=== PATIENT | female | born 1955 | race Caucasian/White ===

== ENCOUNTER 2022-08-28 13:36 | Outpatient (OUT) | payer MEDICARE, SELFPAY ==
[2022-08-28 15:41] LABS: Estimated Average Glucose 180 mg/dL; Glycohemoglobin A1C 7.9 % (4.5-6.2)
== END 2022-08-28 13:37 ==
LOC: LAB 13:41
PROVIDERS: PCP Nurse Practitioner; Visit Provider Nurse Practitioner
DX: E11.9 Type 2 diabetes mellitus without complications (principal)
CPT/HCPCS: 36415; 83036

== ENCOUNTER 2023-01-26 11:45 | Outpatient (OUT) | payer MEDICARE, SELFPAY ==
[2023-01-26 12:28] LABS: Basophils Percent Auto 0.6 % (0.2-2.0); Eosinophils Absolute Auto 0.1 10^3/uL (0.0-0.7); Eosinophils Percent Auto 1.5 % (0.9-7.0); Hematocrit 43.7 % (36.0-48.0); Immature Granulocytes Abs Auto 0.02 10^3/uL (0.00-0.03); Immature Granulocytes Pct Auto 0.3 % (0.0-0.5); Lymphocytes Absolute Auto 2.3 10^3/uL (1.2-3.8); Mean Corpuscular Volume 90.7 fL (81.0-99.0); Mean Platelet Volume 8.9 fL (9.5-13.5); Monocytes Absolute Auto 0.4 10^3/uL (0.3-0.8); Monocytes Percent Auto 6.5 % (1.7-12.0); Neutrophils Absolute Auto 3.9 10^3/uL (1.4-6.5); Neutrophils Percent Auto 57.1 % (43.0-75.0); Platelet Count 222 10^3/uL (150-450); Red Blood Count 4.82 10^6/uL (4.20-5.40); White Blood Count 6.7 10^3/uL (4.0-11.0)
[2023-01-26 12:32] LABS: Bilirubin Urine NEGATIVE (NEGATIVE); Blood Urine NEGATIVE (NEGATIVE); Color Urine LT. YELLOW (YELLOW); Glucose Urine UA NEGATIVE (NEGATIVE); Ketones Urine TRACE mg/dL (NEGATIVE); Leukocyte Esterase Urine SMALL (NEGATIVE); Nitrite Urine NEGATIVE (NEGATIVE); Protein Urine NEGATIVE (NEG/TRACE); Urobilinogen Urine 0.2 EU/dL (0.2-1.0); pH Urine 6.5 (5.0-9.0)
[2023-01-26 12:39] LABS: Bacteria Urine TRACE #/HPF (NONE SEEN); Cast Seen? NONE SEEN #/LPF (NONE SEEN); Clarity Urine SLIGHTLY CLOUDY (CLEAR); Crystals Seen? None Seen #/HPF (None Seen); Mucus Urine NONE SEEN (NONE SEEN); RBC Urine NONE SEEN #/HPF (0-2); Squamous Epithelial Cell Urine RARE #/LPF (NONE/RARE)
[2023-01-26 12:47] LABS: Alanine Aminotransferase 50 U/L (14-59); Albumin Globulin Ratio 0.9; Albumin Level 3.6 g/dL (3.4-5.0); Alkaline Phosphatase 150 U/L (46-116); Anion Gap 8.4; Aspartate Amino Transferase 34 U/L (15-37); BUN Creatinine Ratio 24.6; Bilirubin Total 0.3 mg/dL (0.2-1.0); Calcium 9.3 mg/dL (8.5-10.1); Carbon Dioxide 32.4 mmol/L (21.0-32.0); Chloride 98 mmol/L (98-107); Chol HDL Ratio 2.4; Cholesterol 138 mg/dL (<=200); Estimated GFR (African America >60 (>=60); Estimated GFR (Non-African Ame >60 (>=60); Glucose 158 mg/dL (74-106); HDL Cholesterol 58 mg/dL (40-60); LDL Cholesterol Calculated 51.6 mg/dL; Potassium 3.8 mmol/L (3.5-5.1); Sodium 135 mmol/L (136-145); Total Protein 7.6 g/dL (6.4-8.2); Triglycerides 142 mg/dL (<=150); VLDL CHOLESTEROL 28.4 mg/dL
[2023-01-26 12:48] LABS: Microalbumin Urine Random 2.3 mg/dL (<=30.0)
[2023-01-26 12:56] LABS: Estimated Average Glucose 197 mg/dL; Glycohemoglobin A1C 8.5 % (4.5-6.2)
== END 2023-01-26 11:46 | disposition home or self-care (01) ==
LOC: LAB 11:48
PROVIDERS: PCP Nurse Practitioner; Visit Provider Nurse Practitioner
DX: E11.9 Type 2 diabetes mellitus without complications (principal)
CPT/HCPCS: 36415; 80053; 80061; 81001; 82043; 83036; 85025

== ENCOUNTER 2023-05-08 09:27 | Outpatient (OUT) | payer MEDICARE, SELFPAY ==
--- OUTSIDE RECORDS SUMMARY | 2023-05-08 09:49 | XMS_ITS | CCD ---
Author Name Unknown Address [address] [place] [address] Organization [facility] Care Team Providers Care Obstetrics And Gynecology Professor Name Role Phone ROSSANA ALICIA Primary Care Physician Julian BONILLA Attending Unavailable NILJulian Khoury Attending Unavailable AICHHOLZ, ROSSANA J Referring Unavailable NILJulian Khoury Attending Unavailable Julian BONILLA Attending Unavailable AICHHOLZ, ROSSANA J Referring Unavailable AICHHOLZ, CULINARY MANAGER ROSSANA Admitting Unavailable AICHHOLZ, CULINARY MANAGER ROSSANA Attending Unavailable AICHHOLZ, CULINARY MANAGER ROSSANA Consulting Unavailable AICHHOLZ, CULINARY MANAGER ROSSANA Primary Care Unavailable NILL ., DR GUERRA Attending Unavailable NILL ., DR GUERRA Consulting Unavailable NILL ., DR GUERRA Admitting Unavailable AICHHOLZ, CULINARY MANAGER ROSSANA Primary Care Unavailable GURPREET II, PHILIP Consulting Unavailable CIERRA MAGANA Consulting Unavailable AICHHOLZ, CULINARY MANAGER ROSSANA Admitting Unavailable AICHHOLZ, CULINARY MANAGER ROSSANA Attending Unavailable AICHHOLZ, CULINARY MANAGER ROSSANA Consulting Unavailable AICHHOLZ, CULINARY MANAGER ROSSANA Primary Care Unavailable AICHHOLZ, CULINARY MANAGER ROSSANA Primary Care Unavailable AICHHOLZ, CULINARY MANAGER ROSSANA Admitting Unavailable AICHHOLZ, CULINARY MANAGER ROSSANA Attending Unavailable AICHHOLZ, CULINARY MANAGER ROSSANA Consulting Unavailable AICHHOLZ, CULINARY MANAGER ROSSANA Primary Care Unavailable DR RUDDY ROSALES V Consulting Unavailable AICHHOLZ, CULINARY MANAGER ROSSANA Admitting Unavailable AICHHOLZ, CULINARY MANAGER ROSSAAN Attending Unavailable AICHHOLZ, CULINARY MANAGER ROSSANA Consulting Unavailable AICHHOLZ, ROSSANA Attending Unavailable AICHHOLZ, ROSSANA Attending Unavailable CIERRA DRUMMOND Attending Unavailable Allergies Allergy Classification Reported Allergen(s) Allergy Type Date of Onset Reaction(s) Facility (3 sources) Cefaclor; Translations: [cefaclor] Drug Allergy Abnormal breathing (finding) [facility] (3 sources) Penicillin; Translations: [penicillin] Drug Allergy Weal (disorder), Abnormal breathing (finding) [facility] (3 sources) Streptococcus pneumoniae type 1 capsular polysaccharide antigen / Streptococcus pneumoniae type 10A capsular polysaccharide antigen / Streptococcus pneumoniae type 11A capsular polysaccharide antigen / Streptococcus pneumoniae type 12F capsular polysaccharide antigen / Streptococcus pneumoniae type 14 capsular polysaccharide antigen / Streptococcus pneumoniae type 15B capsular polysaccharide antigen / Streptococcus pneumoniae type 17F capsular polysaccharide antigen / Streptococcus pneumoniae type 18C capsular polysaccharide antigen / Streptococcus pneumoniae type 19A capsular polysaccharide antigen / Streptococcus pneumoniae type 19F capsular polysaccharide antigen / Streptococcus pneumoniae type 2 capsular polysaccharide antigen / Streptococcus pneumoniae type 20 capsular polysaccharide antigen / Streptococcus pneumoniae type 22F capsular polysaccharide antigen / Streptococcus pneumoniae type 23F capsular polysaccharide antigen / Streptococcus pneumoniae type 3 capsular polysaccharide antigen / Streptococcus pneumoniae type 33F capsular polysaccharide antigen / Streptococcus pneumoniae type 4 capsular polysaccharide antigen / Streptococcus pneumoniae type 5 capsular polysaccharide antigen / Streptococcus pneumoniae type 6B capsular polysaccharide antigen / Streptococcus pneumoniae type 7F capsular polysaccharide antigen / Streptococcus pneumoniae type 8 capsular polysaccharide antigen / Streptococcus pneumoniae type 9N capsular polysaccharide antigen / Streptococcus pneumoniae type 9V capsular polysaccharide antigen; Translations: [pneumococcal 23-valent vaccine] Drug Allergy Dyspnea (finding), Weal (disorder) [facility] (1 source) Cefaclor Drug Allergy 4 [facility] (1 source) Penicillins Drug allergy (disorder) 4 [facility] (1 source) Pneumovax 23 Drug allergy (disorder) 4 [facility] Medications Current Medications Medication Drug Class(es) Dates Sig (Normalized) Sig (Original) amLODIPine 2.5 mg oral tablet (2 sources) Dihydropyridine Calcium Channel Miriam Start: 03-13-20 Norvasc 2.5 mg Tab Refills(s) 0 Start Date: 03/13/19 Status: Ordered aspirin 81 mg delayed release oral tablet (2 sources) Platelet Aggregation Inhibitor, Nonsteroidal Anti-inflammatory Drug Start: 08-16-19 take 1 mg by mouth once daily aspirin 81 mg Oral EC Tab mg tab(s), Oral, Daily, Refills(s) 0 Start Date: 08/15/18 Status: Ordered atorvastatin 80 mg oral tablet (2 sources) HMG-CoA Reductase Inhibitor Start: 04-18-19 take 1 tablet by mouth once daily atorvastatin 80 mg Tab 80 mg = 1 tab(s), Oral, Daily, Refills(s) 0 Start Date: 04/18/22 Status: Ordered 0.5 ml dulaglutide 1.5 mg/ml auto-injector (2 sources) GLP-1 Receptor Agonist Start: 03-13-20 Trulicity Pen 0.75 mg/0.5 mL subcutaneous solution Refills(s) 0 Start Date: 03/13/19 Status: Ordered glucosamine hydrochloride 1500 mg oral tablet (2 sources) Start: 08-16-19 take 1500 mg by mouth once daily glucosamine 1,500 mg, Oral, Daily, Refills(s) 0 Start Date: 08/15/18 Status: Ordered hydroCHLOROthiazide 25 mg oral tablet (2 sources) Thiazide Diuretic Start: 03-13-20 hydrochlorothiazide 25 mg oral tablet Refills(s) 0 Start Date: 03/13/19 Status: Ordered metFORMIN hydrochloride 500 mg oral tablet (2 sources) Biguanide Start: 03-13-20 metformin 500 mg oral tablet Refills(s) 0 Start Date: 03/13/19 Status: Ordered metoprolol tartrate 25 mg oral tablet (2 sources) beta-Adrenergic Miriam Start: 08-16-19 take 1 tablet by mouth once daily Metoprolol tartrate 25 mg Tab 25 mg = 1 tab(s), Oral, Daily, # 30 tab(s), Refills(s) 0 Start Date: 08/15/18 Status: Ordered nystatin topical 100,000 units/g powder (2 sources) Start: 08-16-19 nystatin topical 100,000 units/g powder danny, Topical, TID, Refill(s) 0 Start Date: 08/15/18 Status: Ordered ProAir HFA 90 mcg/inh inhalation aerosol (2 sources) Start: 08-16-19 take 1 puff(s) by inhalation four times daily ProAir HFA 90 mcg/inh inhalation aerosol puff(s), Inhalation, QID, Refill(s) 0 Start Date: 08/15/18 Status: Ordered Completed/Discontinued Medications Medication Drug Class(es) Dates Sig (Normalized) Sig (Original) fluticasone / vilanterol (2 sources) Corticosteroid, beta2-Adrenergic Agonist Start: 08-15-2018 take 1 [IU] by inhalation once daily Breo Ellipta 100 mcg-25 mcg inhalation powder 1 puff(s), Inhalation, Daily, 1 unit(s), Refill(s) 2, 30 dose unit Start Date: 08/15/18 Status: Ordered Problems Active Problems Problem Classification Problem Date Documented Da te Episodic/Chronic Asthma (2 sources) Asthma 03-13-2019 Chronic Chronic obstructive pulmonary disease and bronchiectasis (4 sources) Pulmonary emphysema; Translations: [Emphysema, unspecified] Onset: 12-23-2021 03-13-2019 Chronic Diabetes mellitus with complications (1 source) Type 2 diabetes mellitus with diabetic peripheral angiopathy without gangrene; Translations: [TYPE 2 DM DIAB P ANGIOPATH NO GNGRN] Onset: 05-23-2022 Chronic Diabetes mellitus without complication (6 sources) Diabetes mellitus; Translations: [Type 2 diabetes mellitus without complications] Onset: 12-21-2021 03-13-2019 Chronic Disorders of lipid metabolism (3 sources) Hyperlipidemia; Translations: [Hyperlipidemia, unspecified] Onset: 05-23-2022 04-14-2022 Chronic Essential hypertension (3 sources) Benign essential hypertension; Translations: [Essential (primary) hypertension] Onset: 05-23-2022 08-15-2018 Chronic Other aftercare (1 source) senior care (current) use of aspirin; Translations: [PICU NURSE CURRENT USE OF ASPIRIN] Onset: 05-23-2022 Episodic Other aftercare (1 source) 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 (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) use of oral hypoglycemic drugs; Translations: [GROUP HOME USE ORAL HYPOGLYCEMIC DX] Onset: 05-23-2022 Episodic Other and unspecified benign neoplasm (2 sources) Benign neoplasm of ascending colon; Translations: [Benign neoplasm of ascending colon] Onset: 05-31-2022 Episodic Other and unspecified benign neoplasm (2 sources) Benign neoplasm of transverse colon; Translations: [Benign neoplasm of transverse colon] Onset: 05-31-2022 Episodic Other and unspecified benign neoplasm (1 source) Benign neoplasm of ascending colon; Translations: [BENIGN NEOPLASM OF ASCENDING COLON] Onset: 05-23-2022 Episodic Other and unspecified benign neoplasm (1 source) Benign neoplasm of transverse colon; Translations: [BENIGN NEOPLASM OF TRANSVERSE COLON] Onset: 05-23-2022 Episodic Other nutritional; endocrine; and metabolic disorders (2 sources) Morbid obesity 08-15-2018 Chronic Other nutritional; endocrine; and metabolic disorders (1 source) Morbid (severe) obesity due to excess calories; Translations: [MORBID SEVERE OBES D/T EXCESS HUNTER] Onset: 05-23-2022 Chronic Other nutritional; endocrine; and metabolic disorders (1 source) Body mass index (BMI) 40.0-44.9, adult; Translations: [BODY MASS INDEX BMI 40.0-44.9 ADULT] Onset: 05-23-2022 Chronic Other screening for suspected conditions (not mental disorders or infectious disease) (11 sources) Screening for malignant neoplasm of colon done; Translations: [Encounter for screening for malignant neoplasm of colon] Onset: 04-18-2022 Episodic Other upper respiratory disease (2 sources) Hoarse 04-14-2022 Episodic Peripheral and visceral atherosclerosis (2 sources) Peripheral vascular disease 04-14-2022 Chronic Residual codes; unclassified (2 sources) Sleep apnea 04-14-2022 Chronic Residual codes; unclassified (1 source) Sleep apnea, unspecified; Translations: [SLEEP APNEA UNSPECIFIED] Onset: 05-23-2022 Chronic Residual codes; unclassified (2 sources) Edema of lower extremity 04-14-2022 Episodic Residual codes; unclassified (1 source) Family history of malignant neoplasm of breast; Translations: [FAMILY HX MALIG NEOPLASM OF BREAST] Onset: 06-15-2022 Episodic Residual codes; unclassified (1 source) Family history of malignant neoplasm of bladder; Translations: [FAM HX MALIGNANT NEOPLASM BLADDER] Onset: 06-15-2022 Episodic Residual codes; unclassified (1 source) Family history of malignant neoplasm of other organs or systems; Translations: [FAM HX MALIG NEOPLASM OTH ORGN/SYS] Onset: 06-15-2022 Episodic Residual codes; unclassified (1 source) Acquired absence of other specified parts of digestive tract; Translations: [ACQ ABSENCE OTH PART DIGESTV TRACT] Onset: 05-23-2022 Episodic Retinal detachments; defects; vascular occlusion; and retinopathy (2 sources) Retinal artery occlusion 04-14-2022 Chronic Screening and history of mental health and substance abuse codes (1 source) Personal history of nicotine dependence; Translations: [PERSONAL HISTORY OF NICOTINE DEPEND] Onset: 05-23-2022 Episodic Unclassified (2 sources) Patient encounter status 04-18-2022 Unclassified (3 sources) CONTACT W/AND (SUSP) EXPOS COVID-19; Translations: [CONTACT W/AND (SUSP) EXPOS COVID-19] Onset: 09-03-2021 Past or Other Problems Problem Classification Problem Date Documented Da te Episodic/Chronic Unclassified (1 source) CONTACT W/AND (SUSP) EXPOS COVID-19; Translations: [CONTACT W/AND (SUSP) EXPOS COVID-19] Onset: 09-01-2021 Results Test Name Value Interpretation Reference Range Facility MG MAMM SCREEN 3D JOSE CADon 06-07-2022 MG MAMM SCREEN 3D JOSE CAD Patient: JAYE PIRES Exam Date: 06/07/2022 : 1955 Gender:F Ordering : RON ROSSANABernice ALICIA CULINARY MANAGER Admission #: [id number] Family : Order #: [id number] CLICK HERE TO VIEW EXAM RADIOLOGY REPORT PROCEDURE: MAMMOGRAM SCREENING 3D BILATERAL CAD COMPARISON: MG MAMM SCREEN JOSE W CAD, 10/09/2019. MG MAMM SCREEN 3D JOSE CAD, 05/31/2021. INDICATIONS: Screening mammography Calculator Name NCI Breast Cancer Risk Assessment Tool 5 Year Breast Cancer Risk 5.80% Lifetime Breast Cancer Risk 18.80% Personal Breast Cancer No Personal Ovarian Cancer No Treatments None Family Cancers Sister with breast cancer at age 65; Mother with breast cancer at age 60; Brother with bladder cancer at age 63; Brother with skin cancer at age 50; Father with skin cancer at age 60. LOCATION: [facility] BREAST COMPOSITION: Scattered areas fibroglandular density. FINDINGS: DIAGNOSTIC CATEGORY 1--NEGATIVE. NO CHANGE FROM COMPARISON ASSESSMENT. Scattered benign-appearing calcifications are present. RIGHT BREAST: No significant suspicious finding. LEFT BREAST: No significant suspicious finding. RECOMMENDATIONS: ROUTINE MAMMOGRAM AND CLINICAL EVALUATION IN 12 MONTHS. PLEASE NOTE: A NORMAL MAMMOGRAM DOES NOT EXCLUDE THE POSSIBILITY OF BREAST CANCER. A CLINICALLY SUSPICIOUS PALPABLE LUMP SHOULD BE BIOPSIED. Dictated by: Ruddy Rosales MD on 06/07/2022 at 13:31 Approved by: Ruddy Rosales MD on 06/07/2022 at 13:35 Normal [facility] Ambulatory Visit Summaryon 0 05-31-2022 Ambulatory Visit Summary JAYE PIRES :1955 Visit Date:05/31/2022 Ambulatory Visit Instructions Your Diagnosis Benign neoplasm of ascending colon Benign neoplasm of transverse colon Your Care Team Attending Physician - FRANKLIN CORTEZ, Julian Carrera Primary Care Physician - ROSSANA ALICIA CNP This Is Your Medications List Contact prescribing physician if questions or concerns albuterol (ProAir HFA 90 mcg/inh inhalation aerosol) amlodipine (Norvasc 2.5 mg Tab) aspirin (aspirin 81 mg Oral EC Tab) atorvastatin (atorvastatin 80 mg Tab) dulaglutide (Trulicity Pen 0.75 mg/0.5 mL subcutaneous solution) fluticasone-vilanterol (Breo Ellipta 100 mcg-25 mcg inhalation powder) glucosamine hydrochlorothiazide (hydrochlorothiazide 25 mg oral tablet) metformin (metformin 500 mg oral tablet) metoprolol (Metoprolol tartrate 25 mg Tab) nystatin topical (nystatin topical 100,000 units/g powder) Procedures Performed Colonoscopy (05/17/2022), EGD - Esophagogastroduodenoscopy (05/17/2022), Cholecystectomy (2013), Colonoscopy (02/22/2011), Tonsils and adenoids (1969), Dilation and curettage, EGD - Esophagogastroduodenoscopy, Excision of lipoma, Oophorectomy. Medications What How Much When Instructions Unchanged albuterol (ProAir HFA 90 mcg/ inh inhalation aerosol) Inhalation 4 times a day Contact prescribing physician if questions or concerns Unchanged amlodipine (Norvasc 2.5 mg Tab) Contact prescribing physician if questions or concerns Unchanged aspirin (aspirin 81 mg Oral EC Tab) By Mouth Every day Contact prescribing physician if questions or concerns Unchanged atorvastatin (atorvastatin 80 mg Tab) 1 Tablets By Mouth Every day Contact prescribing physician if questions or concerns Unchanged dulaglutide (Trulicity Pen 0.75 mg/ 0.5 mL subcutaneous solution) Contact prescribing physician if questions or concerns Unchanged fluticasone-vilanterol (Breo Ellipta 100 mcg-25 mcg inhalation powder) 1 Puffs Inhalation Every day 30 dose unit Contact prescribing physician if questions or concerns Unchanged glucosamine 1,500 Milligram By Mouth Every day Contact prescribing physician if questions or concerns Unchanged hydrochlorothiazide (hydrochlorothiazide 25 mg oral tablet) Contact prescribing physician if questions or concerns Unchanged metformin (metformin 500 mg oral tablet) Contact prescribing physician if questions or concerns Unchanged metoprolol (Metoprolol tartrate 25 mg Tab) 1 Tablets By Mouth Every day Contact prescribing physician if questions or concerns Unchanged nystatin topical (nystatin topical 100,000 units/ g powder) Topical 3 times a day Contact prescribing physician if questions or concerns Allergies Ceclor (Breathing abnormal) Pneumovax 23 (SOB - Shortness of breath, Hives) penicillin (Hives, Breathing abnormal) Problems Ongoing - Any problem that you are currently receiving treatment for. Abnormal liver function test Asthma Benign essential hypertension Diabetes mellitus Emphysema lung Hyperlipidemia Lower extremity edema Morbid obesity Persistent hoarseness PVD (peripheral vascular disease) Retinal artery occlusion Screening for malignant neoplasm of colon Sleep apnea Tubular adenoma of colon Tubular adenoma of colon Normal [facility] General Surgery Office/Clini c Noteon 05-31-2022 General Surgery Office/Clinic Note Chief Complaint post operative follow up HPI Staff 14 day post operative follow up post colonoscopy with ascending colon and transverse colon polypectomies. History of Present Illness s/p colonoscopy with polypectomy x2; denies abd pain or blood in stools; 2 small tubular adenomas removed from asc and transverse colon. Review of Systems ROS - Provider Constitutional: no fever, no sweats, no weight loss. Eyes: no glasses, no blurred vision, no visual loss. ENMT: no dentures, no hoarseness, no swallowing difficulties, no hearing loss, no ear infection(s), no nose bleeds. Cardiovascular: normal blood pressure, no chest pain, regular heartbeat, no heart murmur. Respiratory: no shortness of breath, no cough, no asthma, no wheezing. Gastrointestinal: no nausea, no vomiting, no diarrhea, no constipation, no blood in stool, no change in bowel habits, no abdominal pain, no hepatitis. Genitourinary: no kidney stones, no urine infection, no dysuria. Musculoskeletal: no pain, no weakness. Skin: no changing moles, no rash, no skin lumps. Neurologic: no seizures, no epilepsy, no headache. Psychiatric: no emotional or psychiatric problem. Heme/Lymph: no bleeding problems, no anemia, no blood clots, no transfusions. Allergy/Immunologic: no swollen lymph nodes/glands, no IV drug abuse. Other: Additional ROS info: Except as noted in the above Review of Systems and in the History of Present Illness, all other systems have been reviewed and are negative or noncontributory. Assessment/Plan 1. Benign neoplasm of ascending colon (D12.2: Benign neoplasm of ascending colon) plan surveillance colonoscopy in 5 years; call sooner if problems/questions. 2. Benign neoplasm of transverse colon (D12.3: Benign neoplasm of transverse colon) see # 1 Follow-up No qualifying data available Problem List/Past Medical History Ongoing Abnormal liver function test Asthma Benign essential hypertension Diabetes mellitus Emphysema lung Hyperlipidemia Lower extremity edema Morbid obesity Persistent hoarseness PVD (peripheral vascular disease) Retinal artery occlusion Screening for malignant neoplasm of colon Sleep apnea Tubular adenoma of colon Tubular adenoma of colon Historical No qualifying data Procedure/Surgical History Colonoscopy (05/17/2022), EGD - Esophagogastroduodenoscopy (05/17/2022), Cholecystectomy (2013), Colonoscopy (02/22/2011), Tonsils and adenoids (1969), Dilation and curettage, EGD - Esophagogastroduodenoscopy, Excision of lipoma, Oophorectomy. Medications aspirin 81 mg Oral EC Tab, Oral, Daily atorvastatin 80 mg Tab, 80 mg= 1 tab(s), Oral, Daily Breo Ellipta 100 mcg-25 mcg inhalation powder, 1 puff(s), Inhalation, Daily glucosamine, 1500 mg, Oral, Daily hydrochlorothiazide 25 mg oral tablet metformin 500 mg oral tablet Metoprolol tartrate 25 mg Tab, 25 mg= 1 tab(s), Oral, Daily Norvasc 2.5 mg Tab nystatin topical 100,000 units/g powder, Topical, TID ProAir HFA 90 mcg/inh inhalation aerosol, Inhalation, QID Trulicity Pen 0.75 mg/0.5 mL subcutaneous solution Allergies Ceclor (Breathing abnormal) Pneumovax 23 (SOB - Shortness of breath, Hives) penicillin (Hives, Breathing abnormal) Social History Alcohol - No Risk, 03/13/2019 1-2 times per year, 03/13/2019 Substance Abuse - Denies Substance Abuse, 03/13/2019 Tobacco - Denies Tobacco Use, 03/13/2019 Former smoker, quit more than 30 days ago Tobacco Use:. Never Smokeless Tobacco Use:. Cigarettes, 1 per day. Started age 16.0 Years. Stopped age 40 Years., 04/18/2022 Family History Diabetes mellitus type 2: Father and Brother. Hypertension: Father, Sister and Brother. Leukemia: Mother. Ovarian cancer: Sister. Primary malignant neoplasm of bladder: Father and Brother. Primary malignant neoplasm of female breast: Mother and Sister. Immunizations Vaccine Date Status Comments SARSCoV2 mRNA(acngpuiau-gzjs-ebnyaj) vac 08/18/2021 Recorded SARS-CoV-2 (COVID-19) mRNA BNT-162b2 vax 01/10/2021 Recorded influenza virus vaccine, inactivated 12/14/2020 Recorded SARS-CoV-2 (COVID-19) mRNA BNT-162b2 vax 06/18/2020 Recorded SARS-CoV-2 (COVID-19) mRNA BNT-162b2 vax 05/29/2020 Recorded 2022-04-18: TPV65 influenza virus vaccine, live, trivalent 12/30/2018 Recorded Normal [facility] Comment on above: Result Comment: Elec tronically Signed By: FRANKLIN CORTEZ, Julian Smith\Date and Time Signed: 05/31/22 14:36 EST Reminderson 05-31-2022 Reminders - From: Billie Curtis LPN To: N - Clinical; Sent: 05/31/2022 16:01:22 EST Show up: 04/16/2027 07:00:00 EST Subject: colonoscopy recall Due Date/Time: 05/17/2027 07:00:00 EST Reminder/Recall Patient is due for colonoscopy 05/17/27 due to history of colonic polyps. Normal [facility] Pathology Noteon 05-19-2022 Pathology Note [id number]#1.00CD:127 Normal [facility] Outside Colonoscopyon 2022 Outside Colonoscopy [id number]#[id number]:127 Normal [facility] POINT OF CARE GLUCOSEon 04-27 Glucose [Mass/Vol] 176 mg/dL Critically high 74-106 [facility] Comment on above: Performed By: #### P OCGLUC ####[facility] [address] [address]DrMavis Estrella Pre-Certification Formon Pre-Certification Form [id number]#[id number]:127 Normal [facility] Facesheeton 04-20-2022 Facesheet [id number]#[id number]:127 Normal [facility] Consent for Procedure/Surger yon 04-19-2022 Consent for Procedure/Surgery [id number]#[id number]:127 Normal [facility] Physician Referralon 023 Physician Referral [id number]#[id number]:127 Normal [facility] Physician Referralon 023 Physician Referral [id number]#1.00CD:127 Normal [facility] MICROALBUMIN URINEon 022 Albumin, Urine <3.0 Normal Not Estab. [facility] Comment on above: Result Comment: Ve rified by repeat analysis Performed By: #### M ALBLC #### [facility] [address] [place] [address] Dr. Aga Estrella CBC AUTO DIFFon 12-21-2021 BASO # 0.0 103/ul Normal 0.0-0.1 [facility] Comment on above: Performed By: #### C BC #### [facility] [address] [place] [address] Dr. Aga Estrella Basophils/100 WBC (Bld) 0.4 % Normal 0.2-2.0 [facility] Comment on above: Performed By: #### C BC #### [facility] [address] [place] [address] Dr. Aga Estrella EO # 0.1 103/ul Normal 0.0-0.7 [facility] Comment on above: Performed By: #### C BC #### [facility] [address] [place] [address] Dr. Aga Estrella Eosinophils/100 WBC (Bld) 1.6 % Normal 0.9-7.0 [facility] Comment on above: Performed By: #### C BC #### [facility] [address] [place] [address] Dr. Aga Estrella Erythrocyte distribution width (RBC) [Ratio] 14.2 % Normal 11.0-15.0 [facility] Comment on above: Performed By: #### C BC #### [facility] [address] [place] [address] Dr. Aga Estrella Hematocrit (Bld) [Volume fraction] 42.1 % Normal 36.0-48.0 [facility] Comment on above: Performed By: #### C BC #### [facility] [address] [place] [address] Dr. Aga Estrella Hemoglobin (Bld) [Mass/Vol] 13.1 g/dL Normal 12.0-16.0 [facility] Comment on above: Performed By: #### C BC #### [facility] [address] [place] [address] Dr. Aga Estrella IG # 0.02 10e3/ul Normal 0.00-0.03 [facility] Comment on above: Performed By: #### C BC #### [facility] [address] [place] [address] Dr. Aga Estrella IG % 0.4 % Normal 0.0-0.5 [facility] Comment on above: Performed By: #### C BC #### [facility] [address] [place] [address] Dr. Aga Estrella LYMPH # 1.7 103/ul Normal 1.2-3.8 [facility] Comment on above: Performed By: #### C BC #### [facility] [address] [place] [address] Dr. Aga Estrella Lymphocytes/100 WBC (Bld) 29.4 % Normal 20.5-60.0 [facility] Comment on above: Performed By: #### C BC #### [facility] [address] [place] [address] Dr. Aga Estrella MANUAL DIFF REQ NO Normal [facility] Comment on above: Performed By: #### C BC #### [facility] [address] [address] [address] Aag Estrella MCH (RBC) [Entitic mass] 28.8 pg Normal 26.7-34.0 [facility] Comment on above: Performed By: #### C BC #### [facility] [address] [place] [address] Dr. Aga Estrella MCHC (RBC) [Mass/Vol] 31.1 g/dL Normal 29.9-35.2 [facility] Comment on above: Performed By: #### C BC #### [facility] [address] [place] [address] Dr. Aga Estrella MCV (RBC) [Entitic vol] 92.5 fL Normal 81.0-99.0 [facility] Comment on above: Performed By: #### C BC #### [facility] [address] [place] [address] Dr. Aga Estrella MONO # 0.4 103/ul Normal 0.3-0.8 [facility] Comment on above: Performed By: #### C BC #### [facility] [address] [place] [address] Dr. Aga Estrella Monocytes/100 WBC (Bld) 6.4 % Normal 1.7-12.0 [facility] Comment on above: Performed By: #### C BC #### [facility] [address] [place] [address] Dr. Aga Estrella NEUT # 3.5 103/ul Normal 1.4-6.5 [facility] Comment on above: Performed By: #### C BC #### [facility] [address] [place] [address] Dr. Aga Estrella Neutrophils/100 WBC (Bld) 61.8 % Normal 43.0-75.0 [facility] Comment on above: Performed By: #### C BC #### [facility] [address] [place] [address] Dr. Aga Estrella Platelet mean volume (Bld) [Entitic vol] 10.2 fL Normal 9.5-13.5 [facility] Comment on above: Performed By: #### C BC #### [facility] [address] [address] [address] Aga Estrella PLT 195 103/ul Normal 150-450 [facility] Comment on above: Performed By: #### C BC #### [facility] [address] [place] [address] Dr. Aga Estrella RBC 4.55 106/ul Normal 4.20-5.40 [facility] Comment on above: Performed By: #### C BC #### [facility] [address] [place] [address] Dr. Aga Estrella WBC 5.7 103/ul Normal 4.0-11.0 [facility] Comment on above: Performed By: #### C BC #### [facility] [address] [place] [address] Dr. Aga Estrella GLYCOHEMOGLOBIN A1Con 2021 ADA RECOMMENDATION SEE BELOW Normal [facility] Comment on above: Result Comment: ADA RECOMMENDED LIMIT 4.0 - 6.0 ADA THERAPEUTIC TARGET < 7.0 ACTION SUGGESTED > 7.0 Performed By: #### A 1C #### [facility] [address] [place] [address] Dr. Aga Estrella Glucose [Mass/Vol] 192 mg/dL Normal [facility] Comment on above: Performed By: #### A 1C #### [facility] [address] [place] [address] Dr. Aga Estrella HbA1c (Bld) [Mass fraction] 8.3 % Critically high 4.5-6.2 [facility] Comment on above: Performed By: #### A 1C #### [facility] [address] [place] [address] Dr. Aga Estrella LIPID PROFILEon 12-21-2021 CHOL-HDL RATIO NORM SEE BELOW Normal [facility] Comment on above: Result Comment: 3.3 - 4.4 LOW RISK 4.4 - 7.1 AVERAGE RISK 7.1 - 11.0 MODERATE RISK >11.0 HIGH RISK Performed By: #### L IPID, CMP #### [facility] [address] [address] [address] Aga Estrella Cholesterol [Mass/Vol] 123 mg/dL Normal <=200 [facility] Comment on above: Performed By: #### L IPID, CMP #### [facility] [address] [address] [address] Aga Estrella Cholesterol in HDL [Mass/Vol] 51 mg/dL Normal 40-60 [facility] Comment on above: Performed By: #### L IPID, CMP #### [facility] [address] [address] [address] Aga Estrella Cholesterol in LDL [Mass/Vol] 45.8 mg/dL Normal [facility] Comment on above: Performed By: #### L IPID, CMP #### [facility] [address] [place] [address] Dr. Aga Estrella Cholesterol.total/ Cholesterol in HDL [Mass ratio] 2.4 {ratio} Normal [facility] Comment on above: Performed By: #### L IPID, CMP #### [facility] [address] [address] [address] Aga Estrella HDL NORMAL > or = 60 mg/dl - LO W CARDIOVASCULAR RISK <40 mg/dl - HIGH CARDIOVASCULAR RISK Normal [facility] Comment on above: Performed By: #### L IPID, CMP #### [facility] [address] [address] [address] Aga Estrella LDL CALC NORMAL SEE BELOW Normal [facility] Comment on above: Result Comment: <100 mg/dl OPTIMAL 100 - 129 mg/dl NEAR OR ABOVE OPTIMAL 130 - 159 mg/dl BORDERLINE HIGH 160 - 189 mg/dl HIGH >190 mg/dl VERY HIGH Performed By: #### L IPID, CMP #### [facility] [address] [address] [address] Aga Estrella Triglyceride [Mass/Vol] 131 mg/dL Normal <=150 [facility] Comment on above: Performed By: #### L IPID, CMP #### [facility] [address] [address] [address] Aga Estrella VLDL CALC 26.2 mg/dL Normal [facility] Comment on above: Performed By: #### L IPID, CMP #### [facility] [address] [address] [address] Aga Estrella PROF 14(COMP METB)on 022 Albumin [Mass/Vol] 3.5 g/dL Normal 3.4-5.0 [facility] Comment on above: Performed By: #### L IPID, CMP #### [facility] [address] [place] [address] Dr. Aga Estrella Albumin/Globulin [Mass ratio] 1.0 {ratio} Normal [facility] Comment on above: Performed By: #### L IPID, CMP #### [facility] [address] [place] [address] Dr. Aga Estrella ALP [Catalytic activity/Vol] 147 U/L Critically high 46-116 [facility] Comment on above: Performed By: #### L IPID, CMP #### [facility] [address] [place] [address] Dr. Aga Estrella ALT [Catalytic activity/Vol] 42 U/L Normal 14-59 [facility] Comment on above: Performed By: #### L IPID, CMP #### [facility] [address] [place] [address] Dr. Aga Estrlela Anion gap [Moles/Vol] 12.2 mmol/L Normal [facility] Comment on above: Performed By: #### L IPID, CMP #### [facility] [address] [place] [address] Dr. Aga Estrella AST [Catalytic activity/Vol] 32 U/L Normal 15-37 [facility] Comment on above: Performed By: #### L IPID, CMP #### [facility] [address] [place] [address] Dr. Aga Estrella Bilirubin [Mass/Vol] 0.3 mg/dL Normal 0.2-1.0 [facility] Comment on above: Performed By: #### L IPID, CMP #### [facility] [address] [place] [address] Dr. Aga Estrella Calcium [Mass/Vol] 9.1 mg/dL Normal 8.5-10.1 [facility] Comment on above: Performed By: #### L IPID, CMP #### [facility] [address] [place] [address] Dr. Aga Estrella Chloride [Moles/Vol] 103 mmol/L Normal 98-107 [facility] Comment on above: Performed By: #### L IPID, CMP #### [facility] [address] [place] [address] Dr. Aga Estrella CO2 [Moles/Vol] 29.9 mmol/L Normal 21.0-32.0 [facility] Comment on above: Performed By: #### L IPID, CMP #### [facility] [address] [place] [address] Dr. Aga Estrella Creatinine [Mass/Vol] 0.65 mg/dL Normal 0.55-1.02 [facility] Comment on above: Performed By: #### L IPID, CMP #### [facility] [address] [place] [address] Dr. Aga Estrella EGFR-AF SAUDI ARABIAN >60 Normal >=60 [facility] Comment on above: Performed By: #### L IPID, CMP #### [facility] [address] [place] [address] Dr. Aga Estrella EGFR-NON AF SAUDI ARABIAN >60 Normal >=60 [facility] Comment on above: Performed By: #### L IPID, CMP #### [facility] [address] [place] [address] Dr. Aga Estrella Globulin (S) [Mass/Vol] 3.6 g/dL Normal [facility] Comment on above: Performed By: #### L IPID, CMP #### [facility] [address] [place] [address] Dr. Aga Estrella Glucose [Mass/Vol] 156 mg/dL Critically high 74-106 [facility] Comment on above: Performed By: #### L IPID, CMP #### [facility] [address] [place] [address] Dr. Aga Estrella Potassium [Moles/Vol] 4.1 mmol/L Normal 3.5-5.1 [facility] Comment on above: Performed By: #### L IPID, CMP #### [facility] [address] [address] [address] Aga Estrella Protein [Mass/Vol] 7.1 g/dL Normal 6.4-8.2 [facility] Comment on above: Performed By: #### L IPID, CMP #### [facility] [address] [place] [address] Dr. Aga Estrella Sodium [Moles/Vol] 141 mmol/L Normal 136-145 [facility] Comment on above: Performed By: #### L IPID, CMP #### [facility] [address] [place] [address] Dr. Aga Estrella Urea nitrogen [Mass/Vol] 13.0 mg/dL Normal 7.0-18.0 [facility] Comment on above: Performed By: #### L IPID, CMP #### [facility] [address] [place] [address] Dr. Aga Estrella Urea nitrogen/Creatinin e [Mass ratio] 20.0 mg/mg Normal [facility] Comment on above: Performed By: #### L IPID, CMP #### [facility] [address] [place] [address] Dr. Aga Estrella UA RANDOM W/MICROSCOPICon BACTERIA NONE SEEN Normal NONE SEEN [facility] Comment on above: Performed By: #### U AMIC ####[facility] [address] [place], [place] [address]Dr. Aga Estrella Bilirubin Ql (U) Negative Normal NEGATIVE [facility] Comment on above: Performed By: #### U AMIC ####[facility] [address] [address]Dr. Aga Estrella CAST NONE SEEN Normal NONE SEEN [facility] Comment on above: Performed By: #### U AMIC ####[facility] [address] [address]Dr. Aga Estrella Clarity (U) CLEAR Normal CLEAR [facility] Comment on above: Performed By: #### U AMIC ####[facility] [address] [address]Dr. Yilan Estrella Color (U) LT. YELLOW Normal YELLOW [facility] Comment on above: Performed By: #### U AMIC ####[facility] [address] [address]Dr. Yilan Estrella Crystals LM Nom (Urine sed) NONE SEEN Normal NONE SEEN [facility] Comment on above: Performed By: #### U AMIC ####[facility] [address] [address]Dr. Yilan Estrella Epithelial cells LM Ql (Urine sed) RARE Normal NONE SEEN /RARE [facility] Comment on above: Performed By: #### U AMIC ####[facility] [address] [place], [place] [address]Dr. Yilan Estrella Glucose Ql (U) Negative Normal NEGATIVE [facility] Comment on above: Performed By: #### U AMIC ####[facility] [address] [place], [place] [address]Dr. Yilan Estrella Hemoglobin Ql (U) Negative Normal NEGATIVE [facility] Comment on above: Performed By: #### U AMIC ####[facility] [address] [place], [place] [address]Dr. Yilan Estrella Ketones Ql (U) Negative Normal NEGATIVE [facility] Comment on above: Performed By: #### U AMIC ####[facility] [address] [place], [place] [address]Dr. Yilan Estrella LEUKOCYTES Negative Normal NEGATIVE [facility] Comment on above: Performed By: #### U AMIC ####[facility] [address] [address]Dr. Yilan Estrella MUCOUS NONE SEEN Normal NONE SEEN [facility] Comment on above: Performed By: #### U AMIC ####[facility] [address] [address]Dr. Yilan Estrella Nitrite Ql (U) Negative Normal NEGATIVE [facility] Comment on above: Performed By: #### U AMIC ####[facility] [address] [address]Dr. Aga Estrella pH (U) 6.0 [pH] Normal 5-9 [facility] Comment on above: Performed By: #### U AMIC ####[facility] [address] [address]Dr. Aga Estrella RBC NONE SEEN Abnormal 0-2 [facility] Comment on above: Performed By: #### U AMIC ####[facility] [address] [address]Dr. Aga Estrella SPEC GRAVITY 1.015 Normal 1.005-<=1.02 5 [facility] Comment on above: Performed By: #### U AMIC ####[facility] [address] [place], [place] [address]Dr. Aga Estrella UA PROTEIN Negative Normal NEGATIVE/ TRACE [facility] Comment on above: Performed By: #### U AMIC ####[facility] [address] [address]Dr. Aga Estrella Urobilinogen Qn (U) 0.2 {Kiya'U}/dL Normal 0.2 - 1.0 [facility] Comment on above: Performed By: #### U AMIC ####[facility] [address] [place], [place] [address]Dr. Aga Estrella WBC 0-2 Abnormal NONE SEEN [facility] Comment on above: Performed By: #### U AMIC ####[facility] [address] [place], [place] [address]Dr. Aga Estrella Covid-19 PCR (CVDTBH)on SARS-CoV-2 (COVID-19) RNA JOSE+probe Ql (Unsp spec) Not detected Normal NOT DETECTED [facility] Comment on above: Result Comment: This test is not yet approved or cleared by the [place] FDA. When there are no FDA-approved or cleared tests available, and other criteria are met, FDA can make tests available under an emergency access mechanism called an Emergency Use Authorization (EUA). The EUA for this test is supported by the Rural Service Engineer of Health and Human Service's (HHS's) declaration that circumstances exist to justify the emergency use of in vitro diagnostics for the detection and/or diagnosis of the virus that causes COVID-19. This EUA will remain in effect (meaning this test can be used) for the duration of the COVID-19 declaration justifying emergency of IVDs, unless it is terminated or revoked by FDA (after which the test may no longer be used). When diagnostic testing is negative, the possibility of a false negative should be considered in the context of a patient's recent exposures and the presence of clinical signs and symptoms consistent with SARS-CoV-2. Performed By: #### [facility] #### [facility] [address] [place] [address] Dr. Aga Estrella GLYCOHEMOGLOBIN A1Con 2021 ADA RECOMMENDATION ADA THERAPEUTIC TARG ET 6.0 - 7.0 ACTION SUGGESTED > 7.0 Normal [facility] Comment on above: Performed By: #### A 1C #### [facility] [address] [place] [address] Dr. Aga Estrella Glucose [Mass/Vol] 183 mg/dL Normal [facility] Comment on above: Performed By: #### A 1C #### [facility] [address] [place] [address] Dr. Aga Estrella HbA1c (Bld) [Mass fraction] 8.0 % Critically high <=6.0 [facility] Comment on above: Performed By: #### A 1C #### [facility] [address] [place] [address] Dr. Aga Estrella PROF CHEM 8 (BAS METB)on Anion gap [Moles/Vol] 9.0 mmol/L Normal [facility] Comment on above: Performed By: #### B MP #### [facility] [address] [place] [address] Dr. Aga Estrella Calcium [Mass/Vol] 8.6 mg/dL Normal 8.5-10.1 [facility] Comment on above: Performed By: #### B MP #### [facility] [address] [place] [address] Dr. Aga Estrella Chloride [Moles/Vol] 102 mmol/L Normal 98-107 [facility] Comment on above: Performed By: #### B MP #### [facility] [address] [address] [address] Aga Estrella CO2 [Moles/Vol] 32.7 mmol/L Critically high 22.0-30.0 [facility] Comment on above: Performed By: #### B MP #### [facility] [address] [address] [address] Aga Estrella Creatinine [Mass/Vol] 0.61 mg/dL Normal 0.52-1.04 [facility] Comment on above: Performed By: #### B MP #### [facility] [address] [address] [address] Aga Estrella EGFR-AF SAUDI ARABIAN >60 Normal >=60 [facility] Comment on above: Performed By: #### B MP #### [facility] [address] [address] [address] Aga Estrella EGFR-NON AF SAUDI ARABIAN >60 Normal >=60 [facility] Comment on above: Performed By: #### B MP #### [facility] [address] [address] [address] Aga Estrella Glucose [Mass/Vol] 187 mg/dL Critically high 74-106 [facility] Comment on above: Performed By: #### B MP #### [facility] [address] [address] [address] Aga Estrella Potassium [Moles/Vol] 3.7 mmol/L Normal 3.4-5.0 [facility] Comment on above: Performed By: #### B MP #### [facility] [address] [address] [address] Aga Estrella Sodium [Moles/Vol] 140 mmol/L Normal 137-145 [facility] Comment on above: Performed By: #### B MP #### [facility] [address] [address] [address] Aga Estrella Urea nitrogen [Mass/Vol] 13.0 mg/dL Normal 7.0-18.0 [facility] Comment on above: Performed By: #### B MP #### [facility] [address] [address] [address] Aga Estrella Urea nitrogen/Creatinin e [Mass ratio] 21.3 mg/mg Normal [facility] Comment on above: Performed By: #### B MP #### [facility] [address] [address] [address] Aga Estrella Vital Signs Date Time Vital Sign Value Performing Clinician Faci lity 04-18-2022 14:43-0500 Blood Pressure Location Julian NILL [facility] [place] 04-18-2022 14:43-0500 Diastolic blood pressure 88 mm[Hg] Julian NILL [facility] [place] 04-18-2022 14:43-0500 Heart rate 80 /min Julian NILL [facility] [place] 04-18-2022 14:43-0500 Respiratory rate 16 /min Julian NILL [facility] [place] 04-18-2022 14:43-0500 Systolic blood pressure 130 mm[Hg] Julian NILL [facility] [place] Encounters Encounter Date Encounter Type Care Provider Facility Start: 04-10-2023 End: 04-10-2023 ambulatory ROSSANA AICHMOISEZ Not Available Start: 03-01-2023 End: 03-01-2023 ambulatory CIERRA DRUMMOND Not Available Start: 02-26-2023 End: 02-26-2023 ambulatory ROSSANA AICHHOLZ Not Available Start: 06-07-2022 End: 06-08-2022 ambulatory CULINARY MANAGER ROSSANA AICHHOLZ Facility: Start: 05-31-2022 End: 06-01-2022 ambulatory Julian BONILLA Facility:[facility] Start: 05-31-2022 End: 05-31-2022 Patient encounter procedure [facility] Start: 05-24-2022 ambulatory Julian BONILLA Facility:[facility] Start: 05-17-2022 End: 05-18-2022 ambulatory Julian GARYL Facility:CD:[id number] Start: 04-18-2022 End: 04-19-2022 ambulatory Julian R NILL Facility:[facility] Start: 04-18-2022 End: 04-18-2022 Patient encounter procedure Julian Carrera NILL [facility] [place] Start: 03-28-2022 ambulatory Julian R NILL Facility :[facility] Start: 12-21-2021 End: 12-22-2021 ambulatory RON ALICIA Facility:[facility] Start: 09-01-2021 End: 09-01-2021 ambulatory RON ALICIA Facility:[facility] Start: 07-14-2021 End: 07-15-2021 ambulatory RON ALICIA Facility:[facility] Procedures Date Procedure Procedure Detail Performing Clinician Start: 05-17-2022 Colonoscopy Julian NILL Start: 05-17-2022 Esophagogastroduodenoscopy Julian NILL Start: 03-26-2013 Cholecystectomy Julian NILL Start: 02-22-2011 Colonoscopy Julian NILL Start: 03-26-1969 Tonsil and adenoid structure (body structure) Julian NILL Dilation and curettage Mark GARYL Esophagogastroduodenoscopy M ichael NILL Excision of lipoma Julian BENSON Oophorectomy Julian NILL Immunizations Immunization Date Immunization Notes Care Provider Fa cility 08-18-2021 SARS-CoV-2 mRNA (mneegvewnxt-okbr-hmswq se) vaccine Julian NILL [facility] [place] 01-10-2021 SARS-CoV-2 (COVID-19 ) mRNA BNT-162b2 vax Julian NILL [facility] [place] 12-14-2020 influenza virus vaccine, unspecified formulation Julian BONILLA [facility] [place] 06-18-2020 SARS-CoV-2 (COVID-19 ) mRNA BNT-162b2 vax Julian BONILLA [facility] 05-29-2020 SARS-CoV-2 (COVID-19 ) mRNA BNT-162w6 vax Julian BONILLA [facility] Comment on above: Result Comment: 2022: [id number] 12-30-2018 influenza virus vaccine, live, attenuated, for intranasal use Julian BONILLA [facility] Payers Date Payer Category Payer Private Health Insurance [id number] 1955 Unknown [id number] 2.16.8 [id number] 1955 Unknown [id number] 2.16.8 [id number] 1955 Unknown [id number] 2.16.8 [id number] 1955 Unknown [id number] 2.16.8 [id number] 1955 Unknown [id number] 2.16.84 [id number] 1955 Unknown [id number] 2.16.84 [id number] 1955 Unknown [id number] 2.16.84 [id number] 1955 Unknown [id number] 2.16.84 [id number] 1955 Unknown [id number] 2.16.84 [id number] 1955 Unknown [id number] 2.16.84 [id number] 1955 Unknown [id number] 2.16.840 .[id number] 1955 Unknown [id number] Social History Date Type Detail Facility Start: 04-18-2022 Tobacco smoking status Ex-smoker (fi nding) [facility] [place] Tobacco smoking status Never [facility] [place] Sex Assigned At Female [facility] Functional Status Date Assessment Result Facility 04-18-2022 Functional Status N/A [facility] [place] Clinical Note 05-17-2022 Note Date & Type Note Facility 05-17-2022 Note OPERATIVE NOTE OPERATION DATE: 05/17/2022 PREOPERATIVE DIAGNOSIS: Colorectal screening. POSTOPERATIVE DIAGNOSIS: Small polyps in the ascending and transverse colon. PROCEDURE: Colonoscopy to cecum with cold biopsy forceps polypectomy x2 for 3 mm ascending colon polyp and 2 mm transverse colon polyp. SURGEON: Julian Bonilla M.D. ANESTHESIA: Monitored anesthesia care. ESTIMATED BLOOD LOSS: Less than 1 mL. INDICATIONS AND CONSENT: Patient is a 67-year-old female who presents for colorectal screening. Indications, risks, benefits, alternatives of proceeding with colonoscopy were explained extensively to the patient, including the risks of bleeding, colon perforation or anesthetic complications. All of her questions were answered. Informed consent was obtained. PROCEDURE: Patient brought to the operating room, placed in the left lateral decubitus position. Monitored anesthesia care was provided. Rectal exam was performed which showed no masses or blood. The scope was inserted into the anal canal. Under direct visualization was advanced. It was advanced to the cecum where cecal markings were clearly identified. There was noted to be a good prep. Upon withdrawal of the scope, mucosal surfaces were carefully examined. There were no mass lesions or inflammatory changes. Within the ascending colon, there was noted to be a 3 mm sessile polyp that was removed with cold biopsy forceps with good hemostasis. Within the transverse colon, there was noted to be a 2 mm sessile polyp that was also removed with cold biopsy forceps with good hemostasis. There was no significant diverticular disease. The scope was retroflexed in the anal canal. There was noted to be a small internal/external hemorrhoid, as well as hypertrophic anal papilla. No evidence of bleeding. Scope was then withdrawn. Patient tolerated procedure well, was sent to recovery room in good condition. CC: Rossana Alicia CNP [facility] Clinical Note 04-18-2022 Note Date & Type Note Facility 04-18-2022 Note Chief Complaint consultation for screening colonoscopy HPI Staff 66 year old female presents on consultation from Rossana Alicia for screening colonoscopy. Per PCP, last colonoscopy was completed 01/2011 with tubular adenoma. History of Present Illness 66 yo female with h/o htn, DMII, hyperlipidemia, MERRILL, PVD, emphysema, asthma, referred for colorectal screening; denies change in bms or blood in stools; no abdominal complaints; denies asa or NSAID use, no SBE prophylaxis; abdominal operations significant for LS cholecystectomy and oophorectomy; fmhx of colon cancer in her maternal Uncle dx in his 50's, no fmhx of IBD; no tobacco use. Review of Systems PHQ Score Initial Depression Screen Score: 0 ROS - Provider Constitutional: no fever, no sweats, no weight loss. Eyes: yes glasses, no blurred vision, no visual loss. ENMT: no dentures, no hoarseness, no swallowing difficulties, no hearing loss, no ear infection(s), no nose bleeds. Cardiovascular: normal blood pressure, no chest pain, regular heartbeat, no heart murmur. Respiratory: no shortness of breath, no cough, no asthma, no wheezing. Gastrointestinal: no nausea, no vomiting, no diarrhea, no constipation, no blood in stool, no change in bowel habits, no abdominal pain, no hepatitis. Genitourinary: no kidney stones, no urine infection, no dysuria. Musculoskeletal: no pain, no weakness. Skin: no changing moles, no rash, no skin lumps. Neurologic: no seizures, no epilepsy, no headache. Psychiatric: no emotional or psychiatric problem. Heme/Lymph: no bleeding problems, no anemia, no blood clots, no transfusions. Allergy/Immunologic: no swollen lymph nodes/glands, no IV drug abuse. Other: Additional ROS info: Except as noted in the above Review of Systems and in the History of Present Illness, all other systems have been reviewed and are negative or noncontributory. Physical Exam Vitals & Measurements HR: 80(Peripheral) RR: 16 BP: 130/88 HT: 60 in HT: 152.4 cm WT: 102.5 kg WT: 225.5 lb BMI: 44.13 HEENT: normal conjunctiva, sclera clear, no scleral icterus, EOM intact, PERRLA, oral mucosa moist without lesions. Neck: trachea midline, no mass, symmetric, no thyromegaly or nodules, no adenopathy Respiratory: lungs CTA, respirations non labored. Cardiovascular: regular rate and rhythm, no murmur, no pedal edema or varicosities. Gastrointestinal: obese soft, non distended, no tenderness, no masses, no palpable hernias, diastasis recti no, no hepatosplenomegaly; normal bs Lymphatic: no cervical adenopathy, no supraclavicular adenopathy Musculoskeletal: normal gait, digits and nails without infection, nodes, cyanosis, clubbing. Skin: no rashes, no lesions, no ulcers, no subcutaneous nodules, induration. Psychiatric/Neuro: oriented to time, place, person, judgement normal, affect appropriate for age, insight intact, no focal deficits. Tests: , review of old records completed, Discussed surgical options, risks, and possible complications with patient. Assessment/Plan 1. Screening for malignant neoplasm of colon (Z12.11: Encounter for screening for malignant neoplasm of colon) plan colonoscopy under anesthesia, informed consent obtained. Follow-up No qualifying data available Problem List/Past Medical History Ongoing Abnormal liver function test Asthma Benign essential hypertension Diabetes mellitus Emphysema lung Hyperlipidemia Lower extremity edema Morbid obesity Persistent hoarseness PVD (peripheral vascular disease) Retinal artery occlusion Screening for malignant neoplasm of colon Sleep apnea Historical No qualifying data Procedure/Surgical History Cholecystectomy (2013), Colonoscopy (02/22/2011), Tonsils and adenoids (1969), Dilation and curettage, EGD - Esophagogastroduodenoscopy, Excision of lipoma, Oophorectomy. Medications aspirin 81 mg Oral EC Tab, Oral, Daily atorvastatin 80 mg Tab, 80 mg= 1 tab(s), Oral, Daily Breo Ellipta 100 mcg-25 mcg inhalation powder, 1 puff(s), Inhalation, Daily glucosamine, 1500 mg, Oral, Daily hydrochlorothiazide 25 mg oral tablet metformin 500 mg oral tablet Metoprolol tartrate 25 mg Tab, 25 mg= 1 tab(s), Oral, Daily Norvasc 2.5 mg Tab nystatin topical 100,000 units/g powder, Topical, TID ProAir HFA 90 mcg/inh inhalation aerosol, Inhalation, QID Trulicity Pen 0.75 mg/0.5 mL subcutaneous solution Allergies Ceclor (Breathing abnormal) Pneumovax 23 (SOB - Shortness of breath, Hives) penicillin (Hives, Breathing abnormal) Social History Alcohol - No Risk, 03/13/2019 1-2 times per year, 03/13/2019 Substance Abuse - Denies Substance Abuse, 03/13/2019 Tobacco - Denies Tobacco Use, 03/13/2019 Former smoker, quit more than 30 days ago Tobacco Use:. Never Smokeless Tobacco Use:. Cigarettes, 1 per day. Started age 16.0 Years. Stopped age 40 Years., 04/18/2022 Family History Diabetes mellitus type 2: Father and Brother. Hypertension: Father, Sister and Brother. Leukem (more content not included)... [facility] Comment on above: Result Comment: Elec tronically Signed By: FRANKLIN CORTEZ, Julian Smith\Date and Time Signed: 04/18/22 15:13 EST Evaluation + Plan note Note Date & Type Note Facility Evaluation + Plan note No data available for this section [facility] Discharge instructions Note Date & Type Note Facility Hospital Discharge instructions No data available for this section [facility] Progress note Note Date & Type Note Facility Progress note No data available for this section [facility] Summary Purpose Family History No Family History Records FoundNo Family History Records FoundNo Family History Records Found Advance Directives No Advanced Directives Records FoundNo Advanced Directives Records FoundNo Advanced Directives Records Found Additional Source Comments Patient Care team informatio n (unrecognized section and content) Personnel Name: ROSSANA ALICIA CNP Address: Address: [address] [place], [place] [id number] Personnel Name: ROSSANA ALICIA CNP Address: Address: [address] [place] [address] INFORMATION SOURCE (unrecogn ized section and content) DATE CREATED AUTHOR 06/01/2022 Shawn Gramajo [facility] DATE CREATED AUTHOR AUTHOR'S ORGANIZ ATION 06/16/2022 [facility] DATE CREATED AUTHOR AUTHOR'S ORGANIZ ATION 04/11/2023 [facility] FOR RECORDS PERTAINING TO PATIENTS WHO ARE OR HAVE BEEN ENROLLED IN A CHEMICAL DEPENDENCY/SUBSTANCEABUSE PROGRAM, SOME INFORMATION MAY BE OMITTED. This clinical summary was aggregated from multiple sources. Caution should be exercised in using it in the provision of clinical care. This summary normalizes information from multiple sources, and as a consequence, information in this document may materially change the coding, format and clinical context of patient data. In addition, data may be omitted in some cases. CLINICAL DECISIONS SHOULD BE BASED ON THE PRIMARY CLINICAL RECORDS. [facility] [employer] provides no warranty or guarantee of the accuracy or completeness of information in this document.
[2023-05-08 10:23] LABS: Estimated Average Glucose 232 mg/dL; Glycohemoglobin A1C 9.7 % (4.5-6.2)
== END 2023-05-08 09:28 | disposition home or self-care (01) ==
LOC: LAB 09:28
PROVIDERS: PCP Nurse Practitioner; Visit Provider Nurse Practitioner
DX: E11.9 Type 2 diabetes mellitus without complications (principal)
CPT/HCPCS: 36415; 83036

== ENCOUNTER 2023-06-29 13:28 | Outpatient (OUT) | payer MEDICARE, SELFPAY ==
--- NOTE | 2023-06-29 13:30 | MM_ITS ---
Patient Name: JAYE PIRES MR#: [id number] : 1955 Exam Date: 06/29/2023 Ordering Doctor: RON Alicia CNP RADIOLOGY REPORT PROCEDURE: MM TOMOSYNTHESIS SCREENING BI COMPARISON: MG MAMM SCREEN 3D JOSE CAD, 06/07/2022. MG MAMM SCREEN 3D JOSE CAD, 05/31/2021. INDICATIONS: screening Calculator Name NCI Breast Cancer Risk Assessment Tool 5 Year Breast Cancer Risk 5.90% Lifetime Breast Cancer Risk 18.00% Personal Breast Cancer No Personal Ovarian Cancer No Treatments None Family Cancers Sister with breast cancer at age 65; Mother with breast cancer at age 60; Brother with bladder cancer at age 63; Brother with skin cancer at age ~50; Father with skin cancer at age ~60. LOCATION: [facility] BREAST COMPOSITION: Scattered areas fibroglandular density. FINDINGS: DIAGNOSTIC CATEGORY 1--NEGATIVE. RIGHT BREAST: No significant suspicious finding. No significant change has occurred. LEFT BREAST: No significant suspicious finding. No significant change has occurred. RECOMMENDATIONS: ROUTINE MAMMOGRAM AND CLINICAL EVALUATION IN 12 MONTHS. PLEASE NOTE: A NORMAL MAMMOGRAM DOES NOT EXCLUDE THE POSSIBILITY OF BREAST CANCER. A CLINICALLY SUSPICIOUS PALPABLE LUMP SHOULD BE BIOPSIED. Dictated by: Misha Nixon M.D. on 06/29/2023 at 14:29 Approved by: Misha Nixon M.D. on 06/29/2023 at 14:32
--- OUTSIDE RECORDS SUMMARY | 2023-06-29 13:52 | XMS_ITS | CCD ---
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 Name Role Phone ROSSANA ALICIA Primary Care Physician Julian BONILLA Attending Unavailable NILLJulian Attending Unavailable AICHHOLZ, ROSSANA J Referring Unavailable NILLJulian Attending Unavailable NILLJulian Attending Unavailable AICHHOLZ, ROSSANA J Referring Unavailable AICHHOLZ, IRB COMPLIANCE COORDINATOR ROSSANA Admitting Unavailable AICHHOLZ, IRB COMPLIANCE COORDINATOR ROSSANA Attending Unavailable AICHHOLZ, IRB COMPLIANCE COORDINATOR ROSSANA Consulting Unavailable AICHHOLZ, IRB COMPLIANCE COORDINATOR ROSSANA Primary Care Unavailable NILL ., DR GUERRA Attending Unavailable NILL ., DR GUERRA Consulting Unavailable NILL ., DR GUERRA Admitting Unavailable AICHHOLZ, IRB COMPLIANCE COORDINATOR ROSSANA Primary Care Unavailable GURPREET II, PHILIP Consulting Unavailable CIERRA MAGANA Consulting Unavailable AICHHOLZ, IRB COMPLIANCE COORDINATOR ROSSANA Admitting Unavailable AICHHOLZ, IRB COMPLIANCE COORDINATOR RSOSANA Attending Unavailable AICHHOLZ, IRB COMPLIANCE COORDINATOR ROSSANA Consulting Unavailable AICHHOLZ, IRB COMPLIANCE COORDINATOR ROSSANA Primary Care Unavailable AICHHOLZ, IRB COMPLIANCE COORDINATOR ROSSANA Primary Care Unavailable AICHHOLZ, IRB COMPLIANCE COORDINATOR ROSSANA Admitting Unavailable AICHHOLZ, IRB COMPLIANCE COORDINATOR ROSSANA Attending Unavailable AICHHOLZ, IRB COMPLIANCE COORDINATOR ROSSANA Consulting Unavailable AICHHOLZ, IRB COMPLIANCE COORDINATOR ROSSANA Primary Care Unavailable BOBBY, DR RUDDY Nguyen Consulting Unavailable AICHHOLZ, IRB COMPLIANCE COORDINATOR ROSSANA Admitting Unavailable AICHHOLZ, IRB COMPLIANCE COORDINATOR ROSSANA Attending Unavailable AICHHOLZ, IRB COMPLIANCE COORDINATOR ROSSANA Consulting Unavailable AICHHOLZ, ROSSANA Attending Unavailable AICHHOLZ, ROSSANA Attending Unavailable CIERRA DRUMMOND Attending Unavailable Kuldip Cisneros MD Primary Care Provider Allergies Allergy Classification Reported Allergen(s) Allergy Type Date of Onset Reaction(s) Facility (4 sources) Cefaclor; Translations: [cefaclor] Drug Allergy 9 Abnormal breathing (finding), Hives, Shortness of breath [facility] (3 sources) Penicillin; Translations: [penicillin] Drug Allergy Weal (disorder), Abnormal breathing (finding) [facility] (3 sources) Streptococcus pneumoniae type [...] vaccine] Drug Allergy Dyspnea (finding), Weal (disorder) [facility] [place] (1 source) Cefaclor Drug Allergy 4 [facility] (1 source) Penicillins Drug allergy (disorder) 4 [facility] (1 source) Pneumovax 23 Drug allergy (disorder) 4 [facility] (1 source) Penicillins Drug Allergy 3 Hives, Shortness of breath [facility] (1 source) Pneumococcal vaccine Drug Allergy 3 Hives, Shortness of breath [facility] Medications Current Medications Medication Drug Class(es) Dates Sig (Normalized) Sig (Original) [id number] 200 actuat albuterol 0.09 mg/actuat metered dose inhaler (1 source) beta2-Adrenergic Agonist Start: 03-05-2023 End: 06-03-2023 take 2 puff(s) by inhalation every six hours for wheezing albuterol HFA 90 mcg/act inhaler Indications: Moderate persistent asthma without complication (CMS/HCC) Inhale 2 puffs every 6 (six) hours if needed for wheezing 18 g 1 03/05/2023 06/03/2023 Active amLODIPine 2.5 mg oral tablet (3 sources) Dihydropyridine Calcium Channel Miriam Start: 02-26-2023 End: 05-27-2023 take 1 tablet by mouth in the morning amLODIPine (Norvasc) 2.5 MG tablet Indications: Primary hypertension (CMS/HCC) Take 1 tablet (2.5 mg) by mouth in the morning. Take by mouth Daily.. 90 tablet 1 02/26/2023 05/27/2023 Active Start: 03-13-2019 Norvasc 2.5 mg Tab Refills(s) 0 Start Date: 03/13/19 Status: Ordered aspirin 81 mg delayed release oral tablet (3 sources) Platelet Aggregation Inhibitor, Nonsteroidal Anti-inflammatory Drug Start: 02-26-2023 End: 05-27-2023 take 1 tablet by mouth in the morning aspirin 81 MG EC tablet Indications: Type 2 diabetes mellitus without complication, without long-term current use of insulin (CMS/HCC) Take 1 tablet (81 mg) by mouth in the morning. 90 tablet 1 02/26/2023 05/27/2023 Active Start: 08-15-2018 take 1 mg by mouth once daily aspirin 81 mg Oral EC Tab mg tab(s), Oral, Daily, Refills(s) 0 Start Date: 08/15/18 Status: Ordered atorvastatin 80 mg oral tablet (3 sources) HMG-CoA Reductase Inhibitor Start: 02-26-2023 End: 05-27-2023 take 1 tablet by mouth in the morning atorvastatin (Lipitor) 80 MG tablet Indications: Type 2 diabetes mellitus without complication, without long-term current use of insulin (CMS/HCC) , Mixed hyperlipidemia (CMS/HCC) Take 1 tablet (80 mg) by mouth in the morning. 90 tablet 1 02/26/2023 05/27/2023 Active Start: 04-18-2022 take 1 tablet by nancy th once daily atorvastatin 80 mg Tab 80 mg = 1 tab(s), Oral, Daily, Refills(s) 0 Start Date: 04/18/22 Status: Ordered cetirizine hydrochloride 10 mg oral tablet (1 source) Histamine-1 Receptor Antagonist Start: 02-26-2023 End: 05-27-2023 take 1 tablet by mouth in the morning cetirizine (ZyrTEC) 10 MG tablet Indications: Environmental and seasonal allergies Take 1 tablet (10 mg) by mouth in the morning. 90 tablet 1 02/26/2023 05/27/2023 Active chondroitin sulfates 400 mg / glucosamine sulfate 500 mg oral tablet (1 source) take 1 tablet by mouth in the morning, then take 1 tablet by mouth in the evening, then take 1 tablet by mouth at bedtime glucosamine-chondr oitin 500-400 MG tablet Take 1 tablet by mouth in the morning and 1 tablet in the evening and 1 tablet before bedtime. 0 Active 0.5 ml dulaglutide 1.5 mg/ml auto-injector (2 sources) GLP-1 Receptor Agonist Start: 03-13-2019 Trulicity Pen 0.75 mg/0.5 mL subcutaneous solution Refills(s) 0 Start Date: 03/13/19 Status: Ordered dulaglutide (Trulicity) 3 MG/0.5ML solution pen-injector (1 source) Start: 02-26-2023 End: 05-21-2023 inject 3 mg by subcutaneous injection every week dulaglutide (Trulicity) 3 MG/0.5ML solution pen-injector Indications: Type 2 diabetes mellitus without complication, without long-term current use of insulin (CMS/HCC) Inject 3 mg under the skin 1 (one) time per week 12 each 1 02/26/2023 05/21/2023 Active 30 actuat fluticasone furoate 0.2 mg/actuat / vilanterol 0.025 mg/actuat dry powder inhaler (3 sources) Corticosteroid, beta2-Adrenergic Agonist Start: 02-26-2023 End: 05-27-2023 take 1 puff(s) by inhalation in the morning Fluticasone Furoate-Vilanterol (Breo Ellipta) 200-25 MCG/ACT aerosol powder Indications: Moderate persistent asthma without complication (CMS/HCC) Inhale 1 puff in the morning. 90 each 1 02/26/2023 05/27/2023 Active Start: 08-15-2018 take 1 [IU] by inhal ation once daily Breo Ellipta 100 mcg-25 mcg inhalation powder 1 puff(s), Inhalation, Daily, 1 unit(s), Refill(s) 2, 30 dose unit Start Date: 08/15/18 Status: Ordered glucosamine hydrochloride 1500 mg oral tablet (2 sources) Start: 08-15-2018 take 1500 mg by mouth once daily glucosamine 1,500 mg, Oral, Daily, Refills(s) 0 Start Date: 08/15/18 Status: Ordered hydroCHLOROthiazide 25 mg oral tablet (3 sources) Thiazide Diuretic Start: 02-26-2023 End: 05-27-2023 take 1 tablet by mouth in the morning hydroCHLOROthiazide (HYDRODiuril) 25 MG tablet Indications: Primary hypertension (CMS/HCC) Take 1 tablet (25 mg) by mouth in the morning. 90 tablet 1 02/26/2023 05/27/2023 Active Start: 03-13-2019 hydrochlorothi azide 25 mg oral tablet Refills(s) 0 Start Date: 03/13/19 Status: Ordered metFORMIN hydrochloride 500 mg oral tablet (3 sources) Biguanide Start: 02-26-2023 End: 05-27-2023 take 1 tablet by mouth in the morning metFORMIN (Glucophage) 500 MG tablet Indications: Type 2 diabetes mellitus without complication, without long-term current use of insulin (CMS/HCC) Take 1 tablet (500 mg) by mouth in the morning and 1 tablet (500 mg) in the evening. Take with meals. 180 tablet 1 02/26/2023 05/27/2023 Active Start: 03-13-2019 metformin 500 mg oral tablet Refills(s) 0 Start Date: 03/13/19 Status: Ordered metoprolol tartrate 50 mg oral tablet (3 sources) beta-Adrenergic Miriam Start: 02-26-2023 End: 05-27-2023 take 1 tablet by mouth in the morning metoprolol tartrate (Lopressor) 50 MG tablet Indications: Primary hypertension (CMS/HCC) Take 1 tablet (50 mg) by mouth in the morning and 1 tablet (50 mg) before bedtime. 180 tablet 1 02/26/2023 05/27/2023 Active Start: 08-15-2018 take 1 tablet by nancy th once daily Metoprolol tartrate 25 mg Tab 25 mg = 1 tab(s), Oral, Daily, # 30 tab(s), Refills(s) 0 Start Date: 08/15/18 Status: Ordered nystatin 100 unt/mg topical powder (1 source) Polyene Antifungal Start: 12-12-2022 Nyamyc [id number] UNIT/GM powder Apply 1 application topically in the morning and 1 application before bedtime. to affected area. 0 12/12/2022 Active nystatin topical 100,000 units/g powder (2 sources) Start: 08-15-2018 nystatin topical 100,000 units/g powder danny, Topical, TID, Refill(s) 0 Start Date: 08/15/18 Status: Ordered omeprazole 20 mg delayed release oral capsule (1 source) Proton Pump Inhibitor Start: 02-26-2023 End: 05-27-2023 take 1 capsule by mouth before mealtime omeprazole (PriLOSEC) [address] capsule Indications: Gastroesophageal reflux disease, unspecified whether esophagitis present Take 1 capsule (20 mg) by mouth in the morning. Take before meals. 90 capsule 1 02/26/2023 05/27/2023 Active ProAir HFA 90 mcg/inh inhalation aerosol (2 sources) Start: 08-15-2018 take 1 puff(s) by inhalation four times daily ProAir HFA 90 mcg/inh inhalation aerosol puff(s), Inhalation, QID, Refill(s) 0 Start Date: 08/15/18 Status: Ordered sertraline 50 mg oral tablet (1 source) Serotonin Reuptake Inhibitor Start: 04-10-2023 End: 05-10-2023 sertraline (Zoloft) 50 MG tablet Indications: Current mild episode of major depressive disorder without prior episode (HCC) (CMS/HCC) Take 1 tablet (50 mg) by mouth in the morning. Start with 1/2 pill daily for 7 days, then increase to 1 pill. 30 tablet 1 04/10/2023 05/10/2023 Active Problems Active Problems Problem Classification Problem Date Documented Da te Episodic/Chronic Asthma (3 sources) Asthma; Translations: [Moderate asthma] Onset: 02-26-2023 03-13-2019 Chronic Chronic obstructive pulmonary disease and bronchiectasis (5 sources) Pulmonary emphysema; Translations: [Emphysema, unspecified] Onset: 12-23-2021 03-13-2019 Chronic Diabetes mellitus with complications (1 source) Type 2 diabetes mellitus with diabetic peripheral angiopathy without gangrene; Translations: [TYPE 2 DM DIAB P ANGIOPATH NO GNGRN] Onset: 05-23-2022 Chronic Diabetes mellitus without complication (7 sources) Diabetes mellitus; Translations: [Type 2 diabetes mellitus without complications] Onset: 12-21-2021 03-13-2019 Chronic Disorders of lipid metabolism (4 sources) Hyperlipidemia; Translations: [Hyperlipidemia, unspecified] Onset: 05-23-2022 04-14-2022 Chronic Essential hypertension (5 sources) Benign essential hypertension; Translations: [Essential (primary) hypertension] Onset: 05-23-2022 08-15-2018 Chronic Mood disorders (1 source) Mild major depression, single episode; Translations: [Major depressive disorder, single episode, mild] Onset: 04-10-2023 04-10-2023 Chronic Other aftercare (1 source) 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; Translations: [SKILLED NURSING CURRENT USE OF ASPIRIN] Onset: 05-23-2022 Episodic Other aftercare (1 source) tank terminal gauger (current) use of oral hypoglycemic drugs; Translations: [SKILLED NURSING USE ORAL HYPOGLYCEMIC DX] Onset: 05-23-2022 Episodic [...] BMI 40.0-44.9 ADULT] Onset: 05-23-2022 Chronic Other nutritional; endocrine; and metabolic disorders (1 source) Severe obesity; Translations: [Morbid (severe) obesity due to excess calories] Onset: 02-26-2023 02-26-2023 Chronic Other nutritional; endocrine; and metabolic disorders (1 source) Body mass index 40+ - severely obese; Translations: [Body mass index (BMI) 40.0-44.9, adult] Onset: 04-10-2023 04-10-2023 Chronic Other screening for suspected conditions (not mental disorders or infectious disease) (12 sources) Screening for malignant neoplasm of colon done; Translations: [Encounter for screening for malignant neoplasm of colon] Onset: 04-18-2022 Episodic Other upper respiratory disease (1 source) Allergic disposition; Translations: [Other allergic rhinitis] Onset: 02-26-2023 02-26-2023 Chronic Other upper respiratory disease (2 sources) Hoarse 04-14-2022 Episodic Peripheral and visceral atherosclerosis (2 sources) Peripheral vascular disease 04-14-2022 Chronic Residual codes; unclassified (3 sources) Sleep apnea; Translations: [Sleep apnea, unspecified] Onset: 04-10-2023 04-14-2022 Chronic Residual codes; unclassified (1 source) [...] Classification Problem Date Documented Da te Episodic/Chronic Mood disorders (1 source) Mood disorders Onset: 04-10-2023 04-10-2023 Unclassified (1 source) CONTACT W/AND (SUSP) EXPOS COVID-19; Translations: [CONTACT W/AND (SUSP) EXPOS COVID-19] Onset: 09-01-2021 Results Test Name Value Interpretation Reference Range Facility [facility] HEMOGLOBIN A1Con 024 Glucose [Mass/Vol] 232 mg/dL [facility] HbA1c (Bld) [Mass fraction] 9.7 % High 4.5 - 6.2 % [facility] Comment on above: ADA RECOMMENDED LIMI T 4.0 - 6.0 ADA THERAPEUTIC TARGET < 7.0 ACTION SUGGESTED > 7.0 Interpretation and review of laboratory results Abnormal [facility] MG MAMM SCREEN 3D JOSE CADon 06-07-2022 MG MAMM SCREEN 3D JOSE CAD Patient: JAYE BEAVERS Exam Date: 06/07/2022 : 1955 Gender:F Ordering : [facility] Admission #: [id number] Family : Order #: [id number] CLICK HERE TO VIEW EXAM RADIOLOGY REPORT [...] skin cancer at age 60. LOCATION: [facility] BREAST COMPOSITION: Scattered areas fibroglandular density. FINDINGS: [...] LUMP SHOULD BE BIOPSIED. Dictated by: Ruddy Deleon MD on 06/07/2022 at 13:31 Approved by: Ruddy Deleon MD on 06/07/2022 at 13:35 Normal [facility] Ambulatory Visit Summaryon 0 05-31-2022 Ambulatory Visit Summary JAYE BEAVERS :1955 Visit Date:05/31/2022 Ambulatory Visit Instructions Your Diagnosis Benign neoplasm of ascending colon Benign neoplasm of transverse colon Your Care Team Attending Physician - Julian BONILLA MD Primary Care Physician - ROSSANA ALICIA CNP [...] of colon Tubular adenoma of colon Normal [facility] General Surgery Office/Clini c Noteon 05-31-2022 [...] Sister. Immunizations Vaccine Date Status Comments SARSCoV2 mRNA(qfsawsxri-zint-dmuwkh) vac 08/18/2021 Recorded SARS-CoV-2 (COVID-19) mRNA BNT-162b2 vax 01/10/2021 Recorded influenza virus vaccine, inactivated 12/14/2020 Recorded SARS-CoV-2 (COVID-19) mRNA BNT-162b2 vax 06/18/2020 Recorded SARS-CoV-2 (COVID-19) mRNA BNT-162b2 vax 05/29/2020 Recorded 2022-04-18: TPV65 influenza virus vaccine, live, trivalent 12/30/[address] [facility] Comment on above: Result Comment: Elec tronically Signed By: FRANKLIN CORTEZ, Julian Smith\Date and Time Signed: 05/31/22 14:36 EST Reminderson 05-31-2022 Reminders - From: Billie Curtis LPN To: MICHAELN - Clinical; Sent: 05/31/2022 16:01:22 EST Show up: 04/16/2027 07:00:00 EST Subject: colonoscopy recall Due Date/Time: 05/17/2027 07:00:00 EST Reminder/Recall Patient is due for colonoscopy 05/17/27 due to history of colonic polyps. Normal [facility] Pathology Noteon 05-19-2022 Pathology Note [id number]#1.00CD:[address] [facility] Outside Colonoscopyon 2022 Outside Colonoscopy [id number]#1.00CD:[address] [facility] POINT OF CARE GLUCOSEon 04-27 Glucose [Mass/Vol] 176 mg/dL Critically high 74-106 [facility] Comment on above: Performed By: #### P OCGLUC ####[facility] [address] [place], [place] [address]DoDr. Aga Estrella Pre-Certification Formon Pre-Certification Form [id number]#1.00CD:[address] [facility] Facesheeton 04-20-2022 Facesheet [id number]#1.00CD:[address] [facility] Consent for Procedure/Surger yon 04-19-2022 Consent for Procedure/Surgery [id number]#1.00CD:[address] [facility] Physician Referralon 023 Physician Referral [id number]#1.00CD:[address] [facility] Physician Referralon 023 Physician Referral [id number]#1.00CD:[address] [facility] MICROALBUMIN URINEon 022 Albumin, Urine <3.0 Normal Not Estab. [facility] Comment on above: Result Comment: Ve rified by repeat analysis Performed By: #### M ALBLC #### [facility] [address] [place], [place] [address] Dr. Aga Estrella CBC AUTO DIFFon 12-21-2021 BASO # 0.0 103/ul Normal 0.0-0.1 [facility] Comment on above: Performed By: #### C BC #### [facility] Laboratory [address] [place] [address] Dr. Aga Estrella Basophils/100 WBC (Bld) 0.4 % Normal 0.2-2.0 [facility] Comment on above: Performed By: #### C BC #### [facility] Laboratory [address] [place] [address] Dr. Aga Estrella EO # 0.1 103/ul Normal 0.0-0.7 [facility] Comment on above: Performed By: #### C BC #### [facility] Laboratory [address] [place] [address] Dr. Aga Estrella Eosinophils/100 WBC (Bld) 1.6 % Normal 0.9-7.0 [facility] Comment on above: Performed By: #### C BC #### [facility] Laboratory [address] [place] [address] Dr. Aga Estrella Erythrocyte distribution width (RBC) [Ratio] 14.2 % Normal 11.0-15.0 [facility] Comment on above: Performed By: #### C BC #### [facility] Laboratory [address] [place] [address] Dr. Aga Estrella Hematocrit (Bld) [Volume fraction] 42.1 % Normal 36.0-48.0 [facility] Comment on above: Performed By: #### C BC #### [facility] Laboratory [address] [place] [address] Dr. Aga Estrella Hemoglobin (Bld) [Mass/Vol] 13.1 g/dL Normal 12.0-16.0 [facility] Comment on above: Performed By: #### C BC #### [facility] Laboratory [address] [place] [address] Dr. Aga Estrella IG # 0.02 10e3/ul Normal 0.00-0.03 [facility] Comment on above: Performed By: #### C BC #### [facility] Laboratory [address] [place] [address] Dr. Aga Estrella IG % 0.4 % Normal 0.0-0.5 [facility] Comment on above: Performed By: #### C BC #### [facility] Laboratory [address] [place] [address] Dr. Aga Estrella LYMPH # 1.7 103/ul Normal 1.2-3.8 [facility] Comment on above: Performed By: #### C BC #### [facility] Laboratory [address] [place] [address] Dr. Aga Estrella Lymphocytes/100 WBC (Bld) 29.4 % Normal 20.5-60.0 [facility] Comment on above: Performed By: #### C BC #### [facility] Laboratory [address] [place] [address] Dr. Aga Estrella MANUAL DIFF REQ NO Normal [facility] Comment on above: Performed By: #### C BC #### [facility] Laboratory [address] [place] [address] Dr. Aga Estrella MCH (RBC) [Entitic mass] 28.8 pg Normal 26.7-34.0 [facility] Comment on above: Performed By: #### C BC #### [facility] [address] [place] [address] Dr. Aga Estrella MCHC (RBC) [Mass/Vol] 31.1 g/dL Normal 29.9-35.2 [facility] Comment on above: Performed By: #### C BC #### [facility] Laboratory [address] [place] [address] Dr. Aga Estrella MCV (RBC) [Entitic vol] 92.5 fL Normal 81.0-99.0 [facility] Comment on above: Performed By: #### C BC #### [facility] Laboratory [address] [place] [address] Dr. Aga Estrella MONO # 0.4 103/ul Normal 0.3-0.8 [facility] Comment on above: Performed By: #### C BC #### [facility] Laboratory [address] [place] [address] Dr. Aga Estrella Monocytes/100 WBC (Bld) 6.4 % Normal 1.7-12.0 [facility] Comment on above: Performed By: #### C BC #### [facility] Laboratory [address] [place] [address] [address] Aga Estrella NEUT # 3.5 103/ul Normal 1.4-6.5 [facility] Comment on above: Performed By: #### C BC #### [facility] [address] [place] [address] [address] Aga Estrella Neutrophils/100 WBC (Bld) 61.8 % Normal 43.0-75.0 [facility] Comment on above: Performed By: #### C BC #### [facility] [address] [place] [address] [address] Aga Estrella Platelet mean volume (Bld) [Entitic vol] 10.2 fL Normal 9.5-13.5 [facility] Comment on above: Performed By: #### C BC #### [facility] Laboratory [address] [place] [address] Dr. Aga Estrella PLT 195 103/ul Normal 150-450 [facility] Comment on above: Performed By: #### C BC #### [facility] [address] [place] [address] Dr. Aga Estrella RBC 4.55 106/ul Normal 4.20-5.40 [facility] Comment on above: Performed By: #### C BC #### [facility] [address] [place] [address] [address] Aga Estrella WBC 5.7 103/ul Normal 4.0-11.0 [facility] Comment on above: Performed By: #### C BC #### [facility] [address] [place] [address] Dr. Aga Estrella GLYCOHEMOGLOBIN A1Con 2021 ADA RECOMMENDATION SEE BELOW Normal [facility] Comment on above: Result Comment: ADA RECOMMENDED LIMIT 4.0 - 6.0 ADA THERAPEUTIC TARGET < 7.0 ACTION SUGGESTED > 7.0 Performed By: #### A 1C #### [facility] [address] [place] [address] Dr. Aga Estrella Glucose [Mass/Vol] 192 mg/dL Normal [facility] Comment on above: Performed By: #### A 1C #### [facility] [address] [place] [address] [address] Aga Estrella HbA1c (Bld) [Mass fraction] 8.3 % Critically high 4.5-6.2 [facility] Comment on above: Performed By: #### A 1C #### [facility] Laboratory [address] [place] [address] [address] Aga Estrella LIPID PROFILEon 12-21-2021 CHOL-HDL RATIO NORM SEE BELOW Normal [facility] Comment on above: Result Comment: 3.3 - 4.4 LOW RISK 4.4 - 7.1 AVERAGE RISK 7.1 - 11.0 MODERATE RISK >11.0 HIGH RISK Performed By: #### L IPID, CMP #### [facility] Laboratory [address] [place] [address] Dr. Aga Estrella Cholesterol [Mass/Vol] 123 mg/dL Normal <=200 [facility] Comment on above: Performed By: #### L IPID, CMP #### [facility] [address] [place] [address] Dr. Aga Estrella Cholesterol in HDL [Mass/Vol] 51 mg/dL Normal 40-60 [facility] Comment on above: Performed By: #### L IPID, CMP #### [facility] [address] [place] [address] Dr. Aga Estrella Cholesterol in LDL [Mass/Vol] 45.8 mg/dL Normal The [facility] Comment on above: Performed By: #### L IPID, CMP #### [facility] Laboratory [address] [address] [address] Aga Estrella Cholesterol.total/ Cholesterol in HDL [Mass ratio] 2.4 {ratio} Normal The [facility] Comment on above: Performed By: #### L IPID, CMP #### [facility] [address] [place] [address] Dr. Aga Estrella HDL NORMAL > or = 60 mg/dl - LO W CARDIOVASCULAR RISK <40 mg/dl - HIGH CARDIOVASCULAR RISK Normal [facility] Comment on above: Performed By: #### L IPID, CMP #### [facility] [address] [place] [address] Dr. Aga Estrella LDL CALC NORMAL SEE BELOW Normal [facility] Comment on above: Result Comment: <100 mg/dl OPTIMAL 100 - 129 mg/dl NEAR OR ABOVE OPTIMAL 130 - 159 mg/dl BORDERLINE HIGH 160 - 189 mg/dl HIGH >190 mg/dl VERY HIGH Performed By: #### L IPID, CMP #### [facility] [address] [address] [address] Aga Estrella Triglyceride [Mass/Vol] 131 mg/dL Normal <=150 [facility] Comment on above: Performed By: #### L IPID, CMP #### [facility] [address] [address] [address] Aga Estrella VLDL CALC 26.2 mg/dL Normal [facility] Comment on above: Performed By: #### L IPID, CMP #### [facility] [address] [address] [address] Aga Estrella PROF 14(COMP METB)on 022 Albumin [Mass/Vol] 3.5 g/dL Normal 3.4-5.0 [facility] Comment on above: Performed By: #### L IPID, CMP #### [facility] [address] [address] [address] Aga Estrella Albumin/Globulin [Mass ratio] 1.0 {ratio} Normal [facility] Comment on above: Performed By: #### L IPID, CMP #### [facility] [address] [address] [address] Aga Estrella ALP [Catalytic activity/Vol] 147 U/L Critically high 46-116 [facility] Comment on above: Performed By: #### L IPID, CMP #### [facility] [address] [address] [address] Aga Estrella ALT [Catalytic activity/Vol] 42 U/L Normal 14-59 [facility] Comment on above: Performed By: #### L IPID, CMP #### [facility] [address] [address] [address] Aga Estrella Anion gap [Moles/Vol] 12.2 mmol/L Normal [facility] Comment on above: Performed By: #### L IPID, CMP #### [facility] [address] [address] [address] Aga Estrella AST [Catalytic activity/Vol] 32 U/L Normal 15-37 [facility] Comment on above: Performed By: #### L IPID, CMP #### [facility] [address] [address] [address] Aga Estrella Bilirubin [Mass/Vol] 0.3 mg/dL Normal 0.2-1.0 [facility] Comment on above: Performed By: #### L IPID, CMP #### [facility] [address] [address] [address] Aga Estrella Calcium [Mass/Vol] 9.1 mg/dL Normal 8.5-10.1 [facility] Comment on above: Performed By: #### L IPID, CMP #### [facility] [address] [place] [address] Dr. Aga Estrella Chloride [Moles/Vol] 103 mmol/L Normal 98-107 [facility] Comment on above: Performed By: #### L IPID, CMP #### [facility] [address] [place] [address] Dr. Aga Estrella CO2 [Moles/Vol] 29.9 mmol/L Normal 21.0-32.0 [facility] Comment on above: Performed By: #### L IPID, CMP #### [facility] [address] [place] [address] Dr. Aga Estrella Creatinine [Mass/Vol] 0.65 mg/dL Normal 0.55-1.02 [facility] Comment on above: Performed By: #### L IPID, CMP #### [facility] [address] [place] [address] Dr. Aga Estrella EGFR-AF SENEGALESE >60 Normal >=60 [facility] Comment on above: Performed By: #### L IPID, CMP #### [facility] [address] [place] [address] Dr. Aga Estrella EGFR-NON AF SENEGALESE >60 Normal >=60 [facility] Comment on above: Performed By: #### L IPID, CMP #### [facility] [address] [address] [address] Aga Estrella Globulin (S) [Mass/Vol] 3.6 g/dL Normal [facility] Comment on above: Performed By: #### L IPID, CMP #### [facility] [address] [address] [address] Aga Estrella Glucose [Mass/Vol] 156 mg/dL Critically high 74-106 [facility] Comment on above: Performed By: #### L IPID, CMP #### [facility] [address] [place] [address] Dr. Aga Estrella Potassium [Moles/Vol] 4.1 mmol/L Normal 3.5-5.1 [facility] Comment on above: Performed By: #### L IPID, CMP #### [facility] [address] [place] [address] Dr. Aga Estrella Protein [Mass/Vol] 7.1 g/dL Normal 6.4-8.2 [facility] Comment on above: Performed By: #### L IPID, CMP #### [facility] [address] [place] [address] Dr. Aga Estrella Sodium [Moles/Vol] 141 mmol/L Normal 136-145 [facility] Comment on above: Performed By: #### L IPID, CMP #### [facility] [address] [place] [address] Dr. Aga Estrella Urea nitrogen [Mass/Vol] 13.0 mg/dL Normal 7.0-18.0 [facility] Comment on above: Performed By: #### L IPID, CMP #### [facility] [address] [place] [address] Dr. Aga Estrella Urea nitrogen/Creatinin e [Mass ratio] 20.0 mg/mg Normal [facility] Comment on above: Performed By: #### L IPID, CMP #### [facility] [address] [place] [address] Dr. Aga Estrella UA RANDOM W/MICROSCOPICon BACTERIA NONE SEEN Normal NONE SEEN The [facility] Comment on above: Performed By: #### U AMIC ####[facility] [address] [address] Juhichristian Estrella Bilirubin Ql (U) Negative Normal NEGATIVE [facility] Comment on above: Performed By: #### U AMIC ####[facility] [address] [address]Dr. Aga Estrella CAST NONE SEEN Normal NONE SEEN The [facility] Comment on above: Performed By: #### U AMIC ####[facility] [address] [address]Dr. Aga Estrella Clarity (U) CLEAR Normal CLEAR The [facility] Comment on above: Performed By: #### U AMIC ####[facility] [address] [place], [place] [address]Dr. Aga Estrella Color (U) LT. YELLOW Normal YELLOW The [facility] Comment on above: Performed By: #### U AMIC ####[facility] [address] [place], [place] [address]Dr. Juhichristian Sameer Crystals LM Nom (Urine sed) NONE SEEN Normal NONE SEEN The [facility] Comment on above: Performed By: #### U AMIC ####[facility] [address] [place], [place] [address]Dr. Aga Estrella Epithelial cells LM Ql (Urine sed) RARE Normal NONE SEEN /RARE The [facility] Comment on above: Performed By: #### U AMIC ####[facility] [address] [place], [place] [address]Dr. Aga Estrella Glucose Ql (U) Negative Normal NEGATIVE [facility] Comment on above: Performed By: #### U AMIC ####[facility] [address] [place], [place] [address]Dr. Aga Estrella Hemoglobin Ql (U) Negative Normal NEGATIVE [facility] Comment on above: Performed By: #### U AMIC ####[facility] [address] [place], [place] [address]Dr. Aga Estrella Ketones Ql (U) Negative Normal NEGATIVE [facility] Comment on above: Performed By: #### U AMIC ####[facility] [address] [address]Dr. Aga Estrella LEUKOCYTES Negative Normal NEGATIVE The [facility] Comment on above: Performed By: #### U AMIC ####[facility] [address] [address]Dr. Aga Estrella MUCOUS NONE SEEN Normal NONE SEEN The [facility] Comment on above: Performed By: #### U AMIC ####[facility] [address] [place], [place] [address]Dr. Aga Estrella Nitrite Ql (U) Negative Normal NEGATIVE [facility] Comment on above: Performed By: #### U AMIC ####[facility] [address] [place], [place] [address]Dr. Aga Estrella pH (U) 6.0 [pH] Normal 5-9 [facility] Comment on above: Performed By: #### U AMIC ####[facility] [address] [place], [place] [address]Dr. Aga Sameer RBC NONE SEEN Abnormal 0-2 The [facility] Comment on above: Performed By: #### U AMIC ####[facility] [address] [place], [place] [address]Dr. Aga Sameer SPEC GRAVITY 1.015 Normal 1.005-<=1.0 25 The [facility] Comment on above: Performed By: #### U AMIC ####[facility] [address] [place], [place] [address]Dr. Aga Estrella UA PROTEIN Negative Normal NEGATIVE/ TRACE The [facility] Comment on above: Performed By: #### U AMIC ####[facility] [address] [place], [place] [address]Dr. Aga Estrella Urobilinogen Qn (U) 0.2 {Kiya'U}/dL Normal 0.2 - 1.0 The [facility] Comment on above: Performed By: #### U AMIC ####[facility] [address] [place], [place] [address]Dr. Aga Estrella WBC 0-2 Abnormal NONE SEEN The [facility] Comment on above: Performed By: #### U AMIC ####[facility] [address] [place], [place] [address]Dr. Aga Estrella Covid-19 PCR ([facility])on SARS-CoV-2 (COVID-19) RNA JOSE+probe Ql (Unsp spec) Not detected Normal NOT DETECTED The [facility] Comment on above: Result Comment: This test is not yet approved or cleared by the [place] FDA. When there are no FDA-approved or cleared tests available, and other criteria are met, FDA can make tests available under an emergency access mechanism called an Emergency Use Authorization (EUA). The EUA for this test is supported by the [employer] of Health and Human Service's (HHS's) declaration [...] consistent with SARS-CoV-2. Performed By: #### C VDTB #### [facility] Laboratory [address] [address] [address] Aga Estrella GLYCOHEMOGLOBIN A1Con 2021 ADA RECOMMENDATION ADA THERAPEUTIC TARG ET 6.0 - 7.0 ACTION SUGGESTED > 7.0 Normal [facility] Comment on above: Performed By: #### A 1C #### [facility] [address] [place], [place] [address] Dr. Aga Estrella Glucose [Mass/Vol] 183 mg/dL Normal [facility] Comment on above: Performed By: #### A 1C #### [facility] Laboratory [address] [place], [place] [address] Dr. Aga Estrella HbA1c (Bld) [Mass fraction] 8.0 % Critically high <=6.0 [facility] Comment on above: Performed By: #### A 1C #### [facility] [address] [address] [address] Aga Estrella PROF CHEM 8 (BAS METB)on Anion gap [Moles/Vol] 9.0 mmol/L Normal [facility] Comment on above: Performed By: #### B MP #### [facility] [address] [address] [address] Aga Estrella Calcium [Mass/Vol] 8.6 mg/dL Normal 8.5-10.1 [facility] Comment on above: Performed By: #### B MP #### [facility] [address] [address] [address] Aga Estrella Chloride [Moles/Vol] 102 mmol/L Normal 98-107 [facility] Comment on above: Performed By: #### B MP #### [facility] Laboratory [address] [place] [address] Dr. Aga Estrella CO2 [Moles/Vol] 32.7 mmol/L Critically high 22.0-30.0 [facility] Comment on above: Performed By: #### B MP #### [facility] Laboratory [address] [place] [address] Dr. Aga Estrella Creatinine [Mass/Vol] 0.61 mg/dL Normal 0.52-1.04 [facility] Comment on above: Performed By: #### B MP #### [facility] [address] [place] [address] Dr. Aga Estrella EGFR-AF SENEGALESE >60 Normal >=60 [facility] Comment on above: Performed By: #### B MP #### [facility] Laboratory [address] [place] [address] Dr. Aga Estrella EGFR-NON AF SENEGALESE >60 Normal >=60 [facility] Comment on above: Performed By: #### B MP #### [facility] [address] [place] [address] Dr. Aga Estrella Glucose [Mass/Vol] 187 mg/dL Critically high 74-106 [facility] Comment on above: Performed By: #### B MP #### [facility] [address] [address] [address] Aga Estrella Potassium [Moles/Vol] 3.7 mmol/L Normal 3.4-5.0 [facility] Comment on above: Performed By: #### B MP #### [facility] [address] [address] [address] Aga Estrella Sodium [Moles/Vol] 140 mmol/L Normal 137-145 [facility] Comment on above: Performed By: #### B MP #### [facility] [address] [address] [address] Aga Estrella Urea nitrogen [Mass/Vol] 13.0 mg/dL Normal 7.0-18.0 [facility] Comment on above: Performed By: #### B MP #### [facility] [address] [address] [address] gAa Estrella Urea nitrogen/Creatinin e [Mass ratio] 21.3 mg/mg Normal [facility] Comment on above: Performed By: #### B MP #### [facility] [address] [address] [address] Aga Estrella Vital Signs Date Time Vital Sign Value Performing Clinician Faci lity 04-18-2022 14:43-0500 Blood Pressure Location Julian BONILLA [facility] 04-18-2022 14:43-0500 Diastolic blood pressure 88 mm[Hg] Julian BONILLA [facility] 04-18-2022 14:43-0500 Heart rate 80 /min Julian BONILLA [facility] 04-18-2022 14:43-0500 Respiratory rate 16 /min Julian BONILLA [facility] 04-18-2022 14:43-0500 Systolic blood pressure 130 mm[Hg] Julian BONILLA [facility] Encounters Encounter Date Encounter Type Care Provider Facility Start: 05-08-2023 Clinisync Result Encounter Rossana Alicia ARCHITECTURE CONSULTANT Work Phone: [facility] External Department Unsolicited Start: 05-08-2023 Clinisync Result Encounter Rossana Alicia ARCHITECTURE CONSULTANT Work Phone: [facility] External Department Unsolicited Start: 04-10-2023 Patient encounter procedure Rossana Alicia ARCHITECTURE CONSULTANT Work Phone: [facility] Start: 04-10-2023 End: 04-10-2023 ambulatory ROSSANA ALICIA Not Available Start: 03-01-2023 End: 03-01-2023 ambulatory CIERRA Long DRUMMOND Not Available Start: 02-26-2023 End: 02-26-2023 ambulatory ROSSANA ALICIA Not Available Start: 06-07-2022 End: 06-08-2022 ambulatory IRB COMPLIANCE COORDINATOR ROSSANA ALICIA Facility:[facility] Start: 05-31-2022 End: 06-01-2022 ambulatory Julian R NILL Facility:[facility] Start: 05-31-2022 End: 05-31-2022 Patient encounter procedure Julian R NILL General Surgery Nill/Said Coden Start: 05-24-2022 ambulatory Julian NILL Facility:[facility] Start: 05-17-2022 End: 05-18-2022 ambulatory Julian R NILL Facility:CD:[id number] Start: 04-18-2022 End: 04-19-2022 ambulatory Julian R NILL Facility:[facility] Start: 04-18-2022 End: 04-18-2022 Patient encounter procedure Julian R NILL General Surgery Nill/Said Shreya Start: 03-28-2022 ambulatory Julian R NILL Facility :[facility] Start: 12-21-2021 End: 12-22-2021 ambulatory IRB COMPLIANCE COORDINATOR ROSSANA AICHHOLZ Facility:[facility] Start: 09-01-2021 End: 09-01-2021 ambulatory IRB COMPLIANCE COORDINATOR ROSSANA AICHHOLZ Facility:[facility] Start: 07-14-2021 End: 07-15-2021 ambulatory IRB COMPLIANCE COORDINATOR ROSSANA AICMatthewHOLZ Facility: Procedures Date Procedure Procedure Detail Performing Clinician Start: 05-08-2023 MLR HEMOGLOBIN A1C Rossana Alicia ARCHITECTURE CONSULTANT Work Phone: Start: 06-07-2022 Mammography Rossana Alicia ARCHITECTURE CONSULTANT Work Phone: Start: 05-17-2022 Colonoscopy Rossana Maral ARCHITECTURE CONSULTANT Work Phone: Start: 05-17-2022 Colonoscopy Julian GARYIraida Start: 05-17-2022 Esophagogastroduodenoscopy Julian NILL Start: 03-26-2013 Cholecystectomy Julian NILL Start: 02-22-2011 Colonoscopy Julian NILL Start: 03-26-1969 Tonsil and adenoid structure (body structure) Julian NILL Dilation and curettage Mark casanova NILL Esophagogastroduodenoscopy M ichael NILL Excision of lipoma Julian Joann BENSON Oophorectomy Julian NILL Plan of Treatment Date Care Activity Detail Author Start: 05-17-2027 Screening for malign ant neoplasm of colon [facility] Start: 04-10-2024 Medicare Annual Well ness (AWV) Medicare Annual Wellness (AWV) [facility] Start: 01-27-2024 Urine screening for protein Diabetes: Urine Protein Screening [facility] Start: 01-21-2024 Glaucoma screening Diabetes: R etinopathy Screening [facility] Start: 06-08-2023 Screening for malign ant neoplasm of breast Mammogram [facility] Start: 05-14-2023 End: 05-14-2023 Patient encounter procedure 05/14/2023 9:40 AM EST Office Visit [facility] [address] [place] [address] Rossana Alicia NP [address] [place] [id number] [facility] Start: 04-28-2023 Hemoglobin A1c measurement Diabetes: Hemoglobin A1C [facility] Start: 11-24-2022 Influenza vaccination Influenza Vacc ine (#1) [facility] Start: 1955 Screening for malign ant neoplasm of colon [facility] Immunizations Immunization Date Immunization Notes Care Provider Fa cili 08-18-2021 Pfizer Quinonez Cap SARS-CoV-2 Vaccination Rossana Alicia ARCHITECTURE CONSULTANT Work Phone: [facility] 08-18-2021 SARS-CoV-2 mRNA (mqsgzmgraug-xfcu-cvtwe se) vaccine Julian BONILLA [facility] 01-10-2021 SARS-CoV-2 (COVID-19 ) mRNA BNT-162b2 vax Julian BONILLA [facility] 12-14-2020 influenza virus vaccine, unspecified formulation Julian BONILLA [facility] 12-14-2020 Influenza, Seasonal, Quadrivalent, Adjuvanted Rossana Alicia ARCHITECTURE CONSULTANT Work Phone: [facility] 06-18-2020 SARS-CoV-2 (COVID-19 ) mRNA BNT-162b2 vax Julian BONILLA [facility] 05-29-2020 SARS-CoV-2 (COVID-19 ) mRNA BNT-162b2 vax Julian GARYL [facility] Comment on above: Result Comment: 2022: [id number] 12-30-2018 influenza virus vaccine, live, attenuated, for intranasal use Julian BONILLA [facility] Payers Date Payer Category Payer Medicare AETNA MEDICARE A DVANTAGE AETNA MEDICARE REPLACEMENT [id number] 2022-Present [address] [place] [address] [id number] 2021 Private Health Insurance [employer] [facility] [employer] [id number] 2021-Present [address] [address] [place] [address] [id number] 1959 Private Health Insurance [id number] 1955 Unknown [id number] [id number]. 727 1955 Unknown [id number] [id number]. 727 1955 Unknown [id number] [id number]. 727 1955 Unknown [id number] [id number]. 727 1955 Unknown [id number] 2.16.840.1.199683.3.579.2. 593 1955 Unknown [id number] 2.16.840.1.986392.3.579.2. 593 1955 Unknown [id number] 2.16.840.1.687023.3.579.2. 593 1955 Unknown [id number] 2.16.840.1.359297.3.579.2. 593 1955 Unknown [id number] 2.16.840.1.290474.3.579.2. 593 1955 Unknown [id number] 2.16.840.1.918334.3.579.2. 1259 1955 Unknown [id number] 2.16.840.1.141571.3.579.2. 1259 1955 Unknown [id number] [id number]. 1259 Social History Date Type Detail Facility Start: 04-18-2022 End: 02-22-2023 Tobacco smoking status Ex-smoker (finding) [facility] Tobacco smoking status Never [facility] Start: 04-09-2023 End: 04-10-2023 Sex Assigned At Female Shawn Dickson [facility] End: 03-26-1994 History of tobacco use Current smoker [facility] End: 03-26-1994 History of tobacco use Cigarette Smoker [facility] Start: 02-22-2023 Tobacco use and exposure Smoke less tobacco non-user [facility] Start: 04-10-2023 Alcohol intake Ex-drinker (finding) [facility] Start: 04-09-2023 End: 04-10-2023 History of Social function [facility] Within the last year , have you been afraid of your partner or ex-partner? No [facility] Do you belong to any clubs or organizations such as presybeterian groups, unions, fraternal or athletic groups, or school groups? Yes [facility] Are you now , , , , never or living with a partner? Never [facility] How often to you hav e a drink containing alcohol? Never [facility] How hard is it for y ou to pay for the very basics like food, housing, medical care, and heating Very hard [facility] Do you feel stress - tense, restless, nervous, or anxious, or unable to sleep at night because your mind is troubled all the time - these days [OSQ] To some extent [facility] (I/We) worried wheth er (my/our) food would run out before (I/we) got money to buy more. Never true [facility] Start: 1955 Sex Assigned At Not on file [facility] Functional Status Date Assessment Result Facility 04-18-2022 Functional Status N/A [facility] Clinical Note 05-17-2022 Note Date & Type [...] good condition. CC: Rossana Alicia CNP [facility] [place] Clinical Note 04-18-2022 Note Date & Type [...] and Brother. Leukem (more content not included)... [facility] Comment on above: Result Comment: Elec tronically Signed By: FRANKLIN CORTEZ, Julian Smith\Date and Time Signed: 04/18/22 15:13 EST Evaluation + Plan note Note Date & Type Note Facility Evaluation + Plan note No data available for this section [facility] Discharge instructions Note Date & Type Note Facility Hospital Discharge instructions No data available for this section General [facility] Progress note Note Date & Type Note Facility Progress note No data available for this section General [facility] Summary Purpose Family History No Family History Records FoundNo Family History Records FoundNo Family History Records Found Advance Directives No Advanced Directives Records FoundNo Advanced Directives Records FoundNo Advanced Directives Records Found Additional Source Comments Patient Care team informatio n (unrecognized section and content) 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 [facility] [employer] [facility]. provides no warranty or guarantee of the accuracy or completeness of information in this document.
== END 2023-06-29 13:29 | disposition home or self-care (01) ==
LOC: MAMMO 13:28
PROVIDERS: PCP Nurse Practitioner; Visit Provider Nurse Practitioner
DX: Z12.31 Encounter for screening mammogram for malignant neoplasm of breast (principal); Z80.3 Family history of malignant neoplasm of breast; Z80.52 Family history of malignant neoplasm of bladder; Z80.8 Family history of malignant neoplasm of other organs or systems
CPT/HCPCS: 77063; 77067

== ENCOUNTER 2023-10-02 13:17 | Outpatient (OUT) | payer MEDICARE, SELFPAY ==
--- NOTE | 2023-10-02 13:26 | CT_ITS ---
The [address] [address] Patient Name: JAYE PIRES MRN: [facility]:[id number] date: 1955 Sex: F Assigned Patient Location: CT Current Patient Location: CT Accession/Order Number: [id number] Exam Date: 10/02/2023 13:30 Report Date: 10/02/2023 16:05 At the request of: SARAH TREJO Procedure: CT sinus wo con EXAMINATION: CT sinus wo con HISTORY: Chronic Sinusitis COMPARISON: No relevant comparison available. TECHNIQUE: Axial and Coronal CT images were created without IV contrast. Dose reduction techniques were achieved by using automated exposure control and/or adjustment of mA and/or kV according to patient size and/or use of iterative reconstruction technique. FINDINGS: MAXILLARY SINUSES: 2.3 mm right and 3.5 mm left maxillary mucoperiosteal thickening in the lower portions. Some mild mucoperiosteal thickening bilateral ostiomeatal units with narrowing ETHMOID SINUSES: No significant mucosal thickening or fluid. Fovea ethmoidali and lamina papyracea are symmetric and intact. SPHENOID SINUSES: Minimal mucoperiosteal thickening measuring 2 mm inferior right sphenoid. The left sphenoid normally aerated FRONTAL SINUSES: No significant mucosal thickening or fluid. Frontal recesses are patent. NASAL FOSSA: 3 mm leftward deviation of the nasal septum. No sandhya bullosa or paradoxical turbinates are identified. OTHER: Negative. Limited views of the skull base and orbits are unremarkable. CT/CT sinus wo con IMPRESSION: Minimal bilateral maxillary and right sphenoid mucoperiosteal thickening Electronically authenticated by: RUDDY ROSALES Date: 10/02/2023 16:05
== END 2023-10-02 13:18 | disposition home or self-care (01) ==
LOC: CT 13:18
PROVIDERS: PCP Nurse Practitioner; Visit Provider Nurse Practitioner
DX: J32.0 Chronic maxillary sinusitis (principal)
CPT/HCPCS: 70486

== ENCOUNTER 2023-12-14 09:43 | Outpatient (OUT) | payer MEDICARE, SELFPAY ==
--- OUTSIDE RECORDS SUMMARY | 2023-12-14 09:57 | XMS_ITS | CCD ---
Author Organization [facility] Care Team Providers Care Brush Finisher Name Role Phone ROSSANA ALICIA Primary Care Physician Julian BONILLA Attending Unavailable Julian BONILLA Attending Unavailable ROSSANA ALICIA Referring Unavailable Julian BONILLA Attending Unavailable Julian BONILLA Attending Unavailable AICHHOLZROSSANA Referring Unavailable AICHHOLZ, ORAL AND MAXILLOFACIAL SURGERY ROSSANA Admitting Unavailable AICHHOLZ, ORAL AND MAXILLOFACIAL SURGERY ROSSANA Attending Unavailable AICHHOLZ, ORAL AND MAXILLOFACIAL SURGERY ROSSANA Consulting Unavailable AICHHOLZ, ORAL AND MAXILLOFACIAL SURGERY ROSSANA Primary Care Unavailable NILL ., DR GUERRA Attending Unavailable NILL ., DR GUERRA Consulting Unavailable NILL ., DR GUERRA Admitting Unavailable AICHHOLZ, ORAL AND MAXILLOFACIAL SURGERY ROSSANA Primary Care Unavailable GURPREET II, PHILIP Consulting Unavailable CIERRA MAGANA Consulting Unavailable AICHHOLZ, ORAL AND MAXILLOFACIAL SURGERY ROSSANA Admitting Unavailable AICHHOLZ, ORAL AND MAXILLOFACIAL SURGERY ROSSANA Attending Unavailable AICHHOLZ, ORAL AND MAXILLOFACIAL SURGERY ROSSANA Consulting Unavailable AICHHOLZ, ORAL AND MAXILLOFACIAL SURGERY ROSSANA Primary Care Unavailable AICHHOLZ, ORAL AND MAXILLOFACIAL SURGERY ROSSANA Primary Care Unavailable AICHHOLZ, ORAL AND MAXILLOFACIAL SURGERY ROSSANA Admitting Unavailable AICHHOLZ, ORAL AND MAXILLOFACIAL SURGERY ROSSANA Attending Unavailable AICHHOLZ, ORAL AND MAXILLOFACIAL SURGERY ROSSANA Consulting Unavailable AICHHOLZ, ORAL AND MAXILLOFACIAL SURGERY ROSSANA Primary Care Unavailable DR RUDDY ROSALES V Consulting Unavailable AICHHOLZ, ORAL AND MAXILLOFACIAL SURGERY ROSSANA Admitting Unavailable AICHHOLZ, ORAL AND MAXILLOFACIAL SURGERY ROSSANA Attending Unavailable AICHHOLZ, ORAL AND MAXILLOFACIAL SURGERY ROSSANA Consulting Unavailable Kuldip Cisneros MD Primary Care Provider AICHHOLZ, ROSSANA Attending Unavailable AICHHOLZ, ROSSANA Attending Unavailable AICHHOLZ, ROSSANA Attending Unavailable AICHHOLZ, ROSSANA Attending Unavailable AICHHOLZ, ROSSANA Attending Unavailable AICHHOLZ, ROSSANA Attending Unavailable AICHHOLZ, ROSSANA Attending Unavailable CIERRA DRUMMOND Attending Unavailable ROSSANA ALICIA Attending Unavailable Allergies Allergy Classification Reported Allergen(s) Allergy Type Date of Onset Reaction(s) Facility (4 sources) Cefaclor; Translations: [cefaclor] Drug Allergy 9 Abnormal breathing (finding), Hives, Shortness of breath [facility] (3 sources) Penicillin; Translations: [penicillin] Drug Allergy Weal (disorder), Abnormal breathing (finding) [facility] (3 sources) Streptococcus pneumoniae type 1 capsular [...] vaccine] Drug Allergy Dyspnea (finding), Weal (disorder) [facility] (1 source) Cefaclor Drug Allergy 4 [facility] (1 source) Penicillins Drug allergy (disorder) 4 [facility] (1 source) Pneumovax 23 Drug allergy (disorder) 4 [facility] (1 source) Penicillins Drug Allergy 3 Hives, Shortness of breath [facility] (1 source) Pneumococcal vaccine Drug Allergy 3 Hives, Shortness of breath [facility] Medications Current Medications Medication Drug Class(es) Dates Sig (Normalized) Sig (Original) [id number] 200 actuat albuterol 0.09 mg/actuat metered dose [...] Start: 04-18-2022 take 1 tablet by nancy once daily atorvastatin 80 mg Tab 80 [...] complication, without long-term current use of insulin (CMS/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 USE OF ASPIRIN] Onset: 05-23-2022 Episodic Other aftercare (1 source) alf (current) use of oral hypoglycemic drugs; Translations: [[facility] USE ORAL HYPOGLYCEMIC DX] Onset: 05-23-2022 Episodic [...] Test Name Value Interpretation Reference Range Facility [facility] HEMOGLOBIN A1Con 024 Glucose [Mass/Vol] 232 mg/dL [facility] HbA1c (Bld) [Mass fraction] 9.7 % High 4.5 - 6.2 % [facility] Comment on above: ADA RECOMMENDED LIMI T 4.0 - 6.0 ADA THERAPEUTIC TARGET < 7.0 ACTION SUGGESTED > 7.0 Interpretation and review of laboratory results Abnormal [facility] MG MAMM SCREEN 3D JOSE CADon 06-07-2022 MG MAMM SCREEN 3D JOSE CAD Patient: JAYE PIRES Exam Date: 06/07/2022 : 1955 Gender:F Ordering : RON ALICIA CNP Admission #: [id number] Family : Order #: [id number] CLICK HERE TO VIEW EXAM RADIOLOGY REPORT [...] skin cancer at age 60. LOCATION: [facility] BREAST COMPOSITION: Scattered areas fibroglandular density. [...] MD on 06/07/2022 at 13:35 Normal [facility] Ambulatory Visit Summaryon 0 05-31-2022 Ambulatory [...] of colon Tubular adenoma of colon Normal [facility] General Surgery Office/Clini c Noteon 05-31-2022 General [...] Sister. Immunizations Vaccine Date Status Comments SARSCoV2 mRNA(rdzptkvvw-cysm-ljzbah) vac 08/18/2021 Recorded SARS-CoV-2 (COVID-19) mRNA BNT-162b2 vax 01/10/2021 Recorded influenza virus vaccine, inactivated 12/14/2020 Recorded SARS-CoV-2 (COVID-19) mRNA BNT-162b2 vax 06/18/2020 Recorded SARS-CoV-2 (COVID-19) mRNA BNT-162b2 vax 05/29/2020 Recorded 2022-04-18: TPV65 influenza virus vaccine, live, trivalent 12/30/2018 Recorded Normal [facility] Comment on above: Result Comment: Elec tronically Signed By: FRANKLIN CORTEZ, Julian Smith\Date and Time Signed: 05/31/22 14:36 EST Reminderson 05-31-2022 Reminders - From: Billie Curtis LPN To: N - Clinical; Sent: 05/31/2022 16:01:22 EST Show up: 04/16/2027 07:00:00 EST Subject: colonoscopy recall Due Date/Time: 05/17/2027 07:00:00 EST Reminder/Recall Patient is due for colonoscopy 05/17/27 due to history of colonic polyps. Normal [facility] Pathology Noteon 05-19-2022 Pathology Note [id number]#1.00CD:127 Normal [facility] Outside Colonoscopyon 2022 Outside Colonoscopy [id number]#1.00CD:127 Normal [facility] POINT OF CARE GLUCOSEon 04-27 Glucose [Mass/Vol] 176 mg/dL Critically high 74-106 [facility] Comment on above: Performed By: #### P OCGLUC ####[facility] [address] [place] [address]Dr. Aga Estrella Pre-Certification Formon Pre-Certification Form [id number]#1.00CD:127 Normal [facility] Facesheeton 04-20-2022 Facesheet [id number]#1.00CD:127 [facility] Consent for Procedure/Surger yon 04-19-2022 Consent for Procedure/Surgery [id number]#1.00CD:127 Normal [facility] Physician Referralon 023 Physician Referral [id number]#1.00CD:127 Normal [facility] Physician Referralon 023 Physician Referral [id number]:127 Normal [facility] MICROALBUMIN URINEon 022 Albumin, Urine <3.0 Normal Not Estab. [facility] Comment on above: Result Comment: Ve rified by repeat analysis Performed By: #### M ALBLC #### [facility] [address] [place], [place] [address] Dr. Aga Estrella CBC AUTO DIFFon 12-21-2021 BASO # 0.0 103/ul Normal 0.0-0.1 [facility] Comment on above: Performed By: #### C BC #### [facility] [address] [place] [address] Dr. Aga Estrella Basophils/100 WBC (Bld) 0.4 % Normal 0.2-2.0 [facility] Comment on above: Performed By: #### C BC #### [facility] [address] [place] [address] Dr. Aga Estrella EO # 0.1 103/ul Normal 0.0-0.7 [facility] Comment on above: Performed By: #### C BC #### [facility] [address] [place] [address] Dr. Aga Estrella Eosinophils/100 WBC (Bld) 1.6 % Normal 0.9-7.0 [facility] Comment on above: Performed By: #### C BC #### [facility] [address] [place] [address] Dr. Aga Estrella Erythrocyte distribution width (RBC) [Ratio] 14.2 % Normal 11.0-15.0 [facility] Comment on above: Performed By: #### C BC #### [facility] [address] [place] [address] Dr. Aga Estrella Hematocrit (Bld) [Volume fraction] 42.1 % Normal 36.0-48.0 [facility] Comment on above: Performed By: #### C BC #### [facility] [address] [place] [address] Dr. Aga Estrella Hemoglobin (Bld) [Mass/Vol] 13.1 g/dL Normal 12.0-16.0 [facility] Comment on above: Performed By: #### C BC #### [facility] [address] [place] [address] Dr. Aga Estrella IG # 0.02 10e3/ul Normal 0.00-0.03 [facility] Comment on above: Performed By: #### C BC #### [facility] [address] [place] [address] Dr. Aga Estrella IG % 0.4 % Normal 0.0-0.5 [facility] Comment on above: Performed By: #### C BC #### [facility] [address] [place] [address] Dr. Aga Estrella LYMPH # 1.7 103/ul Normal 1.2-3.8 [facility] Comment on above: Performed By: #### C BC #### [facility] [address] [place] [address] Dr. Aga Estrella Lymphocytes/100 WBC (Bld) 29.4 % Normal 20.5-60.0 [facility] Comment on above: Performed By: #### C BC #### [facility] [address] [place] [address] Dr. Aga Estrella MANUAL DIFF REQ NO Normal [facility] Comment on above: Performed By: #### C BC #### [facility] [address] [place] [address] Dr. Aga Estrella MCH (RBC) [Entitic mass] 28.8 pg Normal 26.7-34.0 [facility] Comment on above: Performed By: #### C BC #### [facility] [address] [place] [address] Dr. Aga Estrella MCHC (RBC) [Mass/Vol] 31.1 g/dL Normal 29.9-35.2 [facility] Comment on above: Performed By: #### C BC #### [facility] [address] [place] [address] Dr. Aga Estrella MCV (RBC) [Entitic vol] 92.5 fL Normal 81.0-99.0 [facility] Comment on above: Performed By: #### C BC #### [facility] [address] [place] [address] Dr. Aga Estrella MONO # 0.4 103/ul Normal 0.3-0.8 [facility] Comment on above: Performed By: #### C BC #### [facility] [address] [place] [address] Dr. Aga Estrella Monocytes/100 WBC (Bld) 6.4 % Normal 1.7-12.0 [facility] Comment on above: Performed By: #### C BC #### [facility] [address] [place] [address] Dr. Aga Estrella NEUT # 3.5 103/ul Normal 1.4-6.5 [facility] Comment on above: Performed By: #### C BC #### [facility] [address] [place] [address] Dr. Aga Estrella Neutrophils/100 WBC (Bld) 61.8 % Normal 43.0-75.0 [facility] Comment on above: Performed By: #### C BC #### [facility] [address] [place] [address] Dr. Aga Estrella Platelet mean volume (Bld) [Entitic vol] 10.2 fL Normal 9.5-13.5 [facility] Comment on above: Performed By: #### C BC #### [facility] [address] [place] [address] Dr. Aga Estrella PLT 195 103/ul Normal 150-450 [facility] Comment on above: Performed By: #### C BC #### [facility] [address] [place] [address] Dr. Aga Estrella RBC 4.55 106/ul Normal 4.20-5.40 [facility] Comment on above: Performed By: #### C BC #### [facility] [address] [place] [address] Dr. Aga Estrella WBC 5.7 103/ul Normal 4.0-11.0 [facility] Comment on above: Performed By: #### C BC #### [facility] [address] [place] [address] Dr. Aga Estrella GLYCOHEMOGLOBIN A1Con 2021 ADA RECOMMENDATION SEE BELOW Normal [facility] Comment on above: Result Comment: ADA RECOMMENDED LIMIT 4.0 - 6.0 ADA THERAPEUTIC TARGET < 7.0 ACTION SUGGESTED > 7.0 Performed By: #### A 1C #### [facility] [address] [place] [address] Dr. Aga Estrella Glucose [Mass/Vol] 192 mg/dL Normal [facility] Comment on above: Performed By: #### A 1C #### [facility] [address] [place] [address] [address] Aga Estrella HbA1c (Bld) [Mass fraction] 8.3 % Critically high 4.5-6.2 [facility] Comment on above: Performed By: #### A 1C #### [facility] [address] [place] [address] [address] Aga Estrella LIPID PROFILEon 12-21-2021 CHOL-HDL RATIO NORM SEE BELOW Normal [facility] Comment on above: Result Comment: 3.3 - 4.4 LOW RISK 4.4 - 7.1 AVERAGE RISK 7.1 - 11.0 MODERATE RISK >11.0 HIGH RISK Performed By: #### L IPID, CMP #### [facility] [address] [place] [address] Dr. Aga Estrella Cholesterol [Mass/Vol] 123 mg/dL Normal <=200 [facility] Comment on above: Performed By: #### L IPID, CMP #### [facility] [address] [place] [address] [address] Aga Estrella Cholesterol in HDL [Mass/Vol] 51 mg/dL Normal 40-60 [facility] Comment on above: Performed By: #### L IPID, CMP #### [facility] [address] [place] [address] Dr. Aga Estrella Cholesterol in LDL [Mass/Vol] 45.8 mg/dL Normal [facility] Comment on above: Performed By: #### L IPID, CMP #### [facility] [address] [place] [address] [address] Aga Estrella Cholesterol.total/ Cholesterol in HDL [Mass ratio] 2.4 {ratio} Normal [facility] Comment on above: Performed By: #### L IPID, CMP #### [facility] [address] [place] [address] [address] Aga Estrella HDL NORMAL > or = 60 mg/dl - LO W CARDIOVASCULAR RISK <40 mg/dl - HIGH CARDIOVASCULAR RISK Normal [facility] Comment on above: Performed By: #### L IPID, CMP #### [facility] [address] [place] [address] [address] Aga Estrella LDL CALC NORMAL SEE BELOW Normal [facility] Comment on above: Result Comment: <100 mg/dl OPTIMAL 100 - 129 mg/dl NEAR OR ABOVE OPTIMAL 130 - 159 mg/dl BORDERLINE HIGH 160 - 189 mg/dl HIGH >190 mg/dl VERY HIGH Performed By: #### L IPID, CMP #### [facility] [address] [place] [address] [address] Aga Estrella Triglyceride [Mass/Vol] 131 mg/dL Normal <=150 [facility] Comment on above: Performed By: #### L IPID, CMP #### [facility] [address] [place] [address] [address] Aga Estrella VLDL CALC 26.2 mg/dL Normal [facility] Comment on above: Performed By: #### L IPID, CMP #### [facility] [address] [place] [address] [address] Aga Estrella PROF 14(COMP METB)on 022 Albumin [Mass/Vol] 3.5 g/dL Normal 3.4-5.0 [facility] Comment on above: Performed By: #### L IPID, CMP #### [facility] [address] [place] [address] Dr. Aga Estrella Albumin/Globulin [Mass ratio] 1.0 {ratio} Normal [facility] Comment on above: Performed By: #### L IPID, CMP #### [facility] [address] [place] [address] Dr. Aga Estrella ALP [Catalytic activity/Vol] 147 U/L Critically high 46-116 [facility] Comment on above: Performed By: #### L IPID, CMP #### [facility] [address] [place] [address] Dr. Aga Estrella ALT [Catalytic activity/Vol] 42 U/L Normal 14-59 [facility] Comment on above: Performed By: #### L IPID, CMP #### [facility] [address] [place] [address] [address] Aga Estrella Anion gap [Moles/Vol] 12.2 mmol/L Normal [facility] Comment on above: Performed By: #### L IPID, CMP #### [facility] [address] [place] [address] [address] Aga Estrella AST [Catalytic activity/Vol] 32 U/L Normal 15-37 [facility] Comment on above: Performed By: #### L IPID, CMP #### [facility] [address] [place] [address] [address] Aga Estrella Bilirubin [Mass/Vol] 0.3 mg/dL Normal 0.2-1.0 [facility] Comment on above: Performed By: #### L IPID, CMP #### [facility] [address] [place] [address] Dr. Aga Estrella Calcium [Mass/Vol] 9.1 mg/dL Normal 8.5-10.1 [facility] Comment on above: Performed By: #### L IPID, CMP #### [facility] [address] [place] [address] Dr. Aga Estrella Chloride [Moles/Vol] 103 mmol/L Normal 98-107 [facility] Comment on above: Performed By: #### L IPID, CMP #### [facility] [address] [place] [address] Dr. Aga Estrella CO2 [Moles/Vol] 29.9 mmol/L Normal 21.0-32.0 [facility] Comment on above: Performed By: #### L IPID, CMP #### [facility] [address] [place] [address] Dr. Aga Estrella Creatinine [Mass/Vol] 0.65 mg/dL Normal 0.55-1.02 [facility] Comment on above: Performed By: #### L IPID, CMP #### [facility] [address] [place] [address] Dr. Aga Estrella EGFR-AF [place]ER >60 Normal >=60 [facility] Comment on above: Performed By: #### L IPID, CMP #### [facility] [address] [place] [address] [address] Aga Estrella EGFR-NON AF [place] >60 Normal >=60 [facility] Comment on above: Performed By: #### L IPID, CMP #### [facility] [address] [place] [address] [address] Aga Estrella Globulin (S) [Mass/Vol] 3.6 g/dL Normal [facility] Comment on above: Performed By: #### L IPID, CMP #### [facility] [address] [place] [address] [address] Aga Estrella Glucose [Mass/Vol] 156 mg/dL Critically high 74-106 [facility] Comment on above: Performed By: #### L IPID, CMP #### [facility] [address] [place] [address] Dr. Aga Estrella Potassium [Moles/Vol] 4.1 mmol/L Normal 3.5-5.1 [facility] Comment on above: Performed By: #### L IPID, CMP #### [facility] [address] [place] [address] Dr. Aga Estrella Protein [Mass/Vol] 7.1 g/dL Normal 6.4-8.2 [facility] Comment on above: Performed By: #### L IPID, CMP #### [facility] [address] [place] [address] Dr. Aga Estrella Sodium [Moles/Vol] 141 mmol/L Normal 136-145 [facility] Comment on above: Performed By: #### L IPID, CMP #### [facility] [address] [place] [address] Dr. Aga Estrella Urea nitrogen [Mass/Vol] 13.0 mg/dL Normal 7.0-18.0 [facility] Comment on above: Performed By: #### L IPID, CMP #### [facility] [address] [place] [address] Dr. Aga Estrella Urea nitrogen/Creatinin e [Mass ratio] 20.0 mg/mg Normal [facility] Comment on above: Performed By: #### L IPID, CMP #### [facility] [address] [place] [address] [address] Aga Estrella UA RANDOM W/MICROSCOPICon BACTERIA NONE SEEN Normal NONE SEEN [facility] Comment on above: Performed By: #### U AMIC ####[facility] [address] [place] [address]Dr. Aga Estrella Bilirubin Ql (U) Negative Normal NEGATIVE [facility] Comment on above: Performed By: #### U AMIC ####[facility] [address] [place] [address]Dr. Aga Estrella CAST NONE SEEN Normal NONE SEEN [facility] Comment on above: Performed By: #### U AMIC ####[facility] [address] [place] [address]Dr. Aga Estrella Clarity (U) CLEAR Normal CLEAR [facility] Comment on above: Performed By: #### U AMIC ####[facility] [address] [place] [address]Dr. Aga Estrella Color (U) LT. YELLOW Normal YELLOW [facility] Comment on above: Performed By: #### U AMIC ####[facility] [address] [place] [address]Dr. Aga Estrella Crystals LM Nom (Urine sed) NONE SEEN Normal NONE SEEN [facility] Comment on above: Performed By: #### U AMIC ####[facility] [address] [place] [address]Dr. Aga Estrella Epithelial cells LM Ql (Urine sed) RARE Normal NONE SEEN /RARE [facility] Comment on above: Performed By: #### U AMIC ####[facility] [address] [place] [address]Dr. Aga Estrella Glucose Ql (U) Negative Normal NEGATIVE [facility] Comment on above: Performed By: #### U AMIC ####[facility] [address] [place] [id number]. Aga Estrella Hemoglobin Ql (U) Negative Normal NEGATIVE [facility] Comment on above: Performed By: #### U AMIC ####[facility] [address] [place] [address]Dr. Aga Estrella Ketones Ql (U) Negative Normal NEGATIVE [facility] Comment on above: Performed By: #### U AMIC ####[facility] [address] [place], [place] [address]Dr. Aga Estrella LEUKOCYTES Negative Normal NEGATIVE [facility] Comment on above: Performed By: #### U AMIC ####[facility] [address] [place], [place] [address]Dr. Aga Estrella MUCOUS NONE SEEN Normal NONE SEEN [facility] Comment on above: Performed By: #### U AMIC ####[facility] [address] [place], [place] [address]Dr. Aga Estrella Nitrite Ql (U) Negative Normal NEGATIVE [facility] Comment on above: Performed By: #### U AMIC ####[facility] [address] [place], [place] [address]Dr. Aga Estrella pH (U) 6.0 [pH] Normal 5-9 [facility] Comment on above: Performed By: #### U AMIC ####[facility] [address] [place], [place] [address]Dr. Aga Estrella RBC NONE SEEN Abnormal 0-2 [facility] Comment on above: Performed By: #### U AMIC ####[facility] [address] [place], [place] [address]Dr. Aga Estrella SPEC GRAVITY 1.015 Normal 1.005-<=1.0 25 [facility] Comment on above: Performed By: #### U AMIC ####[facility] [address] [place], [place] [address]Dr. Aga Estrella UA PROTEIN Negative Normal NEGATIVE/ TRACE [facility] Comment on above: Performed By: #### U AMIC ####[facility] [id number] [place], [place] [address]Dr. Aga Estrella Urobilinogen Qn (U) 0.2 {Kiya'U}/dL Normal 0.2 - 1.0 [facility] Comment on above: Performed By: #### U AMIC ####[facility] [address] [place], [place] [address]AxMavis Estrella WBC 0-2 Abnormal NONE SEEN [facility] Comment on above: Performed By: #### U AMIC ####[facility] [address] [place], [place] [address]Xe. Aga Estrella Covid-19 PCR ([facility])on SARS-CoV-2 (COVID-19) RNA JOSE+probe Ql (Unsp spec) Not detected Normal NOT DETECTED [facility] Comment on above: Result Comment: This test is not yet approved or cleared by the [place] FDA. When there are no FDA-approved or cleared tests available, and other criteria are met, FDA can make tests available under an emergency access mechanism called an Emergency Use Authorization (EUA). The EUA for this test is supported by the [employer] Machine Operator of Health and Human Service's (HHS's) declaration [...] consistent with SARS-CoV-2. Performed By: #### C VDTBH #### [facility] [address] [place] [address] Dr. Aga Estrella GLYCOHEMOGLOBIN A1Con 2021 ADA RECOMMENDATION ADA THERAPEUTIC TARG ET 6.0 - 7.0 ACTION SUGGESTED > 7.0 Normal [facility] Comment on above: Performed By: #### A 1C #### [facility] [address] [place] [address] Dr. Aga Estrella Glucose [Mass/Vol] 183 mg/dL Normal [facility] Comment on above: Performed By: #### A 1C #### [facility] [address] [place] [address] Dr. Aga Estrella HbA1c (Bld) [Mass fraction] 8.0 % Critically high <=6.0 [facility] Comment on above: Performed By: #### A 1C #### [facility] [address] [place] [address] Dr. Aga Estrella PROF CHEM 8 (BAS METB)on Anion gap [Moles/Vol] 9.0 mmol/L Normal [facility] Comment on above: Performed By: #### B MP #### [facility] [address] [place] [address] Dr. Aga Estrella Calcium [Mass/Vol] 8.6 mg/dL Normal 8.5-10.1 [facility] Comment on above: Performed By: #### B MP #### [facility] [address] [place] [address] Dr. Aga Estrella Chloride [Moles/Vol] 102 mmol/L Normal 98-107 [facility] Comment on above: Performed By: #### B MP #### [facility] [address] [place] [address] Dr. Aga Estrella CO2 [Moles/Vol] 32.7 mmol/L Critically high 22.0-30.0 [facility] Comment on above: Performed By: #### B MP #### [facility] [address] [place] [address] Dr. Aga Estrella Creatinine [Mass/Vol] 0.61 mg/dL Normal 0.52-1.04 [facility] Comment on above: Performed By: #### B MP #### [facility] [address] [place] [address] Dr. Aga Estrella EGFR-AF [place] >60 Normal >=60 [facility] Comment on above: Performed By: #### B MP #### [facility] [address] [place] [address] Dr. Aga Estrella EGFR-NON AF [place] >60 Normal >=60 [facility] Comment on above: Performed By: #### B MP #### [facility] [address] [place] [address] Dr. Aga Estrella Glucose [Mass/Vol] 187 mg/dL Critically high 74-106 T [facility] Comment on above: Performed By: #### B MP #### [facility] [address] [address] [address] Aga Estrella Potassium [Moles/Vol] 3.7 mmol/L Normal 3.4-5.0 [facility] Comment on above: Performed By: #### B MP #### [facility] [address] [address] [address] Aga Estrella Sodium [Moles/Vol] 140 mmol/L Normal 137-145 [facility] Comment on above: Performed By: #### B MP #### [facility] [address] [place] [address] Dr. Aga Estrella Urea nitrogen [Mass/Vol] 13.0 mg/dL Normal 7.0-18.0 [facility] Comment on above: Performed By: #### B MP #### [facility] [address] [place] [address] Dr. Aga Estrella Urea nitrogen/Creatinin e [Mass ratio] 21.3 mg/mg Normal [facility] Comment on above: Performed By: #### B MP #### [facility] [address] [place] [address] Dr. Aga Estrella Vital Signs Date Time Vital Sign Value Performing Clinician Leigh Ann laws 04-18-2022 14:43-0500 Blood Pressure Location Julian BONILLA [facility] 04-18-2022 14:43-0500 Diastolic blood pressure 88 mm[Hg] Julian BONILLA [facility] 04-18-2022 14:43-0500 Heart rate 80 /min Julian BONILLA [facility] 04-18-2022 14:43-0500 Respiratory rate 16 /min Julian BONILLA [facility] 04-18-2022 14:43-0500 Systolic blood pressure 130 mm[Hg] Julian BONILLA [facility] Encounters Encounter Date Encounter Type Care Provider Facility Start: 12-05-2023 End: 12-05-2023 ambulatory ROSSANA AICHHOLZ Not Available Start: 10-01-2023 End: 10-01-2023 ambulatory ROSSANA AICHHOLZ Not Available Start: 09-12-2023 End: 09-12-2023 ambulatory ROSSANA AICHHOLZ Not Available Start: 08-16-2023 End: 08-16-2023 ambulatory ROSSANA AICHHOLZ Not Available Start: 07-05-2023 End: 07-05-2023 ambulatory ROSSANA AICHHOLZ Not Available Start: 05-21-2023 End: 05-21-2023 ambulatory ROSSANA AICHHOLZ Not Available Start: 05-08-2023 Clinisync Result Encounter Rossana Aichholz NUTRITIONAL SERVICES DIRECTOR Work Phone: [facility] Unsolicited Start: 05-08-2023 Clinisync Result Encounter Rossana Aichholz NUTRITIONAL SERVICES DIRECTOR Work Phone: [facility] Unsolicited Start: 04-10-2023 Patient encounter procedure Rossana Aichholz NUTRITIONAL SERVICES DIRECTOR Work Phone: [facility] Start: 04-10-2023 End: 04-10-2023 ambulatory ROSSANA AICHHOLZ Not Available Start: 03-01-2023 End: 03-01-2023 ambulatory CIERRA Mercedes DRUMMOND Not Available Start: 02-26-2023 End: 02-26-2023 ambulatory ROSSANA AICHHOLZ Not Available Start: 06-07-2022 End: 06-08-2022 ambulatory ORAL AND MAXILLOFACIAL SURGERY ROSSANA AICHHOLZ Facility:[facility] Start: 05-31-2022 End: 06-01-2022 ambulatory Julian BONILLA Facility:[facility] Start: 05-31-2022 End: 05-31-2022 Patient encounter procedure Julian BONILLA General [facility] Start: 05-24-2022 ambulatory Julian BONILLA Facility:[facility] Start: 05-17-2022 End: 05-18-2022 ambulatory Julian BONILLA Facility:CD:[id number] Start: 04-18-2022 End: 04-19-2022 ambulatory Julian R NILL Facility:[facility] Start: 04-18-2022 End: 04-18-2022 Patient encounter procedure Julian Deandre COOKIEL General Surgery N[facility]/Said Shreya Start: 03-28-2022 ambulatory Julian R NILL Facility :[facility] Start: 12-21-2021 End: 12-22-2021 ambulatory RON SMITH AICMatthewHOLArchie Facility:[facility] Start: 09-01-2021 End: 09-01-2021 ambulatory ORAL AND MAXILLOFACIAL SURGERY ROSSANA AICHHOLZ Facility:[facility] Start: 07-14-2021 End: 07-15-2021 ambulatory ORAL AND MAXILLOFACIAL SURGERY ROSSANA AICHHOLZ Facility:[facility] Procedures Date Procedure Procedure Detail Performing Clinician Start: 05-08-2023 MLR HEMOGLOBIN A1C Rossana Aicvaleryz NUTRITIONAL SERVICES DIRECTOR Work Phone: Start: 06-07-2022 Mammography Rossana Aichholz NUTRITIONAL SERVICES DIRECTOR Work Phone: Start: 05-17-2022 Colonoscopy Rossana Aichholz NUTRITIONAL SERVICES DIRECTOR Work Phone: Start: 05-17-2022 Colonoscopy Julian BONILLA Start: 05-17-2022 Esophagogastroduodenoscopy Julian GARYL Start: 03-26-2013 Cholecystectomy Julian BONILLA Start: 02-22-2011 Colonoscopy Julian BONILLA Start: 03-26-1969 Tonsil and adenoid structure (body structure) Julian GARYL Dilation and curettage Mark BONILLA Esophagogastroduodenoscopy Julia GARYL Excision of lipoma Julian BENSON Oophorectomy Julian BONILLA Plan of Treatment Date Care Activity Detail Author Start: 02-22-2028 Screening for malign ant neoplasm of colon [facility] Start: 04-10-2024 Medicare Annual Well ness (AWV) Medicare Annual Wellness (AWV) [facility] Start: 01-27-2024 Urine screening for protein Diabetes: Urine Protein Screening [facility] Start: 01-21-2024 Glaucoma screening Diabetes: R etinopathy Screening [facility] Start: 06-08-2023 Screening for malign ant neoplasm of breast Mammogram [facility] Start: 05-14-2023 End: 05-14-2023 Patient encounter procedure 05/14/2023 9:40 AM EST Office Visit [facility] [address] [place] [phone] Rossana Alicia NP [address] [place] [phone] [facility] Start: 04-28-2023 Hemoglobin A1c measurement Diabetes: Hemoglobin A1C [facility] Start: 11-24-2022 Influenza vaccination Influenza Vacc ine (#1) [facility] Start: 1955 Screening for malign ant neoplasm of colon [facility] Immunizations Immunization Date Immunization Notes Care Provider Fa cility 08-18-2021 Pfizer Quinonez Cap SARS-CoV-2 Vaccination Rossana Alicia NUTRITIONAL SERVICES DIRECTOR Work Phone: [facility] 08-18-2021 SARS-CoV-2 mRNA (obawlcattgp-zoao-mscqz se) vaccine Julian BONILLA [facility] 01-10-2021 SARS-CoV-2 (COVID-19 ) mRNA BNT-162b2 vax Julian BONILLA [facility] 12-14-2020 influenza virus vaccine, unspecified formulation Julian BONILLA [facility] 12-14-2020 Influenza, Seasonal, Quadrivalent, Adjuvanted Rossana Alicia NUTRITIONAL SERVICES DIRECTOR Work Phone: [facility] 06-18-2020 SARS-CoV-2 (COVID-19 ) mRNA BNT-162g4 vax Julian NILL [facility] 05-29-2020 SARS-CoV-2 (COVID-19 ) mRNA BNT-162b2 vax Julian GARYIraida [facility] Comment on above: Result Comment: 2022: [id number] 12-30-2018 influenza virus vaccine, live, attenuated, for intranasal use Julian GARYIraida [facility] Payers Date Payer Category Payer Medicare AETNA MEDICARE A DVANTAGE AETNA MEDICARE REPLACEMENT [id number] 2022-Present [address] [place] [address] [id number] 2021 Private Health Insurance A[employer] BETTER HEALTH A[employer] BETTER HEALTH [id number] 2021-Present [address] [address] [place] [address] [id number] 1959 Private Health Insurance [id number] 1955 Unknown [id number] 2.16.840.1.916952.3.579.2. 727 1955 Unknown [id number] 2.16.840.1.353043.3.579.2. 727 1955 Unknown [id number] 2.16.840.1.240520.3.579.2. 727 1955 Unknown [id number] 2.16.840.1.007454.3.579.2. 727 1955 Unknown [id number] 2.16.840.1.432270.3.579.2. 593 1955 Unknown [id number] 2.16.840.1.610205.3.579.2. 593 1955 Unknown [id number] 2.16.840.1.627226.3.579.2. 593 1955 Unknown [id number] 2.16.840.1.439047.3.579.2. 593 1955 Unknown [id number] 2.16.840.1.187569.3.579.2. 593 1955 Unknown [id number] 2.16.840.1.182836.3.579.2. 1259 1955 Unknown [id number] 2.16.840.1.739329.3.579.2. 1259 1955 Unknown [id number] 2.16.840.1.230321.3.579.2. 1259 1955 Unknown [id number] 2.16.840.1.234287.3.579.2. 1259 1955 Unknown [id number] 2.16.840.1.310819.3.579.2. 1259 1955 Unknown [id number] 2.16.840.1.317045.3.579.2. 1259 1955 Unknown [id number] 2.16.840.1.635753.3.579.2. 1259 1955 Unknown [id number] 2.16.840.1.324766.3.579.2. 1259 1955 Unknown [id number] 2.16.840.1.954024.3.579.2. 1259 Social History Date Type Detail Facility Start: 04-18-2022 End: 02-22-2023 Tobacco smoking status Ex-smoker (finding) [facility] Tobacco smoking status Never [facility] Start: 04-09-2023 End: 04-10-2023 Sex Assigned At Female Shawn Gramajo [facility] End: 03-26-1994 History of tobacco use Current [...] to any clubs or organizations such as bahai groups, unions, fraternal or athletic groups, or [...] Sex Assigned At Not on file N [facility] Functional Status Date Assessment Result Facility 04-18-2022 Functional Status N/A [facility] Clinical Note 05-17-2022 Note Date & Type [...] good condition. CC: Rossana Alicia CNP [facility] Clinical Note 04-18-2022 Note Date & [...] and Brother. Leukem (more content not included)... [facility] Comment on above: Result Comment: Elec tronically Signed By: FRANKLIN CORTEZ, Julian Case.triston\Date and Time Signed: 04/18/22 15:13 EST Evaluation + Plan note Note Date & Type Note Facility Evaluation + Plan note No data available for this section [facility] Discharge instructions Note Date & Type Note Facility Hospital Discharge instructions No data available for this section [facility] Progress note Note Date & Type Note Facility Progress note No data available for this section [facility] Summary Purpose Family History No Family History Records FoundNo Family History Records FoundNo Family History Records Found Advance Directives No Advanced Directives Records FoundNo Advanced Directives Records FoundNo Advanced Directives Records Found Additional Source Comments Patient Care team informatio n (unrecognized section and content) 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 pital DATE CREATED AUTHOR AUTHOR'S ORGANIZ ATION 12/07/2023 [facility] dical Specialists [facility] FOR RECORDS PERTAINING TO PATIENTS WHO [...] BE BASED ON THE PRIMARY CLINICAL RECORDS. [facility] provides no warranty or guarantee of the accuracy or completeness of information in this document.
[2023-12-14 10:05] LABS: Basophils Percent Auto 0.5 % (0.2-2.0); Eosinophils Absolute Auto 0.1 10^3/uL (0.0-0.7); Eosinophils Percent Auto 1.4 % (0.9-7.0); Hematocrit 43.2 % (36.0-48.0); Hemoglobin 13.4 g/dL (12.0-16.0); Immature Granulocytes Abs Auto 0.07 10^3/uL (0.00-0.03); Immature Granulocytes Pct Auto 1.2 % (0.0-0.5); Lymphocytes Absolute Auto 1.8 10^3/uL (1.2-3.8); Lymphocytes Percent Auto 31.6 % (20.5-60.0); Mean Corpuscular Volume 90.4 fL (81.0-99.0); Mean Platelet Volume 8.5 fL (9.5-13.5); Monocytes Absolute Auto 0.3 10^3/uL (0.3-0.8); Monocytes Percent Auto 5.8 % (1.7-12.0); Neutrophils Absolute Auto 3.4 10^3/uL (1.4-6.5); Neutrophils Percent Auto 59.5 % (43.0-75.0); Platelet Count 255 10^3/uL (150-450); Red Blood Count 4.78 10^6/uL (4.20-5.40); Red Cell Distribution Width 14.4 % (11.0-15.0); White Blood Count 5.7 10^3/uL (4.0-11.0)
[2023-12-14 10:08] LABS: Bilirubin Urine NEGATIVE (NEGATIVE); Blood Urine NEGATIVE (NEGATIVE); Clarity Urine CLEAR (CLEAR); Color Urine LT. YELLOW (YELLOW); Glucose Urine UA >=1000 mg/dL (NEGATIVE); Ketones Urine NEGATIVE (NEGATIVE); Leukocyte Esterase Urine NEGATIVE (NEGATIVE); Nitrite Urine NEGATIVE (NEGATIVE); Protein Urine NEGATIVE (NEG/TRACE); Urobilinogen Urine 0.2 EU/dL (0.2-1.0)
[2023-12-14 10:13] LABS: Urine Microscopic Indicated NO
[2023-12-14 10:19] LABS: Creatinine Urine Random 43.71 mg/dL (20.00-300.00); Microalbumin Urine Random <1.3 mg/dL (<=30.0)
[2023-12-14 10:49] LABS: Estimated Average Glucose 246 mg/dL; Glycohemoglobin A1C 10.2 % (4.5-6.2)
[2023-12-14 13:32] LABS: Alanine Aminotransferase 33 U/L (14-59); Albumin Globulin Ratio 0.7; Alkaline Phosphatase 153 U/L (46-116); Anion Gap 10.1; Aspartate Amino Transferase 19 U/L (15-37); BUN Creatinine Ratio 25.4; Bilirubin Total 0.4 mg/dL (0.2-1.0); Calcium 9.5 mg/dL (8.5-10.1); Carbon Dioxide 32.6 mmol/L (21.0-32.0); Chloride 101 mmol/L (98-107); Chol HDL Ratio 3.1; Cholesterol 123 mg/dL (<=200); Estimated GFR (African America >60 (>=60); Estimated GFR (Non-African Ame >60 (>=60); Globulin 4.1 g/dL; Glucose 263 mg/dL (74-106); HDL Cholesterol 40 mg/dL (40-60); Potassium 3.7 mmol/L (3.5-5.1); Sodium 140 mmol/L (136-145); Total Protein 7.1 g/dL (6.4-8.2); Triglycerides 244 mg/dL (<=150); VLDL CHOLESTEROL 48.8 mg/dL
== END 2023-12-14 09:44 | disposition home or self-care (01) ==
LOC: LAB 09:45
PROVIDERS: PCP Nurse Practitioner; Visit Provider Nurse Practitioner
DX: E78.2 Mixed hyperlipidemia (principal); I10 Essential (primary) hypertension; E11.9 Type 2 diabetes mellitus without complications
CPT/HCPCS: 36415; 80053; 80061; 81003; 82043; 82570; 83036; 85025

== ENCOUNTER 2024-03-18 10:08 | Outpatient (OUT) | payer MEDICARE, SELFPAY ==
--- OUTSIDE RECORDS SUMMARY | 2024-03-18 10:12 | XMS_ITS | CCD ---
Author Organization [facility] Care Team Providers Care Teacher Public Health Name Role Phone ROSSANA ALICIA Primary Care Physician Julian BONILLA Attending Unavailable NILLJulian Attending Unavailable AICHALFONZO, ROSSANA Glass Referring Unavailable NILJulian Khoury Attending Unavailable NILJulian Khoury Attending Unavailable AICHHOLZ, ROSSANA J Referring Unavailable AICHHOLZ, SAP PPM CONSULTANT ROSSANA Admitting Unavailable AICHHOLZ, SAP PPM CONSULTANT ROSSANA Attending Unavailable AICHHOLZ, SAP PPM CONSULTANT ROSSANA Consulting Unavailable AICHHOLZ, SAP PPM CONSULTANT ROSSANA Primary Care Unavailable NILL ., DR GUERRA Attending Unavailable NILL ., DR GUERRA Consulting Unavailable NILL ., DR GUERRA Admitting Unavailable AICHHOLZ, SAP PPM CONSULTANT ROSSANA Primary Care Unavailable GURPREET II, PHILIP Consulting Unavailable CIERRA MAGANA Consulting Unavailable AICHHOLZ, SAP PPM CONSULTANT ROSSANA Admitting Unavailable AICHHOLZ, SAP PPM CONSULTANT ROSSANA Attending Unavailable AICHHOLZ, SAP PPM CONSULTANT ROSSANA Consulting Unavailable AICHHOLZ, SAP PPM CONSULTANT ROSSANA Primary Care Unavailable AICHHOLZ, SAP PPM CONSULTANT ROSSANA Primary Care Unavailable AICHHOLZ, SAP PPM CONSULTANT ROSSANA Admitting Unavailable AICHHOLZ, SAP PPM CONSULTANT ROSSANA Attending Unavailable AICHHOLZ, SAP PPM CONSULTANT ROSSANA Consulting Unavailable AICHHOLZ, SAP PPM CONSULTANT ROSSANA Primary Care Unavailable BOBBY, DR RUDDY Nguyen Consulting Unavailable AICHHOLZ, SAP PPM CONSULTANT ROSSANA Admitting Unavailable AICHHOLZ, SAP PPM CONSULTANT ORSSANA Attending Unavailable AICHHOLZ, SAP PPM CONSULTANT ROSSANA Consulting Unavailable Amelia CORTEZ, Kuldip Primary Care Provider Kuldip Cisneros MD Primary Care Provider [phone] Aichholz PULLMAN CAR REPAIRER, Rossana Unavailable Amelia CORTEZ, Kuldip Unavailable AICHHOLZ, ROSSANA Attending Unavailable AICHHOLZ, ROSSANA Attending Unavailable AICHMOISEZ, ROSSANA Attending Unavailable AICHHOLZ, ROSSANA Attending Unavailable AICHHOLZ, ROSSANA Attending Unavailable AICHHOLZ, ROSSANA Attending Unavailable AICHHOLZ, ROSSANA Attending Unavailable AICHHOLZ, ROSSANA Attending Unavailable Allergies Allergy Classification Reported Allergen(s) Allergy Type Date of Onset Reaction(s) Facility (15 sources) Cefaclor; Translations: [cefaclor] Drug Allergy 9 Abnormal breathing (finding), Hives, Shortness of breath [facility] (3 sources) Penicillin; Translations: [penicillin] Drug Allergy Weal (disorder), Abnormal breathing (finding) [facility] (3 sources) Streptococcus pneumoniae type 1 [...] vaccine] Drug Allergy Dyspnea (finding), Weal (disorder) [facility] [place] (1 source) Cefaclor Drug Allergy 4 [facility] (1 source) Penicillins Drug allergy (disorder) 4 [facility] (1 source) Pneumovax 23 Drug allergy (disorder) 4 [facility] (12 sources) Penicillins Drug Allergy 3 Hives, Shortness of breath [facility] (12 sources) Pneumococcal vaccine Drug Allergy 3 Hives, Shortness of breath [facility] Medications Current Medications Medication Drug Class(es) Dates Sig (Normalized) Sig (Original) [id number] 200 actuat albuterol 0.09 mg/actuat metered dose inhaler (13 sources) beta2-Adrenergic Agonist Start: 08-16-2023 End: 01-24-2024 take 2 puff(s) by inhalation every six hours for wheezing albuterol HFA 90 mcg/act inhaler Indications: Moderate persistent asthma without complication (CMS/HCC) Inhale 2 puffs every 6 (six) hours if needed for wheezing or shortness of breath 17 g 4 12/25/2023 Active Start: 03-05-2023 End: 06-03-2023 take 2 puff(s) by inhalation every six hours for wheezing albuterol HFA 90 mcg/act inhaler Indications: Moderate persistent asthma without complication (CMS/HCC) Inhale 2 puffs every 6 (six) hours if needed for wheezing 18 g 1 03/05/2023 06/03/2023 Active amLODIPine 2.5 mg oral tablet (18 sources) Dihydropyridine Calcium Channel Miriam Start: 07-05-2023 End: 06-04-2024 take 1 tablet by mouth once daily amLODIPine (Norvasc) 2.5 MG tablet Indications: Primary hypertension (CMS/HCC) Take 1 tablet (2.5 mg) by mouth Daily Take by mouth Daily. 90 tablet 1 12/05/2023 03/04/2024 Active Start: 02-26-2023 End: 05-27-2023 take 1 tablet by mouth in the morning amLODIPine (Norvasc) 2.5 MG tablet Indications: Primary hypertension (CMS/HCC) Take 1 tablet (2.5 mg) by mouth in the morning. Take by mouth Daily.. 90 tablet 1 02/26/2023 05/27/2023 Active Start: 03-13-2019 Norvasc 2.5 mg Tab Refills(s) 0 Start Date: 03/13/19 Status: Ordered aspirin 81 mg delayed release oral tablet (18 sources) Platelet Aggregation Inhibitor, Nonsteroidal Anti-inflammatory Drug Start: 11-05-2023 End: 06-04-2024 take 1 tablet by mouth once daily aspirin (Aspirin Low Dose) 81 MG EC tablet Indications: Type 2 diabetes mellitus without complication, without long-term current use of insulin (CMS/HCC) Take 1 tablet (81 mg) by mouth Daily 90 tablet 3 12/05/2023 03/04/2024 Active Start: 02-26-2023 End: 05-27-2023 take 1 tablet [...] Status: Ordered atorvastatin 80 mg oral tablet (18 sources) HMG-CoA Reductase Inhibitor Start: 07-05-2023 End: 06-04-2024 take 1 tablet by mouth in the evening atorvastatin (Lipitor) 80 MG tablet Indications: Type 2 diabetes mellitus without complication, without long-term current use of insulin (CMS/HCC) , Mixed hyperlipidemia (CMS/HCC) Take 1 tablet (80 mg) by mouth in the evening 90 tablet 1 12/05/2023 03/04/2024 Active Start: 02-26-2023 End: 05-27-2023 take 1 tablet [...] Ordered cetirizine hydrochloride 10 mg oral tablet (16 sources) Histamine-1 Receptor Antagonist Start: 07-05-2023 End: 06-04-2024 take 1 tablet by mouth once daily cetirizine (ZyrTEC) 10 MG tablet Indications: Environmental and seasonal allergies Take 1 tablet (10 mg) by mouth Daily 90 tablet 1 12/05/2023 03/04/2024 Active Start: 02-26-2023 End: 05-27-2023 take 1 tablet by mouth in the morning cetirizine (ZyrTEC) 10 MG tablet Indications: Environmental and seasonal allergies Take 1 tablet (10 mg) by mouth in the morning. 90 tablet 1 02/26/2023 05/27/2023 Active chondroitin sulfates 400 mg / glucosamine sulfate 500 mg oral tablet (11 sources) End: 03-06-2024 take 1 tablet by mouth in the morning, then take 1 tablet by mouth in the evening, then take 1 tablet by mouth at bedtime glucosamine-chondroitin 500-400 MG tablet Take 1 tablet by mouth in the morning and 1 tablet in the evening and 1 tablet before bedtime. 03/06/2024 Discontinued (Therapy completed) Continuous Glucose Building Construction Contractor (Dexcom G7 Building Construction Contractor) device (6 sources) Start: 03-06-2024 End: 03-06-2024 Continuous Glucose Building Construction Contractor (Dexcom G7 Building Construction Contractor) device Indications: Type 2 diabetes mellitus without complication, without long-term current use of insulin (CMS/HCC) , Hypoglycemia 1 each Daily 1 each 03/06/2024 03/06/2024 Discontinued (Reorder) Start: 03-06-2024 End: 03-06-2025 Continuous Glucose Building Construction Contractor (Dexcom G7 Building Construction Contractor) device Indications: Type 2 diabetes mellitus without complication, without long-term current use of insulin (CMS/HCC) , Hypoglycemia 1 each Daily 1 each 03/06/2024 03/06/2025 Active End: 03-06-2024 Continuous Glucose Building Construction Contractor (Dexcom G7 Building Construction Contractor) device 1 each Daily 03/06/2024 Discontinued (Reorder) Continuous Glucose Sensor (Dexcom G7 Sensor) misc (4 sources) Start: 03-06-2024 End: 04-05-2024 Continuous Glucose Sensor (D excom G7 Sensor) misc Indications: Type 2 diabetes mellitus without complication, without long-term current use of insulin (CMS/HCC) , Hypoglycemia 1 each Daily 3 each 11 03/06/2024 04/05/2024 Active End: 03-06-2024 Continuous Glucose Sensor (D excom G7 Sensor) misc 1 each Daily 03/06/2024 Discontinued (Reorder) dapagliflozin 10 mg oral tablet (16 sources) Sodium-Glucose Cotransporter 2 Inhibitor Start: 08-16-2023 End: 06-04-2024 take 1 tablet by mouth once daily dapagliflozin (Farxiga) 10 MG Indications: Type 2 diabetes mellitus without complication, without long-term current use of insulin ([facility]) Take 1 tablet (10 mg) by mouth Daily 90 tablet 1 12/05/2023 03/04/2024 Active 0.5 ml dulaglutide 1.5 mg/ml auto-injector [...] complication, without long-term current use of insulin ([facility]) Inject 3 mg under the skin 1 (one) time per week 12 each 1 02/26/2023 05/21/2023 Active fluticasone propionate 0.05 mg/actuat metered dose nasal spray (12 sources) Corticosteroid Start: 10-04-2023 End: 03-06-2024 take 2 spray(s) nasal route once daily fluticasone (Flonase) 50 MCG/ACT nasal spray Indications: Chronic sinusitis of both maxillary sinuses Administer 2 sprays into each nostril Daily Shake gently. Before first use, prime pump. After use, clean tip and replace cap. 48 g 1 12/05/2023 03/04/2024 Active 30 actuat fluticasone furoate 0.2 mg/actuat / vilanterol 0.025 mg/actuat dry powder inhaler (17 sources) Corticosteroid, beta2-Adrenergic Agonist Start: 07-05-2023 End: 05-26-2024 take 1 puff(s) by mouth once daily Fluticasone Furoate-Vilantero l (Breo Ellipta) 200-25 MCG/ACT aerosol powder Indications: Moderate persistent asthma without complication (CMS/[facility]) Inhale 1 puff Daily Rinse mouth after use 3 each 1 12/05/2023 03/04/2024 Active Start: 02-26-2023 End: 05-27-2023 take 1 puff(s) [...] Status: Ordered hydroCHLOROthiazide 25 mg oral tablet (13 sources) Thiazide Diuretic Start: 01-17-2024 End: 06-04-2024 take 1 tablet by mouth once daily hydroCHLOROthiazide (HYDRODiuril) 25 MG tablet Indications: Primary hypertension (CMS/HCC) Take 1 tablet (25 mg) by mouth Daily 90 tablet 1 03/06/2024 06/04/2024 Active Start: 07-05-2023 End: 12-05-2023 take 1 tablet by mouth once daily hydroCHLOROthiazide (HYDRODiuril) 25 MG tablet Indications: Primary hypertension (CMS/HCC) Take 1 tablet (25 mg) by mouth Daily 90 tablet 1 07/05/2023 12/05/2023 Discontinued Start: 02-26-2023 End: 05-27-2023 take 1 tablet by mouth in the morning hydroCHLOROthiazide (HYDRODiuril) 25 MG tablet Indications: Primary hypertension (CMS/HCC) Take 1 tablet (25 mg) by mouth in the morning. 90 tablet 1 02/26/2023 05/27/2023 Active Start: 03-13-2019 hydrochlorothi azide 25 mg oral tablet Refills(s) 0 Start Date: 03/13/19 Status: Ordered metFORMIN hydrochloride 500 mg oral tablet (18 sources) Biguanide Start: 07-05-2023 End: 06-04-2024 take 1 tablet by mouth in the morning metFORMIN (Glucophage) 500 MG tablet Indications: Type 2 diabetes mellitus without complication, without long-term current use of insulin (CMS/HCC) Take 1 tablet (500 mg) by mouth in the morning and 1 tablet (500 mg) in the evening. Take with meals. 180 tablet 1 12/05/2023 03/04/2024 Active Start: 02-26-2023 End: 05-27-2023 take 1 tablet [...] Ordered metoprolol tartrate 50 mg oral tablet (18 sources) beta-Adrenergic Miriam Start: 07-05-2023 End: 06-04-2024 take 1 tablet by mouth in the morning metoprolol tartrate (Lopressor) 50 MG tablet Indications: Primary hypertension (CMS/HCC) Take 1 tablet (50 mg) by mouth in the morning and 1 tablet (50 mg) before bedtime. 180 tablet 1 12/05/2023 03/04/2024 Active Start: 02-26-2023 End: 05-27-2023 take 1 tablet [...] (1 source) Polyene Antifungal Start: 12-12-2022 Nyamyc [id number] UNIT/GM powder Apply 1 application topically in the morning and 1 application before bedtime. to affected area. 0 12/12/2022 Active nystatin topical 100,000 units/g powder (2 sources) Start: 08-15-2018 nystatin topical 100,000 units/g powder danny, Topical, TID, Refill(s) 0 Start Date: 08/15/18 Status: Ordered omeprazole 20 mg delayed release oral capsule (16 sources) Proton Pump Inhibitor Start: 07-05-2023 End: 06-04-2024 take 1 capsule by mouth before mealtime omeprazole (PriLOSEC) [address] capsule Indications: Gastroesophageal reflux disease, unspecified whether esophagitis present Take 1 capsule (20 mg) by mouth in the morning. Take before meals. 90 capsule 1 12/05/2023 03/04/2024 Active Start: 02-26-2023 End: 05-27-2023 take 1 capsule [...] pill. 30 tablet 1 04/10/2023 05/10/2023 Active Tirzepatide (Mounjaro) 2.5 MG/0.5ML solution pen-injector (6 sources) End: 01-17-2024 Tirzepatide (Mounjaro) 2.5 MG/0.5ML solution pen-injector Indications: Type 2 Diabetes Mellitus Inject 2.5 mg under the skin every 7 (seven) days 01/17/2024 Discontinued (Therapy completed) Tirzepatide (Nancy njaro) 2.5 MG/0.5ML solution pen-injector Indications: Type 2 Diabetes Mellitus Inject 2.5 mg under the skin every 7 (seven) days Active Tirzepatide (Mounjaro) 5 MG/0.5ML solution pen-injector (7 sources) Start: 12-18-2023 End: 03-06-2024 Tirzepatide (Mounjaro) 5 MG/0.5ML solution pen-injector Indications: Type 2 diabetes mellitus without complication, without long-term current use of insulin (CMS/HCC) Inject 5 mg under the skin every 7 (seven) days 6 mL 1 12/18/2023 03/06/2024 Discontinued (Therapy completed) Start: 12-18-2023 End: 03-11-2024 Tirzepatide (Mounjaro) 5 MG/ 0.5ML solution pen-injector Indications: Type 2 diabetes mellitus without complication, without long-term current use of insulin (CMS/HCC) Inject 5 mg under the skin every 7 (seven) days 6 mL 1 12/18/2023 03/11/2024 Active Tirzepatide (Mounjaro) 7.5 MG/0.5ML solution auto-injector (2 sources) Start: 03-06-2024 End: 05-29-2024 Tirzepatide (Mounjaro) 7.5 MG/0.5ML solution auto-injector Indications: Type 2 diabetes mellitus without complication, without long-term current use of insulin (CMS/HCC) Inject 7.5 mg under the skin every 7 (seven) days 12 mL 1 03/06/2024 05/29/2024 Active Completed/Discontinued Medications Medication Drug Class(es) Dates Sig (Normalized) Sig (Original) doxycycline hyclate 100 mg oral tablet (3 sources) Tetracycline-cla ss Drug Start: 10-04-2023 End: 12-05-2023 doxycycline (Vibra-Tabs) 100 MG tablet Indications: Chronic sinusitis of both maxillary sinuses 2 pills day #1, then 1 pill daily for 20 days Take with a full glass of water and do not lie down for at least 30 minutes after. 22 tablet 10/04/2023 12/05/2023 Discontinued (Therapy completed) semaglutide 7 mg oral tablet (6 sources) Start: 09-04-2023 End: 12-05-2023 take 1 tablet by mouth before mealtime semaglutide (Rybelsus) 7 MG tablet Indications: Type 2 diabetes mellitus without complication, without long-term current use of insulin (CMS/HCC) Take 1 tablet (7 mg) by mouth in the morning. Take before meals. 90 tablet 1 09/04/2023 12/05/2023 Discontinued (Ineffective) End: 12-05-2023 take 1 tablet by mouth before mealtime semaglutide (Rybelsus) 3 MG tablet Indications: Type 2 Diabetes Mellitus Take 3 mg by mouth in the morning. Take before meals. 12/05/2023 Discontinued Problems Active Problems Problem Classification Problem Date Documented Date Episodic/Chronic Asthma (20 sources) Asthma; Translations: [Moderate asthma] Onset: 02-26-2023 03-13-2019 Chronic Chronic obstructive pulmonary disease and bronchiectasis (18 sources) Pulmonary emphysema; Translations: [Emphysema, unspecified] Onset: 12-23-2021 03-13-2019 Chronic Diabetes mellitus with complications (14 sources) Type 2 diabetes mellitus with diabetic peripheral angiopathy without gangrene; Translations: [Type 2 diabetes mellitus with peripheral angiopathy] Onset: 05-23-2022 12-05-2023 Chronic Diabetes mellitus without complication (20 sources) Diabetes mellitus; Translations: [Type 2 diabetes mellitus without complications] Onset: 12-21-2021 03-13-2019 Chronic Disorders of lipid metabolism (19 sources) Hyperlipidemia; Translations: [Hyperlipidemia, unspecified] Onset: 05-23-2022 04-14-2022 Chronic Esophageal disorders (4 sources) Gastroesophageal reflux disease; Translations: [Gastro-esophageal reflux disease without esophagitis] 03-06-2024 Chronic Essential hypertension (20 sources) Benign essential hypertension; Translations: [Essential (primary) hypertension] Onset: 05-23-2022 Resolved: 12-05-2023 08-15-2018 Chronic Immunizations and screening for infectious disease (4 sources) Needs influenza immunization; Translations: [Encounter for immunization] Onset: 03-06-2024 03-06-2024 Episodic Mood disorders (14 sources) Mild major depression, single episode; Translations: [Major depressive disorder, single episode, mild] Onset: 04-10-2023 04-10-2023 Chronic Other aftercare (1 source) halfway (current) use of aspirin; Translations: [[facility] CURRENT USE OF ASPIRIN] Onset: 05-23-2022 Episodic Other aftercare (1 source) buttermaker continuous churn (current) use of oral hypoglycemic drugs; Translations: [[facility] USE ORAL HYPOGLYCEMIC DX] Onset: 05-23-2022 Episodic [...] OF TRANSVERSE COLON] Onset: 05-23-2022 Episodic Other endocrine disorders (4 sources) Hypoglycemia; Translations: [Hypoglycemia, unspecified] Onset: 03-06-2024 03-06-2024 Chronic Other nutritional; endocrine; and metabolic disorders (2 [...] Chronic Other nutritional; endocrine; and metabolic disorders (12 sources) Body mass index 40+ - severely obese; Translations: [Body mass index (BMI) 40.0-44.9, adult] Onset: 04-10-2023 04-10-2023 Chronic Other nutritional; endocrine; and metabolic disorders (13 sources) Body mass index 30+ - obesity; Translations: [Obesity, unspecified] Onset: 08-16-2023 08-16-2023 Chronic Other upper respiratory disease (16 sources) Allergic disposition; Translations: [Other allergic rhinitis] Onset: 02-26-2023 02-26-2023 Chronic Other upper respiratory disease (2 sources) Hoarse 04-14-2022 Episodic Other upper respiratory infections (13 sources) Chronic bilateral maxillary sinusitis; Translations: [Chronic maxillary sinusitis] Onset: 10-01-2023 10-01-2023 Chronic Peripheral and visceral atherosclerosis (2 sources) Peripheral vascular disease 04-14-2022 Chronic Residual codes; unclassified (14 sources) Sleep apnea; Translations: [Sleep apnea, unspecified] Onset: 04-10-2023 04-14-2022 Chronic Residual codes; unclassified (1 source) Sleep apnea, unspecified; Translations: [SLEEP APNEA UNSPECIFIED] Onset: 05-23-2022 Chronic Residual codes; unclassified (2 sources) Obstructive sleep apnea syndrome; Translations: [Obstructive sleep apnea (adult) (pediatric)] 03-06-2024 Chronic Residual codes; unclassified (2 sources) Edema [...] Date Documented Da te Episodic/Chronic Mood disorders (12 sources) Mood disorders Onset: 04-10-2023 04-10-2023 Mycoses (11 sources) Candidiasis of skin; Translations: [Candidiasis of skin and nail] Onset: 07-03-2023 07-03-2023 Episodic Other nutritional; endocrine; and metabolic disorders (12 sources) Severe obesity; Translations: [Morbid (severe) obesity due to excess calories] Onset: 02-26-2023 Resolved: 08-16-2023 02-26-2023 Chronic Other screening for suspected conditions (not mental disorders or infectious disease) (20 sources) Screening for malignant neoplasm of colon done; Translations: [Encounter for screening for malignant neoplasm of colon] Onset: 04-18-2022 Episodic Other upper respiratory infections (11 sources) Acute frontal sinusitis; Translations: [Acute frontal sinusitis, unspecified] Onset: 09-12-2023 09-12-2023 Episodic Otitis media and related conditions (11 sources) Acute suppurative otitis media without spontaneous rupture of ear drum; Translations: [Acute suppurative otitis media without spontaneous rupture of ear drum, right ear] Onset: 09-12-2023 09-12-2023 Episodic Unclassified (1 source) CONTACT W/AND (SUSP) EXPOS COVID-19; Translations: [CONTACT W/AND (SUSP) EXPOS COVID-19] Onset: 09-01-2021 Results Test Name Value Interpretation Reference Range Facility ALL CBC WITH AUTO DIFFon BASOPHILS ABSOLUTE AUTO 0.0 [facility] Basophils/100 WBC (Bld) 0.5 % 0.2 - 2.0 % [facility] Eosinophils/100 WBC (Bld) 1.4 % 0.9 - 7.0 % [facility] Erythrocyte distribution width (RBC) [Ratio] 14.4 % 11.0 - 15.0 % [facility] Hematocrit (Bld) [Volume fraction] 43.2 % 36.0 - 48.0 % [facility] Hemoglobin (Bld) [Mass/Vol] 13.4 g/dL 12.0 - 16.0 g/dL [facility] IMMATURE GRANULOCYTES ABS AUTO 0.07 High [facility] Immature granulocytes/100 WBC (Bld) 1.2 % High 0.0 - 0.5 % [facility] Interpretation and review of laboratory results Abnormal [facility] LYMPHOCYTES ABSOLUTE AUTO 1.8 [facility] Lymphocytes/100 WBC (Bld) 31.6 % 20.5 - 60.0 % [facility] MCH (RBC) [Entitic mass] 28.0 pg 26.7 - 34.0 pg [facility] MCHC (RBC) [Mass/Vol] 31.0 g/dL 29.9 - 35.2 g/dL [facility] MCV (RBC) [Entitic vol] 90.4 fL 81.0 - 99.0 fL [facility] MONOCYTES ABSOLUTE AUTO 0.3 [facility] Monocytes/100 WBC (Bld) 5.8 % 1.7 - 12.0 % [facility] NEUTROPHILS ABSOLUTE AUTO 3.4 [facility] Neutrophils/100 WBC (Bld) 59.5 % 43.0 - 75.0 % [facility] Platelet mean volume (Bld) [Entitic vol] 8.5 fL Low 9.5 - 13.5 fL [facility] TBH EO # 0.1 [facility] 4[facility]78 [facility] WBC 5.7 [facility] MLR HEMOGLOBIN A1Con 05-08- 024 Glucose [Mass/Vol] 232 mg/dL [facility] HbA1c (Bld) [Mass fraction] 9.7 % High 4.5 - 6.2 % [facility] Comment on above: ADA RECOMMENDED LIMI T 4.0 - 6.0 ADA THERAPEUTIC TARGET < 7.0 ACTION SUGGESTED > 7.0 Interpretation and review of laboratory results Abnormal [facility] MG MAMM SCREEN 3D JOSE CADon 06-07-2022 MG MAMM SCREEN 3D JOSE CAD Patient: JAYE BEAVERS Exam Date: 06/07/2022 : 1955 Gender:F Ordering : RON ALICIA SAP PPM CONSULTANT Admission #: [id number] Family : Order #: [id number] CLICK HERE TO VIEW EXAM RADIOLOGY REPORT [...] skin cancer at age 60. LOCATION: [facility] BREAST COMPOSITION: Scattered areas fibroglandular density. FINDINGS: [...] Deleon MD on 06/07/2022 at 13:35 Normal [facility] Ambulatory Visit Summaryon 0 05-31-2022 Ambulatory Visit [...] of colon Tubular adenoma of colon Normal [facility] General Surgery Office/Clini c Noteon 05-31-2022 [...] Sister. Immunizations Vaccine Date Status Comments SARSCoV2 mRNA([id number]) vac 08/18/2021 Recorded SARS-CoV-2 (COVID-19) mRNA BNT-162b2 vax 01/10/2021 Recorded influenza virus vaccine, inactivated 12/14/2020 Recorded SARS-CoV-2 (COVID-19) mRNA BNT-162b2 vax 06/18/2020 Recorded SARS-CoV-2 (COVID-19) mRNA BNT-162b2 vax 05/29/2020 Recorded 2022-04-18: [id number] influenza virus vaccine, live, trivalent 12/30/2018 Recorded Normal [facility] Comment on above: Result Comment: Elec tronically Signed By: FRANKLIN CORTEZ, Julian Smith\Date and Time Signed: 05/31/22 14:36 EST Reminderson 05-31-2022 Reminders - From: Billie Curtis LPN To: G[facility] - Clinical; Sent: 05/31/2022 16:01:22 EST Show up: 04/16/2027 07:00:00 EST Subject: colonoscopy recall Due Date/Time: 05/17/2027 07:00:00 EST Reminder/Recall Patient is due for colonoscopy 05/17/27 due to history of colonic polyps. Normal [facility] Pathology Noteon 05-19-2022 Pathology Note [id number]:127 Normal [facility] Outside Colonoscopyon 2022 Outside Colonoscopy [id number]:127 Normal [facility] POINT OF CARE GLUCOSEon 04-27 Glucose [Mass/Vol] 176 mg/dL Critically high 74-106 [facility] Comment on above: Performed By: #### P OCGLUC ####[facility] [id number] [id number] Estrella Pre-Certification Formon Pre-Certification Form [id number]:127 Normal [facility] Facesheeton 04-20-2022 Facesheet [id number]#1.00CD:127 [facility] Consent for Procedure/Surger yon 04-19-2022 Consent for Procedure/Surgery [id number]#[id number]:127 Normal [facility] Physician Referralon 023 Physician Referral [id number]#[id number]:127 Normal [facility] Physician Referralon 023 Physician Referral [id number]#1.00CD:127 Normal [facility] MICROALBUMIN URINEon 022 Albumin, Urine <3.0 Normal Not Estab. [facility] Comment on above: Result Comment: Ve rified by repeat analysis Performed By: #### M ALBLC #### [facility] [address] [place] [address] Dr. Aga Estrella CBC AUTO DIFFon 12-21-2021 BASO # 0.0 103/ul Normal 0.0-0.1 [facility] Comment on above: Performed By: #### C BC #### [facility] [address] [place] [address] Dr. Aga Estrella Basophils/100 WBC (Bld) 0.4 % Normal 0.2-2.0 [facility] Comment on above: Performed By: #### C BC #### [facility] [address] [place] [address] Dr. Aga Estrella EO # 0.1 103/ul Normal 0.0-0.7 [facility] Comment on above: Performed By: #### C BC #### [facility] [address] [place] [address] Dr. Aga Estrella Eosinophils/100 WBC (Bld) 1.6 % Normal 0.9-7.0 [facility] Comment on above: Performed By: #### C BC #### [facility] [address] [place] [address] Dr. Aga Estrella Erythrocyte distribution width (RBC) [Ratio] 14.2 % Normal 11.0-15.0 [facility] Comment on above: Performed By: #### C BC #### [facility] [address] [place] [address] Dr. Aga Estrella Hematocrit (Bld) [Volume fraction] 42.1 % Normal 36.0-48.0 [facility] Comment on above: Performed By: #### C BC #### [facility] [address] [place] [address] Dr. Aga Estrella Hemoglobin (Bld) [Mass/Vol] 13.1 g/dL Normal 12.0-16.0 [facility] Comment on above: Performed By: #### C BC #### [facility] [address] [place] [address] Dr. Aga Estrella IG # 0.02 10e3/ul Normal 0.00-0.03 [facility] Comment on above: Performed By: #### C BC #### [facility] [address] [place] [address] Dr. Aga Estrella IG % 0.4 % Normal 0.0-0.5 [facility] Comment on above: Performed By: #### C BC #### [facility] [address] [place] [address] Dr. Aga Estrella LYMPH # 1.7 103/ul Normal 1.2-3.8 [facility] Comment on above: Performed By: #### C BC #### [facility] [address] [place] [address] Dr. Aga Estrella Lymphocytes/100 WBC (Bld) 29.4 % Normal 20.5-60.0 [facility] Comment on above: Performed By: #### C BC #### [facility] [address] [place] [address] Dr. Aga Estrella MANUAL DIFF REQ NO Normal [facility] Comment on above: Performed By: #### C BC #### [facility] [address] [place] [address] Dr. Aga Estrella MCH (RBC) [Entitic mass] 28.8 pg Normal 26.7-34.0 [facility] Comment on above: Performed By: #### C BC #### [facility] [address] [place] [address] Dr. Aga Estrella MCHC (RBC) [Mass/Vol] 31.1 g/dL Normal 29.9-35.2 [facility] Comment on above: Performed By: #### C BC #### [facility] [address] [place] [address] Dr. Aga Estrella MCV (RBC) [Entitic vol] 92.5 fL Normal 81.0-99.0 [facility] Comment on above: Performed By: #### C BC #### [facility] [address] [place] [address] Dr. Aga Estrella MONO # 0.4 103/ul Normal 0.3-0.8 [facility] Comment on above: Performed By: #### C BC #### [facility] [address] [place] [address] Dr. Aga Estrella Monocytes/100 WBC (Bld) 6.4 % Normal 1.7-12.0 [facility] Comment on above: Performed By: #### C BC #### [facility] [address] [address] [address] Aga Estrella NEUT # 3.5 103/ul Normal 1.4-6.5 [facility] Comment on above: Performed By: #### C BC #### [facility] [address] [place] [address] Dr. Aga Estrella Neutrophils/100 WBC (Bld) 61.8 % Normal 43.0-75.0 [facility] Comment on above: Performed By: #### C BC #### [facility] [address] [place] [address] Dr. Aga Estrella Platelet mean volume (Bld) [Entitic vol] 10.2 fL Normal 9.5-13.5 [facility] Comment on above: Performed By: #### C BC #### [facility] [address] [place] [address] Dr. Aga Estrella PLT 195 103/ul Normal 150-450 [facility] Comment on above: Performed By: #### C BC #### [facility] [address] [place] [address] Dr. Aga Estrella RBC 4.55 106/ul Normal 4.20-5.40 [facility] Comment on above: Performed By: #### C BC #### [facility] [address] [place] [address] Dr. Aga Estrella WBC 5.7 103/ul Normal 4.0-11.0 [facility] Comment on above: Performed By: #### C BC #### [facility] [address] [place] [address] Dr. Aga Estrella GLYCOHEMOGLOBIN A1Con 2021 ADA RECOMMENDATION SEE BELOW Normal [facility] Comment on above: Result Comment: ADA RECOMMENDED LIMIT 4.0 - 6.0 ADA THERAPEUTIC TARGET < 7.0 ACTION SUGGESTED > 7.0 Performed By: #### A 1C #### [facility] [address] [address] [address] Aga Estrella Glucose [Mass/Vol] 192 mg/dL Normal [facility] Comment on above: Performed By: #### A 1C #### [facility] [address] [address] [address] gAa Estrella HbA1c (Bld) [Mass fraction] 8.3 % Critically high 4.5-6.2 [facility] Comment on above: Performed By: #### A 1C #### [facility] [address] [place] [address] Dr. Aga Estrella LIPID PROFILEon 12-21-2021 CHOL-HDL RATIO NORM SEE BELOW Normal [facility] Comment on above: Result Comment: 3.3 - 4.4 LOW RISK 4.4 - 7.1 AVERAGE RISK 7.1 - 11.0 MODERATE RISK >11.0 HIGH RISK Performed By: #### L IPID, CMP #### [facility] [address] [place] [address] Dr. Aga Estrella Cholesterol [Mass/Vol] 123 mg/dL Normal <=200 [facility] Comment on above: Performed By: #### L IPID, CMP #### [facility] [address] [place] [address] Dr. Aga Estrella Cholesterol in HDL [Mass/Vol] 51 mg/dL Normal 40-60 [facility] Comment on above: Performed By: #### L IPID, CMP #### [facility] [address] [address] [address] Aga Estrella Cholesterol in LDL [Mass/Vol] 45.8 mg/dL Normal [facility] Comment on above: Performed By: #### L IPID, CMP #### [facility] [address] [place] [address] Dr. Aga Estrella Cholesterol.total/ Cholesterol in HDL [Mass ratio] 2.4 {ratio} Normal [facility] Comment on above: Performed By: #### L IPID, CMP #### [facility] [address] [place] [address] Dr. Aga Estrella HDL NORMAL > or = 60 mg/dl - LO W CARDIOVASCULAR RISK <40 mg/dl - HIGH CARDIOVASCULAR RISK Normal [facility] Comment on above: Performed By: #### L IPID, CMP #### [facility] [address] [address] [address] Aga Estrella LDL CALC NORMAL SEE BELOW Normal [facility] Comment on above: Result Comment: <100 mg/dl OPTIMAL 100 - 129 mg/dl NEAR OR ABOVE OPTIMAL 130 - 159 mg/dl BORDERLINE HIGH 160 - 189 mg/dl HIGH >190 mg/dl VERY HIGH Performed By: #### L IPID, CMP #### [facility] [address] [address] [address] Aga Estrella Triglyceride [Mass/Vol] 131 mg/dL Normal <=150 [facility] Comment on above: Performed By: #### L IPID, CMP #### [facility] [address] [address] [address] Aga Estrella VLDL CALC 26.2 mg/dL Normal [facility] Comment on above: Performed By: #### L IPID, CMP #### [facility] [address] [address] [address] Aga Estrella PROF 14(COMP METB)on 022 Albumin [Mass/Vol] 3.5 g/dL Normal 3.4-5.0 [facility] Comment on above: Performed By: #### L IPID, CMP #### [facility] [address] [address] [address] Aga Estrella Albumin/Globulin [Mass ratio] 1.0 {ratio} Normal [facility] Comment on above: Performed By: #### L IPID, CMP #### [facility] [address] [address] [address] Aga Estrella ALP [Catalytic activity/Vol] 147 U/L Critically high 46-116 [facility] Comment on above: Performed By: #### L IPID, CMP #### [facility] [address] [address] [address] Aga Estrella ALT [Catalytic activity/Vol] 42 U/L Normal 14-59 [facility] Comment on above: Performed By: #### L IPID, CMP #### [facility] [address] [address] [address] Aga Estrella Anion gap [Moles/Vol] 12.2 mmol/L Normal [facility] Comment on above: Performed By: #### L IPID, CMP #### [facility] [address] [address] [address] Aga Estrella AST [Catalytic activity/Vol] 32 U/L Normal 15-37 [facility] Comment on above: Performed By: #### L IPID, CMP #### [facility] [address] [address] [address] Aga Estrella Bilirubin [Mass/Vol] 0.3 mg/dL Normal 0.2-1.0 [facility] Comment on above: Performed By: #### L IPID, CMP #### [facility] [address] [address] [address] Aga Estrella Calcium [Mass/Vol] 9.1 mg/dL Normal 8.5-10.1 [facility] Comment on above: Performed By: #### L IPID, CMP #### [facility] [address] [address] [address] Aga Estrella Chloride [Moles/Vol] 103 mmol/L Normal 98-107 [facility] Comment on above: Performed By: #### L IPID, CMP #### [facility] [address] [address] [address] Aga Estrella CO2 [Moles/Vol] 29.9 mmol/L Normal 21.0-32.0 [facility] Comment on above: Performed By: #### L IPID, CMP #### [facility] [address] [address] [address] Aga Estrella Creatinine [Mass/Vol] 0.65 mg/dL Normal 0.55-1.02 [facility] Comment on above: Performed By: #### L IPID, CMP #### [facility] [address] [address] [address] Aga Estrella EGFR-AF MALAWIAN >60 Normal >=60 [facility] Comment on above: Performed By: #### L IPID, CMP #### [facility] [address] [address] [address] Aga Estrella EGFR-NON AF MALAWIAN >60 Normal >=60 [facility] Comment on above: Performed By: #### L IPID, CMP #### [facility] [address] [address] [address] Aga Estrella Globulin (S) [Mass/Vol] 3.6 g/dL Normal [facility] Comment on above: Performed By: #### L IPID, CMP #### [facility] [address] [address] [address] Aga Estrella Glucose [Mass/Vol] 156 mg/dL Critically high 74-106 [facility] Comment on above: Performed By: #### L IPID, CMP #### [facility] [address] [address] [address] Aga Estrella Potassium [Moles/Vol] 4.1 mmol/L Normal 3.5-5.1 [facility] Comment on above: Performed By: #### L IPID, CMP #### [facility] [address] [address] [address] Aga Estrella Protein [Mass/Vol] 7.1 g/dL Normal 6.4-8.2 [facility] Comment on above: Performed By: #### L IPID, CMP #### [facility] [address] [address] [address] Aga Estrella Sodium [Moles/Vol] 141 mmol/L Normal 136-145 [facility] Comment on above: Performed By: #### L IPID, CMP #### [facility] [address] [address] [address] Aga Estrella Urea nitrogen [Mass/Vol] 13.0 mg/dL Normal 7.0-18.0 [facility] Comment on above: Performed By: #### L IPID, CMP #### [facility] [address] [address] [address] Aga Estrella Urea nitrogen/Creatinin e [Mass ratio] 20.0 mg/mg Normal [facility] Comment on above: Performed By: #### L IPID, CMP #### [facility] [address] [address] [address] Aga Estrella UA RANDOM W/MICROSCOPICon BACTERIA NONE SEEN Normal NONE SEEN [facility] Comment on above: Performed By: #### U AMIC ####[facility] [address] [address]Dr. Aga Estrella Bilirubin Ql (U) Negative Normal NEGATIVE [facility] Comment on above: Performed By: #### U AMIC ####[facility] [address] [address]Dr. Aga Estrella CAST NONE SEEN Normal NONE SEEN [facility] Comment on above: Performed By: #### U AMIC ####[facility] [address] [address]Dr. Aga Estrella Clarity (U) CLEAR Normal CLEAR [facility] Comment on above: Performed By: #### U AMIC ####[facility] [address] [address]Dr. Aga Estrella Color (U) LT. YELLOW Normal YELLOW [facility] Comment on above: Performed By: #### U AMIC ####[facility] [address] [address]Dr. Aga Estrella Crystals LM Nom (Urine sed) NONE SEEN Normal NONE SEEN [facility] Comment on above: Performed By: #### U AMIC ####[facility] [address] [address]Dr. gAa Estrella Epithelial cells LM Ql (Urine sed) RARE Normal NONE SEEN /RARE [facility] Comment on above: Performed By: #### U AMIC ####[facility] [address] [place], [place] [address]Dr. Aga Estrella Glucose Ql (U) Negative Normal NEGATIVE [facility] Comment on above: Performed By: #### U AMIC ####[facility] [address] [address]Dr. Aga Estrella Hemoglobin Ql (U) Negative Normal NEGATIVE [facility] Comment on above: Performed By: #### U AMIC ####[facility] [address] [address]Dr. Aga Estrella Ketones Ql (U) Negative Normal NEGATIVE [facility] Comment on above: Performed By: #### U AMIC ####[facility] [address] [address]Dr. Aga Estrella LEUKOCYTES Negative Normal NEGATIVE [facility] Comment on above: Performed By: #### U AMIC ####[facility] [address] [address]Dr. Aga Estrella MUCOUS NONE SEEN Normal NONE SEEN [facility] Comment on above: Performed By: #### U AMIC ####[facility] [address] [place], [place] [address]Dr. Aga Estrella Nitrite Ql (U) Negative Normal NEGATIVE [facility] Comment on above: Performed By: #### U AMIC ####[facility] [address] [place], [place] [address]Dr. Aga Estrella pH (U) 6.0 [pH] Normal 5-9 [facility] Comment on above: Performed By: #### U AMIC ####[facility] [address] [place], [place] [address]Dr. Aga Estrella RBC NONE SEEN Abnormal 0-2 [facility] Comment on above: Performed By: #### U AMIC ####[facility] [address] [place], [place] [address]Dr. Aga Estrella SPEC GRAVITY 1.015 Normal 1.005-<=1.0 25 [facility] Comment on above: Performed By: #### U AMIC ####[facility] [address] [place], [place] [address]Dr. Aga Estrella UA PROTEIN Negative Normal NEGATIVE/ TRACE [facility] Comment on above: Performed By: #### U AMIC ####[facility] [address] [place], [place] [address]Dr. Aga Estrella Urobilinogen Qn (U) 0.2 {Kiya'U}/dL Normal 0.2 - 1.0 [facility] Comment on above: Performed By: #### U AMIC ####[facility] [address] [place], [place] [address]MoMavis Estrella WBC 0-2 Abnormal NONE SEEN [facility] Comment on above: Performed By: #### U AMIC ####[facility] [address] [place], [place] [address]QlMavis Estrella Covid-19 PCR ([facility])on SARS-CoV-2 (COVID-19) RNA JOSE+probe Ql (Unsp spec) Not detected Normal NOT DETECTED [facility] Comment on above: Result Comment: This test is not yet approved or cleared by the [place] FDA. When there are no FDA-approved or cleared tests available, and other criteria are met, FDA can make tests available under an emergency access mechanism called an Emergency Use Authorization (EUA). The EUA for this test is supported by the Staff Veterinarian of Health and Human Service's (HHS's) declaration [...] SARS-CoV-2. Performed By: #### C VDTBH #### [facility] [address] [address] [address] Aga Estrella GLYCOHEMOGLOBIN A1Con 2021 ADA RECOMMENDATION ADA THERAPEUTIC TARG ET 6.0 - 7.0 ACTION SUGGESTED > 7.0 Normal [facility] Comment on above: Performed By: #### A 1C #### [facility] [address] [address] [address] Aga Estrella Glucose [Mass/Vol] 183 mg/dL Normal [facility] Comment on above: Performed By: #### A 1C #### [facility] [address] [address] [address] Aga Estrella HbA1c (Bld) [Mass fraction] 8.0 % Critically high <=6.0 [facility] Comment on above: Performed By: #### A 1C #### [facility] [address] [address] [address] Aga Estrella PROF CHEM 8 (BAS METB)on Anion gap [Moles/Vol] 9.0 mmol/L Normal [facility] Comment on above: Performed By: #### B MP #### [facility] [address] [address] [address] Aga Estrella Calcium [Mass/Vol] 8.6 mg/dL Normal 8.5-10.1 [facility] Comment on above: Performed By: #### B MP #### [facility] [address] [address] [address] Aga Estrella Chloride [Moles/Vol] 102 mmol/L Normal 98-107 [facility] Comment on above: Performed By: #### B MP #### [facility] [address] [address] [address] Aga Estrella CO2 [Moles/Vol] 32.7 mmol/L Critically high 22.0-30.0 [facility] Comment on above: Performed By: #### B MP #### [facility] [address] [address] [address] Aga Estrella Creatinine [Mass/Vol] 0.61 mg/dL Normal 0.52-1.04 [facility] Comment on above: Performed By: #### B MP #### [facility] [address] [address] [address] Aga Estrella EGFR-AF MALAWIAN >60 Normal >=60 [facility] Comment on above: Performed By: #### B MP #### [facility] [address] [address] [address] Aga Estrella EGFR-NON AF MALAWIAN >60 Normal >=60 [facility] Comment on above: Performed By: #### B MP #### [facility] [address] [address] [address] Aga Estrella Glucose [Mass/Vol] 187 mg/dL Critically high 74-106 [facility] Comment on above: Performed By: #### B MP #### [facility] [address] [place], [place] [address] Dr. Aga Estrella Potassium [Moles/Vol] 3.7 mmol/L Normal 3.4-5.0 [facility] Comment on above: Performed By: #### B MP #### [facility] [address] [address] [address] Aga Estrella Sodium [Moles/Vol] 140 mmol/L Normal 137-145 [facility] Comment on above: Performed By: #### B MP #### [facility] [address] [address] [address] Aga Estrella Urea nitrogen [Mass/Vol] 13.0 mg/dL Normal 7.0-18.0 [facility] Comment on above: Performed By: #### B MP #### [facility] [address] [address] [address] Aga Estrella Urea nitrogen/Creatinin e [Mass ratio] 21.3 mg/mg Normal [facility] Comment on above: Performed By: #### B MP #### [facility] [address] [address] [address] Aga Estrella Vital Signs Date Time Vital Sign Value Performing Clinician Facility 03-06-2024 09:50-0500 Body height 157.5 cm Rossana Aliica [employer] Work Phone: [facility] 03-06-2024 09:50-0500 Body mass index (BMI) [Ratio] 38.56 kg/m2 Rossana Alicia [employer] Work Phone: [facility] 03-06-2024 09:50-0500 Body temperature 98.1 [degF] Rossana Alicia [employer] Work Phone: [facility] 03-06-2024 09:50-0500 Body weight 95.62 kg Rossana Alicia [employer] Work Phone: [facility] 03-06-2024 09:50-0500 Diastolic blood pressure 82 mm[Hg] Rossana Aichholz [employer] Work Phone: [facility] 03-06-2024 09:50-0500 Heart rate 78 /min Rossana Aichholz [employer] Work Phone: [facility] 03-06-2024 09:50-0500 Respiratory rate 18 /min Rossana Aichholz [employer] Work Phone: [facility] 03-06-2024 09:50-0500 SaO2% (BldA) [Mass fraction] 94 % Rossana Aichholz [employer] Work Phone: [facility] 03-06-2024 09:50-0500 Systolic blood pressure 122 mm[Hg] Rossana Aichholz [employer] Work Phone: [facility] 12-05-2023 14:07-0400 Body mass index (BMI) [Ratio] 38.74 kg/m2 Rossana Aichholz [employer] Work Phone: [facility] 12-05-2023 14:07-0400 Body temperature 97.5 [degF] Rossana Aichholz [employer] Work Phone: [facility] 12-05-2023 14:07-0400 Body weight 96.07 kg Rossana Aichholz [employer] Work Phone: [facility] 12-05-2023 14:07-0400 Diastolic blood pressure 86 mm[Hg] Rossana Aichholz [employer] Work Phone: [facility] 12-05-2023 14:07-0400 Heart rate 70 /min Rossana Aichholz [employer] Work Phone: [facility] 12-05-2023 14:07-0400 Respiratory rate 20 /min Rossana Aichholz [employer] Work Phone: [facility] 12-05-2023 14:07-0400 SaO2% (BldA) [Mass fraction] 94 % Rossana Aichholz [employer] Work Phone: [facility] 12-05-2023 14:07-0400 Systolic blood pressure 120 mm[Hg] Rossana Alicia [employer] Work Phone: [facility] 04-18-2022 14:43-0500 Blood Pressure Location Julian NILL [facility] 04-18-2022 14:43-0500 Diastolic blood pressure 88 mm[Hg] Julian NILL [facility] 04-18-2022 14:43-0500 Heart rate 80 /min Julian NILL [facility] 04-18-2022 14:43-0500 Respiratory rate 16 /min Julian NILL [facility] 04-18-2022 14:43-0500 Systolic blood pressure 130 mm[Hg] Julian NILL [facility] Encounters Encounter Date Encounter Type Care Provider Facility Start: 03-06-2024 End: 03-06-2024 Bamboo flowsheet Rossana Alicia [employer] Work Phone: [facility] Start: 03-06-2024 End: 03-06-2024 Bamboo flowsheet Rossana Alicia [employer] Work Phone: [facility] Start: 03-06-2024 End: 03-06-2024 Office outpatient visit 25 minutes Rossana Alicia [employer] Work Phone: [facility] Comment on above: Type 2 diabetes myke itus without complication, without long- term current use of insulin ([facility]/HCC) (Primary Dx); Obstructive sleep apnea syndrome; Pulmonary emphysema, unspecified emphysema type (CMS/HCC); Moderate persistent asthma without complication (CMS/HCC); Essential hypertension; Obesity (BMI 30-39.9); Current mild episode of major depressive disorder without prior episode (HCC) (CMS/HCC); Mixed hyperlipidemia (CMS/HCC); Primary hypertension (CMS/HCC); Environmental and seasonal allergies; Gastroesophageal reflux disease, unspecified whether esophagitis present; Hypoglycemia; Needs flu shot Start: 03-06-2024 End: 03-06-2024 ambulatory ROSSANA AICHHOLZ Not Available Start: 02-26-2024 End: 02-26-2024 Refill Rossana Aichholz [employer] Work Phone: [facility] Comment on above: Moderate persistent asthma without complication ([facility]); Type 2 diabetes mellitus without complication, without long-term current use of insulin ([facility]) Start: 01-17-2024 End: 01-17-2024 Refill Rossana Aichholz [employer] Work Phone: [facility] Comment on above: Primary hypertension ([facility]) Start: 12-25-2023 End: 12-25-2023 Refill Rossana Aichholz [employer] Work Phone: [facility] Comment on above: Moderate persistent asthma without complication ([facility]) Start: 12-18-2023 End: 12-18-2023 Refill Rossana Aichholz [employer] Work Phone: [facility] Comment on above: Type 2 diabetes myke itus without complication, without long- term current use of insulin ([facility]) (Primary Dx) Start: 12-14-2023 End: 12-14-2023 Clinisync Result Encounter Rossana Aichholz [employer] Work Phone: [facility] External Department Unsolicited Start: 12-14-2023 End: 12-14-2023 Clinisync Result Encounter Rossana Aichholz [employer] Work Phone: [facility] External Department Unsolicited Start: 12-05-2023 End: 12-05-2023 Bamboo flowsheet Rossana Aichholz [employer] Work Phone: [facility] Start: 12-05-2023 End: 12-05-2023 Bamboo flowsheet Rossana Aichholz [employer] Work Phone: [facility] Start: 12-05-2023 End: 12-05-2023 Office outpatient visit 25 minutes Rossana Aichholz [employer]PA[employer] Work Phone: [facility] Comment on above: Type 2 diabetes myke itus without complication, without long- term current use of insulin ([facility]) (Primary Dx); Type 2 diabetes mellitus with diabetic peripheral angiopathy without gangrene ([facility]); Essential hypertension; Mixed hyperlipidemia ([facility]); Primary hypertension ([facility]); Environmental and seasonal allergies; Chronic sinusitis of both maxillary sinuses; Moderate persistent asthma without complication ([facility]); Gastroesophageal reflux disease, unspecified whether esophagitis present Start: 12-05-2023 End: 12-05-2023 ambulatory ROSSANA AICHHOLZ Not Available Start: 10-01-2023 End: 10-01-2023 ambulatory ROSSANA AICHHOLZ Not Available Start: 09-12-2023 End: 09-12-2023 ambulatory ROSSANA AICHHOLZ Not Available Start: 08-16-2023 End: 08-16-2023 ambulatory ROSSANA AICHHOLZ Not Available Start: 07-05-2023 End: 07-05-2023 ambulatory ROSSANA AICHHOLZ Not Available Start: 05-21-2023 End: 05-21-2023 ambulatory ROSSANA AICHHOLZ Not Available Start: 05-08-2023 Clinisync Result Encounter Lis a Aichholz [employer]MAN [employer] Work Phone: [facility] External Department Unsolicited Start: 05-08-2023 Clinisync Result Encounter Lis a Aichholz [employer]MAN [employer]ER Work Phone: [facility] External Department Unsolicited Start: 04-10-2023 Patient encounter procedure Rossana Aichholz [employer]MAN [employer] RE[employer]ER Work Phone: [facility] Start: 04-10-2023 End: 04-10-2023 ambulatory ROSSANA AICHHOLZ Not Available Start: 06-07-2022 End: 06-08-2022 ambulatory SAP PPM CONSULTANT ROSSANA AICHHOLZ Facility: Start: 05-31-2022 End: 06-01-2022 ambulatory Julian BONILLA Facility: [facility] Start: 05-31-2022 End: 05-31-2022 Patient encounter procedure Julian BONILLA General Surgery Nill/Said [facility] Start: 05-24-2022 ambulatory Julian NILL Facility:[facility] Start: 05-17-2022 End: 05-18-2022 ambulatory Julian R NILL Facility:[id number] Start: 04-18-2022 End: 04-19-2022 ambulatory Julian R NILL Facility:[facility] Start: 04-18-2022 End: 04-18-2022 Patient encounter procedure Julian R NILL General Surgery Nill/Said [facility] Start: 03-28-2022 ambulatory Julian R NILL [facility] [place] Start: 12-21-2021 End: 12-22-2021 ambulatory SAP PPM CONSULTANT ROSSANA AICJODIZ Facility:[facility] Start: 09-01-2021 End: 09-01-2021 ambulatory SAP PPM CONSULTANT ROSSANA AICJODIZ Facility:[facility] Start: 07-14-2021 End: 07-15-2021 ambulatory SAP PPM CONSULTANT ROSSANA AICHHOLZ Facility:[facility] Procedures Date Procedure Procedure Detail Performing Clinician Start: 12-14-2023 ALL CBC WITH AUTO DIFF Rossana Aicjodiz [employer]PA[employer]ER Work Phone: Start: 06-29-2023 Mammography Rossana Aichholz [employer]MAN [employer]PA[employer]ER Work Phone: Start: 05-08-2023 MLR HEMOGLOBIN A1C Rossana Aichholz [employer]MAN [employer] REPA[employer] Work Phone: Start: 06-07-2022 Mammography Rossana Aichholz [employer]MAN [employer] REPA[employer]ER Work Phone: Start: 05-17-2022 Colonoscopy Rossana Aichholz [employer]MAN [employer] REPA[employer]ER Work Phone: Start: 05-17-2022 Colonoscopy Julian NILL Start: 05-17-2022 Esophagogastroduodenoscopy Julian NILL Start: 03-26-2013 Cholecystectomy Julian NILL Start: 02-22-2011 Colonoscopy Julian NILL Start: 03-26-1969 Tonsil and adenoid structure (body structure) Julian BONILLA Dilation and curettage Mark BONILLA Esophagogastroduodenoscopy Julia BONILLA Excision of lipoma Julian BENSON Oophorectomy Julian BONILLA Plan of Treatment Date Care Activity Detail Author Start: 05-17-2027 Screening for malign ant neoplasm of colon [facility] Start: 12-11-2025 Glaucoma screening Diabetes: R etinopathy Screening [facility] Start: 12-13-2024 Urine screening for protein Diabetes: Urine Protein Screening [facility] Start: 06-28-2024 Screening for malign ant neoplasm of breast Mammogram [facility] Start: 06-12-2024 End: 06-12-2024 Patient encounter procedure 06/12/2024 9:40 AM EDT Office Visit [facility] [address] [place] [address] Rossana Alicia NP [address] [place] [id number] [facility] Start: 04-10-2024 Medicare Annual Well ness (AWV) Medicare Annual Wellness (AWV) [facility] Start: 03-06-2024 End: 03-06-2025 Hemoglobin A1c/Hemoglobin.total in Blood Hemoglobin A1c Lab Routine Type 2 diabetes mellitus without complication, without long-term current use of insulin (CMS/HCC) Expected: 03/06/2024 (Approximate), Expires: 03/06/2025 [facility] Work Phone: Comment on above: Expected: 03/06/2024 (Approximate), Expires: 03/06/2025 Start: 03-06-2024 End: 03-06-2024 Patient encounter procedure [facility] Comment on above: Obstructive sleep ap blanquita syndrome (Primary Dx); Pulmonary emphysema, unspecified emphysema type (CMS/HCC); Moderate persistent asthma without complication ([facility]); Essential hypertension; Obesity (BMI 30-39.9); Type 2 diabetes mellitus without complication, without long-term current use of insulin ([facility]); Current mild episode of major depressive disorder without prior episode ([facility]) ([facility]); Mixed hyperlipidemia ([facility]); Primary hypertension ([facility]); Environmental and seasonal allergies; Gastroesophageal reflux disease, unspecified whether esophagitis present Start: 01-27-2024 Urine screening for protein Diabetes: Urine Protein Screening [facility] Start: 01-24-2024 Influenza vaccination Influenza Vacc ine (#1) [facility] Comment on above: Postponed from 11/24 (Patient Does Not Have Time) Start: 01-21-2024 Glaucoma screening Diabetes: R etinopathy Screening [facility] Start: 12-05-2023 End: 12-04-2024 CBC W Auto Differential panel - Blood CBC and differential Lab Routine Type 2 diabetes mellitus without complication, without long-term current use of insulin ([facility]) Expected: 12/05/2023 (Approximate), Expires: 12/04/2024 [facility] Work Phone: Comment on above: Expected: 12/05/2023 (Approximate), Expires: 12/04/2024 Start: 12-05-2023 End: 12-04-2024 Comprehensive metabolic 2000 panel - Serum or Plasma Comprehensive metabolic panel Lab Routine Essential hypertension Type 2 diabetes mellitus without complication, without long-term current use of insulin ([facility]) Mixed hyperlipidemia ([facility]) Expected: 12/05/2023 (Approximate), Expires: 12/04/2024 [facility] Comment on above: Expected: 12/05/2023 (Approximate), Expires: 12/04/2024 Start: 12-05-2023 End: 12-04-2024 Hemoglobin A1c/Hemoglobin.total in Blood Hemoglobin A1c Lab Routine Type 2 diabetes mellitus without complication, without long-term current use of insulin ([facility]) Expected: 12/05/2023 (Approximate), Expires: 12/04/2024 [facility] Comment on above: Expected: 12/05/2023 (Approximate), Expires: 12/04/2024 Start: 12-05-2023 End: 12-04-2024 Lipid 1996 panel - Serum or Plasma Lipid panel Lab Routine Type 2 diabetes mellitus without complication, without long-term current use of insulin (CMS/HCC) Mixed hyperlipidemia (CMS/HCC) Expected: 12/05/2023 (Approximate), Expires: 12/04/2024 [facility] Comment on above: Expected: 12/05/2023 (Approximate), Expires: 12/04/2024 Start: 12-05-2023 End: 12-04-2024 Microalbumin/Creatinine panel in random Urine Microalbumin / creatinine, urine ratio Lab Routine Essential hypertension Type 2 diabetes mellitus without complication, without long-term current use of insulin (CMS/HCC) Expected: 12/05/2023 (Approximate), Expires: 12/04/2024 [facility] Comment on above: Expected: 12/05/2023 (Approximate), Expires: 12/04/2024 Start: 12-05-2023 End: 12-05-2023 Patient encounter procedure 12/05/2023 2:00 PM EDT Office Visit [facility] [address] [place] [address] Rossana Alicia, AYDEE [address] [place] [address] Essential hypertension (Primary Dx); Type 2 diabetes mellitus with diabetic peripheral angiopathy without gangrene (CMS/HCC); Type 2 diabetes mellitus without complication, without long-term current use of insulin (CMS/HCC); Mixed hyperlipidemia (CMS/HCC) [facility] Comment on above: Essential hypertensi on (Primary Dx); Type 2 diabetes mellitus with diabetic peripheral angiopathy without gangrene (CMS/HCC); Type 2 diabetes mellitus without complication, without long-term current use of insulin (CMS/HCC); Mixed hyperlipidemia (CMS/HCC) Start: 12-05-2023 End: 12-04-2024 Urinalysis complete panel - Urine Urinalysis with reflex microscopic (clean catch) Lab Routine Essential hypertension Type 2 diabetes mellitus without complication, without long-term current use of insulin (CMS/HCC) Expected: 12/05/2023 (Approximate), Expires: 12/04/2024 [facility] Comment on above: Expected: 12/05/2023 (Approximate), Expires: 12/04/2024 Start: 11-25-2023 Influenza vaccination Influenza Vacc ine (#1) [facility] Start: 08-06-2023 Hemoglobin A1c measurement Diabetes: Hemoglobin A1C [facility] Start: 06-08-2023 Screening for malign ant neoplasm of breast Mammogram [facility] Start: 05-14-2023 End: 05-14-2023 Patient encounter procedure 05/14/2023 9:40 AM EST Office Visit [facility] [address] [place] [phone] Rossana Alicia NP [address] [place] [phone] [facility] Start: 04-28-2023 Hemoglobin A1c measurement Diabetes: Hemoglobin A1C [facility] Start: 11-24-2022 Influenza vaccination Influenza Vacc ine (#1) [facility] Start: 1955 Screening for malign ant neoplasm of colon [facility] Immunizations Immunization Date Immunization Notes Care Provider Fa cili 03-06-2024 Seasonal trivalent influenza vaccine, adjuvanted, preservative free Rossana Alicia [employer] REPA[employer]ER Work Phone: [facility] 08-18-2021 Pfizer Quinonez Cap SARS-CoV-2 Vaccination Rossana Alicia [employer]MAN [employer] REPAIRER Work Phone: [facility] 08-18-2021 SARS-CoV-2 mRNA (xvbtdvscyvf-evcr-vqfck se) vaccine Julian BONILLA [facility] 01-10-2021 SARS-CoV-2 (COVID-19 ) mRNA BNT-162b2 vax Julian BONILLA [facility] 12-14-2020 influenza virus vaccine, unspecified formulation Julian BONILLA [facility] 12-14-2020 Influenza, Seasonal, Quadrivalent, Adjuvanted Rossana Alicia [employer]MAN [employer] REPAIRER Work Phone: [facility] 06-18-2020 SARS-CoV-2 (COVID-19 ) mRNA BNT-162b2 vax Julian BONILLA [facility] [place] 05-29-2020 SARS-CoV-2 (COVID-19 ) mRNA BNT-162b2 vax Julian GARYL [facility] [place] Comment on above: Result Comment: 2022: [id number] 12-30-2018 influenza virus vaccine, live, attenuated, for intranasal use Julian BONILLA [facility] Payers Date Payer Category Payer Medicaid [employer] MED[employer]ARE A DVANTAGE [id number] 2021 Private Health Insurance [employer] [facility] [id number] 2021-Present [address] [address] [place] [address] [id number] 2020 Medicare [id number] 1959 Private Health Insurance [id number] 1955 Unknown [id number] [id number]. 727 1955 Unknown [id number] 2.16.840.1.188657.3.579.2. 727 1955 Unknown [id number] 2.16.840.1.649232.3.579.2. 727 1955 Unknown [id number] 2.16.840.1.834777.3.579.2. 727 1955 Unknown [id number] 2.16.840.1.149268.3.579.2. 593 1955 Unknown [id number] 2.16.840.1.988012.3.579.2. 593 1955 Unknown [id number] 2.16.840.1.487393.3.579.2. 593 1955 Unknown [id number] 2.16.840.1.689630.3.579.2. 593 1955 Unknown [id number] 2.16.840.1.458265.3.579.2. 593 1955 Unknown [id number] 2.16.840.1.287540.3.579.2. 1259 1955 Unknown [id number] 2.16.840.1.106408.3.579.2. 1259 1955 Unknown [id number] 2.16.840.1.196776.3.579.2. 1259 1955 Unknown [id number] 2.16.840.1.929204.3.579.2. 1259 1955 Unknown [id number] 2.16.840.1.869696.3.579.2. 1259 1955 Unknown [id number] 2.16.840.1.898755.3.579.2. 1259 1955 Unknown [id number] 2.16.840.1.021572.3.579.2. 1259 1955 Unknown [id number] 2.16.840.1.487890.3.579.2. 1259 Social History Date Type Detail Facility Start: 04-18-2022 End: 09-12-2023 Tobacco smoking status Ex-smoker (finding) [facility] Tobacco smoking status Never [facility] [place] Start: 04-09-2023 End: 09-12-2023 Sex Assigned At Female Shawn Dickson [facility] End: 03-26-1994 History of tobacco use Current smoker [facility] End: 03-26-1994 History of tobacco use Cigarette Smoker [facility] Start: 02-22-2023 End: 09-12-2023 Tobacco use and exposure Smokeless tobacco non-user [facility] Start: 04-10-2023 End: 12-05-2023 Alcohol intake Ex-drinker (finding) [facility] Start: 04-09-2023 End: 09-12-2023 History of Social function [facility] Within the last year , have you been afraid of your partner or ex-partner? No [facility] Do you belong to any clubs or organizations such as tenriism groups, unions, [employer] or athletic groups, or school groups? Yes [...] At Not on file [facility] History of tobacco use Passive smoker [facility] Functional Status Date Assessment Result Facility 04-18-2022 Functional Status N/A [facility] [place] Clinical Notes 04-18-2022 to 03-06-2024 Rossana Alicia NP - 03/06/2024 10:59 AM Harish Alicia NP - 03/06/2024 10:56 AM VARSHA CONNELL - 03/06/2024 9:40 AM Harish Alicia NP - 03/06/2024 9:40 AM ESTPatient Instructions Note Date & Type Note Facility 03-06-2024 History of Present illness Narrative Associated Problem(s): Environmental and seasonal allergies Takes allergy pill, does not like nasal steroids Associated Problem(s): Hypoglycemia Does have times where she is not sure what her blood sugar is doing, feels dizziness, hunger and shaky feeling Will see if insurance covers CGM Left leg pain- pt thinks it could be sciatica it has been painful for 3 weeks or more. Pt having troubles getting her test strips ordered/ refilled Lot number [id number] 50 strips each Code 16 Free style lite [place] Images from the original note were not included. Jaye Beavers is a 68 y.o. female presents with chief complaint of Diabetes HPI: MERRILL: is compliant with wearing PAP, 6-7 COPD/Asthma: is taking her inhalers, minimal cough/dyspnea/wheeze noted Diabetes She presents for her follow-up diabetic visit. She has type 2 diabetes mellitus. Her disease course has been improving. Hypoglycemia symptoms include dizziness, hunger and tremors. Pertinent negatives for hypoglycemia include no headaches, nervousness/anxiousness or seizures. Pertinent negatives for diabetes include no blurred vision, no chest pain, no foot paresthesias, no polydipsia, no polyphagia and no polyuria. There are no hypoglycemic complications. Symptoms are improving. There are no diabetic complications. Risk factors for coronary artery disease include diabetes mellitus, dyslipidemia, hypertension, obesity and sedentary lifestyle. Current diabetic treatment includes oral agent (dual therapy) (mounjaro). Her overall blood glucose range is >200 mg/dl. An SANDRO inhibitor/angiotensin II receptor miriam is not being taken. Eye exam is current. Hypertension This is a chronic problem. The current episode started more than 1 year ago. The problem is unchanged. The problem is controlled. Associated symptoms include peripheral edema (at times). Pertinent negatives include no blurred vision, chest pain, headaches, malaise/fatigue, palpitations or shortness of breath. There are no associated agents to hypertension. Risk factors for coronary artery disease include diabetes mellitus, dyslipidemia, obesity, post-menopausal state and sedentary lifestyle. Past treatments include calcium channel blockers, diuretics and beta blockers. The current treatment provides significant improvement. There are no compliance problems. There is no history of CAD/RI or heart failure. SUBJECTIVE: MEDICATIONS: Current Outpatient Medications Medication Instructions albuterol HFA 90 mcg/act inhaler 2 puffs, Inhalation, Every 6 hours PRN amLODIPine (NORVASC) 2.5 mg, Oral, Daily, Take by mouth Daily. aspirin (ASPIRIN LOW DOSE) 81 mg, Oral, Daily atorvastatin (LIPITOR) 80 mg, Oral, Every evening cetirizine (ZYRTEC) 10 mg, Oral, Daily dapagliflozin (FARXIGA) 10 mg, Oral, Daily Fluticasone Furoate-Vilanterol (Breo Ellipta) 200-25 MCG/ACT aerosol powder 1 puff, Inhalation, Daily, Rinse mouth after use hydroCHLOROthiazide (HYDRODIURIL) 25 mg, Oral, Daily metFORMIN (GLUCOPHAGE) 500 mg, Oral, 2 times daily with meals metoprolol tartrate (LOPRESSOR) 50 mg, Oral, 2 times daily Mounjaro 5 mg, Subcutaneous, Every 7 days omeprazole (PRILOSEC) 20 mg, Oral, Daily before breakfast ALLERGIES: Allergies Allergen Reactions Cefaclor Hives and Shortness of breath Penicillins Hives and Shortness of breath Pneumococcal Vaccine Hives and Shortness of breath Patient stated allergy to pneumonia vaccine Pneumovax 23 REVIEW OF SYMPTOMS: Review of Systems Constitutional: Negative for appetite change, chills, fever and malaise/fatigue. HENT: Negative for congestion, ear pain and sore throat. Eyes: Negative for blurred vision, pain, discharge, redness and visual disturbance. Respiratory: Positive for cough. Negative for shortness of breath and wheezing. Cardiovascular: Positive for leg swelling. Negative for chest pain and palpitations. Gastrointestinal: Negative for abdominal pain, blood in stool, constipation, diarrhea, nausea and vomiting. Genitourinary: Negative for difficulty urinating, dysuria and frequency. Musculoskeletal: Negative for arthralgias, back pain, joint swelling and myalgias. Skin: Negative for rash and wound. Neurological: Positive for dizziness and tremors. Negative for seizures, syncope and headaches. Psychiatric/Behavioral: Negative for behavioral problems, self-injury and suicidal ideas. The patient is not nervous/anxious. Hematological: Does not bruise/bleed easily. Endocrine: Negative for polydipsia, polyphagia and polyuria. Allergic/Immunologic: Negative for environmental allergies and food allergies. PAST MEDICAL HISTORY Past Medical History: Diagnosis Date Emphysema lung ([facility]) 04/10/2023 Moderate asthma without complication ([facility]) 02/26/2023 Primary hypertension ([facility]) 02/26/2023 Sleep apnea 04/10/2023 Type 2 diabetes mellitus without complication, without long-term current use of insulin ([facility]) 02/26/2023 Past Surgical History: Procedure Laterality Date JUDY-ARTERIAL STUDY OF LEGS Bilateral 05/26/2019 with segmental pressures : right: nomral left significant decrease in pressure between thigh and calf cuff CARDIOVASCULAR STRESS TEST 06/05/2019 lexiscan test normal is normal CHOLECYSTECTOMY 2011 COLONOSCOPY 2011 COLONOSCOPY 05/17/2022 tubular adenoma polyp x 2, next r/u in 5 years 2027 COMP PFT 01/14/2019 FVC 59%, FEV1 50%, FEV1/FVC 84% moderate obstructive pattern , air trapping, compatible with moderate emphysema CT SCAN : ABD &AMP; PELVIS WITH IV AND ORAL CONTRAST 12/19/2013 prominence of the distal esophagus, small sliding type hital hernia vs mass. ventral abdmonial wall hernia containing mesenteric fat without evidence of strangulation DILATION AND CURETTAGE OF UTERUS ECHOCARDIOGRAM 09/02/2020 EF 55-60%, mild LVH, mild elevated right sided pressures EGD 02/04/2014 pre-pyloric gastritis adn duodneitis with punctate bleeding EYE EXAM 01/20/2022 Dilated retinal eye exm, normal, no diabetic complications FOOT SURGERY multiple 1980s+1990s LAPAROTOMY OOPHERECTOMY Right 1989 LIPOMA RESECTION Right 1999 upper arm TONSILLECTOMY 1963 ULTRASOUND 03/23/2021 Liver USN: fatty liver, no masses US ARTERIAL DUPLEX LE LT 05/29/2019 mod-prosper atherosclerotic disease US CAROTID - GENERIC 09/02/2020 no significant flow stenosis family history includes Breast cancer in her mother; COPD in her father; Cancer in her mother; Diabetes in her father; Hyperlipidemia in her father; Hypertension in her father; Leukemia in her mother; Ovarian cancer in an other family member; Skin cancer in her father; bladder cancer in her father. OBJECTIVE: Visit Vitals BP 122/82 (BP Location: Left arm, Patient Position: Sitting, BP Cuff Size: Adult long) Pulse 78 Temp 98.1 F (Temporal) Resp 18 Ht 5' 2 Wt 210 lb 12.8 oz SpO2 94% BMI 38.56 kg/m Smoking Status Former BSA 2.05 m Physical Exam Vitals and nursing note reviewed. Constitutional: General: She is not in acute distress. Appearance: Normal appearance. She is obese. She is not ill-appearing. HENT: Head: Normocephalic and atraumatic. Right Ear: External ear normal. Left Ear: External ear normal. Nose: Nose normal. Mouth/Throat: Mouth: Mucous membranes are moist. Eyes: Extraocular Movements: Extraocular movements intact. Conjunctiva/sclera: Conjunctivae normal. Neck: Vascular: No carotid bruit. Cardiovascular: Rate and Rhythm: Normal rate and regular rhythm. Pulses: Normal pulses. Heart sounds: Normal heart sounds. Pulmonary: Effort: Pulmonary effort is normal. Breath sounds: Normal breath sounds. No wheezing or rales. Abdominal: General: Bowel sounds are normal. There is no distension. Palpations: Abdomen is soft. There is no mass. Tenderness: There is no abdominal tenderness. Musculoskeletal: General: Normal range of motion. Cervical back: Normal range of motion and neck supple. Right lower leg: Edema present. Left lower leg: Edema present. Comments: Trace edema, brownish venous discoloration bilat LE Lymphadenopathy: Cervical: No cervical adenopathy. Skin: General: Skin is warm and dry. Capillary Refill: Capillary refill takes 2 to 3 seconds. Findings: No rash. Neurological: General: No focal deficit present. Mental Status: She is alert and oriented to person, place, and time. Psychiatric: Mood and Affect: Mood normal. Behavior: Behavior normal. Thought Content: Thought content normal. Judgment: Judgment normal. ASSESSMENT AND PLAN: No follow-ups on file. Problem List Items Addressed This Visit Moderate asthma without complication (CMS/[facility]) Current meds: breo and albuterol Type 2 diabetes mellitus without complication, without long-term current use of insulin ([facility]) - Primary Check blood sugars daily, notify if <70 or >200. Take medications (pills or insulin) as directed. Monitor for s/s of hypoglycemia (sweaty, dizziness, nausea, vomiting, or shakiness). Watch for increase in thirst, urination, or appetite. Inspect feet frequently monitoring for open wounds , and also recommend yearly eye exam. Pt should attempt to remain as physically active as chronic conditions allow, as well as trying to follow a diet low in carbohydrates, and simple sugars. Current meds: asa, statin, farxiga, metformin, mounjaro A1c was 10.2% on 12/14/23, order given for pt to get done around 03/15/24 I am going to increase mounjaro to 7.5mg Although many of her sugars are above 200, she does feel that they are starting to have more less than 200 over the last few weeks. She does have some times where she is not sure if she is having low blood sugar-see if can get CGM She is frustrated at the fact the mounjaro has not caused more weight loss, again the goal is to control sugar, with the added value of weight loss Feels like it is harder for her to poke finger to get blood as well Hoping for CGM will send in script Relevant Medications aspirin (Aspirin Low Dose) 81 MG EC tablet atorvastatin (Lipitor) 80 MG tablet dapagliflozin (Farxiga) 10 MG metFORMIN (Glucophage) 500 MG tablet Continuous Glucose Sensor (Dexcom G7 Sensor) misc Continuous Glucose [employer] (Dexcom G7 [employer]) device Tirzepatide (Mounjaro) 7.5 MG/0.5ML solution auto-injector Other Relevant Orders Hemoglobin A1c Essential hypertension (Chronic) Please check blood pressure daily and record DASH diet Limit caffeine Take medication as directed Contact office if chest pain, pressure, dizziness, shortness of breath, swelling legs Recommend slow position changes Current meds: amlodipine, hydrochlorothiazide, metoprolol Environmental and seasonal allergies Takes allergy pill, does not like nasal steroids Relevant Medications cetirizine (ZyrTEC) 10 MG tablet Mixed hyperlipidemia ([facility]) On statin therapy Check labs yearly and prn Relevant Medications atorvastatin (Lipitor) 80 MG tablet Sleep apnea CPAP use: 6-7 hours per night Tolerates well Emphysema lung ([facility]) Current meds; albuterol prn, breo daily Current mild episode of major depressive disorder without prior episode (HCC) ([facility]) Patient has requested not to take medications during previous appointments Obesity (BMI 30-39.9) Discussed with patient their BMI (actual, verses recommended). We have also discussed lifestyle modifications: attempts to perform physical activity as chronic conditions allow, also to monitor dietary intake: increasing protein/fruits/veggies and lowering carb intake (unless contraindicated). Limit sodas, juices, and sugary drinks. Has been able to slowly bring down weight, continue with current therapies Has lost 13 pounds since 07/17 Hypoglycemia Does have times where she is not sure what her blood sugar is doing, feels dizziness, hunger and shaky feeling Will see if insurance covers CGM Relevant Medications Continuous Glucose Sensor (Dexcom G7 Sensor) misc Continuous Glucose [employer] (Dexcom G7 [employer]) device Needs flu shot Relevant Orders Flu vaccine, trivalent, adjuvanted, PF ([id number]) (Fluad trivalent single dose syringe) (Completed) Other Visit Diagnoses Primary hypertension ([facility]) Relevant Medications amLODIPine (Norvasc) 2.5 MG tablet hydroCHLOROthiazide (HYDRODiuril) 25 MG tablet metoprolol tartrate (Lopressor) 50 MG tablet Gastroesophageal reflux disease, unspecified whether esophagitis present Relevant Medications omeprazole (PriLOSEC) [address] capsule Associated Problem(s): Mixed hyperlipidemia ([facility]) On statin therapy Check labs yearly and prn Associated Problem(s): Current mild episode of major depressive disorder without prior episode (HCC) ([facility]) Patient has requested not to take medications during previous appointments Associated Problem(s): Type 2 diabetes mellitus without complication, without long-term current use of insulin ([facility]) Check blood sugars daily, notify if <70 or >200. Take medications (pills or insulin) as directed. Monitor for s/s of hypoglycemia (sweaty, dizziness, nausea, vomiting, or shakiness). Watch for increase in thirst, urination, or appetite. Inspect feet frequently monitoring for open wounds , and also recommend yearly eye exam. Pt should attempt to remain as physically active as chronic conditions allow, as well as trying to follow a diet low in carbohydrates, and simple sugars. Current meds: asa, statin, farxiga, metformin, mounjaro A1c was 10.2% on 12/14/23, order given for pt to get done around 03/15/24 I am going to increase mounjaro to 7.5mg Although many of her sugars are above 200, she does feel that they are starting to have more less than 200 over the last few weeks. She does have some times where she is not sure if she is having low blood sugar-see if can get CGM She is frustrated at the fact the mounjaro has not caused more weight loss, again the goal is to control sugar, with the added value of weight loss Feels like it is harder for her to poke finger to get blood as well Hoping for CGM will send in script Associated Problem(s): Obesity (BMI 30-39.9) Discussed with patient their BMI (actual, verses recommended). We have also discussed lifestyle modifications: attempts to perform physical activity as chronic conditions allow, also to monitor dietary intake: increasing protein/fruits/veggies and lowering carb intake (unless contraindicated). Limit sodas, juices, and sugary drinks. Has been able to slowly bring down weight, continue with current therapies Has lost 13 pounds since 07/17 Associated Problem(s): Essential hypertension Please check blood pressure daily and record DASH diet Limit caffeine Take medication as directed Contact office if chest pain, pressure, dizziness, shortness of breath, swelling legs Recommend slow position changes Current meds: amlodipine, hydrochlorothiazide, metoprolol Associated Problem(s): Moderate asthma without complication ([facility]/HCC) Current meds: breo and albuterol Associated Problem(s): Emphysema lung ([facility]/HCC) Current meds; albuterol prn, breo daily Associated Problem(s): Sleep apnea CPAP use: 6-7 hours per night Tolerates well documented in this encounter [facility] 03-06-2024 Instructions Rossana Alicia NP - 03/06/2024 9:40 AM EST See if we can get dexcom through insurance A1c due 03/14/24 documented in this encounter [facility] 12-05-2023 History of Present illness Narrative Associated Problem(s): Type 2 diabetes mellitus without complication, without long-term current use of insulin ([facility]) Is continuing to demonstrate weight loss, slow sugar response Discontinue rybelsus, will trial mounjaro at 2.5mg, #1 sample given lot [id number], exp 03/06/24 After 3 weeks will let me know if helping then will order 5mg Also needed a sample of farxiga 10mg until mail order came in, sample recorded and given Associated Problem(s): Essential hypertension At goal Associated Problem(s): Moderate asthma without complication (CMS/HCC) Stable on current meds Pt needs a refill on her farxiga and freestyle lite blood glucose strips and semaglutide Pt is not taking medication at noon she was forgetting it and then went back to taking it in the morning. Pt did bring in fasting sugars in the last month- all were above 200 Doc scanned into chart- reads the same way as meter from todays reading and back.. Images from the original note were not included. Jaye Beavers is a 68 y.o. female presents with chief complaint of No chief complaint on file. HPI: Diabetes She presents for her follow-up diabetic visit. She has type 2 diabetes mellitus. Her disease course has been fluctuating. There are no hypoglycemic associated symptoms. Pertinent negatives for hypoglycemia include no dizziness, headaches, nervousness/anxiousness, seizures or tremors. Associated symptoms include polydipsia, polyuria and weight loss. Pertinent negatives for diabetes include no blurred vision, no chest pain, no foot paresthesias and no polyphagia. There are no hypoglycemic complications. Symptoms are stable. There are no diabetic complications. Risk factors for coronary artery disease include diabetes mellitus, dyslipidemia, obesity, hypertension and sedentary lifestyle. Current diabetic treatment includes oral agent (triple therapy). She is compliant with treatment all of the time. Her overall blood glucose range is >200 mg/dl. An SANDRO inhibitor/angiotensin II receptor miriam is being taken. SUBJECTIVE: MEDICATIONS: Current Outpatient Medications Medication Instructions albuterol HFA 90 mcg/act inhaler 2 puffs, Inhalation, Every 6 hours PRN amLODIPine (NORVASC) 2.5 mg, Oral, Daily, Take by mouth Daily. Aspirin Low Dose 81 mg, Oral, Daily atorvastatin (LIPITOR) 80 mg, Oral, Every evening cetirizine (ZYRTEC) 10 mg, Oral, Daily dapagliflozin (FARXIGA) 10 mg, Oral, Daily fluticasone (Flonase) 50 MCG/ACT nasal spray 2 sprays, Each Nostril, Daily, Shake gently. Before first use, prime pump. After use, clean tip and replace cap. Fluticasone Furoate-Vilanterol (Breo Ellipta) 200-25 MCG/ACT aerosol powder 1 puff, Inhalation, Daily, Rinse mouth after use glucosamine-chondroitin 500-400 MG tablet 1 tablet, Oral, 3 times daily metFORMIN (GLUCOPHAGE) 500 mg, Oral, 2 times daily with meals metoprolol tartrate (LOPRESSOR) 50 mg, Oral, 2 times daily omeprazole (PRILOSEC) 20 mg, Oral, Daily before breakfast semaglutide (RYBELSUS) 7 mg, Oral, Daily before breakfast ALLERGIES: Allergies Allergen Reactions Cefaclor Hives and Shortness of breath Penicillins Hives and Shortness of breath Pneumococcal Vaccine Hives and Shortness of breath Patient stated allergy to pneumonia vaccine Pneumovax 23 REVIEW OF SYMPTOMS: Review of Systems Constitutional: Positive for weight loss. Negative for appetite change, chills and fever. HENT: Negative for congestion, ear pain and sore throat. Eyes: Negative for blurred vision, pain, discharge, redness and visual disturbance. Respiratory: Negative for cough, shortness of breath and wheezing. Cardiovascular: Negative for chest pain, palpitations and leg swelling. Gastrointestinal: Negative for abdominal pain, blood in stool, constipation, diarrhea, nausea and vomiting. Genitourinary: Negative for difficulty urinating, dysuria and frequency. Musculoskeletal: Negative for arthralgias, back pain, joint swelling and myalgias. Skin: Negative for rash and wound. Neurological: Negative for dizziness, tremors, seizures, syncope and headaches. Psychiatric/Behavioral: Negative for behavioral problems, self-injury and suicidal ideas. The patient is not nervous/anxious. Hematological: Does not bruise/bleed easily. Endocrine: Positive for polydipsia and polyuria. Negative for polyphagia. Allergic/Immunologic: Negative for environmental allergies and food allergies. PAST MEDICAL HISTORY Past Medical History: Diagnosis Date Emphysema lung ([facility]) 04/10/2023 Moderate asthma without complication ([facility]) 02/26/2023 Primary hypertension ([facility]) 02/26/2023 Sleep apnea 04/10/2023 Type 2 diabetes mellitus without complication, without long-term current use of insulin ([facility]) 02/26/2023 Past Surgical History: Procedure Laterality Date JUDY-ARTERIAL STUDY OF LEGS Bilateral 05/26/2019 with segmental pressures : right: nomral left significant decrease in pressure between thigh and calf cuff CARDIOVASCULAR STRESS TEST 06/05/2019 lexiscan test normal is normal CHOLECYSTECTOMY 2010 COLONOSCOPY 2010 COLONOSCOPY 05/17/2022 tubular adenoma polyp x 2, next r/u in 5 years 2027 COMP PFT 01/14/2019 FVC 59%, FEV1 50%, FEV1/FVC 84% moderate obstructive pattern , air trapping, compatible with moderate emphysema CT SCAN : ABD &AMP; PELVIS WITH IV AND ORAL CONTRAST 12/19/2013 prominence of the distal esophagus, small sliding type hital hernia vs mass. ventral abdmonial wall hernia containing mesenteric fat without evidence of strangulation DILATION AND CURETTAGE OF UTERUS ECHOCARDIOGRAM 09/02/2020 EF 55-60%, mild LVH, mild elevated right sided pressures EGD 02/04/2014 pre-pyloric gastritis adn duodneitis with punctate bleeding EYE EXAM 01/20/2022 Dilated retinal eye exm, normal, no diabetic complications FOOT SURGERY multiple 1980s+1990s LAPAROTOMY OOPHERECTOMY Right 1989 LIPOMA RESECTION Right 1999 upper arm TONSILLECTOMY 1963 ULTRASOUND 03/23/2021 Liver USN: fatty liver, no masses US ARTERIAL DUPLEX LE LT 05/29/2019 mod-prosper atherosclerotic disease US CAROTID - GENERIC 09/02/2020 no significant flow stenosis family history includes Breast cancer in her mother; COPD in her father; Cancer in her mother; Diabetes in her father; Hyperlipidemia in her father; Hypertension in her father; Leukemia in her mother; Ovarian cancer in an other family member; Skin cancer in her father; bladder cancer in her father. OBJECTIVE: Visit Vitals BP 120/86 (BP Location: Left arm, Patient Position: Sitting, BP Cuff Size: Adult long) Pulse 70 Temp 97.5 F (Temporal) Resp 20 Wt 211 lb 12.8 oz SpO2 94% BMI 38.74 kg/m Smoking Status Former BSA 2.05 m Physical Exam Vitals and nursing note reviewed. Constitutional: General: She is not in acute distress. Appearance: Normal appearance. HENT: Head: Normocephalic and atraumatic. Right Ear: External ear normal. Left Ear: External ear normal. Nose: Nose normal. Mouth/Throat: Mouth: Mucous membranes are moist. Eyes: Extraocular Movements: Extraocular movements intact. Conjunctiva/sclera: Conjunctivae normal. Cardiovascular: Rate and Rhythm: Normal rate and regular rhythm. Pulses: Normal pulses. Heart sounds: Normal heart sounds. Pulmonary: Effort: Pulmonary effort is normal. Breath sounds: Normal breath sounds. No wheezing or rhonchi. Abdominal: General: Bowel sounds are normal. There is no distension. Palpations: Abdomen is soft. There is no mass. Tenderness: There is no abdominal tenderness. Musculoskeletal: General: Normal range of motion. Cervical back: Normal range of motion and neck supple. Skin: General: Skin is warm and dry. Capillary Refill: Capillary refill takes 2 to 3 seconds. Findings: No rash. Neurological: General: No focal deficit present. Mental Status: She is alert and oriented to person, place, and time. Psychiatric: Mood and Affect: Mood normal. Behavior: Behavior normal. Thought Content: Thought content normal. Judgment: Judgment normal. ASSESSMENT AND PLAN: No follow-ups on file. Problem List Items Addressed This Visit Moderate asthma without complication (CMS/HCC) Stable on current meds Relevant Medications Fluticasone Furoate-Vilanterol (Breo Ellipta) 200-25 MCG/ACT aerosol powder Type 2 diabetes mellitus without complication, without long-term current use of insulin (CMS/HCC) Is continuing to demonstrate weight loss, slow sugar response Discontinue valerie, will trial mounjaro at 2.5mg, #1 sample given lot [id number], exp 03/06/24 After 3 weeks will let me know if helping then will order 5mg Also needed a sample of farxiga 10mg until mail order came in, sample recorded and given Relevant Medications aspirin (Aspirin Low Dose) 81 MG EC tablet atorvastatin (Lipitor) 80 MG tablet dapagliflozin (Farxiga) 10 MG metFORMIN (Glucophage) 500 MG tablet Other Relevant Orders CBC and differential Comprehensive metabolic panel Lipid panel Urinalysis with reflex microscopic (clean catch) Microalbumin / creatinine, urine ratio Hemoglobin A1c Essential hypertension - Primary (Chronic) At goal Relevant Orders Comprehensive metabolic panel Urinalysis with reflex microscopic (clean catch) Microalbumin / creatinine, urine ratio Environmental and seasonal allergies Relevant Medications cetirizine (ZyrTEC) 10 MG tablet Mixed hyperlipidemia (CMS/HCC) Relevant Medications atorvastatin (Lipitor) 80 MG tablet Other Relevant Orders Comprehensive metabolic panel Lipid panel Chronic sinusitis of both maxillary sinuses Relevant Medications fluticasone (Flonase) 50 MCG/ACT nasal spray Type 2 diabetes mellitus with diabetic peripheral angiopathy without gangrene (CMS/HCC) Cont statin, asa and risk factor modification Other Visit Diagnoses Primary hypertension (CMS/HCC) Relevant Medications amLODIPine (Norvasc) 2.5 MG tablet metoprolol tartrate (Lopressor) 50 MG tablet Gastroesophageal reflux disease, unspecified whether esophagitis present Relevant Medications omeprazole (PriLOSEC) [address] capsule Associated Problem(s): Type 2 diabetes mellitus with diabetic peripheral angiopathy without gangrene (CMS/HCC) Cont statin, asa and risk factor modification documented in this encounter [facility] 05-17-2022 Note OPERATIVE NOTE OPERATION DATE: 05/17/2022 [...] in good condition. CC: Rossana Alicia CNP [facility] 04-18-2022 Note Chief Complaint consultation for screening [...] Cholecystectomy (2013), Colonoscopy (02/22/2011), Tonsils and adenoids (1970), Dilation and curettage, EGD - Esophagogastroduodenoscopy, Excision [...] and Brother. Leukem (more content not included)... [facility] Comment on above: Result Comment: Elec tronically Signed By: FRANKLIN CORTEZ, Julian Smith\Date and Time Signed: 04/18/22 15:13 EST Evaluation + Plan note No data available for this section General Surgery [place] Evaluation note Diagnosis Moderate persistent asthma without complication (CMS/HCC) [facility] Diagnosis Type 2 diabetes mellitus without complication, without long-term current use of insulin (CMS/HCC)- Primary Primary hypertension (CMS/HCC) Unspecified essential hypertension Moderate persistent asthma without complication (CMS/HCC) Class 3 severe obesity due to excess calories with serious comorbidity in adult, unspecified BMI (CMS/HCC) Environmental and seasonal allergies Mixed hyperlipidemia (CMS/HCC) Mixed hyperlipidemia Gastroesophageal reflux disease, unspecified whether esophagitis present Encounter for screening mammogram for malignant neoplasm of breast- Primary Type 2 diabetes mellitus without complication, without long-term current use of insulin ([facility]) BMI 40.0-44.9, adult ([facility]) Moderate persistent asthma without complication (CMS/[facility]) Pulmonary emphysema, unspecified emphysema type (CMS/[facility]) Primary hypertension ([facility]) Unspecified essential hypertension Encounter for annual wellness visit (AWV) in Medicare patient Current mild episode of major depressive disorder without prior episode (HCC) ([facility]) Type 2 diabetes mellitus without complication, without long-term current use of insulin (CMS/[facility])- Primary BMI 40.0-44.9, adult ([facility]) Primary hypertension ([facility]) Unspecified essential hypertension Current mild episode of major depressive disorder without prior episode (HCC) ([facility]) Type 2 diabetes mellitus without complication, without long-term current use of insulin ([facility])- Primary Primary hypertension ([facility]) Unspecified essential hypertension Mixed hyperlipidemia ([facility]) Mixed hyperlipidemia Environmental and seasonal allergies Moderate persistent asthma without complication ([facility]/HCC) Candidiasis of skin Candidiasis of skin and nails Gastroesophageal reflux disease, unspecified whether esophagitis present Type 2 diabetes mellitus without complication, without long-term current use of insulin ([facility])- Primary Moderate persistent asthma without complication ([facility]) Obesity (BMI 30-39.9) Acute non-recurrent frontal sinusitis- Primary Environmental and seasonal allergies Non-recurrent acute suppurative otitis media of right ear without spontaneous rupture of tympanic membrane Chronic sinusitis of both maxillary sinuses- Primary Type 2 diabetes mellitus with 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, unspecified whether usp insulin use ([facility]) Peripheral vascular disease, unspecified ([facility]) Peripheral vascular disease, unspecified Type 2 diabetes mellitus without complication, without long-term current use of insulin ([facility]) Obesity (BMI 30-39.9) Type 2 diabetes mellitus without complication, without long-term current use of insulin ([facility])- Primary Type 2 diabetes mellitus with diabetic peripheral angiopathy without gangrene ([facility]) Essential hypertension Unspecified essential hypertension Mixed hyperlipidemia (CMS/HCC) Mixed hyperlipidemia Primary hypertension ([facility]) Unspecified essential hypertension Environmental and seasonal allergies Chronic sinusitis of both maxillary sinuses Moderate persistent asthma without complication ([facility]/HCC) Gastroesophageal reflux disease, unspecified whether esophagitis present Primary hypertension ([facility]) Unspecified essential hypertension documented in this encounter [facility]* Diagnosis Type 2 diabetes mellitus without complication, without long-term current use of insulin ([facility])- Primary Primary hypertension ([facility]/HCC) Unspecified essential hypertension Moderate persistent asthma without complication ([facility]) Class 3 severe obesity due to excess calories with serious comorbidity in adult, unspecified BMI ([facility]) Environmental and seasonal allergies Mixed hyperlipidemia ([facility]) Mixed hyperlipidemia Gastroesophageal reflux disease, unspecified whether esophagitis present Encounter for screening mammogram for malignant neoplasm of breast- Primary Type 2 diabetes mellitus without complication, without long-term current use of insulin ([facility]) BMI 40.0-44.9, adult ([facility]) Moderate persistent asthma without complication ([facility]) Pulmonary emphysema, unspecified emphysema type ([facility]) Primary hypertension ([facility]) Unspecified essential hypertension Encounter for annual wellness visit (AWV) in Medicare patient Current mild episode of major depressive disorder without prior episode (HCC) ([facility]) Type 2 diabetes mellitus without complication, without long-term current use of insulin ([facility])- Primary BMI 40.0-44.9, adult ([facility]) Primary hypertension ([facility]) Unspecified essential hypertension Current mild episode of major depressive disorder without prior episode (HCC) ([facility]) Type 2 diabetes mellitus without complication, without long-term current use of insulin ([facility])- Primary Primary hypertension ([facility]) Unspecified essential hypertension Mixed hyperlipidemia ([facility]) Mixed hyperlipidemia Environmental and seasonal allergies Moderate persistent asthma without complication ([facility]) Candidiasis of skin Candidiasis of skin and nails Gastroesophageal reflux disease, unspecified whether esophagitis present Type 2 diabetes mellitus without complication, without long-term current use of insulin ([facility])- Primary Moderate persistent asthma without complication ([facility]) Obesity (BMI 30-39.9) Acute non-recurrent frontal sinusitis- Primary Environmental and seasonal allergies Non-recurrent acute suppurative otitis media of right ear without spontaneous rupture of tympanic membrane Chronic sinusitis of both maxillary sinuses- Primary Type 2 diabetes mellitus with 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, 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 ([facility]) Peripheral vascular disease, unspecified ([facility]) Peripheral vascular disease, unspecified Type 2 diabetes mellitus without complication, without long-term current use of insulin (CMS/HCC) Obesity (BMI 30-39.9) Type 2 diabetes mellitus without complication, without long-term current use of insulin (CMS/HCC)- Primary Type 2 diabetes mellitus with diabetic peripheral angiopathy without gangrene (CMS/HCC) Essential hypertension Unspecified essential hypertension Mixed hyperlipidemia (CMS/HCC) Mixed hyperlipidemia Primary hypertension (CMS/HCC) Unspecified essential hypertension Environmental and seasonal allergies Chronic sinusitis of both maxillary sinuses Moderate persistent asthma without complication (CMS/HCC) Gastroesophageal reflux disease, unspecified whether esophagitis present Moderate persistent asthma without complication (CMS/HCC) Type 2 diabetes mellitus without complication, without long-term current use of insulin (CMS/HCC) documented in this encounter [facility]* Diagnosis Type 2 diabetes mellitus without complication, without long-term current use of insulin (CMS/HCC)- Primary Primary hypertension (CMS/HCC) Unspecified essential hypertension Moderate persistent asthma without complication (CMS/HCC) Class 3 severe obesity due to excess calories with serious comorbidity in adult, unspecified BMI (CMS/HCC) Environmental and seasonal allergies Mixed hyperlipidemia (CMS/HCC) Mixed hyperlipidemia Gastroesophageal reflux disease, unspecified whether esophagitis present Encounter for screening mammogram for malignant neoplasm of breast- Primary Type 2 diabetes mellitus without complication, without long-term current use of insulin (CMS/HCC) BMI 40.0-44.9, adult ([facility]) Moderate persistent asthma without complication (CMS/HCC) Pulmonary emphysema, unspecified emphysema type (CMS/HCC) Primary hypertension (CMS/HCC) Unspecified essential hypertension Encounter for annual wellness visit (AWV) in Medicare patient Current mild episode of major depressive disorder without prior episode (HCC) (CMS/HCC) Type 2 diabetes mellitus without complication, without long-term current use of insulin (CMS/HCC)- Primary BMI 40.0-44.9, adult (CMS/HCC) Primary hypertension (CMS/HCC) Unspecified essential hypertension Current mild episode of major depressive disorder without prior episode (HCC) (CMS/HCC) Type 2 diabetes mellitus without complication, without long-term current use of insulin (CMS/HCC)- Primary Primary hypertension (CMS/HCC) Unspecified essential hypertension Mixed hyperlipidemia (CMS/HCC) Mixed hyperlipidemia Environmental and seasonal allergies Moderate persistent asthma without complication (CMS/HCC) Candidiasis of skin Candidiasis of skin and nails Gastroesophageal reflux disease, unspecified whether esophagitis present Type 2 diabetes mellitus without complication, without long-term current use of insulin ([facility])- Primary Moderate persistent asthma without complication (CMS/HCC) Obesity (BMI 30-39.9) Acute non-recurrent frontal sinusitis- Primary Environmental and seasonal allergies Non-recurrent acute suppurative otitis media of right ear without spontaneous rupture of tympanic membrane Chronic sinusitis of both maxillary sinuses- Primary Type 2 diabetes mellitus with 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, unspecified whether usp insulin use ([facility]) Peripheral vascular disease, unspecified ([facility]) Peripheral vascular disease, unspecified Type 2 diabetes mellitus without complication, without long-term current use of insulin ([facility]) Obesity (BMI 30-39.9) Type 2 diabetes mellitus without complication, without long-term current use of insulin ([facility])- Primary Type 2 diabetes mellitus with diabetic peripheral angiopathy without gangrene ([facility]) Essential hypertension Unspecified essential hypertension Mixed hyperlipidemia (CMS/HCC) Mixed hyperlipidemia Primary hypertension ([facility]) Unspecified essential hypertension Environmental and seasonal allergies Chronic sinusitis of both maxillary sinuses Moderate persistent asthma without complication ([facility]) Gastroesophageal reflux disease, unspecified whether esophagitis present Type 2 diabetes mellitus without complication, without long-term current use of insulin ([facility])- Primary Obstructive sleep apnea syndrome Obstructive sleep apnea (adult) (pediatric) Pulmonary emphysema, unspecified emphysema type ([facility]) Moderate persistent asthma without complication ([facility]) Essential hypertension Unspecified essential hypertension Obesity (BMI 30-39.9) Current mild episode of major depressive disorder without prior episode (HCC) ([facility]) Mixed hyperlipidemia (CMS/HCC) Mixed hyperlipidemia Primary hypertension ([facility]) Unspecified essential hypertension Environmental and seasonal allergies Gastroesophageal reflux disease, unspecified whether esophagitis present Hypoglycemia Hypoglycemia, unspecified Needs flu shot Need for prophylactic vaccination and inoculation against influenza documented in this encounter [facility] note* Diagnosis Type 2 diabetes mellitus without complication, without long-term current use of insulin ([facility])- Primary Type 2 diabetes mellitus with diabetic peripheral angiopathy without gangrene ([facility]) Essential hypertension Unspecified essential hypertension Mixed hyperlipidemia (CMS/HCC) Mixed hyperlipidemia Primary hypertension ([facility]/HCC) Unspecified essential hypertension Environmental and seasonal allergies Chronic sinusitis of both maxillary sinuses Moderate persistent asthma without complication ([facility]) Gastroesophageal reflux disease, unspecified whether esophagitis present documented in this encounter [facility]* Diagnosis Type 2 diabetes mellitus without complication, without long-term current use of insulin ([facility])- Primary documented in this encounter [facility] Discharge instructions No data available for this section General Surgery [place] Progress note No data available for this section General Surgery [place] Summary Purpose Family History No Family History Records FoundNo Family History Records FoundNo Family History Records Found Advance Directives No Advanced Directives Records FoundNo Advanced Directives Records FoundNo Advanced Directives Records Found Additional Source Comments Patient Care team informatio n (unrecognized section and content) Teacher Public Health Relationship Specialty Start Date End Date Kuldip Cisneros MD PCP - General Family Medicine 09/15/22 Teacher Public Health Relationship Specialty Start Date End Date Kuldip Cisneros MD [address] [place] [phone] PCP - General Family Medicine 05/21/23 Kuldip Cisneros MD [address] [place] [phone] PCP - Aet 05/25/23 Rossana Alicia NP [address] [place] [phone] Nurse Practitioner Family Medicine 05/21/23 Teacher Public Health Relationship Specialty Start Date End Date Kuldip Cisneros MD [address] [place] [phone] PCP - General Family Medicine 05/21/23 Kuldip Cisneros MD [address] [place] [phone] PCP - [employer] 05/25/23 Rossana Alicia NP [address] [place] [address] Nurse Practitioner Family Medicine 05/21/23 Teacher Public Health Relationship Specialty Start Date End Date Kuldip Cisneros MD [address] [place] [address] PCP - General Family Medicine 05/21/23 Kuldip Cisneros MD [address] [place] [phone] PCP - [employer] 05/25/23 Rossana Alicia NP [address] [place] [phone] Nurse Practitioner Family Medicine 05/21/23 Teacher Public Health Relationship Specialty Start Date End Date Kuldip Cisneros MD [address] [place] [phone] PCP - General Family Medicine 05/21/23 Kuldip Cisneros MD [address] [place] [phone] PCP - [employer] 05/25/23 Rossana Alicia NP [address] [place] [phone] Nurse Practitioner Family Medicine 05/21/23 Teacher Public Health Relationship Specialty Start Date End Date Kuldip Cisneros MD [address] [place] [address] PCP - General Family Medicine 05/21/23 Kuldip Cisneros MD [address] [place] [address] PCP - [employer] 05/25/23 Rossana Alicia NP [address] [place] [address] Nurse Practitioner Family Medicine 05/21/23 Teacher Public Health Relationship Specialty Start Date End Date Kuldip Cisneros MD [address] [place] [address] PCP - General Family Medicine 05/21/23 Kuldip Cisneros MD [address] [place] [address] PCP - [employer] 05/25/23 Rossana Alicia NP [address] [place] [address] Nurse Practitioner Family Medicine 05/21/23 Teacher Public Health Relationship Specialty Start Date End Date Kuldip Cisneros MD [address] [place] [address] PCP - General Family Medicine 05/21/23 Kuldip Cisneros MD [address] [place] [address] PCP - [employer] 05/25/23 Rossana Alicia NP [address] [place] [phone] Nurse Practitioner Family Medicine 05/21/23 Teacher Public Health Relationship Specialty Start Date End Date Kuldip Cisneros MD [address] [place] [phone] PCP - General Family Medicine 05/21/23 Kuldip Cisneros MD [address] [place] [phone] PCP - [employer] 05/25/23 Rossana Alicia NP [address] [place] [phone] Nurse Practitioner Family Medicine 05/21/23 Teacher Public Health Relationship Specialty Start Date End Date Kuldip Cisneros MD [address] [place] [phone] PCP - General Family Medicine 05/21/23 Kuldip Cisneros MD [address] [place] [phone] PCP - [employer] 05/25/23 Rossana Alicia NP [address] [place] [phone] Nurse Practitioner Family Medicine 05/21/23 INFORMATION SOURCE (unrecogn ized section and content) DATE CREATED AUTHOR 06/01/2022 [facility] DATE CREATED AUTHOR AUTHOR'S ORGANIZ ATION 06/16/2022 [facility] DATE CREATED AUTHOR AUTHOR'S ORGANIZ ATION 03/09/2024 [facility] EPIC Reason for Visit (unrecogniz ed section and content) Reason Comments Med Refill Reason Comments Diabetes FOR RECORDS PERTAINING TO PATIENTS WHO ARE [...] BE BASED ON THE PRIMARY CLINICAL RECORDS. [facility]. provides no warranty or guarantee of the accuracy or completeness of information in this document.
[2024-03-18 10:47] LABS: Estimated Average Glucose 217 mg/dL; Glycohemoglobin A1C 9.2 % (4.5-6.2)
== END 2024-03-18 10:09 | disposition home or self-care (01) ==
LOC: LAB 10:09
PROVIDERS: PCP Nurse Practitioner; Visit Provider Nurse Practitioner
DX: E11.9 Type 2 diabetes mellitus without complications (principal)
CPT/HCPCS: 36415; 83036

== ENCOUNTER 2024-06-21 09:05 | Outpatient (OUT) | payer MEDICARE, SELFPAY ==
--- OUTSIDE RECORDS SUMMARY | 2024-06-21 09:09 | XMS_ITS | CCD ---
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 Role Phone ROSSANA ALICIA Primary Care Physician Julian BONILLA Attending Unavailable NILLJulian Attending Unavailable AICHALFONZO, ROSSANA Glass Referring Unavailable NILJulian Khoury Attending Unavailable NILJulian Khoury Attending Unavailable AICHHOLZ, ROSSANA J Referring Unavailable AICHHOLZ, ROOFER ASSISTANT ROSSANA Admitting Unavailable AICHHOLZ, ROOFER ASSISTANT ROSSANA Attending Unavailable AICHHOLZ, ROOFER ASSISTANT ROSSANA Consulting Unavailable AICHHOLZ, ROOFER ASSISTANT ROSSANA Primary Care Unavailable NILL ., DR GUERRA Attending Unavailable NILL ., DR GUERRA Consulting Unavailable NILL ., DR GUERRA Admitting Unavailable AICHHOLZ, ROOFER ASSISTANT ROSSANA Primary Care Unavailable GURPREET II, PHILIP Consulting Unavailable CIERRA MAGANA Consulting Unavailable AICHHOLZ, ROOFER ASSISTANT ROSSANA Admitting Unavailable AICHHOLZ, ROOFER ASSISTANT ROSSANA Attending Unavailable AICHHOLZ, ROOFER ASSISTANT ROSSANA Consulting Unavailable AICHHOLZ, ROOFER ASSISTANT ROSSANA Primary Care Unavailable AICHHOLZ, ROOFER ASSISTANT ROSSANA Primary Care Unavailable AICHHOLZ, ROOFER ASSISTANT ROSSANA Admitting Unavailable AICHHOLZ, ROOFER ASSISTANT ROSSANA Attending Unavailable AICHHOLZ, ROOFER ASSISTANT ROSSANA Consulting Unavailable AICHHOLZ, ROOFER ASSISTANT ROSSANA Primary Care Unavailable BOBBY, DR RUDDY Nguyen Consulting Unavailable AICHHOLZ, ROOFER ASSISTANT ROSSANA Admitting Unavailable AICHHOLZ, ROOFER ASSISTANT ROSSANA Attending Unavailable AICHHOLZ, ROOFER ASSISTANT ROSSANA Consulting Unavailable Amelia CORTEZ, Kuldip Primary Care Provider Kuldip Cisneros MD Primary Care Provider Aichholz SEISMIC ENGINEER, Rossana Unavailable Amelia CORTEZ, Kuldip Unavailable AICHHOLZ, ROSSANA Attending Unavailable AICHHOLZ, ROSSANA Attending Unavailable MARAL, ROSSANA Attending Unavailable MARAL, ROSSANA Attending Unavailable MARAL, ROSSANA Attending Unavailable MARAL, ROSSANA Attending Unavailable MARAL, ROSSANA Attending Unavailable CIERRA DRUMMOND Attending Unavailable CIERRA DRUMMOND Referring Unavailable Allergies Allergy Classification Reported Allergen(s) Allergy Type Date of Onset Reaction(s) Facility (20 sources) Cefaclor; Translations: [cefaclor] Drug Allergy 9 Abnormal breathing (finding), Hives, Shortness of breath [facility] (3 sources) Penicillin; Translations: [penicillin] Drug Allergy Weal (disorder), Abnormal breathing (finding) [facility] (3 sources) Streptococcus pneumoniae type 1 [...] vaccine] Drug Allergy Dyspnea (finding), Weal (disorder) [facility] [place] (1 source) Cefaclor Drug Allergy 4 [facility] (1 source) Penicillins Drug allergy (disorder) 4 [facility] (1 source) Pneumovax 23 Drug allergy (disorder) 4 [facility] (20 sources) Penicillins Drug Allergy 3 Hives, Shortness of breath [facility] (20 sources) Pneumococcal vaccine Drug Allergy 3 Hives, Shortness of breath [facility] Medications Current Medications Medication Drug Class(es) Dates Sig (Normalized) Sig (Original) [id number] 200 actuat albuterol 0.09 mg/actuat metered dose inhaler (20 sources) beta2-Adrenergic Agonist Start: 08-16-2023 End: 01-24-2024 [...] 06/03/2023 Active amLODIPine 2.5 mg oral tablet (20 sources) Dihydropyridine Calcium Channel Miriam Start: 07-05-2023 End: 09-10-2024 take 1 tablet by mouth once daily amLODIPine (Norvasc) 2.5 MG tablet Indications: Primary hypertension (CMS/HCC) Take 1 tablet (2.5 mg) by mouth Daily Take by mouth Daily. 90 tablet 1 06/12/2024 09/10/2024 Active Start: 02-26-2023 End: 05-27-2023 take 1 tablet by mouth in the morning amLODIPine (Norvasc) 2.5 MG tablet Indications: Primary hypertension (CMS/HCC) Take 1 tablet (2.5 mg) by mouth in the morning. Take by mouth Daily.. 90 tablet 1 02/26/2023 05/27/2023 Active Start: 03-13-2019 Norvasc 2.5 mg Tab Refills(s) 0 Start Date: 03/13/19 Status: Ordered aspirin 81 mg delayed release oral tablet (20 sources) Platelet Aggregation Inhibitor, Nonsteroidal Anti-inflammatory Drug Start: 11-05-2023 End: 09-10-2024 take 1 tablet by mouth once daily aspirin (Aspirin Low Dose) 81 MG EC tablet Indications: Essential (primary) hypertension (CMS/HCC) , Type 2 diabetes mellitus without complication, without long-term current use of insulin (CMS/HCC) Take 1 tablet (81 mg) by mouth Daily 90 tablet 1 06/12/2024 09/10/2024 Active Start: 02-26-2023 End: 05-27-2023 take 1 [...] Status: Ordered atorvastatin 80 mg oral tablet (20 sources) HMG-CoA Reductase Inhibitor Start: 07-05-2023 End: 09-10-2024 take 1 tablet by mouth in the evening atorvastatin (Lipitor) 80 MG tablet Indications: Type 2 diabetes mellitus without complication, without long-term current use of insulin (CMS/HCC) , Mixed hyperlipidemia (CMS/HCC) Take 1 tablet (80 mg) by mouth in the evening 90 tablet 1 06/12/2024 09/10/2024 Active Start: 02-26-2023 End: 05-27-2023 take 1 [...] Ordered cetirizine hydrochloride 10 mg oral tablet (20 sources) Histamine-1 Receptor Antagonist Start: 07-05-2023 End: 09-10-2024 take 1 tablet by mouth once daily cetirizine (ZyrTEC) 10 MG tablet Indications: Environmental and seasonal allergies Take 1 tablet (10 mg) by mouth Daily 90 tablet 1 06/12/2024 09/10/2024 Active Start: 02-26-2023 End: 05-27-2023 take 1 [...] bedtime. 03/06/2024 Discontinued (Therapy completed) Continuous Glucose Annealer (Dexcom G7 Annealer) device (13 sources) Start: 03-06-2024 End: 06-12-2024 Continuous Glucose Annealer (Dexcom G7 Annealer) device Indications: Type 2 diabetes mellitus without complication, without long-term current use of insulin (CMS/HCC) , Hypoglycemia 1 each Daily 1 each 03/06/2024 06/12/2024 Discontinued (Therapy completed) Start: 03-06-2024 End: 03-06-2024 Continuous Glucose Annealer (Dexcom G7 Annealer) device Indications: Type 2 diabetes mellitus without complication, without long-term current use of insulin (CMS/HCC) , Hypoglycemia 1 each Daily 1 each 03/06/2024 03/06/2024 Discontinued (Reorder) Start: 03-06-2024 End: 03-06-2025 Continuous Glucose Annealer (Dexcom G7 Annealer) device Indications: Type 2 diabetes mellitus without complication, without long-term current use of insulin (CMS/HCC) , Hypoglycemia 1 each Daily 1 each 03/06/2024 03/06/2025 Active End: 03-06-2024 Continuous Glucose Annealer (Dexcom G7 Annealer) device 1 each Daily 03/06/2024 Discontinued (Reorder) Continuous Glucose Sensor (Dexcom G7 Sensor) misc (8 sources) Start: 03-06-2024 End: 04-05-2024 Continuous Glucose Sensor (D excom G7 Sensor) misc Indications: Type 2 diabetes mellitus without complication, without long-term current use of insulin (CMS/HCC) , Hypoglycemia 1 each Daily 3 each 11 03/06/2024 04/05/2024 Active End: 03-06-2024 Continuous Glucose Sensor (D excom G7 Sensor) mis 1 each Daily 03/06/2024 Discontinued (Reorder) dapagliflozin 10 mg oral tablet (20 sources) Sodium-Glucose Cotransporter 2 Inhibitor Start: 08-16-2023 End: 09-10-2024 take 1 tablet by mouth once daily dapagliflozin (Farxiga) 10 MG Indications: Type 2 diabetes mellitus without complication, without long-term current use of insulin ([facility]) Take 1 tablet (10 mg) by mouth Daily 90 tablet 1 06/12/2024 09/10/2024 Active 0.5 ml dulaglutide 1.5 mg/ml auto-injector [...] complication, without long-term current use of insulin ([facility]) Inject 3 mg under the [...] / vilanterol 0.025 mg/actuat dry powder inhaler (20 sources) Corticosteroid, beta2-Adrenergic Agonist Start: 07-05-2023 End: 09-10-2024 take 1 puff(s) by mouth once daily Fluticasone Furoate-Vilantero l (Breo Ellipta) 200-25 MCG/ACT aerosol powder Indications: Moderate persistent asthma without complication (CMS/HCC) Inhale 1 puff Daily Rinse mouth after use 3 each 1 06/12/2024 09/10/2024 Active Start: 02-26-2023 End: 05-27-2023 take 1 [...] Status: Ordered hydroCHLOROthiazide 25 mg oral tablet (20 sources) Thiazide Diuretic Start: 01-17-2024 End: 09-10-2024 take 1 tablet by mouth once daily hydroCHLOROthiazide (HYDRODiuril) 25 MG tablet Indications: Primary hypertension (CMS/HCC) Take 1 tablet (25 mg) by mouth Daily 90 tablet 1 06/12/2024 09/10/2024 Active Start: 07-05-2023 End: 12-05-2023 take 1 [...] Ordered metFORMIN hydrochloride 500 mg oral tablet (20 sources) Biguanide Start: 07-05-2023 End: 09-10-2024 take 1 tablet by mouth in the morning metFORMIN (Glucophage) 500 MG tablet Indications: Type 2 diabetes mellitus without complication, without long-term current use of insulin (CMS/HCC) Take 1 tablet (500 mg) by mouth in the morning and 1 tablet (500 mg) in the evening. Take with meals. 180 tablet 1 06/12/2024 09/10/2024 Active Start: 02-26-2023 End: 05-27-2023 take 1 [...] Ordered metoprolol tartrate 50 mg oral tablet (20 sources) beta-Adrenergic Miriam Start: 07-05-2023 End: 09-10-2024 take 1 tablet by mouth in the morning metoprolol tartrate (Lopressor) 50 MG tablet Indications: Primary hypertension (CMS/HCC) Take 1 tablet (50 mg) by mouth in the morning and 1 tablet (50 mg) before bedtime. 180 tablet 1 06/12/2024 09/10/2024 Active Start: 02-26-2023 End: 05-27-2023 take 1 [...] Refills(s) 0 Start Date: 08/15/18 Status: Ordered Mounjaro 7.5 MG/0.5ML solution auto-injector (3 sources) Start: 05-26-2024 Mounjaro 7.5 M G/0.5ML solution auto-injector Inject 7.5 mg as directed every 7 (seven) days 05/26/2024 Active nystatin 100 unt/mg topical powder (5 sources) Polyene Antifungal Start: 04-01-2024 Nystop 1000 00 UNIT/GM powder APPLY TO AFFECTED AREA TWICE A DAY FOR 15 DAYS 04/01/2024 Active Start: 12-12-2022 Nyamyc [id number] UNIT/GM powder Apply 1 application topically in the morning and 1 application before bedtime. to affected area. 0 12/12/2022 Active nystatin topical 100,000 units/g powder (2 sources) Start: 08-15-2018 nystatin topical 100,000 units/g powder danny, Topical, TID, Refill(s) 0 Start Date: 08/15/18 Status: Ordered omeprazole 20 mg delayed release oral capsule (20 sources) Proton Pump Inhibitor Start: 07-05-2023 End: 09-10-2024 take 1 capsule by mouth before mealtime omeprazole (PriLOSEC) [address] capsule Indications: Gastroesophageal reflux disease, unspecified whether esophagitis present Take 1 capsule (20 mg) by mouth in the morning. Take before meals. 90 capsule 1 06/12/2024 09/10/2024 Active Start: 02-26-2023 End: 05-27-2023 take 1 [...] major depressive disorder without prior episode (HCC) (CMS/[facility]) Take 1 tablet (50 mg) by mouth [...] complication, without long-term current use of insulin (CMS/[facility]) Inject 5 mg under the skin every 7 (seven) days 6 mL 1 12/18/2023 03/06/2024 Discontinued (Therapy completed) Start: 12-18-2023 End: 03-11-2024 Tirzepatide (Mounjaro) 5 MG/ 0.5ML solution pen-injector Indications: Type 2 diabetes mellitus without complication, without long-term current use of insulin ([facility]) Inject 5 mg under the skin every 7 (seven) days 6 mL 1 12/18/2023 03/11/2024 Active Tirzepatide (Mounjaro) 7.5 MG/0.5ML solution auto-injector (7 sources) Start: 03-06-2024 End: 05-29-2024 Tirzepatide (Mounjaro) [...] 22 tablet 10/04/2023 12/05/2023 Discontinued (Therapy completed) Glucose Blood (FREESTYLE LITE TEST ) (1 source) End: 2024 Glucose Blood (FREESTYLE LITE TEST ) 1 each by In Vitro route Daily 2024 Discontinued (Reorder) semaglutide 7 mg oral tablet (6 sources) [...] Chronic Chronic obstructive pulmonary disease and bronchiectasis (20 sources) Pulmonary emphysema; Translations: [Emphysema, unspecified] Onset: 12-23-2021 Resolved: 06-12-2024 03-13-2019 Chronic Diabetes mellitus with complications (20 sources) Type 2 diabetes mellitus with diabetic peripheral angiopathy without gangrene; Translations: [Type 2 diabetes mellitus with peripheral angiopathy] Onset: 05-23-2022 12-05-2023 Chronic Diabetes mellitus without complication (20 sources) Diabetes mellitus; Translations: [Type 2 diabetes mellitus without complications] Onset: 12-21-2021 03-13-2019 Chronic Disorders of lipid metabolism (20 sources) Hyperlipidemia; Translations: [Hyperlipidemia, unspecified] Onset: 05-23-2022 04-14-2022 Chronic Esophageal disorders (6 sources) Gastroesophageal reflux disease; Translations: [Gastro-esophageal reflux disease without esophagitis] 03-06-2024 Chronic Essential hypertension (20 sources) Benign essential hypertension; Translations: [Essential (primary) hypertension] Onset: 05-23-2022 Resolved: 12-05-2023 08-15-2018 Chronic Mood disorders (20 sources) Mild major depression, single episode; Translations: [Major depressive disorder, single episode, mild] Onset: 04-10-2023 04-10-2023 Chronic Other aftercare (1 source) 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; Translations: [HALFWAY CURRENT USE OF ASPIRIN] Onset: 05-23-2022 Episodic Other aftercare (1 source) [employer] (current) use of oral hypoglycemic drugs; Translations: [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 ORAL HYPOGLYCEMIC DX] Onset: 05-23-2022 Episodic [...] OF TRANSVERSE COLON] Onset: 05-23-2022 Episodic Other connective tissue disease (2 sources) Pain of toe of left foot; Translations: [Pain in left toe(s)] 04-03-2024 Episodic Other connective tissue disease (2 sources) Capsulitis; Translations: [Other enthesopathy of left foot and ankle] 04-03-2024 Episodic Other connective tissue disease (2 sources) Swelling of toe of left foot; Translations: [Other specified soft tissue disorders] 04-03-2024 Episodic Other endocrine disorders (12 sources) Hypoglycemia; Translations: [Hypoglycemia, unspecified] Onset: 03-06-2024 [...] Chronic Other nutritional; endocrine; and metabolic disorders (20 sources) Body mass index 40+ - severely obese; Translations: [Body mass index (BMI) 40.0-44.9, adult] Onset: 04-10-2023 04-10-2023 Chronic Other nutritional; endocrine; and metabolic disorders (20 sources) Body mass index 30+ - obesity; Translations: [Obesity, unspecified] Onset: 08-16-2023 Resolved: 06-12-2024 08-16-2023 Chronic Other nutritional; endocrine; and metabolic disorders (5 sources) Obesity caused by energy imbalance; Translations: [Morbid (severe) obesity due to excess calories] Onset: 06-12-2024 06-12-2024 Chronic Other screening for suspected conditions (not mental disorders or infectious disease) (20 sources) Screening for malignant neoplasm of colon done; Translations: [Encounter for screening for malignant neoplasm of colon] Onset: 04-18-2022 Episodic Other skin disorders (2 sources) Dystrophia unguium; Translations: [Nail dystrophy] 04-03-2024 Episodic Other upper respiratory disease (20 sources) Allergic disposition; Translations: [Other allergic rhinitis] Onset: 02-26-2023 02-26-2023 Chronic Other upper respiratory disease (2 sources) Hoarse 04-14-2022 Episodic Other upper respiratory infections (20 sources) Chronic bilateral maxillary sinusitis; Translations: [Chronic maxillary sinusitis] Onset: 10-01-2023 10-01-2023 Chronic Peripheral and visceral atherosclerosis (2 sources) Peripheral vascular disease 04-14-2022 Chronic Residual codes; unclassified (20 sources) Sleep apnea; Translations: [Sleep apnea, unspecified] Onset: 04-10-2023 04-14-2022 Chronic Residual codes; unclassified (1 source) Sleep apnea, unspecified; Translations: [SLEEP APNEA UNSPECIFIED] Onset: 05-23-2022 Chronic Residual codes; unclassified (4 sources) Obstructive sleep apnea syndrome; Translations: [Obstructive [...] Classification Problem Date Documented Da te Episodic/Chronic Immunizations and screening for infectious disease (12 sources) Needs influenza immunization; Translations: [Encounter for immunization] Onset: 03-06-2024 03-06-2024 Episodic Mood disorders (20 sources) Mood disorders Onset: 04-10-2023 Resolved: 06-12-2024 04-10-2023 Mycoses (19 sources) Candidiasis of skin; Translations: [Candidiasis of skin and nail] Onset: 07-03-2023 07-03-2023 Episodic Other nutritional; endocrine; and metabolic disorders (20 sources) Severe obesity; Translations: [Morbid (severe) obesity due to excess calories] Onset: 02-26-2023 Resolved: 08-16-2023 02-26-2023 Chronic Other upper respiratory infections (19 sources) Acute frontal sinusitis; Translations: [Acute frontal sinusitis, unspecified] Onset: 09-12-2023 Resolved: 06-12-2024 09-12-2023 Episodic Otitis media and related conditions (19 sources) Acute suppurative otitis media without spontaneous rupture of ear drum; Translations: [Acute suppurative otitis media without spontaneous rupture of ear drum, right ear] Onset: 09-12-2023 Resolved: 06-12-2024 09-12-2023 Episodic Unclassified (1 source) CONTACT W/AND (SUSP) EXPOS COVID-19; Translations: [CONTACT W/AND (SUSP) EXPOS COVID-19] Onset: 09-01-2021 Results Test Name Value Interpretation Reference Range Facility XR Foot - left 3 [facility] Result: 3 views foot: AP, MO, and LO of the left foot were taken and show no acute fractures or osseous abnormalities, specifically of L 5th digit. The lesser digits are contracted. Incidental finding of accessory ossicle medial to the navicular tuberosity. AP view shows splaying of 3rd and 4th digits and evidence of old, healed 3rd metatarsal distal shaft fracture. [facility] Radiology Study observation (narrative) [facility] MLR HEMOGLOBIN A1Con 024 Glucose [Mass/Vol] 217 mg/dL [facility] HbA1c (Bld) [Mass fraction] 9.2 % High 4.5 - 6.2 % [facility] Comment on above: ADA RECOMMENDED LIMI T 4.0 - 6.0 ADA THERAPEUTIC TARGET < 7.0 ACTION SUGGESTED > 7.0 Interpretation and review of laboratory results Abnormal [facility] ALL CBC WITH AUTO DIFFon BASOPHILS ABSOLUTE AUTO 0.0 [facility] Basophils/100 WBC (Bld) 0.5 % 0.2 - 2.0 % [facility] Eosinophils/100 WBC (Bld) 1.4 % 0.9 - 7.0 % [facility] Erythrocyte distribution width (RBC) [Ratio] 14.4 % 11.0 - 15.0 % [facility] Hematocrit (Bld) [Volume fraction] 43.2 % 36.0 - 48.0 % [facility] Hemoglobin (Bld) [Mass/Vol] 13.4 g/dL 12.0 - 16.0 g/dL [facility] IMMATURE GRANULOCYTES ABS AUTO 0.07 High [facility] Immature granulocytes/100 WBC (Bld) 1.2 % High 0.0 - 0.5 % [facility] Interpretation and review of laboratory results Abnormal [facility] LYMPHOCYTES ABSOLUTE AUTO 1.8 [facility] Lymphocytes/100 WBC (Bld) 31.6 % 20.5 - 60.0 % [facility] MCH (RBC) [Entitic mass] 28.0 pg 26.7 - 34.0 pg [facility] MCHC (RBC) [Mass/Vol] 31.0 g/dL 29.9 - 35.2 g/dL [facility] MCV (RBC) [Entitic vol] 90.4 fL 81.0 - 99.0 fL [facility] MONOCYTES ABSOLUTE AUTO 0.3 [facility] Monocytes/100 WBC (Bld) 5.8 % 1.7 - 12.0 % [facility] NEUTROPHILS ABSOLUTE AUTO 3.4 [facility] Neutrophils/100 WBC (Bld) 59.5 % 43.0 - 75.0 % [facility] Platelet mean volume (Bld) [Entitic vol] 8.5 fL Low 9.5 - 13.5 fL [facility] EO # 0.1 [facility] PLT 255 [facility] RBC 4.78 [facility] WBC 5.7 [facility] MLR HEMOGLOBIN A1Con 024 Glucose [Mass/Vol] 232 mg/dL [facility] HbA1c (Bld) [Mass fraction] 9.7 % High 4.5 - 6.2 % [facility] Comment on above: ADA RECOMMENDED LIMI T 4.0 - 6.0 ADA THERAPEUTIC TARGET < 7.0 ACTION SUGGESTED > 7.0 Interpretation and review of laboratory results Abnormal [facility] MG MAMM SCREEN 3D JOSE CADon 06-07-2022 MG MAMM SCREEN 3D JOSE CAD Patient: JAYE BEAVERS Exam Date: 06/07/2022 : 1955 Gender:F Ordering : RNO ALICIA CNP Admission #: [id number] Family : Order #: [id number] CLICK HERE TO VIEW EXAM RADIOLOGY REPORT [...] skin cancer at age 60. LOCATION: [facility] BREAST COMPOSITION: Scattered areas fibroglandular density. [...] MD on 06/07/2022 at 13:35 Normal [facility] Ambulatory Visit Summaryon 0 05-31-2022 Ambulatory [...] adenoma of colon Tubular adenoma of colon Minerva Escobar [facility] General Surgery Office/Clini c Noteon 05-31-2022 [...] Sister. Immunizations Vaccine Date Status Comments SARSCoV2 mRNA(gvojxaugl-ieid-brercy) vac 08/18/2021 Recorded SARS-CoV-2 (COVID-19) mRNA BNT-162b2 vax 01/10/2021 Recorded influenza virus vaccine, inactivated 12/14/2020 Recorded SARS-CoV-2 (COVID-19) mRNA BNT-162b2 vax 06/18/2020 Recorded SARS-CoV-2 (COVID-19) mRNA BNT-162b2 vax 05/29/2020 Recorded 2022-04-18: TPV65 influenza virus vaccine, live, trivalent 12/30/2018 Recorded Normal [facility] Comment on above: Result Comment: Elec tronically Signed By: FRNAKLIN CORTEZ, Julian Smith\Date and Time Signed: 05/31/22 14:36 EST Reminderson 05-31-2022 Reminders - From: Billie Curtis LPN To: N - Clinical; Sent: 05/31/2022 16:01:22 EST Show up: 04/16/2027 07:00:00 EST Subject: colonoscopy recall Due Date/Time: 05/17/2027 07:00:00 EST Reminder/Recall Patient is due for colonoscopy 05/17/27 due to history of colonic polyps. Normal [facility] Pathology Noteon 05-19-2022 Pathology Note [id number]#[id number]:127 Normal [facility] Outside Colonoscopyon 2022 Outside Colonoscopy [id number]#1.00CD:127 [facility] POINT OF CARE GLUCOSEon 04-27 Glucose [Mass/Vol] 176 mg/dL Critically high 74-106 [facility] Comment on above: Performed By: #### P OCGLUC ####[facility] [address] [place], [place] [address]HyMavis Estrella Pre-Certification Formon Pre-Certification Form [id number]#[id number]:127 Normal [facility] Facesheeton 04-20-2022 Facesheet [id number]#1.00CD:127 [facility] Consent for Procedure/Surger yon 04-19-2022 Consent for Procedure/Surgery [id number]#1.00CD:127 Normal [facility] Physician Referralon 023 Physician Referral [id number]#1.00CD:127 Normal [facility] Physician Referralon 023 Physician Referral [id number]#1.00CD:127 Normal [facility] MICROALBUMIN URINEon 022 Albumin, Urine <3.0 Normal Not Estab. [facility] Comment on above: Result Comment: Ve rified by repeat analysis Performed By: #### M ALBLC #### [facility] [address] [place] [address] Dr. Aga Estrella CBC AUTO DIFFon 12-21-2021 BASO # 0.0 103/ul Normal 0.0-0.1 [facility] Comment on above: Performed By: #### C BC #### [facility] [address] [place] [address] Dr. Aga Estrella Basophils/100 WBC (Bld) 0.4 % Normal 0.2-2.0 [facility] Comment on above: Performed By: #### C BC #### [facility] [address] [place] [address] Dr. Aga Estrella EO # 0.1 103/ul Normal 0.0-0.7 [facility] Comment on above: Performed By: #### C BC #### [facility] [address] [place] [address] Dr. Aga Estrella Eosinophils/100 WBC (Bld) 1.6 % Normal 0.9-7.0 [facility] Comment on above: Performed By: #### C BC #### [facility] [address] [place] [address] Dr. Aga Estrella Erythrocyte distribution width (RBC) [Ratio] 14.2 % Normal 11.0-15.0 [facility] Comment on above: Performed By: #### C BC #### [facility] [address] [place] [address] Dr. Aga Estrella Hematocrit (Bld) [Volume fraction] 42.1 % Normal 36.0-48.0 [facility] Comment on above: Performed By: #### C BC #### [facility] [address] [place] [address] Dr. Aga Estrella Hemoglobin (Bld) [Mass/Vol] 13.1 g/dL Normal 12.0-16.0 [facility] Comment on above: Performed By: #### C BC #### [facility] [address] [place] [address] Dr. Aga Estrella IG # 0.02 10e3/ul Normal 0.00-0.03 [facility] Comment on above: Performed By: #### C BC #### [facility] [address] [place] [address] Dr. Aga Estrella IG % 0.4 % Normal 0.0-0.5 [facility] Comment on above: Performed By: #### C BC #### [facility] [address] [place] [address] Dr. Aga Estrella LYMPH # 1.7 103/ul Normal 1.2-3.8 [facility] Comment on above: Performed By: #### C BC #### [facility] [address] [place] [address] Dr. Aga Estrella Lymphocytes/100 WBC (Bld) 29.4 % Normal 20.5-60.0 [facility] Comment on above: Performed By: #### C BC #### [facility] [address] [place] [address] Dr. Aga Estrella MANUAL DIFF REQ NO Normal [facility] Comment on above: Performed By: #### C BC #### [facility] [address] [place] [address] Dr. Aga Estrella MCH (RBC) [Entitic mass] 28.8 pg Normal 26.7-34.0 [facility] Comment on above: Performed By: #### C BC #### [facility] [address] [place] [address] Dr. Aga Estrella MCHC (RBC) [Mass/Vol] 31.1 g/dL Normal 29.9-35.2 [facility] Comment on above: Performed By: #### C BC #### [facility] [address] [place] [address] Dr. Aga Estrella MCV (RBC) [Entitic vol] 92.5 fL Normal 81.0-99.0 [facility] Comment on above: Performed By: #### C BC #### [facility] [address] [place] [address] Dr. Aga Estrella MONO # 0.4 103/ul Normal 0.3-0.8 [facility] Comment on above: Performed By: #### C BC #### [facility] [address] [place] [address] Dr. Aga Estrella Monocytes/100 WBC (Bld) 6.4 % Normal 1.7-12.0 [facility] Comment on above: Performed By: #### C BC #### [facility] [address] [place] [address] Dr. Aga Estrella NEUT # 3.5 103/ul Normal 1.4-6.5 [facility] Comment on above: Performed By: #### C BC #### [facility] [address] [place] [address] Dr. Aga Estrella Neutrophils/100 WBC (Bld) 61.8 % Normal 43.0-75.0 [facility] Comment on above: Performed By: #### C BC #### [facility] [address] [place] [address] Dr. Aga Estrella Platelet mean volume (Bld) [Entitic vol] 10.2 fL Normal 9.5-13.5 [facility] Comment on above: Performed By: #### C BC #### [facility] [address] [place] [address] Dr. Aga Estrella PLT 195 103/ul Normal 150-450 [facility] Comment on above: Performed By: #### C BC #### [facility] [address] [place] [address] Dr. Aga Estrella RBC 4.55 106/ul Normal 4.20-5.40 [facility] Comment on above: Performed By: #### C BC #### [facility] [address] [address] [address] Aga Estrella WBC 5.7 103/ul Normal 4.0-11.0 [facility] Comment on above: Performed By: #### C BC #### [facility] [address] [place] [address] Dr. Aga Estrella GLYCOHEMOGLOBIN A1Con 2021 ADA RECOMMENDATION SEE BELOW Normal [facility] Comment on above: Result Comment: ADA RECOMMENDED LIMIT 4.0 - 6.0 ADA THERAPEUTIC TARGET < 7.0 ACTION SUGGESTED > 7.0 Performed By: #### A 1C #### [facility] [address] [place] [address] Dr. Aga Estrella Glucose [Mass/Vol] 192 mg/dL Normal [facility] Comment on above: Performed By: #### A 1C #### [facility] [address] [place] [address] Dr. Aga Estrella HbA1c (Bld) [Mass fraction] 8.3 % Critically high 4.5-6.2 [facility] Comment on above: Performed By: #### A 1C #### [facility] [address] [place] [address] Dr. Aga Estrella LIPID PROFILEon 12-21-2021 CHOL-HDL RATIO NORM SEE BELOW Normal [facility] Comment on above: Result Comment: 3.3 - 4.4 LOW RISK 4.4 - 7.1 AVERAGE RISK 7.1 - 11.0 MODERATE RISK >11.0 HIGH RISK Performed By: #### L IPID, CMP #### [facility] [address] [place] [address] Dr. Aga Estrella Cholesterol [Mass/Vol] 123 mg/dL Normal <=200 [facility] Comment on above: Performed By: #### L IPID, CMP #### [facility] [address] [place] [address] Dr. Aga Estrella Cholesterol in HDL [Mass/Vol] 51 mg/dL Normal 40-60 [facility] Comment on above: Performed By: #### L IPID, CMP #### [facility] [address] [address] [address] Aga Estrella Cholesterol in LDL [Mass/Vol] 45.8 mg/dL Normal [facility] Comment on above: Performed By: #### L IPID, CMP #### [facility] [address] [address] [address] Aga Estrella Cholesterol.total/ Cholesterol in HDL [Mass ratio] 2.4 {ratio} Normal [facility] Comment on above: Performed By: #### L IPID, CMP #### [facility] [address] [address] [address] Aga Estrella HDL NORMAL > or = 60 mg/dl - LO W CARDIOVASCULAR RISK <40 mg/dl - HIGH CARDIOVASCULAR RISK Normal [facility] Comment on above: Performed By: #### L IPID, CMP #### [facility] [address] [place] [address] Dr. Aga Estrella LDL CALC NORMAL SEE BELOW Normal [facility] Comment on above: Result Comment: <100 mg/dl OPTIMAL 100 - 129 mg/dl NEAR OR ABOVE OPTIMAL 130 - 159 mg/dl BORDERLINE HIGH 160 - 189 mg/dl HIGH >190 mg/dl VERY HIGH Performed By: #### L IPID, CMP #### [facility] [address] [place] [address] Dr. Aga Estrella Triglyceride [Mass/Vol] 131 mg/dL Normal <=150 [facility] Comment on above: Performed By: #### L IPID, CMP #### [facility] [address] [address] [address] Aga Estrella VLDL CALC 26.2 mg/dL Normal [facility] Comment on above: Performed By: #### L IPID, CMP #### [facility] [address] [place] [address] Dr. Aga Estrella PROF 14(COMP METB)on 022 Albumin [Mass/Vol] 3.5 g/dL Normal 3.4-5.0 [facility] Comment on above: Performed By: #### L IPID, CMP #### [facility] [address] [address] [address] Aga Estrella Albumin/Globulin [Mass ratio] 1.0 {ratio} Normal [facility] Comment on above: Performed By: #### L IPID, CMP #### [facility] [address] [address] [address] Aga Estrella ALP [Catalytic activity/Vol] 147 U/L Critically high 46-116 [facility] Comment on above: Performed By: #### L IPID, CMP #### [facility] [address] [address] [address] Aga Estrella ALT [Catalytic activity/Vol] 42 U/L Normal 14-59 [facility] Comment on above: Performed By: #### L IPID, CMP #### [facility] [address] [place] [address] Dr. Aga Estrella Anion gap [Moles/Vol] 12.2 mmol/L Normal [facility] Comment on above: Performed By: #### L IPID, CMP #### [facility] [address] [place] [address] Dr. Aga Estrella AST [Catalytic activity/Vol] 32 U/L Normal 15-37 [facility] Comment on above: Performed By: #### L IPID, CMP #### [facility] [address] [place] [address] Dr. Aga Estrella Bilirubin [Mass/Vol] 0.3 mg/dL Normal 0.2-1.0 [facility] Comment on above: Performed By: #### L IPID, CMP #### [facility] [address] [place] [address] Dr. Aga Estrella Calcium [Mass/Vol] 9.1 mg/dL Normal 8.5-10.1 [facility] Comment on above: Performed By: #### L IPID, CMP #### [facility] [address] [place] [address] Dr. Aga Estrella Chloride [Moles/Vol] 103 mmol/L Normal 98-107 [facility] Comment on above: Performed By: #### L IPID, CMP #### [facility] [address] [address] [address] Aga Estrella CO2 [Moles/Vol] 29.9 mmol/L Normal 21.0-32.0 [facility] Comment on above: Performed By: #### L IPID, CMP #### [facility] [address] [address] [address] Aga Estrella Creatinine [Mass/Vol] 0.65 mg/dL Normal 0.55-1.02 [facility] Comment on above: Performed By: #### L IPID, CMP #### [facility] [address] [address] [address] Aga Estrella EGFR-AF ETHIOPIAN >60 Normal >=60 [facility] Comment on above: Performed By: #### L IPID, CMP #### [facility] [address] [address] [address] Aga Estrella EGFR-NON AF ETHIOPIAN >60 Normal >=60 [facility] Comment on above: Performed By: #### L IPID, CMP #### [facility] [address] [address] [address] Aga Etsrella Globulin (S) [Mass/Vol] 3.6 g/dL Normal [facility] Comment on above: Performed By: #### L IPID, CMP #### [facility] [address] [address] [address] Aga Estrella Glucose [Mass/Vol] 156 mg/dL Critically high 74-106 [facility] Comment on above: Performed By: #### L IPID, CMP #### [facility] [address] [address] [address] Aga Estrella Potassium [Moles/Vol] 4.1 mmol/L Normal 3.5-5.1 [facility] Comment on above: Performed By: #### L IPID, CMP #### [facility] [address] [address] [address] Aga Estrella Protein [Mass/Vol] 7.1 g/dL Normal 6.4-8.2 [facility] Comment on above: Performed By: #### L IPID, CMP #### [facility] [address] [address] [address] Aga Estrella Sodium [Moles/Vol] 141 mmol/L Normal 136-145 [facility] Comment on above: Performed By: #### L IPID, CMP #### [facility] [address] [address] [address] Aga Estrella Urea nitrogen [Mass/Vol] 13.0 mg/dL Normal 7.0-18.0 [facility] Comment on above: Performed By: #### L IPID, CMP #### [facility] [address] [address] [address] Aga Estrella Urea nitrogen/Creatinin e [Mass ratio] 20.0 mg/mg Normal [facility] Comment on above: Performed By: #### L IPID, CMP #### [facility] [address] [address] [address] Aga Estrella UA RANDOM W/MICROSCOPICon BACTERIA NONE SEEN Normal NONE SEEN [facility] Comment on above: Performed By: #### U AMIC ####[facility] [address] [address]DrMavis Estrella Bilirubin Ql (U) Negative Normal NEGATIVE [facility] Comment on above: Performed By: #### U AMIC ####[facility] [address] [address]DrMavis Estrella CAST NONE SEEN Normal NONE SEEN [facility] Comment on above: Performed By: #### U AMIC ####[facility] [address] [address]DrMavis Estrella Clarity (U) CLEAR Normal CLEAR [facility] Comment on above: Performed By: #### U AMIC ####[facility] [address] [address]DrMavis Estrella Color (U) LT. YELLOW Normal YELLOW [facility] Comment on above: Performed By: #### U AMIC ####[facility] [address] [address]DrMavis Estrella Crystals LM Nom (Urine sed) NONE SEEN Normal NONE SEEN [facility] Comment on above: Performed By: #### U AMIC ####[facility] [address] [address]Dr. Aga Estrella Epithelial cells LM Ql (Urine sed) RARE Normal NONE SEEN /RARE [facility] Comment on above: Performed By: #### U AMIC ####[facility] [address] [address]Dr. Aga Estrella Glucose Ql (U) Negative Normal NEGATIVE [facility] Comment on above: Performed By: #### U AMIC ####[facility] [address] [address]Dr. Aga Estrella Hemoglobin Ql (U) Negative Normal NEGATIVE [facility] Comment on above: Performed By: #### U AMIC ####[facility] [address] [place], [place] [address]Dr. Aga Estrella Ketones Ql (U) Negative Normal NEGATIVE [facility] Comment on above: Performed By: #### U AMIC ####[facility] [address] [place], [place] [address]Dr. Yilan Estrella LEUKOCYTES Negative Normal NEGATIVE [facility] Comment on above: Performed By: #### U AMIC ####[facility] [address] [place], [place] [address]Dr. Yilan Estrella MUCOUS NONE SEEN Normal NONE SEEN [facility] Comment on above: Performed By: #### U AMIC ####[facility] [address] [place], [place] [address]Dr. Juhilan Estrella Nitrite Ql (U) Negative Normal NEGATIVE [facility] Comment on above: Performed By: #### U AMIC ####[facility] [address] [place], [place] [address]Dr. Aga Estrella pH (U) 6.0 [pH] Normal 5-9 [facility] Comment on above: Performed By: #### U AMIC ####[facility] [address] [place], [place] [address]Dr. Juhilan Estrella RBC NONE SEEN Abnormal 0-2 [facility] Comment on above: Performed By: #### U AMIC ####[facility] [address] [place], [place] [address]Of. Aga Estrella SPEC GRAVITY 1.015 Normal 1.005-<=1.0 25 [facility] Comment on above: Performed By: #### U AMIC ####[facility] [address] [place], [place] [address]Jv. Aga Estrella UA PROTEIN Negative Normal NEGATIVE/ TRACE [facility] Comment on above: Performed By: #### U AMIC ####[facility] [address] [place], [place] [address]Ds. Aga Estrella Urobilinogen Qn (U) 0.2 {Kiya'U}/dL Normal 0.2 - 1.0 [facility] Comment on above: Performed By: #### U AMIC ####[facility] [address] [place], [place] [address]Pd. Aga Estrella WBC 0-2 Abnormal NONE SEEN [facility] Comment on above: Performed By: #### U AMIC ####[facility] [address] [place], [place] [address]Sx. Aga Estrella Covid-19 PCR ([facility]on SARS-CoV-2 (COVID-19) RNA JOSE+probe Ql (Unsp spec) Not detected Normal NOT DETECTED [facility] Comment on above: Result Comment: This test is not yet approved or cleared by the [place] FDA. When there are no FDA-approved or cleared tests available, and other criteria are met, FDA can make tests available under an emergency access mechanism called an Emergency Use Authorization (EUA). The EUA for this test is supported by the [place] [employer] of Health and Human Service's (HHS's) declaration [...] SARS-CoV-2. Performed By: #### C VDTB #### [facility] [address] [place] [address] Dr. Aga Estrella GLYCOHEMOGLOBIN A1Con 2021 ADA RECOMMENDATION ADA THERAPEUTIC TARG ET 6.0 - 7.0 ACTION SUGGESTED > 7.0 Normal [facility] Comment on above: Performed By: #### A 1C #### [facility] [address] [place] [address] Dr. Aga Estrella Glucose [Mass/Vol] 183 mg/dL Normal [facility] Comment on above: Performed By: #### A 1C #### [facility] [address] [place] [address] Dr. Aga Estrella HbA1c (Bld) [Mass fraction] 8.0 % Critically high <=6.0 [facility] Comment on above: Performed By: #### A 1C #### [facility] [address] [place] [address] Dr. Aga Estrella PROF CHEM 8 (BAS METB)on Anion gap [Moles/Vol] 9.0 mmol/L Normal [facility] Comment on above: Performed By: #### B MP #### [facility] [address] [place] [address] Dr. Aga Estrella Calcium [Mass/Vol] 8.6 mg/dL Normal 8.5-10.1 [facility] Comment on above: Performed By: #### B MP #### [facility] [address] [place] [address] Dr. Aga Estrella Chloride [Moles/Vol] 102 mmol/L Normal 98-107 [facility] Comment on above: Performed By: #### B MP #### [facility] [address] [place] [address] Dr. Aga Estrella CO2 [Moles/Vol] 32.7 mmol/L Critically high 22.0-30.0 [facility] Comment on above: Performed By: #### B MP #### [facility] [address] [place], [place] [id number] Dr. Aga Estrella Creatinine [Mass/Vol] 0.61 mg/dL Normal 0.52-1.04 [facility] Comment on above: Performed By: #### B MP #### [facility] [address] [place] [address] Dr. Aga Estrella EGFR-AF ETHIOPIAN >60 Normal >=60 [facility] Comment on above: Performed By: #### B MP #### [facility] [address] [address] [address] Aga Estrella EGFR-NON AF ETHIOPIAN >60 Normal >=60 [facility] Comment on above: Performed By: #### B MP #### [facility] [address] [place] [address] Dr. Aga Estrella Glucose [Mass/Vol] 187 mg/dL Critically high 74-106 [facility] Comment on above: Performed By: #### B MP #### [facility] [address] [place] [address] Dr. Aga Estrella Potassium [Moles/Vol] 3.7 mmol/L Normal 3.4-5.0 [facility] Comment on above: Performed By: #### B MP #### [facility] [address] [place] [address] Dr. Aga Estrella Sodium [Moles/Vol] 140 mmol/L Normal 137-145 [facility] Comment on above: Performed By: #### B MP #### [facility] [address] [place] [address] Dr. Aga Estrella Urea nitrogen [Mass/Vol] 13.0 mg/dL Normal 7.0-18.0 [facility] Comment on above: Performed By: #### B MP #### [facility] [address] [place] [address] Dr. Aga Estrella Urea nitrogen/Creatinin e [Mass ratio] 21.3 mg/mg Normal [facility] Comment on above: Performed By: #### B MP #### [facility] [address] [place], [place] [id number] Dr. Aga Estrella Vital Signs Date Time Vital Sign Value Performing Clinician Facility 06-12-2024 09:47-0400 Body height 157.5 cm Rossana Alicia SEISMIC ENGINEER Work Phone: [facility] 06-12-2024 09:47-0400 Body mass index (BMI) [Ratio] 37.2 kg/m2 Rossana Taylorz SEISMIC ENGINEER Work Phone: [facility] 06-12-2024 09:47-0400 Body temperature 98.4 [degF] Rossana Alicia SEISMIC ENGINEER Work Phone: [facility] 06-12-2024 09:47-0400 Body weight 92.26 kg Rossana Taylorz SEISMIC ENGINEER Work Phone: [facility] 06-12-2024 09:47-0400 Diastolic blood pressure 82 mm[Hg] Rossana Taylorz SEISMIC ENGINEER Work Phone: [facility] 06-12-2024 09:47-0400 Heart rate 74 /min Rossana Taylorz SEISMIC ENGINEER Work Phone: [facility] 06-12-2024 09:47-0400 Respiratory rate 18 /min Rossanatal Macarioholz SEISMIC ENGINEER Work Phone: [facility] 06-12-2024 09:47-0400 SaO2% (BldA) [Mass fraction] 95 % Rossana Taylorz SEISMIC ENGINEER Work Phone: [facility] 06-12-2024 09:47-0400 Systolic blood pressure 122 mm[Hg] Rossana Macariorodgerleonides SEISMIC ENGINEER Work Phone: [facility] 04-03-2024 14:56-0500 Body height 157.5 cm Cierra Drummond DPM Work Phone: [facility] 04-03-2024 14:56-0500 Body mass index (BMI) [Ratio] 36.4 kg/m2 Cierra Drummond DPM Work Phone: [facility] 04-03-2024 14:56-0500 Body weight 90.27 kg Cierra Drummond DPM Work Phone: [facility] 03-06-2024 09:50-0500 Body height 157.5 cm Rossana Aichholz SEISMIC ENGINEER Work Phone: [facility] 03-06-2024 09:50-0500 Body mass index (BMI) [Ratio] 38.56 kg/m2 Rossana Aichholz SEISMIC ENGINEER Work Phone: [facility] 03-06-2024 09:50-0500 Body temperature 98.1 [degF] Rossana Aichholz SEISMIC ENGINEER Work Phone: [facility] 03-06-2024 09:50-0500 Body weight 95.62 kg Rossana Aichholz SEISMIC ENGINEER Work Phone: [facility] 03-06-2024 09:50-0500 Diastolic blood pressure 82 mm[Hg] Rossana Aichholz SEISMIC ENGINEER Work Phone: [facility] 03-06-2024 09:50-0500 Heart rate 78 /min Rossana Aichholz SEISMIC ENGINEER Work Phone: [facility] 03-06-2024 09:50-0500 Respiratory rate 18 /min Rossana Aichholz SEISMIC ENGINEER Work Phone: [facility] 03-06-2024 09:50-0500 SaO2% (BldA) [Mass fraction] 94 % Rossana Aichholz SEISMIC ENGINEER Work Phone: [facility] 03-06-2024 09:50-0500 Systolic blood pressure 122 mm[Hg] Rossana Aichholz SEISMIC ENGINEER Work Phone: [facility] 12-05-2023 14:07-0400 Body mass index (BMI) [Ratio] 38.74 kg/m2 Rossana Aichholz SEISMIC ENGINEER Work Phone: [facility] 12-05-2023 14:07-0400 Body temperature 97.5 [degF] Rossana Aichholz SEISMIC ENGINEER Work Phone: [facility] 12-05-2023 14:07-0400 Body weight 96.07 kg Rossana Aichholz SEISMIC ENGINEER Work Phone: [facility] 12-05-2023 14:07-0400 Diastolic blood pressure 86 mm[Hg] Rossana Maral SEISMIC ENGINEER Work Phone: [facility] 12-05-2023 14:07-0400 Heart rate 70 /min Rossana Maral SEISMIC ENGINEER Work Phone: [facility] 12-05-2023 14:07-0400 Respiratory rate 20 /min Rossana Maral SEISMIC ENGINEER Work Phone: [facility] 12-05-2023 14:07-0400 SaO2% (BldA) [Mass fraction] 94 % Rossana Maral SEISMIC ENGINEER Work Phone: [facility] 12-05-2023 14:07-0400 Systolic blood pressure 120 mm[Hg] Rossana Maral SEISMIC ENGINEER Work Phone: [facility] 04-18-2022 14:43-0500 Blood Pressure Location [facility] 04-18-2022 14:43-0500 Diastolic blood pressure 88 mm[Hg] [facility] 04-18-2022 14:43-0500 Heart rate 80 /min [facility] [place] 04-18-2022 14:43-0500 Respiratory rate 16 /min [facility] [place] 04-18-2022 14:43-0500 Systolic blood pressure 130 mm[Hg] [facility] [place] Encounters Encounter Date Encounter Type Care Provider Facility Start: 06-12-2024 End: 06-12-2024 Bamboo flowsheet Rossana Alicia SEISMIC ENGINEER Work Phone: [facility] Start: 06-12-2024 End: 06-12-2024 Bamboo flowsheet Rossana Alicia SEISMIC ENGINEER Work Phone: [facility] Start: 06-12-2024 End: 06-12-2024 Patient encounter procedure Rossana Alicia NP Work Phone: [facility] Comment on above: Encounter for annual wellness visit (AWV) in Medicare patient (Primary Dx); Type 2 diabetes mellitus with diabetic peripheral angiopathy without gangrene ([facility]/HCC); Morbid (severe) obesity due to excess calories ([facility]/HCC); Essential (primary) hypertension ([facility]); Body mass index (BMI) 36.0-36.9, adult; Obstructive sleep apnea syndrome; Pulmonary emphysema, unspecified emphysema type ([facility]/HCC); Other emphysema ([facility]); Type 2 diabetes mellitus without complication, without long-term current use of insulin ([facility]); Current mild episode of major depressive disorder without prior episode ([facility]) ([facility]); Encounter for screening mammogram for malignant neoplasm of breast; Primary hypertension ([facility]); Mixed hyperlipidemia ([facility]); Environmental and seasonal allergies; Moderate persistent asthma without complication ([facility]); Gastroesophageal reflux disease, unspecified whether esophagitis present Start: 06-12-2024 End: 06-12-2024 ambulatory ROSSANA MARAL Not Available Start: 2024 End: 2024 Refill Rossana Alicia SEISMIC ENGINEER Work Phone: [facility] Comment on above: Type 2 diabetes myke itus without complication, without long- term current use of insulin ([facility]) (Primary Dx) Start: 04-03-2024 End: 04-03-2024 ambulatory CIERRA DRUMMOND Not Available Start: 04-03-2024 End: 04-03-2024 Office outpatient visit 25 minutes Cierra Drummond DPM Work Phone: [facility] Comment on above: Pain of toe of left foot (Primary Dx); Nail dystrophy; Capsulitis of toe, left; Swelling of toe of left foot Start: 04-03-2024 End: 04-03-2024 ambulatory CIERRA DRUMMOND Not Available Start: 04-03-2024 End: 04-03-2024 Bamboo flowsheet Cierra FARIAM Work Phone: [facility] Start: 04-03-2024 End: 04-03-2024 Bamboo flowsheet Cierra Drummond DPM Work Phone: [facility] Start: 03-18-2024 End: 03-18-2024 Clinisync Result Encounter Rossana Aichholz SEISMIC ENGINEER Work Phone: [facility] External Department Unsolicited Start: 03-18-2024 End: 03-18-2024 Clinisync Result Encounter Rossana Aichholz SEISMIC ENGINEER Work Phone: [facility] External Department Unsolicited Start: 03-06-2024 End: 03-06-2024 Bamboo flowsheet Rossana Aichholz SEISMIC ENGINEER Work Phone: [facility] Start: 03-06-2024 End: 03-06-2024 Bamboo flowsheet Rossana Aichholz SEISMIC ENGINEER Work Phone: [facility] Start: 03-06-2024 End: 03-06-2024 Office outpatient visit 25 minutes Rossana Aichholz SEISMIC ENGINEER Work Phone: [facility] Comment on above: Type 2 diabetes myke itus without complication, without long- term current use of insulin ([facility]) (Primary Dx); Obstructive sleep apnea syndrome; Pulmonary emphysema, unspecified emphysema type ([facility]); Moderate persistent asthma without complication ([facility]); Essential hypertension; Obesity (BMI 30-39.9); Current mild episode of major depressive disorder without prior episode (HCC) (CMS/[facility]); Mixed hyperlipidemia (CMS/[facility]); Primary hypertension ([facility]); Environmental and seasonal allergies; Gastroesophageal reflux disease, unspecified whether esophagitis present; Hypoglycemia; Needs flu shot Start: 03-06-2024 End: 03-06-2024 ambulatory ROSSANA AICHHOLZ Not Available Start: 02-26-2024 End: 02-26-2024 Refill Rossana Aichholz SEISMIC ENGINEER Work Phone: [facility] Comment on above: Moderate persistent asthma without complication (CMS/[facility]); Type 2 diabetes mellitus without complication, without long-term current use of insulin ([facility]) Start: 01-17-2024 End: 01-17-2024 Refill Rossana Aichholz SEISMIC ENGINEER Work Phone: [facility] Comment on above: Primary hypertension ([facility]) Start: 12-25-2023 End: 12-25-2023 Refill Rossana Aichholz SEISMIC ENGINEER Work Phone: [facility] Comment on above: Moderate persistent asthma without complication ([facility]) Start: 12-18-2023 End: 12-18-2023 Refill Rossana Aichholz SEISMIC ENGINEER Work Phone: [facility] Comment on above: Type 2 diabetes myke itus without complication, without long- term current use of insulin ([facility]) (Primary Dx) Start: 12-14-2023 End: 12-14-2023 Clinisync Result Encounter Rossana Aichholz SEISMIC ENGINEER Work Phone: [facility] External Department Unsolicited Start: 12-14-2023 End: 12-14-2023 Clinisync Result Encounter Rossana Aichholz SEISMIC ENGINEER Work Phone: [facility] External Department Unsolicited Start: 12-05-2023 End: 12-05-2023 Bamboo flowsheet Rossana Aichholz SEISMIC ENGINEER Work Phone: [facility] Start: 12-05-2023 End: 12-05-2023 Bamboo flowsheet Rossana Aichholz SEISMIC ENGINEER Work Phone: [facility] Start: 12-05-2023 End: 12-05-2023 Office outpatient visit 25 minutes Rossana Aichholz SEISMIC ENGINEER Work Phone: [facility] Comment on above: Type 2 diabetes myke itus without complication, without long- term current use of insulin ([facility]) (Primary Dx); Type 2 diabetes mellitus with diabetic peripheral angiopathy without gangrene ([facility]); Essential hypertension; Mixed hyperlipidemia ([facility]); Primary hypertension ([facility]); Environmental and seasonal allergies; Chronic sinusitis of both maxillary sinuses; Moderate persistent asthma without complication ([facility]); Gastroesophageal reflux disease, unspecified whether esophagitis present Start: 12-05-2023 End: 12-05-2023 ambulatory ROSSANA AICHHOLZ Not Available Start: 10-01-2023 End: 10-01-2023 ambulatory ROSSANA AICHHOLZ Not Available Start: 09-12-2023 End: 09-12-2023 ambulatory ROSSANA AICHHOLZ Not Available Start: 08-16-2023 End: 08-16-2023 ambulatory ROSSANA AICHHOLZ Not Available Start: 07-05-2023 End: 07-05-2023 ambulatory ROSSANA AICHHOLZ Not Available Start: 05-08-2023 Clinisync Result Encounter Lis a Renaldoholz SEISMIC ENGINEER Work Phone: [facility] External Department Unsolicited Start: 05-08-2023 Clinisync Result Encounter Lis a Renaldoholz SEISMIC ENGINEER Work Phone: [facility] External Department Unsolicited Start: 04-10-2023 Patient encounter procedure Rossana Aichholz SEISMIC ENGINEER Work Phone: [facility] Start: 06-07-2022 End: 06-08-2022 ambulatory ROOFER ASSISTANT ROSSANA AICHHOLZ Facility:[facility] Start: 05-31-2022 End: 06-01-2022 ambulatory Julian R NILL Facility:[facility] Start: 05-31-2022 End: 05-31-2022 Patient encounter procedure Julian R NILL General Surgery [facility] Start: 05-24-2022 ambulatory Julian NILL Facility:[facility] Start: 05-17-2022 End: 05-18-2022 ambulatory Julian R NILL Facility:[id number] Start: 04-18-2022 End: 04-19-2022 ambulatory Julian R NILL Facility:[facility] Start: 04-18-2022 End: 04-18-2022 Patient encounter procedure Julian R NILL General Surgery [facility] [place] Start: 03-28-2022 ambulatory Julian Carrera NILL Facility : [facility] Start: 12-21-2021 End: 12-22-2021 ambulatory RON ALICIA Facility: Start: 09-01-2021 End: 09-01-2021 ambulatory ROOFER ASSISTANT ROSSANA ALICIA Facility:[facility] Start: 07-14-2021 End: 07-15-2021 ambulatory ROOFER ASSISTANT ROSSANA ALICIA Facility: Procedures Date Procedure Procedure Detail Performing Clinician Start: 04-03-2024 Radex foot complete minimum 3 views Caridad Drummond DPM Work Phone: Start: 03-18-2024 MLR HEMOGLOBIN A1C Rossana Aichholz SEISMIC ENGINEER Work Phone: Start: 12-14-2023 ALL CBC WITH AUTO DIFF Rossana Aichholz SEISMIC ENGINEER Work Phone: Start: 06-29-2023 Mammography Rossana Aichholz SEISMIC ENGINEER Work Phone: Start: 05-08-2023 MLR HEMOGLOBIN A1C Rossana Aichholz SEISMIC ENGINEER Work Phone: Start: 06-07-2022 Mammography Rossana Aichholz SEISMIC ENGINEER Work Phone: Start: 05-17-2022 Colonoscopy Rossana Aichholz SEISMIC ENGINEER Work Phone: Start: 05-17-2022 Colonoscopy Julian NILL Start: 05-17-2022 Esophagogastroduodenoscopy Julian NILL Start: 03-26-2013 Cholecystectomy Julian NILL Start: 02-22-2011 Colonoscopy Julian NILL Start: 03-26-1969 Tonsil and adenoid structure (body structure) Julian NILL Dilation and curettage Mark GARYL Esophagogastroduodenoscopy Julia GARYL Excision of lipoma Julian BENSON Oophorectomy Julian GARYL Plan of Treatment Date Care Activity Detail Author Start: 05-17-2027 Screening for malign ant neoplasm of colon [facility] Start: 03-06-2026 Glaucoma screening Diabetes: R etinopathy Screening [facility] Start: 12-11-2025 Glaucoma screening Diabetes: R etinopathy Screening [facility] Start: 06-12-2025 Medicare Annual Well ness (AWV) Medicare Annual Wellness (AWV) [facility] Start: 12-13-2024 Urine screening for protein Diabetes: Urine Protein Screening [facility] Start: 06-28-2024 Screening for malign ant neoplasm of breast Mammogram [facility] Start: 06-16-2024 Hemoglobin A1c measurement Diabetes: Hemoglobin A1C [facility] Start: 06-12-2024 End: 06-12-2025 Hemoglobin A1c/Hemoglobin.total in Blood Hemoglobin A1c Lab Routine Type 2 diabetes mellitus without complication, without long-term current use of insulin (CMS/HCC) Expected: 06/12/2024 (Approximate), Expires: 06/12/2025 [facility] Comment on above: Expected: 06/12/2024 (Approximate), Expires: 06/12/2025 Start: 06-12-2024 End: 08-12-2025 MG Breast - bilateral Screening Bilateral screening mammogram Imaging Routine Encounter for screening mammogram for malignant neoplasm of breast Expected: 06/12/2024 (Approximate), Expires: 08/12/2025 [facility] Work Phone: Comment on above: Expected: 06/12/2024 (Approximate), Expires: 08/12/2025 Start: 06-12-2024 End: 06-12-2024 Patient encounter procedure [facility] Comment on above: Obstructive sleep ap blanquita syndrome (Primary Dx); Type 2 diabetes mellitus with diabetic peripheral angiopathy without gangrene (CMS/HCC); Morbid (severe) obesity due to excess calories (CMS/HCC); Essential (primary) hypertension (CMS/HCC); Body mass index (BMI) 36.0-36.9, adult; Pulmonary emphysema, unspecified emphysema type (CMS/HCC); Other emphysema ([facility]CC); Type 2 diabetes mellitus without complication, without long-term current use of insulin ([facility]/HCC); Current mild episode of major depressive disorder without prior episode (HCC) ([facility]); Encounter for annual wellness visit (AWV) in Medicare patient; Encounter for screening mammogram for malignant neoplasm of breast Start: 04-29-2024 End: 04-29-2024 Patient encounter procedure 04/29/2024 2:15 PM EST Office Visit [facility] [address] [place] [address] Cierra Drummond, WINTER [address] [facility] [place] [address] [facility] Start: 04-10-2024 Medicare Annual Well ness (AWV) Medicare Annual Wellness (AWV) [facility] Start: 04-03-2024 End: 04-03-2024 Patient encounter procedure 04/03/2024 3:00 PM EST Office Visit [facility] [address] [place] [phone] Cierra Drummond, [place] [address] [facility] [place] [address] Arrived [facility] Comment on above: Arrived Start: 03-06-2024 End: 03-06-2025 Hemoglobin A1c/Hemoglobin.total in Blood Hemoglobin A1c Lab Routine Type 2 diabetes mellitus without complication, without long-term current use of insulin ([facility]) Expected: 03/06/2024 (Approximate), Expires: 03/06/2025 [facility] Work Phone: Comment on above: Expected: 03/06/2024 (Approximate), Expires: 03/06/2025 Start: 03-06-2024 End: 03-06-2024 Patient encounter procedure [facility] Comment on above: Obstructive sleep ap blanquita syndrome (Primary Dx); Pulmonary emphysema, unspecified emphysema type ([facility]/HCC); Moderate persistent asthma without complication ([facility]); Essential hypertension; Obesity (BMI 30-39.9); Type 2 diabetes mellitus without complication, without long-term current use of insulin ([facility]); Current mild episode of major depressive disorder without prior episode (HCC) ([facility]); Mixed hyperlipidemia ([facility]/HCC); Primary hypertension ([facility]/HCC); Environmental and seasonal allergies; Gastroesophageal reflux disease, unspecified whether esophagitis present Start: 01-27-2024 Urine screening for protein Diabetes: Urine Protein Screening [facility] Start: 01-24-2024 Influenza vaccination Influenza Vacc ine (#1) [facility] Comment on above: Postponed from 11/24 (Patient Does Not Have Time) Start: 01-21-2024 Glaucoma screening Diabetes: R etinopathy Screening [facility] Start: 12-05-2023 End: 12-04-2024 CBC W Auto Differential panel - Blood CBC and differential Lab Routine Type 2 diabetes mellitus without complication, without long-term current use of insulin ([facility]) Expected: 12/05/2023 (Approximate), Expires: 12/04/2024 [facility] Work Phone: Comment on above: Expected: 12/05/2023 (Approximate), Expires: 12/04/2024 Start: 12-05-2023 End: 12-04-2024 Comprehensive metabolic 2000 panel - Serum or Plasma Comprehensive metabolic panel Lab Routine Essential hypertension Type 2 diabetes mellitus without complication, without long-term current use of insulin ([facility]) Mixed hyperlipidemia ([facility]) Expected: 12/05/2023 (Approximate), Expires: 12/04/2024 [facility] Comment on above: Expected: 12/05/2023 (Approximate), Expires: 12/04/2024 Start: 12-05-2023 End: 12-04-2024 Hemoglobin A1c/Hemoglobin.total in Blood Hemoglobin A1c Lab Routine Type 2 diabetes mellitus without complication, without long-term current use of insulin ([facility]) Expected: 12/05/2023 (Approximate), Expires: 12/04/2024 [facility] Comment on above: Expected: 12/05/2023 (Approximate), Expires: 12/04/2024 Start: 12-05-2023 End: 12-04-2024 Lipid 1996 panel - Serum or Plasma Lipid panel Lab Routine Type 2 diabetes mellitus without complication, without long-term current use of insulin (CMS/HCC) Mixed hyperlipidemia (CMS/HCC) Expected: 12/05/2023 (Approximate), Expires: 12/04/2024 [facility] Comment on above: Expected: 12/05/2023 (Approximate), Expires: 12/04/2024 Start: 12-05-2023 End: 12-04-2024 Microalbumin/Creatinine panel in random Urine Microalbumin / creatinine, urine ratio Lab Routine Essential hypertension Type 2 diabetes mellitus without complication, without long-term current use of insulin (CMS/HCC) Expected: 12/05/2023 (Approximate), Expires: 12/04/2024 [facility] Comment on above: Expected: 12/05/2023 (Approximate), Expires: 12/04/2024 Start: 12-05-2023 End: 12-05-2023 Patient encounter procedure 12/05/2023 2:00 PM EDT Office Visit [facility] [address] [place] [phone] Rossana Alicia, AYDEE [address] [place] [address] Essential hypertension (Primary Dx); Type 2 diabetes mellitus with diabetic peripheral angiopathy without gangrene (CMS/HCC); Type 2 diabetes mellitus without complication, without long-term current use of insulin (CMS/HCC); Mixed hyperlipidemia (CMS/HCC) [facility] Comment on above: Essential hypertensi on [...] insulin (CMS/HCC) Expected: 12/05/2023 (Approximate), Expires: 12/04/2024 [facility] Comment on above: Expected: 12/05/2023 (Approximate), Expires: 12/04/2024 Start: 11-25-2023 Influenza vaccination Influenza Vacc ine (#1) [facility] Start: 08-06-2023 Hemoglobin A1c measurement Diabetes: Hemoglobin A1C [facility] Start: 06-08-2023 Screening for malign ant neoplasm of breast Mammogram [facility] Start: 05-14-2023 End: 05-14-2023 Patient encounter procedure 05/14/2023 9:40 AM EST Office Visit [facility] [address] [place] [phone] Rossana Alicia, SEISMIC ENGINEER [address] [place] [phone] [facility] Start: 04-28-2023 Hemoglobin A1c measurement Diabetes: Hemoglobin A1C [facility] Start: 11-24-2022 Influenza vaccination Influenza Vacc ine (#1) [facility] Start: 1955 Screening for malign ant neoplasm of colon [facility] Immunizations Immunization Date Immunization Notes Care Provider Fa cili 03-06-2024 Seasonal trivalent influenza vaccine, adjuvanted, preservative free Rossana Alicia SEISMIC ENGINEER Work Phone: [facility] 08-18-2021 Pfizer Quinonez Cap SARS-CoV-2 Vaccination Rossana Alicia SEISMIC ENGINEER Work Phone: [facility] 08-18-2021 SARS-CoV-2 mRNA (ktsllekmcvg-yjkx-hvwze se) vaccine Julian BONILLA [facility] 01-10-2021 SARS-CoV-2 (COVID-19 ) mRNA BNT-162b2 vax Julian BONILLA [facility] 12-14-2020 influenza virus vaccine, unspecified formulation Julian BONILLA [facility] 12-14-2020 Influenza, Seasonal, Quadrivalent, Adjuvanted Rossana Alicia SEISMIC ENGINEER Work Phone: [facility] 03-26-2021 SARS-CoV-2 (COVID-19 ) mRNA BNT-162b2 vax Julian GARYL [facility] 05-29-2020 SARS-CoV-2 (COVID-19 ) mRNA BNT-162b2 vax Julian GARYL [facility] Comment on above: Result Comment: 2022: [id number] 12-30-2018 influenza virus vaccine, live, attenuated, for intranasal use Julian BONILLA [facility] Payers Date Payer Category Payer Medicaid [employer] A [employer] [id number] 2021 Private Health Insurance [employer] [facility] [id number] 2021-Present [address] [address] [place] [address] [id number] 2020 Medicare [id number] 1959 Private Health Insurance [id number] 1955 Unknown [id number] [id number]. 727 1955 Unknown [id number] 2.16.840.1.933515.3.579.2. 727 1955 Unknown [id number] 2.16.840.1.401548.3.579.2. 727 1955 Unknown [id number] 2.16.840.1.548146.3.579.2. 727 1955 Unknown [id number] 2.16.840.1.225567.3.579.2. 593 1955 Unknown [id number] 2.16.840.1.152995.3.579.2. 593 1955 Unknown [id number] 2.16.840.1.352524.3.579.2. 593 1955 Unknown [id number] 2.16.840.1.229000.3.579.2. 593 1955 Unknown [id number] 2.16.840.1.858604.3.579.2. 593 1955 Unknown [id number] 2.16840.1.337817.3.579.2. 1259 1955 Unknown [id number] 2.16.840.1.970077.3.579.2. 1259 1955 Unknown [id number] 2.16.840.1.749653.3.579.2. 1259 1955 Unknown [id number] 2.16.840.1.635544.3.579.2. 1259 1955 Unknown [id number] 2.16840.1.029042.3.579.2. 1259 1955 Unknown [id number] 2.16.840.1.250890.3.579.2. 1259 1955 Unknown [id number] 2.16.840.1.707074.3.579.2. 1259 1955 Unknown [id number] 2.16.840.1.646825.3.579.2. 1259 1955 Unknown [id number] 2.16.840.1.781011.3.579.2. 1259 Social History Date Type Detail Facility Start: 04-18-2022 End: 09-12-2023 Tobacco smoking status Ex-smoker (finding) [facility] Tobacco smoking status Never [facility] Start: 04-09-2023 End: 06-12-2024 Sex Assigned At [facility] End: 03-26-1994 History of tobacco use Current smoker [facility] End: 03-26-1994 History of tobacco use Cigarette Smoker [facility] Start: 02-22-2023 End: 09-12-2023 Tobacco use and exposure Smokeless tobacco non-user [facility] Start: 04-10-2023 End: 06-12-2024 Alcohol intake Ex-drinker (finding) [facility] Start: 04-09-2023 End: 06-12-2024 History of Social function [facility] Within the last year , have you been afraid of your partner or ex-partner? No [facility] Do you belong to any clubs or organizations such as adventism groups, [employer], Multiply or athletic groups, or school groups? Yes [...] To some extent [facility] (I/We) worried [place] (my/our) food would run out before (I/we) got money to buy more. Never true [facility] Start: 1955 Sex Assigned At Not on file [facility] History of tobacco use Passive smoker [facility] Medical Equipment Procedure Code Equipment Code Equipment Origin al Text Equipment Identifier Dates Daily 1 each by In Vitro route Daily [id number] Start: 2024 Functional Status Date Assessment Result Facility 04-18-2022 Functional Status N/A [facility] [place] Clinical Notes 04-18-2022 to 06-12-2024 VARSHA GALLEGO - 06/12/2024 9:40 AM Mathew Alicia, AYDEE - 06/12/2024 9:40 AM Mathew Alicia, AYDEE - 06/12/2024 6:25 AM Mathew Alicia, AYDEE - 06/12/2024 6:25 AM EDTPatient Instructions Note Date & Type Note Facility 06-12-2024 History of Present illness Narrative Left leg sciatica- pt did go to chiropractor on Sunday does feel better Eye appt on Sunday (martín) Images from the original note were not included. Jaye Beavers is a 69 y.o. female presents with chief complaint of Medicare Annual Wellness Visit Initial HPI: Diet:variety Activity:none Mental Health Concerns: none Falls in the last year: none Still driving: yes Do you pay your bills: yes Any hearing problems:left ear decreased hearing, uses hearing aid Any Vision problems: glasses, has eye appt 06/16/24 Any Hospitalizations in the last year:none Specialist: eye doctor HCPOA/Living Will: yes, her HCPOA is Concerns: none Hypertension This is a chronic problem. The current episode started more than 1 year ago. The problem is unchanged. The problem is controlled. Associated symptoms include peripheral edema and shortness of breath. Pertinent negatives include no chest pain, headaches, malaise/fatigue or palpitations. There are no associated agents to hypertension. Risk factors for coronary artery disease include diabetes mellitus, dyslipidemia, obesity and sedentary lifestyle. Past treatments include beta blockers, calcium channel blockers and diuretics. The current treatment provides significant improvement. There are no compliance problems. There is no history of CAD/[place] or heart failure. Diabetes She presents for her follow-up diabetic visit. She has type 2 diabetes mellitus. Her disease course has been improving. There are no hypoglycemic associated symptoms. Pertinent negatives for hypoglycemia include no dizziness, headaches, nervousness/anxiousness, seizures or tremors. Associated symptoms include weight loss. Pertinent negatives for diabetes include no chest pain, no foot paresthesias, no polydipsia, no polyphagia, no polyuria (secondary to water pill) and no visual change. There are no hypoglycemic complications. Symptoms are improving. Risk factors for coronary artery disease include diabetes mellitus, dyslipidemia, hypertension, obesity and sedentary lifestyle. Current diabetic treatment includes oral agent (dual therapy). She is compliant with treatment all of the time. Her overall blood glucose range is 140-180 mg/dl. An SANDRO inhibitor/angiotensin II receptor miriam is not being taken. Eye exam is current. Asthma She complains of frequent throat clearing and shortness of breath. There is no cough, difficulty breathing or wheezing. This is a chronic problem. The current episode started more than 1 year ago. The problem has been unchanged. Associated symptoms include weight loss. Pertinent negatives include no appetite change, chest pain, ear pain, fever, headaches, malaise/fatigue, myalgias, rhinorrhea, sneezing or sore throat. Her symptoms are aggravated by change in weather, strenuous activity and exposure to fumes. Her symptoms are alleviated by steroid inhaler and beta-agonist. She reports significant improvement on treatment. There are no known risk factors for lung disease. Her past medical history is significant for asthma and COPD. SUBJECTIVE: MEDICATIONS: Current Outpatient Medications Medication Instructions [...] puff, Inhalation, Daily, Rinse mouth after use glucose blood (FREESTYLE LITE) test strip Daily, 1 each by In Vitro route Daily hydroCHLOROthiazide (HYDRODIURIL) 25 mg, Oral, Daily metFORMIN (GLUCOPHAGE) 500 mg, Oral, 2 times daily with meals metoprolol tartrate (LOPRESSOR) 50 mg, Oral, 2 times daily Mounjaro 7.5 mg, Every 7 days Nystop [id number] UNIT/GM powder APPLY TO AFFECTED AREA TWICE A DAY FOR 15 DAYS omeprazole (PRILOSEC) 20 mg, Oral, Daily before breakfast ALLERGIES: Allergies Allergen Reactions Cefaclor Hives and Shortness of breath Penicillins Hives and Shortness of breath Pneumococcal Vaccine Hives and Shortness of breath Patient stated allergy to pneumonia vaccine Pneumovax 23 REVIEW OF SYMPTOMS: Review of Systems Constitutional: Positive for weight loss. Negative for appetite change, chills, fever and malaise/fatigue. HENT: Negative for congestion, ear pain, rhinorrhea, sneezing and sore throat. Eyes: Negative for pain, discharge, redness and visual disturbance. Respiratory: Positive for shortness of breath. Negative for cough and wheezing. Cardiovascular: Positive for leg swelling. Negative for chest pain and palpitations. Gastrointestinal: Negative for abdominal pain, blood in stool, constipation, diarrhea, nausea and vomiting. Genitourinary: Negative for difficulty urinating, dysuria and frequency. Musculoskeletal: Positive for back pain. Negative for arthralgias, joint swelling and myalgias. Skin: Negative for rash and wound. Neurological: Negative for dizziness, tremors, seizures, syncope and headaches. Psychiatric/Behavioral: Negative for behavioral problems, self-injury and suicidal ideas. The patient is not nervous/anxious. Hematological: Does not bruise/bleed easily. Endocrine: Negative for polydipsia, polyphagia and polyuria (secondary to water pill). Allergic/Immunologic: Negative for environmental allergies and food allergies. PAST MEDICAL HISTORY Past Medical History: Diagnosis Date Emphysema lung ([facility]) 04/10/2023 Moderate asthma without complication ([facility]) 02/26/2023 Primary hypertension ([facility]) 02/26/2023 Sleep apnea 04/10/2023 Type 2 diabetes mellitus without complication, without long-term current use of insulin ([facility]) 02/26/2023 Past Surgical History: Procedure Laterality Date [...] FOOT SURGERY multiple 1980s+1990s LAPAROTOMY OOPHERECTOMY Right 1990 LIPOMA RESECTION Right 2000 upper arm TONSILLECTOMY 1963 ULTRASOUND 03/23/2021 Liver [...] Sitting, BP Cuff Size: Adult long) Pulse 74 Temp 98.4 F (Temporal) Resp 18 Ht 5' 2 Wt 203 lb 6.4 oz SpO2 95% BMI 37.20 kg/m Smoking Status Former BSA 2.01 m Physical Exam Vitals and nursing note reviewed. Constitutional: General: She is not in acute distress. Appearance: Normal appearance. She is obese. She is not ill-appearing or diaphoretic. HENT: Head: Normocephalic and atraumatic. Right Ear: Tympanic membrane, ear canal and external ear normal. Left Ear: Tympanic membrane, ear canal and external ear normal. Nose: Nose normal. No congestion or rhinorrhea. Mouth/Throat: Mouth: Mucous membranes are moist. Pharynx: No oropharyngeal exudate or posterior oropharyngeal erythema. Eyes: Extraocular Movements: Extraocular movements intact. Conjunctiva/sclera: [...] motion and neck supple. Right lower leg: No edema. Left lower leg: No edema. Comments: Brownish venous insuffiencency no ulcerations Lymphadenopathy: Cervical: No cervical adenopathy. Skin: General: Skin is warm and dry. Capillary Refill: Capillary refill takes 2 to 3 seconds. Findings: No rash. Neurological: General: No focal deficit present. Mental Status: She is alert and oriented to person, place, and time. Comments: Diabetic foot exam: +sensation intact, and vibratory sense Hammer toe right 2nd toe, callous on ball of right foot Psychiatric: Mood and Affect: Mood normal. Behavior: Behavior normal. Thought Content: Thought content normal. Judgment: Judgment normal. ASSESSMENT AND PLAN: Follow up in about 16 weeks (around 10/02/2024) for Recheck. Problem List Items Addressed This Visit Moderate asthma without complication ([facility]) Current meds: breo and albuterol Use of rescue inhaler: Relevant Medications Fluticasone Furoate-Vilanterol (Breo Ellipta) 200-25 MCG/ACT aerosol powder Type 2 diabetes mellitus without complication, without long-term current use of insulin ([facility]) Check blood sugars daily, notify if <70 [...] Current meds: asa, statin, farxiga, metformin, mounjaro A1c: 9.2% on 03/18/24 Relevant Medications aspirin (Aspirin Low Dose) 81 MG EC tablet atorvastatin (Lipitor) 80 MG tablet dapagliflozin (Farxiga) 10 MG metFORMIN (Glucophage) 500 MG tablet Other Relevant Orders Hemoglobin A1c Essential (primary) hypertension ([facility]) Please check blood pressure daily and record DASH diet Limit caffeine Take medication as directed Contact office if chest pain, pressure, dizziness, shortness of breath, swelling legs Recommend slow position changes Current meds: amlodipine, hydrochlorothiazide, metoprolol Relevant Medications aspirin (Aspirin Low Dose) 81 MG EC tablet Environmental and seasonal allergies Relevant Medications cetirizine (ZyrTEC) 10 MG tablet Mixed hyperlipidemia (CMS/HCC) Relevant Medications atorvastatin (Lipitor) 80 MG tablet Sleep apnea You have a diagnosis of obstructive sleep apnea. It is recommended that you wear your PAP device any time while in bed sleeping. Not using the PAP device can increase your risk of elevated/uncontrolled high blood pressure, atrial fibrillation, heart attack, stroke, or sudden . Compliance with PAP: yes How many hours of use per night: 7 Do you feel more refreshed in the morning: not always Company that supplies your machine and tubing/filters etc: [employer] Doctor that manages your MERRILL: no body RESOLVED: Emphysema lung (CMS/HCC) Encounter for screening mammogram for malignant neoplasm of breast Relevant Orders Bilateral screening mammogram Encounter for annual wellness visit (AWV) in Medicare patient - Primary Reviewed Ht/Wt/BMI Recommend eye exam yearly Recommend dental exams twice a year Balance work/leisure activities Exercises is recommended most days of the week (appropriate as chronic conditions allow) Follow up yearly and prn Current mild episode of major depressive disorder without prior episode (HCC) (CMS/HCC) Not currently prescribed any medications, per pt's wishes RAMY 7=0 PHQ 9=2 RESOLVED: Body mass index (BMI) 36.0-36.9, adult Type 2 diabetes mellitus with diabetic peripheral angiopathy without gangrene (CMS/HCC) Cont statin, asa and risk factor modification Morbid (severe) obesity due to excess calories (CMS/HCC) Discussed with patient their BMI (actual, verses recommended). We have also discussed lifestyle modifications: attempts to perform physical activity as chronic conditions allow, also to monitor dietary intake: increasing protein/fruits/veggies and lowering carb intake (unless contraindicated). Limit sodas, juices, and sugary drinks. Is taking mounjaro 20 pounds loss over last 12 months Other emphysema (CMS/HCC) Current meds: breo inhaler and albuterol Other Visit Diagnoses Primary hypertension (CMS/HCC) Relevant Medications amLODIPine (Norvasc) 2.5 MG tablet hydroCHLOROthiazide (HYDRODiuril) 25 MG tablet metoprolol tartrate (Lopressor) 50 MG tablet Gastroesophageal reflux disease, unspecified whether esophagitis present Relevant Medications omeprazole (PriLOSEC) [address] capsule Associated Problem(s): Encounter for annual wellness visit (AWV) in Medicare patient Reviewed Ht/Wt/BMI Recommend eye exam yearly Recommend dental exams twice a year Balance work/leisure activities Exercises is recommended most days of the week (appropriate as chronic conditions allow) Follow up yearly and prn Associated Problem(s): Current mild episode of major depressive disorder without prior episode ([facility]) ([facility]) Not currently prescribed any medications, per pt's wishes RAMY 7=0 PHQ 9=2 Associated Problem(s): Type 2 diabetes mellitus without complication, without long-term current use of insulin ([facility]) Check blood sugars daily, notify if <70 [...] Current meds: asa, statin, farxiga, metformin, mounjaro A1c: 9.2% on 03/18/24 Associated Problem(s): Morbid (severe) obesity due to excess calories ([facility]) Discussed with patient their BMI (actual, verses recommended). We have also discussed lifestyle modifications: attempts to perform physical activity as chronic conditions allow, also to monitor dietary intake: increasing protein/fruits/veggies and lowering carb intake (unless contraindicated). Limit sodas, juices, and sugary drinks. Is taking mounjaro 20 pounds loss over last 12 months Associated Problem(s): Type 2 diabetes mellitus with diabetic peripheral angiopathy without gangrene (CMS/HCC) Cont statin, asa and risk factor modification Associated Problem(s): Essential (primary) hypertension ([facility]) Please check blood pressure daily and record DASH diet Limit caffeine Take medication as directed Contact office if chest pain, pressure, dizziness, shortness of breath, swelling legs Recommend slow position changes Current meds: amlodipine, hydrochlorothiazide, metoprolol Associated Problem(s): Other emphysema (CMS/HCC) Current meds: breo inhaler and albuterol Associated Problem(s): Moderate asthma without complication (CMS/HCC) Current meds: breo and albuterol Use of rescue inhaler: Associated Problem(s): Sleep apnea You have a diagnosis of obstructive sleep apnea. It is recommended that you wear your PAP device any time while in bed sleeping. Not using the PAP device can increase your risk of elevated/uncontrolled high blood pressure, atrial fibrillation, heart attack, stroke, or sudden . Compliance with PAP: yes How many hours of use per night: 7 Do you feel more refreshed in the morning: not always Company that supplies your machine and tubing/filters etc: [employer] Doctor that manages your MERRILL: no body documented in this encounter [facility] 06-12-2024 Instructions Rossana Alicia NP - 06/12/2024 9:40 AM EDT A1c, get done by June 23, documented in this encounter [facility] 04-03-2024 History of Present illness Narrative Images from the original note were not included. Subjective Patient ID: Jaye Beavers is a 68 y.o. female who presents for Foot Problem (Jaye Beavers is a 68 y.o. female. Patient relates Left 5th toenail is sore and discolored. NKI, Patient noticed about 2 weeks ago. Difficult to trim. PCP: Rossana Matamoros 03/06/24, A1C: 9.1 BS: 143). HPI Patient presents complaining of left 5th toe that has been painful for about 2 weeks. She states toe has been slightly red and swollen, she mowed notices it more at the end of the night. She is tried leonel splinting the toe which helps. She denies injury. She states she has been wearing a regular tennis shoes or slippers inside the home. Review of Systems Medications Current Outpatient Medications: albuterol HFA 90 mcg/act inhaler, Inhale 2 puffs every 6 (six) hours if needed for wheezing or shortness of breath, Disp: 17 g, Rfl: 4 amLODIPine (Norvasc) 2.5 MG tablet, Take 1 tablet (2.5 mg) by mouth Daily Take by mouth Daily., Disp: 90 tablet, Rfl: 1 aspirin (Aspirin Low Dose) 81 MG EC tablet, Take 1 tablet (81 mg) by mouth Daily, Disp: 90 tablet, Rfl: 3 atorvastatin (Lipitor) 80 MG tablet, Take 1 tablet (80 mg) by mouth in the evening, Disp: 90 tablet, Rfl: 1 cetirizine (ZyrTEC) 10 MG tablet, Take 1 tablet (10 mg) by mouth Daily, Disp: 90 tablet, Rfl: 1 Continuous Glucose Annealer (Dexcom G7 Annealer) device, 1 each Daily, Disp: 1 each, Rfl: 0 Continuous Glucose Sensor (Dexcom G7 Sensor) misc, 1 each Daily, Disp: 3 each, Rfl: 11 dapagliflozin (Farxiga) 10 MG, Take 1 tablet (10 mg) by mouth Daily, Disp: 90 tablet, Rfl: 1 Fluticasone Furoate-Vilanterol (Breo Ellipta) 200-25 MCG/ACT aerosol powder , Inhale 1 puff Daily Rinse mouth after use, Disp: 3 each, Rfl: 1 hydroCHLOROthiazide (HYDRODiuril) 25 MG tablet, Take 1 tablet (25 mg) by mouth Daily, Disp: 90 tablet, Rfl: 1 metFORMIN (Glucophage) 500 MG tablet, Take 1 tablet (500 mg) by mouth in the morning and 1 tablet (500 mg) in the evening. Take with meals., Disp: 180 tablet, Rfl: 1 metoprolol tartrate (Lopressor) 50 MG tablet, Take 1 tablet (50 mg) by mouth in the morning and 1 tablet (50 mg) before bedtime., Disp: 180 tablet, Rfl: 1 omeprazole (PriLOSEC) [address] capsule, Take 1 capsule (20 mg) by mouth in the morning. Take before meals., Disp: 90 capsule, Rfl: 1 Tirzepatide (Mounjaro) 7.5 MG/0.5ML solution auto-injector, Inject 7.5 mg under the skin every 7 (seven) days, Disp: 12 mL, Rfl: 1 Allergies Cefaclor, Penicillins, and Pneumococcal vaccine Past Surgical History Past Surgical History: Procedure Laterality Date JUDY-ARTERIAL [...] normal, no diabetic complications FOOT SURGERY multiple + LAPAROTOMY OOPHERECTOMY Right 1989 LIPOMA RESECTION Right 1999 upper arm TONSILLECTOMY 1963 ULTRASOUND 03/23/2021 Liver USN: fatty liver, no masses US ARTERIAL DUPLEX LE LT 05/29/2019 mod-prosper atherosclerotic disease US CAROTID - GENERIC 09/02/2020 no significant flow stenosis Family History Family History Problem Relation Name Age of Onset Cancer Mother Leukemia Mother Breast cancer Mother Hyperlipidemia Father Diabetes Father Hypertension Father COPD Father Skin cancer Father Other (bladder cancer) Father Ovarian cancer Other Family history Objective Physical Exam Constitutional: General: She is not in acute distress. HENT: Head: Atraumatic. Cardiovascular: Comments: Pedal pulses: DP pulses are 1/4, PT pulses are 2/4 Skin temp is warm to warm. Varicosities: none Hair growth: present Pulmonary: Breath sounds: Wheezing present. Musculoskeletal: Comments: ROM: AJ dorsiflexion is limited with knee extended and with knee flexed. STJ ROM WNL. MUSCLE STRENGTH: 5/5 for all quadrants without tenderness. PAIN: There is pain with palpation to the distal phalanx of the left 5th digit distally and laterally. There is pain at the DIPJ. There is mild discomfort with palpation to the left 5th nail. There is no pain with palpation to the middle or proximal phalanx. No pain with range motion of PIPJ, some pain with DIPJ ROM at the left 5th digit. DEFORMITIES: lesser digits are contracted b/l. 2nd R contracted digit is semi rigid and painful at PIPJ. Skin: General: Skin is warm. Capillary Refill: Capillary refill takes less than 2 seconds. Findings: No bruising or erythema. Comments: SKIN FINDINGS: There is mild inflammation and erythema noted at the distal aspect left 5th toe. Webspaces are clean and dry. NAIL PATHOLOGY: The left 4th and 5th nails are thick and dystrophic. The left 5th nail is 6-7 mm thick, discolored, raised. It is well attached to the nailbed. HYPERKERATOSIS: none Skin turgor and texture: normal Neurological: Mental Status: She is alert. Comments: No loss of protective sensation, gross sensation intact. Psychiatric: Mood and Affect: Mood normal. Behavior: Behavior normal. XR foot 3+ views left Imaging Result: 3 views foot: AP, MO, and LO of the left foot were taken and show no acute fractures or osseous abnormalities, specifically of L 5th digit. The lesser digits are contracted. Incidental finding of accessory ossicle medial to the navicular tuberosity. AP view shows splaying of 3rd and 4th digits and evidence of old, healed 3rd metatarsal distal shaft fracture. Assessment/Plan ICD-10-CM 1. Pain of toe of left foot M79.675 XR foot 3+ views left 2. Nail dystrophy L60.3 3. Capsulitis of toe, left M77.52 4. Swelling of toe of left foot M79.89 XR foot 3+ views left Patient was examined and evaluated. Discussed clinical and radiographic findings with her. Explained possible causes of her discomfort include the thickened dystrophic nail rubbing in shoe gear causing irritation versus the contracted digit rubbing against her shoe gear, or an injury to the distal digit/joint. The left 5th nail was debrided with small nail nippers and the electronic bur to see if this improved her symptoms. I also recommended leonel splinting the toes and a period of immobilization in surgical shoe to reduce motion and pressure on the toe. Patient declines stating she does not want a surgical shoe with the snow and she has helping a friend currently so she will have to be on her feet more than usual and she does not want to flare her Achilles tendonitis. Therefore, she will try to wear shoe gear that does not rub on the toe. She will see if debridement of the nail improves her symptoms at all. I recommended she continue leonel splinting the toes for a week to see if this improves it. I also dispensed a Silipos pad for her to try on the lateral aspect of the 5th digit after the leonel splinting if she has not improved. RTO 3-4 weeks to check progress. May consider immobilization at that time if pain has persisted. She also requested a 2nd pair of power steps, these were dispensed to her today. This note was created with the assistance of a speech recognition program. While intending to generate a timely document that accurately reflects the content of the visit, no guarantee can be provided that every grammatical or spelling mistake has been or will be identified or corrected. Thank you for your understanding. Cierra Drummond DPM documented in this encounter [facility] 03-06-2024 History of Present illness Narrative Associated [...] her test strips ordered/ refilled Lot number [id number] 50 strips each Code 16 Free style [...] compliance problems. There is no history of CAD/[place] or heart failure. SUBJECTIVE: MEDICATIONS: Current Outpatient [...] Past Medical History: Diagnosis Date Emphysema lung ([facility]) 04/10/2023 Moderate asthma without complication ([facility]) 02/26/2023 Primary hypertension ([facility]) 02/26/2023 Sleep apnea 04/10/2023 Type 2 diabetes mellitus without complication, without long-term current use of insulin ([facility]) 02/26/2023 Past Surgical History: Procedure Laterality Date [...] normal, no diabetic complications FOOT SURGERY multiple 1980s+ LAPAROTOMY OOPHERECTOMY Right 1990 LIPOMA RESECTION Right 2000 upper arm TONSILLECTOMY 1963 ULTRASOUND 03/23/2021 Liver [...] Addressed This Visit Moderate asthma without complication ([facility]) Current meds: breo and albuterol Type 2 diabetes mellitus without complication, without long-term current use of insulin ([facility]) - Primary Check blood sugars daily, notify [...] Sensor (Dexcom G7 Sensor) misc Continuous Glucose Annealer (Dexcom G7 Annealer) device Tirzepatide (Mounjaro) 7.5 MG/0.5ML solution auto-injector [...] (ZyrTEC) 10 MG tablet Mixed hyperlipidemia (CMS/HCC) On statin therapy Check labs yearly and prn Relevant Medications atorvastatin (Lipitor) 80 MG tablet Sleep apnea CPAP use: 6-7 hours per night Tolerates well Emphysema lung (CMS/HCC) Current meds; albuterol prn, breo daily Current mild episode of major depressive disorder without prior episode (HCC) (CMS/HCC) Patient has requested not to take medications [...] Sensor (Dexcom G7 Sensor) misc Continuous Glucose Annealer (Dexcom G7 Annealer) device Needs flu shot Relevant Orders Flu vaccine, trivalent, adjuvanted, PF ([id number]) (Fluad trivalent single dose syringe) (Completed) Other Visit Diagnoses Primary hypertension (CMS/HCC) Relevant Medications amLODIPine (Norvasc) 2.5 MG tablet hydroCHLOROthiazide (HYDRODiuril) 25 MG tablet metoprolol tartrate (Lopressor) 50 MG tablet Gastroesophageal reflux disease, unspecified whether esophagitis present Relevant Medications omeprazole (PriLOSEC) [address] capsule Associated Problem(s): Mixed hyperlipidemia (CMS/HCC) On statin therapy Check labs yearly and prn Associated Problem(s): Current mild episode of major depressive disorder without prior episode (HCC) ([facility]) Patient has requested not to take medications during previous appointments Associated Problem(s): Type 2 diabetes mellitus without complication, without long-term current use of insulin ([facility]) Check blood sugars daily, notify if <70 [...] metoprolol Associated Problem(s): Moderate asthma without complication (CMS/HCC) Current meds: breo and albuterol Associated Problem(s): Emphysema lung (CMS/HCC) Current meds; albuterol prn, breo daily Associated Problem(s): Sleep apnea CPAP use: 6-7 hours per night Tolerates well documented in this encounter [facility] 03-06-2024 Instructions Rossana Alicia NP - 03/06/2024 9:40 AM EST See if we can get dexcom through insurance A1c due 03/14/24 documented in this encounter [facility] 12-05-2023 History of Present illness Narrative Associated Problem(s): Type 2 diabetes mellitus without complication, without long-term current use of insulin (CMS/HCC) Is continuing to demonstrate weight loss, slow sugar response Discontinue rybelsus, will trial mounjaro at 2.5mg, #1 sample given lot [id number], exp 03/06/24 After 3 weeks will let [...] Past Medical History: Diagnosis Date Emphysema lung ([facility]) 04/10/2023 Moderate asthma without complication ([facility]) 02/26/2023 Primary hypertension ([facility]) 02/26/2023 Sleep apnea 04/10/2023 Type 2 diabetes mellitus without complication, without long-term current use of insulin ([facility]) 02/26/2023 Past Surgical History: Procedure Laterality Date [...] FOOT SURGERY multiple 1980s+1990s LAPAROTOMY OOPHERECTOMY Right 1990 LIPOMA RESECTION Right 2000 upper arm TONSILLECTOMY 1963 ULTRASOUND 03/23/2021 Liver [...] mounjaro at 2.5mg, #1 sample given lot [id number], exp 03/06/24 After 3 weeks will let [...] risk factor modification documented in this encounter [facility] 05-17-2022 Note OPERATIVE NOTE OPERATION DATE: 05/17/2022 [...] good condition. CC: Rossana Alicia CNP [facility] 04-18-2022 Note Chief Complaint consultation for screening [...] and Brother. Leukem (more content not included)... [facility] Comment on above: Result Comment: Elec tronically Signed By: FRANKLIN CORTEZ, Julian Smith\Date and Time Signed: 04/18/22 15:13 EST Evaluation + Plan note No data available for this section General Surgery [place] Evaluation note Diagnosis Moderate persistent asthma without complication (CMS/HCC) documented in this encounter [facility] HealthcareEvaluation note* Diagnosis Type 2 diabetes [...] use of insulin (CMS/HCC) BMI 40.0-44.9, adult (CMS/HCC) Moderate persistent asthma without complication (CMS/HCC) Pulmonary [...] long-term current use of insulin (CMS/HCC)- Primary Moderate persistent asthma without complication (CMS/HCC) Obesity (BMI 30-39.9) Acute non-recurrent frontal sinusitis- Primary Environmental and seasonal allergies Non-recurrent acute suppurative otitis media of right ear without spontaneous rupture of tympanic membrane Chronic sinusitis of both maxillary sinuses- Primary Type 2 diabetes mellitus with 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, unspecified whether senior care insulin use (CMS/HCC) Peripheral vascular disease, unspecified (CMS/HCC) Peripheral vascular disease, unspecified Type 2 diabetes [...] disease, unspecified whether esophagitis present Primary hypertension (CMS/HCC) Unspecified essential hypertension documented in this encounter [facility] HealthcareEvaluation note* Diagnosis Type 2 diabetes mellitus [...] use of insulin (CMS/HCC) BMI 40.0-44.9, adult (CMS/[facility]) Moderate persistent asthma without complication (CMS/HCC) Pulmonary [...] long-term current use of insulin (CMS/HCC)- Primary Moderate persistent asthma without complication (CMS/HCC) Obesity (BMI 30-39.9) Acute non-recurrent frontal sinusitis- Primary Environmental and seasonal allergies Non-recurrent acute suppurative otitis media of right ear without spontaneous rupture of tympanic membrane Chronic sinusitis of both maxillary sinuses- Primary Type 2 diabetes mellitus with 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, unspecified whether senior care insulin use (CMS/HCC) Peripheral vascular disease, unspecified (CMS/HCC) Peripheral vascular disease, unspecified Type 2 diabetes [...] of insulin (CMS/HCC) documented in this encounter [facility] HealthcareEvaluation note* Diagnosis Type 2 diabetes mellitus [...] use of insulin (CMS/HCC) BMI 40.0-44.9, adult (CMS/HCC) Moderate persistent asthma without complication (CMS/HCC) Pulmonary emphysema, unspecified emphysema type (CMS/HCC) Primary hypertension (CMS/HCC) Unspecified essential hypertension Encounter for annual wellness visit (AWV) in Medicare patient Current mild episode of major depressive disorder without prior episode (HCC) (CMS/[facility]) Type 2 diabetes mellitus without complication, without long-term current use of insulin (CMS/HCC)- Primary BMI 40.0-44.9, adult ([facility]) Primary hypertension ([facility]) Unspecified essential hypertension Current mild episode of major depressive disorder without prior episode (HCC) ([facility]) Type 2 diabetes mellitus without complication, without long-term current use of insulin ([facility])- Primary Primary hypertension ([facility]) Unspecified essential hypertension Mixed hyperlipidemia ([facility]) Mixed hyperlipidemia Environmental and seasonal allergies Moderate persistent asthma without complication ([facility]) Candidiasis of skin Candidiasis of skin and nails Gastroesophageal reflux disease, unspecified whether esophagitis present Type 2 diabetes mellitus without complication, without long-term current use of insulin ([facility])- Primary Moderate persistent asthma without complication ([facility]) Obesity (BMI 30-39.9) Acute non-recurrent frontal sinusitis- Primary Environmental and seasonal allergies Non-recurrent acute suppurative otitis media of right ear without spontaneous rupture of tympanic membrane Chronic sinusitis of both maxillary sinuses- Primary Type 2 diabetes mellitus with 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, unspecified whether buttermaker continuous churn insulin use ([facility]) Peripheral vascular disease, unspecified ([facility]) Peripheral vascular disease, unspecified Type 2 diabetes mellitus without complication, without long-term current use of insulin ([facility]) Obesity (BMI 30-39.9) Type 2 diabetes mellitus without complication, without long-term current use of insulin ([facility])- Primary Type 2 diabetes mellitus with diabetic peripheral angiopathy without gangrene ([facility]) Essential hypertension Unspecified essential hypertension Mixed hyperlipidemia ([facility]) Mixed hyperlipidemia Primary hypertension ([facility]) Unspecified essential hypertension Environmental and seasonal allergies Chronic sinusitis of both maxillary sinuses Moderate persistent asthma without complication ([facility]) Gastroesophageal reflux disease, unspecified whether esophagitis present Type 2 diabetes mellitus without complication, without long-term current use of insulin ([facility])- Primary Obstructive sleep apnea syndrome Obstructive sleep apnea (adult) (pediatric) Pulmonary emphysema, unspecified emphysema type ([facility]) Moderate persistent asthma without complication ([facility]) Essential hypertension Unspecified essential hypertension Obesity (BMI 30-39.9) Current mild episode of major depressive disorder without prior episode ([facility]) ([facility]) Mixed hyperlipidemia ([facility]) Mixed hyperlipidemia Primary hypertension ([facility]) Unspecified essential hypertension Environmental and seasonal allergies Gastroesophageal reflux disease, unspecified whether esophagitis present Hypoglycemia Hypoglycemia, unspecified Needs flu shot Need for prophylactic vaccination and inoculation against influenza documented in this encounter [facility] HealthcareEvaluation note* Diagnosis Type 2 diabetes mellitus without complication, without long-term current use of insulin ([facility])- Primary Type 2 diabetes mellitus with diabetic peripheral angiopathy without gangrene ([facility]) Essential hypertension Unspecified essential hypertension Mixed hyperlipidemia (CMS/HCC) Mixed hyperlipidemia Primary hypertension ([facility]/HCC) Unspecified essential hypertension Environmental and seasonal allergies Chronic sinusitis of both maxillary sinuses Moderate persistent asthma without complication ([facility]) Gastroesophageal reflux disease, unspecified whether esophagitis present documented in this encounter [facility] HealthcareEvaluation note* Diagnosis Type 2 diabetes mellitus without complication, without long-term current use of insulin ([facility])- Primary documented in this encounter [facility] HealthcareEvaluation note* Diagnosis Type 2 diabetes mellitus without complication, without long-term current use of insulin ([facility])- Primary Primary hypertension ([facility]) Unspecified essential hypertension Moderate persistent asthma without complication ([facility]) Class 3 severe obesity due to excess calories with serious comorbidity in adult, unspecified BMI ([facility]) Environmental and seasonal allergies Mixed hyperlipidemia ([facility]) Mixed hyperlipidemia Gastroesophageal reflux disease, unspecified whether esophagitis present Encounter for screening mammogram for malignant neoplasm of breast- Primary Type 2 diabetes mellitus without complication, without long-term current use of insulin ([facility]) BMI 40.0-44.9, adult ([facility]) Moderate persistent asthma without complication ([facility]) Pulmonary emphysema, unspecified emphysema type ([facility]) Primary hypertension ([facility]/HCC) Unspecified essential hypertension Encounter for annual wellness visit (AWV) in Medicare patient Current mild episode of major depressive disorder without prior episode (HCC) ([facility]) Type 2 diabetes mellitus without complication, without long-term current use of insulin ([facility])- Primary BMI 40.0-44.9, adult ([facility]) Primary hypertension ([facility]/HCC) Unspecified essential hypertension Current mild episode of major depressive disorder without prior episode (HCC) ([facility]/HCC) Type 2 diabetes mellitus without complication, without long-term current use of insulin ([facility]/HCC)- Primary Primary hypertension (CMS/HCC) Unspecified essential hypertension Mixed hyperlipidemia (CMS/HCC) Mixed hyperlipidemia Environmental and seasonal allergies Moderate persistent asthma without complication (CMS/HCC) Candidiasis of skin Candidiasis of skin and nails Gastroesophageal reflux disease, unspecified whether esophagitis present Type 2 diabetes mellitus without complication, without long-term current use of insulin (CMS/[facility])- Primary Moderate persistent asthma without complication (CMS/[facility]) Obesity (BMI 30-39.9) Acute non-recurrent frontal sinusitis- Primary Environmental and seasonal allergies Non-recurrent acute suppurative otitis media of right ear without spontaneous rupture of tympanic membrane Chronic sinusitis of both maxillary sinuses- Primary Type 2 diabetes mellitus with 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, unspecified whether buttermaker continuous churn insulin use (CMS/[facility]) Peripheral vascular disease, unspecified (CMS/[facility]) Peripheral vascular disease, unspecified Type 2 diabetes mellitus without complication, without long-term current use of insulin (CMS/[facility]) Obesity (BMI 30-39.9) Type 2 diabetes mellitus without complication, without long-term current use of insulin ([facility])- Primary Type 2 diabetes mellitus with diabetic peripheral angiopathy without gangrene (CMS/[facility]) Essential hypertension Unspecified essential hypertension Mixed hyperlipidemia (CMS/[facility]) Mixed hyperlipidemia Primary hypertension ([facility]) Unspecified essential hypertension Environmental and seasonal allergies Chronic sinusitis of both maxillary sinuses Moderate persistent asthma without complication (CMS/[facility]) Gastroesophageal reflux disease, unspecified whether esophagitis present Type 2 diabetes mellitus without complication, without long-term current use of insulin ([facility])- Primary Obstructive sleep apnea syndrome Obstructive sleep apnea (adult) (pediatric) Pulmonary emphysema, unspecified emphysema type (CMS/[facility]) Moderate persistent asthma without complication ([facility]) Essential hypertension Unspecified essential hypertension Obesity (BMI 30-39.9) Current mild episode of major depressive disorder without prior episode (HCC) ([facility]) Mixed hyperlipidemia ([facility]/HCC) Mixed hyperlipidemia Primary hypertension ([facility]) Unspecified essential hypertension Environmental and seasonal allergies Gastroesophageal reflux disease, unspecified whether esophagitis present Hypoglycemia Hypoglycemia, unspecified Needs flu shot Need for prophylactic vaccination and inoculation against influenza Pain of toe of left foot- Primary Nail dystrophy Other specified disease of nail Capsulitis of toe, left Swelling of toe of left foot documented in this encounter [facility] HealthcareEvaluation note* Diagnosis Type 2 diabetes mellitus without complication, without long-term current use of insulin ([facility])- Primary Primary hypertension (CMS/[facility]) Unspecified essential hypertension Moderate persistent asthma without complication (CMS/[facility]) Class 3 severe obesity due to excess calories with serious comorbidity in adult, unspecified BMI (CMS/HCC) Environmental and seasonal allergies Mixed hyperlipidemia (CMS/HCC) Mixed hyperlipidemia Gastroesophageal reflux disease, unspecified whether esophagitis present Encounter for screening mammogram for malignant neoplasm of breast- Primary Type 2 diabetes mellitus without complication, without long-term current use of insulin ([facility]) BMI 40.0-44.9, adult ([facility]) Moderate persistent asthma without complication (CMS/[facility]) Pulmonary emphysema, unspecified emphysema type (CMS/[facility]) Primary hypertension ([facility]) Unspecified essential hypertension Encounter for annual wellness visit (AWV) in Medicare patient Current mild episode of major depressive disorder without prior episode (HCC) ([facility]) Type 2 diabetes mellitus without complication, without long-term current use of insulin (CMS/[facility])- Primary BMI 40.0-44.9, adult ([facility]) Primary hypertension ([facility]) Unspecified essential hypertension Current mild episode of major depressive disorder without prior episode (HCC) ([facility]) Type 2 diabetes mellitus without complication, without long-term current use of insulin ([facility])- Primary Primary hypertension ([facility]) Unspecified essential hypertension Mixed hyperlipidemia ([facility]) Mixed hyperlipidemia Environmental and seasonal allergies Moderate persistent asthma without complication ([facility]/HCC) Candidiasis of skin Candidiasis of skin and nails Gastroesophageal reflux disease, unspecified whether esophagitis present Type 2 diabetes mellitus without complication, without long-term current use of insulin ([facility])- Primary Moderate persistent asthma without complication ([facility]) Obesity (BMI 30-39.9) Acute non-recurrent frontal sinusitis- Primary Environmental and seasonal allergies Non-recurrent acute suppurative otitis media of right ear without spontaneous rupture of tympanic membrane Chronic sinusitis of both maxillary sinuses- Primary Type 2 diabetes mellitus with 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, unspecified whether buttermaker continuous churn insulin use ([facility]) Peripheral vascular disease, unspecified ([facility]) Peripheral vascular disease, unspecified Type 2 diabetes mellitus without complication, without long-term current use of insulin ([facility]) Obesity (BMI 30-39.9) Type 2 diabetes mellitus without complication, without long-term current use of insulin ([facility])- Primary Type 2 diabetes mellitus with diabetic peripheral angiopathy without gangrene ([facility]) Essential hypertension Unspecified essential hypertension Mixed hyperlipidemia (CMS/HCC) Mixed hyperlipidemia Primary hypertension ([facility]) Unspecified essential hypertension Environmental and seasonal allergies Chronic sinusitis of both maxillary sinuses Moderate persistent asthma without complication (CMS/HCC) Gastroesophageal reflux disease, unspecified whether esophagitis present Type 2 diabetes mellitus without complication, without long-term current use of insulin (CMS/HCC)- Primary Obstructive sleep apnea syndrome Obstructive sleep apnea (adult) (pediatric) Pulmonary emphysema, unspecified emphysema type (CMS/HCC) Moderate persistent asthma without complication (CMS/HCC) Essential hypertension Unspecified essential hypertension Obesity (BMI 30-39.9) Current mild episode of major depressive disorder without prior episode (HCC) (CMS/HCC) Mixed hyperlipidemia (CMS/HCC) Mixed hyperlipidemia Primary hypertension (CMS/HCC) Unspecified essential hypertension Environmental and seasonal allergies Gastroesophageal reflux disease, unspecified whether esophagitis present Hypoglycemia Hypoglycemia, unspecified Needs flu shot Need for prophylactic vaccination and inoculation against influenza Type 2 diabetes mellitus without complication, without long-term current use of insulin (CMS/HCC)- Primary documented in this encounter [facility] HealthcareEvaluation note* Diagnosis Type 2 diabetes mellitus [...] use of insulin (CMS/HCC) BMI 40.0-44.9, adult (CMS/HCC) Moderate persistent asthma without complication (CMS/HCC) Pulmonary [...] complication, without long-term current use of insulin ([facility])- Primary Moderate persistent asthma without complication (CMS/[facility]) Obesity (BMI 30-39.9) Acute non-recurrent frontal sinusitis- Primary Environmental and seasonal allergies Non-recurrent acute suppurative otitis media of right ear without spontaneous rupture of tympanic membrane Chronic sinusitis of both maxillary sinuses- Primary Type 2 diabetes mellitus with 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, unspecified whether senior care insulin use ([facility]) Peripheral vascular disease, unspecified ([facility]) Peripheral vascular disease, unspecified Type 2 diabetes mellitus without complication, without long-term current use of insulin ([facility]) Obesity (BMI 30-39.9) Type 2 diabetes mellitus without complication, without long-term current use of insulin ([facility])- Primary Type 2 diabetes mellitus with diabetic peripheral angiopathy without gangrene ([facility]) Essential hypertension Unspecified essential hypertension Mixed hyperlipidemia ([facility]) Mixed hyperlipidemia Primary hypertension ([facility]) Unspecified essential hypertension Environmental and seasonal allergies Chronic sinusitis of both maxillary sinuses Moderate persistent asthma without complication ([facility]) Gastroesophageal reflux disease, unspecified whether esophagitis present Type 2 diabetes mellitus without complication, without long-term current use of insulin ([facility])- Primary Obstructive sleep apnea syndrome Obstructive sleep apnea (adult) (pediatric) Pulmonary emphysema, unspecified emphysema type (CMS/HCC) Moderate persistent asthma without complication ([facility]) Essential hypertension Unspecified essential hypertension Obesity (BMI 30-39.9) Current mild episode of major depressive disorder without prior episode (HCC) ([facility]) Mixed hyperlipidemia ([facility]) Mixed hyperlipidemia Primary hypertension ([facility]) Unspecified essential hypertension Environmental and seasonal allergies Gastroesophageal reflux disease, unspecified whether esophagitis present Hypoglycemia Hypoglycemia, unspecified Needs flu shot Need for prophylactic vaccination and inoculation against influenza Encounter for annual wellness visit (AWV) in Medicare patient- Primary Type 2 diabetes mellitus with diabetic peripheral angiopathy without gangrene ([facility]) Morbid (severe) obesity due to excess calories ([facility]) Essential (primary) hypertension ([facility]) Unspecified essential hypertension Body mass index (BMI) 36.0-36.9, adult Obstructive sleep apnea syndrome Obstructive sleep apnea (adult) (pediatric) Pulmonary emphysema, unspecified emphysema type (CMS/HCC) Type 2 diabetes mellitus without complication, without long-term current use of insulin (CMS/HCC) Current mild episode of major depressive disorder without prior episode (HCC) (CMS/HCC) Encounter for screening mammogram for malignant neoplasm of breast Primary hypertension (CMS/HCC) Unspecified essential hypertension Mixed hyperlipidemia (CMS/HCC) Mixed hyperlipidemia Environmental and seasonal allergies Moderate persistent asthma without complication (CMS/HCC) Gastroesophageal reflux disease, unspecified whether esophagitis present [facility] No data available for this section General Surgery [place] Progress note No data available for this section General [facility] [place] Summary Purpose Family History No Family History Records FoundNo Family History Records FoundNo Family History Records Found Advance Directives No Advanced Directives Records FoundNo Advanced Directives Records FoundNo Advanced Directives Records Found Additional Source Comments Patient Care team informatio n (unrecognized section and content) 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 Relationship Specialty Start Date End Date Kuldip Cisneros MD PCP - General Family Medicine 09/15/22 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 Relationship Specialty Start Date End Date Kuldip Cisneros MD [address] [place] [phone] PCP - General Family Medicine 05/21/23 Kuldip Cisneros MD [address] [place] [phone] PCP - [employer] 05/25/23 Rossana lAicia NP [address] [place] [phone] Nurse Practitioner Family Medicine 05/21/23 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 Relationship Specialty Start Date End Date Kuldip Cisneros MD [address] [place] [address] PCP - General Family Medicine 05/21/23 Kuldip Cisneros MD [address] [place] [address] PCP - [employer] 05/25/23 Rossana Alicia NP [address] [place] [address] Nurse Practitioner Family Medicine 05/21/23 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 Relationship Specialty Start Date End Date Kuldip Cisneros MD [address] [place] [phone] PCP - General Family Medicine 05/21/23 Kuldip Cisneros MD [address] [place] [phone] PCP - [employer] 05/25/23 Rossana Alicia NP [address] [place] [address] Nurse Practitioner Family Medicine 05/21/23 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 Relationship Specialty Start Date End Date Kuldip Cisneros MD [address] [place] [address] PCP - General Family Medicine 05/21/23 Kuldip Cisneros MD [address] [place] [address] PCP - [employer] 05/25/23 Rossana Alicia NP [address] [place] [address] Nurse Practitioner Family Medicine 05/21/23 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 Relationship Specialty Start Date End Date Kuldip Cisneros MD [address] [place] [address] PCP - General Family Medicine 05/21/23 Kuldip Cisneros MD [address] [place] [address] PCP - [employer] 05/25/23 Rossana Alicia NP [address] [place] [address] Nurse Practitioner Family Medicine 05/21/23 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 Relationship Specialty Start Date End Date Kuldip Cisneros MD [address] [place] [address] PCP - General Family Medicine 05/21/23 Kuldip Cisneros MD [address] [place] [address] PCP - [employer] 05/25/23 Rossana Alicia NP [address] [place] [address] Nurse Practitioner Family Medicine 05/21/23 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 Relationship Specialty Start Date End Date Kuldip Cisnerso MD [address] [place] [address] PCP - General Family Medicine 05/21/23 Kuldip Cisneros MD [address] [place] [phone] PCP - [employer] 05/25/23 Rossana Alicia NP [address] [place] [phone] Nurse Practitioner Family Medicine 05/21/23 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 Relationship Specialty Start Date End Date Kuldip Cisneros MD [address] [place] [phone] PCP - General Family Medicine 05/21/23 Kuldip Cisneros MD [address] [place] [phone] PCP - [employer] 05/25/23 Rossana Alicia NP [address] [place] [phone] Nurse Practitioner Family Medicine 05/21/23 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 Relationship Specialty Start Date End Date Kuldip Cisneros MD [address] [place] [phone] PCP - General Family Medicine 05/21/23 Kuldip Cisneros MD [address] [place] [phone] PCP - [employer] 05/25/23 Rossana Alicia NP [address] [place] [phone] Nurse Practitioner Family Medicine 05/21/23 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 Relationship Specialty Start Date End Date Kuldip Cisneros MD [address] [place] [phone] PCP - General Family Medicine 05/21/23 Kuldip Cisneros MD [address] [place] [phone] PCP - [employer] 05/25/23 Rossana Alicia NP [address] [place] [phone] Nurse Practitioner Family Medicine 05/21/23 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 Relationship Specialty Start Date End Date Kuldip Cisneros MD [address] [place] [phone] PCP - General Family Medicine 05/21/23 Kuldip Cisneros MD [address] [place] [phone] PCP - [employer] 05/25/23 Rossana Alicia NP [address] [place] [phone] Nurse Practitioner Family Medicine 05/21/23 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 Relationship Specialty Start Date End Date Kuldip Cisneros MD [address] [place] [phone] PCP - General Family Medicine 05/21/23 Kuldip Cisneros MD [address] [place] [phone] PCP - [employer] 05/25/23 Rossana Alicia NP [address] [place] [phone] Nurse Practitioner Family Medicine 05/21/23 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 Relationship Specialty Start Date End Date Kuldip Cisneros MD [address] [place] [phone] PCP - General Family Medicine 05/21/23 Kuldip Cisneors MD [address] [place] [phone] PCP - [employer] 05/25/23 Rossana Alicia NP [address] [place] [phone] Nurse Practitioner Family Medicine 05/21/23 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 Relationship Specialty Start Date End Date Kuldip Cisneros MD [address] [place] [phone] PCP - General Family Medicine 05/21/23 Kuldip Cisneros MD [address] [place] [phone] PCP - [employer] 05/25/23 Rossana Alicia NP [address] [place] [phone] Nurse Practitioner Family Medicine 05/21/23 INFORMATION SOURCE (unrecogn ized section and content) DATE CREATED AUTHOR 06/01/2022 [facility] DATE CREATED AUTHOR AUTHOR'S ORGANIZ ATION 06/16/2022 [facility] DATE CREATED AUTHOR AUTHOR'S ORGANIZ ATION 06/14/2024 [facility] EPIC Reason for Visit (unrecogniz ed section and content) Reason Comments Med Refill Reason Comments Diabetes Reason Comments Foot Problem Jaye Beavers is a 68 y.o. female. Patient relates Left 5th toenail is sore and discolored. NKI, Patient noticed about 2 weeks ago. Difficult to trim. PCP: Rossana Matamoros LV 03/06/24, A1C: 9.1 BS: 143 Reason Comments Medicare Annual Wellness Visit Initial FOR RECORDS PERTAINING TO PATIENTS WHO ARE [...] BE BASED ON THE PRIMARY CLINICAL RECORDS. [employer] [facility]. provides no warranty or guarantee of the accuracy or completeness of information in this document.
[2024-06-21 10:00] LABS: Estimated Average Glucose 171 mg/dL; Glycohemoglobin A1C 7.6 % (4.5-6.2)
== END 2024-06-21 09:06 | disposition home or self-care (01) ==
LOC: LAB 09:06
PROVIDERS: PCP Nurse Practitioner; Visit Provider Nurse Practitioner
DX: E11.9 Type 2 diabetes mellitus without complications (principal)
CPT/HCPCS: 36415; 83036

== ENCOUNTER 2024-07-17 11:21 | Outpatient (OUT) | payer MEDICARE, SELFPAY ==
--- NOTE | 2024-07-17 11:24 | MM_ITS ---
Patient Name: JAYE PIRES MR#: [id number] : 1955 Exam Date: 07/17/2024 Ordering Doctor: RON Alicia CNP RADIOLOGY REPORT PROCEDURE: MM TOMOSYNTHESIS SCREENING BI COMPARISON: MM TOMOSYNTHESIS SCREENING BI, 06/29/2023. MG MAMM SCREEN 3D JOSE CAD, 06/07/2022. MG MAMM SCREEN 3D JOSE CAD, 05/31/2021. MG MAMM SCREEN JOSE W CAD, 12/07/2015. INDICATIONS: Screening Calculator Name NCI Breast Cancer Risk Assessment Tool 5 Year Breast Cancer Risk 5.90% Lifetime Breast Cancer Risk 17.30% Personal Breast Cancer No Personal Ovarian Cancer No Treatments None Family Cancers Sister with breast cancer at age 65; Mother with breast cancer at age 60; Brother with bladder cancer at age 63; Brother with skin cancer at age ~50; Father with skin cancer at age ~60. LOCATION: [facility] BREAST COMPOSITION: The breasts are almost entirely fatty. FINDINGS: DIAGNOSTIC CATEGORY 1--NEGATIVE. RIGHT BREAST: No significant suspicious finding. LEFT BREAST: No significant suspicious finding. RECOMMENDATIONS: ROUTINE MAMMOGRAM AND CLINICAL EVALUATION IN 12 MONTHS. PLEASE NOTE: A NORMAL MAMMOGRAM DOES NOT EXCLUDE THE POSSIBILITY OF BREAST CANCER. A CLINICALLY SUSPICIOUS PALPABLE LUMP SHOULD BE BIOPSIED. Dictated by: Milton Tabor DO on 07/17/2024 at 16:28 Approved by: Milton Tabor DO on 07/17/2024 at 16:29
== END 2024-07-17 11:22 | disposition home or self-care (01) ==
LOC: MAMMO 11:21
PROVIDERS: PCP Nurse Practitioner; Visit Provider Nurse Practitioner
DX: Z12.31 Encounter for screening mammogram for malignant neoplasm of breast (principal); Z80.3 Family history of malignant neoplasm of breast; Z80.8 Family history of malignant neoplasm of other organs or systems; Z80.52 Family history of malignant neoplasm of bladder
CPT/HCPCS: 77063; 77067

== ENCOUNTER 2024-09-11 21:00 | Emergency (ER) | payer MEDICARE, SELFPAY ==
--- OUTSIDE RECORDS SUMMARY | 2024-09-11 21:05 | XMS_ITS | CCD ---
Author Organization [facility] Care Team Providers Care Database Programmer Name Role Phone ROSSANA ALICIA Primary Care Physician Julian BONILLA Attending Unavailable NILLJulian Attending Unavailable AICHMORGAN, ROSSANA Glass Referring Unavailable NILJulian Khoury Attending Unavailable NILJulian Khoury Attending Unavailable AICHHOLZ, ROSSAAN J Referring Unavailable AICHHOLZ, FINAL CIGAR AND BOX EXAMINER ROSSANA Admitting Unavailable AICHHOLZ, FINAL CIGAR AND BOX EXAMINER ROSSANA Attending Unavailable AICHHOLZ, FINAL CIGAR AND BOX EXAMINER ROSSANA Consulting Unavailable AICHHOLZ, FINAL CIGAR AND BOX EXAMINER ROSSANA Primary Care Unavailable NILL ., DR GUERRA Attending Unavailable NILL ., DR GUERRA Consulting Unavailable NILL ., DR GUERRA Admitting Unavailable AICHHOLZ, FINAL CIGAR AND BOX EXAMINER ROSSANA Primary Care Unavailable GURPREET II, PHILIP Consulting Unavailable CIERRA MAGANA Consulting Unavailable AICHHOLZ, FINAL CIGAR AND BOX EXAMINER ROSSANA Admitting Unavailable AICHHOLZ, FINAL CIGAR AND BOX EXAMINER ROSSANA Attending Unavailable AICHHOLZ, FINAL CIGAR AND BOX EXAMINER ROSSANA Consulting Unavailable AICHHOLZ, FINAL CIGAR AND BOX EXAMINER ROSSANA Primary Care Unavailable AICHHOLZ, FINAL CIGAR AND BOX EXAMINER ROSSANA Primary Care Unavailable AICHHOLZ, FINAL CIGAR AND BOX EXAMINER ROSSANA Admitting Unavailable AICHHOLZ, FINAL CIGAR AND BOX EXAMINER ROSSANA Attending Unavailable AICHHOLZ, FINAL CIGAR AND BOX EXAMINER ROSSANA Consulting Unavailable AICHHOLZ, FINAL CIGAR AND BOX EXAMINER ROSSANA Primary Care Unavailable BOBBY, DR RUDDY Nguyen Consulting Unavailable AICHHOLZ, FINAL CIGAR AND BOX EXAMINER ROSSANA Admitting Unavailable AICHHOLZ, FINAL CIGAR AND BOX EXAMINER ROSSANA Attending Unavailable AICHHOLZ, FINAL CIGAR AND BOX EXAMINER ROSSANA Consulting Unavailable Amelia CORTEZ, Kuldip Primary Care Provider Kuldip Cisneros MD Primary Care Provider Aichholz APPLIANCE REPAIRER, Rossana Unavailable Amelia CORTEZ, Kuldip Unavailable AICHHOLZ, ROSSANA Attending Unavailable AICHHOLZ, ROSSANA Attending Unavailable ROSSANA ALICIA Attending Unavailable ROSSANA ALICIA Attending Unavailable ROSSANA ALICIA Attending Unavailable ROSSANA ALICIA Attending Unavailable CIERRA DRUMMOND Attending Unavailable CIERRA DRUMMOND Referring Unavailable Allergies Allergy Classification Reported Allergen(s) Allergy Type Date of Onset Reaction(s) Facility (20 sources) Cefaclor; Translations: [cefaclor] Drug Allergy 9 Abnormal breathing (finding), Hives, Shortness of breath [facility] (3 sources) Penicillin; Translations: [penicillin] Drug Allergy Weal (disorder), Abnormal breathing (finding) [facility] (3 sources) Streptococcus pneumoniae type [...] vaccine] Drug Allergy Dyspnea (finding), Weal (disorder) [facility] (1 source) Cefaclor Drug Allergy 4 [facility] (1 source) Penicillins Drug allergy (disorder) 4 [facility] (1 source) Pneumovax 23 Drug allergy (disorder) 4 [facility] (20 sources) Penicillins Drug Allergy 3 Hives, Shortness of breath [facility] (20 sources) Pneumococcal vaccine Drug Allergy 3 Hives, Shortness of breath [facility] Medications Current Medications Medication Drug Class(es) Dates Sig (Normalized) Sig (Original) [id number] actuat albuterol 0.09 mg/actuat metered dose [...] complication, without long-term current use of insulin Take 1 tablet (81 mg) by mouth [...] complication, without long-term current use of insulin , Mixed hyperlipidemia (CMS/HCC) Take 1 tablet [...] Refills(s) 0 Start Date: 04/18/22 Status: Ordered azelastine hydrochloride 0.5 mg/ml ophthalmic solution (2 sources) Histamine-1 Receptor Antagonist Start: 09-01-2024 End: 09-11-2024 take 1 drop(s) into the eye(s) in the morning azelastine (Optivar) 0.05 % ophthalmic solution Indications: Environmental and seasonal allergies Administer 1 drop into both eyes in the morning and 1 drop in the evening. Do all this for 10 days. 6 mL 09/01/2024 09/11/2024 Active cetirizine hydrochloride 10 mg oral tablet (20 [...] bedtime. 03/06/2024 Discontinued (Therapy completed) Continuous Glucose Cvor Nurse (Dexcom G7 Cvor Nurse) device (13 sources) Start: 03-06-2024 End: 06-12-2024 Continuous Glucose Cvor Nurse (Dexcom G7 Cvor Nurse) device Indications: Type 2 diabetes mellitus without complication, without long-term current use of insulin (CMS/HCC) , Hypoglycemia 1 each Daily 1 each 03/06/2024 06/12/2024 Discontinued (Therapy completed) Start: 03-06-2024 End: 03-06-2024 Continuous Glucose Cvor Nurse (Dexcom G7 Cvor Nurse) device Indications: Type 2 diabetes mellitus without complication, without long-term current use of insulin (CMS/HCC) , Hypoglycemia 1 each Daily 1 each 03/06/2024 03/06/2024 Discontinued (Reorder) Start: 03-06-2024 End: 03-06-2025 Continuous Glucose Cvor Nurse (Dexcom G7 Cvor Nurse) device Indications: Type 2 diabetes mellitus without complication, without long-term current use of insulin (CMS/HCC) , Hypoglycemia 1 each Daily 1 each 03/06/2024 03/06/2025 Active End: 03-06-2024 Continuous Glucose Cvor Nurse (Dexcom G7 Cvor Nurse) device 1 each Daily 03/06/2024 Discontinued (Reorder) Continuous Glucose Sensor (Dexcom G7 Sensor) misc (8 sources) Start: 03-06-2024 End: 04-05-2024 Continuous Glucose Sensor (D excom G7 Sensor) misc Indications: Type 2 diabetes mellitus without complication, without long-term current use of insulin (CMS/HCC) , Hypoglycemia 1 each Daily 3 each 03/06/2024 04/05/2024 Active End: 03-06-2024 Continuous Glucose Sensor (D excom G7 Sensor) misc 1 each Daily 03/06/2024 Discontinued (Reorder) dapagliflozin 10 mg oral tablet (20 sources) Sodium-Glucose Cotransporter 2 Inhibitor Start: 08-16-2023 End: 09-10-2024 take 1 tablet by mouth once daily dapagliflozin (Farxiga) 10 MG Indications: Type 2 diabetes mellitus without complication, without long-term current use of insulin Take 1 tablet (10 mg) by mouth Daily 90 tablet 1 06/12/2024 09/10/2024 Active dexamethasone 1 mg/ml / neomycin 3.5 mg/ml / polymyxin b [id number] unt/ml ophthalmic suspension (2 sources) Aminoglycoside Antibacterial, Polymyxin-class Antibacterial, Corticosteroid Start: 08-27-2024 take 1 drop(s) into the eye(s) four times daily neomycin-polymyxi n-dexAMETHasone (Maxitrol) 0.1 % ophthalmic suspension INSTILL 1 DROP INTO BOTH EYES FOUR TIMES DAILY FOR 5 DAYS 08/27/2024 Active 0.5 ml dulaglutide 1.5 mg/ml auto-injector [...] complication, without long-term current use of insulin Take 1 tablet (500 mg) by mouth [...] Refills(s) 0 Start Date: 03/13/19 Status: Ordered methylPREDNISolone (2 sources) Corticosteroid Start: 09-01-2024 End: 09-08-2024 methylPREDNISolone (Medrol Dospak) 4 MG tablets Indications: Environmental and seasonal allergies Take with food Follow schedule on package instructions 21 tablet 09/01/2024 09/08/2024 Active metoprolol tartrate 50 mg oral tablet (20 [...] Status: Ordered nystatin 100 unt/mg topical powder (11 sources) Polyene Antifungal Start: 04-01-2024 Nystop 1000 00 UNIT/GM powder APPLY TO AFFECTED AREA TWICE A DAY FOR 15 DAYS 04/01/2024 Active Start: 12-12-2022 Nyamyc [id number] UNIT/GM powder Apply 1 application topically in [...] tablet 1 04/10/2023 05/10/2023 Active Tirzepatide (Mounjaro) 10 MG/0.5ML solution auto-injector (4 sources) Start: 08-04-2024 End: 10-27-2024 Tirzepatide (Mounjaro) 10 MG/0.5ML solution auto-injector Indications: Type 2 diabetes mellitus without complication, without long-term current use of insulin Inject 10 mg under the skin every 7 (seven) days 6 mL 1 08/04/2024 10/27/2024 Active Tirzepatide (Mounjaro) 2.5 MG/0.5ML solution pen-injector [...] hyclate 100 mg oral tablet (3 sources) Tetracycline-clas s Drug Start: 10-04-2023 End: 12-05-2023 doxycycline (Vibra-Tabs) [...] In Vitro route Daily 2024 Discontinued (Reorder) Mounjaro 7.5 MG/0.5ML solution auto-injector (6 sources) Start: 05-26-2024 End: 08-04-2024 Mounjaro 7.5 MG/0.5ML solution auto-injector Inject 7.5 mg as directed every 7 (seven) days 05/26/2024 08/04/2024 Discontinued (Ineffective) Start: 05-26-2024 Mounjaro 7.5 M G/0.5ML solution auto-injector Inject 7.5 mg as directed every 7 (seven) days 05/26/2024 Active semaglutide 7 mg oral tablet (6 sources) Start: 09-04-2023 End: 12-05-2023 take 1 tablet by mouth before mealtime semaglutide (Rybelsus) 7 MG tablet Indications: Type 2 diabetes mellitus without complication, without long-term current use of insulin (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; Translations: [SNF USE ORAL HYPOGLYCEMIC DX] Onset: 05-23-2022 Episodic [...] tissue disorders] 04-03-2024 Episodic Other endocrine disorders (18 sources) Hypoglycemia; Translations: [Hypoglycemia, unspecified] Onset: 03-06-2024 [...] nutritional; endocrine; and metabolic disorders (13 sources) Obesity caused by energy imbalance; Translations: [Morbid (severe) obesity due to excess calories] Onset: 06-12-2024 06-12-2024 Chronic Other skin disorders (2 sources) Dystrophia unguium; [...] Episodic/Chronic Immunizations and screening for infectious disease (18 sources) Needs influenza immunization; Translations: [Encounter for immunization] Onset: 03-06-2024 03-06-2024 Episodic Mood disorders (20 sources) Mood disorders Onset: 04-10-2023 Resolved: 06-12-2024 04-10-2023 Mycoses (20 sources) Candidiasis of skin; Translations: [Candidiasis of skin and nail] Onset: 07-03-2023 07-03-2023 Episodic Other nutritional; endocrine; and metabolic disorders (20 sources) Severe obesity; Translations: [Morbid (severe) obesity due to excess calories] Onset: 02-26-2023 Resolved: 08-16-2023 02-26-2023 Chronic Other nutritional; endocrine; and metabolic disorders (20 sources) Body mass index 30+ - obesity; Translations: [Obesity, unspecified] Onset: 08-16-2023 Resolved: 06-12-2024 08-16-2023 Chronic Other screening for suspected conditions (not mental disorders or infectious disease) (20 sources) Screening for malignant neoplasm of colon done; Translations: [Encounter for screening for malignant neoplasm of colon] Onset: 04-18-2022 Episodic Other upper respiratory infections (20 sources) Acute frontal sinusitis; Translations: [Acute frontal sinusitis, unspecified] Onset: 09-12-2023 Resolved: 06-12-2024 09-12-2023 Episodic Otitis media and related conditions (20 sources) Acute suppurative otitis media without spontaneous rupture of ear drum; Translations: [Acute suppurative otitis media without spontaneous rupture of ear drum, right ear] Onset: 09-12-2023 Resolved: 06-12-2024 09-12-2023 Episodic Unclassified (1 source) CONTACT W/AND (SUSP) EXPOS COVID-19; Translations: [CONTACT W/AND (SUSP) EXPOS COVID-19] Onset: 09-01-2021 Results Test Name Value Interpretation Reference Range Facility MM TOMOSYNTHESIS SCREENING B Ion 07-17-2024 [place] [address] Mammography Report Signed Patient: JAYE BEAVERS MR#: [id number] : 1955 Acct:[id number] Age/Sex: 69 / F ADM Date: 07/17/24 Loc: MAMMO Attending Dr: Rossana Alicia NP Ordering Physician: Rossana Alicia NP Results: Date of Service: 07/17/24 Follow Up: Procedure(s): MM tomosynthesis screening BI Accession Number(s): [id number] cc: Rossana Alicia NP Patient Name: JAYE BEAVERS MR#: [id number] : 1955 Exam Date: 07/17/2024 Ordering Doctor: RON Alicia CNP RADIOLOGY REPORT PROCEDURE: MM TOMOSYNTHESIS SCREENING BI COMPARISON: MM TOMOSYNTHESIS SCREENING BI, 06/29/2023. MG MAMM SCREEN 3D JOSE CAD, 06/07/2022. MG MAMM SCREEN 3D JOSE CAD, 05/31/2021. MG MAMM SCREEN JOSE W CAD, 12/07/2015. INDICATIONS: Screening Calculator Name NCI Breast Cancer Risk Assessment Tool 5 Year Breast Cancer Risk 5.90% Lifetime Breast Cancer Risk 17.30% Personal Breast Cancer No Personal Ovarian Cancer No Treatments None Family Cancers Sister with breast cancer at age 65; Mother with breast cancer at age 60; Brother with bladder cancer at age 63; Brother with skin cancer at age 50; Father with skin cancer at age 60. LOCATION: [facility] BREAST COMPOSITION: The breasts are almost entirely fatty. FINDINGS: DIAGNOSTIC CATEGORY 1--NEGATIVE. RIGHT BREAST: No significant suspicious finding. LEFT BREAST: No significant suspicious finding. RECOMMENDATIONS: ROUTINE MAMMOGRAM AND CLINICAL EVALUATION IN 12 MONTHS. PLEASE NOTE: A NORMAL MAMMOGRAM DOES NOT EXCLUDE THE POSSIBILITY OF BREAST CANCER. A CLINICALLY SUSPICIOUS PALPABLE LUMP SHOULD BE BIOPSIED. Dictated by: Milton Tabor DO on 07/17/2024 at 16:28 Approved by: Milton Tabor DO on 07/17/2024 at 16:29 Dictated By: Milton Tabor M.D. Signed By: 07/17/24 1631 DD/ 1629 TD/TT: Adjuster And Inspector: [facility] Radiology, Radiologi MD garrett - 07/17/2024 [place] [address] Mammography Report Signed Patient: JAYE BEAVERS MR#: [id number] : 1955 Acct:[id number] Age/Sex: 69 / F ADM Date: 07/17/24 Loc: MAMMO Attending Dr: Rossana Alicia NP Ordering Physician: Rossana Alicia NP Results: Date of Service: 07/17/24 Follow Up: Procedure(s): MM tomosynthesis screening BI Accession Number(s): [id number] cc: Rossana Alicia NP Patient Name: JAYE BEAVERS MR#: [id number] : 1955 Exam Date: 07/17/2024 Ordering Doctor: RON Alicia CNP RADIOLOGY REPORT PROCEDURE: MM TOMOSYNTHESIS SCREENING BI COMPARISON: MM TOMOSYNTHESIS SCREENING BI, 06/29/2023. MG MAMM SCREEN 3D JOSE CAD, 06/07/2022. MG MAMM SCREEN 3D JOSE CAD, 05/31/2021. MG MAMM SCREEN JOSE W CAD, 12/07/2015. INDICATIONS: Screening Calculator Name NCI Breast Cancer Risk Assessment Tool 5 Year Breast Cancer Risk 5.90% Lifetime Breast Cancer Risk 17.30% Personal Breast Cancer No Personal Ovarian Cancer No Treatments None Family Cancers Sister with breast cancer at age 65; Mother with breast cancer at age 60; Brother with bladder cancer at age 63; Brother with skin cancer at age 50; Father with skin cancer at age 60. LOCATION: [facility] BREAST COMPOSITION: The breasts are almost entirely fatty. FINDINGS: DIAGNOSTIC CATEGORY 1--NEGATIVE. RIGHT BREAST: No significant suspicious finding. LEFT BREAST: No significant suspicious finding. RECOMMENDATIONS: ROUTINE MAMMOGRAM AND CLINICAL EVALUATION IN 12 MONTHS. PLEASE NOTE: A NORMAL MAMMOGRAM DOES NOT EXCLUDE THE POSSIBILITY OF BREAST CANCER. A CLINICALLY SUSPICIOUS PALPABLE LUMP SHOULD BE BIOPSIED. Dictated by: Milton Tabor DO on 07/17/2024 at 16:28 Approved by: Milton Tabor DO on 07/17/2024 at 16:29 Dictated By: iMlton Tabor M.D. Signed By: 07/17/24 1631 DD/ 1629 TD/TT: Adjuster And Inspector: [facility] Radiology Study observation (narrative) [facility] MM TOMOSYNTHESIS SCREENING B IOrdered By: Radiologist Radiology on 07-17-2024 [facility] Work Phone: MLR HEMOGLOBIN A1Con 025 Glucose [Mass/Vol] 171 mg/dL [facility] HbA1c (Bld) [Mass fraction] 7.6 % High 4.5 - 6.2 % [facility] Comment on above: ADA RECOMMENDED LIMI T 4.0 - 6.0 ADA THERAPEUTIC TARGET < 7.0 ACTION SUGGESTED > 7.0 Interpretation and review of laboratory results Abnormal [facility] XR Foot - left 3 [facility] [...] old, healed 3rd metatarsal distal shaft fracture. [facility] Radiology Study observation (narrative) [facility] MLR HEMOGLOBIN A1Con 12-24-2 024 Glucose [Mass/Vol] 217 mg/dL [facility] HbA1c (Bld) [Mass fraction] 9.2 % High 4.5 - 6.2 % [facility] Comment on above: ADA RECOMMENDED LIMI T 4.0 - 6.0 ADA THERAPEUTIC TARGET < 7.0 ACTION SUGGESTED > 7.0 Interpretation and review of laboratory results Abnormal [facility] ALL CBC WITH AUTO DIFFon BASOPHILS ABSOLUTE AUTO 0.0 [facility] Basophils/100 WBC (Bld) 0.5 % 0.2 - 2.0 % [facility] Eosinophils/100 WBC (Bld) 1.4 % 0.9 - 7.0 % [facility] Erythrocyte distribution width (RBC) [Ratio] 14.4 % 11.0 - 15.0 % [facility] Hematocrit (Bld) [Volume fraction] 43.2 % 36.0 - 48.0 % [facility] Hemoglobin (Bld) [Mass/Vol] 13.4 g/dL 12.0 - 16.0 g/dL [facility] IMMATURE GRANULOCYTES ABS AUTO 0.07 High [facility] Immature granulocytes/100 WBC (Bld) 1.2 % High 0.0 - 0.5 % [facility] Interpretation and review of laboratory results Abnormal [facility] LYMPHOCYTES ABSOLUTE AUTO 1.8 [facility] Lymphocytes/100 WBC (Bld) 31.6 % 20.5 - 60.0 % [facility] MCH (RBC) [Entitic mass] 28.0 pg 26.7 - 34.0 pg [facility] MCHC (RBC) [Mass/Vol] 31.0 g/dL 29.9 - 35.2 g/dL [facility] MCV (RBC) [Entitic vol] 90.4 fL 81.0 - 99.0 fL [facility] MONOCYTES ABSOLUTE AUTO 0.3 [facility] Monocytes/100 WBC (Bld) 5.8 % 1.7 - 12.0 % [facility] NEUTROPHILS ABSOLUTE AUTO 3.4 [facility] Neutrophils/100 WBC (Bld) 59.5 % 43.0 - 75.0 % [facility] Platelet mean volume (Bld) [Entitic vol] 8.5 fL Low 9.5 - 13.5 fL [facility] TBH EO # 0.1 [facility] TB PLT 255 [facility] RBC 4.78 [facility] WBC 5.7 Pending sale to [facility] MLR HEMOGLOBIN A1Con 024 Glucose [Mass/Vol] 232 mg/dL [facility] HbA1c (Bld) [Mass fraction] 9.7 % High 4.5 - 6.2 % [facility] Comment on above: ADA RECOMMENDED LIMI T 4.0 - 6.0 ADA THERAPEUTIC TARGET < 7.0 ACTION SUGGESTED > 7.0 Interpretation and review of laboratory results Abnormal Pending sale to [facility] MG MAMM SCREEN 3D JOSE CADon 06-07-2022 MG MAMM SCREEN 3D JOSE CAD Patient: JAYE BEAVERS. Exam Date: 06/07/2022 : 1955 Gender:F Ordering : RON ALICIA [facility] Admission #: [id number] Family : Order #: [id number] CLICK HERE TO VIEW EXAM RADIOLOGY REPORT [...] skin cancer at age 60. LOCATION: [facility] BREAST COMPOSITION: Scattered areas fibroglandular density. [...] MD on 06/07/2022 at 13:35 Normal [facility] Ambulatory Visit Summaryon 0 05-31-2022 Ambulatory [...] Tubular adenoma of colon Normal [facility] General Surgery Office/Clini c Noteon 05-31-2022 [...] Sister. Immunizations Vaccine Date Status Comments SARSCoV2 mRNA(usciaphlx-damu-qkluly) vac 08/18/2021 Recorded SARS-CoV-2 (COVID-19) mRNA BNT-162b2 vax 01/10/2021 Recorded influenza virus vaccine, inactivated 12/14/2020 Recorded SARS-CoV-2 (COVID-19) mRNA BNT-162b2 vax 06/18/2020 Recorded SARS-CoV-2 (COVID-19) mRNA BNT-162b2 vax 05/29/2020 Recorded 2022-04-18: TPV65 influenza virus vaccine, live, trivalent 12/30/2018 Recorded Normal [facility] Comment on above: Result Comment: Elec [...] history of colonic polyps. Normal [facility] Pathology Noteon 05-19-2022 Pathology Note [id number]#1.00CD:127 Normal [facility] Outside Colonoscopyon 2022 Outside Colonoscopy [id number]#1.00CD:127 Normal [facility] POINT OF CARE GLUCOSEon 04-27 Glucose [Mass/Vol] 176 mg/dL Critically high 74-106 [facility] Comment on above: Performed By: #### P OCGLUC ####[facility] [address] [address]Dr. Yilan Estrella Pre-Certification Formon Pre-Certification Form [id number]#1.00CD:127 Normal [facility] Facesheeton 04-20-2022 Facesheet [id number]#1.00CD:127 Normal [facility] Consent for Procedure/Surger yon 04-19-2022 Consent for Procedure/Surgery [id number]#1.00CD:127 Normal [facility] Physician Referralon 023 Physician Referral [id number]#1.00CD:127 Normal [facility] Physician Referralon 023 Physician Referral [id number]:127 Normal [facility] MICROALBUMIN URINEon 022 Albumin, Urine <3.0 Normal Not Estab. [facility] Comment on above: Result Comment: Ve rified by repeat analysis Performed By: #### M ALBLC #### [facility] [address] [place] [address] Dr. Aga Estrella CBC AUTO DIFFon 12-21-2021 BASO # 0.0 103/ul Normal 0.0-0.1 [facility] Comment on above: Performed By: #### C BC #### [facility] [address] [place] [address] Dr. Aga Estrella Basophils/100 WBC (Bld) 0.4 % Normal 0.2-2.0 [facility] Comment on above: Performed By: #### C BC #### [facility] [address] [place] [address] Dr. Aga Estrella EO # 0.1 103/ul Normal 0.0-0.7 [facility] Comment on above: Performed By: #### C BC #### [facility] [address] [place] [address] Dr. Aga Estrella Eosinophils/100 WBC (Bld) 1.6 % Normal 0.9-7.0 [facility] Comment on above: Performed By: #### C BC #### [facility] [address] [place] [address] Dr. Aga Estrella Erythrocyte distribution width (RBC) [Ratio] 14.2 % Normal 11.0-15.0 [facility] Comment on above: Performed By: #### C BC #### [facility] [address] [place] [address] Dr. Aga Estrella Hematocrit (Bld) [Volume fraction] 42.1 % Normal 36.0-48.0 [facility] Comment on above: Performed By: #### C BC #### [facility] [address] [place] [address] Dr. Aga Estrella Hemoglobin (Bld) [Mass/Vol] 13.1 g/dL Normal 12.0-16.0 [facility] Comment on above: Performed By: #### C BC #### [facility] [address] [place] [address] Dr. Aga Estrella IG # 0.02 10e3/ul Normal 0.00-0.03 [facility] Comment on above: Performed By: #### C BC #### [facility] [address] [place] [address] Dr. Aga Estrella IG % 0.4 % Normal 0.0-0.5 [facility] Comment on above: Performed By: #### C BC #### [facility] [address] [place] [address] Dr. Aga Estrella LYMPH # 1.7 103/ul Normal 1.2-3.8 [facility] Comment on above: Performed By: #### C BC #### [facility] [address] [place] [address] Dr. Aga Estrella Lymphocytes/100 WBC (Bld) 29.4 % Normal 20.5-60.0 [facility] Comment on above: Performed By: #### C BC #### [facility] [address] [place] [address] Dr. Aga Estrella MANUAL DIFF REQ NO Normal [facility] Comment on above: Performed By: #### C BC #### [facility] [address] [place] [address] Dr. Aga Estrella MCH (RBC) [Entitic mass] 28.8 pg Normal 26.7-34.0 [facility] Comment on above: Performed By: #### C BC #### [facility] [address] [place] [address] Dr. Aga Estrella MCHC (RBC) [Mass/Vol] 31.1 g/dL Normal 29.9-35.2 [facility] Comment on above: Performed By: #### C BC #### [facility] [address] [place] [address] Dr. Aga Estrella MCV (RBC) [Entitic vol] 92.5 fL Normal 81.0-99.0 [facility] Comment on above: Performed By: #### C BC #### [facility] [address] [place] [address] Dr. Aga Estrella MONO # 0.4 103/ul Normal 0.3-0.8 [facility] Comment on above: Performed By: #### C BC #### [facility] [address] [place] [address] Dr. Aga Estrella Monocytes/100 WBC (Bld) 6.4 % Normal 1.7-12.0 [facility] Comment on above: Performed By: #### C BC #### [facility] [address] [place] [address] Dr. Aga Estrella NEUT # 3.5 103/ul Normal 1.4-6.5 [facility] Comment on above: Performed By: #### C BC #### [facility] [address] [place] [address] Dr. Aga Estrella Neutrophils/100 WBC (Bld) 61.8 % Normal 43.0-75.0 [facility] Comment on above: Performed By: #### C BC #### [facility] [address] [place] [address] Dr. Aga Estrella Platelet mean volume (Bld) [Entitic vol] 10.2 fL Normal 9.5-13.5 [facility] Comment on above: Performed By: #### C BC #### [facility] [address] [place] [address] Dr. Aga Estrella PLT 195 103/ul Normal 150-450 [facility] Comment on above: Performed By: #### C BC #### [facility] [address] [place] [address] Dr. Aga Estrella RBC 4.55 106/ul Normal 4.20-5.40 [facility] Comment on above: Performed By: #### C BC #### [facility] [address] [place] [address] Dr. Aga Estrella WBC 5.7 103/ul Normal 4.0-11.0 [facility] Comment on above: Performed By: #### C BC #### [facility] [address] [place] [address] Dr. Aga Estrella GLYCOHEMOGLOBIN A1Con 2021 ADA RECOMMENDATION SEE BELOW Normal [facility] Comment on above: Result Comment: ADA RECOMMENDED LIMIT 4.0 - 6.0 ADA THERAPEUTIC TARGET < 7.0 ACTION SUGGESTED > 7.0 Performed By: #### A 1C #### [facility] [address] [place] [address] Dr. Aga Estrella Glucose [Mass/Vol] 192 mg/dL Normal [facility] Comment on above: Performed By: #### A 1C #### [facility] [address] [place] [address] Dr. Aga Estrella HbA1c (Bld) [Mass fraction] 8.3 % Critically high 4.5-6.2 [facility] Comment on above: Performed By: #### A 1C #### [facility] [address] [place] [address] Dr. Aga Estrella LIPID PROFILEon 12-21-2021 CHOL-HDL RATIO NORM SEE BELOW Normal [facility] Comment on above: Result Comment: 3.3 - 4.4 LOW RISK 4.4 - 7.1 AVERAGE RISK 7.1 - 11.0 MODERATE RISK >11.0 HIGH RISK Performed By: #### L IPID, CMP #### [facility] [address] [address] [address] Aga Estrella Cholesterol [Mass/Vol] 123 mg/dL Normal <=200 [facility] Comment on above: Performed By: #### L IPID, CMP #### [facility] [address] [address] [address] Aga Estrella Cholesterol in HDL [Mass/Vol] 51 mg/dL Normal 40-60 [facility] Comment on above: Performed By: #### L IPID, CMP #### [facility] [address] [address] [address] Aag Estrella Cholesterol in LDL [Mass/Vol] 45.8 mg/dL Normal [facility] Comment on above: Performed By: #### L IPID, CMP #### [facility] [address] [address] [address] Aga Estrella Cholesterol.total/ Cholesterol in HDL [Mass ratio] 2.4 {ratio} Normal [facility] Comment on above: Performed By: #### L IPID, CMP #### [facility] [address] [address] [address] Aga Estrella HDL NORMAL > or = 60 mg/dl - LO W CARDIOVASCULAR RISK <40 mg/dl - HIGH CARDIOVASCULAR RISK Normal [facility] Comment on above: Performed By: #### L IPID, CMP #### [facility] [address] [address] [address] Aga Estrella LDL CALC NORMAL SEE BELOW Normal [facility] Comment on above: Result Comment: <100 mg/dl OPTIMAL 100 - 129 mg/dl NEAR OR ABOVE OPTIMAL 130 - 159 mg/dl BORDERLINE HIGH 160 - 189 mg/dl HIGH >190 mg/dl VERY HIGH Performed By: #### L IPID, CMP #### [facility] [address] [address] [address] Aga Estrella Triglyceride [Mass/Vol] 131 mg/dL Normal <=150 [facility] Comment on above: Performed By: #### L IPID, CMP #### [facility] [address] [address] [address] Aga Estrella VLDL CALC 26.2 mg/dL Normal [facility] Comment on above: Performed By: #### L IPID, CMP #### [facility] [address] [place] [address] Dr. Aga Estrella PROF 14(COMP METB)on 022 Albumin [Mass/Vol] 3.5 g/dL Normal 3.4-5.0 [facility] Comment on above: Performed By: #### L IPID, CMP #### [facility] [address] [place] [address] Dr. Aga Estrella Albumin/Globulin [Mass ratio] 1.0 {ratio} Normal [facility] Comment on above: Performed By: #### L IPID, CMP #### [facility] [address] [place] [address] Dr. Aga Estrella ALP [Catalytic activity/Vol] 147 U/L Critically high 46-116 [facility] Comment on above: Performed By: #### L IPID, CMP #### [facility] [address] [place] [address] Dr. Aga Estrella ALT [Catalytic activity/Vol] 42 U/L Normal 14-59 [facility] Comment on above: Performed By: #### L IPID, CMP #### [facility] [address] [place] [address] Dr. Aga Estrella Anion gap [Moles/Vol] 12.2 mmol/L Normal [facility] Comment on above: Performed By: #### L IPID, CMP #### [facility] [address] [place] [address] Dr. Aga Estrella AST [Catalytic activity/Vol] 32 U/L Normal 15-37 [facility] Comment on above: Performed By: #### L IPID, CMP #### [facility] [address] [place] [address] Dr. Aga Estrella Bilirubin [Mass/Vol] 0.3 mg/dL Normal 0.2-1.0 [facility] Comment on above: Performed By: #### L IPID, CMP #### [facility] [address] [place] [address] Dr. Aga Estrella Calcium [Mass/Vol] 9.1 mg/dL Normal 8.5-10.1 [facility] Comment on above: Performed By: #### L IPID, CMP #### [facility] [address] [place] [address] Dr. Aga Estrella Chloride [Moles/Vol] 103 mmol/L Normal 98-107 [facility] Comment on above: Performed By: #### L IPID, CMP #### [facility] [address] [address] [address] Aga Estrella CO2 [Moles/Vol] 29.9 mmol/L Normal 21.0-32.0 [facility] Comment on above: Performed By: #### L IPID, CMP #### [facility] [address] [place] [address] Dr. Aga Estrella Creatinine [Mass/Vol] 0.65 mg/dL Normal 0.55-1.02 [facility] Comment on above: Performed By: #### L IPID, CMP #### [facility] [address] [place] [address] Dr. Aga Estrella EGFR-AF NAMIBIAN >60 Normal >=60 [facility] Comment on above: Performed By: #### L IPID, CMP #### [facility] [address] [place] [address] Dr. Aga Estrella EGFR-NON AF NAMIBIAN >60 Normal >=60 [facility] Comment on above: Performed By: #### L IPID, CMP #### [facility] [address] [place] [address] Dr. Aga Estrella Globulin (S) [Mass/Vol] 3.6 g/dL Normal [facility] Comment on above: Performed By: #### L IPID, CMP #### [facility] [address] [address] [address] Aga Estrella Glucose [Mass/Vol] 156 mg/dL Critically high 74-106 [facility] Comment on above: Performed By: #### L IPID, CMP #### [facility] [address] [place] [address] Dr. Aga Estrella Potassium [Moles/Vol] 4.1 mmol/L Normal 3.5-5.1 [facility] Comment on above: Performed By: #### L IPID, CMP #### [facility] [address] [address] [address] Aga Estrella Protein [Mass/Vol] 7.1 g/dL Normal 6.4-8.2 [facility] Comment on above: Performed By: #### L IPID, CMP #### [facility] [address] [address] [address] Aga Estrella Sodium [Moles/Vol] 141 mmol/L Normal 136-145 [facility] Comment on above: Performed By: #### L IPID, CMP #### [facility] [address] [place] [address] Dr. Aga Estrella Urea nitrogen [Mass/Vol] 13.0 mg/dL Normal 7.0-18.0 [facility] Comment on above: Performed By: #### L IPID, CMP #### [facility] [address] [address] [address] Aga Estrella Urea nitrogen/Creatinin e [Mass ratio] 20.0 mg/mg Normal [facility] Comment on above: Performed By: #### L IPID, CMP #### [facility] [address] [address] [address] Aga Estrella UA RANDOM W/MICROSCOPICon BACTERIA NONE SEEN Normal NONE SEEN [facility] Comment on above: Performed By: #### U AMIC ####[facility] [address] [address]DrMavis Estrella Bilirubin Ql (U) Negative Normal NEGATIVE [facility] Comment on above: Performed By: #### U AMIC ####[facility] [address] [address]DrMavis Estrella CAST NONE SEEN Normal NONE SEEN [facility] Comment on above: Performed By: #### U AMIC ####[facility] [address] [address]DrMavis Estrella Clarity (U) CLEAR Normal CLEAR [facility] Comment on above: Performed By: #### U AMIC ####[facility] [address] [id number]. Aga Estrella Color (U) LT. YELLOW Normal YELLOW [facility] Comment on above: Performed By: #### U AMIC ####[facility] [address] [id number]. Aga Estrella Crystals LM Nom (Urine sed) NONE SEEN Normal NONE SEEN [facility] Comment on above: Performed By: #### U AMIC ####[facility] [address] [id number]. Aga Estrella Epithelial cells LM Ql (Urine sed) RARE Normal NONE SEEN /RARE [facility] Comment on above: Performed By: #### U AMIC ####[facility] [address] [address]Dr. Aga Estrella Glucose Ql (U) Negative Normal NEGATIVE [facility] Comment on above: Performed By: #### U AMIC ####[facility] [address] [address]Dr. Aga Estrella Hemoglobin Ql (U) Negative Normal NEGATIVE [facility] Comment on above: Performed By: #### U AMIC ####[facility] [address] [id number]. Aga Estrella Ketones Ql (U) Negative Normal NEGATIVE [facility] Comment on above: Performed By: #### U AMIC ####[facility] [address] [address]Dr. Aga Estrella LEUKOCYTES Negative Normal NEGATIVE [facility] Comment on above: Performed By: #### U AMIC ####[facility] [address] [id number]. Aga Estrella MUCOUS NONE SEEN Normal NONE SEEN [facility] Comment on above: Performed By: #### U AMIC ####[facility] [address] [address]Dr. Aga Estrella Nitrite Ql (U) Negative Normal NEGATIVE [facility] Comment on above: Performed By: #### U AMIC ####[facility] [address] [id number]. Aga Estrella pH (U) 6.0 [pH] Normal 5-9 [facility] Comment on above: Performed By: #### U AMIC ####[facility] [address] [id number]. Aga Estrella RBC NONE SEEN Abnormal 0-2 [facility] Comment on above: Performed By: #### U AMIC ####[facility] [address] [id number]. Aga Estrella SPEC GRAVITY 1.015 Normal 1.005-<=1.0 25 [facility] Comment on above: Performed By: #### U AMIC ####[facility] [address] [address]Dr. Aga Estrella UA PROTEIN Negative Normal NEGATIVE/ TRACE [facility] Comment on above: Performed By: #### U AMIC ####[facility] [address] [address]Dr. Aga Estrella Urobilinogen Qn (U) 0.2 {Kiya'U}/dL Normal 0.2 - 1.0 [facility] Comment on above: Performed By: #### U AMIC ####[facility] [address] [id number]. Aga Estrella WBC 0-2 Abnormal NONE SEEN [facility] Comment on above: Performed By: #### U AMIC ####[facility] [address] [place], [place] [address]Dr. Aga Estrella Covid-19 PCR (CVDTBH)on SARS-CoV-2 (COVID-19) RNA JOSE+probe Ql (Unsp spec) Not detected Normal NOT DETECTED [facility] Comment on above: Result Comment: This test is not yet approved or cleared by the [place] FDA. When there are no FDA-approved or cleared tests available, and other criteria are met, FDA can make tests available under an emergency access mechanism called an Emergency Use Authorization (EUA). The EUA for this test is supported by the [employer] of Health and Human Service's (HHS's) declaration [...] consistent with SARS-CoV-2. Performed By: #### C [facility] #### [facility] [address] [place] [address] Dr. Aga Estrella GLYCOHEMOGLOBIN A1Con 2021 ADA RECOMMENDATION ADA THERAPEUTIC TARG ET 6.0 - 7.0 ACTION SUGGESTED > 7.0 Normal [facility] Comment on above: Performed By: #### A 1C #### [facility] [address] [place] [address] Dr. Aga Estrella Glucose [Mass/Vol] 183 mg/dL Normal [facility] Comment on above: Performed By: #### A 1C #### [facility] [address] [place] [address] Dr. Aga Estrella HbA1c (Bld) [Mass fraction] 8.0 % Critically high <=6.0 [facility] Comment on above: Performed By: #### A 1C #### [facility] [address] [place] [address] Dr. Aga Estrella PROF CHEM 8 (BAS METB)on Anion gap [Moles/Vol] 9.0 mmol/L Normal [facility] Comment on above: Performed By: #### B MP #### [facility] [address] [place] [address] Dr. Aga Estrella Calcium [Mass/Vol] 8.6 mg/dL Normal 8.5-10.1 [facility] Comment on above: Performed By: #### B MP #### [facility] [address] [address] [address] Aga Estrella Chloride [Moles/Vol] 102 mmol/L Normal 98-107 [facility] Comment on above: Performed By: #### B MP #### [facility] [address] [address] [address] Aga Estrella CO2 [Moles/Vol] 32.7 mmol/L Critically high 22.0-30.0 [facility] Comment on above: Performed By: #### B MP #### [facility] [address] [place] [address] Dr. Aga Estrella Creatinine [Mass/Vol] 0.61 mg/dL Normal 0.52-1.04 [facility] Comment on above: Performed By: #### B MP #### [facility] [address] [place] [address] Dr. Aga Estrella EGFR-AF NAMIBIAN >60 Normal >=60 [facility] Comment on above: Performed By: #### B MP #### [facility] [address] [place] [address] Dr. Aga Estrella EGFR-NON AF NAMIBIAN >60 Normal >=60 [facility] Comment on above: Performed By: #### B MP #### [facility] [address] [place] [address] Dr. Aga Estrella Glucose [Mass/Vol] 187 mg/dL Critically high 74-106 [facility] Comment on above: Performed By: #### B MP #### [facility] [address] [place] [address] Dr. Aga Estrella Potassium [Moles/Vol] 3.7 mmol/L Normal 3.4-5.0 [facility] Comment on above: Performed By: #### B MP #### [facility] [address] [address] [address] Aga Estrella Sodium [Moles/Vol] 140 mmol/L Normal 137-145 [facility] Comment on above: Performed By: #### B MP #### [facility] [address] [address] [address] Aga Estrella Urea nitrogen [Mass/Vol] 13.0 mg/dL Normal 7.0-18.0 [facility] Comment on above: Performed By: #### B MP #### [facility] [address] [address] [address] Aga Estrella Urea nitrogen/Creatinin e [Mass ratio] 21.3 mg/mg Normal [facility] Comment on above: Performed By: #### B MP #### [facility] [address] [address] [address] Aga Estrella Vital Signs Date Time Vital Sign Value Performing Clinician Facility 09-01-2024 13:05-0400 Body mass index (BMI) [Ratio] 37.28 kg/m2 Rossanatal Alicia APPLIANCE REPAIRER Work Phone: [facility] 09-01-2024 13:05-0400 Body temperature 98.29 [degF] Rossana Maral APPLIANCE REPAIRER Work Phone: [facility] 09-01-2024 13:05-0400 Body weight 92.44 kg Rossana Aichmorgan APPLIANCE REPAIRER Work Phone: [facility] 09-01-2024 13:05-0400 Diastolic blood pressure 80 mm[Hg] Rossana Aichrodgerz APPLIANCE REPAIRER Work Phone: [facility] 09-01-2024 13:05-0400 Heart rate 75 /min Rossana Aichrodgerz APPLIANCE REPAIRER Work Phone: [facility] 09-01-2024 13:05-0400 Respiratory rate 18 /min Rossana Aichrodgerz APPLIANCE REPAIRER Work Phone: [facility] 09-01-2024 13:05-0400 SaO2% (BldA) [Mass fraction] 93 % Rossana Aichrodgerz APPLIANCE REPAIRER Work Phone: [facility] 09-01-2024 13:05-0400 Systolic blood pressure 118 mm[Hg] Rossana Aichholz APPLIANCE REPAIRER Work Phone: [facility] 06-12-2024 09:47-0400 Body height 157.5 cm Rossana Donovanhrodgerz APPLIANCE REPAIRER Work Phone: [facility] 06-12-2024 09:47-0400 Body mass index (BMI) [Ratio] 37.2 kg/m2 Rossana Alicia APPLIANCE REPAIRER Work Phone: [facility] 06-12-2024 09:47-0400 Body temperature 98.4 [degF] Rossana Macariorodgerz APPLIANCE REPAIRER Work Phone: [facility] 06-12-2024 09:47-0400 Body weight 92.26 kg Rossana Taylorz APPLIANCE REPAIRER Work Phone: [facility] 06-12-2024 09:47-0400 Diastolic blood pressure 82 mm[Hg] Rossana Renaldorodgerz APPLIANCE REPAIRER Work Phone: [facility] 06-12-2024 09:47-0400 Heart rate 74 /min Rossana Macariorodgerz APPLIANCE REPAIRER Work Phone: [facility] 06-12-2024 09:47-0400 Respiratory rate 18 /min Rossana Taylorz APPLIANCE REPAIRER Work Phone: [facility] 06-12-2024 09:47-0400 SaO2% (BldA) [Mass fraction] 95 % Rossana Taylorz APPLIANCE REPAIRER Work Phone: [facility] 06-12-2024 09:47-0400 Systolic blood pressure 122 mm[Hg] Rossana Macariorodgerz APPLIANCE REPAIRER Work Phone: [facility] 04-03-2024 14:56-0500 Body height 157.5 cm Cierra Drummond DPM Work Phone: [facility] 04-03-2024 14:56-0500 Body mass index (BMI) [Ratio] 36.4 kg/m2 Cierra Drummond DPM Work Phone: [facility] 04-03-2024 14:56-0500 Body weight 90.27 kg Cierra Drummond DPM Work Phone: [facility] 03-06-2024 09:50-0500 Body height 157.5 cm Rossana Manquinn APPLIANCE REPAIRER Work Phone: [facility] 03-06-2024 09:50-0500 Body mass index (BMI) [Ratio] 38.56 kg/m2 Rossana Donovanvaleryz APPLIANCE REPAIRER Work Phone: [facility] 03-06-2024 09:50-0500 Body temperature 98.1 [degF] Rossana Aichholz APPLIANCE REPAIRER Work Phone: [facility] 03-06-2024 09:50-0500 Body weight 95.62 kg Rossana Aichholz APPLIANCE REPAIRER Work Phone: [facility] 03-06-2024 09:50-0500 Diastolic blood pressure 82 mm[Hg] Rossana Aichholz APPLIANCE REPAIRER Work Phone: [facility] 03-06-2024 09:50-0500 Heart rate 78 /min Rossana Donovanhholz APPLIANCE REPAIRER Work Phone: [facility] 03-06-2024 09:50-0500 Respiratory rate 18 /min Rossana Donovanhholz APPLIANCE REPAIRER Work Phone: [facility] 03-06-2024 09:50-0500 SaO2% (BldA) [Mass fraction] 94 % Rossana Donovanhholz APPLIANCE REPAIRER Work Phone: [facility] 03-06-2024 09:50-0500 Systolic blood pressure 122 mm[Hg] Rossana Donovanhholz APPLIANCE REPAIRER Work Phone: [facility] 12-05-2023 14:07-0400 Body mass index (BMI) [Ratio] 38.74 kg/m2 Rossana Aichholz APPLIANCE REPAIRER Work Phone: [facility] 12-05-2023 14:07-0400 Body temperature 97.5 [degF] Rossana Aichholz APPLIANCE REPAIRER Work Phone: [facility] 12-05-2023 14:07-0400 Body weight 96.07 kg Rossana Aichholz APPLIANCE REPAIRER Work Phone: [facility] 12-05-2023 14:07-0400 Diastolic blood pressure 86 mm[Hg] Rossana Maral APPLIANCE REPAIRER Work Phone: [facility] 12-05-2023 14:07-0400 Heart rate 70 /min Rossana Maral APPLIANCE REPAIRER Work Phone: [facility] 12-05-2023 14:07-0400 Respiratory rate 20 /min Rossana Maral APPLIANCE REPAIRER Work Phone: [facility] 12-05-2023 14:07-0400 SaO2% (BldA) [Mass fraction] 94 % Rossana Maral APPLIANCE REPAIRER Work Phone: [facility] 12-05-2023 14:07-0400 Systolic blood pressure 120 mm[Hg] Rossana Maral APPLIANCE REPAIRER Work Phone: [facility] 04-18-2022 14:43-0500 Blood Pressure Location Julian GARYL [facility] [place] 04-18-2022 14:43-0500 Diastolic blood pressure 88 mm[Hg] Julian GARYL [facility] [place] 04-18-2022 14:43-0500 Heart rate 80 /min Julian NILL [facility] [place] 04-18-2022 14:43-0500 Respiratory rate 16 /min Julian NILL [facility] [place] 04-18-2022 14:43-0500 Systolic blood pressure 130 mm[Hg] Julian NILL [facility] [place] Encounters Encounter Date Encounter Type Care Provider Facility Start: 09-01-2024 End: 09-01-2024 Bamboo flowsheet Rossana Alicia APPLIANCE REPAIRER Work Phone: [facility] Start: 09-01-2024 End: 09-01-2024 Bamboo flowsheet Rossana Maral APPLIANCE REPAIRER Work Phone: [facility] Start: 09-01-2024 End: 09-01-2024 ambulatory ROSSANA AICHHOLZ Not Available Start: 09-01-2024 End: 09-01-2024 Office outpatient visit 15 minutes Rossana Alicia APPLIANCE REPAIRER Work Phone: [facility] Comment on above: Environmental and se asonal allergies (Primary Dx); Morbid (severe) obesity due to excess calories (CMS/HCC) Start: 08-04-2024 End: 08-04-2024 Refill Rossana Maral APPLIANCE REPAIRER Work Phone: [facility] Comment on above: Type 2 diabetes myke itus without complication, without long- term current use of insulin (Primary Dx) Start: 07-17-2024 End: 07-17-2024 Clinisync Result Encounter Rossana Maral APPLIANCE REPAIRER Work Phone: [facility] External Department Unsolicited Start: 07-17-2024 End: 07-17-2024 Clinisync Result Encounter Rossana Jazz APPLIANCE REPAIRER Work Phone: [facility] External Department Unsolicited Start: 06-21-2024 End: 06-21-2024 Clinisync Result Encounter Rossana Renaldoholz APPLIANCE REPAIRER Work Phone: [facility] External Department Unsolicited Start: 06-21-2024 End: 06-21-2024 Clinisync Result Encounter Rossana Renaldoholz APPLIANCE REPAIRER Work Phone: [facility] External Department Unsolicited Start: 06-12-2024 End: 06-12-2024 Bamboo flowsheet Rossana Maral APPLIANCE REPAIRER Work Phone: [facility] Start: 06-12-2024 End: 06-12-2024 Bamboo flowsheet Rossana Jazz APPLIANCE REPAIRER Work Phone: [facility] Start: 06-12-2024 End: 06-12-2024 Patient encounter procedure Rossana Jazz APPLIANCE REPAIRER Work Phone: [facility] Comment on above: Encounter for annual wellness visit (AWV) in Medicare patient (Primary Dx); Type 2 diabetes mellitus with diabetic peripheral angiopathy without gangrene ([facility]); Morbid (severe) obesity due to excess calories ([facility]); Essential (primary) hypertension ([facility]); Body mass index (BMI) 36.0-36.9, adult; Obstructive sleep apnea syndrome; Pulmonary emphysema, unspecified emphysema type ([facility]); Other emphysema ([facility]); Type 2 diabetes mellitus without complication, without long-term current use of insulin ([facility]); Current mild episode of major depressive disorder without prior episode ([facility]) ([facility] [facility]); Encounter for screening mammogram for malignant neoplasm of breast; Primary hypertension ([facility]); Mixed hyperlipidemia ([facility]); Environmental and seasonal allergies; Moderate persistent asthma without complication ([facility]); Gastroesophageal reflux disease, unspecified whether esophagitis present Start: 06-12-2024 End: 06-12-2024 ambulatory ROSSANA JAZZ Not Available Start: 2024 End: 2024 Refill Rossana Maral APPLIANCE REPAIRER Work Phone: [facility] Comment on above: Type 2 diabetes myek itus without complication, without long- term current use of insulin ([facility]) (Primary Dx) Start: 04-03-2024 End: 04-03-2024 ambulatory CIERRA DRUMMOND Not Available Start: 04-03-2024 End: 04-03-2024 Office outpatient visit 25 minutes Cierra Drummond DPM Work Phone: [facility] Comment on above: Pain of toe of left foot (Primary Dx); Nail dystrophy; Capsulitis of toe, left; Swelling of toe of left foot Start: 04-03-2024 End: 04-03-2024 ambulatory CIERRA DRUMMOND Not Available Start: 04-03-2024 End: 04-03-2024 Bamboo flowsheet Cierra Drummond DPM Work Phone: [facility] Start: 04-03-2024 End: 04-03-2024 Bamboo flowsheet Cierra Drummond DPM Work Phone: [facility] Start: 03-18-2024 End: 03-18-2024 Clinisync Result Encounter Rossana Jazz APPLIANCE REPAIRER Work Phone: [facility] External Department Unsolicited Start: 03-18-2024 End: 03-18-2024 Clinisync Result Encounter Rossanatal Macarioholz APPLIANCE REPAIRER Work Phone: [facility] External Department Unsolicited Start: 03-06-2024 End: 03-06-2024 Bamboo flowsheet Rossana Renaldoholz APPLIANCE REPAIRER Work Phone: [facility] Start: 03-06-2024 End: 03-06-2024 Bamboo flowsheet Rossana Renaldoholz APPLIANCE REPAIRER Work Phone: [facility] Start: 03-06-2024 End: 03-06-2024 Office outpatient visit 25 minutes Rossanatal Macarioholz APPLIANCE REPAIRER Work Phone: [facility] Comment on above: Type 2 diabetes myke itus without complication, without long- term current use of insulin (CMS/[facility]) (Primary Dx); Obstructive sleep apnea syndrome; Pulmonary [...] Start: 02-26-2024 End: 02-26-2024 Refill Rossana Aichholz APPLIANCE REPAIRER Work Phone: [facility] Comment on above: Moderate persistent asthma without complication (CMS/HCC); Type 2 diabetes mellitus without complication, without long-term current use of insulin (CMS/HCC) Start: 01-17-2024 End: 01-17-2024 Refill Rossana Aichholz APPLIANCE REPAIRER Work Phone: [facility] Comment on above: Primary hypertension (CMS/HCC) Start: 12-25-2023 End: 12-25-2023 Refill Rossana Aichholz APPLIANCE REPAIRER Work Phone: [facility] Comment on above: Moderate persistent asthma without complication (CMS/HCC) Start: 12-18-2023 End: 12-18-2023 Refill Rossana Aichholz APPLIANCE REPAIRER Work Phone: [facility] Comment on above: Type 2 diabetes myke itus without complication, without long- term current use of insulin ([facility]) (Primary Dx) Start: 12-14-2023 End: 12-14-2023 Clinisync Result Encounter Rossana Aichholz APPLIANCE REPAIRER Work Phone: [facility] External Department Unsolicited Start: 12-14-2023 End: 12-14-2023 Clinisync Result Encounter Rossana Aichholz APPLIANCE REPAIRER Work Phone: [facility] External Department Unsolicited Start: 12-05-2023 End: 12-05-2023 Bamboo flowsheet Rossana Aichholz APPLIANCE REPAIRER Work Phone: [facility] Start: 12-05-2023 End: 12-05-2023 Bamboo flowsheet Rossana Aichholz APPLIANCE REPAIRER Work Phone: [facility] Start: 12-05-2023 End: 12-05-2023 Office outpatient visit 25 minutes Rossana Aichholz APPLIANCE REPAIRER Work Phone: [facility] Comment on above: Type 2 diabetes myke itus without complication, without long- term current use of insulin ([facility]) (Primary Dx); Type 2 diabetes mellitus with diabetic peripheral angiopathy without gangrene ([facility]); Essential hypertension; Mixed hyperlipidemia ([facility]); Primary hypertension ([facility]); Environmental and seasonal allergies; Chronic sinusitis of both maxillary sinuses; Moderate persistent asthma without complication ([facility]); Gastroesophageal reflux disease, unspecified whether esophagitis present Start: 12-05-2023 End: 12-05-2023 ambulatory ROSSANA AICHHOLZ Not Available Start: 10-01-2023 End: 10-01-2023 ambulatory ROSSANA AICHHOLZ Not Available Start: 09-12-2023 End: 09-12-2023 ambulatory ROSSANA MACARIORODGERArchie Not Available Start: 05-08-2023 Clinisync Result Encounter Heidi Alicia APPLIANCE REPAIRER Work Phone: [facility] External Department Unsolicited Start: 05-08-2023 Clinisync Result Encounter Heidi Alicia APPLIANCE REPAIRER Work Phone: [facility] Department Unsolicited Start: 04-10-2023 Patient encounter procedure Rossana Alicia APPLIANCE REPAIRER Work Phone: [facility] Start: 06-07-2022 End: 06-08-2022 ambulatory [employer] EXAMINER ROSSANA MARAL Facility:[facility] Start: 05-31-2022 End: 06-01-2022 ambulatory Julian R NILL Facility:[facility] Start: 05-31-2022 End: 05-31-2022 Patient encounter procedure Julian R NILL General [facility] Start: 05-24-2022 ambulatory Julian NILL Facility:[facility] Start: 05-17-2022 End: 05-18-2022 ambulatory Julian R NILL Facility:CD:[id number] Start: 04-18-2022 End: 04-19-2022 ambulatory Julian R NILL Facility:[facility] Start: 04-18-2022 End: 04-18-2022 Patient encounter procedure Julian R NILL General Surgery [facility] [place] Start: 03-28-2022 ambulatory Julian R NILL Facility :[facility] Start: 12-21-2021 End: 12-22-2021 ambulatory FINAL [employer] EXAMINER ROSSANA MARAL Facility:[facility] Start: 09-01-2021 End: 09-01-2021 ambulatory FINAL [employer] EXAMINER ROSSANA MARAL Facility:[facility] Start: 07-14-2021 End: 07-15-2021 ambulatory FIN[employer] EXAMINER ROSSANA MARAL Facility:[facility] Procedures Date Procedure Procedure Detail Performing Clinician Start: 07-17-2024 MM TOMOSYNTHESIS SCREENING BI Rossana villarealz APPLIANCE REPAIRER Work Phone: Start: 07-17-2024 Mammography Rossana Jazz APPLIANCE REPAIRER Work Phone: Start: 06-21-2024 MLR HEMOGLOBIN A1C Rossana Taylorz APPLIANCE REPAIRER Work Phone: Start: 04-03-2024 Radex foot complete minimum 3 views Caridad Drummond DPM Work Phone: Start: 03-18-2024 MLR HEMOGLOBIN A1C Rossana Alicia APPLIANCE REPAIRER Work Phone: Start: 12-14-2023 ALL CBC WITH AUTO DIFF Rossanatal Taylorz APPLIANCE REPAIRER Work Phone: Start: 06-29-2023 Mammography Rossana Jazz APPLIANCE REPAIRER Work Phone: Start: 05-08-2023 MLR HEMOGLOBIN A1C Rossana Taylorz APPLIANCE REPAIRER Work Phone: Start: 06-07-2022 Mammography Rossanatal Alicia APPLIANCE REPAIRER Work Phone: Start: 05-17-2022 Colonoscopy Rossana Renaldoholz APPLIANCE REPAIRER Work Phone: Start: 05-17-2022 Colonoscopy Julian GARYL Start: 05-17-2022 Esophagogastroduodenoscopy Julian GARYL Start: 03-26-2013 Cholecystectomy Julian GARYL Start: 02-22-2011 Colonoscopy Julian NILL Start: 03-26-1969 Tonsil and adenoid structure (body structure) Julian GARYL Dilation and curettage Mark BONILLA Esophagogastroduodenoscopy Julia BONILLA Excision of lipoma Julian BENSON Oophorectomy Julian BONILLA Plan of Treatment Date Care Activity Detail Author Start: 05-17-2027 Screening for malign ant neoplasm of colon [facility] Start: 06-16-2026 Glaucoma screening Diabetes: R etinopathy Screening [facility] Start: 03-06-2026 Glaucoma screening Diabetes: R etinopathy Screening [facility] Start: 12-11-2025 Glaucoma screening Diabetes: R etinopathy Screening [facility] Start: 07-17-2025 Screening for malign ant neoplasm of breast Mammogram [facility] Start: 06-16-2025 End: 06-16-2025 Patient encounter procedure 06/16/2025 10:00 AM EDT Office Visit [facility] [address] [place] [address] Rossana Alicia NP [address] [place] [phone] [facility] Start: 06-12-2025 Medicare Annual Well ness (AWV) Medicare Annual Wellness (AWV) [facility] Start: 12-13-2024 Urine screening for protein Diabetes: Urine Protein Screening [facility] Start: 10-06-2024 End: 10-06-2024 Patient encounter procedure 10/06/2024 9:40 AM EDT Office Visit [facility] [address] [place] [address] Rossana Alicia NP [address] [place] [phone] [facility] Start: 09-21-2024 Hemoglobin A1c measurement Diabetes: Hemoglobin A1C [facility] Start: 06-28-2024 Screening for malign ant neoplasm of breast Mammogram [facility] Start: 06-16-2024 Hemoglobin A1c measurement Diabetes: Hemoglobin A1C [facility] Start: 06-12-2024 End: 06-12-2025 Hemoglobin A1c/Hemoglobin.total in Blood Hemoglobin A1c Lab Routine Type 2 diabetes mellitus without complication, without long-term current use of insulin ([facility]) Expected: 06/12/2024 (Approximate), Expires: 06/12/2025 [facility] Comment on above: Expected: 06/12/2024 (Approximate), Expires: 06/12/2025 Start: 06-12-2024 End: 08-12-2025 MG Breast - bilateral Screening Bilateral screening mammogram Imaging Routine Encounter for screening mammogram for malignant neoplasm of breast Expected: 06/12/2024 (Approximate), Expires: 08/12/2025 [facility] Work Phone: Comment on above: Expected: 06/12/2024 (Approximate), Expires: 08/12/2025 Start: 06-12-2024 End: 06-12-2024 Patient encounter procedure [facility] Comment on above: Obstructive sleep ap blanquita syndrome (Primary Dx); Type 2 diabetes mellitus with diabetic peripheral angiopathy without gangrene ([facility]/HCC); Morbid (severe) obesity due to excess calories (CMS/HCC); Essential (primary) hypertension ([facility]/HCC); Body mass index (BMI) 36.0-36.9, adult; Pulmonary emphysema, unspecified emphysema type (CMS/HCC); Other emphysema (CMS/HCC); Type 2 diabetes mellitus without complication, without long-term current use of insulin (CMS/HCC); Current mild episode of major depressive disorder without prior episode (HCC) ([facility]/HCC); Encounter for annual wellness visit (AWV) in Medicare patient; Encounter for screening mammogram for malignant neoplasm of breast Start: 04-29-2024 End: 04-29-2024 Patient encounter procedure 04/29/2024 2:15 PM EST Office Visit [facility] [address] [place] [address] Cierra Drummond DPM [address] [place], [place] [phone] [facility] Start: 04-10-2024 Medicare Annual Well ness (AWV) Medicare Annual Wellness (AWV) [facility] Start: 04-03-2024 End: 04-03-2024 Patient encounter procedure 04/03/2024 3:00 PM EST Office Visit [facility] [address] [place] [address] Cierra Drummond, DPM [address] [place], [place] [id number] Arrived [facility] Comment on above: Arrived Start: 03-06-2024 End: 03-06-2025 Hemoglobin A1c/Hemoglobin.total in Blood Hemoglobin A1c Lab Routine Type 2 diabetes mellitus without complication, without long-term current use of insulin ([facility]/HCC) Expected: 03/06/2024 (Approximate), Expires: 03/06/2025 [facility] Work Phone: Comment on above: Expected: 03/06/2024 (Approximate), Expires: 03/06/2025 Start: 03-06-2024 End: 03-06-2024 Patient encounter procedure [facility] Comment on above: Obstructive sleep ap blanquita syndrome (Primary Dx); Pulmonary emphysema, unspecified emphysema type ([facility]/HCC); Moderate persistent asthma without complication ([facility]); Essential hypertension; Obesity (BMI 30-39.9); Type 2 diabetes mellitus without complication, without long-term current use of insulin ([facility]/HCC); Current mild episode of major depressive disorder without prior episode (HCC) ([facility]); Mixed hyperlipidemia ([facility]); Primary hypertension ([facility]/HCC); Environmental and seasonal allergies; Gastroesophageal reflux disease, unspecified whether esophagitis present Start: 01-27-2024 Urine screening for protein Diabetes: Urine Protein Screening [facility] Start: 01-24-2024 Influenza vaccination Influenza Vacc ine (#1) [facility] Comment on above: Postponed from 11/24 (Patient Does Not Have Time) Start: 01-21-2024 Glaucoma screening Diabetes: R etinopathy Screening [facility] Start: 12-05-2023 End: 12-04-2024 CBC W Auto Differential panel - Blood CBC and differential Lab Routine Type 2 diabetes mellitus without complication, without long-term current use of insulin ([facility]/HCC) Expected: 12/05/2023 (Approximate), Expires: 12/04/2024 [facility] Work Phone: Comment on above: Expected: 12/05/2023 (Approximate), Expires: 12/04/2024 Start: 12-05-2023 End: 12-04-2024 Comprehensive metabolic 2000 panel - Serum or Plasma Comprehensive metabolic panel Lab Routine Essential hypertension Type 2 diabetes mellitus without complication, without long-term current use of insulin (CMS/HCC) Mixed hyperlipidemia (CMS/HCC) Expected: 12/05/2023 (Approximate), Expires: 12/04/2024 [facility] Comment on above: Expected: 12/05/2023 (Approximate), Expires: 12/04/2024 Start: 12-05-2023 End: 12-04-2024 Hemoglobin A1c/Hemoglobin.total in Blood Hemoglobin A1c Lab Routine Type 2 diabetes mellitus without complication, without long-term current use of insulin (CMS/HCC) Expected: 12/05/2023 (Approximate), Expires: 12/04/2024 [facility] Comment on above: Expected: 12/05/2023 (Approximate), Expires: 12/04/2024 Start: 12-05-2023 End: 12-04-2024 Lipid 1996 panel - Serum or Plasma Lipid panel Lab Routine Type 2 diabetes mellitus without complication, without long-term current use of insulin (CMS/HCC) Mixed hyperlipidemia (CMS/HCC) Expected: 12/05/2023 (Approximate), Expires: 12/04/2024 [facility] Comment on above: Expected: 12/05/2023 (Approximate), Expires: 12/04/2024 Start: 12-05-2023 End: 12-04-2024 Microalbumin/Creatinine panel in random Urine Microalbumin / creatinine, urine ratio Lab Routine Essential hypertension Type 2 diabetes mellitus without complication, without long-term current use of insulin (CMS/HCC) Expected: 12/05/2023 (Approximate), Expires: 12/04/2024 [facility] Comment on above: Expected: 12/05/2023 (Approximate), Expires: 12/04/2024 Start: 12-05-2023 End: 12-05-2023 Patient encounter procedure 12/05/2023 2:00 PM EDT Office Visit [facility] [address] [place] [address] Rossana Alicia NP [address] [place] [address] Essential hypertension (Primary Dx); Type 2 diabetes mellitus with diabetic peripheral angiopathy without gangrene (CMS/HCC); Type 2 diabetes mellitus without complication, without long-term current use of insulin (CMS/HCC); Mixed hyperlipidemia (CMS/HCC) [facility] Comment on above: Essential hypertensi on [...] insulin (CMS/HCC) Expected: 12/05/2023 (Approximate), Expires: 12/04/2024 [facility] Comment on above: Expected: 12/05/2023 (Approximate), Expires: 12/04/2024 Start: 11-25-2023 Influenza vaccination Influenza Vacc ine (#1) [facility] Start: 08-06-2023 Hemoglobin A1c measurement Diabetes: Hemoglobin A1C [facility] Start: 06-08-2023 Screening for malign ant neoplasm of breast Mammogram [facility] Start: 05-14-2023 End: 05-14-2023 Patient encounter procedure 05/14/2023 9:40 AM EST Office Visit [facility] [address] [place] [address] Rossana Alicia NP [address] [place] [address] [facility] Start: 04-28-2023 Hemoglobin A1c measurement Diabetes: Hemoglobin A1C [facility] Start: 11-24-2022 Influenza vaccination Influenza Vacc ine (#1) [facility] Start: 1955 Screening for malign ant neoplasm of colon [facility] Immunizations Immunization Date Immunization Notes Care Provider Fa cility 12-12-2024 Seasonal trivalent influenza vaccine, adjuvanted, preservative free Rossana Maral APPLIANCE REPAIRER Work Phone: [facility] 08-18-2021 Pfizer Quinonez Cap SARS-CoV-2 Vaccination Rossana Jazz APPLIANCE REPAIRER Work Phone: [facility] 08-18-2021 SARS-CoV-2 mRNA (ygfzuoeypft-ypne-oijdf se) vaccine Julian NILL [facility] 01-10-2021 SARS-CoV-2 (COVID-19 ) mRNA BNT-162b2 vax Julian NILL [facility] 12-14-2020 influenza virus vaccine, unspecified formulation Julian NILL [facility] 12-14-2020 Influenza, Seasonal, Quadrivalent, Adjuvanted Rossana Donovankingamorgan APPLIANCE REPAIRER Work Phone: [facility] 06-18-2020 SARS-CoV-2 (COVID-19 ) mRNA BNT-162b2 vax Julian NILL [facility] 05-29-2020 SARS-CoV-2 (COVID-19 ) mRNA BNT-162b2 vax Julian NILL [facility] Comment on above: Result Comment: 2022: [id number] 12-30-2018 influenza virus vaccine, live, attenuated, for intranasal use Julian GARYL [facility] Payers Date Payer Category Payer Medicaid [employer] A DVANTAGE [id number] 2021 Private Health Insurance [facility] SUNITA Glisten [facility] [id number] 2021-Present [address] [address] [place] [address] [id number] 2020 Medicare [id number] 1959 Private Health Insurance [id number] 1955 Unknown [id number] [id number]. 727 1955 Unknown [id number] 2.16.840.1.306058.3.579.2. 727 1955 Unknown [id number] 2.16.840.1.041709.3.579.2. 727 1955 Unknown [id number] 2.16.840.1.620492.3.579.2. 727 1955 Unknown [id number] 2.16.840.1.179434.3.579.2. 593 1955 Unknown [id number] 2.16.840.1.914487.3.579.2. 593 1955 Unknown [id number] 2.16.840.1.505768.3.579.2. 593 1955 Unknown [id number] 2.16.840.1.782968.3.579.2. 593 1955 Unknown [id number] 2.16.840.1.938547.3.579.2. 593 1955 Unknown [id number] 2.16.840.1.513098.3.579.2. 1259 1955 Unknown [id number] 2.16.840.1.982679.3.579.2. 1259 1955 Unknown [id number] 2.16.840.1.769590.3.579.2. 1259 1955 Unknown [id number] 2.16.840.1.254003.3.579.2. 9 1955 Unknown [id number] 2.16.840.1.151193.3.579.2. 1258 1955 Unknown [id number] 2.16.840.1.838577.3.579.2. 1258 1955 Unknown [id number] 2.16840.1.645812.3.579.2. 9 1955 Unknown [id number] [id number]. 125 Social History Date Type Detail Facility Start: 04-18-2022 End: 09-12-2023 Tobacco smoking status Ex-smoker (finding) [facility] [place] Tobacco smoking status Never [facility] [place] Start: 04-09-2023 End: 06-12-2024 Sex Assigned At Female [facility] End: 03-26-1994 History of tobacco use Current smoker [facility] End: 03-26-1994 History of tobacco use Cigarette Smoker [facility] Start: 02-22-2023 End: 09-12-2023 Tobacco use and exposure Smokeless tobacco non-user [facility] Start: 04-10-2023 End: 09-01-2024 Alcohol intake Ex-drinker (finding) [facility] Start: 04-09-2023 End: 06-12-2024 History of Social function [facility] Within the last year , have you been afraid of your partner or ex-partner? No [facility] Do you belong to any clubs or organizations such as islam groups, unions, fraternal or athletic groups, or [...] 1 each by In Vitro route Daily [id number] Start: 2024 Functional Status Date Assessment Result Facility 04-18-2022 Functional Status N/A [facility] Clinical Notes 04-18-2022 to 09-01-2024 Rossana Alicia NP - 09/01/2024 1:31 PM Mathew Alicia NP - 09/01/2024 1:29 PM EDVARSHA CASTELLANO - 09/01/2024 1:00 PM Mathew Alicia NP - 09/01/2024 1:00 PM EDTPatient Instructions Note Date & Type Note Facility 09-01-2024 History of Present illness Narrative Associated Problem(s): Morbid (severe) obesity due to excess calories (CMS/[facility]) Discussed with patient their BMI (actual, verses recommended). We have also discussed lifestyle modifications: attempts to perform physical activity as chronic conditions allow, also to monitor dietary intake: increasing protein/fruits/veggies and lowering carb intake (unless contraindicated). Limit sodas, juices, and sugary drinks. Is taking mounjaro Associated Problem(s): Environmental and seasonal allergies Add allergy nasal steroid, as well as allergy eye drops Medrol dose pack, sugars have been less than 180 Fu if not better, quit her polym. B eye drops Pt started having symptoms on Sunday. Pt states her eyes were swollen shut and watery, redness no itchiness. Sore throat started just a couple days ago last night pt had troubles swallowing. Pt states her ears are bothering some, no runny nose, no stuffy nose, pt does have a lot of drainage, no coughing. Blurry vision from watery eyes Pt has been taking her allergy medication daily, not her nasal spray. Pt was given eye drops on Sunday from eye dr but does not seem to be helping. Pt was out Sunday cutting bushes and mowing. States there was a lot of pollen blowing. Images from the original note were not included. Jaye Beavers is a 69 y.o. female presents with chief complaint of Sore Throat HPI: Pt started having symptoms on Sunday. Pt states her eyes were swollen shut and watery, redness no itchiness. Sore throat started just a couple days ago last night pt had troubles swallowing. Pt states her ears are bothering some, no runny nose, no stuffy nose, pt does have a lot of drainage, no coughing. Blurry vision from watery eyes Pt has been taking her allergy medication daily, not her nasal spray. Pt was given eye drops on Sunday from eye dr but does not seem to be helping. Pt was out Sunday cutting bushes and mowing. States there was a lot of pollen blowing. SUBJECTIVE: MEDICATIONS: Current Outpatient Medications Medication Instructions albuterol HFA 90 mcg/act inhaler 2 puffs, Inhalation, Every 6 hours PRN amLODIPine (NORVASC) 2.5 mg, Oral, Daily, Take by mouth Daily. aspirin (ASPIRIN LOW DOSE) 81 mg, Oral, Daily atorvastatin (LIPITOR) 80 mg, Oral, Every evening azelastine (Optivar) 0.05 % ophthalmic solution 1 drop, Both Eyes, 2 times daily cetirizine (ZYRTEC) 10 mg, Oral, Daily dapagliflozin (FARXIGA) 10 mg, Oral, Daily Fluticasone Furoate-Vilanterol (Breo Ellipta) 200-25 MCG/ACT aerosol powder 1 puff, Inhalation, Daily, Rinse mouth after use glucose blood (FREESTYLE LITE) test strip Daily, 1 each by In Vitro route Daily hydroCHLOROthiazide (HYDRODIURIL) 25 mg, Oral, Daily metFORMIN (GLUCOPHAGE) 500 mg, Oral, 2 times daily with meals methylPREDNISolone (Medrol Dospak) 4 MG tablets Take with food Follow schedule on package instructions metoprolol tartrate (LOPRESSOR) 50 mg, Oral, 2 times daily Mounjaro 10 mg, Subcutaneous, Every 7 days [id number] (Maxitrol) 0.1 % ophthalmic suspension INSTILL 1 DROP INTO BOTH EYES FOUR TIMES DAILY FOR 5 DAYS Nystop [id number] UNIT/GM powder APPLY TO AFFECTED AREA TWICE A DAY FOR 15 DAYS omeprazole (PRILOSEC) 20 mg, Oral, Daily before breakfast ALLERGIES: Allergies Allergen Reactions Cefaclor Hives and Shortness of breath Penicillins Hives and Shortness of breath Pneumococcal Vaccine Hives and Shortness of breath Patient stated allergy to pneumonia vaccine Pneumovax 23 REVIEW OF SYMPTOMS: Review of Systems Constitutional: Negative for appetite change, chills and fever. HENT: Positive for rhinorrhea and sore throat. Negative for congestion and ear pain. Eyes: Positive for discharge. Negative for pain, redness and visual disturbance. Respiratory: Negative for [...] Past Medical History: Diagnosis Date Emphysema lung ([facility]) 04/10/2023 Moderate asthma without complication ([facility]) 02/26/2023 Primary hypertension (CMS/HCC) 02/26/2023 Sleep apnea 04/10/2023 Type 2 diabetes mellitus without complication, without long-term current use of insulin 02/26/2023 Past Surgical History: Procedure Laterality Date [...] in her father. OBJECTIVE: Visit Vitals BP 118/80 (BP Location: Left arm, Patient Position: Sitting, BP Cuff Size: Large adult) Pulse 75 Temp 98.3 F (Temporal) Resp 18 Wt 203 lb 12.8 oz SpO2 93% BMI 37.28 kg/m Smoking Status Former BSA 2.01 m Physical Exam Vitals and nursing note reviewed. Constitutional: General: She is not in acute distress. Appearance: Normal appearance. She is obese. She is not ill-appearing. HENT: Head: Normocephalic and atraumatic. Right Ear: Tympanic membrane, ear canal and external ear normal. Left Ear: Ear canal and external ear normal. Ears: Comments: Sm effusion, clear Nose: Rhinorrhea present. Mouth/Throat: Mouth: Mucous membranes are moist. Pharynx: Posterior oropharyngeal erythema (mild, no exudate) present. No oropharyngeal exudate. Eyes: General: No scleral icterus. Extraocular Movements: Extraocular movements intact. Conjunctiva/sclera: Conjunctivae normal. Comments: Conjunctiva injected, no colored drainage Cardiovascular: Rate and Rhythm: Normal rate and [...] Normal range of motion and neck supple. Lymphadenopathy: Cervical: No cervical adenopathy. Skin: General: [...] Judgment normal. ASSESSMENT AND PLAN: Follow up for Next scheduled follow-up. Problem List Items Addressed This Visit Environmental and seasonal allergies - Primary Add allergy nasal steroid, as well as allergy eye drops Medrol dose pack, sugars have been less than 180 Fu if not better, quit her polym. B eye drops Relevant Medications methylPREDNISolone (Medrol Dospak) 4 MG tablets azelastine (Optivar) 0.05 % ophthalmic solution Morbid (severe) obesity due to excess calories (CMS/HCC) Discussed with patient their BMI (actual, verses recommended). We have also discussed lifestyle modifications: attempts to perform physical activity as chronic conditions allow, also to monitor dietary intake: increasing protein/fruits/veggies and lowering carb intake (unless contraindicated). Limit sodas, juices, and sugary drinks. Is taking meena documented in this encounter [facility] 09-01-2024 Instructions Rossana Alicia NP - 09/01/2024 1:00 PM EDT Compress to eyes Allergy meds, add nasal spray and medrol dose back Stop atb eye drop Fu if not better documented in this encounter [facility] 06-12-2024 History of Present illness Narrative Left [...] compliance problems. There is no history of CAD/NC or heart failure. Diabetes She presents for [...] Mounjaro 7.5 mg, Every 7 days Nystop [id number] UNIT/GM powder APPLY TO AFFECTED AREA TWICE [...] Past Medical History: Diagnosis Date Emphysema lung ([facility]) 04/10/2023 Moderate asthma without complication ([facility]) 02/26/2023 Primary hypertension ([facility]) 02/26/2023 Sleep apnea 04/10/2023 Type 2 diabetes mellitus without complication, without long-term current use of insulin ([facility]) 02/26/2023 Past Surgical History: Procedure Laterality Date [...] LAPAROTOMY OOPHERECTOMY Right 1989 LIPOMA RESECTION Right 2000 upper arm TONSILLECTOMY [...] Addressed This Visit Moderate asthma without complication ([facility]) Current meds: breo and albuterol Use of rescue inhaler: Relevant Medications Fluticasone Furoate-Vilanterol (Breo Ellipta) 200-25 MCG/ACT aerosol powder Type 2 diabetes mellitus without complication, without long-term current use of insulin ([facility]) Check blood sugars daily, notify if <70 [...] Relevant Orders Hemoglobin A1c Essential (primary) hypertension (CMS/HCC) Please check blood pressure daily and record [...] that supplies your machine and tubing/filters etc: [employer] Doctor that manages your MERRILL: no body RESOLVED: Emphysema lung ([facility]) Encounter for screening mammogram for malignant neoplasm [...] major depressive disorder without prior episode (HCC) ([facility]) Not currently prescribed any medications, per pt's wishes RAMY 7=0 PHQ 9=2 RESOLVED: Body mass index (BMI) 36.0-36.9, adult Type 2 diabetes mellitus with diabetic peripheral angiopathy without gangrene ([facility]) Cont statin, asa and risk factor modification Morbid (severe) obesity due to excess calories ([facility]) Discussed with patient their BMI (actual, verses [...] and albuterol Other Visit Diagnoses Primary hypertension ([facility]/HCC) Relevant Medications amLODIPine (Norvasc) 2.5 MG tablet [...] of major depressive disorder without prior episode ([facility]) ([facility]) Not currently prescribed any medications, per pt's wishes RAMY 7=0 PHQ 9=2 Associated Problem(s): Type 2 diabetes mellitus without complication, without long-term current use of insulin ([facility]) Check blood sugars daily, notify if <70 [...] factor modification Associated Problem(s): Essential (primary) hypertension (CMS/HCC) Please check blood pressure daily and record [...] MERRILL: no body documented in this encounter [facility] 06-12-2024 Instructions Rossana Alicia NP - 06/12/2024 9:40 AM EDT A1c, get done by June 23, documented in this encounter [facility] 04-03-2024 History of Present illness Narrative [...] Disp: 90 tablet, Rfl: 1 Continuous Glucose Cvor Nurse (Dexcom G7 Cvor Nurse) device, 1 each Daily, Disp: 1 each, [...] Cierra Drummond DPM documented in this encounter [facility] 03-06-2024 History of Present illness Narrative [...] her test strips ordered/ refilled Lot number [id number] 50 strips each Code 16 Free style [...] compliance problems. There is no history of CAD/NC or heart failure. SUBJECTIVE: MEDICATIONS: Current Outpatient [...] Past Medical History: Diagnosis Date Emphysema lung ([facility]) 04/10/2023 Moderate asthma without complication ([facility]) 02/26/2023 Primary hypertension ([facility]) 02/26/2023 Sleep apnea 04/10/2023 Type 2 diabetes mellitus without complication, without long-term current use of insulin ([facility]) 02/26/2023 Past Surgical History: Procedure Laterality Date [...] This Visit Moderate asthma without complication (CMS/HCC) Current meds: breo and albuterol Type 2 diabetes mellitus without complication, without long-term current use of insulin ([facility]) - Primary Check blood sugars daily, notify [...] Sensor (Dexcom G7 Sensor) misc Continuous Glucose Cvor Nurse (Dexcom G7 Cvor Nurse) device Tirzepatide (Mounjaro) 7.5 MG/0.5ML solution auto-injector [...] Sensor (Dexcom G7 Sensor) misc Continuous Glucose Cvor Nurse (Dexcom G7 Cvor Nurse) device Needs flu shot Relevant Orders Flu vaccine, trivalent, adjuvanted, PF ([id number]) (Fluad trivalent single dose syringe) (Completed) Other [...] major depressive disorder without prior episode (HCC) ([facility]) Patient has requested not to take medications during previous appointments Associated Problem(s): Type 2 diabetes mellitus without complication, without long-term current use of insulin ([facility]) Check blood sugars daily, notify if <70 [...] night Tolerates well documented in this encounter [facility] 03-06-2024 Instructions Rossana Alicia NP - 03/06/2024 9:40 AM EST See if we can get dexcom through insurance A1c due 03/14/24 documented in this encounter [facility] 12-05-2023 History of Present illness Narrative Associated Problem(s): Type 2 diabetes mellitus without complication, without long-term current use of insulin (CMS/HCC) Is continuing to demonstrate weight loss, slow sugar response Discontinue rybelsus, will trial mounjaro at 2.5mg, #1 sample given lot [id number], exp 03/06/24 After 3 weeks will let [...] Past Medical History: Diagnosis Date Emphysema lung ([facility]) 04/10/2023 Moderate asthma without complication ([facility]) 02/26/2023 Primary hypertension ([facility]) 02/26/2023 Sleep apnea 04/10/2023 Type 2 diabetes mellitus without complication, without long-term current use of insulin ([facility]) 02/26/2023 Past Surgical History: Procedure Laterality Date [...] FOOT SURGERY multiple 1980s+ LAPAROTOMY OOPHERECTOMY Right 1989 LIPOMA RESECTION Right 2000 upper arm TONSILLECTOMY [...] mounjaro at 2.5mg, #1 sample given lot [id number], exp 03/06/24 After 3 weeks will let [...] risk factor modification documented in this encounter [facility] 05-17-2022 Note OPERATIVE NOTE OPERATION DATE: [...] good condition. CC: Rossana Alicia CNP [facility] 04-18-2022 Note Chief Complaint consultation for [...] Leukem (more content not included)... [facility] Comment on above: Result Comment: Elec tronically Signed By: Julian BONILLA MD\Date and Time Signed: 04/18/22 15:13 EST Evaluation + Plan note No data available for this section General Surgery Shreya Evaluation note Diagnosis Moderate persistent asthma without complication (CMS/HCC) documented in this encounter [facility] HealthcareEvaluation note* Diagnosis Type 2 diabetes [...] 2 diabetes mellitus with 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, unspecified whether care home insulin use (CMS/HCC) Peripheral vascular disease, unspecified [...] Unspecified essential hypertension documented in this encounter [facility] HealthcareEvaluation note* Diagnosis Type 2 diabetes [...] use of insulin (CMS/HCC) BMI 40.0-44.9, adult (CMS/[facility]) Moderate persistent asthma without complication (CMS/HCC) Pulmonary emphysema, unspecified emphysema type (CMS/HCC) Primary hypertension (CMS/HCC) Unspecified essential hypertension Encounter for annual wellness visit (AWV) in Medicare patient Current mild episode of major depressive disorder without prior episode (HCC) (CMS/HCC) Type 2 diabetes mellitus without complication, without long-term current use of insulin (CMS/HCC)- Primary BMI 40.0-44.9, adult ([facility]) Primary hypertension (CMS/HCC) Unspecified essential hypertension Current [...] 2 diabetes mellitus with 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, unspecified whether care home insulin use (CMS/HCC) Peripheral vascular disease, unspecified [...] of insulin (CMS/HCC) documented in this encounter [facility] HealthcareEvaluation note* Diagnosis Type 2 diabetes [...] major depressive disorder without prior episode (HCC) (CMS/[facility]) Type 2 diabetes mellitus without complication, without long-term current use of insulin ([facility])- Primary BMI 40.0-44.9, adult ([facility]) Primary hypertension ([facility]) Unspecified essential hypertension Current mild episode of major depressive disorder without prior episode (HCC) ([facility]) Type 2 diabetes mellitus without complication, without long-term current use of insulin ([facility])- Primary Primary hypertension (CMS/HCC) Unspecified essential hypertension Mixed hyperlipidemia ([facility]) Mixed hyperlipidemia Environmental and seasonal allergies Moderate persistent asthma without complication (CMS/[facility]) Candidiasis of skin Candidiasis of skin and nails Gastroesophageal reflux disease, unspecified whether esophagitis present Type 2 diabetes mellitus without complication, without long-term current use of insulin ([facility])- Primary Moderate persistent asthma without complication ([facility]) Obesity (BMI 30-39.9) Acute non-recurrent frontal sinusitis- Primary Environmental and seasonal allergies Non-recurrent acute suppurative otitis media of right ear without spontaneous rupture of tympanic membrane Chronic sinusitis of both maxillary sinuses- Primary Type 2 diabetes mellitus with 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, unspecified whether care home insulin use ([facility]) Peripheral vascular disease, unspecified ([facility]) Peripheral vascular disease, unspecified Type 2 diabetes mellitus without complication, without long-term current use of insulin ([facility]) Obesity (BMI 30-39.9) Type 2 diabetes mellitus without complication, without long-term current use of insulin ([facility])- Primary Type 2 diabetes mellitus with diabetic peripheral angiopathy without gangrene ([facility] Essential hypertension Unspecified essential hypertension Mixed hyperlipidemia ([facility]) Mixed hyperlipidemia Primary hypertension ([facility]) Unspecified essential hypertension Environmental and seasonal allergies Chronic sinusitis of both maxillary sinuses Moderate persistent asthma without complication ([facility]) Gastroesophageal reflux disease, unspecified whether esophagitis present Type 2 diabetes mellitus without complication, without long-term current use of insulin ([facility])- Primary Obstructive sleep apnea syndrome Obstructive sleep apnea (adult) (pediatric) Pulmonary emphysema, unspecified emphysema type ([facility]) Moderate persistent asthma without complication ([facility]) Essential hypertension Unspecified essential hypertension Obesity (BMI 30-39.9) Current mild episode of major depressive disorder without prior episode (HCC) ([facility]) Mixed hyperlipidemia ([facility]) Mixed hyperlipidemia Primary hypertension (CMS/HCC) Unspecified essential hypertension Environmental and seasonal allergies Gastroesophageal reflux disease, unspecified whether esophagitis present Hypoglycemia Hypoglycemia, unspecified Needs flu shot Need for prophylactic vaccination and inoculation against influenza documented in this encounter [facility] HealthcareEvaluation note* Diagnosis Type 2 diabetes mellitus without complication, without long-term current use of insulin (CMS/HCC)- Primary Type 2 diabetes mellitus with diabetic peripheral angiopathy without gangrene (CMS/HCC) Essential hypertension Unspecified essential hypertension Mixed hyperlipidemia (CMS/HCC) Mixed hyperlipidemia Primary hypertension ([facility]/HCC) Unspecified essential hypertension Environmental and seasonal allergies Chronic sinusitis of both maxillary sinuses Moderate persistent asthma without complication (CMS/HCC) Gastroesophageal reflux disease, unspecified whether esophagitis present documented in this encounter [facility] HealthcareEvaluation note* Diagnosis Type 2 diabetes mellitus without complication, without long-term current use of insulin ([facility])- Primary documented in this encounter [facility] HealthcareEvaluation note* Diagnosis Type 2 diabetes mellitus without complication, without long-term current use of insulin ([facility]/HCC)- Primary Primary hypertension (CMS/HCC) Unspecified essential hypertension Moderate persistent asthma without complication ([facility]) Class 3 severe obesity due to excess calories with serious comorbidity in adult, unspecified BMI (CMS/HCC) Environmental and seasonal allergies Mixed hyperlipidemia ([facility]/HCC) Mixed hyperlipidemia Gastroesophageal reflux disease, unspecified whether esophagitis present Encounter for screening mammogram for malignant neoplasm of breast- Primary Type 2 diabetes mellitus without complication, without long-term current use of insulin (CMS/HCC) BMI 40.0-44.9, adult ([facility]) Moderate persistent asthma without complication (CMS/HCC) Pulmonary emphysema, unspecified emphysema type ([facility]/HCC) Primary hypertension ([facility]/HCC) Unspecified essential hypertension Encounter for annual wellness visit (AWV) in Medicare patient Current mild episode of major depressive disorder without prior episode (HCC) ([facility]) Type 2 diabetes mellitus without complication, without long-term current use of insulin (CMS/HCC)- Primary BMI 40.0-44.9, adult ([facility]) Primary hypertension (CMS/HCC) Unspecified essential hypertension Current mild episode of major depressive disorder without prior episode (HCC) ([facility]/HCC) Type 2 diabetes mellitus without complication, without long-term current use of insulin (CMS/HCC)- Primary Primary hypertension (CMS/HCC) Unspecified essential hypertension Mixed hyperlipidemia ([facility]/HCC) Mixed hyperlipidemia Environmental and seasonal allergies Moderate [...] 2 diabetes mellitus with 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, unspecified whether care home insulin use (CMS/HCC) Peripheral vascular disease, unspecified (CMS/[facility]) Peripheral vascular disease, unspecified Type 2 diabetes mellitus without complication, without long-term current use of insulin (CMS/[facility]) Obesity (BMI 30-39.9) Type 2 diabetes mellitus without complication, without long-term current use of insulin (CMS/[facility])- Primary Type 2 diabetes mellitus with diabetic peripheral angiopathy without gangrene (CMS/[facility]) Essential hypertension Unspecified essential hypertension Mixed hyperlipidemia (CMS/HCC) Mixed hyperlipidemia Primary hypertension (CMS/HCC) Unspecified essential hypertension Environmental and seasonal allergies Chronic sinusitis of both maxillary sinuses Moderate persistent asthma without complication (CMS/HCC) Gastroesophageal reflux disease, unspecified whether esophagitis present Type 2 diabetes mellitus without complication, without long-term current use of insulin (CMS/[facility])- Primary Obstructive sleep apnea syndrome Obstructive sleep apnea (adult) (pediatric) Pulmonary emphysema, unspecified emphysema type (CMS/[facility]) Moderate persistent asthma without complication (CMS/HCC) Essential hypertension Unspecified essential hypertension Obesity (BMI 30-39.9) Current mild episode of major depressive disorder without prior episode (HCC) (CMS/[facility]) Mixed hyperlipidemia (CMS/HCC) Mixed hyperlipidemia Primary hypertension [...] of left foot documented in this encounter [facility] HealthcareEvaluation note* Diagnosis Type 2 diabetes mellitus without complication, without long-term current use of insulin (CMS/[facility])- Primary Primary hypertension (CMS/HCC) Unspecified essential hypertension [...] use of insulin (CMS/HCC) BMI 40.0-44.9, adult ([facility]) Moderate persistent asthma without complication (CMS/HCC) Pulmonary emphysema, unspecified emphysema type (CMS/HCC) Primary hypertension (CMS/HCC) Unspecified essential hypertension Encounter for annual wellness visit (AWV) in Medicare patient Current mild episode of major depressive disorder without prior episode (HCC) (CMS/[facility]) Type 2 diabetes mellitus without complication, without long-term current use of insulin (CMS/HCC)- Primary BMI 40.0-44.9, adult (CMS/[facility]) Primary hypertension (CMS/HCC) Unspecified essential hypertension Current mild episode of major depressive disorder without prior episode (HCC) (CMS/[facility]) Type 2 diabetes mellitus without complication, without [...] 2 diabetes mellitus with 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, unspecified whether care home insulin use (CMS/[facility]) Peripheral vascular disease, unspecified (CMS/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) Peripheral vascular disease, unspecified (CMS/[facility]) Peripheral vascular disease, unspecified Type 2 diabetes mellitus without complication, without long-term current use of insulin (CMS/[facility]) Obesity (BMI 30-39.9) Type 2 diabetes mellitus without complication, without long-term current use of insulin (CMS/[facility])- Primary Type 2 diabetes mellitus with diabetic peripheral angiopathy without gangrene (CMS/[facility]) Essential hypertension Unspecified essential hypertension Mixed hyperlipidemia (CMS/HCC) Mixed hyperlipidemia Primary hypertension (CMS/HCC) Unspecified essential hypertension Environmental and seasonal allergies Chronic sinusitis of both maxillary sinuses Moderate persistent asthma without complication (CMS/HCC) Gastroesophageal reflux disease, unspecified whether esophagitis present Type 2 diabetes mellitus without complication, without long-term current use of insulin (CMS/[facility])- Primary Obstructive sleep apnea syndrome Obstructive sleep [...] with diabetic peripheral angiopathy without gangrene (CMS/HCC) Morbid (severe) obesity due to excess calories (CMS/HCC) Essential (primary) hypertension (CMS/HCC) Unspecified essential hypertension Body mass index (BMI) [...] whether esophagitis present documented in this encounter [facility] HealthcareEvaluation note* Diagnosis Type 2 diabetes mellitus without complication, without long-term current use of insulin- Primary Primary hypertension (CMS/HCC) Unspecified essential hypertension Moderate persistent asthma without complication (CMS/HCC) Class 3 severe obesity due to excess calories with serious comorbidity in adult, unspecified BMI Environmental and seasonal allergies Mixed hyperlipidemia (CMS/HCC) Mixed hyperlipidemia Gastroesophageal reflux disease, unspecified whether esophagitis present Encounter for screening mammogram for malignant neoplasm of breast- Primary Type 2 diabetes mellitus without complication, without long-term current use of insulin BMI 40.0-44.9, adult (CMS/HCC) Moderate persistent asthma without complication (CMS/HCC) Pulmonary emphysema, unspecified emphysema type (CMS/HCC) Primary hypertension ([facility]/HCC) Unspecified essential hypertension Encounter for annual wellness visit (AWV) in Medicare patient Current mild episode of major depressive disorder without prior episode (HCC) (CMS/HCC) Type 2 diabetes mellitus without complication, without long-term current use of insulin- Primary BMI 40.0-44.9, adult (CMS/HCC) Primary hypertension (CMS/HCC) Unspecified essential hypertension Current mild episode of major depressive disorder without prior episode (HCC) (CMS/HCC) Type 2 diabetes mellitus without complication, without long-term current use of insulin- Primary Primary hypertension (CMS/HCC) Unspecified essential hypertension Mixed hyperlipidemia (CMS/HCC) Mixed hyperlipidemia Environmental and seasonal allergies Moderate persistent asthma without complication (CMS/HCC) Candidiasis of skin Candidiasis of skin and nails Gastroesophageal reflux disease, unspecified whether esophagitis present Type 2 diabetes mellitus without complication, without long-term current use of insulin- Primary Moderate persistent asthma without complication (CMS/HCC) Obesity (BMI 30-39.9) Acute non-recurrent frontal sinusitis- Primary Environmental and seasonal allergies Non-recurrent acute suppurative otitis media of right ear without spontaneous rupture of tympanic membrane Chronic sinusitis of both maxillary sinuses- Primary Type 2 diabetes mellitus with 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, unspecified whether care home insulin use (CMS/HCC) Peripheral vascular disease, unspecified (CMS/HCC) Peripheral vascular disease, unspecified Type 2 diabetes mellitus without complication, without long-term current use of insulin Obesity (BMI 30-39.9) Type 2 diabetes mellitus without complication, without long-term current use of insulin- Primary Type 2 diabetes mellitus with diabetic peripheral angiopathy without gangrene (CMS/HCC) Essential hypertension Unspecified essential hypertension Mixed hyperlipidemia (CMS/HCC) Mixed hyperlipidemia Primary hypertension (CMS/HCC) Unspecified essential hypertension Environmental and seasonal allergies Chronic sinusitis of both maxillary sinuses Moderate persistent asthma without complication (CMS/HCC) Gastroesophageal reflux disease, unspecified whether esophagitis present Type 2 diabetes mellitus without complication, without long-term current use of insulin- Primary Obstructive sleep apnea syndrome Obstructive sleep [...] with diabetic peripheral angiopathy without gangrene (CMS/HCC) Morbid (severe) obesity due to excess calories (CMS/HCC) Essential (primary) hypertension (CMS/HCC) Unspecified essential hypertension Body mass index (BMI) 36.0-36.9, adult Obstructive sleep apnea syndrome Obstructive sleep apnea (adult) (pediatric) Pulmonary emphysema, unspecified emphysema type (CMS/HCC) Type 2 diabetes mellitus without complication, without long-term current use of insulin Current mild episode of major depressive disorder without prior episode (HCC) ([facility]) Encounter for screening mammogram for malignant neoplasm of breast Primary hypertension (CMS/HCC) Unspecified essential hypertension Mixed hyperlipidemia (CMS/HCC) Mixed hyperlipidemia Environmental and seasonal allergies Moderate persistent asthma without complication (CMS/HCC) Gastroesophageal reflux disease, unspecified whether esophagitis present Type 2 diabetes mellitus without complication, without long-term current use of insulin- Primary documented in this encounter [facility] HealthcareEvaluation note* Diagnosis Type 2 diabetes mellitus without complication, without long-term current use of insulin- Primary Primary hypertension ([facility]/HCC) Unspecified essential hypertension Moderate persistent asthma without complication ([facility]) Class 3 severe obesity due to excess calories with serious comorbidity in adult, unspecified BMI Environmental and seasonal allergies Mixed hyperlipidemia (CMS/HCC) Mixed hyperlipidemia Gastroesophageal reflux disease, unspecified whether esophagitis present Encounter for screening mammogram for malignant neoplasm of breast- Primary Type 2 diabetes mellitus without complication, without long-term current use of insulin BMI 40.0-44.9, adult ([facility]) Moderate persistent asthma without complication ([facility]) Pulmonary emphysema, unspecified emphysema type ([facility]) Primary hypertension ([facility]) Unspecified essential hypertension Encounter for annual wellness visit (AWV) in Medicare patient Current mild episode of major depressive disorder without prior episode (HCC) ([facility]) Type 2 diabetes mellitus without complication, without long-term current use of insulin- Primary BMI 40.0-44.9, adult ([facility]) Primary hypertension ([facility]) Unspecified essential hypertension Current mild episode of major depressive disorder without prior episode (HCC) ([facility]) Type 2 diabetes mellitus without complication, without long-term current use of insulin- Primary Primary hypertension ([facility]) Unspecified essential hypertension Mixed hyperlipidemia (CMS/[facility]) Mixed hyperlipidemia Environmental and seasonal allergies Moderate persistent asthma without complication ([facility]) Candidiasis of skin Candidiasis of skin and nails Gastroesophageal reflux disease, unspecified whether esophagitis present Type 2 diabetes mellitus without complication, without long-term current use of insulin- Primary Moderate persistent asthma without complication (CMS/HCC) Obesity (BMI 30-39.9) Acute non-recurrent frontal sinusitis- Primary Environmental and seasonal allergies Non-recurrent acute suppurative otitis media of right ear without spontaneous rupture of tympanic membrane Chronic sinusitis of both maxillary sinuses- Primary Type 2 diabetes mellitus with 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, unspecified whether care home insulin use (CMS/HCC) Peripheral vascular disease, unspecified ([facility]) Peripheral vascular disease, unspecified Type 2 diabetes mellitus without complication, without long-term current use of insulin Obesity (BMI 30-39.9) Type 2 diabetes mellitus without complication, without long-term current use of insulin- Primary Type 2 diabetes mellitus with diabetic peripheral angiopathy without gangrene (CMS/HCC) Essential hypertension Unspecified essential hypertension Mixed hyperlipidemia (CMS/HCC) Mixed hyperlipidemia Primary hypertension (CMS/HCC) Unspecified essential hypertension Environmental and seasonal allergies Chronic sinusitis of both maxillary sinuses Moderate persistent asthma without complication (CMS/HCC) Gastroesophageal reflux disease, unspecified whether esophagitis present Type 2 diabetes mellitus without complication, without long-term current use of insulin- Primary Obstructive sleep apnea syndrome Obstructive sleep [...] with diabetic peripheral angiopathy without gangrene (CMS/HCC) Morbid (severe) obesity due to excess calories (CMS/HCC) Essential (primary) hypertension (CMS/HCC) Unspecified essential hypertension Body mass index (BMI) 36.0-36.9, adult Obstructive sleep apnea syndrome Obstructive sleep apnea (adult) (pediatric) Pulmonary emphysema, unspecified emphysema type (CMS/HCC) Type 2 diabetes mellitus without complication, without long-term current use of insulin Current mild episode of major depressive disorder without prior episode (HCC) ([facility]/HCC) Encounter for screening mammogram for malignant neoplasm of breast Primary hypertension (CMS/HCC) Unspecified essential hypertension Mixed hyperlipidemia (CMS/HCC) Mixed hyperlipidemia Environmental and seasonal allergies Moderate persistent asthma without complication (CMS/HCC) Gastroesophageal reflux disease, unspecified whether esophagitis present Environmental and seasonal allergies- Primary Morbid (severe) obesity due to excess calories (CMS/HCC) documented in this encounter [facility] HealthcareHospital Discharge instructions No data available for this section General Surgery [place] note No data available for this section General Surgery Shreya Summary Purpose Family History No Family History Records FoundNo Family History Records FoundNo Family History Records Found Advance Directives No Advanced Directives Records FoundNo Advanced Directives Records FoundNo Advanced Directives Records Found Additional Source Comments Patient Care team informatio n (unrecognized section and content) Database Programmer Relationship Specialty Start Date End Date Kuldip Cisneros MD PCP - General Family Medicine 09/15/22 Database Programmer Relationship Specialty Start Date End Date Kuldip Cisneros MD [address] [place] [address] PCP - General Family Medicine 05/21/23 Kuldip Cisneros MD [address] [place] [address] PCP - [employer] 05/25/23 Rossana Alicia NP [address] [place] [address] Nurse Practitioner Family Medicine 05/21/23 Database Programmer Relationship Specialty Start Date End Date Kuldip Cisneros MD [address] [place] [address] PCP - General Family Medicine 05/21/23 Kuldip Cisneros MD [address] [place] [address] PCP - [employer] 05/25/23 Rossana Alicia NP [address] [place] [address] Nurse Practitioner Family Medicine 05/21/23 Database Programmer Relationship Specialty Start Date End Date Kuldip Cisneros MD [address] [place] [address] PCP - General Family Medicine 05/21/23 Kuldip Cisneros MD [address] [place] [address] PCP - [employer] 05/25/23 Rossana Alicia NP [address] [place] [address] Nurse Practitioner Family Medicine 05/21/23 Database Programmer Relationship Specialty Start Date End Date Kuldip Cisneros MD [address] [place] [address] PCP - General Family Medicine 05/21/23 Kuldip Cisneros MD [address] [place] [address] PCP - [employer] 05/25/23 Rossana Alicia, AYDEE [address] [place] [address] Nurse Practitioner Family Medicine 05/21/23 Database Programmer Relationship Specialty Start Date End Date Kuldip Cisneros MD [address] [place] [address] PCP - General Family Medicine 05/21/23 Kuldip Cisneros MD [address] [place] [address] PCP - [employer] 05/25/23 Rossana Alicia NP [address] [place] [address] Nurse Practitioner Family Medicine 05/21/23 Database Programmer Relationship Specialty Start Date End Date Kuldip Cisneros MD [address] [place] [address] PCP - General Family Medicine 05/21/23 Kuldip Cisneros MD [address] [place] [address] PCP - [employer] 05/25/23 Rossana Alicia NP [address] [place] [address] Nurse Practitioner Family Medicine 05/21/23 Database Programmer Relationship Specialty Start Date End Date Kuldip Cisneros MD [address] [place] [address] PCP - General Family Medicine 05/21/23 Kuldip Cisneros MD [address] [place] [address] PCP - [employer] 05/25/23 Rossana Alicia NP [address] [place] [address] Nurse Practitioner Family Medicine 05/21/23 Database Programmer Relationship Specialty Start Date End Date Kuldip Cisneros MD [address] [place] [address] PCP - General Family Medicine 05/21/23 Kuldip Cisneros MD [address] [place] [address] PCP - [employer] 05/25/23 Rossana Alicia NP [address] [place] [address] Nurse Practitioner Family Medicine 05/21/23 Database Programmer Relationship Specialty Start Date End Date Kuldip Cisneros MD [address] [place] [address] PCP - General Family Medicine 05/21/23 Kuldip Cisneros MD [address] [place] [address] PCP - [employer] 05/25/23 Rossana Alicia NP [address] [place] [address] Nurse Practitioner Family Medicine 05/21/23 Database Programmer Relationship Specialty Start Date End Date Kuldip Cisneros MD [address] [place] [address] PCP - General Family Medicine 05/21/23 Kuldip Cisneros MD [address] [place] [address] PCP - [employer] 05/25/23 Rossana Alicia NP [address] [place] [address] Nurse Practitioner Family Medicine 05/21/23 Database Programmer Relationship Specialty Start Date End Date Kuldip Cisneros MD [address] [place] [address] PCP - General Family Medicine 05/21/23 Kuldip Cisneros MD [address] [place] [address] PCP - [employer] 05/25/23 Rossana Alicia NP [address] [place] [address] Nurse Practitioner Family Medicine 05/21/23 Database Programmer Relationship Specialty Start Date End Date Kuldip Cisneros MD [address] [place] [address] PCP - General Family Medicine 05/21/23 Kuldip Cisneros MD [address] [place] [address] PCP - [employer] 05/25/23 Rossana Alicia NP [address] [place] [address] Nurse Practitioner Family Medicine 05/21/23 Database Programmer Relationship Specialty Start Date End Date Kuldip Cisneros MD [address] [place] [address] PCP - General Family Medicine 05/21/23 Kuldip Cisneros MD [address] [place] [address] PCP - [employer] 05/25/23 Rossana Alicia NP [address] [place] [address] Nurse Practitioner Family Medicine 05/21/23 Database Programmer Relationship Specialty Start Date End Date Kuldip Cisneros MD [address] [place] [address] PCP - General Family Medicine 05/21/23 Kuldip Cisneros MD [address] [place] [address] PCP - [employer] 05/25/23 Rossana Alicia NP [address] [place] [address] Nurse Practitioner Family Medicine 05/21/23 Database Programmer Relationship Specialty Start Date End Date Kuldip Cisneros MD [address] [place] [address] PCP - General Family Medicine 05/21/23 Kuldip Cisneros MD [address] [place] [address] PCP - [employer] 05/25/23 Rossana Alicia NP [address] [place] [address] Nurse Practitioner Family Medicine 05/21/23 Database Programmer Relationship Specialty Start Date End Date Kuldip Cisneros MD [address] [place] [address] PCP - General Family Medicine 05/21/23 Kuldip Cisneros MD [address] [place] [address] PCP - [employer] 05/25/23 Rossana Alicia NP [address] [place] [address] Nurse Practitioner Family Medicine 05/21/23 Database Programmer Relationship Specialty Start Date End Date Kuldip Cisneros MD [address] [place] [address] PCP - General Family Medicine 05/21/23 Kuldip Cisneros MD [address] [place] [address] PCP - [employer] 05/25/23 Rossana Alicia, AYDEE [address] [place] [address] Nurse Practitioner Family Medicine 05/21/23 Database Programmer Relationship Specialty Start Date End Date Kuldip Cisneros MD [address] [place] [address] PCP - General Family Medicine 05/21/23 Kuldip Cisneros MD [address] [place] [address] PCP - [employer] 05/25/23 Rossana Alicia NP [address] [place] [address] Nurse Practitioner Family Medicine 05/21/23 INFORMATION SOURCE (unrecogn ized section and content) DATE CREATED AUTHOR 06/01/2022 [facility] DATE CREATED AUTHOR AUTHOR'S ORGANIZ ATION 06/16/2022 [facility] DATE CREATED AUTHOR AUTHOR'S ORGANIZ ATION 09/02/2024 [facility] EPIC Reason for Visit (unrecogniz ed section and content) Reason Comments Med Refill Reason Comments Diabetes Reason Comments Foot Problem Jaye Beavers is a 68 y.o. female. Patient relates Left 5th toenail is sore and discolored. NKI, Patient noticed about 2 weeks ago. Difficult to trim. PCP: Rossana Matamoros 03/06/24, A1C: 9.1 BS: 143 Reason Comments Medicare Annual Wellness Visit Initial Reason Comments Sore Throat FOR RECORDS PERTAINING TO PATIENTS WHO ARE [...] BE BASED ON THE PRIMARY CLINICAL RECORDS. [employer] provides no warranty or guarantee of the accuracy or completeness of information in this document.
[2024-09-11 21:21] VITALS: BP 161/78; PULSE 85; TEMP 36.9; O2SAT 97; BMI 35.8
--- NOTE | 2024-09-11 21:36 | ED.GENADUL1 ---
HPI HPI - General Adult General Chief complaint: Skin/Abscess/Foreign Body Stated complaint: FEELS LIKE SOMETHING IS STUCK IN THROAT Time Seen by Provider: 09/11/24 21:36 Source: patient Mode of arrival: walk-in Limitations: no limitations History of Present Illness HPI narrative: The patient is a 69-year-old female with a history of asthma, hypertension and diabetes who presents to the emergency department for pain in her neck. She states that she feels like something stuck in her throat. She does not necessarily hurt to swallow but she feels discomfort as she is swallowing. She states is on her right side only. She does not recall anything getting stuck in her throat. She has not had anything with the bones in it or pills that may have gotten stuck in her throat. So she denies any pain. She has been able to eat and drink all day today without any difficulty. She states that she feels like she has doctrine her head to the right to swallow because she states it helps increase the pressure. She indicated that she had thyroid issues in the 1980s and since then has been on medication. She states other than that her allergies have been the only thing bothering her. 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 The symptoms today just started several hours ago. Related Data Home Medications ?Medication ?Instructions ?Recorded ?Confirmed albuterol sulfate 90 mcg/actuation 2 puff inhalation PRN sob 09/11/24 aerosol inhaler aspirin 81 mg tablet,delayed 81 mg PO DAILY 09/11/24 09/11/24 release dapagliflozin propanediol 10 mg 10 mg PO DAILY 09/11/24 09/11/24 tablet (Farxiga) fluticasone furoate 200 1 inh inhalation Q24H 09/11/24 09/11/24 mcg-vilanterol 25 mcg/dose inhalation powder (Breo Ellipta) hydrochlorothiazide 25 mg tablet 25 mg PO DAILY 09/11/24 09/11/24 metformin 500 mg tablet 500 mg PO BID 09/11/24 09/11/24 metoprolol tartrate 50 mg tablet 50 mg PO Q12H 09/11/24 09/11/24 omeprazole 20 mg capsule,delayed 20 mg PO DAILY 09/11/24 09/11/24 release tirzepatide 10 mg/0.5 mL mg subcut 09/11/24 subcutaneous pen injector (Wicho) Previous Rx's ?Medication ?Instructions ?Recorded levofloxacin 500 mg tablet 500 mg PO DAILY 21 days #21 tabs 09/12/24 Allergies Allergy/AdvReac Type Severity Reaction Status Date / Time cefaclor (From [facility]) Allergy Mild Hives Verified 09/11/24 21:26 Penicillins Allergy Mild Hives Verified 09/11/24 21:26 PNEUMONIA VACCINE Allergy Intermediate HIVES Uncoded 09/11/24 21:26 Review of Systems ROS Narrative 10 Systems were reviewed, and unless noted in the HPI, all other systems are reviewed, unremarkable, or noncontributory. [facility] Social History Little interest or pleasure in doing things: not at all Feeling down, depressed, or hopeless: not at all Exam Narrative Exam Narrative: Prior to examining the patient, I have washed with hospital approved and provided Antiseptic Hand [employer] Programs Director and have also applied gloves.? Prior to touching the patient, I asked for consent to examine the patient.? General: Alert and oriented, well nourished, mild distress. Eye: PERRL, EOMI, normal conjunctiva. HENT: Normocephalic, normal hearing, moist oral mucosa, no scleral icterus, no sinus tenderness. Neck: Supple, non-tender, no carotid bruits, no JVD, no lymphadenopathy. No palpable mass, no stridor. Lungs: Clear to auscultation and percussion, non-labored respiration. Heart: Normal rate, regular rhythm, no murmur, gallop or edema. Abdomen: Soft, non-tender, non-distended, normal bowel sounds, no masses. Musculoskeletal: Normal range of motion and strength, no tenderness or swelling. Skin: Skin is warm, dry and pink, no rashes or lesions. Neurologic: Awake, alert, and oriented X3, CN II-XII intact. Psychiatric: Cooperative, appropriate mood and affect.? Following the conclusion of the examination, I have washed my hands thoroughly after removing examination gloves. Constitutional Vital Signs, click to edit/add: Last Vital Signs Temp 98.4 F 09/11/24 21:21 Pulse 74 09/12/24 00:41 Resp 16 09/12/24 00:41 BP 148/82 H 09/12/24 00:41 Pulse Ox 97 09/12/24 00:41 O2 Del Method Room Air 09/12/24 00:41 Course Course Hospital Course: Patient was evaluated. Patient is going to have some blood work and have imaging of her neck to make sure that there is nothing obstructive in her throat or esophagus. She has never had a problem with swallowing in the past. No history of Schatzki's ring for her or her family. Vital Signs Vital signs: Vital Signs Temperature 98.4 F 09/11/24 21:21 Pulse Rate 85 09/11/24 21:21 Respiratory Rate 16 09/11/24 21:21 Blood Pressure 161/78 H 09/11/24 21:21 Pulse Oximetry 97 09/11/24 21:21 Oxygen Delivery Method Room Air 09/11/24 21:21 Temperature 98.4 F 09/11/24 21:21 Pulse Rate 74 09/12/24 00:41 Respiratory Rate 16 09/12/24 00:41 Blood Pressure 148/82 H 09/12/24 00:41 Pulse Oximetry 97 09/12/24 00:41 Oxygen Delivery Method Room Air 09/12/24 00:41 Medical Decision Making MDM Narrative Medical decision making narrative: Patient has foreign body sensation in her right neck. CT scan was performed. Lip blood work was performed. CBC revealed no evidence of anemia or leukocytosis. Basic metabolic panel was unremarkable for any electrolyte or kidney dysfunction. Patient did have CT scan of the soft tissue of neck with contrast and reveals that patient has a necrotizing lymph node. The patient states that she was sick with allergy type symptoms a couple weeks ago. However, I cannot say that this is not something more serious like HPV etc. so the patient needs to follow-up with her physician and perhaps get an ENT referral. In the interim were to start the patient on antibiotic therapy so at least an infectious etiology is ruled out before she sees her primary care physician or ENT. Differential Diagnosis Differential Diagnosis: Esophageal body, thyroid mass, lymphedema Medical Records Medical records reviewed: Yes I reviewed the patient's medical records Lab Data Lab results reviewed: Yes I reviewed the patient's lab results Labs: Lab Results 09/11/24 Range/Units 22:10 WBC 7.6 (4.0-11.0) 10^3/uL RBC 5.06 (4.20-5.40) 10^6/uL Hgb 14.5 (12.0-16.0) g/dL Hct 44.7 (36.0-48.0) % MCV 88.3 (81.0-99.0) fL MCH 28.7 (26.7-34.0) pg MCHC 32.4 (29.9-35.2) g/dL RDW 14.5 (11.0-15.0) % Plt Count 196 (150-450) 10^3/uL MPV 8.8 L (9.5-13.5) fL Neut % (Auto) 66.1 (43.0-75.0) % Lymph % (Auto) 25.2 (20.5-60.0) % Forest % (Auto) 6.8 (1.7-12.0) % Eos % (Auto) 1.1 (0.9-7.0) % Baso % (Auto) 0.5 (0.2-2.0) % Neut # (Auto) 5.0 (1.4-6.5) 10^3/uL Lymph # (Auto) 1.9 (1.2-3.8) 10^3/uL Forest # (Auto) 0.5 (0.3-0.8) 10^3/uL Eos # (Auto) 0.1 (0.0-0.7) 10^3/uL Baso # (Auto) 0.0 (0.0-0.1) 10^3/uL Abs Immat Gran (auto) 0.02 (0.00-0.03) 10^3/uL Imm/Tot Granulo (auto) 0.3 (0.0-0.5) % Sodium 141 (136-145) mmol/L Potassium 3.2 L (3.5-5.1) mmol/L Chloride 103 (98-107) mmol/L Carbon Dioxide 29.5 (21.0-32.0) mmol/L Anion Gap 11.7 BUN 16.0 (7.0-18.0) mg/dL Creatinine 0.79 (0.55-1.02) mg/dL Est GFR ( Amer) >60 (>=60 mL/min/1.73m^2) Est GFR (Non-Af Amer) >60 (>=60 mL/min/1.73m^2) BUN/Creatinine Ratio 20.3 Glucose 193 H (74-106) mg/dL Calcium 9.0 (8.5-10.1) mg/dL Imaging Data CT neck: Radiologist's impression: ITS Impressions Soft Tissue Neck CT 09/11/24 21:45 IMPRESSION: There is a hypoattenuating structure with average Hounsfield units of 13 in the right level 2B measuring 1.2 x 2.4 x 1.1 cm in greatest dimension. This is of uncertain etiology. A necrotic lymph node should be considered. Additional mildly prominent cervical lymph nodes are present which are not pathologically enlarged. Calcifications are noted in the right thyroid lobe. No abnormal radiopaque foreign body. Impression dictated by: Adan Lieberman M.D. 09/11/2024 11:28 PM Dictation Location: [place] [address] Electronically authenticated by: [id number] Y Date: 09/11/2024 23:28 Discharge Plan Discharge Chief Complaint: Skin/Abscess/Foreign Body Clinical Impression: Necrotizing inflammation of lymph node Patient Disposition: Home, Self-Care Time of Disposition Decision: 00:15 Condition: Good Mode of Transportation: Private Vehicle Prescriptions / Home Meds: New levofloxacin 500 mg tablet 500 mg PO DAILY 21 Days Qty: 21 0RF No Action albuterol sulfate 90 mcg/actuation HFA aerosol inhaler 2 puff INHALATION PRN (Reason: sob) aspirin 81 mg tablet,delayed release (DR/EC) 81 mg PO DAILY dapagliflozin propanediol [Farxiga] 10 mg tablet 10 mg PO DAILY fluticasone furoate-vilanterol [Breo Ellipta] 200-25 mcg/dose blister with device 1 inh INHALATION Q24H hydrochlorothiazide 25 mg tablet 25 mg PO DAILY metformin 500 mg tablet 500 mg PO BID metoprolol tartrate 50 mg tablet 50 mg PO Q12H omeprazole 20 mg capsule,delayed release(DR/EC) 20 mg PO DAILY Mounjaro 10 mg/0.5 mL pen injector SUBCUT Print Language: Hebrew Instructions: Lymphadenopathy (ED) Additional Instructions: Please make certain they follow-up with your doctor and ENT. This just needs to be very closely monitored. Referrals: Rossana Alicia NP [Primary Care Provider, [facility]] - 1 week Discharge Date/Time: 09/12/24 00:43
--- NOTE | 2024-09-11 21:45 | CT_ITS ---
[address] [address] Patient Name: JAYE PIRES MRN: [id number] date: 1955 Sex: F Assigned Patient Location: ED.MAIN Current Patient Location: ED.MAIN Accession/Order Number: [id number] Exam Date: 09/11/2024 23:19 Report Date: 09/11/2024 23:28 At the request of: TERESA BATISTA DO Procedure: CT soft tissue neck w con CT soft tissue neck w con 09/11/2024 11:06 PM SIGNS AND SYMPTOMS: right sided neck discomfort, painful to swallow CONTRAST: 100 mL of intravenous Omnipaque 300 TECHNIQUE: Multidetector CT axial slices of the soft tissues of the neck were obtained with IV contrast. Sagittal and coronal reformats were reconstructed. CT was performed with one or more of the following dose reduction techniques: Automated exposure control, adjustment of the mA and/or kV according to patient size, or use of iterative reconstruction technique. COMPARISON: None FINDINGS: Soft tissues of the orbits are within normal limits. The soft tissues of the infratemporal fossa fossa structures show no acute abnormality. Mucosal surfaces of the nasopharynx, oropharynx, hypopharynx, glottic, and subglottic airways are grossly unremarkable. There is a hypoattenuating structure with average Hounsfield units of 13 in the right level 2B measuring 1.2 x 2.4 x 1.1 cm in greatest dimension. This is of uncertain etiology. A necrotic lymph node should be considered. Additional mildly prominent cervical lymph nodes are present which are not pathologically enlarged. The parotid glands and submandibular glands are within normal limits. Calcifications are noted in the right thyroid lobe. The carotid and jugular circulations are within normal limits. The visualized lung parenchyma shows no acute pathology. No acute bony abnormalities are appreciated. Degenerative changes are noted in the cervical spine. The skull base, craniocervical junction, atlantoaxial joints are within normal limits. The paranasal sinuses are within normal limits. CT/CT soft tissue neck w con IMPRESSION: There is a hypoattenuating structure with average Hounsfield units of 13 in the right level 2B measuring 1.2 x 2.4 x 1.1 cm in greatest dimension. This is of uncertain etiology. A necrotic lymph node should be considered. Additional mildly prominent cervical lymph nodes are present which are not pathologically enlarged. Calcifications are noted in the right thyroid lobe. No abnormal radiopaque foreign body. Impression dictated by: Adan Lieberman M.D. 09/11/2024 11:28 PM Dictation Location: [place] [address] Electronically authenticated by: [id number] Y Date: 09/11/2024 23:28
[2024-09-11 22:18] LABS: Basophils Percent Auto 0.5 % (0.2-2.0); Eosinophils Absolute Auto 0.1 10^3/uL (0.0-0.7); Eosinophils Percent Auto 1.1 % (0.9-7.0); Hematocrit 44.7 % (36.0-48.0); Hemoglobin 14.5 g/dL (12.0-16.0); Immature Granulocytes Abs Auto 0.02 10^3/uL (0.00-0.03); Immature Granulocytes Pct Auto 0.3 % (0.0-0.5); Lymphocytes Absolute Auto 1.9 10^3/uL (1.2-3.8); Lymphocytes Percent Auto 25.2 % (20.5-60.0); Mean Corpuscular HGB Conc 32.4 g/dL (29.9-35.2); Mean Corpuscular Hemoglobin 28.7 pg (26.7-34.0); Mean Corpuscular Volume 88.3 fL (81.0-99.0); Mean Platelet Volume 8.8 fL (9.5-13.5); Monocytes Absolute Auto 0.5 10^3/uL (0.3-0.8); Monocytes Percent Auto 6.8 % (1.7-12.0); Neutrophils Percent Auto 66.1 % (43.0-75.0); Platelet Count 196 10^3/uL (150-450); Red Blood Count 5.06 10^6/uL (4.20-5.40); Red Cell Distribution Width 14.5 % (11.0-15.0); White Blood Count 7.6 10^3/uL (4.0-11.0)
[2024-09-11 22:27] LABS: Anion Gap 11.7; BUN Creatinine Ratio 20.3; Carbon Dioxide 29.5 mmol/L (21.0-32.0); Chloride 103 mmol/L (98-107); Estimated GFR (African America >60 (>=60 mL/min/1.73m^2); Estimated GFR (Non-African Ame >60 (>=60 mL/min/1.73m^2); Glucose 193 mg/dL (74-106); Potassium 3.2 mmol/L (3.5-5.1); Sodium 141 mmol/L (136-145)
[2024-09-12 00:41] VITALS: BP 148/82; PULSE 74; O2SAT 97
== END 2024-09-12 00:43 | disposition home or self-care (01) ==
PROVIDERS: Emergency Provider Emergency Medicine; PCP Nurse Practitioner
DX: I88.8 Other nonspecific lymphadenitis (principal)
CPT/HCPCS: 36415; 70491; 80048; 85025; 99285; Q9967

== ENCOUNTER 2024-10-01 10:55 | Outpatient (OUT) | payer MEDICARE, SELFPAY ==
--- NOTE | 2024-10-01 10:57 | US_ITS ---
The [address] [address] Patient Name: JAYE PIRES MRN: [id number] date: 1955 Sex: F Assigned Patient Location: US Current Patient Location: US Accession/Order Number: [id number] Exam Date: 10/01/2024 15:01 Report Date: 10/01/2024 15:06 At the request of: BEVERLEY SIEGEL MD Procedure: US soft tissue head and neck Ultrasound of neck mass Neck mass. Right posterior neck region was scanned. FINDINGS: Anechoic tubular structure identified in region of palpable concern. No color flow identified within this area. At the end of the tubular structure there is a lymph node identified. Normal size and morphology and vascularity. The lymph node measures 9 x 9 x 9 mm. US/US soft tissue head and neck IMPRESSION: Anechoic tubular structure of uncertain significance. There is represent benign finding. Nonenlarged abnormal morphology associated lymph node. May represent reactive node. Likely represents an overall benign finding. May consider further assessment with CT of the neck. Alternatively follow-up imaging in 3-6 months may be obtained. Impression dictated by: Ceasar Luis M.D. 10/01/2024 3:06 PM Dictation Location: [place] [address] Electronically authenticated by: [id number] Y Date: 10/01/2024 15:06
== END 2024-10-01 10:56 | disposition home or self-care (01) ==
LOC: US 10:55
PROVIDERS: PCP Nurse Practitioner; Visit Provider Otolaryngology
DX: R22.1 Localized swelling, mass and lump, neck (principal)
CPT/HCPCS: 76536

== ENCOUNTER 2025-01-30 12:05 | Outpatient (OUT) | payer MEDICARE, SELFPAY ==
--- OUTSIDE RECORDS SUMMARY | 2025-01-30 12:09 | XMS_ITS | Encounter Summary ---
Author Organization [facility] Address [address] [place] [address] Care Team Providers Care Agronomy Professor Name Role Phone Kuldip Cisneros MD Primary Care Provider [phone] Rossana Alicia NP Unavailable [phone] Kuldip Cisneros MD Unavailable Encounter Details DateTypeDepartmentCare Team (Latest Contact Info)Grmarcoswjv26/05/2024Clinisync Result Encounter [facility] Unsolicited Rossana Alicia, AYDEE [address] [facility] [place] [id number] Social History Tobacco UseTypesPacks/DayYears UsedDateSmoking Tobacco: FormerCigarettesQuit: 1994Smokeless Tobacco: NeverAlcohol UseStandard Drinks/WeekCommentsNot Currently 0 (1 standard drink = 0.6 oz pure alcohol)Humiliation, Afraid, Rape, and Kick questionnaireAnswerDate RecordedWithin the last year, have you been afraid of your partner or ex-partner?No04/09/2023Within the last year, have you been humiliated or emotionally abused in other ways by your partner or ex-partner?No 04/09/2023Within the last year, have you been kicked, hit, slapped, or otherwise physically hurt by your partner or ex-partner?No04/09/2023Within the last year, have you been raped or forced to have any kind of sexual activity by your part ner or ex-partner?No04/09/2023Social Connection and Isolation PanelAnswerDate RecordedIn a typical week, how many times do you talk on the phone with family, friends, or neighbors?More than three times a week04/09/2023How often do you get together with friends or relatives?Once a week04/09/2023How often do you attend jain or synagogue services?More than 4 times per year04/09/2023o you belong to any clubs or organizations such as jain groups, unions, fraternal or athletic groups, or school groups?Yes04/09/2023How often do you attend meetings of the clubs or organizations you belong to?More than 4 times per year04/09/2023 Are you , , , , never , or living with a partner?Never hxfdbkm0704/09/2023UDIT-CAnswerDate RecordedQ1: How often do you have a drink containing alcohol?Never04/09/2023Q2: How many drinks containing alcohol do you have on a typical day when you are drinking?Patient does not drink04/09/2023Q3: How often do you have six or more drinks on one occasion? Never04/09/2023Overall Financial Resource Strain (CARDIA)AnswerDate RecordedHow hard is it for you to pay for the very basics like food, housing, medical care, and heating?Very hard04/10/2023HQ-2AnswerDate RecordedPatient Health Questionnaire-2 [id number] [place] [facility] Occup[facility] - Occupational Stress QuestionnaireAnswerDate RecordedDo you feel stress - tense, restless, nervous, or anxious, or unable to sleep at night because yourmind is troubled all the time - these days?To some vddrqc2804/09/2023Exercise Vital Sign AnswerDate RecordedOn average, how many days per week do you engage in moderate to strenuous exercise (like a brisk walk)?0 days04/09/2023On average, how many minutes do you engage in exercise at this level?0 min04/09/2023Hunger Vital Sign AnswerDate RecordedWithin the past 12 months, you worried that your food would run out before you got the money to buymore.Never true04/09/2023Within the past 12 months, the food you bought just didn't last and you didn't have money to get more.Never true04/09/2023RAPARE - TransportationAnswerDate RecordedIn the past 12 months, has lack of transportation kept you from medical appointments or from getting medications?No04/09/2023In the past 12 months, has lack of transportation kept you from meetings, work, or from getting things needed for daily living?No04/09/2023Housing Stability Vital SignAnswerDate RecordedIn the last 12 months, was there a time when you were not able to pay the mortgage or rent on time?No04/09/2023In the last 12 months, how many places have you lived?1 04/09/2023In the last 12 months, was there a time when you did not have a steady place to sleep or slept in ashelter (including now)?No04/09/2023Comments UnknownSex and Gender InformationValueDate RecordedSex Assigned at BirthNot on fileLegal CpwRexopz98/15/2023 7:00 PM EDTGender IdentityNot on fileSexual OrientationNot on filedocumented as of this encounter Functional Status * Over the past 2 weeks, how often have you been bothered by any of the following problems?QuestionAnswerDate of AssessmentAuthorLittle interest or pleasure in doing thingsNot at all06/12/2024 9:52 AM Irene Betts MA Feeling down, depressed, or hopelessNot at all06/12/2024 9:52 AM Irene Betts MAPatient Health Questionnaire-2 [id number] 9:52 AM EDT Irene Kitchen MA * QuestionAnswerDate of AssessmentAuthorTrouble falling or staying asleep, or sleeping too muchSeveral days06/12/2024 9:52 AM Irene Betts MA Feeling tired or having little energySeveral days06/12/2024 9:52 AM Irene Melgar MAPoor appetite or overeatingNot at all06/12/2024 9:52 AM Irene Betts MAFeeling bad about yourself - or that you are a failure or have let yourself or your family downNot at all06/12/2024 9:52 AM Irene Betts MATrouble concentrating on things, such as reading the newspaper or watching televisionNot at all06/12/2024 9:52 AM Irene Betts, MAMoving or speaking so slowly that other people could have noticed? Or the opposite - being so fidgety or restless that you have been moving around a lot more than usual.Not at all06/12/2024 9:52 AM Irene Betts MAThoughts that you would be better off or hurting yourself in some wayNot at all06/12/2024 9:52 AM Irene Betts MAPatient Health Questionnaire-9 [id number] 9:52 AM Irene Betts MA * How difficult have these problems made it for you to do your work, take care of things at home, or get along with other people?AnswerDate of Assessment AuthorNot difficult at 06/12/2024 9:52 AM Irene Betts MA documented as of this encounter Plan of Treatment DateTypeDepartmentCare Team (Latest Contact Info)Ucdzfvyrjbr24/19/2025 11:10 AM ESTOffice Visit [facility] [address] [facility] [address] [place] [address] Birgit Singleton MD [address] [facility] [address] [place] [address] documented as of this encounter Procedures Procedure NamePriorityDate/TimeAssociated DiagnosisCommentsMM TOMOSYNTHESIS SCREENING BI06/29/2023 2:32 PM EDT documented in this encounter Results * MM TOMOSYNTHESIS SCREENING BI (06/29/2023 2:32 PM EDT)Anatomical Region LateralityModalityOtherSpecimen (Source)Anatomical Location / Laterality Collection Method / VolumeCollection TimeReceived Time04/07/2023 2:32 PM EDT Narrative 06/29/2023 2:33 PM EDT [facility] ?[address] ? [place] [address] ? Mammography Report ? Signed ? Patient: HACKENBURG,JAYE A ?MR#: [id number] ?? : 1955 ?Acct:[id number] ?? Age/Sex: 68 / F ?ADM Date: 06/29/23 ?? Loc: MAMMO ? Attending Dr: Rossana Alicia TRACK SUPERVISOR ? Ordering Physician: Rossana Alicia NP ?Results: ? Date of Service: 06/29/23 ?Follow Up: ? Procedure(s): MM tomosynthesis screening BI ?? Accession Number(s): [id number] ? cc: Rossana Alicia NP ? Patient Name: ? [facility] ? MR#: [id number] ? : 1955 ? Exam Date: 06/29/2023 ?? Ordering Doctor: RON Alicia CNP ? RADIOLOGY REPORT ? PROCEDURE: ? MM TOMOSYNTHESIS SCREENING BI ? COMPARISON: ? MG MAMM SCREEN 3D JOSE CAD, 06/07/2022. ??MG MAMM SCREEN 3D JOSE ?? CAD, 05/31/2021. ? INDICATIONS: ? screening ? Calculator Name ? NCI Breast Cancer Risk Assessment Tool ?? 5 Year Breast Cancer Risk ? 5.90% ?? Lifetime Breast Cancer Risk ? 18.00% ?? Personal Breast Cancer ?No ?? Personal Ovarian Cancer ? No ?? Treatments ? None ?? Family Cancers ? Sister with breast cancer at age 65; Mother with breast ?? cancer at age 60; Brother with bladder cancer at age 63; Brother with skin ?? cancer at age ??50; Father with skin cancer at age ??60. ? LOCATION: ? [facility] ? BREAST COMPOSITION: ? Scattered areas fibroglandular density. ? FINDINGS: ? DIAGNOSTIC CATEGORY 1--NEGATIVE. ? RIGHT BREAST: ??No significant suspicious finding. ??No significant change has ?? occurred. ? LEFT BREAST: ??No significant suspicious finding. ??No significant change has ?? occurred. ? RECOMMENDATIONS: ? ROUTINE MAMMOGRAM AND CLINICAL EVALUATION IN 12 MONTHS. ? PLEASE NOTE: ??A NORMAL MAMMOGRAM DOES NOT EXCLUDE THE POSSIBILITY OF BREAST ?? CANCER. ??A CLINICALLY SUSPICIOUS PALPABLE LUMP SHOULD BE BIOPSIED. ? Dictated by: Misha Nixon M.D. on 06/29/2023 at 14:29 ? Approved by: Misha Nixon M.D. on 06/29/2023 at 14:32 ? Dictated By: ?Misha Nixon M.D. ? Signed By: ?06/29/23 1433 ? DD/ 1432 ? TD/TT: ? [employer] [place] Observer: Procedure Note Radiology, Radiologist, MD - 06/29/2023 [place] [address] Mammography Report Signed Patient: JAYE BEAVERS AMR#: [id number] : 6Acct:[id number] Age/Sex: 68 / FADM Date: 06/29/23 Loc: MAMMO Attending Dr: Rossana Alicia NP Ordering Physician: Rossana Aliciaesults: Date of Service: 06/29/23Follow Up: Procedure(s): MM tomosynthesis screening BI Accession Number(s): [id number] cc: Rossana Alicia NP Patient Name: JAYE BEAVERS MR#: [id number] : 1955 Exam Date: 06/29/2023 Ordering Doctor: RON Alicia CNP RADIOLOGY REPORT PROCEDURE: MM TOMOSYNTHESIS SCREENING BI COMPARISON: MG MAMM SCREEN 3D JOSE CAD, 06/07/2022. MG MAMM SCREEN 3DBIL CAD, 05/31/2021. INDICATIONS: screening Calculator Name NCI Breast Cancer Risk Assessment Tool 5 Year Breast Cancer Risk 5.90% Lifetime Breast Cancer Risk 18.00% Personal Breast Cancer No Personal Ovarian Cancer No Treatments None Family Cancers Sister with breast cancer at age 65; Mother with breast cancer at age 60; Brother with bladder cancer at age 63; Brother with skin cancer at age 50; Father with skin cancer at age 60. LOCATION: [facility] BREAST COMPOSITION: Scattered areas fibroglandular density. FINDINGS: DIAGNOSTIC CATEGORY 1--NEGATIVE. RIGHT BREAST: No significant suspicious finding. No significant changehas occurred. LEFT BREAST: No significant suspicious finding. No significant changehas occurred. RECOMMENDATIONS: ROUTINE MAMMOGRAM AND CLINICAL EVALUATION IN 12 MONTHS. PLEASE NOTE: A NORMAL MAMMOGRAM DOES NOT EXCLUDE THE POSSIBILITY OFBREAST CANCER. A CLINICALLY SUSPICIOUS PALPABLE LUMP SHOULD BE BIOPSIED. Dictated by: Misha Nixon M.D. on 06/29/2023 at 14:29 Approved by: Misha Nixon M.D. on 06/29/2023 at 14:32 Dictated By: Misha Nixon M.D. Signed By:06/29/23 1433 DD/ 31 TD/TT: [employer] [place] Observer: Authorizing ProviderResult TypeResult StatusLisa Alicia NPCLINISYNC IMAGING Final Result documented in this encounter Visit Diagnoses Not on filedocumented in this encounter Additional Health Concerns AssessmentNoted TimePHQ-9 Depression Total Score: 11:04 AM EST documented as of this encounter Care Teams Team MemberRelationshipSpecialtyStart DateEnd Date Kuldip Cisneros MD PCP - GeneralFamily Medicine05/21/23 Kuldip Cisneros MD [address] [place] [address] PCP - [employer]05/25/23 Rossana Alicia NP Nurse PractitionerFamily Medicine05/21/23documented as of this encounter
--- OUTSIDE RECORDS SUMMARY | 2025-01-30 12:09 | XMS_ITS | Clinical Summary ---
Author Organization [facility] Address [address] [place] [address] Care Team Providers Care [employer] Salesperson Name Role Phone Kuldip Cisneros MD Primary Care Provider [phone] Rossana Alicia NP Unavailable [phone] Kuldip Cisneros MD Unavailable Allergies Active AllergyReactionsCriticalityNoted DateCommentsCefaclorHives,Shortness of uvmrdhJbed69/09/2019PenicillinsHives,Shortness of aclipuBiwb39/09/2023 Pneumococcal Poly Diphth Conj Vac 13-ValHives,Shortness of qvjzsyYixx87/06/2025 Pneumococcal VaccineHives,Shortness of dxrnisHlrl48/09/2023 Patient stated allergy to pneumonia vaccine Pneumovax 23 Medications MedicationSigDispense QuantityRefillsLast FilledStart DateEnd DateStatus albuterol HFA 90 mcg/act inhaler Indications:Moderate persistent asthma without complication (HCC)Inhale 2 puffs every 6 (six) hours if needed for wheezing or shortness of breath 17 g 410/4Active Nystop 539606 UNIT/GM powder 5Active glucose blood (FREESTYLE LITE) test strip Indications:Type 2 diabetes mellitus without complication, without long-term current use of insulin (HCC)Daily 1 each by In Vitro route Daily 50 each 1105Active amLODIPine (Norvasc) 2.5 MG tablet Indications:Primary hypertensionTake 1 tablet (2.5 mg) by mouth Daily Take by mouth Daily. 90 tablet 5Active tnkcdmgj-ylmnivplu-tyzASYYFgdnpl (Maxitrol) 0.1 % ophthalmic suspension INSTILL 1 DROP INTO BOTH EYES FOUR TIMES DAILY FOR 5 DAYS5Active Aspirin Low Dose 81 MG EC tablet 09/11/2024tive atorvastatin (Lipitor) 80 MG tablet Indications:Type 2 diabetes mellitus without complication, without long-term current use of insulin ([facility]),Mixed hyperlipidemiaTake 1 tablet (80 mg) by mouth in the evening 90 tablet tive cetirizine (ZyrTEC) 10 MG tablet Indications:Environmental and seasonal allergiesTake 1 tablet (10 mg) by mouth Daily 90 tablet 5Active dapagliflozin (Farxiga) 10 MG Indications:Type 2 diabetes mellitus without complication, without long-term current use of insulin ([facility])Take 1 tablet (10 mg) by mouth Daily 90 tablet tive Fluticasone Furoate-Vilanterol (Breo Ellipta) 200-25 MCG/ACT aerosol powder Indications:Moderate persistent asthma without complication ([facility])Inhale 1 puff Daily Rinse mouth after use 3 each tive hydroCHLOROthiazide (HYDRODiuril) 25 MG tablet Indications:Primary hypertensionTake 1 tablet (25 mg) by mouth Daily 90 tablet tive metFORMIN (Glucophage) 500 MG tablet Indications:Type 2 diabetes mellitus without complication, without long-term current use of insulin ([facility])Take 1 tablet (500 mg) by mouth in the morning and 1 tablet (500 mg) in the evening. Take with meals. 180 tablet 5Active metoprolol tartrate (Lopressor) 50 MG tablet Indications:Primary hypertensionTake 1 tablet (50 mg) by mouth in the morning and 1 tablet (50 mg) before bedtime. 180 tablet 5Active omeprazole (PriLOSEC) [address] capsule Indications:Gastroesophageal reflux disease, unspecified whether esophagitis presentTake 1 capsule (20 mg) by mouth in the morning. Take before meals. 90 capsule 5Active Active Problems ProblemNoted DateDiagnosed DateEnlarged lymph node in neck09/18/2024 Assessment & Plan (10/06/2024 10:40 AM EDT): Continue with ENT Morbid (severe) obesity due to excess ocucdrdl28/20/2025 Assessment & Plan (10/06/2024 6:33 AM EDT): Discussed with patient their BMI (actual, verses recommended). We have also discussed lifestyle modifications: attempts to perform physical activity as chronic conditions allow, also to monitor dietary intake: increasing protein/fruits/veggies and lowering carb intake (unless contraindicated). Limit sodas, juices, and sugary drinks. Is taking mounjaro Assessment & Plan (09/01/2024 1:31 PM EDT): Discussed with patient their BMI (actual, verses recommended). We have also discussed lifestyle modifications: attempts to perform physical activity as chronic conditions allow, also to monitor dietary intake: increasing protein/fruits/veggies and lowering carb intake (unless contraindicated). Limit sodas, juices, and sugary drinks. Is taking mounjaro Assessment & Plan (06/12/2024 10:11 AM EDT): Discussed with patient their BMI (actual, verses recommended). We have also discussed lifestyle modifications: attempts to perform physical activity as chronic conditions allow, also to monitor dietary intake: increasing protein/fruits/veggies and lowering carb intake (unless contraindicated). Limit sodas, juices, and sugary drinks. Is taking mounjaro 20 pounds loss over last 12 months Other vhhahmfjf21/20/2025 Assessment & Plan (06/12/2024 6:23 AM EDT): Current meds: breo inhaler and albuterol Xlpqgkeaoqpi35/12/2024 Assessment & Plan (03/06/2024 10:56 AM EST): Does have times where she is not sure what her blood sugar is doing, feels dizziness, hunger and shaky feeling Will see if insurance covers CGM Needs flu shot03/06/2024Type 2 diabetes mellitus with diabetic peripheral angiopathy without wpyhfqfm51/08/2024 Assessment & Plan (06/12/2024 6:23 AM EDT): Cont statin, asa and risk factor modification Assessment & Plan (12/05/2023 7:27 AM EDT): >>ASSESSMENT AND PLAN FOR PERIPHERAL VASCULAR DISEASE, UNSPECIFIED (CMS/HCC) WRITTEN ON 10/01/2023 1:45 PM BY ROSSANA ALICIA NP Stable at this time Assessment & Plan (12/05/2023 7:26 AM EDT): Cont statin, asa and risk factor modification Candidiasis of skin07/03/2023Sleep apnea04/10/2023 Assessment & Plan (10/06/2024 6:32 AM EDT): You have a diagnosis of obstructive sleep [...] Doctor that manages your MERRILL: no body Assessment & Plan (06/12/2024 10:37 AM EDT): You have a diagnosis of obstructive sleep [...] Doctor that manages your MERRILL: no body Assessment & Plan (03/06/2024 10:54 AM EST): CPAP use: 6-7 hours per night Tolerates well Assessment & Plan (04/10/2023 12:00 PM EST): stable Encounter for screening mammogram for malignant neoplasm of hdioxa2504/10/2023MI 40.0-44.9, adult04/10/2023Encounter for annual wellness visit (AWV) in Medicare ypedofm1404/10/2023 Assessment & Plan (06/12/2024 6:25 AM EDT): Reviewed Ht/Wt/BMI Recommend eye exam yearly Recommend dental exams twice a year Balance work/leisure activities Exercises is recommended most days of the week (appropriate as chronic conditions allow) Follow up yearly and prn Assessment & Plan (04/10/2023 12:04 PM EST): Reviewed Ht/Wt/BMI Recommend eye exam yearly Recommend dental exams twice a year Balance work/leisure activities Exercises is recommended most days of the week (appropriate as chronic conditions allow) Follow up yearly and prn Current mild episode of major depressive disorder without prior episode 04/10/2023 Assessment & Plan (06/12/2024 10:15 AM EDT): Not currently prescribed any medications, per pt's wishes RAMY 7=0 PHQ 9=2 Assessment & Plan (03/06/2024 6:57 AM EST): Patient has requested not to take medications during previous appointments Assessment & Plan (05/21/2023 2:12 PM EST): Did not start taking sertraline, d/t side effects did not feel comfortable trying Encourage pt to do deep breathing, meditation, pray to see if help At this point no meds per pt request Assessment & Plan (04/10/2023 12:02 PM EST): Start sertraline at 50mg Take medication only as directed. This medication will take approximately 4-6 weeks to become effective. If any suicidal thoughts, thoughts of hurting others, or hallucinations contact the office or proceed to the Emergency Room for mental health evaluation. Medication may cause dry mouth, dizziness, and in some cases worsening in depression symptoms. Please contact the office if these occur. Moderate asthma without ngvbwiztvivh38/04/2023 Assessment & Plan (06/12/2024 6:23 AM EDT): Current meds: breo and albuterol Use of rescue inhaler: Assessment & Plan (03/06/2024 6:53 AM EST): Current meds: breo and albuterol Assessment & Plan (12/05/2023 4:13 PM EDT): Stable on current meds Assessment & Plan (07/05/2023 11:52 AM EDT): No changes Assessment & Plan (04/10/2023 12:01 PM EST): stable Assessment & Plan (02/26/2023 10:27 AM EST): Stable continue current meds No changes Type 2 diabetes mellitus without complication, without long-term current use of oqsohnx6702/26/2023 Assessment & Plan (10/06/2024 10:07 AM EDT): Check blood sugars daily, notify if <70 or >200. Take medications (pills or insulin) as directed. Monitor for s/s of hypoglycemia (sweaty, dizziness, nausea, vomiting, or shakiness). Watch for increase in thirst, urination, or appetite. Inspect feet frequently monitoring for open wounds , andalso recommend yearly eye exam. Pt should attempt to remain as physically active as chronic conditions allow, as well as trying to follow a diet low in carbohydrates, and simple sugars. Current meds: asa, statin, farxiga, metformin, mounjaro A1c: 7.4% 10/06/24, 7.6% on 06/21/24, 9.2% on 03/18/24 Assessment & Plan (06/12/2024 6:27 AM EDT): Check blood sugars daily, notify if <70 or >200. Take medications (pills or insulin) as directed. Monitor for s/s of hypoglycemia (sweaty, dizziness, nausea, vomiting, or shakiness). Watch for increase in thirst, urination, or appetite. Inspect feet frequently monitoring for open wounds , andalso recommend yearly eye exam. Pt should attempt to remain as physically active as chronic conditions allow, as well as trying to follow a diet low in carbohydrates, and simple sugars. Current meds: asa, statin, farxiga, metformin, mounjaro A1c: 9.2% on 03/18/24 Assessment & Plan (03/06/2024 11:22 AM EST): Check blood sugars daily, notify if <70 or >200. Take medications (pills or insulin) as directed. Monitor for s/s of hypoglycemia (sweaty, dizziness, nausea, vomiting, or shakiness). Watch for increase in thirst, urination, or appetite. Inspect feet frequently monitoring for open wounds , andalso recommend yearly eye exam. Pt should attempt [...] than 200 over the last few weeks. I have reviewed her results that are scanned into chart. She does have some times where she [...] Hoping for CGM will send in script Assessment & Plan (12/05/2023 4:14 PM EDT): Is continuing to demonstrate weight loss, slow sugar response Discontinue valerie, will trial mounjaro at 2.5mg, #1 sample given lot [id number], exp 03/06/24 After 3 weeks will let me know if helping then will order 5mg Also needed a sample of farxiga 10mg until mail order came in, sample recorded and given Assessment & Plan (10/01/2023 1:42 PM EDT): Is continuing to demonstrate weight loss, slow sugar response Will try to change dose to noon time Fu in 3 months Assessment & Plan (08/16/2023 10:40 AM EDT): She is trying to cut back carbs, make better food choices, no evening snacks, increase activity, has lost 5 pounds since last visit Continue to take blood sugars daily and record Will continue farxiga at 10mg Samples of 5mg given to take 2 daily Lot: [id number] exp 07/23/25 #2 samples, [id number] epx 07/23/25 #1 sample, and [id number], exp 07/23/25 #3 samples Rybelsus 3mg [id number] exp 05/2024 1 pill daily. Stop trulicity script Assessment & Plan (07/05/2023 11:54 AM EDT): She is trying to cut back carbs, make better food choices, no evening snacks, increase activity Continue to take blood sugars daily and record Will trial of farxiga 5mg, samples X3 given [id number], exp 07/23/25 Fu in 6 weeks Assessment & Plan (05/21/2023 2:09 PM EST): Is reluctant to start a new medication if she doesn't have too We reviewed her A1c She is trying to cut back carbs, make better food choices, no evening snacks, increase activity She is encouraged to take blood sugars daily and record Fu in 6 weeks , if not a lot of improvement at that time consider trial of farxiga Assessment & Plan (04/10/2023 12:02 PM EST): Check A1c, go back to checking daily and recording and bring to office Will increase metfromin to 500 am and 1000mg pm Check blood sugars daily, notify if <70 or >200. Take medications (pills or insulin) as directed. Monitor for s/s of hypoglycemia (sweaty, dizziness, nausea, vomiting, or shakiness). Watch for increase in thirst, urination, or appetite. Inspect feet frequently monitoring for open wounds , andalso recommend yearly eye exam. Pt should attempt to remain as physically active as chronic conditions allow, as well as trying to follow a diet low in carbohydrates, and simple sugars. Assessment & Plan (02/26/2023 10:42 AM EST): Recommend weight loss, check sugars daily, limit carbs Yearly eye exams and freq foot checks A1c is 8.5% Essential (primary) fdxkyxumaxbj05/04/2023 Assessment & Plan (10/06/2024 6:32 AM EDT): Please check blood pressure daily and record DASH diet Limit caffeine Take medication as directed Contact office if chest pain, pressure, dizziness, shortness of breath, swelling legs Recommend slow position changes Current meds: amlodipine, hydrochlorothiazide, metoprolol Assessment & Plan (06/12/2024 6:23 AM EDT): Please check blood pressure daily and record DASH diet Limit caffeine Take medication as directed Contact office if chest pain, pressure, dizziness, shortness of breath, swelling legs Recommend slow position changes Current meds: amlodipine, hydrochlorothiazide, metoprolol Assessment & Plan (03/06/2024 6:54 AM EST): Please check blood pressure daily and record DASH diet Limit caffeine Take medication as directed Contact office if chest pain, pressure, dizziness, shortness of breath, swelling legs Recommend slow position changes Current meds: amlodipine, hydrochlorothiazide, metoprolol Assessment & Plan (12/05/2023 4:13 PM EDT): At goal Environmental and seasonal idtenknbd25/04/2023 Assessment & Plan (09/01/2024 1:29 PM EDT): Add allergy nasal steroid, as well as allergy eye drops Medrol dose pack, sugars have been less than 180 Fu if not better, quit her polym. B eye drops Assessment & Plan (03/06/2024 10:59 AM EST): Takes allergy pill, does not like nasal steroids Assessment & Plan (09/12/2023 12:46 PM EDT): Cont allergy meds Mixed lhfmzscztmcxra18/04/2023 Assessment & Plan (03/06/2024 6:57 AM EST): On statin therapy Check labs yearly and prn Resolved Problems ProblemNoted DateDiagnosed DateResolved DateChronic sinusitis of both maxillary ytjvpuh70/ Assessment & Plan (10/01/2023 1:44 PM EDT): Recommend CT , failed atbs, prednisone, and nasal steroid Acute non-recurrent frontal fwaxbbdke10 Assessment & Plan (09/12/2023 12:46 PM EDT): Likely secondary to allergies, and right OM related to the sinus -blowing green nasal out of right nostril only, multiple atb allergies, zithromax often times requires second dosing Will treat sinus infection w doxy bid for 10 days Fu if not better Non-recurrent acute suppurative otitis media of right ear without spontaneous rupture of tympanic lylwlydf36 Assessment & Plan (09/12/2023 12:47 PM EDT): Atb, cont allergy meds as well Fu if not better Body mass index (BMI) 36.0-36.9, adult Assessment & Plan (03/06/2024 10:56 AM EST): Discussed with patient their BMI (actual, verses recommended). We have also discussed lifestyle modifications: attempts to perform physical activity as chronic conditions allow, also to monitor dietary intake: increasing protein/fruits/veggies and lowering carb intake (unless contraindicated). Limit sodas, juices, and sugary drinks. Has been able to slowly bring down weight, continue with currenttherapies Has lost 13 pounds since 07/17 Emphysema lung Assessment & Plan (03/06/2024 6:52 AM EST): Current meds; albuterol prn, breo daily Assessment & Plan (04/10/2023 12:00 PM EST): Stable no med changes Primary bflkcslfuctg94/04/202309/01/2024 Assessment & Plan (07/05/2023 11:53 AM EDT): Not at goal, but am adding farxiga will see if this helps Assessment & Plan (05/21/2023 2:10 PM EST): Stressors likely affecting her blood pressure Will re assess at fu appt Assessment & Plan (04/10/2023 12:01 PM EST): No med dose changes Assessment & Plan (02/26/2023 10:30 AM EST): Continue current meds Fu in 3 months Class 3 severe obesity due to excess calories with serious comorbidity in adult / Assessment & Plan (02/26/2023 10:31 AM EST): Recommend weight loss and activity as chronic conditions allow Immunizations ImmunizationAdministration DatesNext DueInfluenza, Seasonal, Quadrivalent, Kptxzdjyou73/21/2021Influenza, trivalent, lsqwigszik49/12/2024Pfizer Quinonez Cap SARS-CoV-2 Zwhdllrpfny47/26/2022Pfizer Purple Cap SARS-CoV-2 Vaccination 01/10/2021,06/18/2020,05/29/2020 Family History Medical HistoryRelationNameCommentsCOPDBrotherRichardDiabetesBrotherRichardCOPD FatherDonaldDiabetesFatherDonaldHyperlipidemiaFatherDonaldHypertensionFather DonaldSkin cancerFatherDonaldbladder cancerFatherDonaldBreast cancerMotherBarb CancerMotherBarbHearing lossMotherBarbLeukemiaMotherBarbOvarian cancerOther Family historyCancerSisterSusanRelationNameStatusCommentsBrotherRichardAlive FatherDonaldDeceasedMotherBarbAliveOtherFamily historySisterSusanAlive Social History Tobacco UseTypesPacks/DayYears UsedDateSmoking Tobacco: FormerCigarettesQuit: 1994Passive Smoke Exposure: PastSmokeless Tobacco: Never Tobacco Cessation:Counseling Given: Not Answered Alcohol UseStandard Drinks/WeekCommentsNot Currently0 (1 standard drink = 0.6 oz pure alcohol)Humiliation, Afraid, Rape, and Kick questionnaireAnswerDate RecordedWithin the last year, have you been afraid of your partner or ex-partner?No04/09/2023Within the last year, have you been humiliated or emotionally abused in other ways by your partner or ex-partner?No04/09/2023 Within the last year, have you been kicked, [...] relatives?Once a week04/09/2023How often do you attend zoroastrian or baptist services?More than 4 times per year4Do you belong to any clubs or organizations such as zoroastrian groups, unions, fraternal or athletic groups, or school groups?Yes04/09/2023How often do you attend meetings of the clubs or organizations you belong to?More than 4 times per year04/09/2023 Are you , , , , never , or living with a partner?Never jfzdsbi3704/09/2023UDIT-CAnswerDate RecordedQ1: How often do you have a [...] care, and heating?Very hard04/10/2023HQ-2AnswerDate RecordedPatient Health Questionnaire-2 Rtqgg845[facility] [place] [facility] - Occupational Stress QuestionnaireAnswerDate RecordedDo you feel stress - tense, restless, nervous, or anxious, or unable to sleep at night because yourmind is troubled all the time - these days?To some odvuvi3904/09/2023Exercise Vital Sign AnswerDate RecordedOn average, how many [...] steady place to sleep or slept in [place] (including now)?No04/09/2023Comments UnknownSex and Gender InformationValueDate RecordedSex Assigned at BirthNot on fileLegal RjaQhcayv43/15/2023 7:00 PM EDTGender IdentityNot on fileSexual OrientationNot on file Last Filed Vital Signs Vital SignReadingTime TakenCommentsBlood Ndccnimq560/7608 11:06 AM EDT Fzjpi5152 11:06 AM AHFHsjssmsbiti70.2 ??C (97.1 ??F)10/06/2024 9:45 AM EDTRespiratory Wmfa630510/06/2024 9:45 AM EDTOxygen Dquxsurosc70%10/06/2024 9:45 AM EDTInhaled Oxygen Concentration--Xcpmnc47.3 kg (199 lb)10/29/2024 11:06 AM LVTQmhuip137.5 cm (5' 2 )10/29/2024 11:06 AM EDTBody Mass Index36.408 11:06 AM EDT Plan of Treatment DateTypeDepartmentCare Team (Latest Contact Info)Eofbdgfpldv23/19/2025 11:10 AM ESTOffice Visit [facility] [address] [facility] [address] [place] [id number] Birgit Singleton MD [address] [facility] [address] [place] [address] Health MaintenanceDue DateLast DoneCommentsCT Vowrebzexynu33/05/1956FIT-DNA 1955FIT1955FOBT1955 6282Eyeidatdlweiw31/05/1956OVID-19 Vaccine ( season)/, 01/10/2021, 06/18/2020, Additional history existsInfluenza Vaccine (#1)/02/2024, 1Diabetes: Urine Protein Ulcahfmqu62/, 3Diabetes: Hemoglobin A1C /, 06/21/2024, 03/18/2024, Additional history existsMedicare Annual Wellness (AWV)/, 04/10/2023, 04/10/2023Mammogram , 06/29/2023, 06/29/2023, Additional history existsDiabetes: Retinopathy Luumuqftn18, 03/06/2024, 12/18/2023, Additional history zywezdItqmyfuvwyf88olorectal Cancer Screening 05/17/2027Pneumococcal Vaccine: 65+ CzmtdUfnwndcex76/20/2018 Procedures Procedure NamePriorityDate/TimeAssociated DiagnosisCommentsPOCT GLYCOSYLATED HEMOGLOBIN (HGB A1C)Plxsaid9210/06/2024 10:07 AM EDT Type 2 diabetes mellitus without complication, without long-term current use of insulin (HCC) MM TOMOSYNTHESIS SCREENING BI07/17/2024 4:29 PM EDT DIABETIC RETINOPATHY SCREENING - OU - BOTH JFFTSshqngi88/24/2025 2:00 PM EDTfrom Last 3 Months or Most Recently Relevant to Health Maintenance Results * (ABNORMAL) POCT glycosylated hemoglobin (Hb A1C) docked device (10/06/2024 10:07 AM EDT)ComponentValueRef RangeTest MethodAnalysis TimePerformed At Pathologist SignatureHemoglobin A1C7.4Specimen (Source)Anatomical Location / LateralityCollection Method / VolumeCollection TimeReceived TimeBloodVenous blood specimen / Dajlnzo4610/06/2024 10:07 AM EDT Narrative Authorizing ProviderResult TypeResult StatusLisa Alicia NPPOINT OF CARE TEST ENTER/EDIT ORDERABLESFinal Result * MM TOMOSYNTHESIS SCREENING BI (07/17/2024 4:29 PM EDT)Anatomical Region LateralityModalityOtherSpecimen (Source)Anatomical Location / Laterality Collection Method / VolumeCollection TimeReceived Time07/17/2024 4:29 PM EDT Narrative 07/17/2024 4:31 PM EDT [facility] ?[address] ? [place] [address] ? Mammography Report ? Signed ? Patient: JAYE BEAVERS ?MR#: [id number] ?? : 1955 ?Acct:[id number] ?? Age/Sex: 69 / F ?ADM Date: 04/24/25 ?? Loc: MAMMO ? Attending Dr: Rossana Alicia FACILITATOR ? Ordering Physician: Rossana Alicia FACILITATOR ?Results: ? Date of Service: 07/17/24 ?Follow Up: ? Procedure(s): MM tomosynthesis screening BI ?? Accession Number(s): [id number] ? cc: Rossana Alicia FACILITATOR ? Patient Name: ? [facility] ? MR#: [id number] ? : 1955 ? Exam Date: 07/17/2024 ?? Ordering Doctor: RON Alicia CNP ? RADIOLOGY REPORT ? PROCEDURE: ? MM TOMOSYNTHESIS SCREENING BI ? COMPARISON: ? MM TOMOSYNTHESIS SCREENING BI, 06/29/2023. ??MG MAMM SCREEN 3D ?? JOSE CAD, 06/07/2022. ??MG MAMM SCREEN 3D JOSE CAD, 05/31/2021. ??MG MAMM SCREEN JOSE ?? W CAD, 12/07/2015. ? INDICATIONS: ? Screening ? Calculator Name ? NCI Breast Cancer Risk Assessment Tool ?? 5 Year Breast Cancer Risk ? 5.90% ?? Lifetime Breast Cancer Risk ? 17.30% ?? Personal Breast Cancer ?No ?? Personal Ovarian Cancer ? No ?? Treatments ? None ?? Family Cancers ? Sister with breast cancer at age 65; Mother with breast ?? cancer at age 60; Brother with bladder cancer at age 63; Brother with skin ?? cancer at age ??50; Father with skin cancer at age ??60. ? LOCATION: ? [facility] ? BREAST COMPOSITION: ? The breasts are almost entirely fatty. ? FINDINGS: ? DIAGNOSTIC CATEGORY 1--NEGATIVE. ? RIGHT BREAST: ??No significant suspicious finding. ? LEFT BREAST: ??No significant suspicious finding. ? RECOMMENDATIONS: ? ROUTINE MAMMOGRAM AND CLINICAL EVALUATION IN 12 MONTHS. ? PLEASE NOTE: ??A NORMAL MAMMOGRAM DOES NOT EXCLUDE THE POSSIBILITY OF BREAST ?? CANCER. ??A CLINICALLY SUSPICIOUS PALPABLE LUMP SHOULD BE BIOPSIED. ? Dictated by: Milton Tabor DO on 07/17/2024 at 16:28 ? Approved by: Milton Tabor DO on 07/17/2024 at 16:29 ? Dictated By: ?Milton Tabor M.D. ? Signed By: ?07/17/24 1631 ? DD/ 1629 ? TD/TT: ? Stationary Engineer Apprentice: Procedure Note Radiology, Radiologist, MD - 07/17/2024 [place] [address] Mammography Report Signed Patient: JAYE BEAVERS AMR#: [id number] : 1955cct:[id number] Age/Sex: 69 / FADM Date: 07/17/24 Loc: MAMMO Attending Dr: Rossana Alicia FACILITATOR Ordering Physician: Rossana Alicia NPResults: Date of Service: 07/17/24Follow Up: Procedure(s): MM tomosynthesis screening BI Accession Number(s): [id number] cc: Rossana Alicia NP Patient Name: JAYE BEAVERS MR#: [id number] : 1955 Exam Date: 07/17/2024 Ordering Doctor: RON Alicia CNP RADIOLOGY REPORT PROCEDURE: MM TOMOSYNTHESIS SCREENING BI COMPARISON: MM TOMOSYNTHESIS SCREENING BI, 06/29/2023. MG MAMM ZEFKKV0G JOES CAD, 06/07/2022. MG MAMM SCREEN 3D JOSE CAD, 05/31/2021. MG MAMM SCREENBIL W CAD, 12/07/2015. INDICATIONS: Screening Calculator Name [...] skin cancer at age 60. LOCATION: [facility] BREAST COMPOSITION: The breasts are almost [...] 16:29 Dictated By: Milton Tabor M.D. Signed By:07/17/24 1631 DD/ 1629 TD/TT: Stationary Engineer Apprentice: Authorizing ProviderResult TypeResult StatusRossana Alicia NPCLINISYNC IMAGING Final Result * Diabetic Retinopathy Screening - OU - Both Eyes (06/16/2024 2:00 PM EDT) Anatomical RegionLateralityModalityHeadOther Narrative Authorizing ProviderResult TypeResult StatusRossana Alicia NPOPHTH PHOTOGRAPHY Final Result from Last 3 Months or Most Recently Relevant to Health Maintenance Insurance * Guarantor: Jaye Beavers AAccount TypeRelation to PatientDate of BirthPhone Billing AddressPersonal/WizaelSuzy33/05/1956 [facility] [address] [place] [phone] Care Teams Team MemberRelationshipSpecialtyStart DateEnd Date Kuldip Cisneros MD [facility] - [facility]05/21/23 Kuldip Cisnerso MD [address] [place] [address] PCP - Aet05/25/23 Rossana Alicia NP Nurse Pract[facility]erE[facility]05/21/23
--- OUTSIDE RECORDS SUMMARY | 2025-01-30 12:09 | XMS_ITS | Clinical Summary ---
Author Organization [employer] [facility] Address [id number] [address] [place] [address] Care Team Providers Care Quarter Lining Smoother Name Role Phone DonovankingaRossana mora APRN-ACADEMIC AFFAIRS VICE PRESIDENT Primary Care Provider Allergies Active AllergyReactionsCriticalityNoted GyfiSdryjdbyKqheadqbccv43/09/2023 Pneumococcal 7-Leticia Conj Vacc04/03/2022 Patient stated allergy to pneumonia vaccine Medications MedicationSigDispense QuantityRefillsLast FilledStart DateEnd DateStatus hydroCHLOROthiazide (HYDRODIURIL) 25 mg tablet 02/22/2022ctive amLODIPine (NORVASC) 2.5 mg tablet 03/09/2022ctive metoprolol tartrate (LOPRESSOR) 50 mg tablet 02/22/2022ctive atorvastatin (LIPITOR) 80 mg tablet 01/26/2022ctive metFORMIN (GLUCOPHAGE) 500 mg tablet 03/27/2022ctive BREO ELLIPTA 200-25 mcg/dose blister with device 02/22/2022ctive albuterol (PROVENTIL HFA;VENTOLIN HFA) 90 mcg/actuation inhaler 02/20/2022ctive TRULICITY 3 mg/0.5 mL pen injector 03/09/2022ctive aspirin 81 mg Take 1 tablet (81 mg total) by mouth in the morning.Active glucosamine sulfate (GLUCOSAMINE ORAL) Take 1,000 mg by mouth in the evening.Active cetirizine (ZyrTEC) 10 mg tablet Take 1 tablet (10 mg total) by mouth in the morning.Active fluticasone propionate (FLONASE) 50 mcg/actuation nasal spray Indications:RhinosinusitisAdminister 1 spray into each nostril in the morning and at bedtime. 15.8 mL [address]004/03/2022ctive sod zovuh-ytmzrd-icowxd bottle (NEILMED SINUS RINSE COMPLETE) packet with rinse device nasal solution Indications:RhinosinusitisAdminister 1 packet into each nostril in the morning and 1 packet before bedtime. 60 packet 04/03/2022ctive omeprazole (PriLOSEC) 20 mg capsule Indications:Laryngopharyngeal reflux (LPR)Take 1 capsule (20 mg total) by mouth every morning before breakfast. 30 capsule ctive Active Problems ProblemNoted DateDiagnosed DateTinnitus of both ears04/03/2022Rhinosinusitis 04/03/2022Laryngopharyngeal reflux (LPR)04/03/2022 Family History Medical HistoryRelationNameCommentsBreast cancerMotherRelationNameStatusComments Mother Social History Tobacco UseTypesPacks/DayYears UsedDateSmoking Tobacco: FormerCigarettes Smokeless Tobacco: Never Tobacco Cessation:Counseling Given: Not Answered Alcohol UseStandard Drinks/WeekCommentsNot Currently0 (1 standard drink = 0.6 oz pure alcohol)ChildcareAnswerDate NrowunqbDkfrqsafpIflazuu64/12/2019Employment AnswerDate XebkkngiLpxzrbfyryOguqxxo15/12/2019Hunger ScreeningAnswerDate RecordedWithin the past 12 months we worried whether our food would run out before we got money to buy more.Never True04/03/2022Within the past 12 months the food we bought just didn't last and we didn't have money to get more.Never True3Purpose - LifeAnswerDate RecordedPurpose and direction in life Szwutsq00/11/2021CommentsNoSex and Gender InformationValueDate Recorded Sex Assigned at BirthNot on fileLegal JsjYfwofe46/06/2015 11:38 AM EDTGender IdentityNot on fileSexual OrientationNot on file Last Filed Vital Signs Vital SignReadingTime TakenCommentsBlood Pressure--Pulse--Temperature-- Respiratory Rate--Oxygen Saturation--Inhaled Oxygen Concentration--Ilbyvb607.1 kg (225 lb)04/03/2022 2:40 PM MSAYdtyij530.9 cm (5' 1 )04/03/2022 2:40 PM EST Body Mass Index42.51004/03/2022 2:40 PM EST Plan of Treatment Health MaintenanceDue DateLast DoneCommentsDepression Kohmgqvlj44/05/1968Tobacco Ybylwlluk38/05/1968DTaP,Tdap and Td Vaccines (1 - Tdap)1974Zoster (Shingles) Vaccine (1 of 2)2005RSV ( or age 60+ yrs) (1 - Risk 60- 74 years 1-dose series)2015Fall Risk Wrbxhldyx77/05/2021dult BMI Nwvmmwxgf97OVID-19 Vaccine ( - 2024- season)2024 08/18/2021, 01/10/2021, 06/18/2020, Additional history existsInfluenza Vaccine Medical Devices Not on file Insurance Care Teams Team MemberRelationshipSpecialtyStart DateEnd Date Rossana Alicia, [employer]-ACADEMIC AFFAIRS VICE PRESIDENT PCP - GeneralNurse Umguqvjgjesr44/7/18
--- OUTSIDE RECORDS SUMMARY | 2025-01-30 12:09 | XMS_ITS | Clinical Summary ---
Author Organization [facility] Address [address] [address] Care Team Providers Care Manager Business Development Hospice Name Role Phone Unavailable Primary Care Provider Unavailabl e Social History Tobacco UseTypesPacks/DayYears UsedDateSmoking Tobacco: Never AssessedUT Safety & EnvironmentAnswerDate RecordedFear of Current or Ex-PartnerNot on file 05/17/2023Emotionally AbusedNot on file05/17/2023hysically AbusedNot on file 05/17/2023Sexually AbusedNot on file05/17/2023hysically or Sexually AbusedNot on file05/17/2023CommentsUnknownSex and Gender InformationValueDate RecordedSex Assigned at BirthNot on fileLegal NzqWjhkfm82/29/2022 11:00 PM EDT Gender IdentityNot on fileSexual OrientationNot on file Plan of Treatment Not on file
--- OUTSIDE RECORDS SUMMARY | 2025-01-30 12:09 | XMS_ITS | Encounter Summary ---
Author Organization [facility] Address [address] [place] [address] Care Team Providers Care Pbx Inspector Name Role Phone Kuldip Cisneros MD Primary Care Provider [phone] Rossana Alicia NP Unavailable [phone] Kuldip Cisneros MD Unavailable Encounter Details DateTypeDepartmentCare Team (Latest Contact Info)Vysopbewclf25/09/2024Clinisync Result Encounter [facility] Department Unsolicited Rossana Alicia, AYDEE [address] [facility] [place] [id number] Social History Tobacco UseTypesPacks/DayYears UsedDateSmoking Tobacco: FormerCigarettesQuit: 1994Passive Smoke Exposure: PastSmokeless Tobacco: NeverAlcohol UseStandard Drinks/WeekCommentsNot Currently0 (1 standard drink = 0.6 oz pure alcohol) Humiliation, Afraid, Rape, and Kick questionnaireAnswerDate RecordedWithin the last year, have you been afraid of your partner or ex-partner?No04/09/2023Within the last year, have you been humiliated or emotionally abused in other ways by your partner or ex-partner?No04/09/2023Within the last year, have you been kicked, hit, slapped, or otherwise physically hurt by your partner or ex-partner?No04/09/2023Within the last year, have you been raped or forced to have any kind of sexual activity by your partner or ex-partner?No04/09/2023 Social Connection and Isolation PanelAnswerDate RecordedIn a typical week, how many times do you talk on the phone with family, friends, or neighbors?More than three times a week04/09/2023How often do you get together with friends or relatives?Once a week04/09/2023How often do you attend gnosticist or islam services?More than 4 times per year4Do you belong to any clubs or organizations such as gnosticist groups, unions, fraLifestreams or athletic groups, or school groups?Yes04/09/2023How often do you attend meetings of the clubs or organizations you belong to?More than 4 times per year04/09/2023re you , , , , never , or living with a partner?Never zntfhcy0304/09/2023UDIT-CAnswerDate RecordedQ1: How often do you have a drink containing alcohol?Never04/09/2023Q2: How many drinks containing alcohol do you have on a typical day when you are drinking?Patient does not drink04/09/2023Q3: How often do you have six or more drinks on one occasion?Never04/09/2023Overall Financial Resource Strain (CARDIA)AnswerDate RecordedHow hard is it for you to pay for the very basics like food, housing, medical care, and heating?Very hard 04/10/2023HQ-2AnswerDate RecordedPatient Health Questionnaire-2 Score0 06/12/2024[facility] [place] [facility] Occup[facility] Health - Occupational Stress QuestionnaireAnswerDate RecordedDo you feel stress - tense, restless, nervous, or anxious, or unable to sleep at night because yourmind is troubled all the time - these days?To some sabgqw8004/09/2023Exercise Vital SignAnswerDate Recorded On average, how many days per week do you engage in moderate to strenuous exercise (like a brisk walk)?0 days04/09/2023On average, how many minutes do you engage in exercise at this level?0 min04/09/2023Hunger Vital SignAnswerDate RecordedWithin the past 12 months, you worried [...] InformationValueDate RecordedSex Assigned at BirthNot on fileLegal QvcUisfoj95/15/2023 7:00 PM EDTGender IdentityNot on fileSexual OrientationNot on filedocumented as of this encounter Functional Status * Over the past 2 weeks, how often have you been bothered by any of the following problems?QuestionAnswerDate of AssessmentAuthorLittle interest or pleasure in doing thingsNot at all06/12/2024 9:52 AM Irene Betts MA Feeling down, depressed, or hopelessNot at all06/12/2024 9:52 AM Irene Betts MAPatient Health Questionnaire-2 Kmanp524 9:52 AM EDT Irene Kitchen MA * [...] 9:52 AM Irene Betts MAPatient Health Questionnaire-9 Pljht385 9:52 AM Irene Betts MA * How difficult have these problems made it for you to do your work, take care of things at home, or get along with other people?AnswerDate of Assessment AuthorNot difficult at 06/12/2024 9:52 AM Irene Betts MA documented as of this encounter Plan of Treatment DateTypeDepartmentCare Team (Latest Contact Info)Nzcqmpxsiup57/19/2025 11:10 AM ESTOffice Visit [facility] [address] [facility] [address] [place] [address] Birgit Singleton MD [address] [facility] [address] [place] [address] documented as of this encounter Procedures Procedure NamePriorityDate/TimeAssociated DiagnosisCommentsCT SINUS WO CON 10/02/2023 4:05 PM EDT documented in this encounter Results * CT SINUS WO CON (10/02/2023 4:05 PM EDT)Anatomical RegionLateralityModality OtherSpecimen (Source)Anatomical Location / LateralityCollection Method / VolumeCollection TimeReceived Time10/02/2023 4:05 PM EDT Narrative 10/02/2023 4:08 PM EDT [facility] ?[address] ? [place] [address] ? CT Scan Report ? Signed ? Patient: JAYE BEAVERS A ?MR#: [id number] ?? : 1955 ?Acct:[id number] ?? Age/Sex: 68 / F ?ADM Date: 10/02/23 ?? Loc: CT ? Attending Dr: Rossana Alicia [employer] FOOD PRODUCTS SUPERVISOR ? Ordering Physician: Rossana Alicia NP ?? Date of Service: 10/02/23 ?? Procedure(s): CT sinus wo con ?? Accession Number(s): [id number] ? cc: Rossana Alicia NP ? [facility] ? [address] ? [place] [address] ? Patient Name: ?? JAYE Bernice [facility] ? MRN: [facility]:[id number] ? date: 1955 ?Sex: F ?? Assigned Patient Location: CT ?? Current Patient Location: CT ?? Accession/Order Number: [id number] ?? Exam Date: 10/02/2023 ??13:30 ?Report Date: 10/02/2023 ??16:05 ? At the request of: ?? ROSSANA ALICIA ? Procedure: ??CT sinus wo con ? EXAMINATION: CT sinus wo con ? HISTORY: Chronic Sinusitis ? COMPARISON: No relevant comparison available. ? TECHNIQUE: Axial and Coronal CT images were created without IV contrast. Dose ?? reduction techniques were achieved by using automated exposure control and/or ?? adjustment of mA and/or kV according to patient size and/or use of iterative ?? reconstruction technique. ? FINDINGS: ?? MAXILLARY SINUSES: 2.3 mm right and 3.5 mm left maxillary mucoperiosteal ?? thickening in the lower portions. Some mild mucoperiosteal thickening ?? bilateral ?? ostiomeatal units with narrowing ?? ETHMOID SINUSES: No significant mucosal thickening or fluid. Fovea ethmoidali ?? and lamina papyracea are symmetric and intact. ?? SPHENOID SINUSES: Minimal mucoperiosteal thickening measuring 2 mm inferior ?? right sphenoid. The left sphenoid normally aerated ?? FRONTAL SINUSES: No significant mucosal thickening or fluid. Frontal recesses ?? are patent. ?? NASAL FOSSA: 3 mm leftward deviation of the nasal septum. No sandhya bullosa or ? paradoxical turbinates are identified. ?? OTHER: Negative. Limited views of the skull base and orbits are unremarkable. ? CT/CT sinus wo con ?? IMPRESSION: ? Minimal bilateral maxillary and right sphenoid mucoperiosteal thickening ? Electronically authenticated by: RUDDY ??BOBBY ?? Date: 10/02/2023 ??16:05 ? Dictated By: ?Ruddy Rosales M.D. ? Signed By: ?10/02/23 1608 ? DD/ 1605 ? TD/TT: ? Women'S Activities Adviser: Procedure Note Radiology, Radiologist, MD - 10/02/2023 [place] [address] CT Scan Report Signed Patient: JAYE BEAVERS AMR#: [id number] : 1955cct:[id number] Age/Sex: 68 / FADM Date: 10/02/23 Loc: CT Attending Dr: Rossana Alicia NP Ordering Physician: Rossana Alicia NP Date of Service: 10/02/23 Procedure(s): CT sinus wo con Accession Number(s): [id number] cc: Rossana Alicia NP The [address] [address] Patient Name: JAYE BEAVERS MRN: [id number] date: 1955 Sex: F Assigned Patient Location: CT Current Patient Location: CT Accession/Order Number: [id number] Exam Date: 10/02/2023 13:30 Report Date: 10/02/2023 16:05 At the request of: ROSSANA ALICIA Procedure: CT sinus wo con EXAMINATION: CT sinus wo con HISTORY: Chronic Sinusitis COMPARISON: No relevant comparison available. TECHNIQUE: Axial and Coronal CT images were created without IV contrast.Dose reduction techniques were achieved by using automated exposure controland/or adjustment of mA and/or kV according to patient size and/or use ofiterative reconstruction technique. FINDINGS: MAXILLARY SINUSES: 2.3 mm right and 3.5 mm left maxillary mucoperiosteal thickening in the lower portions. Some mild mucoperiosteal thickening bilateral ostiomeatal units with narrowing ETHMOID SINUSES: No significant mucosal thickening or fluid. Foveaethmoidali and lamina papyracea are symmetric and intact. SPHENOID SINUSES: Minimal mucoperiosteal thickening measuring 2 mminferior right sphenoid. The left sphenoid normally aerated FRONTAL SINUSES: No significant mucosal thickening or fluid. Frontalrecesses are patent. NASAL FOSSA: 3 mm leftward deviation of the nasal septum. No conchabullosa or paradoxical turbinates are identified. OTHER: Negative. Limited views of the skull base and orbits areunremarkable. CT/CT sinus wo con IMPRESSION: Minimal bilateral maxillary and right sphenoid mucoperiosteal thickening Electronically authenticated by: RUDDY ROSALES Date: 10/02/2023 16:05 Dictated By: Ruddy Rosales M.D. Signed By:10/02/23 1608 DD/ 1605 TD/TT: Women'S Activities Adviser: Authorizing ProviderResult TypeResult StatusLisa Maral NPCLINISYNC IMAGING Final Result documented in this encounter Visit Diagnoses Not on filedocumented in this encounter Additional Health Concerns AssessmentNoted TimePHQ-9 Depression Total Score: 301 11:04 AM EST documented as of this encounter Care Teams Team MemberRelationshipSpecialtyStart DateEnd Date Kuldip Cisneros MD PCP - GeneralFacaly Medicine05/21/23 Kuldip Cisneros MD [address] [place] [address] PCP - [employer]05/25/23 Rossana Alicia NP Nurse PractitionerFamily Medicine05/21/23documented as of this encounter
--- OUTSIDE RECORDS SUMMARY | 2025-01-30 12:11 | XMS_ITS | CCD ---
Author Organization [facility] Care Team Providers Care Tmd Teacher Assistant Name Role Phone ROSSANA ALICIA Primary Care Physician [phone] Julian BONILLA Attending Unavailable NILLJulian Attending Unavailable AICHALFONZO, ROSSANA Glass Referring Unavailable NILLJulian Attending Unavailable NILJulian Khoury Attending Unavailable AICHHOLZ, ROSSANA Glass Referring Unavailable AICHHOLZ, CHILDHOOD DEVELOPMENT TEACHER ROSSANA Admitting Unavailable AICHHOLZ, CHILDHOOD DEVELOPMENT TEACHER ROSSANA Attending Unavailable AICHHOLZ, CHILDHOOD DEVELOPMENT TEACHER ROSSANA Consulting Unavailable AICHHOLZ, CHILDHOOD DEVELOPMENT TEACHER ROSSANA Primary Care Unavailable NILL ., DR GUERRA Attending Unavailable NILL ., DR GUERRA Consulting Unavailable NILL ., DR GUERRA Admitting Unavailable AICHHOLZ, CHILDHOOD DEVELOPMENT TEACHER ROSSANA Primary Care Unavailable GURPREET II, PHILIP Consulting Unavailable NABILA MAGANA Consulting Unavailable AICHHOLZ, CHILDHOOD DEVELOPMENT TEACHER ROSSANA Admitting Unavailable AICHHOLZ, CHILDHOOD DEVELOPMENT TEACHER ROSSANA Attending Unavailable AICHHOLZ, CHILDHOOD DEVELOPMENT TEACHER ROSSANA Consulting Unavailable AICHHOLZ, CHILDHOOD DEVELOPMENT TEACHER ROSSANA Primary Care Unavailable AICHHOLZ, CHILDHOOD DEVELOPMENT TEACHER ROSSANA Primary Care Unavailable AICHHOLZ, CHILDHOOD DEVELOPMENT TEACHER ROSSANA Admitting Unavailable AICHHOLZ, CHILDHOOD DEVELOPMENT TEACHER ROSSANA Attending Unavailable AICHHOLZ, CHILDHOOD DEVELOPMENT TEACHER ROSSANA Consulting Unavailable AICHHOLZ, CHILDHOOD DEVELOPMENT TEACHER ROSSANA Primary Care Unavailable BOBBY, DR RUDDY Nguyen Consulting Unavailable AICHHOLZ, CHILDHOOD DEVELOPMENT TEACHER ROSSANA Admitting Unavailable AICHHOLZ, CHILDHOOD DEVELOPMENT TEACHER ROSSANA Attending Unavailable AICHHOLZ, CHILDHOOD DEVELOPMENT TEACHER ROSSANA Consulting Unavailable Amelia CORTEZ, Kuldip Primary Care Provider Kuldip Cisneros MD Primary Care Provider Aichholz REGIONAL CLINICAL DIRECTOR, Rossana Unavailable Kuldip Cisneros MD Unavailable Timmis MD, Beverley H Attending Provider Unavailab le Timmis JrBeverley H Attending Unavailable Timmis Jr, Beverley H Admitting Unavailable MIKEMISBEVERLEY H Referring Unavailable IONSBEVERLEY H Consulting Unavailable Rossana Alicia Primary Care Unavailable Ruddy Rosales V. Attending Unavailable Ruddy Rosales V. Admitting Unavailable ROSSANA ALICIA Attending Unavailable ROSSANA ALICIA Attending Unavailable IONSBEVERLEY H Attending Unavailable KACIE ALICIAA Referring Unavailable MARAL, ROSSANA Attending Unavailable IONSBEVERLEY H Attending Unavailable MARAL, ROSSANA Attending Unavailable MARAL, ROSSANA Attending Unavailable NABILA DRUMMOND Attending Unavailable NABILA DRUMMOND Referring Unavailable Rossana Greene Primary Care Provider Rossana Greene Attending Provider Kuldip Cisneros MD Primary Care Provider Rossana Alicia NP Unavailable Kuldip Cisneros MD Unavailable Allergies Allergy ClassificationReported Allergen(s)Allergy TypeDate of OnsetReaction(s) Facility (20 sources)Cefaclor; Translations: [cefaclor]Drug Agqcafh42-60-2319Oagyxtzq breathing (finding), [facility], [facility]Penicillin; Translations: [penicillin]Drug AllergyWeal (disorder), Abnormal breathing (finding)[facility] (3 sources)Streptococcus pneumoniae type 1 capsular polysaccharide antigen / Streptococcus pneumoniae type 10Acapsular polysaccharide antigen / Streptococcus pneumoniae type 11A capsular polysaccharide antigen/ Streptococcus pneumoniae type 12F capsular polysaccharide antigen / Streptococcus pneumoniae type14 capsular polysaccharide antigen / Streptococcus pneumoniae type 15B capsular polysaccharide antigen / Streptococcus pneumoniae type 17F capsular polysaccharide antigen / Streptococcus pneumoniae type 18C capsular polysaccharide antigen / Streptococcus pneumoniae type 19A capsular polysaccharide antigen / Streptococcus pneumoniae type 19F capsular polysaccharide antigen / Streptococcus pneumoniae type 2 capsular polysaccharide antigen / Streptococcus pneumoniae type 20 capsular polysaccharideantigen / Streptococcus pneumoniae type 22F capsular polysaccharide [...] 9V capsular polysaccharide antigen; Translations: [pneumococcal 23-valent vaccine]Drug AllergyDyspnea (finding), Weal (disorder) [facility] [place] (1 source)CefaclorDrug Otrturo97-30-1136Eis [facility] (3 sources)PenicillinsDrug allergy (disorder)36-32-4803jid and [facility] (1 source)Pneumovax 23Drug allergy (disorder)35-01-5777[facility] (20 sources)PenicillinsDrug Tqbkxbv04-93-6146Kbrnb, [facility] ([facility] sources)Pneumococcal vaccineDrug Xosjpjn71-92-1790Lffeu, Shortness of breath [facility] (3 sources)Influenza Virus Vaccines; Translations: [Influenza Virus Vaccines] Allergy to uexcbzxfx49-66-4795gko and [facility] (1 source)PenicillinsDrug allergy (disorder)74-52-6512[facility] (1 source)pneumococcal 13-valent conjugate vaccine; Translations: [pneumococcal 13-valent conjugate vaccine]Propensity to adverse reactions to drug (disorder) [facility] (4 sources)Streptococcus pneumoniae serotype 14 capsular antigen diphtheria HYC257 protein conjugate vaccineDrug Xnotdna86-46-0924Plwqn, Shortness of breath [facility] Medications Current Medications MedicationDrug Class(es)DatesSig (Normalized)Sig (Original)[id number] 200 actuat albuterol 0.09 mg/actuat metered dose inhaler (20 sources)beta2-Adrenergic AgonistStart: 13-79-6948yiex 1 puff(s) by inhalation four times daily as needed for wheezingAlbuterol Sulfate 90 mcg/actuation HFA aerosol inhaler Active 2 PUFF INHALATION Four times daily as needed for shortness of breath or wheezing 25.5 November 28, 2024 12:00am Complies with drug therapyStart: 08-16-2023 End: 97-89-8781qged 2 puff(s) by inhalation every six hours for wheezing albuterol HFA 90 mcg/act inhaler Indications: Moderate persistent asthma without complication (HCC)Inhale 2 puffs every 6 (six) hours if needed for wheezing or shortness of breath 17 g 4 12/25/2023 ActiveStart: 03-05-2023 End: 14-17-0309dxum 2 puff(s) by inhalation every six hours for wheezing albuterol HFA 90 mcg/act inhaler Indications: Moderate persistent asthma without complication (CMS/HCC) Inhale 2 puffs every 6 (six) hours if needed for wheezing 18 g 1 03/05/2023 06/03/2023 ActiveamLODIPine 2.5 mg oral tablet (20 sources)Dihydropyridine Calcium Channel BlockerStart: 17-01-4532druk 1 tablet by mouth once dailyAmlodipine 2.5 mg tablet Active 2.5 MG PO Daily December 18, 2024 12:00am Complies with drug therapyStart: 07-05-2023 End: 93-19-1046mzts 1 tablet by mouth once dailyamLODIPine (Norvasc) 2.5 MG tablet Indications: Primary hypertension Take 1 tablet (2.5 mg) by mouth Daily Take by mouth Daily. 90 tablet 1 06/12/2024 ActiveStart: 02-26-2023 End: 32-11-1040vlyj 1 tablet by mouth in the morningamLODIPine (Norvasc) 2.5 MG tablet Indications: Primary hypertension (CMS/HCC) Take 1 tablet (2.5 mg) by mouth in the morning. Take by mouth Daily.. 90 tablet 1 02/26/2023 05/27/2023 ActiveStart: 49-31-1796Hkawbjh 2.5 mg Tab Refills(s) 0 Start Date: 03/13/19 Status: Orderedaspirin 81 mg oral tablet (20 sources)Platelet Aggregation Inhibitor, Nonsteroidal Anti-inflammatory Drug Start: 50-50-7775gbcr 1 tablet by mouth once dailyAspirin 81 mg tablet Active 81 MG PO Daily December 18, 2024 12:00am Complies with drug therapyStart: 11-05-2023 End: 58-45-6327Ryxqapk Low Dose 81 MG EC tablet 09/11/2024 ActiveStart: 02-26-2023 End: 00-41-4096nmpn 1 tablet by mouth in the morningaspirin 81 MG EC tablet Indications: Type 2 diabetes mellitus without complication, without long-term current use of insulin (CMS/HCC) Take 1 tablet (81 mg) by mouth in the morning. 90 tablet 1 02/26/2023 05/27/2023 ActiveStart: 63-58-8605uwtr 1 mg by mouth once dailyaspirin 81 mg Oral EC Tab mg tab(s), Oral, Daily, Refills(s) 0 Start Date: 08/15/18 Status: Orderedatorvastatin 80 mg oral tablet (20 sources)HMG-CoA Reductase InhibitorStart: 07-05-2023 End: 70-94-4810ajpj 1 tablet by mouth once daily at bedtimeAtorvastatin 80 mg tablet Active 80 MG PO Daily at bedtime January 02, 2025 12:00am Complies with drug therapyStart: 02-26-2023 End: 67-92-0928tivs 1 tablet by mouth in the morningatorvastatin (Lipitor) 80 MG tablet Indications: Type 2 diabetes mellitus without complication, without long- term current use of insulin (CMS/HCC) , Mixed hyperlipidemia (CMS/HCC) Take 1 tablet (80 mg) by mouth in the morning. 90 tablet 1 02/26/2023 05/27/2023 Active Start: 82-23-6511rhce 1 tablet by mouth once dailyatorvastatin 80 mg Tab 80 mg = 1 tab(s), Oral, Daily, Refills(s) 0 Start Date: 04/18/22 Status: Ordered azelastine hydrochloride 0.5 mg/ml ophthalmic solution (2 sources)Histamine-1 Receptor AntagonistStart: 09-01-2024 End: 26-94-2597pfst 1 drop(s) into the eye(s) in the morningazelastine (Optivar) 0.05 % ophthalmic solution Indications: Environmental and seasonal allergies Ad employee relations assistant 1 drop into both eyes in the morning and 1 drop in the evening. Do all this for 10 days. 6mL 09/01/2024 09/11/2024 Activecetirizine hydrochloride 10 mg oral tablet (20 sources)Histamine-1 Receptor AntagonistStart: 07-05-2023 End: 38-44-6916mjet 1 tablet by mouth once daily as neededCetirizine 10 mg tablet Active 10 MG PO Daily as needed January 02, 2025 12:00am Complies with drug therapyStart: 02-26-2023 End: 36-75-5630mkay 1 tablet by mouth in the morningcetirizine (ZyrTEC) 10 MG tablet Indications: Environmental and seasonal allergies Take 1 tablet (10 mg) by mouth in the morning. 90 tablet 1 02/26/2023 05/27/2023 Activechondroitin sulfates 400 mg / glucosamine sulfate 500 mg oral tablet (11 sources) End: 56-41-7118ucrc 1 tablet by mouth in the morning, then take 1 tablet by mouth in the evening, then take 1 tablet by mouth at bedtimeglucosamine- chondroitin 500-400 MG tablet Take 1 tablet by mouth in the morning and 1 tablet in theevening and 1 tablet before bedtime. 03/06/2024 Discontinued (Therapy completed)Continuous Glucose Chief Lock Operator (Dexcom G7 Chief Lock Operator) device (13 sources)Start: 03-06-2024 End: 69-02-3893Teotvxnhfy Glucose Chief Lock Operator (Dexcom G7 Chief Lock Operator) device Indications: Type 2 diabetes mellitus without complication, without long-term current use of insulin (CMS/HCC) , Hypoglycemia 1 each Daily 1 each 03/06/2024 06/12/2024 Discontinued (Therapy completed)Start: 03-06-2024 End: 20-71-4959Lqryjlthbo Glucose Chief Lock Operator (Dexcom G7 Chief Lock Operator) device Indications: Type 2 diabetes mellitus without complication, without long-term current use of insulin (CMS/HCC) , Hypoglycemia 1 each Daily 1 each 03/06/2024 03/06/2024 Discontinued (Reorder)Start: 03-06-2024 End: 79-99-9506Oucjzfblvo Glucose Chief Lock Operator (Dexcom G7 Chief Lock Operator) device Indications: Type 2 diabetes mellitus without complication, without long-term current use of insulin (CMS/HCC) , Hypoglycemia 1 each Daily 1 each 03/06/2024 03/06/2025 Active End: 12-42-5037Luyxtjofyt Glucose Chief Lock Operator (Dexcom G7 Chief Lock Operator) device 1 each Daily 03/06/2024 Discontinued (Reorder)Continuous Glucose Sensor (Dexcom G7 Sensor) misc (8 sources)Start: 03-06-2024 End: 88-89-8845Eucccedicl Glucose Sensor (Dexcom G7 Sensor) misc Indications: Type 2 diabetes mellitus without complication, without long-term current use of insulin (CMS/[facility]) , Hypoglycemia 1 each Daily 3 each 11 03/06/2024 04/05/2024 Active End: 34-26-0539Cdxhafufih Glucose Sensor (Dexcom G7 Sensor) misc 1 each Daily 03/06/2024 Discontinued (Reorder)dapagliflozin 10 mg oral tablet (20 sources)Sodium-Glucose Cotransporter 2 InhibitorStart: 08-16-2023 End: 43-14-4325ivce 1 tablet by mouth once dailyDapagliflozin Propanediol 10 mg tablet Active 10 MG PO Daily January 02, 2025 12:00am Complies with drug therapydexamethasone 1 mg/ml / neomycin 3.5 mg/ml / polymyxin b 07263 unt/ml ophthalmic suspension (13 sources)Aminoglycoside Antibacterial, Polymyxin-class Antibacterial, CorticosteroidStart: 82-74-3970plkr 1 drop(s) into the eye(s) four times daily ndpnddse-kotouflle-rsgACRAOaoxlz (Maxitrol) 0.1 % ophthalmic suspension INSTILL 1 DROP INTO BOTH EYES FOUR TIMES DAILY FOR 5 DAYS 08/27/2024 Active0.5 ml dulaglutide 1.5 mg/ml auto-injector (2 sources)GLP-1 Receptor AgonistStart: 98-29-0063Eieoyaicp Pen 0.75 mg/0.5 mL subcutaneous solution Refills(s) 0 Start Date: 03/13/19 Status: Ordered dulaglutide (Trulicity) 3 MG/0.5ML solution pen-injector (1 source)Start: 02-26-2023 End: 20-22-7918hgnuyh 3 mg by subcutaneous injection every weekdulaglutide (Trulicity) 3 MG/0.5ML solution pen-injector Indications: Type 2 diabetes mellitus without complication, without long-term current use of insulin ([facility]) Inject 3 mg under the skin 1 (one) time per week 12 each 1 02/26/2023 05/21/2023 Activefluticasone propionate 0.05 mg/actuat metered dose nasal spray (12 sources)CorticosteroidStart: 10-04-2023 End: 77-57-3209lxgy 2 spray(s) nasal route once dailyfluticasone (Flonase) 50 MCG/ACT nasal spray Indications: Chronic sinusitis of both maxillary sinuses Administer 2 sprays into each nostril Daily Shake gently. Before first use, prime pump. After use, clean tip and replace cap. 48 g 1 12/05/2023 03/04/2024 ActiveFluticasone Furoate-Vilanterol (20 sources)Corticosteroid, beta2-Adrenergic AgonistStart: 42-26-3855Xxqpoctlwey Furoate-Vilanterol (Breo Ellipta) 200-25 mcg/dose blister with device Active 1 INH INHALATION Daily January 02, 2025 12:00am Complies with drug therapyStart: 07-05-2023 End: 85-15-2474wmpm 1 puff(s) by mouth once dailyFluticasone Furoate-Vilanterol (Breo Ellipta) 200-25 MCG/ACT aerosol powder Indications: Moderate persistent asthma without complication (HCC) Inhale 1 puff Daily Rinse mouth after use 3 each 1 10/06/2024 01/04/2025 ActiveStart: 02-26-2023 End: 16-07-6154jxek 1 puff(s) by inhalation in the morningFluticasone Furoate- Vilanterol (Breo Ellipta) 200-25 MCG/ACT aerosol powder Indications: Moderate pe rsistent asthma without complication (CMS/HCC) Inhale 1 puff in the morning. 90 each 1 02/26/2023 05/27/2023 ActiveStart: 29-84-3827sshh 1 [IU] by inhalation once dailyBreo Ellipta 100 mcg-25 mcg inhalation powder 1 puff(s), Inhalation, Daily, 1 unit(s), Refill(s) 2,30 dose unit Start Date: 08/15/18 Status: Ordered glucosamine hydrochloride 1500 mg oral tablet (2 sources)Start: 05-07-5505sglh 1500 mg by mouth once dailyglucosamine 1,500 mg, Oral, Daily, Refills(s) 0 Start Date: 08/15/18 Status: Ordered hydroCHLOROthiazide 25 mg oral tablet (20 sources)Thiazide DiureticStart: 01-17-2024 End: 44-55-2429hvpc 1 tablet by mouth once dailyHydrochlorothiazide 25 mg tablet Active 25 MG PO Daily January 02, 2025 12:00am Complies with drug therapy Start: 07-05-2023 End: 19-88-1072odkr 1 tablet by mouth once dailyhydroCHLOROthiazide (HYDRODiuril) 25 MG tablet Indications: Primary hypertension (CMS/HCC) Take 1 ta blet (25 mg) by mouth Daily 90 tablet 1 07/05/2023 12/05/2023 DiscontinuedStart: 02-26-2023 End: 45-41-9551kgkr 1 tablet by mouth in the morninghydroCHLOROthiazide (HYDRODiuril) 25 MG tablet Indications: Primary hypertension (CMS/HCC) Take 1 ta blet (25 mg) by mouth in the morning. 90 tablet 1 02/26/2023 05/27/2023 Active Start: 18-71-9504ucxujsaltvpdtigsinh 25 mg oral tablet Refills(s) 0 Start Date: 03/13/19 Status: OrderedmetFORMIN hydrochloride 500 mg oral tablet (20 sources)BiguanideStart: 07-05-2023 End: 43-10-7127miby 1 tablet by mouth twice daily at mealtimeMetformin 500 mg tablet Active 500 MG PO Twice daily with meals January 02, 2025 12:00am Complieswith drug therapyStart: 02-26-2023 End: 70-13-3760vhpn 1 tablet by mouth in the morningmetFORMIN (Glucophage) 500 MG tablet Indications: Type 2 diabetes mellitus without complication, without long-term current use of insulin (CMS/HCC) Take 1 tablet (500 mg) by mouth in the morning and 1 tablet (500 mg) in the evening. Take with meals. 180 tablet 1 02/26/2023 05/27/2023 ActiveStart: 16-33-1146eucadmezj 500 mg oral tablet Refills(s) 0 Start Date: 03/13/19 Status: OrderedmethylPREDNISolone (2 sources)CorticosteroidStart: 09-01-2024 End: 43-46-1603nopxzvGJWVRNQqtynr (Medrol Dospak) 4 MG tablets Indications: Environmental and seasonal allergies Take with food Follow schedule on package instructions 21 tablet 09/01/2024 09/08/2024 Activemetoprolol tartrate 25 mg oral tablet (20 sources)beta-Adrenergic BlockerStart: 15-13-2976wurj 1 tablet by mouth twice dailyMetoprolol Tartrate 25 mg tablet Active 25 MG PO Twice daily January 02, 2025 12:00am Complies with drug therapyStart: 07-05-2023 End: 62-59-8679zisb 1 tablet by mouth in the morningmetoprolol tartrate (Lopressor) 50 MG tablet Indications: Primary hypertension Take 1 tablet (50 mg) by mouth in the morning and 1 tablet (50 mg) before bedtime. 180 tablet 1 10/06/2024 01/04/2025 ActiveStart: 02-26-2023 End: 68-98-9239evev 1 tablet by mouth in the morningmetoprolol tartrate (Lopressor) 50 MG tablet Indications: Primary hypertension (CMS/HCC) Take 1 tabl et (50 mg) by mouth in the morning and 1 tablet (50 mg) before bedtime. 180 tablet 1 02/26/2023 05/27/2023 ActiveStart: 23-51-1615pptx 1 tablet by mouth once dailyMetoprolol tartrate 25 mg Tab 25 mg = 1 tab(s), Oral, Daily, # 30 tab(s), Refills(s) 0 Start Date: 08/15/18 Status: Orderednystatin 100 unt/mg topical powder (20 sources)Polyene AntifungalStart: 72-21-7194Jsrhun 634281 UNIT/GM powder 04/01/2024 ActiveStart: 23-49-8910Llpvtb 245945 UNIT/GM powder APPLY TO AFFECTED AREA TWICE A DAY FOR 15 DAYS 04/01/2024 ActiveStart: 43-32-3632Xohavh 577889 UNIT/GM powder Apply 1 application topically in the morning and 1 application before bedtime. to affected area. 0 12/12/2022 Activenystatin topical 100,000 units/g powder (2 sources)Start: 46-33-8672mhmfnqci topical 100,000 units/g powder danny, Topical, TID, Refill(s) 0 Start Date: 08/15/18 Status: Orderedomeprazole 20 mg delayed release oral capsule (20 sources)Proton Pump InhibitorStart: 07-05-2023 End: 01-25-1778aslq 1 capsule by mouth once dailyOmeprazole 20 mg capsule,delayed release(DR/EC) Active 20 MG PO Daily January 02, 2025 12:00am Complies with drug therapyStart: 02-26-2023 End: 99-77-8079sbbv 1 capsule by mouth before mealtimeomeprazole (PriLOSEC) [address] capsule Indications: Gastroesophageal reflux disease, unspecified whether esophagitis present Take 1 capsule (20 mg) by mouth in the morning. Take before meals. 90 capsule 1 02/26/2023 05/27/2023 ActiveProAir HFA 90 mcg/inh inhalation aerosol (2 sources)Start: 38-01-2561neba 1 puff(s) by inhalation four times dailyProAir HFA 90 mcg/inh inhalation aerosol puff(s), Inhalation, QID, Refill(s) 0 Start Date: 08/15/18 Status: Orderedsertraline 50 mg oral tablet (1 source)Serotonin Reuptake InhibitorStart: 04-10-2023 End: 73-42-7964odzafcfxfy (Zoloft) 50 MG tablet Indications: Current mild episode of major depressive disorder without prior episode (HCC) (CMS/HCC) Take 1 tablet (50 mg) by mouth in the morning. Start with 1/2 pill daily for 7 days, then increase to 1 pill. 30 tablet 1 04/10/2023 05/10/2023 ActiveTirzepatide (1 source)Start: 58-27-6718Wqswcihgzpo (Mounjaro) 12.5 mg/0.5 mL pen injector Active 12.5 MG SUBCUT every week December 12:00am Complies with drug therapyTirzepatide (Mounjaro) 10 MG/0.5ML solution auto-injector (17 sources)Start: 10-06-2024 End: 03-54-3710Eifyvzmbvwk (Mounjaro) 10 MG/0.5ML solution auto-injector Indications: Type 2 diabetes mellitus without complication, without long-term current use of insulin (HCC) Inject 10 mg under the skin every 7 (seven) days 6 mL 1 10/06/2024 12/29/2024 ActiveStart: 08-04-2024 End: 85-35-3531Iqleofftinq (Mounjaro) 10 MG/0.5ML solution auto-injector Indications: Type 2 diabetes mellitus without complication, without long-term current use of insulin (HCC) Inject 10 mg under the skin every 7 (seven) days 6 mL 1 08/04/2024 10/06/2024 Discontinued (Reorder)Start: 08-04-2024 End: 78-79-1338Exovzygaqro (Mounjaro) 10 MG/0.5ML solution auto-injector Indications: Type 2 diabetes mellitus without complication, without long-term current use of insulin (HCC) Inject 10 mg under the skin every 7 (seven) days 6 mL 1 08/04/2024 10/27/2024 ActiveStart: 08-04-2024 End: 98-97-5062Fxjoqcxqdda (Mounjaro) 10 MG/0.5ML solution auto-injector Indications: Type 2 diabetes mellitus without complication, without long-term current use of insulin Inject 10 mg under the skin every 7 (seven) days 6 mL 1 08/04/2024 10/27/2024 ActiveTirzepatide (Mounjaro) 2.5 MG/0.5ML solution pen-injector (6 sources) End: 84-11-7804Flmbkfulodg (Mounjaro) 2.5 MG/0.5ML solution pen-injector Indications: Type 2 Diabetes Mellitus Inject 2.5 mg under the skin every 7 (seven) days 01/17/2024 Discontinued (Therapy completed)Tirzepatide (Mounjaro) 2.5 MG/0.5ML solution pen-injector Indications: Type 2 Diabetes Mellitus Inject 2.5 mg under the skin every 7 (seven) days ActiveTirzepatide (Mounjaro) 5 MG/0.5ML solution pen-injector (7 sources)Start: 12-18-2023 End: 18-54-2192Daomgwqladl (Mounjaro) 5 MG/0.5ML solution pen-injector Indications: Type 2 diabetes mellitus without complication, without long-term current use of insulin (CMS/HCC) Inject 5 mg under the skin every7 (seven) days 6 mL 1 12/18/2023 03/06/2024 Discontinued (Therapy completed)Start: 12-18-2023 End: 52-12-5654Dfdthlinqgl (Mounjaro) 5 MG/0.5ML solution pen-injector Indications: Type 2 diabetes mellitus without complication, without long-term current use of insulin (CMS/HCC) Inject 5 mg under the skin every7 (seven) days 6 mL 1 12/18/2023 03/11/2024 ActiveTirzepatide (Mounjaro) 7.5 MG/0.5ML solution auto-injector (7 sources)Start: 03-06-2024 End: 62-46-8339Bjnbatqqjxn (Mounjaro) 7.5 MG/0.5ML solution auto-injector Indications: Type 2 diabetes mellitus without complication, without long-term current use of insulin (CMS/HCC) Inject 7.5 mg under the skin every 7 (seven) days 12 mL 1 03/06/2024 05/29/2024 Active Completed/Discontinued Medications MedicationDrug Class(es)DatesSig (Normalized)Sig (Original)doxycycline hyclate 100 mg oral tablet (3 sources)Tetracycline-class DrugStart: 10-04-2023 End: 56-23-8488txcoocxvste (Vibra-Tabs) 100 MG tablet Indications: Chronic sinusitis of both maxillary sinuses 2 pills day #1, then 1 pill daily for 20 days Take with a full glass of water and do not lie down for at least 30 minutes after. 22 tablet 10/04/2023 12/05/2023 Discontinued (Therapy completed)Glucose Blood (FREESTYLE LITE TEST ) (1 source) End: 62-74-6087Uyyowjl Blood (FREESTYLE LITE TEST ) 1 each by In Vitro route Daily 2024 Discontinued (Reorder)Mounjaro 7.5 MG/0.5ML solution auto-injector (6 sources)Start: 05-26-2024 End: 08-04-9113Liylvblk 7.5 MG/0.5ML solution auto-injector Inject 7.5 mg as directed every 7 (seven) days 05/26/2024 08/04/2024 Discontinued (Ineffective) Start: 00-91-2385Yauhlili 7.5 MG/0.5ML solution auto-injector Inject 7.5 mg as directed every 7 (seven) days 05/26/2024 Activesemaglutide 7 mg oral tablet (6 sources)Start: 09-04-2023 End: 84-91-2022rase 1 tablet by mouth before mealtimesemaglutide (Rybelsus) 7 MG tablet Indications: Type 2 diabetes mellitus without complication, without long-term current use of insulin (CMS/HCC) Take 1 tablet (7 mg) by mouth in the morning. Take before meals. 90 tablet 1 09/04/2023 12/05/2023 Discontinued (Ineffective) End: 23-65-8123uxcl 1 tablet by mouth before mealtimesemaglutide (Rybelsus) 3 MG tablet Indications: Type 2 Diabetes Mellitus Take 3 mg by mouth in the morning. Take before meals. 12/05/2023 DiscontinuedTirzepatide (1 source)Start: 01-02-2025 End: 99-42-4348Mlwkkqkaogu (Mounjaro) 10 mg/0.5 mL pen injector Discontinued 10 MG SUBCUT every week December 12:00am January 06, 2025 10:15am Problems Active Problems Problem ClassificationProblemDateDocumented DateEpisodic/ChronicAsthma (20 sources)Asthma; Translations: [Moderate asthma]Onset: ChronicChronic obstructive pulmonary disease and bronchiectasis (20 sources)Pulmonary emphysema; Translations: [Emphysema, unspecified]Onset: 12-23-2021 Resolved: 908889-86-5443PthllooIczgqrhv mellitus with complications (20 sources)Type 2 diabetes mellitus with diabetic peripheral angiopathy without gangrene; Translations: [Type 2 diabetes mellitus with peripheral angiopathy] Onset: 937803-20-3706LfzhrwyCdvuulja mellitus without complication (20 sources)Diabetes mellitus; Translations: [Type 2 diabetes mellitus without complications]Onset: 992520-09-6409AqdrfddNktlnjidd of lipid metabolism (20 sources)Hyperlipidemia; Translations: [Hyperlipidemia, unspecified]Onset: 576415-65-8137TrryunhJpzeptuvcd disorders (8 sources)Gastroesophageal reflux disease; Translations: [Gastro-esophageal reflux disease without esophagitis]92-68-7957HcznwgyUxtibndoo hypertension (20 sources)Benign essential hypertension; Translations: [Essential (primary) hypertension]Onset: 05-23-2022 Resolved: 591049-39-5712QswdfkkMaox disorders (20 sources)Mild major depression, single episode; Translations: [Major depressive disorder, single episode, mild]Onset: 938343-70-9542Slatygn Other aftercare (1 source)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; Translations: [FDC CURRENT USE OF ASPIRIN]Onset: 54-20-6481MokdojstZndhq aftercare (1 source)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 and 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 (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) use of oral hypoglycemic drugs; Translations: [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 HYPOGLYCEMIC DX]Onset: 64-92-5324PyufmalvKnyne and unspecified benign neoplasm (2 sources)Benign neoplasm of ascending colon; Translations: [Benign neoplasm of ascending colon]Onset: 68-59-2075XcnwllctXdaoy and unspecified benign neoplasm (2 sources)Benign neoplasm of transverse colon; Translations: [Benign neoplasm of transverse colon]Onset: 79-12-8608PydzqevoUhwmh and unspecified benign neoplasm (1 source)Benign neoplasm of ascending colon; Translations: [BENIGN NEOPLASM OF ASCENDING COLON]Onset: 40-54-6952SnykprqgZonsz and unspecified benign neoplasm (1 source)Benign neoplasm of transverse colon; Translations: [BENIGN NEOPLASM OF TRANSVERSE COLON]Onset: 62-24-9439SixaeawwUpsul circulatory disease (1 source)Other specified symptoms and signs involving the circulatory and respiratory systems; Translations:[Other specified symptoms and signs involving the circulatory and respiratory systems]Onset: 50-13-2333LcdljoxbRpluf connective tissue disease (2 sources)Pain of toe of left foot; Translations: [Pain in left toe(s)] 75-20-0745BjbryzytCvppq connective tissue disease (2 sources)Capsulitis; Translations: [Other enthesopathy of left foot and ankle] 46-37-1495KqevzosbAijwd connective tissue disease (2 sources)Swelling of toe of left foot; Translations: [Other specified soft tissue disorders]20-33-0534BvqujgzfEdubs endocrine disorders (20 sources)Hypoglycemia; Translations: [Hypoglycemia, unspecified]Onset: 980366-12-5526XnjpeouVrnjj non-traumatic joint disorders (2 sources)Hip pain; Translations: [Pain in left hip]37-84-9907FqqgddnqWjfcl nutritional; endocrine; and metabolic disorders (2 sources)Morbid jbcfeiz24-23-0433JmukkfwEpgog nutritional; endocrine; and metabolic disorders (1 source)Morbid (severe) obesity due to excess calories; Translations: [MORBID SEVERE OBES D/T EXCESS HUNTER]Onset: 16-91-4169BxpxtvqExfyf nutritional; endocrine; and metabolic disorders (1 source)Body mass index (BMI) 40.0-44.9, adult; Translations: [BODY MASS INDEX BMI 40.0-44.9 ADULT]Onset: 28-92-7869UrgbmvvDllcg nutritional; endocrine; and metabolic disorders (20 sources)Body mass index 40+ - severely obese; Translations: [Body mass index (BMI) 40.0-44.9, adult]Onset: 573711-51-5454VlnspcsDmrsc nutritional; endocrine; and metabolic disorders (20 sources)Obesity caused by energy imbalance; Translations: [Morbid (severe) obesity due to excess calories]Onset: 329409-12-5307ObppfdkFdcqq skin disorders (2 sources)Dystrophia unguium; Translations: [Nail dystrophy]39-96-6146Dzraejmk Other skin disorders (4 sources)Mass of neck; Translations: [Localized swelling, mass and lump, neck] 57-69-3168TgfzygkoStdyn upper respiratory disease (20 sources)Allergic disposition; Translations: [Other allergic rhinitis]Onset: 168216-32-7421TxphztfMgywx upper respiratory disease (2 sources)Ulhtot84-34-3672CyyjcpobIipgb upper respiratory infections (20 sources)Chronic bilateral maxillary sinusitis; Translations: [Chronic maxillary sinusitis]Onset: 10-01-2023 Resolved: 538632-28-1072FdbtvnoRyrhmzuzhb and visceral atherosclerosis (2 sources)Peripheral vascular oqeinrc20-88-3793FqtierdEjwahqmq codes; unclassified (20 sources)Sleep apnea; Translations: [Sleep apnea, unspecified]Onset: 091016-87-0314WsleclbMhtffhbo codes; unclassified (1 source)Sleep apnea, unspecified; Translations: [SLEEP APNEA UNSPECIFIED] Onset: 37-94-9162MuegywuRlxqjqpd codes; unclassified (6 sources)Obstructive sleep apnea syndrome; Translations: [Obstructive sleep apnea (adult) (pediatric)]51-21-3844RdqheowApnpmlhf codes; unclassified (2 sources)Edema of lower xovuwjfnt41-97-6727ZrrtnznwAybtqxcz codes; unclassified (1 source)Family history of malignant neoplasm of breast; Translations: [FAMILY HX MALIG NEOPLASM OF BREAST]Onset: 77-41-0067JruoftheScjkyhrj codes; unclassified (1 source)Family history of malignant neoplasm of bladder; Translations: [FAM HX MALIGNANT NEOPLASM BLADDER]Onset: 82-97-7032XitqpedrKvhhcgly codes; unclassified (1 source)Family history of malignant neoplasm of other organs or systems; Translations: [FAM HX MALIG NEOPLASM OTH ORGN/SYS]Onset: 62-75-2977Wdhxeibx Residual codes; unclassified (1 source)Acquired absence of other specified parts of digestive tract; Translations: [ACQ ABSENCE OTH PART DIGESTV TRACT]Onset: 50-64-9000Pfwxxmzw Retinal detachments; defects; vascular occlusion; and retinopathy (2 sources)Retinal artery tfhlihltm44-48-3976NbdhhjpBbttreezx and history of mental health and substance abuse codes (1 source)Personal history of nicotine dependence; Translations: [PERSONAL HISTORY OF NICOTINE DEPEND]Onset: 83-29-3426VyutklvvSwipkxdzokak (2 sources)Patient encounter fpnydh02-47-4132Mmllosrrknna (3 sources)CONTACT W/AND (SUSP) EXPOS COVID-19; Translations: [CONTACT W/AND (SUSP) EXPOS COVID-19]Onset: 09-03-2021 Past or Other Problems Problem ClassificationProblemDateDocumented DateEpisodic/ChronicImmunizations and screening for infectious disease (20 sources)Needs influenza immunization; Translations: [Encounter for immunization]Onset: 757713-57-4074KcsogninPrztbgwcfcvmg (18 sources)Lymphadenopathy of head AND/OR neck; Translations: [Localized enlarged lymph nodes]Onset: 667817-56-5453RgcgkirkSbco disorders (20 sources)Mood disordersOnset: 04-10-2023 Resolved: 640216-10-0218Nzkazus (20 sources)Candidiasis of skin; Translations: [Candidiasis of skin and nail] Onset: 983810-31-4030QgyavrzvTxlue nutritional; endocrine; and metabolic disorders (20 sources)Severe obesity; Translations: [Morbid (severe) obesity due to excess calories]Onset: 02-26-2023 Resolved: 349112-62-5541IsxvcpzRdpcq nutritional; endocrine; and metabolic disorders (20 sources)Body mass index 30+ - obesity; Translations: [Obesity, unspecified] Onset: 08-16-2023 Resolved: 557734-96-9407TtrmokaIhddg screening for suspected conditions (not mental disorders or infectious disease) (20 sources)Screening for malignant neoplasm of colon done; Translations: [Encounter for screening for malignant neoplasm of colon]Onset: 04-18-2022 EpisodicOther upper respiratory infections (20 sources)Acute frontal sinusitis; Translations: [Acute frontal sinusitis, unspecified]Onset: 09-12-2023 Resolved: 841126-64-3380CrrkavbgGrpbia media and related conditions (20 sources)Acute suppurative otitis media without spontaneous rupture of ear drum; Translations: [Acute suppurative otitis media without spontaneous rupture of ear drum, right ear]Onset: 09-12-2023 Resolved: 808816-78-8673WgaxvgnhKukjutkkrcfw (1 source)CONTACT W/AND (SUSP) EXPOS COVID-19; Translations: [CONTACT W/AND (SUSP) EXPOS COVID-19]Onset: 09-01-2021 Results Test NameValueInterpretationReference RangeFacilityCoding Summaryon 10-17-2024 Coding SummaryHTMLBase 64 IubpolcaAQd6zWr+PGhlYWQ+LG5VUHIlK28mxQUlfH0pB6SCUKjTQjwyFGBNWNuPYbHbbvRgDQ1oeDZc ZXJu [file] c2U (more content not included)...[facility] - AP Resultson 66-12-5908Msw - AP [id number]#1.00OTGTIFF [facility] HospitalPathology Sendout Teston 80-09-4074Ifwaxcnko Send Out.See ReportNormalMagruder HospitalComment on above:Order Comment: 10/09/2024@1328 FNA right neck mass 8 slides obtained and 1 cytolyte obtainedPerformed By: #### [id number] #### [facility] (DEFAULT) [address] [place] [id number] 10-09-2024L Specimen: [id number] Received: 10/13/24 Status: JESENIA Lucio Num: [id number] Spec Type: Cytology Subm Dr: BEVERLEY SIEGEL MD Tissues: A FNA SLIDES NOPATH (FNA RT NECK MASS) Procedures: HE/2, Cyto Int and Re, PAPSTN/9, CBLADRIANA Age/ Patient Sex Location Account Attending Physician Bhavana Beavers 69/F RUI [id number] BEVERLEY SIEGEL MD SPEC NUM: [id number] RECD: 10/13/24 STATUS: JESENIA LUCIO NUM: [id number] SWATI: 10/09/24-[address] [facility] [address]: BEVERLEY SIEGEL MD ENTERED: 10/13/[address] [facility] [address]: Simon Colmean SPEC TYPE: Cytology DEPT: [facility] ENTERED BY: [id number] RECV BY: [id number] ORDERED: HE/2, Cyto Int and Re, PAPSTN/9, CBLOCK ORDERED: HE/2, Cyto Int and Re, PAPSTN/9, CBLOCK Pathological Diagnosis Right neck mass (specimen site not specified), fine-needle aspiration (ThinPrep, cell block and smears slides): - Suboptimal for evaluation due to scant cellularity. - Lymphocytes in a background of watery colloid-like material. - See Comment. Comment: The differential diagnosis includes a lymph node with lymphoid proliferation versus lymphocytic thyroiditis. Correlation with clinical date including thyroid antibody serology and radiologic image is required, and flow cytometry study if clinically indicated. Clinical Information Right neck mass. Gross Description Received is 33 ml colorless opaque fixed fluid for cytology said to have been obtained as Right Neck Mass. ThinPrep and cell block preparations are prepared for microscopic examination. Also received are 8 smeared slides for pap for microscopic examination. (/la) Specimen: [id number] Received: 10/13/24 Status: JESENIA Lucio Num: [id number] Spec Type: Cytology Subm Dr: BEVERLEY SIEGEL MD Tissues: A FNA SLIDES NOPATH (FNA RT NECK MASS) Procedures: HE/2, Cyto Int and Re, PAPSTN/9, CBLOCK Patient: Bhavana Beavers [id number] (Continued) Specimen: [id number] Received: 10/13/24 (Continued) Signed (signature on file) Greg Magana MD 10/15/24 0953 Specimen: [id number] Received: 10/13/24 Status: JESENIA Lucio Num: [id number] Spec Type: Cytology Subm Dr: BEVERLEY SIEGEL MD Tissues: A FNA SLIDES NOPATH (FNA RT NECK MASS) Procedures: HE/2, Cyto Int and Re, PAPSTN/9, CBLOCK Patient: Bhavana Beavers [id number] (Continued) Specimen: [id number] Received: 10/13/24 (Continued) Microscopic Description Microscopic examination is performed. CPT Codes 89412, 71622, 81720 Specimen: [id number] Received: 10/13/24 Status: JESENIA Lucio Num: [id number] Spec Type: Cytology Subm Dr: BEVERLEY SIEGEL MD Tissues: A FNA SLIDES NOPATH (FNA RT NECK MASS) Procedures: HE/2, Cyto Int and Re, PAPSTN/9, CBLOCK Patient: Bhavana Beavers [id number] (Continued) Signed (signature on file) Greg Magana MD 10/15/24 0953Normal [facility] HospitalUS Fine Needle Asp/Biopsy, First Lesionon 11-79-9725LC Fine Needle Asp/Biopsy, First Lesion Begin Addendum #1 Pathological Diagnosis: Right neck mass [specimen site not specified], fine needle aspiration [ThinPrep, cell block and smears slides]: - Suboptimal for evaluation due to scant cellularity. - Lymphocytes in a background of watery colloid-like material. - See comment Comment The differential diagnosis includes a lymph node with lymphoid proliferation versus lymphocytic thyroiditis. Correlation with clinical data including thyroid antibody serology and radiologic image is required, and flow cytometry study if clinically indicated. Final Dictated by: Ruddy Rosales MD Dictated DT/TM: 10/22/24 4:14 Signed (Electronic Signature): Ruddy Rosales MD 10/22/24 4:14 pm Technologist: PM EXAMINATION: US Fine Needle Asp/Biopsy, First Lesion HISTORY: Localized swelling, mass and lump, neck COMPARISON: No relevant comparison available. TECHNIQUE: After obtaining informed consent, ultrasound-guided fine needle aspiration was performed in the usual sterile manner. FINDINGS: IMAGING: Ultrasound. BIOPSY NEEDLE: 25-gauge, 2 inch LOCATION: Right posterior neck mass SPECIMEN TYPE: 4 fine-needle aspirates LOCAL ANESTHETIC: 2 cc 1% buffered lidocaine COMPLICATIONS: None. LABORATORY: Prepared slide smears and washings for cell block evaluation. OTHER: 2 cc of medium yellow clear fluid was aspirated PATHOLOGY: Pending. An addendum will be added when results are available. IMPRESSION: 1. Uneventful ultrasound guided fine needle aspiration (FNA) right posterior neck mass. 2. Pathology results are pending. Final Dictated by: Ruddy Rosales MD Dictated DT/TM: 10/09/24 2:53 Signed (Electronic Signature): Ruddy Rosales MD 10/09/24 2:54 pm Technologist: [facility] CenterHbA1c (Bld) [Mass fraction]on 10-06-2024 Interpretation and review of laboratory resultsAbnoAbbeville Area Medical Center HealthcareLaboratory - Hematology and Cell countson 58-00-4026MuF9u (Bld) [Mass fraction]7.4 %NOMS HealthcareUS SOFT TISSUE HEAD AND NECKon 87-65-9990[place], [place] [address] Ultrasound Report Signed Patient: BHAVANA BEAVERS MR#: [id number] : 1955 Acct:[id number] Age/Sex: 69 / F ADM Date: 10/01/24 Loc: US Attending Dr: Beverley Siegel M.D. Ordering Physician: Beverley Siegel M.D. Date of Service: 10/01/24 Procedure(s): US soft tissue head and neck Accession Number(s): [id number] cc: Rossana Alicia REGIONAL CLINICAL DIRECTOR; Beverley Siegel M.D. [address] [address] Patient Name: BHAVANA BEAVERS MRN: [id number] date: 1955 Sex: F Assigned Patient Location: US Current Patient Location: US Accession/Order Number: [id number] Exam Date: 10/01/2024 15:01 Report Date: 10/01/2024 15:06 At the request of: BEVERLEY SIEGEL MD Procedure: US soft tissue head and neck Ultrasound of neck mass Neck mass. Right posterior neck region was scanned. FINDINGS: Anechoic tubular structure identified in region of palpable concern. No color flow identified within this area. At the end of the tubular structure there is a lymph node identified. Normal size and morphology and vascularity. The lymph node measures 9 x 9 x 9 mm. US/US soft tissue head and neck IMPRESSION: Anechoic tubular structure of uncertain significance. There is represent benign finding. Nonenlarged abnormal morphology associated lymph node. May represent reactive node. Likely represents an overall benign finding. May consider further assessment with CT of the neck. Alternatively follow-up imaging in 3-6 months may be obtained. Impression dictated by: Ceasar Luis M.D. 10/01/2024 3:06 PM Dictation Location: [place] [address] Electronically authenticated by: [id number] Y Date: 10/01/2024 15:06 Dictated By: Ceasar Luis D.O. Signed By: 10/01/24 1509 DD/ 1506 TD/TT: Field Case Manager:TBHRadiology, Radiologist, - 10/01/2024 [place] [address] Ultrasound Report Signed Patient: BHAVANA BEAVERS MR#: [id number] : 1955 Acct:[id number] Age/Sex: 69 / F ADM Date: 10/01/24 Loc: US Attending Dr: Beverley Siegel M.D. Ordering Physician: Beverley Siegel M.D. Date of Service: 10/01/24 Procedure(s): US soft tissue head and neck Accession Number(s): [id number] cc: Rossana Alicia REGIONAL CLINICAL DIRECTOR; Beverley Siegel M.D. The [place] [id number] Patient Name: BHAVANA BEAVERS MRN: [id number] date: 1955 Sex: F Assigned Patient Location: US Current Patient Location: US Accession/Order Number: [id number] Exam Date: 10/01/2024 15:01 Report Date: 10/01/2024 15:06 At the request of: BEVERLEY SIEGEL MD Procedure: US soft tissue head and neck Ultrasound of neck mass Neck mass. Right posterior neck region was scanned. FINDINGS: Anechoic tubular structure identified in region of palpable concern. No color flow identified within this area. At the end of the tubular structure there is a lymph node identified. Normal size and morphology and vascularity. The lymph node measures 9 x 9 x 9 mm. US/US soft tissue head and neck IMPRESSION: Anechoic tubular structure of uncertain significance. There is represent benign finding. Nonenlarged abnormal morphology associated lymph node. May represent reactive node. Likely represents an overall benign finding. May consider further assessment with CT of the neck. Alternatively follow-up imaging in 3-6 months may be obtained. Impression dictated by: Ceasar Luis M.D. 10/01/2024 3:06 PM Dictation Location: [place] [address] Electronically authenticated by: [id number] Y Date: 10/01/2024 15:06 Dictated By: Ceasar Luis D.O. Signed By: 10/01/24 1509 DD/ 1506 TD/TT: Field Case Manager: FREDDY HealthcareRadiology Study observation (narrative)[facility] HealthcareUS SOFT TISSUE HEAD AND NECKOrdered By: Radiologist Radiology on 93-56-7811YLRC [employer] Work Phone: Provider Orderson [phone] Orders [id number]#1.00[facility] TOMOSYNTHESIS SCREENING BIon 51-08-8054[place]ma[place], [place] [address] Mammography Report Signed Patient: BHAVANA BEAVERS MR#: [id number] : 1955 Acct:[id number] Age/Sex: 69 / F ADM Date: 07/17/24 Loc: MAMMO Attending Dr: Rossana Alicia NP Ordering Physician: Rossana Alicia NP Results: Date of Service: 07/17/24 Follow Up: Procedure(s): MM tomosynthesis screening BI Accession Number(s): [id number] cc: Rossana Alicia NP Patient Name: BHAVANA BEAVERS MR#: [id number] : 1955 Exam Date: 07/17/2024 Ordering Doctor: RON Alicia CHILDHOOD DEVELOPMENT TEACHER RADIOLOGY REPORT PROCEDURE: MM TOMOSYNTHESIS SCREENING BI COMPARISON: MM TOMOSYNTHESIS SCREENING BI, 06/29/2023. MG MAMM SCREEN 3D JOSE CAD, 06/07/2022. MG MAMM SCREEN 3D JSOE CAD, 05/31/2021. MG MAMM SCREEN JOSE W [...] skin cancer at age 60. LOCATION: [facility] BREAST COMPOSITION: The breasts are almost [...] Signed By: 07/17/24 1631 DD/ 1629 TD/TT: Field Case Manager:TBHRadiology, Radiologist, - 07/17/2024 [place] [address] Mammography Report Signed Patient: BHAVANA BEAVERS MR#: [id number] : 1955 Acct:[id number] Age/Sex: 69 / F ADM Date: 07/17/24 Loc: MAMMO Attending Dr: Rossana Alicia NP Ordering Physician: Rossana Aliica NP Results: Date of Service: 07/17/24 Follow Up: Procedure(s): MM tomosynthesis screening BI Accession Number(s): [id number] cc: Rossana Alicia NP Patient Name: BHAVANA BEAVERS MR#: [id number] : 1955 Exam Date: 07/17/2024 Ordering Doctor: [...] skin cancer at age 60. LOCATION: [facility] BREAST COMPOSITION: The breasts are almost [...] Signed By: 07/17/24 1631 DD/ 1629 TD/TT: Field Case Manager: [facility] HealthcareRadiology Study observation (narrative)[facility] TOMOSYNTHESIS SCREENING BIOrdered By: Radiologist Radiology on 58-70-3131U[facility] Healthcare Work Phone: MLR HEMOGLOBIN A1Con 41-12-7994Sixdxhr [Mass/Vol]171 mg/dLSt. Joseph Medical CenterHbA1c (Bld) [Mass fraction]7.6 %High4.5 - 6.2 %[facility] HealthcareComment on above:ADA RECOMMENDED LIMIT 4.0 - 6.0 ADA THERAPEUTIC TARGET < 7.0 ACTION SUGGESTED > 7.0 Interpretation and review of laboratory resultsAbnormalNOKS HealthcareCLINISYNC St. Joseph Medical CenterXR Foot - left 3 Viewson 96-37-5232Ncfafdy Result: 3 views foot: AP, MO, and LO of the left foot were taken and show no acute fractures or osseous abnormalities, specifically of L 5th digit. The lesser digits are contracted. Incidental finding of accessory ossicle medial to the navicular tuberosity. AP view shows splaying of 3rd and 4th digits and evidence of old, healed 3rd metatarsal distal shaft fracture.[facility] ValdeseRadiology Study observation (narrative)[facility] MLR HEMOGLOBIN A1Con 92-45-6657Uapcaxi [Mass/Vol]217 mg/dLSt. Joseph Medical CenterHbA1c (Bld) [Mass fraction]9.2 %High4.5 - 6.2 %[facility]. [facility] Medical CenterComment on above:ADA RECOMMENDED LIMIT 4.0 - 6.0 ADA THERAPEUTIC TARGET < 7.0 ACTION SUGGESTED > 7.0 Interpretation and review of laboratory resultsAbECU Health Chowan HospitalALL CBC WITH AUTO DIFFon 81-70-3979NQCRNQOUK ABSOLUTE AUTO0.0St. [facility] Medical CenterBasophils/100 WBC (Bld)0.5 %0.2 - 2.0 %[facility] CenterEosinophils/100 WBC (Bld)1.4 %0.9 - 7.0 %[facility]. [facility] Medical CenterErythrocyte distribution width (RBC) [Ratio]14.4 %11.0 - 15.0 %[facility] Medical CenterHematocrit (Bld) [Volume fraction]43.2 %36.0 - 48.0 %[facility] Medical CenterHemoglobin (Bld) [Mass/Vol]13.4 g/dL12.0 - 16.0 g/dLSt. Louis VA Medical CenterMATURE GRANULOCYTES ABS AUTO0.07HighSt. Joseph Medical CenterImmature granulocytes/100 WBC (Bld)1.2 %High0.0 - 0.5 %[facility] CenterInterpretation and review of laboratory resultsAbDetroit Receiving HospitalLYMPHOCYTES ABSOLUTE AUTO1.8 [facility] Medical CenterLymphocytes/100 WBC (Bld)31.6 %20.5 - 60.0 %[facility] HealthcareH (RBC) [Entitic mass]28.0 pg26.7 - 34.0 pgNOTexas County Memorial HospitalHC (RBC) [Mass/Vol] 31.0 g/dL29.9 - 35.2 g/dLNOMS HealthcareMCV (RBC) [Entitic vol]90.4 fL81.0 - 99.0 fLNOMS HealthcareMONOCYTES ABSOLUTE AUTO0.3NOMS HealthcareMonocytes/100 WBC (Bld)5.8 %1.7 - 12.0 %[facility] HealthcareNEUTROPHILS ABSOLUTE AUTO3.4[facility] Healthcare Neutrophils/100 WBC (Bld)59.5 %43.0 - 75.0 %[facility] HealthcarePlatelet mean volume (Bld) [Entitic vol]8.5 fLLow9.5 - 13.5 fLNOMS HealthcareTBH EO #0.1NOMS HealthcareTBH XBV452TTRA HealthcareTBH RBC4.78NOMS HealthcareTBH WBC5.7NOMS HealthcareCLINISYNCNOMS HealthcareCT SINUS WO CONon 91-93-0454Tpo[place], [place] [address] CT Scan Report Signed Patient: BHAVANA BEAVERS MR#: [id number] : 1955 Acct:[id number] Age/Sex: 68 / F ADM Date: 10/02/23 Loc: CT Attending Dr: Rossana Alicia REGIONAL CLINICAL DIRECTOR Ordering Physician: Rossana Alicia NP Date of Service: 10/02/23 Procedure(s): CT sinus wo con Accession Number(s): [id number] cc: Rossana Alicia NP [place] [address] Patient Name: BHAVANA BEAVERS MRN: [id number] date: 1955 Sex: F Assigned Patient Location: CT Current Patient Location: CT Accession/Order Number: [id number] Exam Date: 10/02/2023 13:30 Report Date: 10/02/2023 16:05 At the request of: ROSSANA ALICIA Procedure: CT sinus wo con EXAMINATION: CT sinus wo con HISTORY: Chronic Sinusitis COMPARISON: No relevant comparison available. TECHNIQUE: Axial and Coronal CT images were created without IV contrast. Dose reduction techniques were achieved by using automated exposure control and/or adjustment of mA and/or kV according to patient size and/or use of iterative reconstruction technique. FINDINGS: MAXILLARY SINUSES: 2.3 mm right and 3.5 mm left maxillary mucoperiosteal thickening in the lower portions. Some mild mucoperiosteal thickening bilateral ostiomeatal units with narrowing ETHMOID SINUSES: No significant mucosal thickening or fluid. Fovea ethmoidali and lamina papyracea are symmetric and intact. SPHENOID SINUSES: Minimal mucoperiosteal thickening measuring 2 mm inferior right sphenoid. The left sphenoid normally aerated FRONTAL SINUSES: No significant mucosal thickening or fluid. Frontal recesses are patent. NASAL FOSSA: 3 mm leftward deviation of the nasal septum. No sandhya bullosa or paradoxical turbinates are identified. OTHER: Negative. Limited views of the skull base and orbits are unremarkable. CT/CT sinus wo con IMPRESSION: Minimal bilateral maxillary and right sphenoid mucoperiosteal thickening Electronically authenticated by: RUDDY ROSALES Date: 10/02/2023 16:05 Dictated By: Ruddy Rosales M.D. Signed By: 10/02/23 1608 DD/ 1605 TD/TT: Field Case Manager:TBHRadiology, Radiologist, MD - 10/02/[address] [place] [id number] CT Scan Report Signed Patient: BHAVANA BEAVERS MR#: [id number] : 1955 Acct:[id number] Age/Sex: 68 / F ADM Date: 10/02/23 Loc: CT Attending Dr: Rossana Alicia REGIONAL CLINICAL DIRECTOR Ordering Physician: Rossana Alicia NP Date of Service: 10/02/23 Procedure(s): CT sinus wo con Accession Number(s): [id number] cc: Rossana Alicia NP The [address] [address] Patient Name: BHAVANA BEAVERS MRN: [id number] date: 1955 Sex: F Assigned Patient Location: CT Current Patient Location: CT Accession/Order Number: [id number] Exam Date: 10/02/2023 13:30 Report Date: 10/02/2023 16:05 At the request of: ROSSANA LAICIA Procedure: CT sinus wo con EXAMINATION: CT sinus wo con HISTORY: Chronic Sinusitis COMPARISON: No relevant comparison available. TECHNIQUE: Axial and Coronal CT images were created without IV contrast. Dose reduction techniques were achieved by using automated exposure control and/or adjustment of mA and/or kV according to patient size and/or use of iterative reconstruction technique. FINDINGS: MAXILLARY SINUSES: 2.3 mm right and 3.5 mm left maxillary mucoperiosteal thickening in the lower portions. Some mild mucoperiosteal thickening bilateral ostiomeatal units with narrowing ETHMOID SINUSES: No significant mucosal thickening or fluid. Fovea ethmoidali and lamina papyracea are symmetric and intact. SPHENOID SINUSES: Minimal mucoperiosteal thickening measuring 2 mm inferior right sphenoid. The left sphenoid normally aerated FRONTAL SINUSES: No significant mucosal thickening or fluid. Frontal recesses are patent. NASAL FOSSA: 3 mm leftward deviation of the nasal septum. No sandhya bullosa or paradoxical turbinates are identified. OTHER: Negative. Limited views of the skull base and orbits are unremarkable. CT/CT sinus wo con IMPRESSION: Minimal bilateral maxillary and right sphenoid mucoperiosteal thickening Electronically authenticated by: RUDDY ROSALES Date: 10/02/2023 16:05 Dictated By: Ruddy Rosales M.D. Signed By: 10/02/23 1608 DD/ 1605 TD/TT: Field Case Manager: [facility] CENTERAra HealthcareRadiology Study observation (narrative)[facility] HealthcareCT SINUS WO CONOrdered By: Radiologist Radiology on [id number] Work Phone: mm TOMOSYNTHESIS SCREENING BIon [id number], [place] [address] Mammography Report Signed Patient: BHAVANA BEAVERS MR#: [id number] : 1955 Acct:[id number] Age/Sex: 68 / F ADM Date: 06/29/23 Loc: MAMMO Attending Dr: Rossana Alicia REGIONAL CLINICAL DIRECTOR Ordering Physician: Rossana Alicia NP Results: Date of Service: 06/29/23 Follow Up: Procedure(s): MM tomosynthesis screening BI Accession Number(s): [id number] cc: Rossana Alicia NP Patient Name: BHAVANA BEAVERS MR#: [id number] : 1955 Exam Date: 06/29/2023 Ordering Doctor: RON Alicia CNP RADIOLOGY REPORT PROCEDURE: MM TOMOSYNTHESIS SCREENING BI COMPARISON: MG MAMM SCREEN 3D JOSE CAD, 06/07/2022. MG MAMM SCREEN 3D JOSE CAD, 05/31/2021. INDICATIONS: screening Calculator Name NCI [...] skin cancer at age 60. LOCATION: [facility] BREAST COMPOSITION: Scattered areas fibroglandular density. FINDINGS: DIAGNOSTIC CATEGORY 1--NEGATIVE. RIGHT BREAST: No significant suspicious finding. No significant change has occurred. LEFT BREAST: No significant suspicious finding. No significant change has occurred. RECOMMENDATIONS: ROUTINE MAMMOGRAM AND CLINICAL EVALUATION IN 12 MONTHS. PLEASE NOTE: A NORMAL MAMMOGRAM DOES NOT EXCLUDE THE POSSIBILITY OF BREAST CANCER. A CLINICALLY SUSPICIOUS PALPABLE LUMP SHOULD BE BIOPSIED. Dictated by: Misha Nixon M.D. on 06/29/2023 at 14:29 Approved by: Misha Nixon M.D. on 06/29/2023 at 14:32 Dictated By: Misha Nixon M.D. 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 MG MAMM SCREEN 3D JOSE CAD, 05/31/2021. INDICATIONS: screening Calculator Name NCI [...] skin cancer at age 60. LOCATION: [facility] BREAST COMPOSITION: Scattered areas fibroglandular density. FINDINGS: DIAGNOSTIC CATEGORY 1--NEGATIVE. RIGHT BREAST: No significant suspicious finding. No significant change has occurred. LEFT BREAST: No significant suspicious finding. No significant change has occurred. RECOMMENDATIONS: ROUTINE MAMMOGRAM AND CLINICAL EVALUATION IN 12 MONTHS. PLEASE NOTE: A NORMAL MAMMOGRAM DOES NOT EXCLUDE THE POSSIBILITY OF BREAST CANCER. A CLINICALLY SUSPICIOUS PALPABLE LUMP SHOULD BE BIOPSIED. Dictated by: Misha Nixon M.D. on 06/29/2023 at 14:29 Approved by: Misha Nixon M.D. on 06/29/2023 at 14:32 Dictated By: Misha Nixon M.D. Signed By: 06/29/23 1433 DD/ 31 TD/TT: Field Case Manager: FREDDY [facility]'S HospitalRadiology Study observation (narrative)[facility] TOMOSYNTHESIS SCREENING BIOrdered By: Radiologist Radiology on 30-87-2153JVTMSt. Joseph Medical Center Work Phone: MLR HEMOGLOBIN A1Con 82-83-0957Zpjbqkd [Mass/Vol]232 mg/dLSt. Joseph Medical CenterHbA1c (Bld) [Mass fraction]9.7 %High4.5 - 6.2 %NOMS HealthcareComment on above:ADA RECOMMENDED LIMIT 4.0 - 6.0 ADA THERAPEUTIC TARGET < 7.0 ACTION SUGGESTED > 7.0 Interpretation and review of laboratory resultsAbnormalNOMS HealthcareCLINISYNC NOMS HealthcareMG MAMM SCREEN 3D JOSE CADon 01-40-1559CX MAMM SCREEN 3D JOSE CAD Patient: BHAVANA BEAVERS Exam Date: 06/07/2022 : 1955 Gender:F Ordering : RON ALICIA CNP Admission #: [id number] Family : Order #: [id number] CLICK HERE TO VIEW EXAM RADIOLOGY REPORT [...] skin cancer at age 60. LOCATION: [facility] BREAST COMPOSITION: Scattered areas fibroglandular density. [...] by: Ruddy Rosales MD on 06/07/2022 at 13:35[facility] Ambulatory Visit Summaryon 24-39-6552Vpxpxlxtqx Visit Summary BHAVANA BEAVERS :1955 Visit Date:05/31/2022 Ambulatory Visit Instructions [...] 100 mcg-25 mcg inhalation powder) 1 Puffs InhalationEvery day 30 dose unit Contact prescribing physician if questions or concerns Unchanged glucosamine 1,500 Milligram By Mouth Every day Contact prescribing physician if questionsor concerns Unchanged hydrochlorothiazide (hydrochlorothiazide 25 mg oral tablet) Contact prescribing physicianif questions or concerns Unchanged metformin (metformin 500 mg oral tablet) Contact prescribing physician if questions or concerns Unchanged metoprolol (Metoprolol tartrate 25 mg Tab) 1 Tablets By Mouth Every day Contact prescribing physician if questions or concerns Unchanged nystatin topical (nystatin topical 100,000 units/ g powder) Topical 3 times a day Contactprescribing physician if questions or concerns Allergies Ceclor [...] adenoma of colon Tubular adenoma of colon [facility] Surgery Office/Clinic Noteon 36-05-0948Wbjrbmm Surgery Office/Clinic NoteChief Complaint post operative follow up HPI Staff [...] swallowing difficulties, no hearing loss, no ear infection(s),no nose bleeds. Cardiovascular: normal blood pressure, no [...] Tobacco Use:. Never Smokeless Tobacco Use:. Cigarettes, 1per day. Started age 16.0 Years. Stopped age 40 Years., 04/18/2022 Family History Diabetes mellitus type 2: Father and Brother. Hypertension: Father, Sister and Brother. Leukemia: Mother. Ovarian cancer: Sister. Primary malignant neoplasm of bladder: Father and Brother. Primary malignant neoplasm of female breast: Mother and Sister. Immunizations Vaccine Date Status Comments SARSCoV2 mRNA(exnysrgcq-yhgk-qvqcau) vac 08/18/2021 Recorded SARS-CoV-2 (COVID-19) mRNA BNT-162b2 vax 01/10/2021 Recorded influenza virus vaccine, inactivated 12/14/2020 Recorded SARS-CoV-2 (COVID-19) mRNA BNT-162b2 vax 06/18/2020 Recorded SARS-CoV-2 (COVID-19) mRNA BNT-162b2 vax 05/29/2020 Recorded 2022-04-18: TPV65 influenza virus vaccine, live, trivalent 12/30/2018 RecordedKettering Health MiamisburgComment on above:Result Comment: Electronically Signed By: FRANKLIN CORTEZ, Julian Smith\Date and Time Signed: 05/31/22 14:36 ESTRemtejasson 05-31-2022 Reminders From: Billie Curtis LPN To: N - Clinical; Sent: 05/31/2022 16:01:22 EST Show up: 04/16/2027 07:00:00 EST Subject: colonoscopy recall Due Date/Time: 05/17/2027 07:00:00 EST Reminder/Recall Patient is due for colonoscopy 05/17/27 due to history of colonic polyps.Normal [facility] BaltimorePathology Noteon 27-15-6464Dtudpruhd Note [id number]#1.00CD:127NoFirelands Regional Medical CenterOutside Colonoscopyon 20-81-7452Vmrdpnu Colonoscopy [id number]#1.00CD:127K[facility] Health MiamisburgPOINT OF CARE GLUCOSEon 48-24-1073Hgyfdbx [Mass/Vol]176 mg/dLCritically eqtv93-097AwtCorey HospitalComment on above:Performed By: #### POCGLUC ####[facility] [address] [place], [place] [address]WuMavis EstrellaPre-Certification Formon 13-44-4790Qkj-Certification Form [id number]#1.00CD:[address] [place], [place] [address]Facesheeton 29-42-7491Xpikiihzk [id number]#1.00CD:[address] [place], [place] [address]Consent for Procedure/Surgeryon 36-72-0043Fvguvps for Procedure/Surgery [id number]#1.00CD:[address] [place], [place] [address]Physician Referralon 21-24-0439Vxjhyxjgt Referral [id number]#1.00CD:[address] [place], [place] [address]Physician Referralon 15-83-0008Xshidtvzp Referral [id number]#1.00CD:[address] [place], [place] [address]MICROALBUMIN URINEon 22-38-1825Mdknzeb, Urine<3.0NormalNot Estab.The [facility] HospitalComment on above:Result Comment: Verified by repeat analysisPerformed By: #### MALBLC #### [facility] [address] [place] [address] Dr. Aga Bowser AUTO DIFFon 47-83-5472DJHU #0.0 103/ulNormal0.0-0.1The [facility] HospitalComment on above:Performed By: #### CBC #### [facility] [address] [place] [address] Dr. Aga Torresphils/100 WBC (Bld)0.4 %Normal0.2-2.0The [facility] Comment on above:Performed By: #### CBC #### [facility] [address] [place] [address] Dr. Aga Granados #0.1 103/ulNormal0.0-0.7The [facility] HospitalComment on above: Performed By: #### CBC #### [facility] [address] [address] [address] Aga Boyceosinophils/100 WBC (Bld)1.6 %Normal0.9-7.0The [facility] Comment on above:Performed By: #### CBC #### [facility] [address] [place] [address] Dr. Aga Boycerythrocyte distribution width (RBC) [Ratio]14.2 %Mrluwo07.0-15.0 The [facility] HospitalComment on above:Performed By: #### CBC #### [facility] [address] [place] [address] Dr. Aga EstrellaHematocrit (Bld) [Volume fraction]42.1 %Onnyrb19.0-48.0The [facility] HospitalComment on above:Performed By: #### CBC #### [facility] [address] [place] [address] Dr. Aga EstrellaHemoglobin (Bld) [Mass/Vol]13.1 g/tXHozqvw09.0-16.0The [facility] HospitalComment on above:Performed By: #### CBC #### [facility] [address] [place] [address] Dr. Aga Alva #0.02 10e3/ulNormal0.00-0.03The [facility] HospitalComment on above:Performed By: #### CBC #### [facility] [address] [place] [address] Dr. Aga EstrellaIG %0.4 %Normal0.0-0.5The [facility] HospitalComment on above: Performed By: #### CBC #### [facility] [address] [place] [address] Dr. Aga De Los SantosMPH #1.7 103/ulNormal1.2-3.8The [facility] HospitalComment on above:Performed By: #### CBC #### [facility] [address] [place] [address] Dr. Aga De Los Santosmphocytes/100 WBC (Bld)29.4 %Wbbghh57.5-60.0The [facility] HospitalComment on above:Performed By: #### CBC #### [facility] [address] [place] [address] Dr. Aga Murray DIFF REQNONormalThe [facility] HospitalComment on above: Performed By: #### CBC #### [facility] [address] [place] [address] Dr. Aga Hager (RBC) [Entitic mass]28.8 mnFkfjif32.7-34.0The [facility] HospitalComment on above:Performed By: #### CBC #### [facility] [address] [place] [address] Dr. Aga Hager (RBC) [Mass/Vol]31.1 g/lEDulsgf25.9-35.2The [facility] HospitalComment on above:Performed By: #### CBC #### [facility] [address] [place] [address] Dr. Aga Hager (RBC) [Entitic vol]92.5 cADqhtwz62.0-99.0The [facility] HospitalComment on above:Performed By: #### CBC #### [facility] [address] [place] [address] Dr. Aga Sandoval #0.4 103/ulNormal0.3-0.8The [facility] HospitalComment on above:Performed By: #### CBC #### [facility] [address] [place] [address] Dr. Aga Ogdenocytes/100 WBC (Bld)6.4 %Normal1.7-12.0The [facility] Comment on above:Performed By: #### CBC #### [facility] [address] [place] [address] Dr. Aga August #3.5 103/ulNormal1.4-6.5The [facility] HospitalComment on above:Performed By: #### CBC #### [facility] [address] [place] [address] Dr. Aga Chavirautrophils/100 WBC (Bld)61.8 %Sfimam04.0-75.0The [facility] HospitalComment on above:Performed By: #### CBC #### [facility] [address] [address] [address] Aga EstrellaPlatelet mean volume (Bld) [Entitic vol]10.2 fLNormal9.5-13.5The [facility] HospitalComment on above:Performed By: #### CBC #### [facility] [address] [place] [address] Dr. Aga EstrellaPLT195 103/hsZdmefa090-740Nmg [facility] HospitalComment on above: Performed By: #### CBC #### [facility] [address] [place] [address] Dr. Aga EstrellaRBC4.55 106/ulNormal4.20-5.40The [facility] HospitalComment on above:Performed By: #### CBC #### [facility] [address] [place] [address] Dr. Aga EstrellaWBC5.7 103/ulNormal4.0-11.0The [facility] HospitalComment on above: Performed By: #### CBC #### [facility] [address] [place] [address] Dr. Aga EstrellaGLYCOHEMOGLOBIN A1Con 85-76-9239UHV RECOMMENDATIONSEE BELOWNormal The [facility] HospitalComva medical center on above:Result Comment: ADA RECOMMENDED LIMIT 4.0 - 6.0 ADA THERAPEUTIC TARGET < 7.0 ACTION SUGGESTED > 7.0Performed By: #### A1C #### [facility] [address] [place] [address] Dr. Aga EstrellaGlucose [Mass/Vol]192 mg/dLNormalThe [facility] HospitalComva medical center on above:Performed By: #### A1C #### [facility] [address] [place] [address] Dr. Aga EstrellaHbA1c (Bld) [Mass fraction]8.3 %Critically high4.5-6.2The [facility] on above:Performed By: #### A1C #### [facility] [address] [place] [address] Dr. Aga EstrellaLIPID PROFILEon 61-31-2497IHUW-HDL RATIO NORMSBluffton HospitalComment on above:Result Comment: 3.3 - 4.4 LOW RISK 4.4 - 7.1 AVERAGE RISK 7.1 - 11.0 MODERATE RISK >11.0 HIGH RISKPerformed By: #### LIPID, CMP #### [facility] [address] [address] [address] Aga EstrellaCholesterol [Mass/Vol]123 mg/dLNormal<=200[facility] Comment on above:Performed By: #### LIPID, CMP #### [facility] [address] [address] [address] Aga EstrellaCholesterol in HDL [Mass/Vol]51 mg/jMXcfzrw59-57LajCorey HospitalComment on above:Performed By: #### LIPID, CMP #### [facility] [address] [place] [address] Dr. Aga EstrellaCholesterol in LDL [Mass/Vol]45.8 mg/dLMercy Health Anderson HospitalComment on above:Performed By: #### LIPID, CMP #### [facility] [address] [place] [address] Dr. Aga Reavesestermono.total/Cholesterol in HDL [Mass ratio]2.4 {ratio} NormalCorey HospitalComment on above:Performed By: #### LIPID, CMP #### [facility] [address] [place] [address] Dr. Aga Bellamy NORMAL> or = 60 mg/dl - LOW CARDIOVASCULAR RISK <40 mg/dl - HIGH CARDIOVASCULAR RISKMercy Health Anderson HospitalComment on above:Performed By: #### LIPID, CMP #### [facility] [address] [place] [address] Dr. Aga EstrellaLDL CALC NORMALSEE St. Charles HospitalComment on above:Result Comment: <100 mg/dl OPTIMAL 100 - 129 mg/dl NEAR OR ABOVE OPTIMAL 130 - 159 mg/dl BORDERLINE HIGH 160 - 189 mg/dl HIGH >190 mg/dl VERY HIGH Performed By: #### LIPID, CMP #### [facility] [address] [address] [address] Aga EstrellaTriglyceride [Mass/Vol]131 mg/dLNormal<=150The [facility] Comment on above:Performed By: #### LIPID, CMP #### [facility] [address] [address] [address] Aga EstrellaVLDL CALC26.2 mg/dLNormalThe [facility] HospitalComment on above: Performed By: #### LIPID, CMP #### [facility] [address] [address] [address] Aga EstrellaPROF 14(COMP METB)on 74-12-0959Ekdugmq [Mass/Vol]3.5 g/dLNormal 3.4-5.0The [facility] HospitalComment on above:Performed By: #### LIPID, CMP #### [facility] [address] [place] [address] Dr. Aga EstrellaAlbumin/Globulin [Mass ratio]1.0 {ratio}NormalThe [facility] HospitalComment on above:Performed By: #### LIPID, CMP #### [facility] [address] [address] [address] Aga Blake [Catalytic activity/Vol]147 U/LCritically vxnz54-145Shq [facility] HospitalComment on above:Performed By: #### LIPID, CMP #### [facility] [address] [place] [address] Dr. Aga Molina [Catalytic activity/Vol]42 U/CUscdtn36-91Ief [facility] HospitalComment on above:Performed By: #### LIPID, CMP #### [facility] [address] [address] [address] Aga Garza gap [Moles/Vol]12.2 mmol/LNormalThe [facility] Comment on above:Performed By: #### LIPID, CMP #### [facility] [address] [place] [address] Dr. Aga Liao [Catalytic activity/Vol]32 U/JUczboq34-35Icf [facility] HospitalComment on above:Performed By: #### LIPID, CMP #### [facility] [address] [address] [address] Aga EstrellaBilirubin [Mass/Vol]0.3 mg/dLNormal0.2-1.0The [facility] Comment on above:Performed By: #### LIPID, CMP #### [facility] [address] [address] [address] Aga EstrellaCalcium [Mass/Vol]9.1 mg/dLNormal8.5-10.1The [facility] Comment on above:Performed By: #### LIPID, CMP #### [facility] [address] [address] [address] Aga EstrellaChloride [Moles/Vol]103 mmol/TNbziyx47-931Acn [facility] Comment on above:Performed By: #### LIPID, CMP #### [facility] [address] [place] [address] Dr. Aga EstrellaCO2 [Moles/Vol]29.9 mmol/KSjbjgd92.0-32.0The [facility] Comment on above:Performed By: #### LIPID, CMP #### [facility] [address] [address] [address] Aga EstrellaCreatinine [Mass/Vol]0.65 mg/dLNormal0.55-1.02The [facility] HospitalComment on above:Performed By: #### LIPID, CMP #### [facility] [address] [address] [address] Aga BoyceGFR-AF MOZAMBICAN>60Normal>=60The [facility] HospitalComment on above:Performed By: #### LIPID, CMP #### [facility] [address] [address] [address] Aga BoyceGFR-NON AF MOZAMBICAN>60Normal>=60The [facility] HospitalComment on above:Performed By: #### LIPID, CMP #### [facility] [address] [address] [address] Aga EstrellaGlobulin (S) [Mass/Vol]3.6 g/dLNormalThe [facility] HospitalComment on above:Performed By: #### LIPID, CMP #### [facility] [address] [address] [address] Aga EstrellaGlucose [Mass/Vol]156 mg/dLCritically kacn70-420Vxx [facility] HospitalComment on above:Performed By: #### LIPID, CMP #### [facility] [address] [address] [address] gAa EstrellaPotassium [Moles/Vol]4.1 mmol/LNormal3.5-5.1The [facility] Comment on above:Performed By: #### LIPID, CMP #### [facility] [address] [address] [address] Aga EstrellaProtein [Mass/Vol]7.1 g/dLNormal6.4-8.2The [facility] Comment on above:Performed By: #### LIPID, CMP #### [facility] [address] [address] [address] Aga EstrellaSodium [Moles/Vol]141 mmol/JRubtrd556-937Quh [facility] Comment on above:Performed By: #### LIPID, CMP #### [facility] [address] [address] [address] Aga EstrellaUrea nitrogen [Mass/Vol]13.0 mg/dLNormal7.0-18.0The [facility] HospitalComment on above:Performed By: #### LIPID, CMP #### [facility] [address] [address] [address] Aga Melendrez nitrogen/Creatinine [Mass ratio]20.0 mg/mgNormalThe [facility] HospitalComment on above:Performed By: #### LIPID, CMP #### [facility] [address] [address] [address] Aga Flores RANDOM W/MICROSCOPICon 77-28-3478MNUFULHLBQUH SEENNormalNONE SEENCorey HospitalComment on above:Performed By: #### UAMIC ####[facility] [address] [address]Dr. Aga Estrella Bilirubin Ql (U)NegativeNormalNEGATIVEThe [facility] HospitalComment on above: Performed By: #### UAMIC ####[facility] [address] [place], [place] [address]Dr. Yilan ChangCASTNONE SEENNormalNONE SEENCorey HospitalComment on above:Performed By: #### UAMIC ####[facility] [address] [place], [place] [address]Dr. Yilan ChangClarity (U) CLEARNormalCLEARCorey HospitalComment on above:Performed By: #### UAMIC ####[facility] [address] [place], [place] [address]Dr. Yilan ChangColor (U)LT. YELLOWNormalYELLOWCorey HospitalComment on above: Performed By: #### UAMIC ####[facility] [address] [place], [place] [address]Dr. Yilan ChangCrystals LM Nom (Urine sed)NONE SEEN NormalNONE SEENCorey HospitalComment on above:Performed By: #### UAMIC ####[facility] [address] [place], [place] [address]Dr. Yilan ChangEpithelial cells LM Ql (Urine sed)RARENormalNONE SEEN /RAREThe [facility] HospitalComment on above:Performed By: #### UAMIC ####[facility] Zsjcgvtctb[address] [place], [place] [address]Dr. Yilan ChangGlucose Ql (U) NegativeNormalNEGATIVECorey HospitalComment on above:Performed By: #### UAMIC ####[facility] Alcrzlzrhc[address] [place], [place] [address]Dr. Yilan ChangHemoglobin Ql (U)NegativeNormalNEGATIVECorey Hospital Comment on above:Performed By: #### UAMIC ####[facility] Xlzzzoggsj[address] [place], [place] [address]Dr. Yilan ChangKetones Ql (U)NegativeNormal NEGATIVECorey HospitalComment on above:Performed By: #### UAMIC ####[facility] Gepkemdldy[address] [place], [place] [address]Dr. Yilan ChangLEUKOCYTESNegativeNormalNEGATIVEThe Gerlaw HospitalComment on above:Performed By: #### UAMIC ####[facility] Avkyarlyfv[address] [place], [place] [address]Dr. Yilan ChangMUCOUSNONE SEENNormalNONE SEENCorey HospitalComment on above:Performed By: #### UAMIC ####[facility] Eyomsypjiu[address] [place], [place] [address]Dr. Juhilan ChangNitrite Ql (U) NegativeNormalNEGATIVEThe Gerlaw HospitalComment on above:Performed By: #### UAMIC ####[facility] Slbhbpmiti[address] [place], [place] [address]Dr. Aga ChangpH (U)6.0 [pH]Normal5-9The [facility] HospitalComment on above:Performed By: #### UAMIC ####[facility] Rihvhxniey[address] [place], [place] [address]Dr. Aga ChangRBCNONE SEENAbnormal0-2The [facility] HospitalComment on above:Performed By: #### UAMIC ####[facility] Tjhtzircyj[address] [place], [place] [address]Dr. Yilan ChangSPEC GRAVITY 1.410Taepki5.005-<=1.025The [facility] HospitalComment on above:Performed By: #### UAMIC ####[facility] Grmyotzwmt[address] [place], [place] [address]Dr. Yichristian ChangUA PROTEINNegativeNormalNEGATIVE/ TRACEThe [facility] Hospital Comment on above:Performed By: #### UAMIC ####[facility] Gcjzlbnqsr[address] [place], [place] [address]Dr. Yilan ChangUrobilinogen Qn (U)0.2 {Kiya'U}/dLNormal0.2 - 1.0The [facility] HospitalComment on above:Performed By: #### UAMIC ####[facility] Khnkujtuti[address] [place], [place] [address]Dr. Yilan ChangWBC0-2AbnormalNONE SEENThe [facility] HospitalComment on above:Performed By: #### UAMIC ####[facility] [address] [address]Dr. Aga EstrellaCovid-19 PCR (CVDTBH)on 09-01-2021 SARS-CoV-2 (COVID-19) RNA JOSE+probe Ql (Unsp spec)Not detectedNormalNOT DETECTED The [facility] HospitalComva [facility] center on above:Result Comment: This test is not yet approved or cleared by the [place] FDA. When there are no FDA-approved or cleared tests available, and other criteria are met, FDA can make tests available under an emergency access mechanism called an Emergency Use Authorization (EUA). The EUA for this test is supported by the [place] of Health and Human Service's (HHS's) declaration [...] of clinical signs and symptoms consistent with SARS-CoV-2.Performed By: #### CVDTBH #### [facility] [address] [address] [address] Aga EstrellaGLYCOHEMOGLOBIN A1Con [id number] RECOMMENDATIONADA THERAPEUTIC TARGET 6.0 - 7.0 ACTION SUGGESTED > 7.0NoAultman Orrville HospitalComment on above:Performed By: #### A1C #### [facility] [address] [address] [address] Aga EstrellaGlucose [Mass/Vol]183 mg/dLNoAultman Orrville HospitalComva medical center on above:Performed By: #### A1C #### [facility] [address] [address] [address] Aga EstrellaHbA1c (Bld) [Mass fraction]8.0 %Critically high<=6.0[facility] on above:Performed By: #### A1C #### [facility] [address] [address] [address] Aga EstrellaPROF CHEM 8 (BAS METB)on 60-48-0575Mikoj gap [Moles/Vol]9.0 mmol/LNormalThe [facility] HospitalComment on above:Performed By: #### BMP #### [facility] [address] [address] [address] Aga EstrellaCalcium [Mass/Vol]8.6 mg/dLNormal8.5-10.1The [facility] Comment on above:Performed By: #### BMP #### [facility] [address] [address] [address] Aga EstrellaChloride [Moles/Vol]102 mmol/OSinjjs80-532Lbd [facility] Comment on above:Performed By: #### BMP #### [facility] [address] [place] [address] Dr. Aga EstrellaCO2 [Moles/Vol]32.7 mmol/LCritically high22.0-30.0The [facility] HospitalComment on above:Performed By: #### BMP #### [facility] [address] [address] [address] Aga EstrellaCreatinine [Mass/Vol]0.61 mg/dLNormal0.52-1.04The [facility] HospitalComment on above:Performed By: #### BMP #### [facility] [address] [address] [address] Aga BoyceGFR-AF MOZAMBICAN>60Normal>=60The [facility] HospitalComment on above:Performed By: #### BMP #### [facility] [address] [address] [address] Aga BoyceGFR-NON AF MOZAMBICAN>60Normal>=60The [facility] HospitalComment on above:Performed By: #### BMP #### [facility] [address] [address] [address] Aga EstrellaGlucose [Mass/Vol]187 mg/dLCritically zffa47-211Lso [facility] HospitalComment on above:Performed By: #### BMP #### [facility] [address] [address] [address] Aga EstrellaPotassium [Moles/Vol]3.7 mmol/LNormal3.4-5.0The [facility] Comment on above:Performed By: #### BMP #### [facility] [address] [address] [address] Aga EstrellaSodium [Moles/Vol]140 mmol/KXjpchh973-281Kjc [facility] Comment on above:Performed By: #### BMP #### [facility] [address] [address] [address] Aga EstrellaUrea nitrogen [Mass/Vol]13.0 mg/dLNormal7.0-18.0The [facility] HospitalComment on above:Performed By: #### BMP #### [facility] [address] [address] [address] Aga Melendrez nitrogen/Creatinine [Mass ratio]21.3 mg/mgNormalThe [facility] HospitalComment on above:Performed By: #### BMP #### [facility] [address] [address] [address] Aga Estrella Vital Signs Date TimeVital SignValuePerforming RakogrylwQmnywkyh82-87-8722 09:53-0400Body ohpyye009.4 Janiaisa Aichholz REGIONAL CLINICAL DIRECTOR-C Work Phone: [phone]10-14-2025 09:53-0400 Body mass index (BMI) [Ratio]38.3 kg/m2Lisa Aichholz REGIONAL CLINICAL DIRECTOR-C Work Phone: [phone]10-14-2025 09:53-0400 Body kqqebwkvgfq45.3 [degF]Rossana Aichholz REGIONAL CLINICAL DIRECTOR-C Work Phone: [phone]10-14-2025 09:53-0400 Body .13 kgLisa Aichholz REGIONAL CLINICAL DIRECTOR-C Work Phone: [phone]10-14-2025 09:53-0400 Diastolic blood coccqxfu08 mm[Hg]Rossana Aichholz REGIONAL CLINICAL DIRECTOR-C Work Phone: [facility]10-14-2025 09:53-0400 Heart rate72 /minRossana Macarioholz REGIONAL CLINICAL DIRECTOR-C Work Phone: [facility]10-14-2025 09:53-0400 Respiratory rate18 /minRossana Macarioholz REGIONAL CLINICAL DIRECTOR-C Work Phone: [facility]10-14-2025 09:53-0400 SaO2% (BldA) [Mass fraction]92 %Rossana Taylorz REGIONAL CLINICAL DIRECTOR-C Work Phone: [facility]10-14-2025 09:53-0400 Systolic blood qgqmudgj313 mm[Hg]Rossana Taylorleonides REGIONAL CLINICAL DIRECTOR-C Work Phone: [facility]08-06-2025 11:06-0400 Body eepbmb938.5 cmBeverley Siegel MD Work Phone: [facility] CenterIdvlaltfwq01-00-0000 11:06-0400Body mass index (BMI) [Ratio]36.4 kg/z7UvtbbmBeverley Siegel MD Work Phone: [facility] CenterKxybqflfqf53-95-2422 11:06-0400Body ekizkb30.27 kgBeverley Siegel MD Work Phone: [facility] CenterYuhdndpgdx64-99-7062 11:06-0400Diastolic blood yblmymop39 mm[Hg]Beverley Siegel MD Work Phone: [facility] CenterWvlvknkhwf48-76-6837 11:06-0400Heart rate75 /min Beverley Siegel MD Work Phone: [facility] CenterJnagprbado92-16-6727 11:06-0400Systolic blood qgzegphz822 mm[Hg]Beverley Siegel MD Work Phone: [facility] CenterHaplazjgcd43-59-3115 09:45-0400Body mass index (BMI) [Ratio]36.54 kg/m2Rossana Alicia REGIONAL CLINICAL DIRECTOR Work Phone: [facility] CenterDkjmiksoia81-44-3543 09:45-0400Body temperature 97.11 [degF]Rossana Macarioalfonzo REGIONAL CLINICAL DIRECTOR Work Phone: [facility] CenterQfnfakrlhl44-60-6587 09:45-0400Body zqeqho68.63 kgRossana Alicia REGIONAL CLINICAL DIRECTOR Work Phone: [facility] CenterEtlvtrrbcs10-05-3220 09:45-0400Diastolic blood hdvleotd59 mm[Hg]Rossana Macarioalfonzo REGIONAL CLINICAL DIRECTOR Work Phone: [facility] CenterQcqxhjxwpz50-77-6482 09:45-0400Heart rate75 /min Rossana Macarioalfonzo REGIONAL CLINICAL DIRECTOR Work Phone: [facility] CenterEljsaenswn20-84-8545 09:45-0400Respiratory rate18 /minRossana Taylorleonides REGIONAL CLINICAL DIRECTOR Work Phone: [facility] CenterSlsaaawois21-84-7028 09:45-8263VqR9% (BldA) [Mass fraction]95 %Rossana Macarioalfonzo REGIONAL CLINICAL DIRECTOR Work Phone: [facility] CenterFfgdlwwrco60-19-3600 09:45-0400Systolic blood bvlqwxxo755 mm[Hg]Rossnaa Macarioalfonzo REGIONAL CLINICAL DIRECTOR Work Phone: [facility] CenterTnsfexpcpu50-31-5347 14:36-0400Body dpdulr428.5 cmBeverley Siegel MD Work Phone: [facility] CenterMzefrvbsfk81-07-4518 14:36-0400Body mass index (BMI) [Ratio]37.13 kg/p0EvrpuaBeverley Siegel MD Work Phone: [facility] CenterEqznoyajtj59-29-4408 14:36-0400Body .08 kgBeverley Siegel MD Work Phone: [facility] CenterSdwogledny11-72-6439 14:36-0400Diastolic blood vazloygq87 mm[Hg]Beverley Siegel MD Work Phone: [facility] CenterXnkdxghcmw00-97-1693 14:36-0400Heart rate76 /min Beverley Siegel MD Work Phone: [facility] CenterGehhjyzmlm49-44-5010 14:36-0400Systolic blood ampeflrc037 mm[Hg]Beverley Siegel MD Work Phone: [facility] CenterTensvcfmjt62-20-7960 13:05-0400Body mass index (BMI) [Ratio]37.28 kg/m2Lisa Donovanhholz REGIONAL CLINICAL DIRECTOR Work Phone: [facility] CenterOhuydwernj38-74-8283 13:05-0400Body temperature 98.29 [degF]Rossana Maral REGIONAL CLINICAL DIRECTOR Work Phone: [facility] CenterDxwoxbghad67-01-2776 13:05-0400Body .44 kgLisa Donovanhholz REGIONAL CLINICAL DIRECTOR Work Phone: [facility] CenterHsnncnacjm81-82-0998 13:05-0400Diastolic blood ictdxvxs83 mm[Hg]Rossana Donovanhholz REGIONAL CLINICAL DIRECTOR Work Phone: [facility] CenterMoaxzcfqrg74-62-8474 13:05-0400Heart rate75 /min Rossana Renaldoholz REGIONAL CLINICAL DIRECTOR Work Phone: [facility] CenterIbdzkxttjg77-78-0788 13:05-0400Respiratory rate18 /minLisa Donovanhholz REGIONAL CLINICAL DIRECTOR Work Phone: [facility] CenterIvqxsirdth83-07-2240 13:05-9153BbY8% (BldA) [Mass fraction]93 %Rossana Brandonz REGIONAL CLINICAL DIRECTOR Work Phone: [facility] CenterXrtgzcolck78-65-2383 13:05-0400Systolic blood ohpogwwh911 mm[Hg]Rossana Donovanhholz REGIONAL CLINICAL DIRECTOR Work Phone: [facility] CenterKjxqbdhcnr15-34-8278 09:47-0400Body eikdsj641.5 Janiaisa Brandonz REGIONAL CLINICAL DIRECTOR Work Phone: [facility] CenterTxmfisppxu29-07-2699 09:47-0400Body mass index (BMI) [Ratio]37.2 kg/m2Lisa Donovanhholz REGIONAL CLINICAL DIRECTOR Work Phone: [facility] CenterHqzydeooll25-79-3120 09:47-0400Body temperature 98.4 [degF]Rossana Alicia REGIONAL CLINICAL DIRECTOR Work Phone: [facility] CenterFcplofohhx56-37-1108 09:47-0400Body .26 kgRossana Alicia REGIONAL CLINICAL DIRECTOR Work Phone: [facility] CenterMgobjdycyw26-77-3305 09:47-0400Diastolic blood crmbdadc12 mm[Hg]Rossana Alicia REGIONAL CLINICAL DIRECTOR Work Phone: [facility] CenterBdeelibcam33-55-5623 09:47-0400Heart rate74 /min Rossana Brandonz REGIONAL CLINICAL DIRECTOR Work Phone: [facility] CenterKqwduskmcd55-93-7919 09:47-0400Respiratory rate18 /minLisa Alicia REGIONAL CLINICAL DIRECTOR Work Phone: [facility] CenterGujivnmgvh08-15-1429 09:47-6224OvK5% (BldA) [Mass fraction]95 %Rossana Alicia REGIONAL CLINICAL DIRECTOR Work Phone: [facility] CenterQttqgjcvfs42-71-0955 09:47-0400Systolic blood xdbthizq876 mm[Hg]Rossana Alicia REGIONAL CLINICAL DIRECTOR Work Phone: [facility] CenterEcsopatvjo50-69-2322 14:56-0500Body nbtuek751.5 cmNabila Walkere DPM Work Phone: [facility] CenterQnlxgvohcl24-67-7281 14:56-0500Body mass index (BMI) [Ratio]36.4 kg/c6GnacuijNabila Walkere DPM Work Phone: [phone] CenterNzcuexyxxs98-05-2856 14:56-0500Body debjyz28.27 kgNabila Walkere DPM Work Phone: [facility] CenterNabpvfikub57-62-9564 09:50-0500Body luzirn498.5 Janiasameera Macarioalfonzo REGIONAL CLINICAL DIRECTOR Work Phone: [facility] CenterSclpvjappk85-33-2380 09:50-0500Body mass index (BMI) [Ratio]38.56 kg/m2Annsa Renaldorodgerz REGIONAL CLINICAL DIRECTOR Work Phone: [phone] [place], [place] [address]Yvqadplnmq45-32-8933 09:50-0500Body temperature 98.1 [degF]Rossana Renaldoholz REGIONAL CLINICAL DIRECTOR Work Phone: [facility] CenterBpqiknzind85-65-0198 09:50-0500Body icenmb18.62 kgLisa Donovanhholz REGIONAL CLINICAL DIRECTOR Work Phone: [facility] CenterEqjaavumpd40-61-3219 09:50-0500Diastolic blood okcxydpk35 mm[Hg]Rossana Renaldoholz REGIONAL CLINICAL DIRECTOR Work Phone: [phone] [place], [place] [address]Awyiyvwdai92-37-1545 09:50-0500Heart rate78 /min Rossana Donovanhholz REGIONAL CLINICAL DIRECTOR Work Phone: [phone] [place] [address]-12-2024 09:50-0500Respiratory rate18 /minLisa Renaldoholz REGIONAL CLINICAL DIRECTOR Work Phone: [phone] [place], [place] [address]Unbdqpamrq12-83-8949 09:50-8682RdY9% (BldA) [Mass fraction]94 %Rossana Renaldoholz REGIONAL CLINICAL DIRECTOR Work Phone: [phone] [place] [address]-12-2024 09:50-0500Systolic blood cymkdyvr671 mm[Hg]Rossana Renaldoholz REGIONAL CLINICAL DIRECTOR Work Phone: [phone] [place] [address]-11-2024 14:07-0400Body mass index (BMI) [Ratio]38.74 kg/m2Lisa Renaldoholz REGIONAL CLINICAL DIRECTOR Work Phone: [facility] CenterVtagmtyreg38-35-5002 14:07-0400Body temperature 97.5 [degF]Rossana Renaldoholz REGIONAL CLINICAL DIRECTOR Work Phone: [phone] [place], [place] [address]Gsdksoioeu94-09-1341 14:07-0400Body mentkl54.07 kgLisa Donovanhholz REGIONAL CLINICAL DIRECTOR Work Phone: [phone] [place] [address]-11-2024 14:07-0400Diastolic blood qkokrhgp22 mm[Hg]Rossana Donovanhholz REGIONAL CLINICAL DIRECTOR Work Phone: [phone]-[facility] HospitalN[facility] [address]Vwbdjqpcef84-24-6358 14:07-0400Heart rate70 /min Rossana Donovanhholz REGIONAL CLINICAL DIRECTOR Work Phone: [facility] CenterXhbzvfnsew06-74-2650 14:07-0400Respiratory rate20 /minRossana Maral REGIONAL CLINICAL DIRECTOR Work Phone: [facility] CenterPnzhzotwwl71-53-2294 14:07-6637PeX8% (BldA) [Mass fraction]94 %Rossana Maral REGIONAL CLINICAL DIRECTOR Work Phone: [facility]OC[facility] CenterBfvjbaywpe24-37-9907 14:07-0400Systolic blood vfbnrajo790 mm[Hg]Rossana Maral REGIONAL CLINICAL DIRECTOR Work Phone: [facility] CenterNooxivmulo23-19-4008 14:43-0500Blood Pressure LocationMichael NILL General Surgery Cjbqtzzk41-55-9643 14:43-0500Diastolic blood bkxpkudh91 mm[Hg]Julian NILL General Surgery Zzayteww63-43-0416 14:43-0500Heart rate 80 /minMichael NILL [facility] Bpjgpivw57-10-1145 14:43-0500 Respiratory rate16 /minMichael NILL General Surgery Xnwuplxt38-42-5495 14:43-0500Systolic blood cjwuwbup266 mm[Hg]Julian NILL General Surgery [facility] Encounters Encounter DateEncounter TypeCare ProviderFacilityStart: 01-06-2025 End: 29-56-9210xhgjpetsduIkqh J Aichholz REGIONAL CLINICAL DIRECTOR-C Work Phone: [facility] Work Phone: Start: 01-06-2025 End: 68-22-8387Aisyvcd encounter procedureRossana Alicia REGIONAL CLINICAL DIRECTOR-C-[facility] Work Phone: Start: 13-29-5824Xlascyg encounter procedureRossana Alicia REGIONAL CLINICAL DIRECTOR-C Work Phone: [phone] [address]tart: 10-29-2024 End: 33-24-3802Tzikasjordana Siegel MD Work Phone: noms Tobi OtolaryngologyStart: 10-29-2024 End: 01-95-5749Fgacqs Ayala Siegel MD Work Phone: n[facility] Tobi OtolaryngologyStart: 10-29-2024 End: 68-60-8101Ynsfgc outpatient visit 15 minutesBeverley Siegel MD Work Phone: noms Tobi OtolaryngologyComment on above:Neck mass (Primary Dx)Start: 10-29-2024 End: 78-87-8853gvukvpmmmnHPYMRE H TIMMISNot AvailableStart: 10-09-2024 End: 04-38-0357Mibvvzov ReferredBEVERLEY SIEGEL MD-LAB [facility] Start: 10-09-2024 End: 28-15-7747urbimtcyudSbpvck H Timmis [facility] Work Phone: Start: 10-06-2024 End: 83-98-8813Ppfofk flowsheetRossana Alicia REGIONAL CLINICAL DIRECTOR Work Phone: noms CW FMStart: 10-06-2024 End: 66-12-6186Bvrylp flowsheetLisa Manhholz REGIONAL CLINICAL DIRECTOR Work Phone: noms CWM FMStart: 10-06-2024 End: 53-69-4207Pkjboc outpatient visit 25 minutesLisa Donovanhholz REGIONAL CLINICAL DIRECTOR Work Phone: noms CW FMComment on above:Type 2 diabetes mellitus without complication, without long-term current use of insulin (HCC) (Primary Dx); Obstructive sleep apnea syndrome; Essential (primary) hypertension ; Morbid (severe) obesity due to excess calories ([facility]-HCC); Mixed hyperlipidemia ; Environmental and seasonal allergies; Moderate persistent asthma without complication ([facility]); Primary hypertension ; Gastroesophageal reflux disease, unspecified whether esophagitis present; Enlarged lymph node in neckStart: 10-06-2024 End: 67-62-1665fgqalbywkoZTDZ AICHHOLZNot AvailableStart: 10-01-2024 End: 89-30-3007Otxtthvbn Result EncounterGeneric External Data ProviderNOMS External Department UnsolicitedStart: 10-01-2024 End: 72-31-8706Iieyzayfn Result EncounterGeneric External Data ProviderNOMS External Department UnsolicitedStart: 09-23-2024 End: 38-20-3216Ktkhst outpatient new 45 minutesBeverley Siegel MD Work Phone: NOM[facility] CI ENTComment on above:Neck massStart: 09-23-2024 End: 80-55-7884dlujmhccosTARCIGSerenity Artis AvailableStart: 09-23-2024 End: 00-77-8014Fpcdyp Ayala Siegel MD Work Phone: NO[facility] CI ENTStart: 09-23-2024 End: 97-43-7934Kjtevv Ayala Siegel MD Work Phone: noms CI ENTStart: 09-18-2024 End: 46-09-0607Dvrtiv OnlyRossana Alicia REGIONAL CLINICAL DIRECTOR Work Phone: [facility] CWM FMComment on above:Enlarged lymph node in neck (Primary Dx)Start: 09-01-2024 End: 88-32-3239Xcuedl flowsheetRossana Alicia REGIONAL CLINICAL DIRECTOR Work Phone: N[facility] CWM FMStart: 09-01-2024 End: 75-56-8774Bwmbwc flowsheetLisa Taylorz REGIONAL CLINICAL DIRECTOR Work Phone: N[facility] CWM FMStart: 09-01-2024 End: 93-64-5701frbencobueBKPN AICHHOLZNot AvailableStart: 09-01-2024 End: 79-12-8475Undjyj outpatient visit 15 minutesLisa Alicia REGIONAL CLINICAL DIRECTOR Work Phone: [facility] CWM FMComment on above:Environmental and seasonal allergies (Primary Dx); Morbid (severe) obesity due to excess calories (CMS/HCC)Start: 08-04-2024 End: 11-68-5023VbbugqBzuu Aichholz REGIONAL CLINICAL DIRECTOR Work Phone: noms CWM FMComment on above:Type 2 diabetes mellitus without complication, without long-term current use of insulin (Primary Dx) Start: 07-17-2024 End: 87-57-3708Lhkbzrkyr Result EncounterLisa Renaldoholz REGIONAL CLINICAL DIRECTOR Work Phone: noms External Department UnsolicitedStart: 07-17-2024 End: 47-11-2110Orwrujekh Result EncounterLisa Aichholz REGIONAL CLINICAL DIRECTOR Work Phone: noms External Department UnsolicitedStart: 06-21-2024 End: 20-60-7642Mkspopcok Result EncounterLisa Donovanhholz REGIONAL CLINICAL DIRECTOR Work Phone: noms External Department UnsolicitedStart: 06-21-2024 End: 59-19-0565Wvgzkqxiq Result EncounterLisa Aichholz REGIONAL CLINICAL DIRECTOR Work Phone: noms External Department UnsolicitedStart: 06-12-2024 End: 20-49-4548Rsjtjl flowsheetLisa Aichholz REGIONAL CLINICAL DIRECTOR Work Phone: noms CWM FMStart: 06-12-2024 End: 58-86-7128Ahpcgp flowsheetLisa Aichholz REGIONAL CLINICAL DIRECTOR Work Phone: noms CWM FMStart: 06-12-2024 End: 79-75-5931Gbvaxgx encounter procedureLisa Donovanhholz REGIONAL CLINICAL DIRECTOR Work Phone: noms CWM FMComment on above:Encounter for annual wellness visit (AWV) in Medicare patient (Primary Dx); Type 2 diabetes mellitus with diabetic peripheral angiopathy without gangrene (CMS/HCC); Morbid (severe) obesity due to excess calories (CMS/HCC); Essential (primary) hypertension (CMS/HCC); Body mass index (BMI) 36.0-36.9, adult; Obstructive sleep apnea syndrome; Pulmonary emphysema, unspecified emphysema type (CMS/[facility]); Other emphysema ([facility]); Type 2 diabetes mellitus without complication, without long-term current use of insulin ([facility]); Current mild episode of major depressive disorder without prior episode ([facility]) ([facility]); Encounter for screening mammogram for malignant neoplasm of breast; Primary hypertension ([facility]); Mixed hyperlipidemia ([facility]); Environmental and seasonal allergies; Moderate persistent asthma without complication ([facility]); Gastroesophageal reflux disease, unspecified whether esophagitis presentStart: 06-12-2024 End: 83-61-4013rpudfxmovrRFUX BRANDONZNot AvailableStart: 2024 End: 09-62-7964BbqtlhGjhx Aichholz REGIONAL CLINICAL DIRECTOR Work Phone: [facility] FMComment on above:Type 2 diabetes mellitus without complication, without long-term current use of insulin ([facility]) (P rimary Dx)Start: 04-03-2024 End: 52-39-0194qxxyfoumyxGEBDEFF W CLARKENot AvailableStart: 04-03-2024 End: 81-04-7427Uikatq outpatient visit 25 minutesNabila Drummond DPM Work Phone: noms PODIATRYComment on above:Pain of toe of left foot (Primary Dx); Nail dystrophy; Capsulitis of toe, left; Swelling of toe of left footStart: 04-03-2024 End: 85-98-9698jlkqzkfkdmPXFSAPXLenora Ross AvailableStart: 04-03-2024 End: 03-15-4436Zpjypzjordana Drummond DPM Work Phone: noms PODIATRYStart: 04-03-2024 End: 18-89-7909Abpbdyjordana Drummond DPM Work Phone: noms PODIATRYStart: 03-18-2024 End: 91-46-6658Zaiukhpmz Result EncounterLisa Maral REGIONAL CLINICAL DIRECTOR Work Phone: noms External Department UnsolicitedStart: 03-18-2024 End: 17-95-1592Vwhibuidq Result EncounterLisa Aichholz REGIONAL CLINICAL DIRECTOR Work Phone: noms External Department UnsolicitedStart: 03-06-2024 End: 55-86-7049Cvypvb flowsShirley Macarioholz REGIONAL CLINICAL DIRECTOR Work Phone: noms CWM FMStart: 03-06-2024 End: 04-59-7603Lgxycd flowsShirley Macarioholz REGIONAL CLINICAL DIRECTOR Work Phone: noms CWM FMStart: 03-06-2024 End: 91-75-7071Myzxsi outpatient visit 25 minutesLisa Taylorz REGIONAL CLINICAL DIRECTOR Work Phone: noms CWM FMComment on above:Type 2 diabetes mellitus without complication, without long-term current use of insulin (CMS/HCC) (P rimary Dx); Obstructive sleep apnea syndrome; Pulmonary emphysema, unspecified emphysema type (CMS/HCC); Moderate persistent asthma without complication (CMS/HCC); Essential hypertension; Obesity (BMI 30-39.9); Current mild episode of major depressive disorder without prior episode (HCC) (CMS/HCC); Mixed hyperlipidemia (CMS/HCC); Primary hypertension (CMS/HCC); Environmental and seasonal allergies; Gastroesophageal reflux disease, unspecified whether esophagitis present; Hypoglycemia; Needs flu shotStart: 03-06-2024 End: 45-35-1571xbgqgqwfqsMWWE RENALDOHOLCHANDANot AvailableStart: 02-26-2024 End: 76-17-5832WbjjwhXyzy Aichholz REGIONAL CLINICAL DIRECTOR Work Phone: noms CWM FMComment on above:Moderate persistent asthma without complication (CMS/HCC); Type 2 diabetes mellitus without complication, without long-term current use of insulin (CMS/HCC)Start: 01-17-2024 End: 83-08-0609TyrskxEckd Aichholz REGIONAL CLINICAL DIRECTOR Work Phone: NOMS CWM FMComment on above:Primary hypertension (CMS/HCC)Start: 12-25-2023 End: 89-28-6297ByerbfXlvq Aichholz REGIONAL CLINICAL DIRECTOR Work Phone: NOLP CWM FMComment on above:Moderate persistent asthma without complication (CMS/HCC)Start: 12-18-2023 End: 37-75-1449EwrmmaZhml Aichholleonides REGIONAL CLINICAL DIRECTOR Work Phone: noms CWM FMComment on above:Type 2 diabetes mellitus without complication, without long-term current use of insulin (CMS/HCC) (P rimary Dx)Start: 12-14-2023 End: 39-37-9868Cksmgcoye Result EncounterLisa Renaldoholz REGIONAL CLINICAL DIRECTOR Work Phone: noms External Department UnsolicitedStart: 12-14-2023 End: 87-75-9371Rqzqiqbkz Result EncounterLisa Renaldoholz REGIONAL CLINICAL DIRECTOR Work Phone: noms External Department UnsolicitedStart: 12-05-2023 End: 44-94-4402Vqjisp flowsShirley Macarioholz REGIONAL CLINICAL DIRECTOR Work Phone: noms CWM FMStart: 12-05-2023 End: 17-50-2549Hmoizd flowsheetRossana Macarioholz REGIONAL CLINICAL DIRECTOR Work Phone: noms CWM FMStart: 12-05-2023 End: 43-07-8594Kizhvo outpatient visit 25 minutesRossana Macariorodgerleonides REGIONAL CLINICAL DIRECTOR Work Phone: noms CWM FMComment on above:Type 2 diabetes mellitus without complication, without long-term current use of insulin (CMS/HCC) (P rimary Dx); Type 2 diabetes mellitus with diabetic peripheral angiopathy without gangrene (CMS/HCC); Essential hypertension; Mixed hyperlipidemia (CMS/HCC); Primary hypertension (CMS/HCC); Environmental and seasonal allergies; Chronic sinusitis of both maxillary sinuses; Moderate persistent asthma without complication (CMS/HCC); Gastroesophageal reflux disease, unspecified whether esophagitis presentStart: 12-05-2023 End: 08-26-8189gmkzogremoDGQR DONOVANHHOLZNot AvailableStart: 10-02-2023 End: 68-37-9487Ylyncznjg Result EncounterLisa Renaldoholz REGIONAL CLINICAL DIRECTOR Work Phone: noms External Department UnsolicitedStart: 10-02-2023 End: 99-79-6070Gbxdgqlgs Result EncounterLisa Brandonz REGIONAL CLINICAL DIRECTOR Work Phone: noms External Department UnsolicitedStart: 06-29-2023 End: 11-45-3781Mitcdqqac Result EncounterLisa Renaldoholz REGIONAL CLINICAL DIRECTOR Work Phone: noms External Department UnsolicitedStart: 06-29-2023 End: 86-11-8883Zdgilcajz Result EncounterLisa Renaldoholz REGIONAL CLINICAL DIRECTOR Work Phone: noms External Department UnsolicitedStart: 05-08-2023 Clinisync Result EncounterLisa Renaldoholz REGIONAL CLINICAL DIRECTOR Work Phone: noms External Department UnsolicitedStart: 05-08-2023 Clinisync Result EncounterLisa Brandonz REGIONAL CLINICAL DIRECTOR Work Phone: noms External Department UnsolicitedStart: 04-10-2023 Patient encounter procedureLisa Renaldoholz REGIONAL CLINICAL DIRECTOR Work Phone: noms HealthcareStart: 06-07-2022 End: 79-79-2483fzthatmkwoONN ROSSANA DONOVANMatthewALFONZOFacility:W4Xuiqk: 05-31-2022 End: 98-15-9841ubnbkfxwmtRagsdpt R NILLFacility: [place]vueStart: 05-31-2022 End: 95-14-2412Mgdnrmn encounter procedureMichael R NILL General Surgery Nill/Said Shreya Start: 51-54-1608cgluacyqrdUruvrbr NILLFacility: [place]vueStart: 05-17-2022 End: 67-97-3935ladnvblzcxAtrkwft R NILLFacility::[id number]: 04-18-2022 End: 63-33-6332pptanoaapuHigbmly R NILLFacility: [place]vueStart: 04-18-2022 End: 22-43-7555Lkrxrok encounter procedureMichael R NILL General Surgery Nill/Said Shreya Start: 24-90-4758sprlqqolokVqcakkx R NILLFacility:GS [place]walkStart: 12-21-2021 End: 29-55-1947vtpuatolsrBWR ROSSANA AICHHOLZFacility:D2Onqgg: 09-01-2021 End: 10-69-0147kgrcikxhbrRGB ROSSANA AICHHOLZFacility:W6Oayqj: 07-14-2021 End: 82-51-7372vtyuxymonpLEZ ROSSANA AICHHOLZFacility:H1 Procedures DateProcedureProcedure DetailPerforming ClinicianStart: 00-78-4776Sbwanukfuw glycosylated o4cUxtv Aichholz REGIONAL CLINICAL DIRECTOR Work Phone: Start: 71-28-2698UX SOFT TISSUE HEAD AND NECKGeneric External Data ProviderStart: 68-95-2146ZZ TOMOSYNTHESIS SCREENING BILisa Aichholz REGIONAL CLINICAL DIRECTOR Work Phone: Start: 36-61-8150OgxfgovytidPkzh Aichholz REGIONAL CLINICAL DIRECTOR Work Phone: Start: 51-50-1002VKD HEMOGLOBIN D8ZBvpm Aichholz REGIONAL CLINICAL DIRECTOR Work Phone: Start: 93-89-1953Niiht foot complete minimum 3 views Nabila Drummond DPM Work Phone: Start: 05-42-5512GJJ HEMOGLOBIN K7UCwnq Aichholz REGIONAL CLINICAL DIRECTOR Work Phone: Start: 30-79-0811RBC CBC WITH AUTO DIFFLisa Aichholz REGIONAL CLINICAL DIRECTOR Work Phone: Start: 63-82-9238AK SINUS WO CONLisa Aichholz REGIONAL CLINICAL DIRECTOR Work Phone: Start: 71-22-6041BN TOMOSYNTHESIS SCREENING BILisa Aichholz REGIONAL CLINICAL DIRECTOR Work Phone: Start: 76-24-0677BbpwrggsjciSpjf Aichholz REGIONAL CLINICAL DIRECTOR Work Phone: Start: 85-80-4047BNS HEMOGLOBIN N7UAini Maral REGIONAL CLINICAL DIRECTOR Work Phone: Start: 72-28-1422HwhuohvapkkFdnr Maral REGIONAL CLINICAL DIRECTOR Work Phone: Start: 82-07-3275MofvmdwhcbiCygk Maral REGIONAL CLINICAL DIRECTOR Work Phone: Start: 10-92-2190NenibptvvftUmtztrb NILL Start: 25-91-5513ImgwlvfdswfnkxfnlnkarbazdgZouazzr NILL Start: 72-74-7409OubhbmvodcmthmqJzudhug NILL Start: 51-19-5570EfkzashfxshFhagbag NILL Start: 60-19-0345Zcibwn and adenoid structure (body structure)Julian NILL Dilation and curettageMichael NILL EsophagogastroduodenoscopyMichael NILL Excision of lipomaMichael NILL OophorectomyMichael NILL Plan of Treatment DateCare ActivityDetailAuthorStart: 19-71-0868Ybxlshshl for malignant neoplasm of colonNOMS HealthcareStart: 87-19-3225Bxefbyrp screeningDiabetes: Retinopathy ScreeningNOMS HealthcareStart: 71-02-8822Cnwgfqpd screeningDiabetes: Retinopathy ScreeningNOMS HealthcareStart: 90-85-0942Ibwddkup screeningDiabetes: Retinopathy ScreeningNOMS HealthcareStart: 55-80-9096Kneedyqcb for malignant neoplasm of breastMammogramNOMS HealthcareStart: 06-16-2025 End: 76-08-3928Uieitxw encounter udzfcmmlz39/24/2026 10:00 AM EDT Office Visit [facility] [address] [place] [address] Rossana Alicia, AYDEE [address] [place] [address] [facility] FMStart: 03-20-2026Medicare Annual Wellness (AWV) Medicare Annual Wellness (AWV)NOM HealthcareStart: 02-11-2025 End: 30-34-1060Bfojoes encounter /19/2025 11:10 AM EST Office Visit [facility] [place] [facility] [address] [facility] [address] [place] [address] Beverley Siegel MD [address] [facility] [address] [place] [address] NOM [place] OtolaryngologyStart: 01-06-2025 Hemoglobin A1c measurementDiabetes: Hemoglobin N6BATRQ HealthcareStart: 01-06-2025 End: 23-92-8932Maxadnf encounter axhufvfim36/14/2025 9:40 AM EDT Office Visit [facility] FM [address] [place] [address] Rossana Alicia, AYDEE [address] [place] [address] [facility] FMStart: 07-49-6821Uaskq screening for protein Diabetes: Urine Protein ScreeningNOKS HealthcareStart: 29-18-3711Vdewllnqs vaccinationInfluenza Vaccine (#1)NOM HealthcareStart: 10-29-2024 End: 22-24-0645Eolbsua encounter procedureNOMS CI ENTComment on above:Arrived Start: 10-06-2024 End: 40-89-6896Pugykkn encounter procedureNOMS CWM FMComment on above: Obstructive sleep apnea syndrome (Primary Dx); Essential (primary) hypertension ; Type 2 diabetes mellitus without complication, without long-term current use of insulin (HCC); Morbid (severe) obesity due to excess calories (CMS-HCC)Start: 09-23-2024 End: 46-73-9532Csoodfh encounter cpijjeqra12/01/2025 2:40 PM EDT Office Visit [facility] [address] [facility] [address] [place] [address] Beverley Siegel MD [address] [facility] [address] [place] [address] Enlarged lymph node in neckNOMS CI ENTComment on above:Enlarged lymph node in neckStart: 44-04-9335Tiuzcuqzwo A1c measurement Diabetes: Hemoglobin B9KUPCCSt. Joseph Medical CenterStart: 35-98-9587Smneujaig for malignant neoplasm of breastMammogramDAVIS [facility] HealthcareStart: 43-26-9975Unlzbhunvy A1c measurementDiabetes: Hemoglobin Z8RNZLMSt. Joseph Medical CenterStart: 06-12-2024 End: 47-45-0528Nunuzvtdqd A1c/Hemoglobin.total in BloodHemoglobin A1c Lab Routine Type 2 diabetes mellitus without complication, without long-term current use of insulin (CMS/HCC) Expected: 06/12/2024 (Approximate), Expires: 06/12/2025 NOMS HealthcareComment on above:Expected: 06/12/2024 (Approximate), Expires: 06/12/2025Start: 06-12-2024 End: 65-24-9004HS Breast - bilateral ScreeningBilateral screening mammogram Imaging Routine Encounter for screening mammogram for malignant neoplasm of breast Expected: 06/12/2024 (Approximate), Expires: 08/12/2025[facility] Work Phone: Comment on above:Expected: 06/12/2024 (Approximate), Expires: 08/12/2025Start: 06-12-2024 End: 37-81-0839Csovdfe encounter procedureNOOKEENE [facility] FMComment on above: Obstructive sleep apnea syndrome (Primary Dx); Type 2 diabetes mellitus with diabetic peripheral angiopathy without gangrene (CMS/HCC); Morbid (severe) obesity due to excess calories (CMS/HCC); Essential (primary) hypertension (CMS/HCC); Body mass index (BMI) 36.0-36.9, adult; Pulmonary emphysema, unspecified emphysema type (CMS/HCC); Other emphysema ([facility]); Type 2 diabetes mellitus without complication, without long-term current use of insulin ([facility]/HCC); Current mild episode of major depressive disorder without prior episode (HCC) ([facility]); Encounter for annual wellness visit (AWV) in Medicare patient; Encounter for screening mammogram for malignant neoplasm of breastStart: 04-29-2024 End: 94-81-8529Ypyyxpg encounter eqfexwskf36/04/2025 2:15 PM EST Office Visit [facility] [address] [place] [address] Nabila Drummond, WINTER [address] [place] [address] [facility] PODIATRYStart: 01-16-2025Medicare Annual Wellness (AWV)Medicare Annual Wellness (AWV)[facility] HealthcareStart: 04-03-2024 End: 93-72-7658Pcgqque encounter fqidmpwhe56/09/2025 3:00 PM EST Office Visit [facility] [address] [place] [address] Nabila Drummond, DPJulia [address] [place] [address] ArrivedNOMS PODIATRYComment on above:ArrivedStart: 03-06-2024 End: 73-68-1327Cscabbhlyy A1c/Hemoglobin.total in BloodHemoglobin A1c Lab Routine Type 2 diabetes mellitus without complication, without long-term current use of insulin ([facility]) Expected: 03/06/2024 (Approximate), Expires: 03/06/2025 [facility] Work Phone: Comment on above:Expected: 03/06/2024 (Approximate), Expires: 03/06/2025Start: 03-06-2024 End: 28-46-8223Gxvcrau encounter procedureNOMS [facility] FMComment on above: Obstructive sleep apnea syndrome (Primary Dx); Pulmonary emphysema, unspecified emphysema type ([facility]/HCC); Moderate persistent asthma without complication ([facility]); Essential hypertension; Obesity (BMI 30-39.9); Type 2 diabetes mellitus without complication, without long-term current use of insulin ([facility]); Current mild episode of major depressive disorder without prior episode ([facility]) ([facility]); Mixed hyperlipidemia ([facility]/HCC); Primary hypertension ([facility]); Environmental and seasonal allergies; Gastroesophageal reflux disease, unspecified whether esophagitis presentStart: 35-37-2212Rqacg screening for proteinDiabetes: Urine Protein ScreeningDAVIS HOS[facility] AND [facility] HealthcareStart: 16-55-1889Iajoktcvf vaccinationInfluenza Vaccine (#1)[facility] HealthcareComment on above:Postponed from 11/25/2023 (Patient Does Not Have Time)Start: 47-38-7216Ungbqlhh screeningDiabetes: Retinopathy ScreeningDAVIS HOSPITAL AND [facility]ICAL [facility] HealthcareStart: 12-05-2023 End: 61-32-0012HJX W Auto Differential panel - BloodCBC and differential Lab Routine Type 2 diabetes mellitus without complication, without long-term current use of insulin ([facility]) Expected: 12/05/2023 (Approximate), Expires: 12/04/2024[facility] Work Phone: Comment on above:Expected: 12/05/2023 (Approximate), Expires: 12/04/2024Start: 12-05-2023 End: 43-17-6454Cbwjybqtsdlyo metabolic 2000 panel - Serum or PlasmaComprehensive metabolic panel Lab Routine Essential hypertension Type 2 diabetes mellitus without complication, without long-term current use of insulin ([facility]) Mixed hyperlipidemia ([facility]) Expected: 12/05/2023 (Approximate), Expires: 12/04/2024 NOMS HealthcareComment on above:Expected: 12/05/2023 (Approximate), Expires: 12/04/2024Start: 12-05-2023 End: 81-19-9167Ipkruedqhd A1c/Hemoglobin.total in BloodHemoglobin A1c Lab Routine Type 2 diabetes mellitus without complication, without long-term current use of insulin ([facility]) Expected: 12/05/2023 (Approximate), Expires: 12/04/2024 NOMS HealthcareComment on above:Expected: 12/05/2023 (Approximate), Expires: 12/04/2024Start: 12-05-2023 End: 24-19-2985Ixymf 1996 panel - Serum or PlasmaLipid panel Lab Routine Type 2 diabetes mellitus without complication, without long-term current use of insulin (CMS/HCC) Mixed hyperlipidemia (CMS/HCC) Expected: 12/05/2023 (Approximate), Expires: 12/04/2024NOKS HealthcareComment on above:Expected: 12/05/2023 (Approximate), Expires: 12/04/2024Start: 12-05-2023 End: 52-72-4931Roqabbzwpnxq/Creatinine panel in random UrineMicroalbumin / creatinine, urine ratio Lab Routine Essential hypertension Type 2 diabetes mellitus without complication, without long-term current use of insulin (CMS/HCC) Expected: 12/05/2023 (Approximate), Expires: 12/04/2024[facility] Healthcare Comment on above:Expected: 12/05/2023 (Approximate), Expires: 12/04/2024Start: 12-05-2023 End: 01-65-3556Pqykoue encounter boukmuolc09/11/2024 2:00 PM EDT Office Visit [facility] [address] [place] [address] Rossana Alicia NP [address] [place] [address] Essential hypertension (Primary Dx); Type 2 diabetes mellitus with diabetic peripheral angiopathy without gangrene (CMS/HCC); Type 2 diabetes mellitus without complication, without long-term currentuse of insulin (CMS/HCC); Mixed hyperlipidemia (CMS/HCC)[facility] FMComment on above:Essential hypertension (Primary Dx); Type 2 diabetes mellitus with diabetic peripheral angiopathy without gangrene (CMS/HCC); Type 2 diabetes mellitus without complication, without long-term current use of insulin (CMS/HCC); Mixed hyperlipidemia (CMS/HCC)Start: 12-05-2023 End: 55-64-7375Egvdjajved complete panel - UrineUrinalysis with reflex microscopic (clean catch) Lab Routine Essential hypertension Type 2 diabetes mellitus without complication, without long-term current use of insulin ([facility]) Expected: 12/05/2023 (Approximate), Expires: 12/04/2024[facility] Comment on above:Expected: 12/05/2023 (Approximate), Expires: 12/04/2024Start: 28-22-5046Jpjgfifsj vaccinationInfluenza Vaccine (#1)[facility] HealthcareStart: 24-42-2828Sydmuqcvxh A1c measurementDiabetes: Hemoglobin H5QEUSP Healthcare Start: 12-35-0321Vytagxgnf for malignant neoplasm of breastMammogramNOKS HealthcareStart: 05-14-2023 End: 09-39-1068Opiwhdh encounter dnszytxbs11/19/2024 9:40 AM EST Office Visit [facility] [address] [place] [address] Rossana Alicia NP [address] [place] [address] [facility] FMStart: 91-54-4889Xhuhwxakpf A1c measurement Diabetes: Hemoglobin O2DZFNF HealthcareStart: 60-17-7484Dfegriynu vaccination Influenza Vaccine (#1)[facility] HealthcareStart: 89-66-0391Ilufknbcg for malignant neoplasm of colonNOKS HealthcareComprehensive metabolic 2000 panel - Serum or PlasmaUniversity Hospitals Beachwood Medical CenterXR Hip - left 2 ViewsHCA [facility] Immunizations Immunization DateImmunizationNotesCare IeuwqwwcKayqglgi83-91-7290Epklbmvo trivalent influenza vaccine, adjuvanted, preservative freeRossana Alicia REGIONAL CLINICAL DIRECTOR Work Phone: [facility] CenterHtkljdyuar50-58-6081nqjalblgi virus vaccine, unspecified formulationBeverley Siegel MD Work Phone: NOCameron Regional Medical CenterVtbxqctxxm13-26-8545Efmkub Quinonez Cap SARS-CoV-2 VaccinationLisa Maral REGIONAL CLINICAL DIRECTOR Work Phone: [facility] CenterKulgwfapfr87-12-9078FMMX-HiB-3 mRNA (gsxukfkeafo-amra-gkxcepi) vaccineMichael NILL General Surgery Hwiowlbo11-10-0171MWBU-AwW-8 (COVID-19) mRNA BNT-162b2 vaxMichael NILL General Surgery Aqsjoceb95-02-1566hsmwilmel virus vaccine, unspecified formulationMichael NILL General Surgery Zctpzowa84-86-0610Rxihbizbz, Seasonal, Quadrivalent, AdjuvantedLisa Aichholz REGIONAL CLINICAL DIRECTOR Work Phone: [facility] CenterFuqjsfurzh00-08-4066WFLB-XtT-9 (COVID-19) mRNA BNT-162b2 vaxMichael NILL General Surgery Pskpllqe33-62-8697QXOD-UzB-9 (COVID-19) mRNA BNT-162b2 vaxMichael NILL General Surgery BellevueComment on above:Result Comment: 2022-04-18: CTI9190-36-2428evdjwpavj virus vaccine, live, attenuated, for intranasal useMichael NILL [facility] Payers DatePayer CategoryPayerPolicy [id number]-pay2023MedicaidAETNA MEDICARE ADVANTAGE [id number] Health InsuranceAETNA BETTER HEALTH [employer]ALTH [id number] 2021-Present [address] [address] [place], [place] [id number] [id number] [id number] 2.16.840.1.202283.3.579.2.727 [id number] 2.16.840.1.024480.3.57[id number] 2.840.1.510799.3.57[id number] 2.840.1.083055.3.57[id number] 2.16.840.1.152386.3.57[id number] 2..840.1.730817.3.57[id number] 2.840.1.552276.3.57[id number] 2.16840.1.264718.3.57[id number] 2.16840.1.933861.3.57[id number] 2.16.840.1.945128.3.57[id number] 2.16840.1.421634.3.57[id number] 2.16.840.1.138880.3.57[id number] 2.16.840.1.341714.3.57[id number] 2.16.840.1.791557.3.57[id number] 2.16.840.1.753377.3.57[id number] 2.16.840.1.072612.3.57[id number] 2.16.840.1.919728.3.579.2.475295-58-1750Gckmttv1005406 2..840.1.844573.3.57[id number] 2.16.840.1.499751.3.57[id number] Social History DateTypeDetailFacilityStart: 04-18-2022 End: 31-32-0411Zharckq smoking statusEx-smoker (finding)General Surgery [facility] Start: 93-62-3242Hjykphc smoking statusNeverGeneral Surgery BellevueStart: 04-09-2023 End: 23-41-3665Muc [facility] End: 99-34-6771Fzhhhft of tobacco useCurrent smokerNOMS Healthcare End: 26-99-1575Mgshfod of tobacco useCigarette SmokerNOMS HealthcareStart: 02-22-2023 End: 41-06-2968Bwvcsis use and exposureSmokeless tobacco non-userNOMS Healthcare Start: 04-10-2023 End: 46-30-7329Ziefdti intakeEx-drinker (finding)NOMS HealthcareStart: 04-09-2023 End: 93-36-3866Dviaxkz of Social functionNOMS HealthcareWithin the last year, have you been afraid of your partner or ex-partner?NoNOMS HealthcareDo you belong to any clubs or organizations such as temple groups, unions, fraternal or athletic groups, or school groups?YesNOMS HealthcareAre you now , , , , never or living with a partner?Never marriedNOMS HealthcareHow often to you have a drink containing alcohol?NeverNOMS HealthcareHow hard is it for you to pay for the very basics like food, housing, medical care, and heatingVery hardNOMS HealthcareDo you feel stress - tense, restless, nervous, or anxious, or unable to sleep at night because yourmind is troubled all the time - these days [OSQ]To some extentNOMS Healthcare(I/We) worried whether (my/our) food would run out before (I/we) got money to buy more. Never trueNOKS HealthcareStart: 70-85-8594Iut Assigned At BirthNot on fileDAVIS HOSPITAL AND MEDICAL CENTER HealthcareHistory of tobacco usePassive smokerNOKS HealthcareTobacco smoking status NHISUnknown if ever smokedAcmc Healthcare System Work Phone: SexFemale (finding)[facility] Start: 39-57-3180Lfg Assigned At [facility] Medical Equipment Procedure CodeEquipment CodeEquipment Original TextEquipment IdentifierDates Daily 1 each by In Vitro route [id number]: 2024 Functional Status UedzSriiejdttbYlpggzEongfbad95-58-2692Knnbuon Health Questionnaire 2 item (PHQ- 2) [Reported][facility] CenterYytgnsrmcw07-24-9404Vhw difficult have these problems made it for you to do your work, take care of things at home, or get along with other people?Not difficult at all 06/12/2024 9:52 AM Irene Melgar MA Not difficult at allSt. Joseph Medical CenterUuafvslwsj98-89-5387Duxmixb Health Questionnaire 2 item (PHQ-2) [Reported][facility] CenterRalifaqygh19-01-5532Ftmgqhijcy StatusN/AGeneral Surgery BellevueNOMS Healthcare Clinical Notes 04-18-2022 to 10-29-2024 Note Date & PpxxZquyNyuqxpgs88-86-1578 History of Present illness Narrative* Beverley Siegel MD - 10/29/2024 11:10 AM EDT Subjective Patient ID: Bhavana Beavers is a 69 y.o. female who presents for Neck Mass (Follow up [facility] 10/01/24 FNA/[facility] Mag 10/09/24) FNA nondiagnostic (C/W lipoma) Family History Problem Relation Name Age of Onset Cancer Mother Mishel Leukemia Mother Mishel Breast cancer Mother Mishel Hearing loss Mother Mishel Hyperlipidemia Father Jeancarlos Diabetes Father Jeancarlos Hypertension Father Jeancalros COPD Father Jeancarlos Skin cancer Father Jeancarlos Other (bladder cancer) Father Jeancarlos Ovarian cancer Other Family history Cancer Sister Jasmyne COPD Brother Casey Diabetes Brother Casey Active Ambulatory Problems Diagnosis Date Noted Moderate asthma without complication ([facility]) 02/26/2023 Type 2 diabetes mellitus without complication, without long-term current use of insulin ([facility]) 02/26/2023 Essential (primary) hypertension 02/26/2023 Environmental and seasonal allergies 02/26/2023 Mixed hyperlipidemia 02/26/2023 Sleep apnea 04/10/2023 Encounter for screening mammogram for malignant neoplasm of breast 04/10/2023 BMI 40.0-44.9, adult ([facility]) 04/10/2023 Encounter for annual wellness visit (AWV) in Medicare patient 04/10/2023 Current mild episode of major depressive disorder without prior episode 04/10/2023 Candidiasis of skin 07/03/2023 Type 2 diabetes mellitus with diabetic peripheral angiopathy without gangrene ([facility]) 10/01/2023 Hypoglycemia 03/06/2024 Needs flu shot 03/06/2024 Morbid (severe) obesity due to excess calories ([facility]) 06/12/2024 Other emphysema ([facility]) 06/12/2024 Enlarged lymph node in neck 09/18/2024 Resolved Ambulatory Problems Diagnosis Date Noted Primary hypertension 02/26/2023 Class 3 severe obesity due to excess calories with serious comorbidity in adult 02/26/2023 Emphysema lung (HCC) 04/10/2023 Body mass index (BMI) 36.0-36.9, adult 08/16/2023 Acute non-recurrent frontal sinusitis 09/12/2023 Non-recurrent acute suppurative otitis media of right ear without spontaneous rupture of tympanic membrane 09/12/2023 Chronic sinusitis of both maxillary sinuses 10/01/2023 Past Medical History: Diagnosis Date Allergic Unknown Arthritis 1979 s Emphysema of lung (HCC) 2021 GERD (gastroesophageal reflux disease) 2021 HL (hearing loss) 1989 s Past Surgical History: Procedure Laterality Date JUDY-ARTERIAL [...] type hital hernia vs mass. ventral abdmonial wallhernia containing mesenteric fat without evidence of strangulation [...] - GENERIC 09/02/2020 no significant flow stenosis Allergies Allergen Reactions Cefaclor Hives and Shortness of breath Penicillins Hives and Shortness of breath Pneumococcal Poly Diphth Conj Vac 13-Leticia Hives and Shortness of breath Pneumococcal Vaccine Hives and Shortness of breath Patient stated allergy to pneumonia vaccine Pneumovax 23 Current Outpatient Medications on File Prior to Visit Medication Sig Dispense Refill Aspirin Low Dose 81 MG EC tablet atorvastatin (Lipitor) 80 MG tablet Take 1 tablet (80 mg) by mouth in the evening 90 tablet 1 cetirizine (ZyrTEC) 10 MG tablet Take 1 tablet (10 mg) by mouth Daily 90 tablet 1 dapagliflozin (Farxiga) 10 MG Take 1 tablet (10 mg) by mouth Daily 90 tablet 1 Fluticasone Furoate-Vilanterol (Breo Ellipta) 200-25 MCG/ACT aerosol powder Inhale 1 puff Daily Rinse mouth after use 3 each 1 glucose blood (FREESTYLE LITE) test strip Daily 1 each by In Vitro route Daily 50 each 11 hydroCHLOROthiazide (HYDRODiuril) 25 MG tablet Take 1 tablet (25 mg) by mouth Daily 90 tablet 1 metFORMIN (Glucophage) 500 MG tablet Take 1 tablet (500 mg) by mouth in the morning and 1 tablet (500 mg) in the evening. Take with meals. 180 tablet 1 metoprolol tartrate (Lopressor) 50 MG tablet Take 1 tablet (50 mg) by mouth in the morning and 1 tablet (50 mg) before bedtime. 180 tablet 1 gtrvbjbg-knbnamujy-tlbWEKENfdicq (Maxitrol) 0.1 % ophthalmic suspension INSTILL 1 DROP INTO BOTH EYES FOUR TIMES DAILY FOR 5 DAYS Nystop 425561 UNIT/GM powder omeprazole (PriLOSEC) [address] capsule Take 1 capsule (20 mg) by mouth in the morning. Take before meals. 90 capsule 1 Tirzepatide (Mounjaro) 10 MG/0.5ML solution auto-injector Inject 10 mg under the skin every 7 (seven) days 6 mL 1 albuterol HFA 90 mcg/act inhaler Inhale 2 puffs every 6 (six) hours if needed for wheezing or shortness of breath 17 g 4 amLODIPine (Norvasc) 2.5 MG tablet Take 1 tablet (2.5 mg) by mouth Daily Take by mouth Daily. 90 tablet 1 No current facility-administered medications on file prior to visit. Objective Last Recorded Vitals Vitals: 10/29/24 1106 BP: 112/76 Pulse: 75 ENT Physical Exam Constitutional Appearance: patient appears well-developed, well-nourished and well-groomed, Communication/Voice: communication appropriate for developmental age; vocal quality normal; Assessment/Plan Diagnoses and all orders for this visit: Neck mass FNA and exam c/w a lipoma. I will repeat the US in 3 mo. documented in this encounterSt. Joseph Medical [id number] NoteEducation Materials Surgery to Biopsy a Lymph Node: What to Know After After surgery to biopsy a lymph node, it's common to have soreness, mild swelling, and bruising. Follow these instructions at home: Medicines ? Take your medicines only as told. ? Take your antibiotics as told. Do not stop taking them even if you start to feel better. ? You may need to take steps to help treat or prevent trouble pooping (constipation), such as: ? Taking medicines to help you poop. ? Eating foods high in fiber, like beans, whole grains, and fresh fruits and vegetables. ? Drinking more fluids as told. ? Ask your health care provider if it's safe to drive or use machines while taking your medicine. Incision care ? Take care of your cut as told. Make sure you: ? Wash your hands with soap and water for at least 20 seconds before and after you change your bandage. If you can't use soap and water, use hand technical administrative assistant. ? Change your bandage. ? Leave stitches or skin glue alone. ? Leave tape strips alone unless you're told to take them off. You may trim the edges of the tape strips if they curl up. ? Check the area around your cut every day for signs of infection. Check for: ? More redness, swelling, or pain. ? Fluid or blood. ? Warmth. ? Pus or a bad smell. Bathing ? If your provider says you can take baths or showers, cover the bandage with a watertight coveringto protect it from water. Do not let the bandage get wet. ? Keep the bandage dry until your provider says it can be taken off. Activity ? Ask if it's OK for you to lift. ? Ask what things are safe for you to do at home. Ask when you can go back to work or school. General instructions ? Do not smoke, vape, or use nicotine or tobacco. ? If the procedure was done under your arm, don't have blood pressure measurements or blood draws from that arm until your provider says it's OK. ? Get screened for extra fluid around your lymph nodes (lymphedema) as often as told. ? Keep all follow-up visits. Your provider will check for changes or problems that could affect healing. Your provider may give you more instructions. Make sure you know what you can and can't do. Contact a health care provider if: ? You have any signs of infection around your biopsy site. ? You have new bruising. ? You have pain or numbness that gets worse or lasts longer than a few days. Get help right away if: ? You have fever or chills. ? You have very bad pain that doesn't get better with medicine. This information is not intended to replace advice given to you by your health care provider. Make sure you discuss any questions you have with your health care provider. Document Revised: 09/03/2023 Document Reviewed: 09/03/2023 [employer] Patient Education ? 2024 [employer]. Surgery to Biopsy a Lymph Node: What to Expect A lymph node biopsy is a procedure to remove a small piece of tissue from your lymph node. Lymph nodes are clumps of tissue that help your body fight infections and get rid of harmful germs. They're part of your body's defense system, or immune system. A lymph node biopsy may be done to: ? Look for infections or cancer cells in a lymph node. ? Find out why a lymph node is swollen. ? Find out more about a condition you have. Tell a health care provider about: ? Any allergies you have. ? All medicines you take. These include vitamins, herbs, eye drops, and creams. ? Any problems you or family members have had with anesthesia. ? Any bleeding problems you have. ? Any surgeries you have had. ? Any medical conditions you have. ? Whether you're or may be . What are the risks? Your health care provider will talk with you about risks. These may include: ? Infection. ? Bleeding. ? Allergic reactions to medicines. ? Damage to nearby structures or organs, such as a nerve. ? Damage to lymph vessels, causing a buildup of fluid (lymphedema). What happens before the procedure? When to stop eating and drinking Eat and drink only as you've been told. You may be told this: ? 8 hours before your procedure ? Stop eating most foods. Do not eat meat, fried foods, or fatty foods. ? Eat only light foods, such as toast or crackers. ? All liquids are OK except energy drinks and alcohol. ? 6 hours before your procedure ? Stop eating. ? Drink only clear liquids, such as water, clear fruit juice, black coffee, plain tea, and sports drinks. ? Do not drink energy drinks or alcohol. ? 2 hours before your procedure ? Stop drinking all liquids. ? You may be allowed to take medicines with small sips of water. If you don't eat and drink as told, your procedure may be delayed or canceled. Medicines ? Ask about changing or stopping: ? Any medicines you take. ? Any vitamins, herbs, or supplements you take. ? Do not take aspirin or ibuprofen unless you're told to. Surgery safety (more content not included)...[facility] [id number] History of Present illness Narrative* Rossana Alicia NP - 10/06/2024 10:40 AM EDT Associated Problem(s): Enlarged lymph node in neck Continue with ENT * IRENE GALLEGO - 10/06/2024 9:40 AM EDT 10/01- had US of neck and now having biopsy on 10/[address] siegel 10/29 @ 11am * Rossana Alicia NP - 10/06/2024 9:40 AM EDT Images from the original note were not included. Bhavana Beavers is a 69 y.o. female presents with chief complaint of Diabetes HPI: Is seeing dr siegel and a biopsy is scheduled for lymph node Diabetes She presents for her follow-up diabetic visit. She has type 2 diabetes mellitus. Her disease coursehas been stable. There are no hypoglycemic associated symptoms. Pertinent negatives for hypoglycemia include no dizziness, headaches, nervousness/anxiousness, seizures or tremors. There are no diabetic associated symptoms. Pertinent negatives for diabetes include no chest pain, no polydipsia, no polyphagia and no polyuria. There are no hypoglycemic complications. Symptoms are stable. Pertinent negatives for diabetic complications include no nephropathy or peripheral neuropathy. Risk factors forcoronary artery disease include diabetes mellitus, dyslipidemia, hypertension, obesity and sedentary lifestyle. Her overall blood glucose range is 140-180 mg/dl. An SANDRO inhibitor/angiotensin II receptor efrain is being taken. 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 SUBJECTIVE: MEDICATIONS: Current Outpatient Medications Medication Instructions albuterol HFA 90 mcg/act inhaler 2 puffs, Inhalation, Every 6 hours PRN amLODIPine (NORVASC) 2.5 mg, Oral, Daily, Take by mouth Daily. Aspirin Low Dose 81 MG EC tablet atorvastatin (LIPITOR) 80 mg, Oral, Every evening [...] Mounjaro 10 mg, Subcutaneous, Every 7 days oxfgdmlu-rnqbgvric-nydJYGPEegzmi (Maxitrol) 0.1 % ophthalmic suspension INSTILL 1 DROP INTO BOTH EYES FOUR TIMES DAILY FOR 5 DAYS Nystop 141328 UNIT/GM powder omeprazole (PRILOSEC) 20 mg, Oral, Daily before [...] pain and sore throat. Eyes: Negative for pain, [...] MEDICAL HISTORY Past Medical History: Diagnosis Date Allergic Unknown Arthritis 1979 s Chronic sinusitis of both maxillary sinuses 10/01/2023 Emphysema lung ([facility]) 04/10/2023 Emphysema of lung ([facility]) 2021 GERD (gastroesophageal reflux disease) 2021 HL (hearing loss) 1989 Moderate asthma without complication ([facility]) 02/26/2023 Primary hypertension 02/26/2023 Sleep apnea 04/10/2023 Type 2 diabetes mellitus without complication, without long-term current use of insulin ([facility]) 02/26/2023 Past Surgical History: Procedure Laterality Date [...] type hital hernia vs mass. ventral abdmonial wallhernia containing mesenteric fat without evidence of strangulation [...] cancer in her mother; COPD in her brother and father; Cancer in her mother and sister; Diabetes in her brother and father; Hearing loss in her mother; Hyperlipidemia inher father; Hypertension in her father; Leukemia in her mother; Ovarian cancer in an other family member; Skin cancer in her father; bladder cancer in her father. OBJECTIVE: Visit Vitals BP 120/80 (BP Location: Left arm, Patient Position: Sitting, BP Cuff Size: Adult long) Pulse 75 Temp 97.1 F (Temporal) Resp 18 Wt 199 lb 12.8 oz SpO2 95% BMI 36.54 kg/m Smoking Status Former BSA 1.99 m Physical Exam Vitals and nursing note reviewed. Constitutional: General: She is not in acute distress. Appearance: Normal appearance. HENT: Head: Normocephalic and atraumatic. Right Ear: Tympanic membrane, ear canal and external ear normal. Left Ear: External ear normal. Ears: Comments: Questionable FB in left canal: bug vs cerumen, irrigated, sm black ??bug or not, not alive Nose: Nose normal. Mouth/Throat: Mouth: Mucous membranes are moist. Eyes: Extraocular Movements: Extraocular movements intact. Conjunctiva/sclera: Conjunctivae normal. Cardiovascular: Rate and Rhythm: Normal rate and regular rhythm. Pulses: Normal pulses. Heart sounds: Normal heart sounds. Pulmonary: Effort: Pulmonary effort is normal. Breath sounds: Normal breath sounds. Musculoskeletal: General: Normal range of motion. Cervical back: Normal range of motion and neck supple. Right lower leg: No edema. Left lower leg: No edema. Lymphadenopathy: Cervical: Cervical adenopathy: palpable lump to right paracervical region. Skin: General: Skin is warm and dry. Capillary Refill: Capillary refill takes 2 to 3 seconds. Findings: No rash. Neurological: General: No focal deficit present. Mental Status: She is alert and oriented to person, place, and time. Psychiatric: Mood and Affect: Mood normal. Behavior: Behavior normal. Thought Content: Thought content normal. Judgment: Judgment normal. ASSESSMENT AND PLAN: Follow up in about 3 months (around 01/06/2025) for Recheck. Problem List Items Addressed This Visit Moderate asthma without complication (HCC) Relevant Medications Fluticasone Furoate-Vilanterol (Breo Ellipta) 200-25 MCG/ACT aerosol powder Type 2 diabetes mellitus without complication, without long-term current use of insulin (HCC) - Primary Check blood sugars daily, notify [...] 10/06/24, 7.6% on 06/21/24, 9.2% on 03/18/24 Relevant Medications atorvastatin (Lipitor) 80 MG tablet dapagliflozin (Farxiga) 10 MG metFORMIN (Glucophage) 500 MG tablet Tirzepatide (Mounjaro) 10 MG/0.5ML solution auto-injector Other Relevant Orders POCT glycosylated hemoglobin (Hb A1C) docked device (Completed) Essential (primary) hypertension Please check blood pressure daily and record DASH diet Limit caffeine Take medication as directed Contact office if chest pain, pressure, dizziness, shortness of breath, swelling legs Recommend slow position changes Current meds: amlodipine, hydrochlorothiazide, metoprolol Environmental and seasonal allergies Relevant Medications cetirizine (ZyrTEC) 10 MG tablet Mixed hyperlipidemia Relevant Medications atorvastatin (Lipitor) 80 MG tablet [...] that supplies your machine and tubing/filters etc: [employer] Doctor that manages your MERRILL: no body Morbid (severe) obesity due to excess calories ([facility]) Discussed with patient their BMI (actual, verses recommended). We have also discussed lifestyle modifications: attempts to perform physical activity as chronic conditions allow, also to monitor dietary intake: increasing protein/fruits/veggies and lowering carb intake (unless contraindicated). Limit sodas, juices, and sugary drinks. Is taking mounjaro Enlarged lymph node in neck Continue with ENT Other Visit Diagnoses Primary hypertension Relevant Medications hydroCHLOROthiazide (HYDRODiuril) 25 MG tablet metoprolol tartrate (Lopressor) 50 MG tablet Gastroesophageal reflux disease, unspecified whether esophagitis present Relevant Medications omeprazole (PriLOSEC) [address] capsule * Rossana Alciia NP - 10/06/2024 6:33 AM EDTAssociated Problem(s): Morbid (severe) obesity due to excess calories ([facility]) Discussed with patient their BMI (actual, verses recommended). We have also discussed lifestyle modifications: attempts to perform physical activity as chronic conditions allow, also to monitor dietary intake: increasing protein/fruits/veggies and lowering carb intake (unless contraindicated). Limit sodas, juices, and sugary drinks. Is taking mounjaro * Rossana Alicia NP - 10/06/2024 6:32 AM EDTAssociated Problem(s): Type 2 diabetes mellitus without complication, without long-term current useof insulin ([facility]) Check blood sugars daily, notify if <70 [...] 10/06/24, 7.6% on 06/21/24, 9.2% on 03/18/24 * Rossana Alicia NP - 10/06/2024 6:32 AM EDTAssociated Problem(s): Essential (primary) hypertension Please check blood pressure daily and record DASH diet Limit caffeine Take medication as directed Contact office if chest pain, pressure, dizziness, shortness of breath, swelling legs Recommend slow position changes Current meds: amlodipine, hydrochlorothiazide, metoprolol * Rossana Alicia NP - 10/06/2024 6:32 AM EDTAssociated Problem(s): Sleep apnea You have a diagnosis [...] that supplies your machine and tubing/filters etc: [employer] Doctor that manages your MERRILL: no body documented in this [facility]07-14-2025 Instructions* Patient Instructions* Rossana Alicia NP - 10/06/2024 9:40 AM EDT No med changes Keep up the good work documented in this [facility]07-01-2025 History of Present illness Narrative* Beverley Siegel MD - 09/23/2024 2:40 PM EDT Subjective Patient ID: Bhavana Beavers is a 69 y.o. female who presents for enlarged lymp node (CT [facility] 09/12/24) Pt reports she was seen in the [facility] ED 09/11 with a FB sensation in her RT throat. CT obtained that incidentally shows a [id number] structure in the RT post triangle c/w a possible necrotic LN. Pt has had no pain or discomfort in her neck and no reasons to suspect there was an abnormality. ED tx withlevaquin 500mg for 7 days. Throat sx resolved after 4-5 days. Review of Systems All other systems reviewed and are negative. Family History Problem Relation Name Age of Onset Cancer Mother Mishel Leukemia Mother Mishel Breast cancer Mother Mishel Hearing loss Mother Mishel Hyperlipidemia Father Jeancarlos Diabetes Father Jeancarlos Hypertension Father Jeancarlos COPD Father Jeancarlos Skin cancer Father Jeancarlos Other (bladder cancer) Father Jeancarlos Ovarian cancer Other Family history Cancer Sister Jasmyne COPD Brother Casey Diabetes Brother Casey Active Ambulatory Problems Diagnosis Date Noted Moderate asthma without complication ([facility]) 02/26/2023 Type 2 diabetes mellitus without complication, without long-term current use of insulin ([facility]) 02/26/2023 Essential (primary) hypertension 02/26/2023 Environmental and seasonal allergies 02/26/2023 Mixed hyperlipidemia 02/26/2023 Sleep apnea 04/10/2023 Encounter for screening mammogram for malignant neoplasm of breast 04/10/2023 BMI 40.0-44.9, adult ([facility] [place]) 04/10/2023 Encounter for annual wellness visit (AWV) in Medicare patient 04/10/2023 Current mild episode of major depressive disorder without prior episode 04/10/2023 Candidiasis of skin 07/03/2023 Chronic sinusitis of both maxillary sinuses 10/01/2023 Type 2 diabetes mellitus with diabetic peripheral angiopathy without gangrene ([facility]) 10/01/2023 Hypoglycemia 03/06/2024 Needs flu shot 03/06/2024 Morbid (severe) obesity due to excess calories ([facility]) 06/12/2024 Other emphysema ([facility]) 06/12/2024 Enlarged lymph node in neck 09/18/2024 Resolved Ambulatory Problems Diagnosis Date Noted Primary hypertension 02/26/2023 Class 3 severe obesity due to excess calories with serious comorbidity in adult 02/26/2023 Emphysema lung ([facility]) 04/10/2023 Body mass index (BMI) 36.0-36.9, adult 08/16/2023 Acute non-recurrent frontal sinusitis 09/12/2023 Non-recurrent acute suppurative otitis media of right ear without spontaneous rupture of tympanic membrane 09/12/2023 Past Medical History: Diagnosis Date Allergic Unknown Arthritis 1979 s Emphysema of lung (HCC) 2021 GERD (gastroesophageal reflux disease) 2021 HL (hearing loss) 1989 Past Surgical History: Procedure Laterality Date JUDY-ARTERIAL [...] type hital hernia vs mass. ventral abdmonial wallhernia containing mesenteric fat without evidence of strangulation DILATION AND CURETTAGE OF UTERUS ECHOCARDIOGRAM 09/02/2020 EF 55-60%, mild LVH, mild elevated right sided pressures EGD 02/04/2014 pre-pyloric gastritis adn duodneitis with punctate bleeding EYE EXAM 01/20/2022 Dilated retinal eye exm, normal, no diabetic complications FOOT SURGERY multiple 1980s+1990s LAPAROTOMY OOPHERECTOMY Right 1990 LIPOMA RESECTION Right 1999 upper arm TONSILLECTOMY 1963 ULTRASOUND 03/23/2021 Liver USN: fatty liver, no masses US ARTERIAL DUPLEX LE LT 05/29/2019 mod-prosper atherosclerotic disease US CAROTID - GENERIC 09/02/2020 no significant flow stenosis Allergies Allergen Reactions Cefaclor Hives and Shortness of breath Penicillins Hives and Shortness of breath Pneumococcal Vaccine Hives and Shortness of breath Patient stated allergy to pneumonia vaccine Pneumovax 23 Current Outpatient Medications on File Prior to Visit Medication Sig Dispense Refill albuterol HFA 90 mcg/act inhaler Inhale 2 puffs every 6 (six) hours if needed for wheezing or shortness of breath 17 g 4 amLODIPine (Norvasc) 2.5 MG tablet Take 1 tablet (2.5 mg) by mouth Daily Take by mouth Daily. 90 tablet 1 Aspirin Low Dose 81 MG EC tablet atorvastatin (Lipitor) 80 MG tablet Take 1 tablet (80 mg) by mouth in the evening 90 tablet 1 cetirizine (ZyrTEC) 10 MG tablet Take 1 tablet (10 mg) by mouth Daily 90 tablet 1 dapagliflozin (Farxiga) 10 MG Take 1 tablet (10 mg) by mouth Daily 90 tablet 1 Fluticasone Furoate-Vilanterol (Breo Ellipta) 200-25 MCG/ACT aerosol powder Inhale 1 puff Daily Rinse mouth after use 3 each 1 glucose blood (FREESTYLE LITE) test strip Daily 1 each by In Vitro route Daily 50 each 11 hydroCHLOROthiazide (HYDRODiuril) 25 MG tablet Take 1 tablet (25 mg) by mouth Daily 90 tablet 1 metFORMIN (Glucophage) 500 MG tablet Take 1 tablet (500 mg) by mouth in the morning and 1 tablet (500 mg) in the evening. Take with meals. 180 tablet 1 metoprolol tartrate (Lopressor) 50 MG tablet Take 1 tablet (50 mg) by mouth in the morning and 1 tablet (50 mg) before bedtime. 180 tablet 1 tycmvylu-divaymaqd-kirXELEIujids (Maxitrol) 0.1 % ophthalmic suspension INSTILL 1 DROP INTO BOTH EYES FOUR TIMES DAILY FOR 5 DAYS Nystop [id number] UNIT/GM powder omeprazole (PriLOSEC) [address] capsule Take 1 capsule (20 mg) by mouth in the morning. Take before meals. 90 capsule 1 Tirzepatide (Mounjaro) 10 MG/0.5ML solution auto-injector Inject 10 mg under the skin every 7 (seven) days 6 mL 1 No current facility-administered medications on file prior to visit. Objective Last Recorded Vitals Vitals: 09/23/24 1436 BP: 139/75 Pulse: 76 ENT Physical Exam Constitutional Appearance: patient appears well-developed, well-nourished and well-groomed, Head and Face Appearance: head appears normal and face appears atraumatic; Ear Ear Canals: right ear canal normal; left ear canal normal; Tympanic Membranes: right tympanic membrane normal; left tympanic membrane normal; Nose External Nose: nares patent bilaterally; external nose normal; Internal Nose: septum normal; Oral Cavity/Oropharynx Tongue: normal; Oral mucosa: normal; Hard palate: normal; Soft palate: normal; Tonsils: normal; Neck Neck: neck normal; neck mass present; Thyroid: thyroid normal; Neck comments: Soft mobile right posterior triangle mass c/w CT Respiratory Inspection: breathing unlabored; normal breathing rate; Auscultation: breath sounds are clear; Cardiovascular Inspection: extremities are warm and well perfused; no peripheral edema present; Auscultation: regular rate and rhythm; Assessment/Plan Diagnoses and all orders for this visit: Neck mass - Ambulatory referral to ENT 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 I will check an US-guided FNA as well as a baseline diagnostic US to us for future comparisons. documented in this encounterSt. [facility] Medical [id number] History of Present illness Narrative* Rossana Alicia NP - 09/01/2024 1:31 PM EDTAssociated Problem(s): Morbid (severe) obesity due to excess calories (CMS/HCC) Discussed with patient their BMI (actual, verses recommended). We have also discussed lifestyle modifications: attempts to perform physical activity as chronic conditions allow, also to monitor dietary intake: increasing protein/fruits/veggies and lowering carb intake (unless contraindicated). Limit sodas, juices, and sugary drinks. Is taking mounjaro * Rossana Alicia NP - 09/01/2024 1:29 PM EDTAssociated Problem(s): Environmental and seasonal allergies Add allergy nasal steroid, as well as allergy eye drops Medrol dose pack, sugars have been less than 180 Fu if not better, quit her polym. B eye drops * IRENE GALLEGO - 09/01/2024 1:00 PM EDT Pt started having symptoms on Sunday. Pt [...] there was a lot of pollen blowing. * Rossana Alicia, REGIONAL CLINICAL DIRECTOR - 09/01/2024 1:00 PM EDT Images from the original note were not included. Bhaavna Beavers is a 69 y.o. female presents [...] Mounjaro 10 mg, Subcutaneous, Every 7 days dkwobgxg-oliccnlur-yaxZRWFLtlrco (Maxitrol) 0.1 % ophthalmic suspension INSTILL 1 DROP INTO BOTH EYES FOUR TIMES DAILY FOR 5 DAYS Nystop [id number] UNIT/GM powder APPLY TO AFFECTED AREA TWICE [...] Past Medical History: Diagnosis Date Emphysema lung ([facility]) 04/10/2023 Moderate asthma without complication ([facility]) 02/26/2023 Primary hypertension ([facility]) 02/26/2023 Sleep apnea 04/10/2023 Type 2 diabetes [...] type hital hernia vs mass. ventral abdmonial wallhernia containing mesenteric fat without evidence of strangulation [...] juices, and sugary drinks. Is taking mounjaro documented in this encounterSt. Joseph Medical [id number] Instructions* Patient Instructions* Rossana Alicia NP - 09/01/2024 1:00 PM EDT Compress to eyes Allergy meds, add nasal spray and medrol dose back Stop atb eye drop Fu if not better documented in this encounterSt. Joseph Medical [id number] History of Present illness Narrative* IRENE GALLEGO - 06/12/2024 9:40 AM EDT Left leg sciatica- pt did go to chiropractor on Sunday does feel better Eye appt on Sunday (martín) * Rossana Alicia NP - 06/12/2024 9:40 AM EDT Images from the original note were not included. Bhavana Beavers is a 69 y.o. female presents [...] symptoms include peripheral edema and shortness of breath.Pertinent negatives include no chest pain, headaches, malaise/fatigue or palpitations. There are noassociated agents to hypertension. Risk factors for coronary artery disease include diabetes mellitus, dyslipidemia, obesity and sedentary lifestyle. Past treatments include beta blockers, calcium channel blockers and diuretics. The current treatment provides significant improvement. There are no compliance problems. There is no history of CAD/PA or heart failure. Diabetes She presents for her follow-up diabetic visit. She has type 2 diabetes mellitus. Her disease coursehas been improving. There are no hypoglycemic associated [...] 140-180 mg/dl. An SANDRO inhibitor/angiotensin II receptor efrain isnot being taken. Eye exam is current. Asthma [...] Mounjaro 7.5 mg, Every 7 days Nystop [id number] UNIT/GM powder APPLY TO AFFECTED AREA TWICE [...] Past Medical History: Diagnosis Date Emphysema lung ([facility]) 04/10/2023 Moderate asthma without complication ([facility]) 02/26/2023 Primary hypertension ([facility]) 02/26/2023 Sleep apnea 04/10/2023 Type 2 diabetes mellitus without complication, without long-term current use of insulin ([facility]) 02/26/2023 Past Surgical History: Procedure Laterality Date [...] type hital hernia vs mass. ventral abdmonial wallhernia containing mesenteric fat without evidence of strangulation DILATION AND CURETTAGE OF UTERUS ECHOCARDIOGRAM 09/02/2020 EF 55-60%, mild LVH, mild elevated right sided pressures EGD 02/04/2014 pre-pyloric gastritis adn duodneitis with punctate bleeding EYE EXAM 01/20/2022 Dilated retinal eye exm, normal, no diabetic complications FOOT SURGERY multiple 1980s+ LAPAROTOMY OOPHERECTOMY Right 1990 LIPOMA RESECTION Right 1999 upper arm TONSILLECTOMY [...] Addressed This Visit Moderate asthma without complication ([facility]) Current meds: breo and albuterol Use of rescue inhaler: Relevant Medications Fluticasone Furoate-Vilanterol (Breo Ellipta) 200-25 MCG/ACT aerosol powder Type 2 diabetes mellitus without complication, without long-term current use of insulin ([facility]) Check blood sugars daily, notify if <70 [...] that supplies your machine and tubing/filters etc: [employer] that manages your MERRILL: no body [...] and albuterol Other Visit Diagnoses Primary hypertension ([facility]) Relevant Medications amLODIPine (Norvasc) 2.5 MG tablet hydroCHLOROthiazide (HYDRODiuril) 25 MG tablet metoprolol tartrate (Lopressor) 50 MG tablet Gastroesophageal reflux disease, unspecified whether esophagitis present Relevant Medications omeprazole (PriLOSEC) [address] capsule * Rossana Alicia NP - 06/12/2024 6:25 AM EDTAssociated Problem(s): Encounter for annual wellness visit (AWV) in Medicare patient Reviewed Ht/Wt/BMI Recommend eye exam yearly Recommend dental exams twice a year Balance work/leisure activities Exercises is recommended most days of the week (appropriate as chronic conditions allow) Follow up yearly and prn * Rossana Alicia NP - 06/12/2024 6:25 AM EDTAssociated Problem(s): Current mild episode of major depressive disorder without prior episode ([facility]) ([facility]) Not currently prescribed any medications, per pt's wishes RAMY 7=0 PHQ 9=2 * Rossana Alicia NP - 06/12/2024 6:24 AM EDTAssociated Problem(s): Type 2 diabetes mellitus without complication, without long-term current useof insulin ([facility]) Check blood sugars daily, notify if <70 [...] farxiga, metformin, mounjaro A1c: 9.2% on 03/18/24 * Rossana Alicia NP - 06/12/2024 6:24 AM EDTAssociated Problem(s): Morbid (severe) obesity due to excess calories (CMS/HCC) Discussed with patient their BMI (actual, verses recommended). We have also discussed lifestyle modifications: attempts to perform physical activity as chronic conditions allow, also to monitor dietary intake: increasing protein/fruits/veggies and lowering carb intake (unless contraindicated). Limit sodas, juices, and sugary drinks. Is taking mounjaro 20 pounds loss over last 12 months * Rossana Alicia NP - 06/12/2024 6:23 AM EDTAssociated Problem(s): Type 2 diabetes mellitus with diabetic peripheral angiopathy without gangrene (CMS/HCC) Cont statin, asa and risk factor modification * Rossana Alicia NP - 06/12/2024 6:23 AM EDTAssociated Problem(s): Essential (primary) hypertension (CMS/HCC) Please check blood pressure daily and record DASH diet Limit caffeine Take medication as directed Contact office if chest pain, pressure, dizziness, shortness of breath, swelling legs Recommend slow position changes Current meds: amlodipine, hydrochlorothiazide, metoprolol * Rossana Alicia NP - 06/12/2024 6:23 AM EDTAssociated Problem(s): Other emphysema ([facility]) Current meds: breo inhaler and albuterol * Rossana Alicia NP - 06/12/2024 6:23 AM EDTAssociated Problem(s): Moderate asthma without complication ([facility]) Current meds: breo and albuterol Use of rescue inhaler: * Rossana Alicia NP - 06/12/2024 6:21 AM EDTAssociated Problem(s): Sleep apnea You have a diagnosis [...] your MERRILL: no body documented in this encounterSt. Joseph Medical [id number] Instructions* Patient Instructions* Rossana Alicia NP - 06/12/2024 9:40 AM EDT A1c, get done by June 23, documented in this [facility]01-09-2025 History of Present illness Narrative* Nabila Drummond DPM - 04/03/2024 3:00 PM EST Images from the original note were not included. Subjective Patient ID: Bhavana Beavers is a 68 y.o. female who presents for Foot Problem (Bhavana Beavers is a 68 y.o. female. Patient relates Left 5th toenail is sore and discolored. NKI, Patient noticed about 2 weeks ago. Difficult to trim. PCP: Rossana Matamoros LV 03/06/24, A1C: 9.1 BS: 143). HPI Patient presents complaining of left 5th toe that has been painful for about 2 weeks. She states toe has been slightly red and swollen, she mowed notices it more at the end of the night. She is triedbuddy splinting the toe which helps. She denies [...] Disp: 90 tablet, Rfl: 1 Continuous Glucose Chief Lock Operator (Dexcom G7 Chief Lock Operator) device, 1 each Daily, Disp: 1 each, [...] mg) by mouth in the morning. Take beforemeals., Disp: 90 capsule, Rfl: 1 Tirzepatide (Mounjaro) [...] type hital hernia vs mass. ventral abdmonial wallhernia containing mesenteric fat without evidence of strangulation [...] nippers and the electronic bur to see ifthis improved her symptoms. I also recommended leonel splinting the toes and a period of immobilization in surgical shoe to reduce motion and pressure on the toe. Patient declines stating she does notwant a surgical shoe with the snow and she has helping a friend currently so she will have to be onher feet more than usual and she does not want to flare her Achilles tendonitis. Therefore, she will try to wear shoe gear that does not rub on the toe. She will see if debridementof the nail improves her symptoms at all. I recommended she continue leonel splinting the toes for aweek to see if this improves it. I [...] or corrected. Thank you for your understanding. Nabila Drummond DPM documented in this encounterSt. Joseph Medical [id number] History of Present illness Narrative* Rossana Alicia, REGIONAL CLINICAL DIRECTOR - 03/06/2024 10:59 AM ESTAssociated Problem(s): Environmental and seasonal allergies Takes allergy pill, does not like nasal steroids * Rossana Alicia NP - 03/06/2024 10:56 AM ESTAssociated Problem(s): Hypoglycemia Does have times where she is not sure what her blood sugar is doing, feels dizziness, hunger and shaky feeling Will see if insurance covers CGM * IRENE GALLEGO - 03/06/2024 9:40 AM EST Left leg pain- pt thinks it could be sciatica it has been painful for 3 weeks or more. Pt having troubles getting her test strips ordered/ refilled Lot number [id number] 50 strips each Code 16 Free style lite [place] * Rossana Alicia NP - 03/06/2024 9:40 AM EST Images from the original note were not included. Bhavana Beavers is a 68 y.o. female presents with chief complaint of Diabetes HPI: MERRILL: is compliant with wearing PAP, 6-7 COPD/Asthma: is taking her inhalers, minimal cough/dyspnea/wheeze noted Diabetes She presents for her follow-up diabetic visit. She has type 2 diabetes mellitus. Her disease coursehas been improving. Hypoglycemia symptoms include dizziness, hunger and tremors. Pertinent negatives for hypoglycemia include no headaches, nervousness/anxiousness or seizures. Pertinent negatives for diabetes include no blurred vision, no chest pain, no foot paresthesias, no polydipsia, no polyphag ia and no polyuria. There are no hypoglycemic complications. Symptoms are improving. There are no diabetic complications. Risk factors for coronary artery disease include diabetes mellitus, dyslipidemia, hypertension, obesity and sedentary lifestyle. Current diabetic treatment includes oral agent (dual therapy) (sheelaundoris). Her overall blood glucose range is >200 mg/dl. An SANDRO inhibitor/angiotensin II receptor efrain is not being taken. Eye exam is current. Hypertension This is a chronic problem. The current episode started more than 1 year ago. The problem is unchanged. The problem is controlled. Associated symptoms include peripheral edema (at times). Pertinent negatives include no blurred vision, chest pain, headaches, malaise/fatigue, palpitations or shortnessof breath. There are no associated agents to hypertension. Risk factors for coronary artery diseaseinclude diabetes mellitus, dyslipidemia, obesity, post-menopausal state and sedentary lifestyle. Past treatments include calcium channel blockers, diuretics and beta blockers. The current treatment provides significant improvement. There are no compliance problems. There is no history of CAD/PA or heart failure. SUBJECTIVE: MEDICATIONS: Current Outpatient [...] Past Medical History: Diagnosis Date Emphysema lung ([facility]) 04/10/2023 Moderate asthma without complication ([facility]) 02/26/2023 Primary hypertension ([facility]) 02/26/2023 Sleep apnea 04/10/2023 Type 2 diabetes mellitus without complication, without long-term current use of insulin ([facility]) 02/26/2023 Past Surgical History: Procedure Laterality Date [...] type hital hernia vs mass. ventral abdmonial wallhernia containing mesenteric fat without evidence of strangulation [...] complication, without long-term current use of insulin ([facility]) -Primary Check blood sugars daily, notify if <70 [...] is not sure if she is having lowblood sugar-see if can get CGM She is [...] Sensor (Dexcom G7 Sensor) misc Continuous Glucose Chief Lock Operator (Dexcom G7 Chief Lock Operator) device Tirzepatide (Mounjaro) 7.5 MG/0.5ML solution auto-injector [...] cetirizine (ZyrTEC) 10 MG tablet Mixed hyperlipidemia ([facility]) On statin therapy Check labs yearly and [...] currenttherapies Has lost 13 pounds since 07/17 Hypoglycemia Does have times where she is not sure what her blood sugar is doing, feels dizziness, hunger and shaky feeling Will see if insurance covers CGM Relevant Medications Continuous Glucose Sensor (Dexcom G7 Sensor) misc Continuous Glucose Chief Lock Operator (Dexcom G7 Chief Lock Operator) device Needs flu shot Relevant Orders Flu vaccine, trivalent, adjuvanted, PF ([id number]) (Fluad trivalent single dose syringe) (Completed) Other Visit Diagnoses Primary hypertension (CMS/HCC) Relevant Medications amLODIPine (Norvasc) 2.5 MG tablet hydroCHLOROthiazide (HYDRODiuril) 25 MG tablet metoprolol tartrate (Lopressor) 50 MG tablet Gastroesophageal reflux disease, unspecified whether esophagitis present Relevant Medications omeprazole (PriLOSEC) [address] capsule * Rossana Alicia NP - 03/06/2024 6:57 AM ESTAssociated Problem(s): Mixed hyperlipidemia (CMS/HCC) On statin therapy Check labs yearly and prn * Rossana Alicia NP - 03/06/2024 6:57 AM ESTAssociated Problem(s): Current mild episode of major depressive disorder without prior episode (HCC) (CMS/HCC) Patient has requested not to take medications during previous appointments * Rossana Alicia NP - 03/06/2024 6:56 AM ESTAssociated Problem(s): Type 2 diabetes mellitus without complication, without long-term current useof insulin ([facility]) Check blood sugars daily, notify if <70 [...] is not sure if she is having lowblood sugar-see if can get CGM She is frustrated at the fact the mounjaro has not caused more weight loss, again the goal is to control sugar, with the added value of weight loss Feels like it is harder for her to poke finger to get blood as well Hoping for CGM will send in script * Rossana Alicia NP - 03/06/2024 6:54 AM ESTAssociated Problem(s): Obesity (BMI 30-39.9) Discussed with patient their BMI (actual, verses recommended). We have also discussed lifestyle modifications: attempts to perform physical activity as chronic conditions allow, also to monitor dietary intake: increasing protein/fruits/veggies and lowering carb intake (unless contraindicated). Limit sodas, juices, and sugary drinks. Has been able to slowly bring down weight, continue with currenttherapies Has lost 13 pounds since 07/17 * Rossana Alicia NP - 03/06/2024 6:53 AM ESTAssociated Problem(s): Essential hypertension Please check blood pressure daily and record DASH diet Limit caffeine Take medication as directed Contact office if chest pain, pressure, dizziness, shortness of breath, swelling legs Recommend slow position changes Current meds: amlodipine, hydrochlorothiazide, metoprolol * Rossana Alicia NP - 03/06/2024 6:53 AM ESTAssociated Problem(s): Moderate asthma without complication (CMS/HCC) Current meds: breo and albuterol * Rossana Alicia NP - 03/06/2024 6:52 AM ESTAssociated Problem(s): Emphysema lung (CMS/HCC) Current meds; albuterol prn, breo daily * Rossana Alicia NP - 03/06/2024 6:52 AM ESTAssociated Problem(s): Sleep apnea CPAP use: 6-7 hours per night Tolerates well documented in this encounterSt. Joseph Medical [id number] Instructions* Patient Instructions* Rossana Alicia NP - 03/06/2024 9:40 AM EST See if we can get dexcom through insurance A1c due 03/14/24 documented in this [facility]09-11-2024 History of Present illness Narrative* Rossana Alicia NP - 12/05/2023 4:14 PM EDTAssociated Problem(s): Type 2 diabetes mellitus without complication, without long-term current useof insulin (CMS/HCC) Is continuing to demonstrate weight loss, slow sugar response Discontinue rybelsus, will trial mounjaro at 2.5mg, #1 sample given lot [id number], exp 03/06/24 After 3 weeks will let me know if helping then will order 5mg Also needed a sample of farxiga 10mg until mail order came in, sample recorded and given * Rossana Alicia NP - 12/05/2023 4:13 PM EDTAssociated Problem(s): Essential hypertension At goal * Rossana Alicia NP - 12/05/2023 4:13 PM EDTAssociated Problem(s): Moderate asthma without complication (CMS/HCC) Stable on current meds * IRENE GALLEGO - 12/05/2023 2:00 PM EDT Pt needs a refill on her farxiga [...] as meter from todays reading and back.. * Rossana Macariorodgerleonides, REGIONAL CLINICAL DIRECTOR - 12/05/2023 2:00 PM EDT Images from the original note were not included. Bhavana Beavers is a 68 y.o. female presents with chief complaint of No chief complaint on file. HPI: Diabetes She presents for her follow-up diabetic visit. She has type 2 diabetes mellitus. Her disease coursehas been fluctuating. There are no hypoglycemic associated [...] >200 mg/dl. An SANDRO inhibitor/angiotensin II receptor efrain is being taken. SUBJECTIVE: MEDICATIONS: Current Outpatient [...] Past Medical History: Diagnosis Date Emphysema lung ([facility]) 04/10/2023 Moderate asthma without complication ([facility]) 02/26/2023 Primary hypertension ([facility]) 02/26/2023 Sleep apnea 04/10/2023 Type 2 diabetes mellitus without complication, without long-term current use of insulin ([facility]) 02/26/2023 Past Surgical History: Procedure Laterality Date [...] type hital hernia vs mass. ventral abdmonial wallhernia containing mesenteric fat without evidence of strangulation [...] mounjaro at 2.5mg, #1 sample given lot [id number], exp 03/06/24 After 3 weeks will let [...] Medications omeprazole (PriLOSEC) [address] capsule * Rossana Alicia NP - 12/05/2023 7:26 AM EDTAssociated Problem(s): Type 2 diabetes mellitus with diabetic peripheral angiopathy without gangrene (CMS/HCC) Cont statin, asa and risk factor modification documented in this encounterSt. Joseph Medical [id number] NoteOPERATIVE NOTE OPERATION DATE: 05/17/2022 PREOPERATIVE DIAGNOSIS: Colorectal [...] recovery room in good condition. CC: Rossana Alicia, [facility]01-24-2023 NoteChief Complaint consultation for screening colonoscopy HPI Staff [...] swallowing difficulties, no hearing loss, no ear infection(s),no nose bleeds. Cardiovascular: normal blood pressure, no [...] Tobacco Use:. Never Smokeless Tobacco Use:. Cigarettes, 1per day. Started age 16.0 Years. Stopped age 40 Years., 04/18/2022 Family History Diabetes mellitus type 2: Father and Brother. Hypertension: Father, Sister and Brother. Leukem (more content not included)...[facility] HospitalComment on above:Result Comment: Electronically Signed By: FRANKLIN CORTEZ, Julian Case.triston\Date and Time Signed: 04/18/22 15:13 ESTEvaluation + Plan note No data available for this section General Surgery [facility] Evaluation note* Diagnosis Moderate persistent asthma without complication (CMS/HCC) [...] of insulin (CMS/HCC)- Primary BMI 40.0-44.9, adult ([facility]) Primary hypertension (CMS/HCC) Unspecified essential hypertension Current mild episode of major depressive disorder without prior episode (HCC) ([facility]) Type 2 diabetes mellitus without complication, without long-term current use of insulin ([facility])- Primary Primary hypertension (CMS/HCC) Unspecified essential hypertension Mixed hyperlipidemia (CMS/HCC) Mixed hyperlipidemia Environmental and seasonal allergies Moderate persistent asthma without complication ([facility]) Candidiasis of skin Candidiasis of skin and nails Gastroesophageal reflux disease, unspecified whether esophagitis present Type 2 diabetes mellitus without complication, without long-term current use of insulin (CMS/HCC)- Primary Moderate persistent asthma without complication ([facility]) Obesity (BMI 30-39.9) Acute non-recurrent frontal sinusitis- Primary Environmental and seasonal allergies Non-recurrent acute suppurative otitis media of right ear without spontaneous rupture of tympanic membrane Chronic sinusitis of both maxillary sinuses- Primary Type 2 diabetes mellitus with 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, unspecified whether dogger insulin use ([facility]) Peripheral vascular disease, unspecified ([facility]) Peripheral vascular disease, unspecified Type 2 diabetes mellitus without complication, without long-term current use of insulin ([facility]) Obesity (BMI 30-39.9) Type 2 diabetes mellitus without complication, without long-term current use of insulin ([facility])- Primary Type 2 diabetes mellitus with diabetic peripheral angiopathy without gangrene ([facility]) Essential hypertension Unspecified essential hypertension Mixed hyperlipidemia (CMS/HCC) Mixed hyperlipidemia Primary hypertension ([facility]) Unspecified essential hypertension Environmental and seasonal allergies Chronic sinusitis of both maxillary sinuses Moderate persistent asthma without complication ([facility]) Gastroesophageal reflux disease, unspecified whether esophagitis present Primary hypertension ([facility]) Unspecified essential hypertension documented in this encounter [facility] HealthcareEvaluation note* Diagnosis Type 2 diabetes mellitus without complication, without long-term current use of insulin ([facility])- Primary Primary hypertension ([facility]/HCC) Unspecified essential hypertension Moderate persistent asthma without complication ([facility]) Class 3 severe obesity due to excess calories with serious comorbidity in adult, unspecified BMI ([facility]/HCC) Environmental and seasonal allergies Mixed hyperlipidemia (CMS/HCC) [...] 2 diabetes mellitus with 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, unspecified whether fdc insulin use (CMS/HCC) Peripheral vascular disease, unspecified [...] of insulin (CMS/HCC) documented in this encounter [facility] HealthcareEvaluation note* Diagnosis Type 2 diabetes mellitus without complication, without long-term current use of insulin ([facility])- Primary Primary hypertension ([facility]) Unspecified essential hypertension Moderate persistent asthma without complication ([facility]) Class 3 severe obesity due to excess calories with serious comorbidity in adult, unspecified BMI ([facility]) Environmental and seasonal allergies Mixed hyperlipidemia ([facility]/HCC) Mixed hyperlipidemia Gastroesophageal reflux disease, unspecified whether esophagitis present Encounter for screening mammogram for malignant neoplasm of breast- Primary Type 2 diabetes mellitus without complication, without long-term current use of insulin ([facility]) BMI 40.0-44.9, adult ([facility]) Moderate persistent asthma without complication ([facility]) Pulmonary emphysema, unspecified emphysema type ([facility]) Primary hypertension ([facility]) Unspecified essential hypertension Encounter for annual wellness visit (AWV) in Medicare patient Current mild episode of major depressive disorder without prior episode (HCC) ([facility]) Type 2 diabetes mellitus without complication, without long-term current use of insulin ([facility])- Primary BMI 40.0-44.9, adult ([facility]) Primary hypertension ([facility]) Unspecified essential hypertension Current mild episode of major depressive disorder without prior episode (HCC) ([facility]) Type 2 diabetes mellitus without complication, without long-term current use of insulin ([facility])- Primary Primary hypertension ([facility]) Unspecified essential hypertension Mixed hyperlipidemia ([facility]) Mixed hyperlipidemia Environmental and seasonal allergies Moderate persistent asthma without complication ([facility]) Candidiasis of skin Candidiasis of skin and nails Gastroesophageal reflux disease, unspecified whether esophagitis present Type 2 diabetes mellitus without complication, without long-term current use of insulin ([facility])- Primary Moderate persistent asthma without complication ([facility]) Obesity (BMI 30-39.9) Acute non-recurrent frontal sinusitis- Primary Environmental and seasonal allergies Non-recurrent acute suppurative otitis media of right ear without spontaneous rupture of tympanic membrane Chronic sinusitis of both maxillary sinuses- Primary Type 2 diabetes mellitus with 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, unspecified whether fdc insulin use ([facility]) Peripheral vascular disease, unspecified ([facility]) Peripheral vascular disease, unspecified Type 2 diabetes mellitus without complication, without long-term current use of insulin ([facility]) Obesity (BMI 30-39.9) Type 2 diabetes mellitus without complication, without long-term current use of insulin ([facility])- Primary Type 2 diabetes mellitus with diabetic peripheral angiopathy without gangrene (CMS/HCC) Essential hypertension Unspecified essential hypertension Mixed hyperlipidemia (CMS/HCC) Mixed hyperlipidemia Primary hypertension (CMS/HCC) Unspecified essential hypertension Environmental and seasonal allergies Chronic sinusitis of both maxillary sinuses Moderate persistent asthma without complication (CMS/HCC) Gastroesophageal reflux disease, unspecified whether esophagitis present Type 2 diabetes mellitus without complication, without long-term current use of insulin ([facility])- Primary Obstructive sleep apnea syndrome Obstructive sleep apnea (adult) (pediatric) Pulmonary emphysema, unspecified emphysema type ([facility]) Moderate persistent asthma without complication ([facility]) Essential hypertension Unspecified essential hypertension Obesity (BMI 30-39.9) Current mild episode of major depressive disorder without prior episode (HCC) ([facility]) Mixed hyperlipidemia (CMS/HCC) Mixed hyperlipidemia Primary hypertension ([facility]) Unspecified essential hypertension Environmental and seasonal allergies Gastroesophageal reflux disease, unspecified whether esophagitis present Hypoglycemia Hypoglycemia, unspecified Needs flu shot Need for prophylactic vaccination and inoculation against influenza documented in this encounter [facility] HealthcareEvaluation note* Diagnosis Type 2 diabetes mellitus without complication, without long-term current use of insulin ([facility])- Primary Type 2 diabetes mellitus with diabetic peripheral angiopathy without gangrene ([facility]) Essential hypertension Unspecified essential hypertension Mixed hyperlipidemia ([facility]/HCC) Mixed hyperlipidemia Primary hypertension ([facility]) Unspecified essential hypertension Environmental and seasonal allergies Chronic sinusitis of both maxillary sinuses Moderate persistent asthma without complication ([facility]) Gastroesophageal reflux disease, unspecified whether esophagitis present documented in this encounter [facility] HealthcareEvaluation note* Diagnosis Type 2 diabetes mellitus without complication, without long-term current use of insulin ([facility])- Primary documented in this encounter [facility] HealthcareEvaluation note* Diagnosis Type 2 diabetes mellitus without complication, without long-term current use of insulin ([facility])- Primary Primary hypertension ([facility]) Unspecified essential hypertension Moderate persistent asthma without complication ([facility]) Class 3 severe obesity due to excess calories with serious comorbidity in adult, unspecified BMI ([facility]) Environmental and seasonal allergies Mixed hyperlipidemia ([facility]/HCC) Mixed hyperlipidemia Gastroesophageal reflux disease, unspecified whether esophagitis present Encounter for screening mammogram for malignant neoplasm of breast- Primary Type 2 diabetes mellitus without complication, without long-term current use of insulin ([facility]) BMI 40.0-44.9, adult ([facility]) Moderate persistent asthma without complication ([facility]) Pulmonary emphysema, unspecified emphysema type ([facility]) Primary hypertension ([facility]) Unspecified essential hypertension Encounter for annual wellness visit (AWV) in Medicare patient Current mild episode of major depressive disorder without prior episode (HCC) ([facility]) Type 2 diabetes mellitus without complication, without long-term current use of insulin ([facility])- Primary BMI 40.0-44.9, adult ([facility]) Primary hypertension ([facility]) Unspecified essential hypertension Current mild episode of major depressive disorder without prior episode (HCC) ([facility]) Type 2 diabetes mellitus without complication, without long-term current use of insulin ([facility])- Primary Primary hypertension ([facility]) Unspecified essential hypertension Mixed hyperlipidemia (/[facility]) Mixed hyperlipidemia Environmental and seasonal allergies Moderate persistent asthma without complication ([facility]) Candidiasis of skin Candidiasis of skin and nails Gastroesophageal reflux disease, unspecified whether esophagitis present Type 2 diabetes mellitus without complication, without long-term current use of insulin ([facility])- Primary Moderate persistent asthma without complication ([facility]) Obesity (BMI 30-39.9) Acute non-recurrent frontal sinusitis- Primary Environmental and seasonal allergies Non-recurrent acute suppurative otitis media of right ear without spontaneous rupture of tympanic membrane Chronic sinusitis of both maxillary sinuses- Primary Type 2 diabetes mellitus with 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, unspecified whether fdc insulin use ([facility]) Peripheral vascular disease, unspecified ([facility]) Peripheral vascular disease, unspecified Type 2 diabetes mellitus without complication, without long-term current use of insulin ([facility]) Obesity (BMI 30-39.9) Type 2 diabetes mellitus without complication, without long-term current use of insulin ([facility])- Primary Type 2 diabetes mellitus with diabetic peripheral angiopathy without gangrene ([facility]) Essential hypertension Unspecified essential hypertension Mixed hyperlipidemia (CMS/HCC) Mixed hyperlipidemia Primary hypertension ([facility]) Unspecified essential hypertension Environmental and seasonal allergies Chronic sinusitis of both maxillary sinuses Moderate persistent asthma without complication ([facility]) Gastroesophageal reflux disease, unspecified whether esophagitis present Type 2 diabetes mellitus without complication, without long-term current use of insulin ([facility]/HCC)- Primary Obstructive sleep apnea syndrome Obstructive sleep [...] of left foot documented in this encounter [facility] HealthcareEvaluation note* Diagnosis Type 2 diabetes mellitus [...] use of insulin (CMS/HCC) BMI 40.0-44.9, adult ([facility]) Moderate persistent asthma without complication (CMS/HCC) Pulmonary [...] 2 diabetes mellitus with 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, unspecified whether dogger insulin use (CMS/HCC) Peripheral vascular disease, unspecified (CMS/HCC) Peripheral vascular disease, unspecified Type 2 diabetes mellitus without complication, without long-term current use of insulin (CMS/HCC) Obesity (BMI 30-39.9) Type 2 diabetes mellitus without complication, without long-term current use of insulin (CMS/HCC)- Primary Type 2 diabetes mellitus with diabetic peripheral angiopathy without gangrene (CMS/[facility]) Essential hypertension Unspecified essential hypertension Mixed hyperlipidemia (CMS/HCC) Mixed hyperlipidemia Primary hypertension (CMS/[facility]) Unspecified essential hypertension Environmental and seasonal allergies Chronic sinusitis of both maxillary sinuses Moderate persistent asthma without complication (CMS/HCC) Gastroesophageal reflux disease, unspecified whether esophagitis present Type 2 diabetes mellitus without complication, without long-term current use of insulin (CMS/HCC)- Primary Obstructive sleep apnea syndrome Obstructive sleep apnea (adult) (pediatric) Pulmonary emphysema, unspecified emphysema type (CMS/[facility]) Moderate persistent asthma without complication (CMS/HCC) Essential hypertension Unspecified essential hypertension Obesity (BMI 30-39.9) Current mild episode of major depressive disorder without prior episode (HCC) ([facility]) Mixed hyperlipidemia (CMS/HCC) Mixed hyperlipidemia Primary hypertension (CMS/HCC) Unspecified essential hypertension Environmental and seasonal allergies Gastroesophageal reflux disease, unspecified whether esophagitis present Hypoglycemia Hypoglycemia, unspecified Needs flu shot Need for prophylactic vaccination and inoculation against influenza Type 2 diabetes mellitus without complication, without long-term current use of insulin (CMS/HCC)- Primary documented in this encounter [facility] HealthcareEvaluation note* [...] complication, without long-term current use of insulin ([facility]) BMI 40.0-44.9, adult ([facility]) Moderate persistent asthma without complication (CMS/[facility]) Pulmonary emphysema, unspecified emphysema type (CMS/HCC) Primary hypertension (CMS/[facility]) Unspecified essential hypertension Encounter for annual wellness visit (AWV) in Medicare patient Current mild episode of major depressive disorder without prior episode (HCC) ([facility]) Type 2 diabetes mellitus without complication, without long-term current use of insulin (CMS/HCC)- Primary BMI 40.0-44.9, adult ([facility]) Primary hypertension (CMS/[facility]) Unspecified essential hypertension Current mild episode of major depressive disorder without prior episode (HCC) ([facility]) Type 2 diabetes mellitus without complication, without long-term current use of insulin (/[facility])- Primary Primary hypertension (/[facility]) Unspecified essential hypertension Mixed hyperlipidemia (/[facility]) Mixed hyperlipidemia Environmental and seasonal allergies Moderate persistent asthma without complication (CMS/[facility]) Candidiasis of skin Candidiasis of skin and nails Gastroesophageal reflux disease, unspecified whether esophagitis present Type 2 diabetes mellitus without complication, without long-term current use of insulin ([facility]/HCC)- Primary Moderate persistent asthma without complication ([facility]) Obesity (BMI 30-39.9) Acute non-recurrent frontal sinusitis- Primary Environmental and seasonal allergies Non-recurrent acute suppurative otitis media of right ear without spontaneous rupture of tympanic membrane Chronic sinusitis of both maxillary sinuses- Primary Type 2 diabetes mellitus with 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, unspecified whether fdc insulin use (/[facility]) Peripheral vascular disease, unspecified (/[facility]) Peripheral vascular disease, unspecified Type 2 diabetes mellitus without complication, without long-term current use of insulin ([facility]) Obesity (BMI 30-39.9) Type 2 diabetes mellitus without complication, without long-term current use of insulin ([facility]/HCC)- Primary Type 2 diabetes mellitus with diabetic peripheral angiopathy without gangrene ([facility]) Essential hypertension Unspecified essential hypertension Mixed hyperlipidemia (CMS/HCC) Mixed hyperlipidemia Primary hypertension (CMS/HCC) Unspecified essential hypertension Environmental and seasonal allergies Chronic sinusitis of both maxillary sinuses Moderate persistent asthma without complication ([facility]/HCC) Gastroesophageal reflux disease, unspecified whether esophagitis present [...] mellitus with diabetic peripheral angiopathy without gangrene ([facility]) Morbid (severe) obesity due to excess calories (CMS/HCC) Essential (primary) hypertension (CMS/HCC) Unspecified essential hypertension Body mass index (BMI) 36.0-36.9, adult Obstructive sleep apnea syndrome Obstructive sleep apnea (adult) (pediatric) Pulmonary emphysema, unspecified emphysema type (CMS/HCC) Type 2 diabetes mellitus without complication, without long-term current use of insulin ([facility]) Current mild episode of major depressive disorder without prior episode (HCC) ([facility]) Encounter for screening mammogram for malignant neoplasm of breast Primary hypertension (CMS/[facility]) Unspecified essential hypertension Mixed hyperlipidemia (CMS/HCC) Mixed [...] major depressive disorder without prior episode (HCC) ([facility]) Type 2 diabetes mellitus without complication, without long-term current use of insulin- Primary BMI 40.0-44.9, adult ([facility]/HCC) Primary hypertension ([facility]) Unspecified essential hypertension Current mild episode of major depressive disorder without prior episode (HCC) ([facility]) Type 2 diabetes mellitus without complication, without long-term current use of insulin- Primary Primary hypertension ([facility]) Unspecified essential hypertension Mixed hyperlipidemia ([facility]/HCC) Mixed hyperlipidemia Environmental and seasonal allergies Moderate persistent asthma without complication ([facility]) Candidiasis of skin Candidiasis of skin and nails Gastroesophageal reflux disease, unspecified whether esophagitis present Type 2 diabetes mellitus without complication, without long-term current use of insulin- Primary Moderate persistent asthma without complication ([facility]) Obesity (BMI 30-39.9) Acute non-recurrent frontal sinusitis- Primary Environmental and seasonal allergies Non-recurrent acute suppurative otitis media of right ear without spontaneous rupture of tympanic membrane Chronic sinusitis of both maxillary sinuses- Primary Type 2 diabetes mellitus with 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, unspecified whether dogger insulin use ([facility]) Peripheral vascular disease, unspecified ([facility]) Peripheral vascular disease, unspecified Type 2 diabetes mellitus without complication, without long-term current use of insulin Obesity (BMI 30-39.9) Type 2 diabetes mellitus without complication, without long-term current use of insulin- Primary Type 2 diabetes mellitus with diabetic peripheral angiopathy without gangrene ([facility]) Essential hypertension Unspecified essential hypertension Mixed hyperlipidemia ([facility]/HCC) Mixed hyperlipidemia Primary hypertension ([facility]) Unspecified essential hypertension Environmental and seasonal allergies Chronic sinusitis of both maxillary sinuses Moderate persistent asthma without complication ([facility]) Gastroesophageal reflux disease, unspecified whether esophagitis present Type 2 diabetes mellitus without complication, without long-term current use of insulin- Primary Obstructive sleep apnea syndrome Obstructive sleep apnea (adult) (pediatric) Pulmonary emphysema, unspecified emphysema type ([facility]) Moderate persistent asthma without complication ([facility]) Essential hypertension Unspecified essential hypertension Obesity (BMI 30-39.9) Current mild episode of major depressive disorder without prior episode (HCC) ([facility]) Mixed hyperlipidemia ([facility]) Mixed hyperlipidemia Primary hypertension ([facility]) Unspecified essential hypertension Environmental and seasonal allergies Gastroesophageal reflux disease, unspecified whether esophagitis present Hypoglycemia Hypoglycemia, unspecified Needs flu shot Need for prophylactic vaccination and inoculation against influenza Encounter for annual wellness visit (AWV) in Medicare patient- Primary Type 2 diabetes mellitus with diabetic peripheral angiopathy without gangrene ([facility]) Morbid (severe) obesity due to excess calories (CMS/HCC) Essential (primary) hypertension (CMS/HCC) Unspecified essential hypertension Body mass index (BMI) 36.0-36.9, adult Obstructive sleep apnea syndrome Obstructive sleep apnea (adult) (pediatric) Pulmonary emphysema, unspecified emphysema type (CMS/HCC) Type 2 diabetes mellitus without complication, without long-term current use of insulin Current mild episode of major depressive disorder without prior episode (HCC) ([facility]) Encounter for screening mammogram for malignant neoplasm of breast Primary hypertension ([facility]) Unspecified essential hypertension Mixed hyperlipidemia (CMS/HCC) Mixed hyperlipidemia Environmental and seasonal allergies Moderate persistent asthma without complication (CMS/HCC) Gastroesophageal reflux disease, unspecified whether esophagitis present Type 2 diabetes mellitus without complication, without long-term current use of insulin- Primary documented in this encounter [facility] HealthcareEvaluation note* Diagnosis Type 2 diabetes mellitus without complication, without long-term current use of insulin- Primary Primary hypertension (CMS/HCC) Unspecified essential hypertension Moderate persistent asthma without complication ([facility]/HCC) Class 3 severe obesity due to excess [...] major depressive disorder without prior episode (HCC) ([facility]) Type 2 diabetes mellitus without complication, without long-term current use of insulin- Primary BMI 40.0-44.9, adult ([facility]) Primary hypertension (CMS/HCC) Unspecified essential hypertension Current mild episode of major depressive disorder without prior episode (HCC) ([facility]) Type 2 diabetes mellitus without complication, without [...] 2 diabetes mellitus with 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, unspecified whether fdc insulin use ([facility]) Peripheral vascular disease, unspecified ([facility]) Peripheral vascular disease, unspecified Type 2 diabetes mellitus without complication, without long-term current use of insulin Obesity (BMI 30-39.9) Type 2 diabetes mellitus without complication, without long-term current use of insulin- Primary Type 2 diabetes mellitus with diabetic peripheral angiopathy without gangrene ([facility]) Essential hypertension Unspecified essential hypertension Mixed hyperlipidemia (CMS/HCC) Mixed hyperlipidemia Primary hypertension (CMS/HCC) Unspecified essential hypertension Environmental and seasonal allergies Chronic sinusitis of both maxillary sinuses Moderate persistent asthma without complication ([facility]) Gastroesophageal reflux disease, unspecified whether esophagitis present Type 2 diabetes mellitus without complication, without long-term current use of insulin- Primary Obstructive sleep apnea syndrome Obstructive sleep apnea (adult) (pediatric) Pulmonary emphysema, unspecified emphysema type (CMS/[facility]) Moderate persistent asthma without complication ([facility]) Essential hypertension Unspecified essential hypertension Obesity (BMI 30-39.9) Current mild episode of major depressive disorder without prior episode (HCC) ([facility]) Mixed hyperlipidemia (CMS/HCC) Mixed hyperlipidemia Primary hypertension ([facility]/HCC) Unspecified essential hypertension Environmental and seasonal allergies Gastroesophageal reflux disease, unspecified whether esophagitis present Hypoglycemia Hypoglycemia, unspecified Needs flu shot Need for prophylactic vaccination and inoculation against influenza Encounter for annual wellness visit (AWV) in Medicare patient- Primary Type 2 diabetes mellitus with diabetic peripheral angiopathy without gangrene ([facility]) Morbid (severe) obesity due to excess calories (CMS/HCC) Essential (primary) hypertension ([facility]/HCC) Unspecified essential hypertension Body mass index (BMI) 36.0-36.9, adult Obstructive sleep apnea syndrome Obstructive sleep apnea (adult) (pediatric) Pulmonary emphysema, unspecified emphysema type ([facility]) Type 2 diabetes mellitus without complication, without long-term current use of insulin Current mild episode of major depressive disorder without prior episode (HCC) ([facility]) Encounter for screening mammogram for malignant neoplasm of breast Primary hypertension (CMS/HCC) Unspecified essential hypertension Mixed hyperlipidemia (CMS/HCC) Mixed hyperlipidemia Environmental and seasonal allergies Moderate persistent asthma without complication (CMS/[facility]) Gastroesophageal reflux disease, unspecified whether esophagitis present Environmental and seasonal allergies- Primary Morbid (severe) obesity due to excess calories ([facility]) documented in this encounter [facility] HealthcareEvaluation note* Diagnosis Type 2 diabetes mellitus without complication, without long-term current use of insulin (HCC)- Primary Primary hypertension Unspecified essential hypertension Moderate persistent asthma without complication (HCC) Class 3 severe obesity due to excess calories with serious comorbidity in adult, unspecified BMI Environmental and seasonal allergies Mixed hyperlipidemia Mixed hyperlipidemia Gastroesophageal reflux disease, unspecified whether esophagitis present Encounter for screening mammogram for malignant neoplasm of breast- Primary Type 2 diabetes mellitus without complication, without long-term current use of insulin (HCC) BMI 40.0-44.9, adult ([facility]) Moderate persistent asthma without complication (HCC) Pulmonary emphysema, unspecified emphysema type (HCC) Primary hypertension Unspecified essential hypertension Encounter for annual wellness visit (AWV) in Medicare patient Current mild episode of major depressive disorder without prior episode Type 2 diabetes mellitus without complication, without long-term current use of insulin (HCC)- Primary BMI 40.0-44.9, adult ([facility]) Primary hypertension Unspecified essential hypertension Current mild episode of major depressive disorder without prior episode Type 2 diabetes mellitus without complication, without long-term current use of insulin (HCC)- Primary Primary hypertension Unspecified essential hypertension Mixed hyperlipidemia Mixed hyperlipidemia Environmental and seasonal allergies Moderate persistent asthma without complication (HCC) Candidiasis of skin Candidiasis of skin and nails Gastroesophageal reflux disease, unspecified whether esophagitis present Type 2 diabetes mellitus without complication, without long-term current use of insulin (HCC)- Primary Moderate persistent asthma without complication (HCC) Obesity (BMI 30-39.9) Acute non-recurrent frontal sinusitis- Primary Environmental and seasonal allergies Non-recurrent acute suppurative otitis media of right ear without spontaneous rupture of tympanic membrane Chronic sinusitis of both maxillary sinuses- Primary Type 2 diabetes mellitus with 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, unspecified whether dogger insulin use (HCC) Peripheral vascular disease, unspecified Type 2 diabetes mellitus without complication, without long-term current use of insulin (HCC) Obesity (BMI 30-39.9) Type 2 diabetes mellitus without complication, without long-term current use of insulin (HCC)- Primary Type 2 diabetes mellitus with diabetic peripheral angiopathy without gangrene (HCC) Essential hypertension Unspecified essential hypertension Mixed hyperlipidemia Mixed hyperlipidemia Primary hypertension Unspecified essential hypertension Environmental and seasonal allergies Chronic sinusitis of both maxillary sinuses Moderate persistent asthma without complication (HCC) Gastroesophageal reflux disease, unspecified whether esophagitis present Type 2 diabetes mellitus without complication, without long-term current use of insulin (HCC)- Primary Obstructive sleep apnea syndrome Obstructive sleep apnea (adult) (pediatric) Pulmonary emphysema, unspecified emphysema type (HCC) Moderate persistent asthma without complication (HCC) Essential hypertension Unspecified essential hypertension Obesity (BMI 30-39.9) Current mild episode of major depressive disorder without prior episode Mixed hyperlipidemia Mixed hyperlipidemia Primary hypertension Unspecified essential hypertension Environmental and seasonal allergies Gastroesophageal reflux disease, unspecified whether esophagitis present Hypoglycemia Hypoglycemia, unspecified Needs flu shot Need for prophylactic vaccination and inoculation against influenza Encounter for annual wellness visit (AWV) in Medicare patient- Primary Type 2 diabetes mellitus with diabetic peripheral angiopathy without gangrene (HCC) Morbid (severe) obesity due to excess calories ([facility]) Essential (primary) hypertension Unspecified essential hypertension Body mass index (BMI) 36.0-36.9, adult Obstructive sleep apnea syndrome Obstructive sleep apnea (adult) (pediatric) Pulmonary emphysema, unspecified emphysema type (HCC) Type 2 diabetes mellitus without complication, without long-term current use of insulin (HCC) Current mild episode of major depressive disorder without prior episode Encounter for screening mammogram for malignant neoplasm of breast Primary hypertension Unspecified essential hypertension Mixed hyperlipidemia Mixed hyperlipidemia Environmental and seasonal allergies Moderate persistent asthma without complication (HCC) Gastroesophageal reflux disease, unspecified whether esophagitis present Environmental and seasonal allergies- Primary Morbid (severe) obesity due to excess calories ([facility]) Enlarged lymph node in neck- Primary documented in this encounter [facility] HealthcareEvaluation note* Diagnosis Type 2 diabetes mellitus without complication, without long-term current use of insulin (HCC)- Primary Primary hypertension Unspecified essential hypertension Moderate persistent asthma without complication (HCC) Class 3 severe obesity due to excess calories with serious comorbidity in adult, unspecified BMI Environmental and seasonal allergies Mixed hyperlipidemia Mixed hyperlipidemia Gastroesophageal reflux disease, unspecified whether esophagitis present Encounter for screening mammogram for malignant neoplasm of breast- Primary Type 2 diabetes mellitus without complication, without long-term current use of insulin (HCC) BMI 40.0-44.9, adult ([facility]) Moderate persistent asthma without complication (HCC) Pulmonary emphysema, unspecified emphysema type (HCC) Primary hypertension Unspecified essential hypertension Encounter for annual wellness visit (AWV) in Medicare patient Current mild episode of major depressive disorder without prior episode Type 2 diabetes mellitus without complication, without long-term current use of insulin (HCC)- Primary BMI 40.0-44.9, adult ([facility]) Primary hypertension Unspecified essential hypertension Current mild episode of major depressive disorder without prior episode Type 2 diabetes mellitus without complication, without long-term current use of insulin (HCC)- Primary Primary hypertension Unspecified essential hypertension Mixed hyperlipidemia Mixed hyperlipidemia Environmental and seasonal allergies Moderate persistent asthma without complication (HCC) Candidiasis of skin Candidiasis of skin and nails Gastroesophageal reflux disease, unspecified whether esophagitis present Type 2 diabetes mellitus without complication, without long-term current use of insulin (HCC)- Primary Moderate persistent asthma without complication (HCC) Obesity (BMI 30-39.9) Acute non-recurrent frontal sinusitis- Primary Environmental and seasonal allergies Non-recurrent acute suppurative otitis media of right ear without spontaneous rupture of tympanic membrane Chronic sinusitis of both maxillary sinuses- Primary Type 2 diabetes mellitus with 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, unspecified whether dogger insulin use (HCC) Peripheral vascular disease, unspecified Type 2 diabetes mellitus without complication, without long-term current use of insulin (HCC) Obesity (BMI 30-39.9) Type 2 diabetes mellitus without complication, without long-term current use of insulin (HCC)- Primary Type 2 diabetes mellitus with diabetic peripheral angiopathy without gangrene (HCC) Essential hypertension Unspecified essential hypertension Mixed hyperlipidemia Mixed hyperlipidemia Primary hypertension Unspecified essential hypertension Environmental and seasonal allergies Chronic sinusitis of both maxillary sinuses Moderate persistent asthma without complication (HCC) Gastroesophageal reflux disease, unspecified whether esophagitis present Type 2 diabetes mellitus without complication, without long-term current use of insulin (HCC)- Primary Obstructive sleep apnea syndrome Obstructive sleep apnea (adult) (pediatric) Pulmonary emphysema, unspecified emphysema type (HCC) Moderate persistent asthma without complication (HCC) Essential hypertension Unspecified essential hypertension Obesity (BMI 30-39.9) Current mild episode of major depressive disorder without prior episode Mixed hyperlipidemia Mixed hyperlipidemia Primary hypertension Unspecified essential hypertension Environmental and seasonal allergies Gastroesophageal reflux disease, unspecified whether esophagitis present Hypoglycemia Hypoglycemia, unspecified Needs flu shot Need for prophylactic vaccination and inoculation against influenza Encounter for annual wellness visit (AWV) in Medicare patient- Primary Type 2 diabetes mellitus with diabetic peripheral angiopathy without gangrene (HCC) Morbid (severe) obesity due to excess calories ([facility]) Essential (primary) hypertension Unspecified essential hypertension Body mass index (BMI) 36.0-36.9, adult Obstructive sleep apnea syndrome Obstructive sleep apnea (adult) (pediatric) Pulmonary emphysema, unspecified emphysema type (HCC) Type 2 diabetes mellitus without complication, without long-term current use of insulin (HCC) Current mild episode of major depressive disorder without prior episode Encounter for screening mammogram for malignant neoplasm of breast Primary hypertension Unspecified essential hypertension Mixed hyperlipidemia Mixed hyperlipidemia Environmental and seasonal allergies Moderate persistent asthma without complication (HCC) Gastroesophageal reflux disease, unspecified whether esophagitis present Environmental and seasonal allergies- Primary Morbid (severe) obesity due to excess calories ([facility]) Neck mass Swelling, mass, or lump in head and neck documented in this encounter [facility] HealthcareEvaluation note* Diagnosis Type 2 diabetes mellitus without complication, without long-term current use of insulin (HCC)- Primary Primary hypertension Unspecified essential hypertension Moderate persistent asthma without complication (HCC) Class 3 severe obesity due to excess calories with serious comorbidity in adult, unspecified BMI Environmental and seasonal allergies Mixed hyperlipidemia Mixed hyperlipidemia Gastroesophageal reflux disease, unspecified whether esophagitis present Encounter for screening mammogram for malignant neoplasm of breast- Primary Type 2 diabetes mellitus without complication, without long-term current use of insulin (HCC) BMI 40.0-44.9, adult ([facility]) Moderate persistent asthma without complication (HCC) Pulmonary emphysema, unspecified emphysema type (HCC) Primary hypertension Unspecified essential hypertension Encounter for annual wellness visit (AWV) in Medicare patient Current mild episode of major depressive disorder without prior episode Type 2 diabetes mellitus without complication, without long-term current use of insulin (HCC)- Primary BMI 40.0-44.9, adult ([facility]) Primary hypertension Unspecified essential hypertension Current mild episode of major depressive disorder without prior episode Type 2 diabetes mellitus without complication, without long-term current use of insulin (HCC)- Primary Primary hypertension Unspecified essential hypertension Mixed hyperlipidemia Mixed hyperlipidemia Environmental and seasonal allergies Moderate persistent asthma without complication (HCC) Candidiasis of skin Candidiasis of skin and nails Gastroesophageal reflux disease, unspecified whether esophagitis present Type 2 diabetes mellitus without complication, without long-term current use of insulin (HCC)- Primary Moderate persistent asthma without complication (HCC) Obesity (BMI 30-39.9) Acute non-recurrent frontal sinusitis- Primary Environmental and seasonal allergies Non-recurrent acute suppurative otitis media of right ear without spontaneous rupture of tympanic membrane Chronic sinusitis of both maxillary sinuses- Primary Type 2 diabetes mellitus with 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, unspecified whether dogger insulin use (HCC) Peripheral vascular disease, unspecified Type 2 diabetes mellitus without complication, without long-term current use of insulin (HCC) Obesity (BMI 30-39.9) Type 2 diabetes mellitus without complication, without long-term current use of insulin (HCC)- Primary Type 2 diabetes mellitus with diabetic peripheral angiopathy without gangrene (HCC) Essential hypertension Unspecified essential hypertension Mixed hyperlipidemia Mixed hyperlipidemia Primary hypertension Unspecified essential hypertension Environmental and seasonal allergies Chronic sinusitis of both maxillary sinuses Moderate persistent asthma without complication (HCC) Gastroesophageal reflux disease, unspecified whether esophagitis present Type 2 diabetes mellitus without complication, without long-term current use of insulin (HCC)- Primary Obstructive sleep apnea syndrome Obstructive sleep apnea (adult) (pediatric) Pulmonary emphysema, unspecified emphysema type (HCC) Moderate persistent asthma without complication (HCC) Essential hypertension Unspecified essential hypertension Obesity (BMI 30-39.9) Current mild episode of major depressive disorder without prior episode Mixed hyperlipidemia Mixed hyperlipidemia Primary hypertension Unspecified essential hypertension Environmental and seasonal allergies Gastroesophageal reflux disease, unspecified whether esophagitis present Hypoglycemia Hypoglycemia, unspecified Needs flu shot Need for prophylactic vaccination and inoculation against influenza Encounter for annual wellness visit (AWV) in Medicare patient- Primary Type 2 diabetes mellitus with diabetic peripheral angiopathy without gangrene (HCC) Morbid (severe) obesity due to excess calories ([facility]) Essential (primary) hypertension Unspecified essential hypertension Body mass index (BMI) 36.0-36.9, adult Obstructive sleep apnea syndrome Obstructive sleep apnea (adult) (pediatric) Pulmonary emphysema, unspecified emphysema type (HCC) Type 2 diabetes mellitus without complication, without long-term current use of insulin (HCC) Current mild episode of major depressive disorder without prior episode Encounter for screening mammogram for malignant neoplasm of breast Primary hypertension Unspecified essential hypertension Mixed hyperlipidemia Mixed hyperlipidemia Environmental and seasonal allergies Moderate persistent asthma without complication (HCC) Gastroesophageal reflux disease, unspecified whether esophagitis present Environmental and seasonal allergies- Primary Morbid (severe) obesity due to excess calories (CMS-HCC) Type 2 diabetes mellitus without complication, without long-term current use of insulin (HCC)- Primary Obstructive sleep apnea syndrome Obstructive sleep apnea (adult) (pediatric) Essential (primary) hypertension Unspecified essential hypertension Morbid (severe) obesity due to excess calories (CMS-HCC) Mixed hyperlipidemia Mixed hyperlipidemia Environmental and seasonal allergies Moderate persistent asthma without complication (HCC) Primary hypertension Unspecified essential hypertension Gastroesophageal reflux disease, unspecified whether esophagitis present Enlarged lymph node in neck documented in this encounter [facility] HealthcareEvaluation noteNo assessment information availableAcmc Healthcare System Work Phone: Evaluation note* Diagnosis Type 2 diabetes mellitus without complication, without long-term current use of insulin (HCC)- Primary Primary hypertension Unspecified essential hypertension Moderate persistent asthma without complication (HCC) Class 3 severe obesity due to excess calories with serious comorbidity in adult, unspecified BMI Environmental and seasonal allergies Mixed hyperlipidemia Mixed hyperlipidemia Gastroesophageal reflux disease, unspecified whether esophagitis present Encounter for screening mammogram for malignant neoplasm of breast- Primary Type 2 diabetes mellitus without complication, without long-term current use of insulin (HCC) BMI 40.0-44.9, adult (CMS-HCC) Moderate persistent asthma without complication (HCC) Pulmonary emphysema, unspecified emphysema type (HCC) Primary hypertension Unspecified essential hypertension Encounter for annual wellness visit (AWV) in Medicare patient Current mild episode of major depressive disorder without prior episode Type 2 diabetes mellitus without complication, without long-term current use of insulin (HCC)- Primary BMI 40.0-44.9, adult ([facility]) Primary hypertension Unspecified essential hypertension Current mild episode of major depressive disorder without prior episode Type 2 diabetes mellitus without complication, without long-term current use of insulin (HCC)- Primary Primary hypertension Unspecified essential hypertension Mixed hyperlipidemia Mixed hyperlipidemia Environmental and seasonal allergies Moderate persistent asthma without complication (HCC) Candidiasis of skin Candidiasis of skin and nails Gastroesophageal reflux disease, unspecified whether esophagitis present Type 2 diabetes mellitus without complication, without long-term current use of insulin (HCC)- Primary Moderate persistent asthma without complication (HCC) Obesity (BMI 30-39.9) Acute non-recurrent frontal sinusitis- Primary Environmental and seasonal allergies Non-recurrent acute suppurative otitis media of right ear without spontaneous rupture of tympanic membrane Chronic sinusitis of both maxillary sinuses- Primary Type 2 diabetes mellitus with 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, unspecified whether dogger insulin use (HCC) Peripheral vascular disease, unspecified Type 2 diabetes mellitus without complication, without long-term current use of insulin (HCC) Obesity (BMI 30-39.9) Type 2 diabetes mellitus without complication, without long-term current use of insulin (HCC)- Primary Type 2 diabetes mellitus with diabetic peripheral angiopathy without gangrene (HCC) Essential hypertension Unspecified essential hypertension Mixed hyperlipidemia Mixed hyperlipidemia Primary hypertension Unspecified essential hypertension Environmental and seasonal allergies Chronic sinusitis of both maxillary sinuses Moderate persistent asthma without complication (HCC) Gastroesophageal reflux disease, unspecified whether esophagitis present Type 2 diabetes mellitus without complication, without long-term current use of insulin (HCC)- Primary Obstructive sleep apnea syndrome Obstructive sleep apnea (adult) (pediatric) Pulmonary emphysema, unspecified emphysema type (HCC) Moderate persistent asthma without complication (HCC) Essential hypertension Unspecified essential hypertension Obesity (BMI 30-39.9) Current mild episode of major depressive disorder without prior episode Mixed hyperlipidemia Mixed hyperlipidemia Primary hypertension Unspecified essential hypertension Environmental and seasonal allergies Gastroesophageal reflux disease, unspecified whether esophagitis present Hypoglycemia Hypoglycemia, unspecified Needs flu shot Need for prophylactic vaccination and inoculation against influenza Encounter for annual wellness visit (AWV) in Medicare patient- Primary Type 2 diabetes mellitus with diabetic peripheral angiopathy without gangrene (HCC) Morbid (severe) obesity due to excess calories ([facility]) Essential (primary) hypertension Unspecified essential hypertension Body mass index (BMI) 36.0-36.9, adult Obstructive sleep apnea syndrome Obstructive sleep apnea (adult) (pediatric) Pulmonary emphysema, unspecified emphysema type (HCC) Type 2 diabetes mellitus without complication, without long-term current use of insulin (HCC) Current mild episode of major depressive disorder without prior episode Encounter for screening mammogram for malignant neoplasm of breast Primary hypertension Unspecified essential hypertension Mixed hyperlipidemia Mixed hyperlipidemia Environmental and seasonal allergies Moderate persistent asthma without complication (HCC) Gastroesophageal reflux disease, unspecified whether esophagitis present Environmental and seasonal allergies- Primary Morbid (severe) obesity due to excess calories ([facility]) Type 2 diabetes mellitus without complication, without long-term current use of insulin (HCC)- Primary Obstructive sleep apnea syndrome Obstructive sleep apnea (adult) (pediatric) Essential (primary) hypertension Unspecified essential hypertension Morbid (severe) obesity due to excess calories ([facility]) Mixed hyperlipidemia Mixed hyperlipidemia Environmental and seasonal allergies Moderate persistent asthma without complication (HCC) Primary hypertension Unspecified essential hypertension Gastroesophageal reflux disease, unspecified whether esophagitis present Enlarged lymph node in neck Neck mass- Primary Swelling, mass, or lump in head and neck documented in this encounter [facility]Evaluation note* Diagnosis Onset Date Resolution Status Admit Date Asthma-COPD overlap syndrome acuteOctober 2024 9:28amHTN (hypertension)acuteOctober 2024 9:28am Left hip painacuteOctober 2024 9:28amMixed hyperlipidemiaacuteOctober 2024 9:28amMorbid (severe) obesity due to excess caloriesacuteOctober 2024 9:28amSleep apneaacuteOctober 2024 9:28amType 2 diabetes mellitus with diabetic neuropathy, without long-term currenacuteOctober 2024 9:28am [facility] Work Phone: Hospital Discharge instructions No data available for this section [facility] [place] [facility] Discharge instructionsAmbulatory Orders* AMB POC Hgb A1C Time Frame: 01/06/25, Location: Determined By Patient [facility] Work Phone: Progress note No data available for this section [facility] [place] Reason for referral (narrative)No reason for referral information availableAcmc Healthcare System Work Phone: Summary Purpose Family History No Family History Records FoundNo Family History Records FoundNo Family History Records FoundNo Family History Records FoundNo Family History Records Found Advance Directives Advance Directive Response Recorded Date/ Time Advance Directives No November 2:07pm Chief Complaint and Reason for Visit Chief Complaint Admit Date Unknown October 09, 2024 1:39 pm 3M January 06, 2025 9 :28am Reason for Visit Admit Date Asthma-COPD overlap syndrome December 9:28am HTN (hypertension) January 06, 2025 9 :28am Left hip pain January 06, 2025 9 :28am Mixed hyperlipidemia January 06, 2025 9:28am Morbid (severe) obesity due to excess ca lories January 06, 2025 9:28am Sleep apnea January 06, 2025 9 :28am Type 2 diabetes mellitus wit h diabetic neuropathy, without long-term curren January 06, 2025 9:28am Additional Source Comments Patient Care team informatio n (unrecognized section and content) Team MemberRelationshipSpecialtyStart DateEnd Date Kuldip Cisneros MD [facility] - [facility]22Team MemberRelationshipSpecialtyStart DateEnd Date Kuldip Cisneros MD [address] [place] [phone] PCP - [facility]05/21/23 Kuldip Cisneros MD [address] [place] [phone] PCP - [facility]05/25/23 Rossana Alicia, REGIONAL CLINICAL DIRECTOR [address] [place] [phone] [facility]/23Team MemberRelationshipSpecialtyStart DateEnd Date Kuldip Cisneros MD [address] [place] [phone] [facility] - [facility] Kuldip Cisneros MD [address] [place] [phone] PCP - [employer]05/25/23 Rossana Alicia, AYDEE [address] [place] [phone] Nurse Practitionermily [facility]05/21/23Team MemberRelationshipSpecialtyStart DateEnd Date Kuldip Cisneros MD [address] [place] [address] PCP - GeneralFamily Medicine05/21/23 Kuldip Cisneros MD [address] [place] [address] PCP - [employer]05/25/23 Rossana Alicia NP [address] [place] [address] [facility]05/21/23Team MemberRelationshipSpecialtyStart DateEnd Date Kuldip Cisneros MD [address] [place] [address] PCP - [facility]05/21/23 Kuldip Cisneros MD [address] [place] [address] PCP - [employer]05/25/23 Rossana Alicia NP [address] [place] [address] [facility]05/21/23Team MemberRelationshipSpecialtyStart DateEnd Date Kuldip Cisneros MD [address] [place] [address] [facility] [facility]05/21/23 Kuldip Cisneros MD [address] [place] [address] [facility] - [facility]05/25/23 Rossana Alicia, AYDEE [address] [place] [address] [facility]05/21/23Team MemberRelationshipSpecialtyStart DateEnd Date Kuldip Cisneros MD [address] [place] [address] [facility] - [facility]05/21/23 Kuldip Cisneros MD [address] [place] [address] [facility] - [facility]05/25/23 Rossana Alicia NP [address] [place] [address] [facility]05/21/23Team MemberRelationshipSpecialtyStart DateEnd Date Kuldip Cisneros MD [address] [place] [address] PCP - [facility]05/21/23 Kuldip Cisneros MD [address] [place] [address] PCP - [facility]05/25/23 Rossana Alicia NP [address] [place] [address] [facility]05/21/23Team MemberRelationshipSpecialtyStart DateEnd Date Kuldip Cisneros MD [address] [place] [address] PCP - [facility]05/21/23 Kuldip Cisneros MD [address] [place] [address] [facility]05/[facility] Rossana Alicia NP [address] [place] [address] [facility]05/21/23Team MemberRelationshipSpecialtyStart DateEnd Date Kuldip Cisneros MD [address] [place] [address] PCP - [facility]05/21/23 Kuldip Cisneros MD [address] [place] [address] PCP - [facility]05/25/23 Rossana Alicia NP [address] [place] [address] [facility]05/21/23Team MemberRelationshipSpecialtyStart DateEnd Date Kuldip Cisneros MD [address] [place] [address] PCP - GeneralFamily Medicine05/21/23 Kuldip Cisneros MD [address] [place] [address] PCP - [employer]05/25/23 Rossana Alicia NP [address] [place] [address] [facility]05/21/23Team MemberRelationshipSpecialtyStart DateEnd Date Kuldip Cisneros MD [address] [place] [address] [facility]/23 Kuldip Cisneros MD [address] [place] [address] PCP - [employer]05/25/23 Rossana Alicia NP [address] [place] [address] [facility]05/21/23Team MemberRelationshipSpecialtyStart DateEnd Date Kuldip Cisneros MD [address] [place] [address] PCP - Generalmily Medicine05/21/23 Kuldip Cisneros MD [address] [place] [address] PCP - [employer]05/25/23 Rossana Alicia NP [address] [place] [address] [facility]05/21/23Team MemberRelationshipSpecialtyStart DateEnd Date Kuldip Cisneros MD [address] [place] [address] PCP - [facility]05/21/23 Kuldip Cisneros MD [address] [place] [address] PCP - [employer]05/25/23 Rossana Alicia NP [address] [place] [address] [facility]05/21/23Team MemberRelationshipSpecialtyStart DateEnd Date Kuldip Cisneros MD [address] [place] [address] PCP - [facility]05/21/23 Kuldip Cisneros MD [address] [place] [address] PCP - [employer]05/25/23 Rossana Alicia NP [address] [place] [address] [facility]05/21/23Team MemberRelationshipSpecialtyStart DateEnd Date Kuldip Cisneros MD [address] [place] [address] PCP - [facility]05/21/23 Kuldip Cisneros MD [address] [place] [address] PCP - [employer]05/25/23 Rossana Alicia NP [address] [place] [address] [facility]05/21/23Team MemberRelationshipSpecialtyStart DateEnd Date Kuldip Cisneros MD [address] [place] [address] PCP - [facility]05/21/23 Kuldip Cisneros MD [address] [place] [address] PCP - [facility]05/25/23 Rossana Alicia NP [address] [place] [address] [facility]05/21/23Team MemberRelationshipSpecialtyStart DateEnd Date Kuldip Cisneros MD [address] [place] [address] PCP - [facility]05/21/23 Kuldip Cisneros MD [address] [place] [address] PCP - [facility]05/25/23 Rossana Alicia NP [address] [place] [address] [facility]05/21/23Team MemberRelationshipSpecialtyStart DateEnd Date Kuldip Cisneros MD [address] [place] [address] PCP - [facility]05/21/23 Kuldip Cisneros MD [address] [place] [address] PCP - [employer]05/25/23 Rossana Alicia NP [address] [place] [address] [facility]05/21/23Team MemberRelationshipSpecialtyStart DateEnd Date Kuldip Cisneros MD [address] [place] [address] PCP - [facility]05/21/23 Kuldip Cisneros MD [address] [place] [address] PCP - [employer]05/25/23 Rossana Alicia NP [address] [place] [address] [facility]05/21/23Team MemberRelationshipSpecialtyStart DateEnd Date Kuldip Cisneros MD [address] [place] [address] PCP - GeneralFamily Medicine05/21/23 Kuldip Cisneros MD [address] [place] [address] PCP - [employer]05/25/23 Rossana Alicia, REGIONAL CLINICAL DIRECTOR [address] [place] [address] Nurse Practitionermily Medicine05/21/23Team MemberRelationshipSpecialtyStart DateEnd Date Kuldip Cisneros MD [address] [place] [address] PCP - [facility]05/21/23 Kuldip Cisneros MD [address] [place] [address] PCP - [employer]05/25/23 Rossana Alicia, REGIONAL CLINICAL DIRECTOR [address] [place] [address] [facility]05/21/23Team MemberRelationshipSpecialtyStart DateEnd Date Kuldip Cisneros MD [address] [place] [address] PCP - [facility]05/21/23 Kuldip Cisneros MD [address] [place] [address] PCP - [employer]05/25/23 Rossana Alicia NP [address] [place] [address] [facility]05/21/23Team MemberRelationshipSpecialtyStart DateEnd Date Kuldip Cisneros MD [address] [place] [address] PCP - [facility]05/21/23 Kuldip Cisneros MD [address] [place] [address] PCP - [facility]05/25/23 Rossana Alicia NP [address] [place] [address] [facility]05/21/23 Team Status: Inactive Member Role Status Dates Beverley Siegel Jr, MD Attending Provider Active Start: October 09, 2024 End: October 09, 2024Team MemberRelationshipSpecialtyStart DateEnd Date Kuldip Cisneros MD [address] [place] [address] PCP - [facility]05/21/23 Kuldip Cisneros MD [address] [place] [address] PCP - [facility]05/25/23 Rossana Alicia NP [address] [place] [address] [facility]05/21/23Team MemberRelationshipSpecialtyStart DateEnd Date Kuldip Cisneros MD [address] [place] [address] PCP - [facility]05/21/23 Kuldip Cisneros MD [address] [place] [address] PCP - [facility]05/25/23 Rossana Alicia NP [address] [place] [address] [facility]05/21/23 Team Status: Active Member Role Status Dates Rossana Alicia NP-C Primary Care Provider Active Team Status: Inactive Member Role Status Dates Rossana Alicia NP-C Primary Care Provider Active Start: January 06, 2025 End: January 06, 2025Rossana Alicia NP-CAttending ProviderActiveStart: January 06, 2025 End: January 06, 2025Team MemberRelationshipSpecialtyStart DateEnd Date Kuldip Cisneros MD PCP - [facility]05/21/23 Kuldip Cisneros MD [address] [place] [address] PCP - [facility]05/25/23 Rossana Alicia NP [facility]05/21/23 INFORMATION SOURCE (unrecogn ized section and content) DATE CREATED AUTHOR 06/01/2022 [facility] DATE CREATED AUTHOR AUTHOR'S ORGANIZ ATION 06/16/2022 [facility] DATE CREATED AUTHOR AUTHOR'S ORGANIZ ATION 10/16/2024 [facility] DATE CREATED AUTHOR AUTHOR'S ORGANIZ ATION 10/25/2024 [facility] DATE CREATED AUTHOR AUTHOR'S ORGANIZ ATION 11/01/2024 [facility] EPIC Reason for Visit (unrecogniz ed section and content) ReasonCommentsMed RefillReasonCommentsDiabetesReasonCommentsFoot ProblemBepaula Beavers is a 68 y.o. female. Patient relates Left 5th toenail is sore and discolored. NKI, Patient noticed about 2 weeks ago. Difficult to trim. PCP: Rossana Matamoros 03/06/24, A1C: 9.1 BS: 143ReasonCommentsMedicare Annual Wellness Visit InitialReasonCommentsSore ThroatReasonCommentsenlarged lymp nodeCT [facility] 09/12/24SpecialtyDiagnoses / ProceduresReferred By ContactReferred To Contact Otolaryngology Diagnoses Enlarged lymph node in neck Procedures NE OFFICE/OUTPATIENT NEW HIGH [facility] 60 MINUTES Rossana Alicia, REGIONAL CLINICAL DIRECTOR [address] [place] [address] Phone: tel: fax: Beverley Siegel MD [address] [facility] [address] [place] [address] Phone: tel: fax: Referral IDStatusReasonStart DateExpiration DateVisits RequestedVisits [id number] Specialty Services Required [id number] MassFollow up [facility] 10/01/24 FNA/PATH Mag 10/09/24 Goals (unrecognized section and content) Goals may be documented in a n alternate section FOR RECORDS PERTAINING TO PATIENTS WHO ARE [...] BE BASED ON THE PRIMARY CLINICAL RECORDS. [facility]. provides no warranty or guarantee of the accuracy or completeness of information in this document.
--- NOTE | 2025-01-30 12:37 | US_ITS ---
The [address] [address] Patient Name: JAYE PIRES MRN: [id number] date: 1955 Sex: F Assigned Patient Location: US Current Patient Location: US Accession/Order Number: [id number] Exam Date: 01/30/2025 12:40 Report Date: 01/30/2025 22:15 At the request of: BEVERLEY SIEGEL MD Procedure: US soft tissue head and neck Ultrasound assessment of the posterior portion right neck in region of palpable abnormality. Follow-up assessment Comparison 10/01/2024 In region of right neck lump there is an anechoic tubular structure measures 1.9 x 1.5 x 0.4 cm. This is adjacent to a lymph node measuring 6 x 5 x 4 mm. Additional smaller lymph node present. US/US soft tissue head and neck IMPRESSION: Stable anechoic tubular structure. Likely benign. Small lymph nodes redemonstrated. Similar finding. Likely reactive. No new findings. Impression dictated by: Ceasar Luis M.D. 01/30/2025 10:15 PM Dictation Location: [place] [address] Electronically authenticated by: [id number] Y Date: 01/30/2025 22:15
== END 2025-01-30 12:06 | disposition home or self-care (01) ==
LOC: US 12:06
PROVIDERS: PCP Nurse Practitioner; Visit Provider Otolaryngology
DX: R22.1 Localized swelling, mass and lump, neck (principal)
CPT/HCPCS: 76536

== ENCOUNTER 2025-01-30 12:09 | Outpatient (OUT) | payer MEDICARE, SELFPAY ==
--- OUTSIDE RECORDS SUMMARY | 2025-01-30 12:20 | XMS_ITS | CCD ---
Author Organization [facility] Care Team Providers Care Burner Shaft Name Role Phone ROSSANA ALICIA Primary Care Physician [phone] Julian BONILLA Attending Unavailable NILLJulian Attending Unavailable AICHALFONZO, ROSSANA Glass Referring Unavailable NILLJulian Attending Unavailable NILJulian Khoury Attending Unavailable AICHHOLZ, ROSSANA Glass Referring Unavailable AICHHOLZ, PUBLIC INFORMATION COORDINATOR ROSSANA Admitting Unavailable AICHHOLZ, PUBLIC INFORMATION COORDINATOR ROSSANA Attending Unavailable AICHHOLZ, PUBLIC INFORMATION COORDINATOR ROSSANA Consulting Unavailable AICHHOLZ, PUBLIC INFORMATION COORDINATOR ROSSANA Primary Care Unavailable NILL ., DR GUERRA Attending Unavailable NILL ., DR GUERRA Consulting Unavailable NILL ., DR GUERRA Admitting Unavailable AICHHOLZ, PUBLIC INFORMATION COORDINATOR ROSSANA Primary Care Unavailable GURPREET II, PHILIP Consulting Unavailable NABILA MAGANA Consulting Unavailable AICHHOLZ, PUBLIC INFORMATION COORDINATOR ROSSANA Admitting Unavailable AICHHOLZ, PUBLIC INFORMATION COORDINATOR ROSSANA Attending Unavailable AICHHOLZ, PUBLIC INFORMATION COORDINATOR ROSSANA Consulting Unavailable AICHHOLZ, PUBLIC INFORMATION COORDINATOR ROSSANA Primary Care Unavailable AICHHOLZ, PUBLIC INFORMATION COORDINATOR ROSSANA Primary Care Unavailable AICHHOLZ, PUBLIC INFORMATION COORDINATOR ROSSANA Admitting Unavailable AICHHOLZ, PUBLIC INFORMATION COORDINATOR ROSSANA Attending Unavailable AICHHOLZ, PUBLIC INFORMATION COORDINATOR ROSSANA Consulting Unavailable AICHHOLZ, PUBLIC INFORMATION COORDINATOR ROSSANA Primary Care Unavailable BOBBY, DR RUDDY Nguyen Consulting Unavailable AICHHOLZ, PUBLIC INFORMATION COORDINATOR ROSSANA Admitting Unavailable AICHHOLZ, PUBLIC INFORMATION COORDINATOR ROSSANA Attending Unavailable AICHHOLZ, PUBLIC INFORMATION COORDINATOR ROSSANA Consulting Unavailable Amelia CORTEZ, Kuldip Primary Care Provider [phone] Kuldip Cisneros MD Primary Care Provider Aichholz MINK SLICER, Rossana Unavailable Kuldip Cisneros MD Unavailable Timmis [...] DRUMMOND Attending Unavailable NABILA DRUMMOND Referring Unavailable Rosasna Greene Primary Care Provider Rossana Greene Attending Provider [phone] Kuldip Cisneros MD Primary Care Provider Rossana Alicia NP Unavailable Kuldip Cisneros MD Unavailable Allergies Allergy ClassificationReported Allergen(s)Allergy TypeDate of OnsetReaction(s) Facility (20 sources)Cefaclor; Translations: [cefaclor]Drug Fmjjskt00-65-7931Zqohhojc breathing (finding), [facility], [facility]Penicillin; Translations: [penicillin]Drug AllergyWeal (disorder), Abnormal breathing (finding)[facility] (3 sources)Streptococcus pneumoniae type 1 capsular polysaccharide [...] [pneumococcal 23-valent vaccine]Drug AllergyDyspnea (finding), Weal (disorder) [facility] [place] (1 source)CefaclorDrug Sfgichu50-50-5861Xyx [facility] (3 sources)PenicillinsDrug allergy (disorder)92-28-3693mpp and [facility] Rep[facility] (1 source)Pneumovax 23Drug allergy (disorder)62-79-1028[facility] (20 sources)PenicillinsDrug Qkxqmec22-64-9325Dlcne, [facility] ([facility] sources)Pneumococcal vaccineDrug Cpelfol31-87-4479Wymcf, Shortness of breath [facility] (3 sources)Influenza Virus Vaccines; Translations: [Influenza Virus Vaccines] Allergy to kfigngxye65-92-1769adu and [facility] (1 source)PenicillinsDrug allergy (disorder)75-79-0629[facility] (1 source)pneumococcal 13-valent conjugate vaccine; Translations: [pneumococcal 13-valent conjugate vaccine]Propensity to adverse reactions to drug (disorder) [facility] Rep[facility] (4 sources)Streptococcus pneumoniae serotype 14 capsular antigen diphtheria HOP702 protein conjugate vaccineDrug Mugtriy57-36-1527Ajozc, Shortness of breath [facility] Medications Current Medications MedicationDrug Class(es)DatesSig (Normalized)Sig (Original)[id number] 200 actuat albuterol 0.09 mg/actuat metered dose inhaler (20 sources)beta2-Adrenergic AgonistStart: 42-76-1989wqnf 1 puff(s) by inhalation four times daily as needed for wheezingAlbuterol Sulfate 90 mcg/actuation HFA aerosol inhaler Active 2 PUFF INHALATION Four times daily as needed for shortness of breath or wheezing 25.5 November 28, 2024 12:00am Complies with drug therapyStart: 08-16-2023 End: 21-65-6080wcym 2 puff(s) by inhalation every six hours for wheezing albuterol HFA 90 mcg/act inhaler Indications: Moderate persistent asthma without complication (HCC)Inhale 2 puffs every 6 (six) hours if needed for wheezing or shortness of breath 17 g 4 12/25/2023 ActiveStart: 03-05-2023 End: 72-37-1342anfk 2 puff(s) by inhalation every six hours for wheezing albuterol HFA 90 mcg/act inhaler Indications: Moderate persistent asthma without complication (CMS/HCC) Inhale 2 puffs every 6 (six) hours if needed for wheezing 18 g 1 03/05/2023 06/03/2023 ActiveamLODIPine 2.5 mg oral tablet (20 sources)Dihydropyridine Calcium Channel BlockerStart: 74-43-0768pswc 1 tablet by mouth once dailyAmlodipine 2.5 mg tablet Active 2.5 MG PO Daily December 18, 2024 12:00am Complies with drug therapyStart: 07-05-2023 End: 49-18-0300jhew 1 tablet by mouth once dailyamLODIPine (Norvasc) 2.5 MG tablet Indications: Primary hypertension Take 1 tablet (2.5 mg) by mouth Daily Take by mouth Daily. 90 tablet 1 06/12/2024 ActiveStart: 02-26-2023 End: 41-41-1049ubmz 1 tablet by mouth in the morningamLODIPine (Norvasc) 2.5 MG tablet Indications: Primary hypertension (CMS/HCC) Take 1 tablet (2.5 mg) by mouth in the morning. Take by mouth Daily.. 90 tablet 1 02/26/2023 05/27/2023 ActiveStart: 67-74-3826Ynnassf 2.5 mg Tab Refills(s) 0 Start Date: 03/13/19 Status: Orderedaspirin 81 mg oral tablet (20 sources)Platelet Aggregation Inhibitor, Nonsteroidal Anti-inflammatory Drug Start: 72-54-3776tvzv 1 tablet by mouth once dailyAspirin 81 mg tablet Active 81 MG PO Daily December 18, 2024 12:00am Complies with drug therapyStart: 11-05-2023 End: 78-30-9549Brotnby Low Dose 81 MG EC tablet 09/11/2024 ActiveStart: 02-26-2023 End: 16-09-3912bftp 1 tablet by mouth in the morningaspirin 81 MG EC tablet Indications: Type 2 diabetes mellitus without complication, without long-term current use of insulin (CMS/HCC) Take 1 tablet (81 mg) by mouth in the morning. 90 tablet 1 02/26/2023 05/27/2023 ActiveStart: 18-91-6548ader 1 mg by mouth once dailyaspirin 81 mg Oral EC Tab mg tab(s), Oral, Daily, Refills(s) 0 Start Date: 08/15/18 Status: Orderedatorvastatin 80 mg oral tablet (20 sources)HMG-CoA Reductase InhibitorStart: 07-05-2023 End: 87-81-8589rdgh 1 tablet by mouth once daily at bedtimeAtorvastatin 80 mg tablet Active 80 MG PO Daily at bedtime January 02, 2025 12:00am Complies with drug therapyStart: 02-26-2023 End: 10-86-5241axny 1 tablet by mouth in the morningatorvastatin (Lipitor) 80 MG tablet Indications: Type 2 diabetes mellitus without complication, without long- term current use of insulin (CMS/HCC) , Mixed hyperlipidemia (CMS/HCC) Take 1 tablet (80 mg) by mouth in the morning. 90 tablet 1 02/26/2023 05/27/2023 Active Start: 92-70-4943xtit 1 tablet by mouth once dailyatorvastatin 80 mg Tab 80 mg = 1 tab(s), Oral, Daily, Refills(s) 0 Start Date: 04/18/22 Status: Ordered azelastine hydrochloride 0.5 mg/ml ophthalmic solution (2 sources)Histamine-1 Receptor AntagonistStart: 09-01-2024 End: 50-62-8011exla 1 drop(s) into the eye(s) in the morningazelastine (Optivar) 0.05 % ophthalmic solution Indications: Environmental and seasonal allergies Ad carpenter inspector 1 drop into both eyes in the morning and 1 drop in the evening. Do all this for 10 days. 6mL 09/01/2024 09/11/2024 Activecetirizine hydrochloride 10 mg oral tablet (20 sources)Histamine-1 Receptor AntagonistStart: 07-05-2023 End: 34-62-0656ljwq 1 tablet by mouth once daily as neededCetirizine 10 mg tablet Active 10 MG PO Daily as needed January 02, 2025 12:00am Complies with drug therapyStart: 02-26-2023 End: 16-60-1901raua 1 tablet by mouth in the morningcetirizine (ZyrTEC) 10 MG tablet Indications: Environmental and seasonal allergies Take 1 tablet (10 mg) by mouth in the morning. 90 tablet 1 02/26/2023 05/27/2023 Activechondroitin sulfates 400 mg / glucosamine sulfate 500 mg oral tablet (11 sources) End: 93-75-7914ujpw 1 tablet by mouth in the morning, then take 1 tablet by mouth in the evening, then take 1 tablet by mouth at bedtimeglucosamine- chondroitin 500-400 MG tablet Take 1 tablet by mouth in the morning and 1 tablet in theevening and 1 tablet before bedtime. 03/06/2024 Discontinued (Therapy completed)Continuous Glucose [employer] (Dexcom G7 [employer]) device (13 sources)Start: 03-06-2024 End: 56-96-6371Itizaewesr Glucose [employer] (Dex[employer] G7 [employer]) device Indications: Type 2 diabetes mellitus without complication, without long-term current use of insulin (CMS/HCC) , Hypoglycemia 1 each Daily 1 each 03/06/2024 06/12/2024 Discontinued (Therapy completed)Start: 03-06-2024 End: 80-41-0586Teujaquiql Glucose [employer] (Dex[employer] G7 [employer]) device Indications: Type 2 diabetes mellitus without complication, without long-term current use of insulin (CMS/HCC) , Hypoglycemia 1 each Daily 1 each 03/06/2024 03/06/2024 Discontinued (Reorder)Start: 03-06-2024 End: 08-57-3235Filxjihefg Glucose [employer] (Dexcom G7 [employer]) device Indications: Type 2 diabetes mellitus without complication, without long-term current use of insulin (CMS/HCC) , Hypoglycemia 1 each Daily 1 each 03/06/2024 03/06/2025 Active End: 77-99-1466Xktrdqbhwu Glucose [employer] ([employer]ex[employer] G7 [employer]) device 1 each Daily 03/06/2024 Discontinued (Reorder)Continuous Glucose Sensor (Dexcom G7 Sensor) misc (8 sources)Start: 03-06-2024 End: 45-29-3922Ukxdzptcbs Glucose Sensor (Dexcom G7 Sensor) misc Indications: Type 2 diabetes mellitus without complication, without long-term current use of insulin (CMS/[facility]) , Hypoglycemia 1 each Daily 3 each 11 03/06/2024 04/05/2024 Active End: 36-76-6601Wkhwpuwyee Glucose Sensor (Dexcom G7 Sensor) misc 1 each Daily 03/06/2024 Discontinued (Reorder)dapagliflozin 10 mg oral tablet (20 sources)Sodium-Glucose Cotransporter 2 InhibitorStart: 08-16-2023 End: 26-17-9156onbu 1 tablet by mouth once dailyDapagliflozin Propanediol 10 mg tablet Active 10 MG PO Daily January 02, 2025 12:00am Complies with drug therapydexamethasone 1 mg/ml / neomycin 3.5 mg/ml / polymyxin b 85202 unt/ml ophthalmic suspension (13 sources)Aminoglycoside Antibacterial, Polymyxin-class Antibacterial, CorticosteroidStart: 72-21-8174cadu 1 drop(s) into the eye(s) four times daily eagbkwyq-hgglnpknj-ofyOOWYLwedpj (Maxitrol) 0.1 % ophthalmic suspension INSTILL 1 DROP INTO BOTH EYES FOUR TIMES DAILY FOR 5 DAYS 08/27/2024 Active0.5 ml dulaglutide 1.5 mg/ml auto-injector (2 sources)GLP-1 Receptor AgonistStart: 32-49-2197Ewrnqkbsn Pen 0.75 mg/0.5 mL subcutaneous solution Refills(s) 0 Start Date: 03/13/19 Status: Ordered dulaglutide (Trulicity) 3 MG/0.5ML solution pen-injector (1 source)Start: 02-26-2023 End: 48-97-6954ljndwi 3 mg by subcutaneous injection every weekdulaglutide (Trulicity) 3 MG/0.5ML solution pen-injector Indications: Type 2 diabetes mellitus without complication, without long-term current use of insulin ([facility]) Inject 3 mg under the skin 1 (one) time per week 12 each 1 02/26/2023 05/21/2023 Activefluticasone propionate 0.05 mg/actuat metered dose nasal spray (12 sources)CorticosteroidStart: 10-04-2023 End: 91-37-5962ruln 2 spray(s) nasal route once dailyfluticasone (Flonase) 50 MCG/ACT nasal spray Indications: Chronic sinusitis of both maxillary sinuses Administer 2 sprays into each nostril Daily Shake gently. Before first use, prime pump. After use, clean tip and replace cap. 48 g 1 12/05/2023 03/04/2024 ActiveFluticasone Furoate-Vilanterol (20 sources)Corticosteroid, beta2-Adrenergic AgonistStart: 62-42-7891Ippdauxxfdo Furoate-Vilanterol (Breo Ellipta) 200-25 mcg/dose blister with device Active 1 INH INHALATION Daily January 02, 2025 12:00am Complies with drug therapyStart: 07-05-2023 End: 84-88-8628juid 1 puff(s) by mouth once dailyFluticasone Furoate-Vilanterol (Breo Ellipta) 200-25 MCG/ACT aerosol powder Indications: Moderate persistent asthma without complication (HCC) Inhale 1 puff Daily Rinse mouth after use 3 each 1 10/06/2024 01/04/2025 ActiveStart: 02-26-2023 End: 64-99-5077wrgv 1 puff(s) by inhalation in the morningFluticasone Furoate- Vilanterol (Breo Ellipta) 200-25 MCG/ACT aerosol powder Indications: Moderate pe rsistent asthma without complication (CMS/HCC) Inhale 1 puff in the morning. 90 each 1 02/26/2023 05/27/2023 ActiveStart: 99-96-7348pfng 1 [IU] by inhalation once dailyBreo Ellipta 100 mcg-25 mcg inhalation powder 1 puff(s), Inhalation, Daily, 1 unit(s), Refill(s) 2,30 dose unit Start Date: 08/15/18 Status: Ordered glucosamine hydrochloride 1500 mg oral tablet (2 sources)Start: 84-05-7760covk 1500 mg by mouth once dailyglucosamine 1,500 mg, Oral, Daily, Refills(s) 0 Start Date: 08/15/18 Status: Ordered hydroCHLOROthiazide 25 mg oral tablet (20 sources)Thiazide DiureticStart: 01-17-2024 End: 96-55-0189dkut 1 tablet by mouth once dailyHydrochlorothiazide 25 mg tablet Active 25 MG PO Daily January 02, 2025 12:00am Complies with drug therapy Start: 07-05-2023 End: 88-97-3644strl 1 tablet by mouth once dailyhydroCHLOROthiazide (HYDRODiuril) 25 MG tablet Indications: Primary hypertension (CMS/HCC) Take 1 ta blet (25 mg) by mouth Daily 90 tablet 1 07/05/2023 12/05/2023 DiscontinuedStart: 02-26-2023 End: 22-76-1147dbav 1 tablet by mouth in the morninghydroCHLOROthiazide (HYDRODiuril) 25 MG tablet Indications: Primary hypertension (CMS/HCC) Take 1 ta blet (25 mg) by mouth in the morning. 90 tablet 1 02/26/2023 05/27/2023 Active Start: 40-45-1570vwpmrdzdyhkihnftzec 25 mg oral tablet Refills(s) 0 Start Date: 03/13/19 Status: OrderedmetFORMIN hydrochloride 500 mg oral tablet (20 sources)BiguanideStart: 07-05-2023 End: 81-38-1181qqah 1 tablet by mouth twice daily at mealtimeMetformin 500 mg tablet Active 500 MG PO Twice daily with meals January 02, 2025 12:00am Complieswith drug therapyStart: 02-26-2023 End: 26-81-2067qevd 1 tablet by mouth in the morningmetFORMIN (Glucophage) 500 MG tablet Indications: Type 2 diabetes mellitus without complication, without long-term current use of insulin (CMS/HCC) Take 1 tablet (500 mg) by mouth in the morning and 1 tablet (500 mg) in the evening. Take with meals. 180 tablet 1 02/26/2023 05/27/2023 ActiveStart: 48-05-5578zoolgzjnh 500 mg oral tablet Refills(s) 0 Start Date: 03/13/19 Status: OrderedmethylPREDNISolone (2 sources)CorticosteroidStart: 09-01-2024 End: 06-37-3924eeqvmlWHCQNAPjkixp (Medrol Dospak) 4 MG tablets Indications: Environmental and seasonal allergies Take with food Follow schedule on package instructions 21 tablet 09/01/2024 09/08/2024 Activemetoprolol tartrate 25 mg oral tablet (20 sources)beta-Adrenergic BlockerStart: 89-10-9993plxi 1 tablet by mouth twice dailyMetoprolol Tartrate 25 mg tablet Active 25 MG PO Twice daily January 02, 2025 12:00am Complies with drug therapyStart: 07-05-2023 End: 28-32-1861ervq 1 tablet by mouth in the morningmetoprolol tartrate (Lopressor) 50 MG tablet Indications: Primary hypertension Take 1 tablet (50 mg) by mouth in the morning and 1 tablet (50 mg) before bedtime. 180 tablet 1 10/06/2024 01/04/2025 ActiveStart: 02-26-2023 End: 29-96-4050ogdk 1 tablet by mouth in the morningmetoprolol tartrate (Lopressor) 50 MG tablet Indications: Primary hypertension (CMS/HCC) Take 1 tabl et (50 mg) by mouth in the morning and 1 tablet (50 mg) before bedtime. 180 tablet 1 02/26/2023 05/27/2023 ActiveStart: 97-90-2468riuf 1 tablet by mouth once dailyMetoprolol tartrate 25 mg Tab 25 mg = 1 tab(s), Oral, Daily, # 30 tab(s), Refills(s) 0 Start Date: 08/15/18 Status: Orderednystatin 100 unt/mg topical powder (20 sources)Polyene AntifungalStart: 23-19-4336Jiyhkh 054904 UNIT/GM powder 04/01/2024 ActiveStart: 00-84-2242Crnaxp 913877 UNIT/GM powder APPLY TO AFFECTED AREA TWICE A DAY FOR 15 DAYS 04/01/2024 ActiveStart: 98-92-4197Rsigai 870745 UNIT/GM powder Apply 1 application topically in the morning and 1 application before bedtime. to affected area. 0 12/12/2022 Activenystatin topical 100,000 units/g powder (2 sources)Start: 89-82-3202kmvudwij topical 100,000 units/g powder danny, Topical, TID, Refill(s) 0 Start Date: 08/15/18 Status: Orderedomeprazole 20 mg delayed release oral capsule (20 sources)Proton Pump InhibitorStart: 07-05-2023 End: 43-04-8401chxk 1 capsule by mouth once dailyOmeprazole 20 mg capsule,delayed release(DR/EC) Active 20 MG PO Daily January 02, 2025 12:00am Complies with drug therapyStart: 02-26-2023 End: 39-73-1117tibo 1 capsule by mouth before mealtimeomeprazole (PriLOSEC) [address] capsule Indications: Gastroesophageal reflux disease, unspecified whether esophagitis present Take 1 capsule (20 mg) by mouth in the morning. Take before meals. 90 capsule 1 02/26/2023 05/27/2023 ActiveProAir HFA 90 mcg/inh inhalation aerosol (2 sources)Start: 24-52-0001noas 1 puff(s) by inhalation four times dailyProAir HFA 90 mcg/inh inhalation aerosol puff(s), Inhalation, QID, Refill(s) 0 Start Date: 08/15/18 Status: Orderedsertraline 50 mg oral tablet (1 source)Serotonin Reuptake InhibitorStart: 04-10-2023 End: 02-53-4864ataigvwzfx (Zoloft) 50 MG tablet Indications: Current mild episode of major depressive disorder without prior episode (HCC) (CMS/HCC) Take 1 tablet (50 mg) by mouth in the morning. Start with 1/2 pill daily for 7 days, then increase to 1 pill. 30 tablet 1 04/10/2023 05/10/2023 ActiveTirzepatide (1 source)Start: 52-25-8192Tfvjfqtqgwk (Mounjaro) 12.5 mg/0.5 mL pen injector Active 12.5 MG SUBCUT every week December 12:00am Complies with drug therapyTirzepatide (Mounjaro) 10 MG/0.5ML solution auto-injector (17 sources)Start: 10-06-2024 End: 69-88-0346Ajeobditjed (Mounjaro) 10 MG/0.5ML solution auto-injector Indications: Type 2 diabetes mellitus without complication, without long-term current use of insulin (HCC) Inject 10 mg under the skin every 7 (seven) days 6 mL 1 10/06/2024 12/29/2024 ActiveStart: 08-04-2024 End: 09-92-7257Qnnfhgjpjak (Mounjaro) 10 MG/0.5ML solution auto-injector Indications: Type 2 diabetes mellitus without complication, without long-term current use of insulin (HCC) Inject 10 mg under the skin every 7 (seven) days 6 mL 1 08/04/2024 10/06/2024 Discontinued (Reorder)Start: 08-04-2024 End: 57-38-3189Qlvoiqxxphn (Mounjaro) 10 MG/0.5ML solution auto-injector Indications: Type 2 diabetes mellitus without complication, without long-term current use of insulin (HCC) Inject 10 mg under the skin every 7 (seven) days 6 mL 1 08/04/2024 10/27/2024 ActiveStart: 08-04-2024 End: 98-21-4943Habjeyplmcl (Mounjaro) 10 MG/0.5ML solution auto-injector Indications: Type 2 diabetes mellitus without complication, without long-term current use of insulin Inject 10 mg under the skin every 7 (seven) days 6 mL 1 08/04/2024 10/27/2024 ActiveTirzepatide (Mounjaro) 2.5 MG/0.5ML solution pen-injector (6 sources) End: 97-85-6052Lccftrgumdp (Mounjaro) 2.5 MG/0.5ML solution pen-injector Indications: Type 2 Diabetes Mellitus Inject 2.5 mg under the skin every 7 (seven) days 01/17/2024 Discontinued (Therapy completed)Tirzepatide (Mounjaro) 2.5 MG/0.5ML solution pen-injector Indications: Type 2 Diabetes Mellitus Inject 2.5 mg under the skin every 7 (seven) days ActiveTirzepatide (Mounjaro) 5 MG/0.5ML solution pen-injector (7 sources)Start: 12-18-2023 End: 20-29-2047Dvpzldxubsh (Mounjaro) 5 MG/0.5ML solution pen-injector Indications: Type 2 diabetes mellitus without complication, without long-term current use of insulin (CMS/HCC) Inject 5 mg under the skin every7 (seven) days 6 mL 1 12/18/2023 03/06/2024 Discontinued (Therapy completed)Start: 12-18-2023 End: 53-01-6259Xdztcqnjvoj (Mounjaro) 5 MG/0.5ML solution pen-injector Indications: Type 2 diabetes mellitus without complication, without long-term current use of insulin (CMS/HCC) Inject 5 mg under the skin every7 (seven) days 6 mL 1 12/18/2023 03/11/2024 ActiveTirzepatide (Mounjaro) 7.5 MG/0.5ML solution auto-injector (7 sources)Start: 03-06-2024 End: 05-08-1574Gsyopkmbqma (Mounjaro) 7.5 MG/0.5ML solution auto-injector Indications: Type 2 diabetes mellitus without complication, without long-term current use of insulin (CMS/HCC) Inject 7.5 mg under the skin every 7 (seven) days 12 mL 1 03/06/2024 05/29/2024 Active Completed/Discontinued Medications MedicationDrug Class(es)DatesSig (Normalized)Sig (Original)doxycycline hyclate 100 mg oral tablet (3 sources)Tetracycline-class DrugStart: 10-04-2023 End: 14-75-1315ovoneoqfluz (Vibra-Tabs) 100 MG tablet Indications: Chronic sinusitis of both maxillary sinuses 2 pills day #1, then 1 pill daily for 20 days Take with a full glass of water and do not lie down for at least 30 minutes after. 22 tablet 10/04/2023 12/05/2023 Discontinued (Therapy completed)Glucose Blood (FREESTYLE LITE TEST ) (1 source) End: 11-75-4131Wxezevm Blood (FREESTYLE LITE TEST ) 1 each by In Vitro route Daily 2024 Discontinued (Reorder)Mounjaro 7.5 MG/0.5ML solution auto-injector (6 sources)Start: 05-26-2024 End: 46-72-8312Fldzmoup 7.5 MG/0.5ML solution auto-injector Inject 7.5 mg as directed every 7 (seven) days 05/26/2024 08/04/2024 Discontinued (Ineffective) Start: 77-01-1835Yzcgwpxg 7.5 MG/0.5ML solution auto-injector Inject 7.5 mg as directed every 7 (seven) days 05/26/2024 Activesemaglutide 7 mg oral tablet (6 sources)Start: 09-04-2023 End: 64-15-7904bypo 1 tablet by mouth before mealtimesemaglutide (Rybelsus) 7 MG tablet Indications: Type 2 diabetes mellitus without complication, without long-term current use of insulin (CMS/HCC) Take 1 tablet (7 mg) by mouth in the morning. Take before meals. 90 tablet 1 09/04/2023 12/05/2023 Discontinued (Ineffective) End: 32-75-2912xyqj 1 tablet by mouth before mealtimesemaglutide (Rybelsus) 3 MG tablet Indications: Type 2 Diabetes Mellitus Take 3 mg by mouth in the morning. Take before meals. 12/05/2023 DiscontinuedTirzepatide (1 source)Start: 01-02-2025 End: 80-12-0624Mzalkdpobok (Mounjaro) 10 mg/0.5 mL pen injector Discontinued 10 MG SUBCUT every week December 12:00am January 06, 2025 10:15am Problems Active Problems Problem ClassificationProblemDateDocumented DateEpisodic/ChronicAsthma (20 sources)Asthma; Translations: [Moderate asthma]Onset: ChronicChronic obstructive pulmonary disease and bronchiectasis (20 sources)Pulmonary emphysema; Translations: [Emphysema, unspecified]Onset: 12-23-2021 Resolved: [id number] mellitus with complications (20 sources)Type 2 diabetes mellitus with diabetic peripheral angiopathy without gangrene; Translations: [Type 2 diabetes mellitus with peripheral angiopathy] Onset: [id number] mellitus without complication (20 sources)Diabetes mellitus; Translations: [Type 2 diabetes mellitus without complications]Onset: [id number] of lipid metabolism (20 sources)Hyperlipidemia; Translations: [Hyperlipidemia, unspecified]Onset: [id number]i disorders (8 sources)Gastroesophageal reflux disease; Translations: [Gastro-esophageal reflux disease without esophagitis]49-52-5393YeokfxjAaadkwxul hypertension (20 sources)Benign essential hypertension; Translations: [Essential (primary) hypertension]Onset: 05-23-2022 Resolved: [id number] disorders (20 sources)Mild major depression, single episode; Translations: [Major depressive disorder, single episode, mild]Onset: [id number] Other aftercare (1 source)parts counterman (current) use of aspirin; Translations: [[facility] CURRENT USE OF ASPIRIN]Onset: 98-96-1000WahftidjUosae aftercare (1 source)parts counterman (current) use of oral hypoglycemic drugs; Translations: [PENSION FUND MANAGER USE ORAL HYPOGLYCEMIC DX]Onset: 99-90-3179ZdmncdvhBjowh and unspecified benign neoplasm (2 sources)Benign neoplasm of ascending colon; Translations: [Benign neoplasm of ascending colon]Onset: 85-64-3651HnzhbcbcHafme and unspecified benign neoplasm (2 sources)Benign neoplasm of transverse colon; Translations: [Benign neoplasm of transverse colon]Onset: 10-00-1862YpqgbktnKvots and unspecified benign neoplasm (1 source)Benign neoplasm of ascending colon; Translations: [BENIGN NEOPLASM OF ASCENDING COLON]Onset: 27-54-3212MlwksmelXxblx and unspecified benign neoplasm (1 source)Benign neoplasm of transverse colon; Translations: [BENIGN NEOPLASM OF TRANSVERSE COLON]Onset: 41-41-4598EktluorjVjpcm circulatory disease (1 source)Other specified symptoms and signs involving the circulatory and respiratory systems; Translations:[Other specified symptoms and signs involving the circulatory and respiratory systems]Onset: 40-35-2311UyjzzjawDnfhi connective tissue disease (2 sources)Pain of toe of left foot; Translations: [Pain in left toe(s)] 92-83-6448ZzysiropQslfr connective tissue disease (2 sources)Capsulitis; Translations: [Other enthesopathy of left foot and ankle] 85-05-3962UekcoikyDjldn connective tissue disease (2 sources)Swelling of toe of left foot; Translations: [Other specified soft tissue disorders]71-75-5114VoylhvzpLaosu endocrine disorders (20 sources)Hypoglycemia; Translations: [Hypoglycemia, unspecified]Onset: 843645-85-7220SkbxfzdWtsyd non-traumatic joint disorders (2 sources)Hip pain; Translations: [Pain in left hip]71-84-8469PmiluwsrBscdg nutritional; endocrine; and metabolic disorders (2 sources)Morbid jbxstoj30-22-6471PepjjnrWtrvo nutritional; endocrine; and metabolic disorders (1 source)Morbid (severe) obesity due to excess calories; Translations: [MORBID SEVERE OBES D/T EXCESS HUNTER]Onset: 85-18-0727HmuvxvtXsjkq nutritional; endocrine; and metabolic disorders (1 source)Body mass index (BMI) 40.0-44.9, adult; Translations: [BODY MASS INDEX BMI 40.0-44.9 ADULT]Onset: 48-29-7607McmjjlwUbdii nutritional; endocrine; and metabolic disorders (20 sources)Body mass index 40+ - severely obese; Translations: [Body mass index (BMI) 40.0-44.9, adult]Onset: 329349-84-1889BepzhqqBbkxz nutritional; endocrine; and metabolic disorders (20 sources)Obesity caused by energy imbalance; Translations: [Morbid (severe) obesity due to excess calories]Onset: 130376-18-3355AotsspgCyrqa skin disorders (2 sources)Dystrophia unguium; Translations: [Nail dystrophy]04-52-9337Pkakarjp Other skin disorders (4 sources)Mass of neck; Translations: [Localized swelling, mass and lump, neck] 82-02-5966WvfowmxiXvrvy upper respiratory disease (20 sources)Allergic disposition; Translations: [Other allergic rhinitis]Onset: 643435-45-7622EdpxhluZvved upper respiratory disease (2 sources)Naoipt81-05-0272MlnxzxumHzrft upper respiratory infections (20 sources)Chronic bilateral maxillary sinusitis; Translations: [Chronic maxillary sinusitis]Onset: 10-01-2023 Resolved: 844260-21-5662DronlckJzkxrusffq and visceral atherosclerosis (2 sources)Peripheral vascular einrvzq30-76-6727PvysdmuBdohhlxq codes; unclassified (20 sources)Sleep apnea; Translations: [Sleep apnea, unspecified]Onset: 918645-70-6674VxubfdtKdeigxzf codes; unclassified (1 source)Sleep apnea, unspecified; Translations: [SLEEP APNEA UNSPECIFIED] Onset: 72-99-4532VuhzytqDsbymuzx codes; unclassified (6 sources)Obstructive sleep apnea syndrome; Translations: [Obstructive sleep apnea (adult) (pediatric)]79-51-7638QpikcwlAntohgtp codes; unclassified (2 sources)Edema of lower sbnkwlnem07-50-3470BjagmqpjVfoqbnsa codes; unclassified (1 source)Family history of malignant neoplasm of breast; Translations: [FAMILY HX MALIG NEOPLASM OF BREAST]Onset: 71-88-8622MueedjnsFhdyovjz codes; unclassified (1 source)Family history of malignant neoplasm of bladder; Translations: [FAM HX MALIGNANT NEOPLASM BLADDER]Onset: 32-19-2598NkuhkoouWmycsodu codes; unclassified (1 source)Family history of malignant neoplasm of other organs or systems; Translations: [FAM HX MALIG NEOPLASM OTH ORGN/SYS]Onset: 07-33-8856Vpiesjra Residual codes; unclassified (1 source)Acquired absence of other specified parts of digestive tract; Translations: [ACQ ABSENCE OTH PART DIGESTV TRACT]Onset: 27-46-5143Sstfgwvn Retinal detachments; defects; vascular occlusion; and retinopathy (2 sources)Retinal artery danfsllae52-96-0690TmwulcmTkcgofpsy and history of mental health and substance abuse codes (1 source)Personal history of nicotine dependence; Translations: [PERSONAL HISTORY OF NICOTINE DEPEND]Onset: 01-25-5971JglueaenSxbizihisrjv (2 sources)Patient encounter kideug61-98-4648Sxuvpxnpkehw (3 sources)CONTACT W/AND (SUSP) EXPOS COVID-19; Translations: [CONTACT W/AND (SUSP) EXPOS COVID-19]Onset: 09-03-2021 Past or Other Problems Problem ClassificationProblemDateDocumented DateEpisodic/ChronicImmunizations and screening for infectious disease (20 sources)Needs influenza immunization; Translations: [Encounter for immunization]Onset: 880794-29-3677DikdwjhtEdswpaslnqoci (18 sources)Lymphadenopathy of head AND/OR neck; Translations: [Localized enlarged lymph nodes]Onset: 008761-93-7167DmblliytUdqg disorders (20 sources)Mood disordersOnset: 04-10-2023 Resolved: 399756-43-8475Gfabhvo (20 sources)Candidiasis of skin; Translations: [Candidiasis of skin and nail] Onset: 959009-33-3279XaunlazxAfuou nutritional; endocrine; and metabolic disorders (20 sources)Severe obesity; Translations: [Morbid (severe) obesity due to excess calories]Onset: 02-26-2023 Resolved: 388471-50-2855SaqbdlySovnm nutritional; endocrine; and metabolic disorders (20 sources)Body mass index 30+ - obesity; Translations: [Obesity, unspecified] Onset: 08-16-2023 Resolved: 234350-99-4385DgzccwrJrefu screening for suspected conditions (not mental disorders or infectious disease) (20 sources)Screening for malignant neoplasm of colon done; Translations: [Encounter for screening for malignant neoplasm of colon]Onset: 04-18-2022 EpisodicOther upper respiratory infections (20 sources)Acute frontal sinusitis; Translations: [Acute frontal sinusitis, unspecified]Onset: 09-12-2023 Resolved: 949758-96-6683BxbvhmqeXgcqva media and related conditions (20 sources)Acute suppurative otitis media without spontaneous rupture of ear drum; Translations: [Acute suppurative otitis media without spontaneous rupture of ear drum, right ear]Onset: 09-12-2023 Resolved: 685425-98-2675JbrecqklQqnoigwbwwhk (1 source)CONTACT W/AND (SUSP) EXPOS COVID-19; Translations: [CONTACT W/AND (SUSP) EXPOS COVID-19]Onset: 09-01-2021 Results Test NameValueInterpretationReference RangeFacilityCoding Summaryon 10-17-2024 Coding SummaryHTMLBase 64 ZvpuzeriXCg8dYm+PGhlYWQ+WC7RDUTgU08hlHKfzM5sG4RNNFuZApzaEGRNXNjLTmTzmxPcER3mqVAd ZXJu [file] c2U (more content not included)...[facility] AP Resultson 77-15-2492Agn - AP [id number]#1.00OTGTIFF [facility] ColumbusPathology Sendout Teston 34-66-1359Pwqewhwvg Send Out.See ReportNormalMagruder HospitalComment on above:Order Comment: 10/09/2024@1328 FNA right neck mass 8 slides obtained and 1 cytolyte obtainedPerformed By: #### [id number] #### [facility] (DEFAULT) [address] [place] [address]Tfr 10-09-2024L Specimen: [id number] Received: 10/13/24 Status: JESENIA Lucio Num: [id number] Spec Type: Cytology Subm Dr: BEVERLEY SIEGEL MD Tissues: A FNA SLIDES NOPATH (FNA RT NECK MASS) Procedures: HE/2, Cyto Int and Re, PAPSTN/9, CBLADRIANA Age/ Patient Sex Location Account Attending Physician Bhavana Beavers 69/F RUI [id number] BEVERLEY SIEGEL MD SPEC NUM: [id number] RECD: 10/13/24 STATUS: JESENIA LUCIO NUM: [id number] SWATI: 10/09/24-[address] [facility] [address]: BEVERLEY SIEGEL MD ENTERED: 10/13/[address] [facility] [address]: Simon Coleman SPEC TYPE: Cytology DEPT: ALROYCE ENTERED BY: [id number] RECV BY: [id number] ORDERED: HE/2, Cyto Int and Re, PAPSTN/9, [...] smeared slides for pap for microscopic examination. (/ga) Specimen: [id number] Received: 10/13/24 Status: JESENIA Lucio Num: [id number] Spec Type: Cytology Subm Dr: BEVERLEY SIEGEL MD Tissues: A FNA SLIDES NOPATH (FNA RT NECK MASS) Procedures: HE/2, Cyto Int and Re, PAPSTN/9, CBLOCK Patient: Bhavana Beavers [id number] (Continued) Specimen: [id number] Received: 10/13/24 (Continued) Signed (signature on file) Greg Magana MD 10/15/24 0953 Specimen: [id number] Received: 10/13/24 Status: JESENIA Lucio Num: [id number] Spec Type: Cytology Subm Dr: BEVERLEY SIEGEL MD Tissues: A FNA SLIDES NOPATH (FNA RT NECK MASS) Procedures: HE/2, Cyto Int and Re, PAPSTN/9, CBLOCK Patient: Bhavana Beavers [id number] (Continued) Specimen: [id number] Received: 10/13/24 (Continued) Microscopic Description Microscopic examination is performed. CPT Codes 44401, 70505, 96691 Specimen: MC25 Received: 10/13/24 Status: JESENIA Lucio Num: [id number] Spec Type: Cytology Subm Dr: BEVERLEY SIEGEL MD Tissues: A FNA SLIDES NOPATH (FNA RT NECK MASS) Procedures: HE/2, Cyto Int and Re, PAPSTN/9, CBLOCK Patient: Bhavana Beavers [id number] (Continued) Signed (signature on file) Greg Magana MD 10/15/24 0953Normal [facility] HospitalUS Fine Needle Asp/Biopsy, First Lesionon 96-84-7985EH Fine Needle Asp/Biopsy, First Lesion Begin Addendum [...] Ruddy Rosales MD 10/09/24 2:54 pm Technologist: [facility], IncHbA1c (Bld) [Mass fraction]on 10-06-2024 Interpretation and review of laboratory resultsAbnoFormerly [facility] HealthcareLaboratory - Hematology and Cell countson 90-99-1580DxX6h (Bld) [Mass fraction]7.4 %NOMS HealthcareUS SOFT TISSUE HEAD AND NECKon 57-54-1944Opj[place] [address] Ultrasound Report Signed Patient: BHAVANA BEAVERS MR#: [id number] : 1955 Acct:[id number] Age/Sex: 69 / F ADM Date: 10/01/24 Loc: US Attending Dr: Beverley Siegel M.D. Ordering Physician: Beverley Siegel M.D. Date of Service: 10/01/24 Procedure(s): US soft tissue head and neck Accession Number(s): [id number] cc: Rossana Alicia MINK SLICER; Beverley Siegel M.D. [address] [address] Patient Name: BHAVANA BEAVERS MRN: [id number] date: 1955 Sex: F Assigned Patient Location: US Current Patient Location: US Accession/Order Number: [id number] Exam Date: 10/01/2024 15:01 Report Date: 10/01/2024 [...] Luis M.D. 10/01/2024 3:06 PM Dictation Location: [place] [address] Electronically authenticated by: [id number] Y Date: 10/01/2024 15:06 Dictated By: Ceasar Luis D.O. Signed By: 10/01/24 1509 DD/ 1506 TD/TT: Print Shop Stenographer:TBHRadiology, Radiologist, - 10/01/2024 [place] [address] Ultrasound Report Signed Patient: BHAVANA BEAVERS MR#: [id number] : 1955 Acct:[id number] Age/Sex: 69 / F ADM Date: 10/01/24 Loc: US Attending Dr: Beverley Siegel M.D. Ordering Physician: Beverley Siegel M.D. Date of Service: 10/01/24 Procedure(s): US soft tissue head and neck Accession Number(s): [id number] cc: Rossana Alicia MINK SLICER; Beverley Siegel M.D. The [place] [id number] Patient Name: BHAVANA BEAVERS MRN: [id number] date: 1955 Sex: F Assigned Patient Location: US Current Patient Location: US Accession/Order Number: [id number] Exam Date: 10/01/2024 15:01 Report Date: 10/01/2024 [...] Luis M.D. 10/01/2024 3:06 PM Dictation Location: [place] [address] Electronically authenticated by: [id number] Y Date: 10/01/2024 15:06 Dictated By: Ceasar Luis D.O. Signed By: 10/01/24 1509 DD/ 1506 TD/TT: Print Shop Stenographer: FREDDY HealthcareRadiology Study observation (narrative)[facility] HealthcareUS SOFT TISSUE HEAD AND NECKOrdered By: Radiologist Radiology on 23-25-4343CGAQ [employer] Work Phone: Provider Orderson 66-53-6718Iepzencp Orders [id number]#1.00[facility] TOMOSYNTHESIS SCREENING BIon 32-01-3278[place] [address] Mammography Report Signed Patient: BHAVANA BEAVERS MR#: [id number] : 1955 Acct:[id number] Age/Sex: 69 / F ADM Date: 07/17/24 Loc: MAMMO Attending Dr: Rossana Alicia NP Ordering Physician: Rossana Alicia NP Results: Date of Service: 07/17/24 Follow Up: Procedure(s): MM tomosynthesis screening BI Accession Number(s): [id number] cc: Rossana Alicia NP Patient Name: BHAVANA BEAVERS MR#: [id number] : 1955 Exam Date: 07/17/2024 Ordering Doctor: RON Alicia PUBLIC INFORMATION COORDINATOR RADIOLOGY REPORT PROCEDURE: MM TOMOSYNTHESIS SCREENING BI [...] skin cancer at age 60. LOCATION: [facility] BREAST COMPOSITION: The breasts are almost entirely [...] Signed By: 07/17/24 1631 DD/ 1629 TD/TT: Print Shop Stenographer:TBHRadiology, Radiologist, - 07/17/2024 [place] [address] Mammography Report Signed Patient: BHAVANA BEAVERS MR#: [id number] : 1955 Acct:[id number] Age/Sex: 69 / F ADM Date: 07/17/24 Loc: MAMMO Attending Dr: Rossana Alicia NP Ordering Physician: Rossana Alicia NP Results: Date of Service: 07/17/24 Follow Up: Procedure(s): MM tomosynthesis screening BI Accession Number(s): [id number] cc: Rossana Alicia NP Patient Name: BHAVANA BEAVERS MR#: [id number] : 1955 Exam Date: 07/17/2024 Ordering Doctor: [...] skin cancer at age 60. LOCATION: [facility] BREAST COMPOSITION: The breasts are almost entirely [...] Signed By: 07/17/24 1631 DD/ 1629 TD/TT: Print Shop Stenographer: [facility] HealthcareRadiology Study observation (narrative)[facility] TOMOSYNTHESIS SCREENING BIOrdered By: Radiologist Radiology on 65-81-1124YYZD Healthcare Work Phone: MLR HEMOGLOBIN A1Con 95-88-7664Xvramcy [Mass/Vol]171 mg/dLHawthorn Children's Psychiatric HospitalHbA1c (Bld) [Mass fraction]7.6 %High4.5 - 6.2 %[facility] HealthcareComment on above:ADA RECOMMENDED LIMIT 4.0 - 6.0 ADA THERAPEUTIC TARGET < 7.0 ACTION SUGGESTED > 7.0 Interpretation and review of laboratory resultsAbnormalNODC HealthcareCLINISYNC [facility]'s Psychiatric HospitalXR Foot - left 3 Viewson 77-82-6738Odjcrmt Result: 3 views foot: AP, MO, and LO of the left foot were taken and show no acute fractures or osseous abnormalities, specifically of L 5th digit. The lesser digits are contracted. Incidental finding of accessory ossicle medial to the navicular tuberosity. AP view shows splaying of 3rd and 4th digits and evidence of old, healed 3rd metatarsal distal shaft fracture.[facility] Medical CenterRadiology Study observation (narrative)[facility] MLR HEMOGLOBIN A1Con 57-59-7784Bstcpdv [Mass/Vol]217 mg/dLHawthorn Children's Psychiatric HospitalHbA1c (Bld) [Mass fraction]9.2 %High4.5 - 6.2 %[facility] Psychiatric HospitalComment on above:ADA RECOMMENDED LIMIT 4.0 - 6.0 ADA THERAPEUTIC TARGET < 7.0 ACTION SUGGESTED > 7.0 Interpretation and review of laboratory resultsAbAdventHealth HendersonvilleALL CBC WITH AUTO DIFFon 71-65-8862RZVHPIDVT ABSOLUTE AUTO0.0[facility] Psychiatric HospitalBasophils/100 WBC (Bld)0.5 %0.2 - 2.0 %[facility] Psychiatric HospitalEosinophils/100 WBC (Bld)1.4 %0.9 - 7.0 %[facility] Psychiatric HospitalErythrocyte distribution width (RBC) [Ratio]14.4 %11.0 - 15.0 %[facility] Psychiatric HospitalHematocrit (Bld) [Volume fraction]43.2 %36.0 - 48.0 %[facility] Psychiatric HospitalHemoglobin (Bld) [Mass/Vol]13.4 g/dL12.0 - 16.0 g/dLSt. Louis VA Medical CenterMATURE GRANULOCYTES ABS AUTO0.07HighHawthorn Children's Psychiatric HospitalImmature granulocytes/100 WBC (Bld)1.2 %High0.0 - 0.5 %[facility] Psychiatric HospitalInterpretation and review of laboratory resultsAbCorewell Health Butterworth HospitalLYMPHOCYTES ABSOLUTE AUTO1.8 [facility] Psychiatric HospitalLymphocytes/100 WBC (Bld)31.6 %20.5 - 60.0 %[facility]ox Wal[facility] LawnH (RBC) [Entitic mass]28.0 pg26.7 - 34.0 pgNOCenterpoint Medical CenterHC (RBC) [Mass/Vol] 31.0 g/dL29.9 - 35.2 g/dLNOMS HealthcareMCV (RBC) [Entitic vol]90.4 fL81.0 - 99.0 fLNOMS HealthcareMONOCYTES ABSOLUTE AUTO0.3NOMS HealthcareMonocytes/100 WBC (Bld)5.8 %1.7 - 12.0 %NOMS HealthcareNEUTROPHILS ABSOLUTE AUTO3.4[facility] Healthcare Neutrophils/100 WBC (Bld)59.5 %43.0 - 75.0 %NOMS HealthcarePlatelet mean volume (Bld) [Entitic vol]8.5 fLLow9.5 - 13.5 fLNOMS HealthcareTBH EO #0.1NOMS HealthcareTBH FMQ381NJOI HealthcareTBH RBC4.78NOMS HealthcareTBH WBC5.7NOMS HealthcareCLINISYNCNOMS HealthcareCT SINUS WO CONon 67-52-3691MxlFort [place] [address] CT Scan Report Signed Patient: BHAVANA BEAVERS MR#: [id number] : 1955 Acct:[id number] Age/Sex: 68 / F ADM Date: 10/02/23 Loc: CT Attending Dr: Rossana Alicia MINK SLICER Ordering Physician: Rossana Alicia NP Date of Service: 10/02/23 Procedure(s): CT sinus wo con Accession Number(s): [id number] cc: Rossana Alicia NP [place] [address] Patient Name: BHAVANA BEAVERS MRN: [id number] date: 1955 Sex: F Assigned Patient Location: CT Current Patient Location: CT Accession/Order Number: [id number] Exam Date: 10/02/2023 13:30 Report Date: 10/02/2023 [...] Signed By: 10/02/23 1608 DD/ 1605 TD/TT: Print Shop Stenographer:TBHRadiology, Radiologist, MD - 10/02/[address] [place] [id number] [address] Scan Report Signed Patient: BHAVANA BEAVERS MR#: [id number] : 1955 Acct:[id number] Age/Sex: 68 / F ADM Date: 10/02/23 Loc: CT Attending Dr: Rossana Alicia MINK SLICER Ordering Physician: Rossana Alicia NP Date of Service: 10/02/23 Procedure(s): CT sinus wo con Accession Number(s): [id number] cc: Rossana Alicia NP The [address] [address] Patient Name: BHAVANA BEAVERS MRN: [id number] date: 1955 Sex: F Assigned Patient Location: CT Current Patient Location: CT Accession/Order Number: [id number] Exam Date: 10/02/2023 13:30 Report Date: 10/02/2023 [...] Signed By: 10/02/23 1608 DD/ 1605 TD/TT: Print Shop Stenographer: CHANNING HOMEAra HealthcareRadiology Study observation (narrative)[facility] HealthcareCT SINUS WO CONOrdered By: Radiologist Radiology on 07-67-6662EQRO Healthcare Work Phone: mm TOMOSYNTHESIS SCREENING BIon 13-09-6817DxtFort [place] [address] Mammography Report Signed Patient: BHAVANA BEAVERS MR#: [id number] : 1955 Acct:[id number] Age/Sex: 68 / F ADM Date: 06/29/23 Loc: MAMMO Attending Dr: Rossana Alicia MINK SLICER Ordering Physician: Rossana Alicia NP Results: Date of Service: 06/29/23 Follow Up: Procedure(s): MM tomosynthesis screening BI Accession Number(s): [id number] cc: Rossana Alicia NP Patient Name: BHAVANA BEAVERS MR#: [id number] : 1955 Exam Date: 06/29/2023 Ordering Doctor: [...] skin cancer at age 60. LOCATION: [facility] BREAST COMPOSITION: Scattered areas fibroglandular [...] Signed By: 06/29/23 1433 DD/ 143 TD/TT: Print Shop Stenographer:TBHRadiology, Radiologist, MD - 06/29/2023 [place] [address] Mammography Report Signed Patient: BHAVANA BEAVERS MR#: [id number] : 1955 Acct:[id number] Age/Sex: 68 / F ADM Date: 06/29/23 Loc: MAMMO Attending Dr: Rossana Alicia NP Ordering Physician: Rossana Alicia NP Results: Date of Service: 06/29/23 Follow Up: Procedure(s): MM tomosynthesis screening BI Accession Number(s): [id number] cc: Rossana Alicia NP Patient Name: BHAVANA BEAVERS MR#: [id number] : 1955 Exam Date: 06/29/2023 Ordering Doctor: RON Alicia PUBLIC INFORMATION COORDINATOR RADIOLOGY REPORT PROCEDURE: MM TOMOSYNTHESIS SCREENING BI [...] skin cancer at age 60. LOCATION: [facility] BREAST COMPOSITION: Scattered areas fibroglandular [...] Signed By: 06/29/23 1433 DD/ 31 TD/TT: Print Shop Stenographer: FREDDY [facility] Va Medical CenterRadiology Study observation (narrative)[facility] TOMOSYNTHESIS SCREENING BIOrdered By: Radiologist Radiology on 77-86-7833HRASHawthorn Children's Psychiatric Hospital Work Phone: MLR HEMOGLOBIN A1Con 74-45-7182Zrratkj [Mass/Vol]232 mg/dLHawthorn Children's Psychiatric HospitalHbA1c (Bld) [Mass fraction]9.7 %High4.5 - 6.2 %[facility]OMS HealthcareComment on above:ADA RECOMMENDED LIMIT 4.0 - 6.0 ADA THERAPEUTIC TARGET < 7.0 ACTION SUGGESTED > 7.0 Interpretation and review of laboratory resultsAbnormalNOMS HealthcareCLINISYNC NOMS HealthcareMG MAMM SCREEN 3D JOSE CADon 56-29-9394TZ MAMM SCREEN 3D JOSE CAD Patient: BHAVANA BEAVERS Exam Date: 06/07/2022 : 1955 Gender:F Ordering : RON ALICIA CNP Admission #: [id number] Family : Order #: [id number] CLICK HERE TO VIEW EXAM RADIOLOGY REPORT [...] skin cancer at age 60. LOCATION: [facility] BREAST COMPOSITION: Scattered areas fibroglandular [...] by: Ruddy Rosales MD on 06/07/2022 at 13:35[facility] Ambulatory Visit Summaryon 79-97-0076Omissxejal Visit Summary BHAVANA BEAVERS :1955 Visit Date:05/31/2022 [...] adenoma of colon Tubular adenoma of colon [facility] Surgery Office/Clinic Noteon 39-30-9408Xzgtyjr Surgery Office/Clinic NoteChief Complaint post operative follow [...] Sister. Immunizations Vaccine Date Status Comments SARSCoV2 mRNA(erflbqltd-rjdt-dfvhhc) vac 08/18/2021 Recorded SARS-CoV-2 (COVID-19) mRNA BNT-162b2 vax 01/10/2021 Recorded influenza virus vaccine, inactivated 12/14/2020 Recorded SARS-CoV-2 (COVID-19) mRNA BNT-162b2 vax 06/18/2020 Recorded SARS-CoV-2 (COVID-19) mRNA BNT-162b2 vax 05/29/2020 Recorded 2022-04-18: TPV65 influenza virus vaccine, live, trivalent 12/30/2018 RecordedDoctors HospitalComment on above:Result Comment: Electronically Signed By: FRANKLIN CORTEZ, Julian Smith\Date and Time Signed: 05/31/22 14:36 ESTRemtejasson 05-31-2022 Reminders From: Billie Curtis LPN To: N - Clinical; Sent: 05/31/2022 16:01:22 EST Show up: 04/16/2027 07:00:00 EST Subject: colonoscopy recall Due Date/Time: 05/17/2027 07:00:00 EST Reminder/Recall Patient is due for colonoscopy 05/17/27 due to history of colonic polyps.Normal [facility] BaltimorePathology Noteon 92-02-8019Jpmgagioa Note [id number]#1.00CD:127NoMansfield HospitalOutside Colonoscopyon 87-39-8304Oewyfnq Colonoscopy [id number]#1.00CD:127Doctors HospitalPOINT OF CARE GLUCOSEon 21-24-9877Zuyjrkl [Mass/Vol]176 mg/dLCritically egci55-870CpyOhio Valley HospitalComment on above:Performed By: #### POCGLUC ####[facility] [address] [place], [place] [address]ZyMavis EstrellaPre-Certification Formon 62-71-9789Yck-Certification Form [id number]#1.00CD:[address] [place], [place] [address]Facesheeton 55-56-4659Ermgguthj [id number]#1.00CD:[address] [place], [place] [address]Consent for Procedure/Surgeryon 67-41-3083Wjizfgx for Procedure/Surgery [id number]#1.00CD:[address] [place], [place] [address]Physician Referralon 62-94-7861Uzbydjctu Referral [id number]#1.00CD:[address] [place], [place] [address]Physician Referralon 95-37-3681Ougdzzcrz Referral [id number]#1.00CD:[address] [place], [place] [address]MICROALBUMIN URINEon 97-29-6729Toccrsv, Urine<3.0NormalNot Estab.The [facility] CenterComment on above:Result Comment: Verified by repeat analysisPerformed By: #### MALBLC #### [facility] [address] [place] [address] Dr. Aga Bowser AUTO DIFFon 50-44-5665KYUO #0.0 103/ulNormal0.0-0.1The [facility] Medical CenterComment on above:Performed By: #### CBC #### [facility] [address] [place] [address] Dr. Aga Torresphils/100 WBC (Bld)0.4 %Normal0.2-2.0The [facility] Comment on above:Performed By: #### CBC #### [facility] [address] [place] [address] Dr. Aga Granados #0.1 103/ulNormal0.0-0.7The [facility] Medical CenterComment on above: Performed By: #### CBC #### [facility] [address] [place] [address] [address] Aga Boyceosinophils/100 WBC (Bld)1.6 %Normal0.9-7.0The [facility] Comment on above:Performed By: #### CBC #### [facility] [address] [place] [address] Dr. Aga Boycerythrocyte distribution width (RBC) [Ratio]14.2 %Rfkrli35.0-15.0 The [facility] CenterComment on above:Performed By: #### CBC #### [facility] [address] [place] [address] Dr. Aga EstrellaHematocrit (Bld) [Volume fraction]42.1 %Wlcapf07.0-48.0The [facility] CenterComment on above:Performed By: #### CBC #### [facility] [address] [place] [address] Dr. Aga EstrellaHemoglobin (Bld) [Mass/Vol]13.1 g/gTNragmx26.0-16.0The [facility] CenterComment on above:Performed By: #### CBC #### [facility] [address] [place] [address] Dr. Aga Alva #0.02 10e3/ulNormal0.00-0.03The [facility] CenterComment on above:Performed By: #### CBC #### [facility] [address] [place] [address] Dr. Aga EstrellaIG %0.4 %Normal0.0-0.5The [facility] CenterComment on above: Performed By: #### CBC #### [facility] [address] [place] [address] Dr. Aga De Los SantosMPH #1.7 103/ulNormal1.2-3.8The [facility] CenterComment on above:Performed By: #### CBC #### [facility] [address] [place] [address] Dr. Aga De Los Santosmphocytes/100 WBC (Bld)29.4 %Ymlcgc05.5-60.0The [facility] CenterComment on above:Performed By: #### CBC #### [facility] [address] [place] [address] Dr. Aga Murray DIFF REQNONormalThe [facility] CenterComment on above: Performed By: #### CBC #### [facility] [address] [place] [address] Dr. Aga Hager (RBC) [Entitic mass]28.8 foMrqmrs48.7-34.0The [facility] CenterComment on above:Performed By: #### CBC #### [facility] [address] [place] [address] Dr. Aga Hager (RBC) [Mass/Vol]31.1 g/wEEwrklr91.9-35.2The [facility] CenterComment on above:Performed By: #### CBC #### [facility] [address] [place] [address] Dr. Aga Hager (RBC) [Entitic vol]92.5 kUJhhkvo73.0-99.0The [facility] CenterComment on above:Performed By: #### CBC #### [facility] [address] [place] [address] Dr. Aga Sandoval #0.4 103/ulNormal0.3-0.8The [facility] CenterComment on above:Performed By: #### CBC #### [facility] [address] [place] [address] Dr. Aga Ogdenocytes/100 WBC (Bld)6.4 %Normal1.7-12.0The [facility] Comment on above:Performed By: #### CBC #### [facility] [address] [place] [address] Dr. Aga August #3.5 103/ulNormal1.4-6.5The [facility] CenterComment on above:Performed By: #### CBC #### [facility] [address] [place] [address] Dr. Aga Chavirautrophils/100 WBC (Bld)61.8 %Cfuyij04.0-75.0The [facility] CenterComment on above:Performed By: #### CBC #### [facility] [address] [address] [address] Aga EstrellaPlatelet mean volume (Bld) [Entitic vol]10.2 fLNormal9.5-13.5The [facility] CenterComment on above:Performed By: #### CBC #### [facility] [address] [place] [address] Dr. Aga EstrellaPLT195 103/vkCzypuj167-315Fdc [facility] CenterComment on above: Performed By: #### CBC #### [facility] [address] [place] [address] Dr. Aga EstrellaRBC4.55 106/ulNormal4.20-5.40The [facility] CenterComment on above:Performed By: #### CBC #### [facility] [address] [place] [address] Dr. Aga EstrellaWBC5.7 103/ulNormal4.0-11.0The [facility] CenterComment on above: Performed By: #### CBC #### [facility] [address] [place] [address] Dr. Aga EstrellaGLYCOHEMOGLOBIN A1Con 65-20-4916VCM RECOMMENDATIONSEE BELOWNormal The [facility] CenterComsur[facility] on above:Result Comment: ADA RECOMMENDED LIMIT 4.0 - 6.0 ADA THERAPEUTIC TARGET < 7.0 ACTION SUGGESTED > 7.0Performed By: #### A1C #### [facility] [address] [place] [address] Dr. Aga EstrellaGlucose [Mass/Vol]192 mg/dLNormalThe [facility] CenterComsurgeons [facility] on above:Performed By: #### A1C #### [facility] [address] [place] [address] Dr. Aga EstrellaHbA1c (Bld) [Mass fraction]8.3 %Critically high4.5-6.2The [facility] on above:Performed By: #### A1C #### [facility] [address] [place] [address] Dr. Aga EstrellaLIPID PROFILEon [id number]-HDL RATIO NORMSBlanchard Valley Health SystemComment on above:Result Comment: 3.3 - 4.4 LOW RISK 4.4 - 7.1 AVERAGE RISK 7.1 - 11.0 MODERATE RISK >11.0 HIGH RISKPerformed By: #### LIPID, CMP #### [facility] [address] [address] [address] Aga EstrellaCholesterol [Mass/Vol]123 mg/dLNormal<=200[facility] Comment on above:Performed By: #### LIPID, CMP #### [facility] [address] [address] [address] Aga EstrellaCholesterol in HDL [Mass/Vol]51 mg/dONfueci78-30RuyOhio Valley HospitalComment on above:Performed By: #### LIPID, CMP #### [facility] [address] [place] [address] Dr. Aga EstrellaCholesterol in LDL [Mass/Vol]45.8 mg/dLDunlap Memorial HospitalComment on above:Performed By: #### LIPID, CMP #### [facility] [address] [place] [address] Dr. Aga Reavesestermono.total/Cholesterol in HDL [Mass ratio]2.4 {ratio} NormalOhio Valley HospitalComment on above:Performed By: #### LIPID, CMP #### [facility] [address] [place] [address] Dr. Aga Bellamy NORMAL> or = 60 mg/dl - LOW CARDIOVASCULAR RISK <40 mg/dl - HIGH CARDIOVASCULAR RISKDunlap Memorial HospitalComment on above:Performed By: #### LIPID, CMP #### [facility] [address] [place] [address] Dr. Aga EstrellaLDL CALC NORMALSEE [facility] CampusComment on above:Result Comment: <100 mg/dl OPTIMAL 100 - 129 mg/dl NEAR OR ABOVE OPTIMAL 130 - 159 mg/dl BORDERLINE HIGH 160 - 189 mg/dl HIGH >190 mg/dl VERY HIGH Performed By: #### LIPID, CMP #### [facility] [address] [address] [address] Aga EstrellaTriglyceride [Mass/Vol]131 mg/dLNormal<=150The [facility] Comment on above:Performed By: #### LIPID, CMP #### [facility] [address] [address] [address] Aga EstrellaVLDL CALC26.2 mg/dLNormalThe [facility] CenterComment on above: Performed By: #### LIPID, CMP #### [facility] [address] [address] [address] Aga EstrellaPROF 14(COMP METB)on [id number] [Mass/Vol]3.5 g/dLNormal 3.4-5.0The [facility] CenterComment on above:Performed By: #### LIPID, CMP #### [facility] [address] [place] [address] Dr. Aga EstrellaAlbumin/Globulin [Mass ratio]1.0 {ratio}NormalThe [facility] CenterComment on above:Performed By: #### LIPID, CMP #### [facility] [address] [address] [address] Aga Blake [Catalytic activity/Vol]147 U/LCritically ufyt99-751Yrv [facility] CenterComment on above:Performed By: #### LIPID, CMP #### [facility] [address] [place] [address] Dr. Aga Molina [Catalytic activity/Vol]42 U/UAlrsnh89-00Ebw [facility] CenterComment on above:Performed By: #### LIPID, CMP #### [facility] [address] [address] [address] Aga Garza gap [Moles/Vol]12.2 mmol/LNormalThe [facility] Comment on above:Performed By: #### LIPID, CMP #### [facility] [address] [place] [address] Dr. Aga Liao [Catalytic activity/Vol]32 U/GJskrux99-91Lbs [facility] CenterComment on above:Performed By: #### LIPID, CMP #### [facility] [address] [address] [address] Aga EstrellaBilirubin [Mass/Vol]0.3 mg/dLNormal0.2-1.0The [facility] Comment on above:Performed By: #### LIPID, CMP #### [facility] [address] [address] [address] Aga EstrellaCalcium [Mass/Vol]9.1 mg/dLNormal8.5-10.1The [facility] Comment on above:Performed By: #### LIPID, CMP #### [facility] [address] [address] [address] Aga EstrellaChloride [Moles/Vol]103 mmol/PYygiym34-066Rny [facility] Comment on above:Performed By: #### LIPID, CMP #### [facility] [address] [place] [address] Dr. Aga EstrellaCO2 [Moles/Vol]29.9 mmol/OZmgxpb53.0-32.0The [facility] Comment on above:Performed By: #### LIPID, CMP #### [facility] [address] [address] [address] Aga EstrellaCreatinine [Mass/Vol]0.65 mg/dLNormal0.55-1.02The [facility] CenterComment on above:Performed By: #### LIPID, CMP #### [facility] [address] [address] [address] Aga BoyceGFR-AF SUDANESE>60Normal>=60The [facility] CenterComment on above:Performed By: #### LIPID, CMP #### [facility] [address] [address] [address] Aga BoyceGFR-NON AF SUDANESE>60Normal>=60The [facility] CenterComment on above:Performed By: #### LIPID, CMP #### [facility] [address] [address] [address] Aga EstrellaGlobulin (S) [Mass/Vol]3.6 g/dLNormalThe [facility] CenterComment on above:Performed By: #### LIPID, CMP #### [facility] [address] [address] [address] Aga EstrellaGlucose [Mass/Vol]156 mg/dLCritically brnm02-481Fma [facility] CenterComment on above:Performed By: #### LIPID, CMP #### [facility] [address] [address] [address] Aga EstrellaPotassium [Moles/Vol]4.1 mmol/LNormal3.5-5.1The [facility] Comment on above:Performed By: #### LIPID, CMP #### [facility] [address] [address] [address] Aga EstrellaProtein [Mass/Vol]7.1 g/dLNormal6.4-8.2The [facility] Comment on above:Performed By: #### LIPID, CMP #### [facility] [address] [address] [address] Aga EstrellaSodium [Moles/Vol]141 mmol/UVeiydm832-873Xmm [facility] Comment on above:Performed By: #### LIPID, CMP #### [facility] [address] [address] [address] Aga EstrellaUrea nitrogen [Mass/Vol]13.0 mg/dLNormal7.0-18.0The [facility] CenterComment on above:Performed By: #### LIPID, CMP #### [facility] [address] [address] [address] Aga Melendrez nitrogen/Creatinine [Mass ratio]20.0 mg/mgNormalThe [facility] CenterComment on above:Performed By: #### LIPID, CMP #### [facility] [address] [address] [address] Aga Flores RANDOM W/MICROSCOPICon [id number] SEENNormalNONE SEENOhio Valley HospitalComment on above:Performed By: #### UAMIC ####[facility] [address] [address]Dr. Aga Estrella Bilirubin Ql (U)NegativeNormalNEGATIVEThe [facility] CenterComment on above: Performed By: #### UAMIC ####[facility] [address] [place], [place] [address]Dr. Yilan ChangCASTNONE SEENNormalNONE SEENOhio Valley HospitalComment on above:Performed By: #### UAMIC ####[facility] [address] [place], [place] [address]Dr. Yilan ChangClarity (U) CLEARNormalCLEAROhio Valley HospitalComment on above:Performed By: #### UAMIC ####[facility] [address] [place], [place] [address]Dr. Yilan ChangColor (U)LT. YELLOWNormalYELLOWOhio Valley HospitalComment on above: Performed By: #### UAMIC ####[facility] [address] [place], [place] [address]Dr. Yilan ChangCrystals LM Nom (Urine sed)NONE SEEN NormalNONE SEENOhio Valley HospitalComment on above:Performed By: #### UAMIC ####[facility] U[address] [place], [place] [address]Dr. Yilan ChangEpithelial cells LM Ql (Urine sed)RARENormalNONE SEEN /RAREThe [facility] CenterComment on above:Performed By: #### UAMIC ####[facility] [address] [place], [place] [address]Dr. Yilan ChangGlucose Ql (U) NegativeNormalNEGATIVEOhio Valley HospitalComment on above:Performed By: #### UAMIC ####[facility] [address] [place], [place] [address]Dr. Yilan ChangHemoglobin Ql (U)NegativeNormalNEGATIVEOhio Valley Hospital Comment on above:Performed By: #### UAMIC ####[facility] Z[address] [place], [place] [address]Dr. Yilan ChangKetones Ql (U)NegativeNormal NEGATIVEOhio Valley HospitalComment on above:Performed By: #### UAMIC ####[facility] [address]cl[address] [place], [place] [address]Dr. Yilan ChangLEUKOCYTESNegativeNormalNEGATIVEThe [facility] HospitalComment on above:Performed By: #### UAMIC ####[facility] [address] [place], [place] [address]Dr. Yilan ChangMUCOUSNONE SEENNormalNONE SEENOhio Valley HospitalComment on above:Performed By: #### UAMIC ####[facility] [address] [place], [place] [address]Dr. Juhilan ChangNitrite Ql (U) NegativeNormalNEGATIVEThe [facility] HospitalComment on above:Performed By: #### UAMIC ####[facility] [address] [place], [place] [address]Dr. Aga ChangpH (U)6.0 [pH]Normal5-9The [facility] CenterComment on above:Performed By: #### UAMIC ####[facility] [address] [place], [place] [address]Dr. Aga ChangRBCNONE SEENAbnormal0-2The [facility] CenterComment on above:Performed By: #### UAMIC ####[facility] [address] [place], [place] [address]Dr. Yilan ChangSPEC GRAVITY 1.495Nxvrda8.005-<=1.025The [facility] CenterComment on above:Performed By: #### UAMIC ####[facility] [address] [place], [place] [address]Dr. Yichristian ChangUA PROTEINNegativeNormalNEGATIVE/ TRACEThe [facility] Comment on above:Performed By: #### UAMIC ####[facility] [address] [place], [place] [address]Dr. Yilan ChangUrobilinogen Qn (U)0.2 {Kiya'U}/dLNormal0.2 - 1.0The [facility] CenterComment on above:Performed By: #### UAMIC ####[facility] [address] [place], [place] [address]Dr. Yilan ChangWBC0-2AbnormalNONE SEENThe [facility] CenterComment on above:Performed By: #### UAMIC ####[facility] [address] [address]Dr. Aga EstrellaCovid-19 PCR (CVDTBH)on 09-01-2021 SARS-CoV-2 (COVID-19) RNA JOSE+probe Ql (Unsp spec)Not detectedNormalNOT DETECTED The [facility] CenterComsur[facility] on above:Result Comment: This test is not yet approved or cleared by the [place] FDA. When there are no FDA-approved or cleared tests available, and other criteria are met, FDA can make tests available under an emergency access mechanism called an Emergency Use Authorization (EUA). The EUA for this test is supported by the [place] of Health and Human Service's (HHS's) declaration [...] consistent with SARS-CoV-2.Performed By: #### CVDTBH #### [facility] [address] [address] [address] Aga EstrellaGLYCOHEMOGLOBIN A1Con [id number] RECOMMENDATIONADA THERAPEUTIC TARGET 6.0 - 7.0 ACTION SUGGESTED > 7.0NoMemorial Health System Marietta Memorial HospitalComment on above:Performed By: #### A1C #### [facility] [address] [address] [address] Aga EstrellaGlucose [Mass/Vol]183 mg/dLNoMemorial Health System Marietta Memorial HospitalComsurgeons choice medical center on above:Performed By: #### A1C #### [facility] [address] [address] [address] Aga EstrellaHbA1c (Bld) [Mass fraction]8.0 %Critically high<=6.0[facility] on above:Performed By: #### A1C #### [facility] [address] [address] [address] Aga EstrellaPROF CHEM 8 (BAS METB)on 33-50-8914Btxwx gap [Moles/Vol]9.0 mmol/LNormalThe [facility] CenterComment on above:Performed By: #### BMP #### [facility] [address] [address] [address] Aga EstrellaCalcium [Mass/Vol]8.6 mg/dLNormal8.5-10.1The [facility] Comment on above:Performed By: #### BMP #### [facility] [address] [address] [address] Aga EstrellaChloride [Moles/Vol]102 mmol/SDlnttk14-289Zmn [facility] Comment on above:Performed By: #### BMP #### [facility] [address] [place] [address] Dr. Aga EstrellaCO2 [Moles/Vol]32.7 mmol/LCritically high22.0-30.0The [facility] CenterComment on above:Performed By: #### BMP #### [facility] [address] [address] [address] Aga EstrellaCreatinine [Mass/Vol]0.61 mg/dLNormal0.52-1.04The [facility] CenterComment on above:Performed By: #### BMP #### [facility] [address] [address] [address] Aga BoyceGFR-AF SUDANESE>60Normal>=60The [facility] CenterComment on above:Performed By: #### BMP #### [facility] [address] [address] [address] Aga BoyceGFR-NON AF SUDANESE>60Normal>=60The [facility] CenterComment on above:Performed By: #### BMP #### [facility] [address] [address] [address] Aga EstrellaGlucose [Mass/Vol]187 mg/dLCritically augb59-492Ixt [facility] CenterComment on above:Performed By: #### BMP #### [facility] [address] [address] [address] Aga EstrellaPotassium [Moles/Vol]3.7 mmol/LNormal3.4-5.0The [facility] Comment on above:Performed By: #### BMP #### [facility] [address] [address] [address] Aga EstrellaSodium [Moles/Vol]140 mmol/PNpqhpg158-569Nof [facility] Comment on above:Performed By: #### BMP #### [facility] [address] [address] [address] Aga EstrellaUrea nitrogen [Mass/Vol]13.0 mg/dLNormal7.0-18.0The [facility] CenterComment on above:Performed By: #### BMP #### [facility] [address] [address] [address] Aga Melendrez nitrogen/Creatinine [Mass ratio]21.3 mg/mgNormalThe [facility] CenterComment on above:Performed By: #### BMP #### [facility] [address] [address] [address] Aga Estrella Vital Signs Date TimeVital SignValuePerforming IwqciozsaQisaolxn87-00-2767 09:53-0400Body avmexj255.4 Janiaisa Aichholz [employer] Work Phone: [phone]10-14-2025 09:53-0400 Body mass index (BMI) [Ratio]38.3 kg/m2Lisa Aichholz [employer] Work Phone: [phone]10-14-2025 09:53-0400 Body mjzdtydmqbk39.3 [degF]Rossana Aichholz [employer] Work Phone: [phone]10-14-2025 09:53-0400 Body .13 kgLisa Aichholz [employer] Work Phone: [phone]10-14-2025 09:53-0400 Diastolic blood seqdubxt10 mm[Hg]Rossana Aichholz [employer] Work Phone: [facility]10-14-2025 09:53-0400 Heart rate72 /minRossana Macarioholz [employer] Work Phone: [facility]10-14-2025 09:53-0400 Respiratory rate18 /minRossana Macarioholz [employer] Work Phone: [facility]10-14-2025 09:53-0400 SaO2% (BldA) [Mass fraction]92 %Rossana Taylorz [employer] Work Phone: [facility]10-14-2025 09:53-0400 Systolic blood irhqrhdp479 mm[Hg]Rossana Taylorleonides [employer] Work Phone: [facility]08-06-2025 11:06-0400 Body .5 cmBeverley Siegel MD Work Phone: [facility] HospitalBtczehnqwi23-75-1659 11:06-0400Body mass index (BMI) [Ratio]36.4 kg/j6QyvpqyBeverley Siegel MD Work Phone: [facility] HospitalAbqjvntdof53-74-3369 11:06-0400Body dmixjz87.27 kgBeverley Siegel MD Work Phone: [facility] HospitalAsmviidxby59-55-1848 11:06-0400Diastolic blood nlcjblid04 mm[Hg]Beverlye Siegel MD Work Phone: [facility] HospitalVdkchijmmb24-51-4956 11:06-0400Heart rate75 /min Beverley Siegel MD Work Phone: [facility] HospitalFskehflwco19-42-1988 11:06-0400Systolic blood mm[Hg]Beverley Siegel MD Work Phone: [facility] HospitalJvbvymbngg14-48-0979 09:45-0400Body mass index (BMI) [Ratio]36.54 kg/m2Rossana Alicia [employer] Work Phone: [facility] HospitalIraclhvbwc76-19-5665 09:45-0400Body temperature 97.11 [degF]Rossana Macarioalfonzo [employer] Work Phone: [facility] HospitalMfqgbsysiq35-59-5701 09:45-0400Body jbdoyq78.63 kgRossana Alicia [employer] Work Phone: [facility] HospitalKhaznhtrdp41-40-4550 09:45-0400Diastolic blood mnuxzmzo57 mm[Hg]Rossana Macarioalfonzo [employer] Work Phone: [facility] HospitalSwpjwvxgej08-60-8912 09:45-0400Heart rate75 /min Rossana Macarioalfonzo [employer] Work Phone: [facility] HospitalRnsslllqfv77-78-5608 09:45-0400Respiratory rate18 /minRossana Taylorleonides [employer] Work Phone: [facility] HospitalEflekhmdkh34-23-2608 09:45-8215KdF0% (BldA) [Mass fraction]95 %Rossana Macarioalfonzo [employer] Work Phone: [facility] HospitalTvocsdlvea91-17-7706 09:45-0400Systolic blood zavlkxab121 mm[Hg]Rossana Macarioalfonzo [employer] Work Phone: [facility] HospitalJgjpemkqrn91-72-8874 14:36-0400Body syxnkk608.5 cmBeverley Siegel MD Work Phone: [facility] HospitalGkzmwsourb30-69-5436 14:36-0400Body mass index (BMI) [Ratio]37.13 kg/z3JpwpeeBeverley Siegel MD Work Phone: [facility] HospitalLuqcvfalmc09-99-0462 14:36-0400Body gtiank95.08 kgBeverley Siegel MD Work Phone: [facility] HospitalQvsybnzvjo12-40-8176 14:36-0400Diastolic blood yihqjgeq90 mm[Hg]Beverley Siegel MD Work Phone: [facility] HospitalPqzznzndog26-19-6992 14:36-0400Heart rate76 /min Beverley Siegel MD Work Phone: [facility] HospitalOdbbbrpiia75-39-5321 14:36-0400Systolic blood mm[Hg]Beverley Siegel MD Work Phone: [facility] HospitalLpfnnpsrqt01-65-3264 13:05-0400Body mass index (BMI) [Ratio]37.28 kg/m2Lisa Donovanhholz [employer] Work Phone: [facility] HospitalCdxbkotfwn39-64-2249 13:05-0400Body temperature 98.29 [degF]Rossana Maral [employer] Work Phone: [facility] HospitalTxbvmeomuc58-34-8122 13:05-0400Body cuhuwa04.44 kgLisa Donovanhholz [employer] Work Phone: [facility] HospitalOujxnxewsw10-75-9612 13:05-0400Diastolic blood vdkcdycs30 mm[Hg]Rossana Donovanhholz [employer] Work Phone: [facility] HospitalEbqiqxyzcg36-83-3816 13:05-0400Heart rate75 /min Rossana Renaldoholz [employer] Work Phone: [facility] HospitalVdrbaojvpz14-75-8833 13:05-0400Respiratory rate18 /minLisa Donovanhholz [employer] Work Phone: [facility] HospitalNmlaqggeso72-51-3393 13:05-2509McC1% (BldA) [Mass fraction]93 %Rossana Brandonz [employer] Work Phone: [facility] HospitalDsvbgilron61-55-1101 13:05-0400Systolic blood mcxnngeg510 mm[Hg]Rossana Donovanhholz [employer] Work Phone: [facility] HospitalWgmsuqvrap56-80-5161 09:47-0400Body dlzgno996.5 Janiaisa Brandonz [employer] Work Phone: [facility] HospitalKouxalfbew68-75-1283 09:47-0400Body mass index (BMI) [Ratio]37.2 kg/m2Lisa Donovanhholz MINK SLICER Work Phone: [facility] HospitalKrbrxcwkhm69-08-2255 09:47-0400Body temperature 98.4 [degF]Rossana Alicia MINK SLICER Work Phone: [facility] HospitalVxbpcfagtp52-24-6664 09:47-0400Body zhbixw21.26 kgRossana Alicia MINK SLICER Work Phone: [facility] HospitalKrvpnnveyy15-53-5669 09:47-0400Diastolic blood xkszwuzs22 mm[Hg]Rossana Alicia MINK SLICER Work Phone: [facility] HospitalBxiagwoqbi88-43-3487 09:47-0400Heart rate74 /min Rossana Brandonz MINK SLICER Work Phone: [facility] HospitalUnladxbzvd67-27-8070 09:47-0400Respiratory rate18 /minLisa Alicia MINK SLICER Work Phone: [facility] HospitalHxctcskads95-74-3139 09:47-7685RpY4% (BldA) [Mass fraction]95 %Rossana Alicia MINK SLICER Work Phone: [facility] HospitalPaqkglpehy78-41-2321 09:47-0400Systolic blood yolytkfi796 mm[Hg]Rossana Alicia MINK SLICER Work Phone: [facility] HospitalWnrbnvvrpv32-33-2093 14:56-0500Body ufnlqy438.5 cmNabila Walkere DPM Work Phone: [facility] HospitalKpaliisyao65-69-9633 14:56-0500Body mass index (BMI) [Ratio]36.4 kg/u8NorrckqNabila Walkere DPM Work Phone: [phone] HospitalKcdhbpucgo91-81-5049 14:56-0500Body .27 kgaNbila Walkere DPM Work Phone: [facility] HospitalWxodfpxnsu21-89-8561 09:50-0500Body .5 Janiasameera Macarioalfonzo MINK SLICER Work Phone: [facility] HospitalItpnuhzero45-45-4222 09:50-0500Body mass index (BMI) [Ratio]38.56 kg/m2Annsa Renaldorodgerz MINK SLICER Work Phone: 1(419)547-[address] [place], [place] [address]Rzwqpjqlzy75-78-3965 09:50-0500Body temperature 98.1 [degF]Rossana Renaldoholz MINK SLICER Work Phone: [facility] HospitalFdhikhnqod17-14-9147 09:50-0500Body djjeiy06.62 kgLisa Donovanhholz MINK SLICER Work Phone: [facility] HospitalVegqzmeiya38-94-7860 09:50-0500Diastolic blood qkhpoivt13 mm[Hg]Rossana Renaldoholz MINK SLICER Work Phone: 1([phone] [place], [place] [address]Uwrjppvthd62-10-8029 09:50-0500Heart rate78 /min Rossana Donovanhholz MINK SLICER Work Phone: [phone] [place] [address]-12-2024 09:50-0500Respiratory rate18 /minLisa Renaldoholz MINK SLICER Work Phone: 1(327)5-[address] [place], [place] [address]Tfpacpbvkq58-56-1119 09:50-3742UyN0% (BldA) [Mass fraction]94 %Rossana Renaldoholz MINK SLICER Work Phone: 1(740)1-[address] [place] [address]-12-2024 09:50-0500Systolic blood mm[Hg]Rossana Renaldoholz MINK SLICER Work Phone: [phone])183-[address] [place] [address]-11-2024 14:07-0400Body mass index (BMI) [Ratio]38.74 kg/m2Lisa Renaldoholz MINK SLICER Work Phone: [facility] HospitalNqfjltgwvk13-02-9958 14:07-0400Body temperature 97.5 [degF]Rossana Renaldoholz MINK SLICER Work Phone: [phone] [place], [place] [address]Gfxffjutjz88-06-7918 14:07-0400Body uoewsu51.07 kgLisa Donovanhholz MINK SLICER Work Phone: [phone])512-[address] [place] [address]-11-2024 14:07-0400Diastolic blood ruqmmrbn97 mm[Hg]Rossana Donovanhholz MINK SLICER Work Phone: [phone]-[facility] [address]Ifpjrkutle71-22-7922 14:07-0400Heart rate70 /min Rossana Donovanhholz MINK SLICER Work Phone: [facility] HospitalUszkhfzovh40-53-8565 14:07-0400Respiratory rate20 /minRossana Maral MINK SLICER Work Phone: NOSaint [facility] HospitalEqqbzlkyih01-56-8410 14:07-8718LcP2% (BldA) [Mass fraction]94 %Rossana Maral MINK SLICER Work Phone: [facility]OSaint [facility] HospitalBvltihsbhs95-69-0423 14:07-0400Systolic blood mm[Hg]Rossana Maral MINK SLICER Work Phone: [facility] HospitalDntswlmlsr97-99-2135 14:43-0500Blood Pressure LocationMichael NILL General Surgery Mzmzkcnl49-28-6267 14:43-0500Diastolic blood jnuejnbz29 mm[Hg]Julian NILL General Surgery Zxiraqkb07-39-0934 14:43-0500Heart rate 80 /minMichael NILL [facility] Dkithljb43-38-0365 14:43-0500 Respiratory rate16 /minMichael NILL General Surgery Shzulmha46-11-2258 14:43-0500Systolic blood jnopkdtd452 mm[Hg]Julian NILL General Surgery [place] Encounters Encounter DateEncounter TypeCare ProviderFacilityStart: 01-06-2025 End: 53-86-3390dfxkhiiongUqdx J Aichholz MINK SLICER-C Work Phone: [facility] Work Phone: Start: 01-06-2025 End: 11-36-9345Dlcwtgh encounter procedureRossana Alicia MINK SLICER-C-[facility] [place] Work Phone: Start: 00-47-9015Xfhizrb encounter procedureRossana Alicia MINK SLICER-C Work Phone: [phone]: 10-29-2024 End: 48-53-7037Exonnojordana Siegel MD Work Phone: noms [place] OtolaryngologyStart: 10-29-2024 End: 95-54-8065Jmueim Ayala Siegel MD Work Phone: noms [place] OtolaryngologyStart: 10-29-2024 End: 58-78-5852Ytjuml outpatient visit 15 minutesBeverley Siegel MD Work Phone: noms [place] OtolaryngologyComment on above:Neck mass (Primary Dx)Start: 10-29-2024 End: 98-12-0605tvcaenltuyYOYYBI H TIMMISNot AvailableStart: 10-09-2024 End: 48-84-3280Innvgxmm ReferredBEVERLEY SIEGEL MD-LAB [facility] Start: 10-09-2024 End: 35-81-1495zlfqhpancnMtwvgd H Timmis [facility] Work Phone: Start: 10-06-2024 End: 53-47-6835Lflvvs flowsheetRossana Alicia MINK SLICER Work Phone: noms CW FMStart: 10-06-2024 End: 61-99-2780Ysahhx flowsheetLisa Manhholz MINK SLICER Work Phone: noms CWM FMStart: 10-06-2024 End: 48-07-0407Ezqfuu outpatient visit 25 minutesLisa Donovanhholz MINK SLICER Work Phone: noms CW FMComment on above:Type 2 diabetes mellitus without complication, without long-term current use of insulin (HCC) (Primary Dx); Obstructive sleep apnea syndrome; Essential (primary) hypertension ; Morbid (severe) obesity due to excess calories ([facility]-HCC); Mixed hyperlipidemia ; Environmental and seasonal allergies; Moderate persistent asthma without complication ([facility]); Primary hypertension ; Gastroesophageal reflux disease, unspecified whether esophagitis present; Enlarged lymph node in neckStart: 10-06-2024 End: 72-02-3750aapkinaqzbDVXL AICHHOLZNot AvailableStart: 10-01-2024 End: 72-61-4665Zwixtkhld Result EncounterGeneric External Data ProviderNOMS External Department UnsolicitedStart: 10-01-2024 End: 92-68-0795Sxczrbqem Result EncounterGeneric External Data ProviderNOMS External Department UnsolicitedStart: 09-23-2024 End: 04-63-3311Uftmkr outpatient new 45 minutesBeverley Siegel MD Work Phone: NOMS CI ENTComment on above:Neck massStart: 09-23-2024 End: 04-56-9451ledypniyhcJQPECDSerenity Artis AvailableStart: 09-23-2024 End: 61-37-4089Mmnydo Ayala Siegel MD Work Phone: NOKN CI ENTStart: 09-23-2024 End: 08-73-6743Isfthv Ayala Siegel MD Work Phone: noms CI ENTStart: 09-18-2024 End: 02-40-2506Txiskb OnlyRossana Alicia MINK SLICER Work Phone: NOMS CWM FMComment on above:Enlarged lymph node in neck (Primary Dx)Start: 09-01-2024 End: 53-94-1979Lvyghs flowsheetRossana Alicia MINK SLICER Work Phone: NOMS CWM FMStart: 09-01-2024 End: 87-81-7072Wlnvcl flowsheetLisa Taylorz MINK SLICER Work Phone: NOMS CWM FMStart: 09-01-2024 End: 73-16-0464hewckfrrbnCMEW AICHHOLZNot AvailableStart: 09-01-2024 End: 00-15-8992Zusuwu outpatient visit 15 minutesLisa Alicia MINK SLICER Work Phone: NOMS CWM FMComment on above:Environmental and seasonal allergies (Primary Dx); Morbid (severe) obesity due to excess calories (CMS/HCC)Start: 08-04-2024 End: 12-64-6755FkluxbJlgd Aichholz MINK SLICER Work Phone: noms CWM FMComment on above:Type 2 diabetes mellitus without complication, without long-term current use of insulin (Primary Dx) Start: 07-17-2024 End: 33-31-5069Oxxmkunfo Result EncounterLisa Renaldoholz MINK SLICER Work Phone: noms External Department UnsolicitedStart: 07-17-2024 End: 56-75-6555Ksvpjfoyc Result EncounterLisa Aichholz MINK SLICER Work Phone: noms External Department UnsolicitedStart: 06-21-2024 End: 43-38-6519Tboyvuxdw Result EncounterLisa Donovanhholz MINK SLICER Work Phone: noms External Department UnsolicitedStart: 06-21-2024 End: 95-96-8782Nghhiqsyy Result EncounterLisa Aichholz MINK SLICER Work Phone: noms External Department UnsolicitedStart: 06-12-2024 End: 43-42-0284Ksrupj flowsheetLisa Aichholz MINK SLICER Work Phone: noms CWM FMStart: 06-12-2024 End: 78-20-2371Uzmjds flowsheetLisa Aichholz MINK SLICER Work Phone: noms CWM FMStart: 06-12-2024 End: 58-35-8549Qcmqkrx encounter procedureLisa Donovanhholz MINK SLICER Work Phone: noms CWM FMComment on above:Encounter for annual wellness visit (AWV) in Medicare patient (Primary Dx); Type 2 diabetes mellitus with diabetic peripheral angiopathy without gangrene (CMS/HCC); Morbid (severe) obesity due to excess calories (CMS/HCC); Essential (primary) hypertension (CMS/HCC); Body mass index (BMI) 36.0-36.9, adult; Obstructive sleep apnea syndrome; Pulmonary emphysema, unspecified emphysema type (CMS/[facility]); Other emphysema ([facility]); Type 2 diabetes mellitus without complication, without long-term current use of insulin ([facility]); Current mild episode of major depressive disorder without prior episode ([facility]) ([facility]); Encounter for screening mammogram for malignant neoplasm of breast; Primary hypertension ([facility]); Mixed hyperlipidemia ([facility]); Environmental and seasonal allergies; Moderate persistent asthma without complication ([facility]); Gastroesophageal reflux disease, unspecified whether esophagitis presentStart: 06-12-2024 End: 52-38-4902nzmhlzgeatLLHK BRANDONZNot AvailableStart: 2024 End: 85-96-3772CygpilDusb Aichholz MINK SLICER Work Phone: noms [facility] FMComment on above:Type 2 diabetes mellitus without complication, without long-term current use of insulin ([facility]) (P rimary Dx)Start: 04-03-2024 End: 45-14-1345ibuwrpkjvbBEUUABE W CLARKENot AvailableStart: 04-03-2024 End: 95-48-7756Yczvux outpatient visit 25 minutesNabila Drummond DPM Work Phone: noms PODIATRYComment on above:Pain of toe of left foot (Primary Dx); Nail dystrophy; Capsulitis of toe, left; Swelling of toe of left footStart: 04-03-2024 End: 56-58-2317swxcwmfkqqGTAIECGLenora Ross AvailableStart: 04-03-2024 End: 32-75-1976Xjyacyjordana Drummond DPM Work Phone: noms PODIATRYStart: 04-03-2024 End: 65-69-4867Rvehxcjordana Drummond DPM Work Phone: noms PODIATRYStart: 03-18-2024 End: 27-35-6346Wivmbyrvi Result EncounterLisa Maral MINK SLICER Work Phone: noms External Department UnsolicitedStart: 03-18-2024 End: 62-76-1486Rqbfyeqqj Result EncounterLisa Aichholz MINK SLICER Work Phone: noms External Department UnsolicitedStart: 03-06-2024 End: 67-36-2305Qyrljr flowsShirley Macarioholz MINK SLICER Work Phone: noms CWM FMStart: 03-06-2024 End: 03-86-3616Qiwycx flowsShirley Macarioholz MINK SLICER Work Phone: noms CWM FMStart: 03-06-2024 End: 65-68-0102Jvbmaq outpatient visit 25 minutesLisa Taylorz MINK SLICER Work Phone: noms CWM FMComment on above:Type [...] present; Hypoglycemia; Needs flu shotStart: 03-06-2024 End: 87-60-3948ycguopmezwWYNG RENALDOHOLCHANDANot AvailableStart: 02-26-2024 End: 07-05-7577ScuabfBbjv Aichholz MINK SLICER Work Phone: noms CWM FMComment on above:Moderate persistent asthma without complication (CMS/HCC); Type 2 diabetes mellitus without complication, without long-term current use of insulin (CMS/HCC)Start: 01-17-2024 End: 87-28-3684BskfpoHnat Aichholz MINK SLICER Work Phone: NOMS CWM FMComment on above:Primary hypertension (CMS/HCC)Start: 12-25-2023 End: 24-59-3627ZdiufqExcb Aichholz MINK SLICER Work Phone: NONY CWM FMComment on above:Moderate persistent asthma without complication (CMS/HCC)Start: 12-18-2023 End: 55-07-6394OgfckfAwax Aichholleonides MINK SLICER Work Phone: noms CWM FMComment on above:Type 2 diabetes mellitus without complication, without long-term current use of insulin (CMS/HCC) (P rimary Dx)Start: 12-14-2023 End: 71-97-2493Txmbixncg Result EncounterLisa Renaldoholz MINK SLICER Work Phone: noms External Department UnsolicitedStart: 12-14-2023 End: 69-76-9855Jrpauxwnf Result EncounterLisa Renaldoholz MINK SLICER Work Phone: noms External Department UnsolicitedStart: 12-05-2023 End: 31-72-1861Bxvzux flowsShirley Macarioholz MINK SLICER Work Phone: noms CWM FMStart: 12-05-2023 End: 21-69-7557Ptwehi flowsheetRossana Macarioholz MINK SLICER Work Phone: noms CWM FMStart: 12-05-2023 End: 08-37-5505Yiemqu outpatient visit 25 minutesRossana Macariorodgerleonides MINK SLICER Work Phone: noms CWM FMComment on above:Type [...] disease, unspecified whether esophagitis presentStart: 12-05-2023 End: 85-99-3015lisfvlikipYEYB DONOVANHHOLZNot AvailableStart: 10-02-2023 End: 21-15-7116Gvodhxfsw Result EncounterLisa Renaldoholz MINK SLICER Work Phone: noms External Department UnsolicitedStart: 10-02-2023 End: 43-35-6945Quzrzseod Result EncounterLisa Brandonz MINK SLICER Work Phone: noms External Department UnsolicitedStart: 06-29-2023 End: 33-86-5609Xveduvixc Result EncounterLisa Renaldoholz MINK SLICER Work Phone: noms External Department UnsolicitedStart: 06-29-2023 End: 90-83-3973Amjxjiieq Result EncounterLisa Renaldoholz MINK SLICER Work Phone: noms External Department UnsolicitedStart: 05-08-2023 Clinisync Result EncounterLisa Renaldoholz MINK SLICER Work Phone: noms External Department UnsolicitedStart: 05-08-2023 Clinisync Result EncounterLisa Brandonz MINK SLICER Work Phone: noms External Department UnsolicitedStart: 04-10-2023 Patient encounter procedureLisa Renaldoholz MINK SLICER Work Phone: noms HealthcareStart: 06-07-2022 End: 84-47-3270fwutbibiuvIRH ROSSANA DONOVANMatthewALFONZOFacility:O5Mdjxj: 05-31-2022 End: 41-01-4840pwlvbvbjpdVvnudrj R NILLFacility: [place]vueStart: 05-31-2022 End: 27-19-6969Hkyaihm encounter procedureMichael R NILL General Surgery Nill/Said Shreya Start: 22-05-4091iupgwrymxaTmjzhrn NILLFacility: [place]vueStart: 05-17-2022 End: 16-45-9532rkhktdssneYkjholu R NILLFacility::[id number]: 04-18-2022 End: 07-31-8944uylcparepfXccxsqo R NILLFacility: [place]vueStart: 04-18-2022 End: 56-79-1689Ufsipvq encounter procedureMichael R NILL General Surgery Nill/Said Shreya Start: 29-25-1322qzaiuzyxgnHshhakj R NILLFacility:GS [place]walkStart: 12-21-2021 End: 55-48-4804nmcdzbbgsiJXK ROSSANA AICHHOLZFacility:Z7Ossms: 09-01-2021 End: 38-69-7422ucxqdlunolYNT ROSSANA AICHHOLZFacility:I7[place]: 07-14-2021 End: 19-85-4893wxmknljfjiRSP ROSSANA AICHHOLZFacility:H1 Procedures DateProcedureProcedure DetailPerforming ClinicianStart: 08-37-2276Hknhgamjtw glycosylated v8kIwns Aichholz MINK SLICER Work Phone: Start: 85-65-9970KV SOFT TISSUE HEAD AND NECKGeneric External Data ProviderStart: 71-70-3876DV TOMOSYNTHESIS SCREENING BILisa Aichholz MINK SLICER Work Phone: Start: 51-94-0979EloxmszexveOiac Aichholz MINK SLICER Work Phone: Start: 37-98-8202ZTS HEMOGLOBIN M7FKbxb Aichholz MINK SLICER Work Phone: Start: 86-20-9740Upeuf foot complete minimum 3 views Nabila Drummond DPM Work Phone: Start: 30-63-0784BOW HEMOGLOBIN D1QTmob Aichholz MINK SLICER Work Phone: Start: 03-59-3743QSB CBC WITH AUTO DIFFLisa Aichholz MINK SLICER Work Phone: Start: 58-59-4152UO SINUS WO CONLisa Aichholz MINK SLICER Work Phone: Start: 03-13-5521AX TOMOSYNTHESIS SCREENING BILisa Aichholz MINK SLICER Work Phone: Start: 70-11-6362RtabudpslizYvyg Aichholz MINK SLICER Work Phone: Start: 99-38-5921FWV HEMOGLOBIN G9AVmol Maral MINK SLICER Work Phone: Start: 00-90-6453TquzvebmdanWuod Maral MINK SLICER Work Phone: Start: 84-32-5023PrgneidibjcUfsq Maral MINK SLICER Work Phone: Start: 11-82-6546AosbhfragjbBfdvfnr NILL Start: 87-81-6525LrgcbygpcvcowwzajxfvtqrciaAsbgbdu NILL Start: 38-25-3870FyycjuybhkvhhziHvgrjsi NILL Start: 18-49-8711NdadmckufvfSqpnxcm NILL Start: 92-37-4634Ollfqc and adenoid structure (body structure)Julian NILL Dilation and curettageMichael NILL EsophagogastroduodenoscopyMichael NILL Excision of lipomaMichael NILL OophorectomyMichael NILL Plan of Treatment DateCare ActivityDetailAuthorStart: 61-23-0288Nchionvoi for malignant neoplasm of colonNOMS HealthcareStart: 32-23-9458Iecqqupd screeningDiabetes: Retinopathy ScreeningNOMS HealthcareStart: 86-24-4558Pzzutrjo screeningDiabetes: Retinopathy ScreeningNOMS HealthcareStart: 28-71-8699Utzmmwmy screeningDiabetes: Retinopathy ScreeningNOMS HealthcareStart: 98-33-0350Zzxhelojm for malignant neoplasm of breastMammogramNOMS HealthcareStart: 06-16-2025 End: 43-67-2405Tiyqxsf encounter etvazhkkm25/24/2026 10:00 AM EDT Office Visit [facility] [address] [place] [address] Rossana Alicia, AYDEE [address] [place] [address] [facility] FMStart: 03-20-2026Medicare Annual Wellness (AWV) Medicare Annual Wellness (AWV)NOM HealthcareStart: 02-11-2025 End: 21-31-3501Elksibh encounter xaaazucbz53/19/2025 11:10 AM EST Office Visit [facility] [place] [facility] [address] [facility] [address] [place] [address] Beverley Siegel MD [address] [facility] [address] [place] [address] NOM [place] OtolaryngologyStart: 01-06-2025 Hemoglobin A1c measurementDiabetes: Hemoglobin M4HOMYC HealthcareStart: 01-06-2025 End: 06-00-5203Xtguwvm encounter uqbodptfs06/14/2025 9:40 AM EDT Office Visit [facility] [address] [place] [address] Rossana Alicia, AYDEE [address] [place] [address] [facility] FMStart: 73-95-9234Hctgc screening for protein Diabetes: Urine Protein ScreeningNODC HealthcareStart: 69-56-8306Jhnqbycxy vaccinationInfluenza Vaccine (#1)NOM HealthcareStart: 10-29-2024 End: 63-35-9530Wnxnxym encounter procedureNOMS CI ENTComment on above:Arrived Start: 10-06-2024 End: 22-93-2109Crqrocr encounter procedureNOMS CWM FMComment on above: Obstructive sleep apnea syndrome (Primary Dx); Essential (primary) hypertension ; Type 2 diabetes mellitus without complication, without long-term current use of insulin (HCC); Morbid (severe) obesity due to excess calories (CMS-HCC)Start: 09-23-2024 End: 37-79-2072Awyhhlv encounter nztxhsxny18/01/2025 2:40 PM EDT Office Visit [facility] [address] [facility] [address] [place] [address] Beverley Siegel MD [address] [facility] [address] [place] [address] Enlarged lymph node in neckNOMS CI ENTComment on above:Enlarged lymph node in neckStart: 26-37-8890Lyzrckpiaw A1c measurement Diabetes: Hemoglobin Z0INYAOHawthorn Children's Psychiatric HospitalStart: 34-87-6733Wfkfcgsls for malignant neoplasm of breastMammogramINTERMOUNTAIN HEALTHCARE HealthcareStart: 33-76-0430Htryoqmbch A1c measurementDiabetes: Hemoglobin I4YKTARHawthorn Children's Psychiatric HospitalStart: 06-12-2024 End: 89-08-1816Qucayakfog A1c/Hemoglobin.total in BloodHemoglobin A1c Lab Routine Type 2 diabetes mellitus without complication, without long-term current use of insulin (CMS/HCC) Expected: 06/12/2024 (Approximate), Expires: 06/12/2025 NOMS HealthcareComment on above:Expected: 06/12/2024 (Approximate), Expires: 06/12/2025Start: 06-12-2024 End: 95-93-2901LH Breast - bilateral ScreeningBilateral screening mammogram Imaging Routine Encounter for screening mammogram for malignant neoplasm of breast Expected: 06/12/2024 (Approximate), Expires: 08/12/2025[facility] Work Phone: Comment on above:Expected: 06/12/2024 (Approximate), Expires: 08/12/2025Start: 06-12-2024 End: 30-99-6216Jpsfdrf encounter procedureNOTULSA CENTER FOR [facility] [place] FMComment on above: Obstructive sleep apnea syndrome (Primary Dx); Type 2 diabetes mellitus with diabetic peripheral angiopathy without gangrene (CMS/HCC); Morbid (severe) obesity due to excess calories (CMS/HCC); Essential (primary) hypertension (CMS/HCC); Body mass index (BMI) 36.0-36.9, adult; Pulmonary emphysema, unspecified emphysema type (CMS/HCC); Other emphysema ([facility]); Type 2 diabetes mellitus without complication, without long-term current use of insulin ([facility]/HCC); Current mild episode of major depressive disorder without prior episode (HCC) ([facility]); Encounter for annual wellness visit (AWV) in Medicare patient; Encounter for screening mammogram for malignant neoplasm of breastStart: 04-29-2024 End: 99-80-2854Akrbjgj encounter ewmvpcriv39/04/2025 2:15 PM EST Office Visit [facility] [address] [place] [address] Nabila Drummond, WINTER [address] [place] [address] [facility] PODIATRYStart: 01-16-2025Medicare Annual Wellness (AWV)Medicare Annual Wellness (AWV)[facility] HealthcareStart: 04-03-2024 End: 45-55-6087Xtfhkbr encounter apzmvkcnz62/09/2025 3:00 PM EST Office Visit [facility] [address] [place] [address] Nabila Drummond, DPJulia [address] [place] [address] ArrivedNOMS PODIATRYComment on above:ArrivedStart: 03-06-2024 End: 82-36-4124Gqnqgrmhxq A1c/Hemoglobin.total in BloodHemoglobin A1c Lab Routine Type 2 diabetes mellitus without complication, without long-term current use of insulin ([facility]) Expected: 03/06/2024 (Approximate), Expires: 03/06/2025 [facility] Work Phone: Comment on above:Expected: 03/06/2024 (Approximate), Expires: 03/06/2025Start: 03-06-2024 End: 98-87-7670Bconnhy encounter procedureNOMS [facility] FMComment on above: Obstructive sleep apnea syndrome (Primary Dx); Pulmonary emphysema, unspecified emphysema type ([facility]/HCC); Moderate persistent asthma without complication ([facility]); Essential hypertension; Obesity (BMI 30-39.9); Type 2 diabetes mellitus without complication, without long-term current use of insulin ([facility]); Current mild episode of major depressive disorder without prior episode ([facility]) ([facility]); Mixed hyperlipidemia ([facility]/HCC); Primary hypertension ([facility]); Environmental and seasonal allergies; Gastroesophageal reflux disease, unspecified whether esophagitis presentStart: 82-83-3920Rguoc screening for proteinDiabetes: Urine Protein ScreeningINTERMOUNTAIN HEALTHCARE HealthcareStart: 11-90-0987Nkuapdpyl vaccinationInfluenza Vaccine (#1)[facility] HealthcareComment on above:Postponed from 11/25/2023 (Patient Does Not Have Time)Start: 75-15-7243Ceqqbgji screeningDiabetes: Retinopathy ScreeningINTERMOUNTAIN HEALTHCARE HealthcareStart: 12-05-2023 End: 69-49-2399RFC W Auto Differential panel - BloodCBC and differential Lab Routine Type 2 diabetes mellitus without complication, without long-term current use of insulin ([facility]) Expected: 12/05/2023 (Approximate), Expires: 12/04/2024[facility] Work Phone: Comment on above:Expected: 12/05/2023 (Approximate), Expires: 12/04/2024Start: 12-05-2023 End: [id number] metabolic 2000 panel - Serum or PlasmaComprehensive metabolic panel Lab Routine Essential hypertension Type 2 diabetes mellitus without complication, without long-term current use of insulin ([facility]) Mixed hyperlipidemia ([facility]) Expected: 12/05/2023 (Approximate), Expires: 12/04/2024 [facility] HealthcareComment on above:Expected: 12/05/2023 (Approximate), Expires: 12/04/2024Start: 12-05-2023 End: 74-12-8187Ozbkgbnxsk A1c/Hemoglobin.total in BloodHemoglobin A1c Lab Routine Type 2 diabetes mellitus without complication, without long-term current use of insulin ([facility]) Expected: 12/05/2023 (Approximate), Expires: 12/04/2024 [facility] HealthcareComment on above:Expected: 12/05/2023 (Approximate), Expires: 12/04/2024Start: 12-05-2023 End: 80-02-5668Jtarv 1996 panel - Serum or PlasmaLipid panel Lab Routine Type 2 diabetes mellitus without complication, without long-term current use of insulin (CMS/HCC) Mixed hyperlipidemia (CMS/HCC) Expected: 12/05/2023 (Approximate), Expires: 12/04/2024[facility] HealthcareComment on above:Expected: 12/05/2023 (Approximate), Expires: 12/04/2024Start: 12-05-2023 End: 71-47-9607Mlyehmhdttii/Creatinine panel in random UrineMicroalbumin / creatinine, urine ratio Lab Routine Essential hypertension Type 2 diabetes mellitus without complication, without long-term current use of insulin (CMS/HCC) Expected: 12/05/2023 (Approximate), Expires: 12/04/2024[facility] Comment on above:Expected: 12/05/2023 (Approximate), Expires: 12/04/2024Start: 12-05-2023 End: 52-06-4980Hekxmnw encounter gmygywkec70/11/2024 2:00 PM EDT Office Visit [facility] [address] [place] [id number] Rossana Alicia NP [address] [place] [address] Essential hypertension (Primary Dx); Type 2 diabetes mellitus with diabetic peripheral angiopathy without gangrene (CMS/HCC); Type 2 diabetes mellitus without complication, without long-term currentuse of insulin (CMS/HCC); Mixed hyperlipidemia (CMS/HCC)[facility] FMComment on above:Essential hypertension (Primary Dx); Type 2 diabetes mellitus with diabetic peripheral angiopathy without gangrene (CMS/HCC); Type 2 diabetes mellitus without complication, without long-term current use of insulin (CMS/HCC); Mixed hyperlipidemia (CMS/HCC)Start: 12-05-2023 End: 93-03-4242Arjdgkhzdz complete panel - UrineUrinalysis with reflex microscopic (clean catch) Lab Routine Essential hypertension Type 2 diabetes mellitus without complication, without long-term current use of insulin ([facility]) Expected: 12/05/2023 (Approximate), Expires: 12/04/2024[facility] Comment on above:Expected: 12/05/2023 (Approximate), Expires: 12/04/2024Start: 42-88-0550Nbnlifxuo vaccinationInfluenza Vaccine (#1)[facility] HealthcareStart: 38-41-6036Xokargmdrh A1c measurementDiabetes: Hemoglobin V6UZIEB Healthcare Start: 19-60-7626Oovhrzfga for malignant neoplasm of breastMammogramNODC HealthcareStart: 05-14-2023 End: 91-89-0165Jezgbpy encounter wskeyqlgn26/19/2024 9:40 AM EST Office Visit [facility] [address] [place] [address] Rossana Alicia NP [address] [place] [address] [facility] FMStart: 20-41-0524Xujazujxpe A1c measurement Diabetes: Hemoglobin F7JEIYD HealthcareStart: 58-78-8564Holkwzvkd vaccination Influenza Vaccine (#1)[facility] HealthcareStart: 21-95-5139Yqgojrchm for malignant neoplasm of colonNODC HealthcareComprehensive metabolic 2000 panel - Serum or PlasmaDayton Children'S HospitalXR Hip - left 2 ViewsTrinity Community Hospital Immunizations Immunization DateImmunizationNotesCare PuhnkrcfJdswcrbe02-15-4333Pcawmljz trivalent influenza vaccine, adjuvanted, preservative freeRossana Alicia MINK SLICER Work Phone: [facility] HospitalWusetqcugh73-61-5794aisxepyyd virus vaccine, unspecified formulationBeverley Siegel MD Work Phone: [facility] HospitalTqvmzzelym45-05-1140Oxytlx Quinonez Cap SARS-CoV-2 VaccinationLisa Maral MINK SLICER Work Phone: [facility] HospitalLvxackpjgx37-94-4461MEEK-ZeN-4 mRNA (pmbudxlsinf-aqrl-fsviowa) vaccineMichael NILL General Surgery Gdkhcrlk87-56-2189HLDS-IsQ-2 (COVID-19) mRNA BNT-162b2 vaxMichael NILL General Surgery Qcxzeyen81-48-1666juvnnqhbo virus vaccine, unspecified formulationMichael NILL General Surgery Itknutle65-90-8426Morsjjczh, Seasonal, Quadrivalent, AdjuvantedLisa Aichholz [employer]INK [employer] Work Phone: [facility] HospitalStuptxnskc74-92-7384MYOE-SdU-3 (COVID-19) mRNA BNT-162b2 vaxMichael NILL General Surgery Koucummh07-34-2912DDPM-BjA-2 (COVID-19) mRNA BNT-162b2 vaxMichael NILL General Surgery BellevueComment on above:Result Comment: 2022-04-18: ESX2568-57-2087tfithzmpf virus vaccine, live, attenuated, for intranasal useMichael NILL [facility] Payers DatePayer CategoryPayerPolicy [id number]-pay2023MedicaidAETNA MEDICARE ADVANTAGE [id number] Health InsuranceAETNA BETTER HEALTH AETNA BETTER HEALTH [id number] 2021-Present [address] [address] [place], [place] [id number] [id number] Health [id number] 2.16.840.1.822527.3.579.2.727 [id number] 2.16.840.1.835819.3.57[id number] 2.840.1.620671.3.57[id number] 2.840.1.867689.3.57[id number] 2.16.840.1.984826.3.57[id number] 2..840.1.124961.3.57[id number] 2.840.1.376471.3.57[id number] 2.16840.1.253455.3.57[id number] 2.16840.1.828428.3.579.2.52698-76-8800Smpkgcn06956044 2.16.840.1.428273.3.579.[id number] 2.16840.1.473076.3.57[id number] 2.16.840.1.250205.3.57[id number] 2.16.840.1.922356.3.57[id number] 2.16.840.1.124871.3.57[id number] 2.16.840.1.438104.3.579.2.[id number] 2.16.840.1.065852.3.579.2.[id number] 2.16.840.1.876503.3.579.2.[id number] 2..840.1.538180.3.579.[id number] 2.16.840.1.628613.3.57[id number] Social History DateTypeDetailFacilityStart: 04-18-2022 End: 65-99-0336Fonpfgn smoking statusEx-smoker (finding)[facility] [place] Start: 59-51-8700Nzyyjen smoking statusNeverGeneral Surgery BellevueStart: 04-09-2023 End: 75-96-1055Dmk [facility]St[facility] End: 98-68-5055Bmozokl of tobacco useCurrent smokerNOMS Healthcare End: 91-68-2832Nojdiny of tobacco useCigarette SmokerNOMS HealthcareStart: 02-22-2023 End: 88-10-0836Malefft use and exposureSmokeless tobacco non-userNOMS Healthcare Start: 04-10-2023 End: 13-13-5230Ttlzohr intakeEx-drinker (finding)[facility] HealthcareStart: 04-09-2023 End: 47-98-5679Pwnnzrd of Social functionNOMS HealthcareWithin the last year, have you been afraid of your partner or ex-partner?NoNOMS HealthcareDo you belong to any clubs or organizations such as congregation groups, unions, fraternal or athletic groups, or [...] (I/we) got money to buy more. Never trueNODC HealthcareStart: 06-66-6228Sgq Assigned At BirthNot on fileINTERMOUNTAIN HEALTHCARE HealthcareHistory of tobacco usePassive smokerNODC HealthcareTobacco smoking status NHISUnknown if ever smokedSouthern [facility] Medical Center Work Phone: SexFemale (finding)[facility] Start: 11-58-8478Kev Assigned At [facility] Medical Equipment Procedure CodeEquipment CodeEquipment Original TextEquipment IdentifierDates Daily 1 each by In Vitro route [id number]: 2024 Functional Status GuxcAgxosbsvsbJmzitpAwmukqip65-00-9286Xmlycvi Health Questionnaire 2 item (PHQ- 2) [Reported][facility] HospitalFynqzqhykr30-27-8189Uys difficult have these problems made it for you to do your work, take care of things at home, or get along with other people?Not difficult at all 06/12/2024 9:52 AM Irene Melgar MA Not difficult at allHawthorn Children's Psychiatric HospitalPurgsrnazz33-65-5512Gelehbr Health Questionnaire 2 item (PHQ-2) [Reported][facility] HospitalMvinvfqecw41-66-0530Kdgdkgdrxn StatusN/AGeneral Surgery BellevueNOMS Healthcare Clinical Notes 04-18-2022 to 10-29-2024 Note Date & EfeiViigBzrimzjx30-33-4128 History of Present illness Narrative* Beverley Siegel [...] Diagnosis Date Noted Moderate asthma without complication ([facility]) 02/26/2023 Type 2 diabetes mellitus without complication, without long-term current use of insulin ([facility]) 02/26/2023 Essential (primary) hypertension 02/26/2023 Environmental and seasonal allergies 02/26/2023 Mixed hyperlipidemia 02/26/2023 Sleep apnea 04/10/2023 Encounter for screening mammogram for malignant neoplasm of breast 04/10/2023 BMI 40.0-44.9, adult [place] 04/10/2023 Encounter for annual wellness visit (AWV) in Medicare patient 04/10/2023 Current mild episode of major depressive disorder without prior episode 04/10/2023 Candidiasis of skin 07/03/2023 Type 2 diabetes mellitus with diabetic peripheral angiopathy without gangrene ([facility]) 10/01/2023 Hypoglycemia 03/06/2024 Needs flu shot 03/06/2024 Morbid (severe) obesity due to excess calories ([facility]) 06/12/2024 Other emphysema ([facility]) 06/12/2024 Enlarged lymph node in neck 09/18/2024 [...] (50 mg) before bedtime. 180 tablet 1 ysydtyim-sltqpjiqu-rmtNIPWIusybw (Maxitrol) 0.1 % ophthalmic suspension INSTILL 1 DROP INTO BOTH EYES FOUR TIMES DAILY FOR 5 DAYS Nystop 558534 UNIT/GM powder omeprazole (PriLOSEC) [address] [...] US in 3 mo. 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 ? Change your bandage. ? Leave stitches [...] provider. Document Revised: 09/03/2023 Document Reviewed: 09/03/2023 [employer] Patient Education ? 2024 Intradiem. Surgery to Biopsy a Lymph Node: What [...] told to. Surgery safety (more content not included)...[facility] CenterMcfjovuq74-86-6108 History of Present illness Narrative* Rossana Alicia [...] being taken. She does not see a telephone engineer.Eye exam is current. SUBJECTIVE: MEDICATIONS: Current Outpatient [...] Mounjaro 10 mg, Subcutaneous, Every 7 days ksasrqyn-lkxbbnjhg-kvyALFCKdwslf (Maxitrol) 0.1 % ophthalmic suspension INSTILL 1 DROP INTO BOTH EYES FOUR TIMES DAILY FOR 5 DAYS Nystop 467302 UNIT/GM powder omeprazole (PRILOSEC) 20 mg, Oral, [...] of both maxillary sinuses 10/01/2023 Emphysema lung ([facility]) 04/10/2023 Emphysema of lung ([facility]) 2021 GERD (gastroesophageal reflux disease) 2021 HL (hearing loss) 1989 Moderate asthma without complication ([facility]) 02/26/2023 Primary hypertension 02/26/2023 Sleep apnea 04/10/2023 Type 2 diabetes mellitus without complication, without long-term current use of insulin ([facility]) 02/26/2023 Past Surgical History: Procedure Laterality [...] that supplies your machine and tubing/filters etc: [employer] Doctor that manages your MERRILL: no body Morbid (severe) obesity due to excess calories ([facility]) Discussed with patient their BMI (actual, [...] DR capsule * Rossana Alicia NP - 10/06/2024 6:33 AM EDTAssociated Problem(s): Morbid (severe) obesity due to excess calories ([facility]) Discussed with patient their BMI (actual, [...] without complication, without long-term current useof insulin ([facility]) Check blood sugars daily, notify if [...] that supplies your machine and tubing/filters etc: [employer] Doctor that manages your MERRILL: no body documented in this [facility]07-14-2025 Instructions* Patient Instructions* Rossana Alicia NP - 10/06/2024 9:40 AM EDT No med changes Keep up the good work documented in this [facility]07-01-2025 History of Present illness Narrative* Beverley Siegel MD - 09/23/2024 2:40 PM EDT Subjective Patient ID: Bhavana Beavers is a 69 y.o. female who presents for enlarged lymp node (CT [facility] 09/12/24) Pt reports she was seen in the [facility] ED 09/11 with a FB sensation in her RT throat. CT obtained that incidentally shows a [id number] structure in the RT post triangle c/w [...] Diagnosis Date Noted Moderate asthma without complication ([facility]) 02/26/2023 Type 2 diabetes mellitus without complication, without long-term current use of insulin ([facility]) 02/26/2023 Essential (primary) hypertension 02/26/2023 Environmental and seasonal allergies 02/26/2023 Mixed hyperlipidemia 02/26/2023 Sleep apnea 04/10/2023 Encounter for screening mammogram for malignant neoplasm of breast 04/10/2023 BMI 40.0-44.9, adult [place] 04/10/2023 Encounter for annual wellness visit (AWV) in Medicare patient 04/10/2023 Current mild episode of major depressive disorder without prior episode 04/10/2023 Candidiasis of skin 07/03/2023 Chronic sinusitis of both maxillary sinuses 10/01/2023 Type 2 diabetes mellitus with diabetic peripheral angiopathy without gangrene ([facility]) 10/01/2023 Hypoglycemia 03/06/2024 Needs flu shot 03/06/2024 Morbid (severe) obesity due to excess calories ([facility]) 06/12/2024 Other emphysema ([facility]) 06/12/2024 Enlarged lymph node in neck 09/18/2024 Resolved Ambulatory Problems Diagnosis Date Noted Primary hypertension 02/26/2023 Class 3 severe obesity due to excess calories with serious comorbidity in adult 02/26/2023 Emphysema lung ([facility]) 04/10/2023 Body mass index (BMI) 36.0-36.9, adult [...] (50 mg) before bedtime. 180 tablet 1 mzykivbp-dkdjdhyzv-glcKSSSKeemrn (Maxitrol) 0.1 % ophthalmic suspension INSTILL 1 DROP INTO BOTH EYES FOUR TIMES DAILY FOR 5 DAYS Nystop 287311 UNIT/GM powder omeprazole (PriLOSEC) [address] [...] us for future comparisons. documented in this encounterHawthorn Children's Psychiatric HospitalKvoshwzada71-83-9395 History of Present illness Narrative* Rossana Alicia [...] lot of pollen blowing. * Rossana Alicia, MINK SLICER - 09/01/2024 1:00 PM EDT Images from [...] Mounjaro 10 mg, Subcutaneous, Every 7 days sylmnssn-nkutgymco-pcqFSLDJoansb (Maxitrol) 0.1 % ophthalmic suspension INSTILL 1 DROP INTO BOTH EYES FOUR TIMES DAILY FOR 5 DAYS Nystop 357683 UNIT/GM powder APPLY TO AFFECTED AREA TWICE [...] Past Medical History: Diagnosis Date Emphysema lung ([facility]) 04/10/2023 Moderate asthma without complication ([facility]) 02/26/2023 Primary hypertension ([facility]) 02/26/2023 Sleep apnea 04/10/2023 Type 2 [...] drinks. Is taking mounjaro documented in this encounterHawthorn Children's Psychiatric HospitalWyvypdqxjg35-18-9809 Instructions* Patient Instructions* Rossana Alicia NP - 09/01/2024 1:00 PM EDT Compress to eyes Allergy meds, add nasal spray and medrol dose back Stop atb eye drop Fu if not better documented in this encounterHawthorn Children's Psychiatric HospitalIpsnkiqagk13-45-6119 History of Present illness Narrative* IRENE GALLEGO [...] compliance problems. There is no history of CAD/MO or heart failure. Diabetes She presents for [...] Mounjaro 7.5 mg, Every 7 days Nystop 817816 UNIT/GM powder APPLY TO AFFECTED AREA TWICE [...] Past Medical History: Diagnosis Date Emphysema lung ([facility]) 04/10/2023 Moderate asthma without complication ([facility]) 02/26/2023 Primary hypertension ([facility]) 02/26/2023 Sleep apnea 04/10/2023 Type 2 diabetes mellitus without complication, without long-term current use of insulin ([facility]) 02/26/2023 Past Surgical History: Procedure Laterality [...] Addressed This Visit Moderate asthma without complication ([facility]) Current meds: breo and albuterol Use of rescue inhaler: Relevant Medications Fluticasone Furoate-Vilanterol (Breo Ellipta) 200-25 MCG/ACT aerosol powder Type 2 diabetes mellitus without complication, without long-term current use of insulin ([facility]) Check blood sugars daily, notify if [...] that supplies your machine and tubing/filters etc: [employer] Doctor that manages your MERRILL: no body [...] and albuterol Other Visit Diagnoses Primary hypertension ([facility]) Relevant Medications amLODIPine (Norvasc) 2.5 MG tablet [...] of major depressive disorder without prior episode ([facility]) ([facility]) Not currently prescribed any medications, per pt's wishes RAMY 7=0 PHQ 9=2 * Rossana Alicia NP - 06/12/2024 6:24 AM EDTAssociated Problem(s): Type 2 diabetes mellitus without complication, without long-term current useof insulin ([facility]) Check blood sugars daily, notify if [...] 06/12/2024 6:23 AM EDTAssociated Problem(s): Other emphysema ([facility]) Current meds: breo inhaler and albuterol * Rossana Alicia NP - 06/12/2024 6:23 AM EDTAssociated Problem(s): Moderate asthma without complication ([facility]) Current meds: breo and albuterol Use [...] your MERRILL: no body documented in this encounterHawthorn Children's Psychiatric HospitalDzeumtlnpb78-30-3851 Instructions* Patient Instructions* Rossana Alicia NP - 06/12/2024 9:40 AM EDT A1c, get done by June 23, documented in this [facility]01-09-2025 History of Present illness Narrative* Nabila Drummond [...] Disp: 90 tablet, Rfl: 1 Continuous Glucose [employer] (Dexcom G7 [employer]) device, 1 each Daily, Disp: 1 each, [...] understanding. Nabila Drummond DPM documented in this encounterHawthorn Children's Psychiatric HospitalHalppsagbx53-07-5073 History of Present illness Narrative* Rossana Alicia, MINK SLICER - 03/06/2024 10:59 AM ESTAssociated Problem(s): Environmental [...] her test strips ordered/ refilled Lot number [id number] 50 strips each Code 16 Free style [...] compliance problems. There is no history of CAD/MO or heart failure. SUBJECTIVE: MEDICATIONS: Current Outpatient [...] Past Medical History: Diagnosis Date Emphysema lung ([facility]) 04/10/2023 Moderate asthma without complication ([facility]) 02/26/2023 Primary hypertension ([facility]) 02/26/2023 Sleep apnea 04/10/2023 Type 2 diabetes mellitus without complication, without long-term current use of insulin ([facility]) 02/26/2023 Past Surgical History: Procedure Laterality [...] complication, without long-term current use of insulin ([facility]) -Primary Check blood sugars daily, notify if [...] Sensor (Dexcom G7 Sensor) misc Continuous Glucose [employer] (Dexcom G7 [employer]) device Tirzepatide (Mounjaro) 7.5 MG/0.5ML solution auto-injector [...] cetirizine (ZyrTEC) 10 MG tablet Mixed hyperlipidemia ([facility]) On statin therapy Check labs yearly and [...] Sensor (Dexcom G7 Sensor) misc Continuous Glucose [employer] (Dexcom G7 [employer]) device Needs flu shot Relevant Orders Flu vaccine, trivalent, adjuvanted, PF ([id number]) (Fluad trivalent single dose syringe) (Completed) Other [...] without complication, without long-term current useof insulin ([facility]) Check blood sugars daily, notify if [...] per night Tolerates well documented in this encounterHawthorn Children's Psychiatric HospitalJqtiujtszr35-22-4543 Instructions* Patient Instructions* Rossana Alicia NP - 03/06/2024 9:40 AM EST See if we can get dexcom through insurance A1c due 03/14/24 documented in this [facility]09-11-2024 History of Present illness Narrative* Rossana Alicia NP - 12/05/2023 4:14 PM EDTAssociated Problem(s): Type 2 diabetes mellitus without complication, without long-term current useof insulin (CMS/HCC) Is continuing to demonstrate weight loss, slow sugar response Discontinue rybelsus, will trial mounjaro at 2.5mg, #1 sample given lot [id number], exp 03/06/24 After 3 weeks will let [...] todays reading and back.. * Rossana Macariorodgerleonides, MINK SLICER - 12/05/2023 2:00 PM EDT Images from [...] Past Medical History: Diagnosis Date Emphysema lung ([facility]) 04/10/2023 Moderate asthma without complication ([facility]) 02/26/2023 Primary hypertension ([facility]) 02/26/2023 Sleep apnea 04/10/2023 Type 2 diabetes mellitus without complication, without long-term current use of insulin ([facility]) 02/26/2023 Past Surgical History: Procedure Laterality [...] mounjaro at 2.5mg, #1 sample given lot [id number], exp 03/06/24 After 3 weeks will let [...] and risk factor modification documented in this encounterHawthorn Children's Psychiatric HospitalWlfuzpdukz18-19-6994 NoteOPERATIVE NOTE OPERATION DATE: 05/17/2022 PREOPERATIVE DIAGNOSIS: [...] room in good condition. CC: Rossana Alicia, [facility]01-24-2023 NoteChief Complaint consultation for screening colonoscopy HPI [...] Sister and Brother. Leukem (more content not included)...[facility] CenterComment on above:Result Comment: Electronically Signed By: FRANKLIN CORTEZ, Julian Case.triston\Date and Time Signed: 04/18/22 15:13 ESTEvaluation + Plan note No data available for this section [facility] [place] Evaluation note* Diagnosis Moderate persistent asthma without [...] of insulin (CMS/HCC)- Primary BMI 40.0-44.9, adult ([facility]) Primary hypertension (CMS/HCC) Unspecified essential hypertension Current mild episode of major depressive disorder without prior episode (HCC) ([facility]) Type 2 diabetes mellitus without complication, without long-term current use of insulin ([facility])- Primary Primary hypertension (CMS/HCC) Unspecified essential hypertension Mixed hyperlipidemia (CMS/HCC) Mixed hyperlipidemia Environmental and seasonal allergies Moderate persistent asthma without complication ([facility]) Candidiasis of skin Candidiasis of skin and nails Gastroesophageal reflux disease, unspecified whether esophagitis present Type 2 diabetes mellitus without complication, without long-term current use of insulin (CMS/HCC)- Primary Moderate persistent asthma without complication ([facility]) Obesity (BMI 30-39.9) Acute non-recurrent frontal sinusitis- Primary Environmental and seasonal allergies Non-recurrent acute suppurative otitis media of right ear without spontaneous rupture of tympanic membrane Chronic sinusitis of both maxillary sinuses- Primary Type 2 diabetes mellitus with 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, unspecified whether terminal superintendent insulin use ([facility]) Peripheral vascular disease, unspecified ([facility]) Peripheral vascular disease, unspecified Type 2 diabetes mellitus without complication, without long-term current use of insulin ([facility]) Obesity (BMI 30-39.9) Type 2 diabetes mellitus without complication, without long-term current use of insulin ([facility])- Primary Type 2 diabetes mellitus with diabetic peripheral angiopathy without gangrene ([facility]) Essential hypertension Unspecified essential hypertension Mixed hyperlipidemia (CMS/HCC) Mixed hyperlipidemia Primary hypertension ([facility]) Unspecified essential hypertension Environmental and seasonal allergies Chronic sinusitis of both maxillary sinuses Moderate persistent asthma without complication ([facility]) Gastroesophageal reflux disease, unspecified whether esophagitis present Primary hypertension ([facility]) Unspecified essential hypertension documented in this encounter [facility] HealthcareEvaluation note* Diagnosis Type 2 diabetes mellitus without complication, without long-term current use of insulin ([facility])- Primary Primary hypertension ([facility]/HCC) Unspecified essential hypertension Moderate persistent asthma without complication ([facility]) Class 3 severe obesity due to excess calories with serious comorbidity in adult, unspecified BMI ([facility]/HCC) Environmental and seasonal allergies Mixed hyperlipidemia (CMS/HCC) [...] complication, without long-term current use of insulin ([facility])- Primary Primary hypertension ([facility]) Unspecified essential hypertension Moderate persistent asthma without complication ([facility]) Class 3 severe obesity due to excess calories with serious comorbidity in adult, unspecified BMI ([facility]) Environmental and seasonal allergies Mixed hyperlipidemia ([facility]/HCC) Mixed hyperlipidemia Gastroesophageal reflux disease, unspecified whether esophagitis present Encounter for screening mammogram for malignant neoplasm of breast- Primary Type 2 diabetes mellitus without complication, without long-term current use of insulin ([facility]) BMI 40.0-44.9, adult ([facility]) Moderate persistent asthma without complication ([facility]) Pulmonary emphysema, unspecified emphysema type ([facility]) Primary hypertension ([facility]) Unspecified essential hypertension Encounter for annual wellness visit (AWV) in Medicare patient Current mild episode of major depressive disorder without prior episode (HCC) ([facility]) Type 2 diabetes mellitus without complication, without long-term current use of insulin ([facility])- Primary BMI 40.0-44.9, adult ([facility]) Primary hypertension ([facility]) Unspecified essential hypertension Current mild episode of major depressive disorder without prior episode (HCC) ([facility]) Type 2 diabetes mellitus without complication, without long-term current use of insulin ([facility])- Primary Primary hypertension ([facility]) Unspecified essential hypertension Mixed hyperlipidemia ([facility]) Mixed hyperlipidemia Environmental and seasonal allergies Moderate persistent asthma without complication ([facility]) Candidiasis of skin Candidiasis of skin and nails Gastroesophageal reflux disease, unspecified whether esophagitis present Type 2 diabetes mellitus without complication, without long-term current use of insulin ([facility])- Primary Moderate persistent asthma without complication ([facility]) Obesity (BMI 30-39.9) Acute non-recurrent frontal sinusitis- Primary Environmental and seasonal allergies Non-recurrent acute suppurative otitis media of right ear without spontaneous rupture of tympanic membrane Chronic sinusitis of both maxillary sinuses- Primary Type 2 diabetes mellitus with 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, unspecified whether fdc insulin use ([facility]) Peripheral vascular disease, unspecified ([facility]) Peripheral vascular disease, unspecified Type 2 diabetes mellitus without complication, without long-term current use of insulin ([facility]) Obesity (BMI 30-39.9) Type 2 diabetes mellitus without complication, without long-term current use of insulin ([facility])- Primary Type 2 diabetes mellitus with [...] complication, without long-term current use of insulin ([facility])- Primary Obstructive sleep apnea syndrome Obstructive sleep apnea (adult) (pediatric) Pulmonary emphysema, unspecified emphysema type ([facility]) Moderate persistent asthma without complication ([facility]) Essential hypertension Unspecified essential hypertension Obesity (BMI 30-39.9) Current mild episode of major depressive disorder without prior episode (HCC) ([facility]) Mixed hyperlipidemia (CMS/HCC) Mixed hyperlipidemia Primary hypertension ([facility]) Unspecified essential hypertension Environmental and seasonal allergies Gastroesophageal reflux disease, unspecified whether esophagitis present Hypoglycemia Hypoglycemia, unspecified Needs flu shot Need for prophylactic vaccination and inoculation against influenza documented in this encounter [facility] HealthcareEvaluation note* Diagnosis Type 2 diabetes mellitus without complication, without long-term current use of insulin ([facility])- Primary Type 2 diabetes mellitus with diabetic peripheral angiopathy without gangrene ([facility]) Essential hypertension Unspecified essential hypertension Mixed hyperlipidemia ([facility]/HCC) Mixed hyperlipidemia Primary hypertension ([facility]) Unspecified essential hypertension Environmental and seasonal allergies Chronic sinusitis of both maxillary sinuses Moderate persistent asthma without complication ([facility]) Gastroesophageal reflux disease, unspecified whether esophagitis present documented in this encounter [facility] HealthcareEvaluation note* Diagnosis Type 2 diabetes mellitus without complication, without long-term current use of insulin ([facility])- Primary documented in this encounter [facility] HealthcareEvaluation note* Diagnosis Type 2 diabetes mellitus without complication, without long-term current use of insulin ([facility])- Primary Primary hypertension ([facility]) Unspecified essential hypertension Moderate persistent asthma without complication ([facility]) Class 3 severe obesity due to excess calories with serious comorbidity in adult, unspecified BMI ([facility]) Environmental and seasonal allergies Mixed hyperlipidemia ([facility]/HCC) Mixed hyperlipidemia Gastroesophageal reflux disease, unspecified whether esophagitis present Encounter for screening mammogram for malignant neoplasm of breast- Primary Type 2 diabetes mellitus without complication, without long-term current use of insulin ([facility]) BMI 40.0-44.9, adult ([facility]) Moderate persistent asthma without complication ([facility]) Pulmonary emphysema, unspecified emphysema type ([facility]) Primary hypertension ([facility]) Unspecified essential hypertension Encounter for annual wellness visit (AWV) in Medicare patient Current mild episode of major depressive disorder without prior episode (HCC) ([facility]) Type 2 diabetes mellitus without complication, without long-term current use of insulin ([facility])- Primary BMI 40.0-44.9, adult ([facility]) Primary hypertension ([facility]) Unspecified essential hypertension Current mild episode of major depressive disorder without prior episode (HCC) ([facility]) Type 2 diabetes mellitus without complication, without long-term current use of insulin ([facility])- Primary Primary hypertension ([facility]) Unspecified essential hypertension Mixed hyperlipidemia (/[facility]) Mixed hyperlipidemia Environmental and seasonal allergies Moderate persistent asthma without complication ([facility]) Candidiasis of skin Candidiasis of skin and nails Gastroesophageal reflux disease, unspecified whether esophagitis present Type 2 diabetes mellitus without complication, without long-term current use of insulin ([facility])- Primary Moderate persistent asthma without complication ([facility]) Obesity (BMI 30-39.9) Acute non-recurrent frontal sinusitis- Primary Environmental and seasonal allergies Non-recurrent acute suppurative otitis media of right ear without spontaneous rupture of tympanic membrane Chronic sinusitis of both maxillary sinuses- Primary Type 2 diabetes mellitus with 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, unspecified whether fdc insulin use ([facility]) Peripheral vascular disease, unspecified ([facility]) Peripheral vascular disease, unspecified Type 2 diabetes mellitus without complication, without long-term current use of insulin ([facility]) Obesity (BMI 30-39.9) Type 2 diabetes mellitus without complication, without long-term current use of insulin ([facility])- Primary Type 2 diabetes mellitus with diabetic peripheral angiopathy without gangrene ([facility]) Essential hypertension Unspecified essential hypertension Mixed hyperlipidemia (CMS/HCC) Mixed hyperlipidemia Primary hypertension ([facility]) Unspecified essential hypertension Environmental and seasonal allergies Chronic sinusitis of both maxillary sinuses Moderate persistent asthma without complication ([facility]) Gastroesophageal reflux disease, unspecified whether esophagitis present Type 2 diabetes mellitus without complication, without long-term current use of insulin ([facility]/HCC)- Primary Obstructive sleep apnea syndrome Obstructive sleep [...] of left foot documented in this encounter [facility] HealthcareEvaluation note* Diagnosis Type 2 diabetes mellitus [...] use of insulin (CMS/HCC) BMI 40.0-44.9, adult ([facility]) Moderate persistent asthma without complication (CMS/HCC) [...] 2 diabetes mellitus with 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, unspecified whether terminal superintendent insulin use (CMS/HCC) Peripheral vascular disease, unspecified (CMS/HCC) Peripheral vascular disease, unspecified Type 2 diabetes mellitus without complication, without long-term current use of insulin (CMS/HCC) Obesity (BMI 30-39.9) Type 2 diabetes mellitus without complication, without long-term current use of insulin (CMS/HCC)- Primary Type 2 diabetes mellitus with diabetic peripheral angiopathy without gangrene ([facility]) Essential hypertension Unspecified essential hypertension Mixed hyperlipidemia (CMS/HCC) Mixed hyperlipidemia Primary hypertension ([facility]) Unspecified essential hypertension Environmental and seasonal allergies Chronic sinusitis of both maxillary sinuses Moderate persistent asthma without complication (CMS/HCC) Gastroesophageal reflux disease, unspecified whether esophagitis present Type 2 diabetes mellitus without complication, without long-term current use of insulin (CMS/HCC)- Primary Obstructive sleep apnea syndrome Obstructive sleep apnea (adult) (pediatric) Pulmonary emphysema, unspecified emphysema type ([facility]) Moderate persistent asthma without complication (CMS/HCC) Essential hypertension Unspecified essential hypertension Obesity (BMI 30-39.9) Current mild episode of major depressive disorder without prior episode (HCC) ([facility]) Mixed hyperlipidemia (CMS/HCC) Mixed hyperlipidemia Primary [...] complication, without long-term current use of insulin ([facility]) BMI 40.0-44.9, adult ([facility]) Moderate persistent asthma without complication ([facility]) Pulmonary emphysema, unspecified emphysema type (CMS/HCC) Primary hypertension ([facility]) Unspecified essential hypertension Encounter for annual wellness visit (AWV) in Medicare patient Current mild episode of major depressive disorder without prior episode (HCC) ([facility]) Type 2 diabetes mellitus without complication, without long-term current use of insulin (CMS/HCC)- Primary BMI 40.0-44.9, adult ([facility]) Primary hypertension ([facility]) Unspecified essential hypertension Current mild episode of major depressive disorder without prior episode (HCC) ([facility]) Type 2 diabetes mellitus without complication, without long-term current use of insulin (/[facility])- Primary Primary hypertension (/[facility]) Unspecified essential hypertension Mixed hyperlipidemia (/[facility]) Mixed hyperlipidemia Environmental and seasonal allergies Moderate persistent asthma without complication ([facility]) Candidiasis of skin Candidiasis of skin and nails Gastroesophageal reflux disease, unspecified whether esophagitis present Type 2 diabetes mellitus without complication, without long-term current use of insulin ([facility]/HCC)- Primary Moderate persistent asthma without complication ([facility]) Obesity (BMI 30-39.9) Acute non-recurrent frontal sinusitis- Primary Environmental and seasonal allergies Non-recurrent acute suppurative otitis media of right ear without spontaneous rupture of tympanic membrane Chronic sinusitis of both maxillary sinuses- Primary Type 2 diabetes mellitus with 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, unspecified whether fdc insulin use (/[facility]) Peripheral vascular disease, unspecified (/[facility]) Peripheral vascular disease, unspecified Type 2 diabetes mellitus without complication, without long-term current use of insulin ([facility]) Obesity (BMI 30-39.9) Type 2 diabetes mellitus without complication, without long-term current use of insulin ([facility]/HCC)- Primary Type 2 diabetes mellitus with diabetic peripheral angiopathy without gangrene ([facility]) Essential hypertension Unspecified essential hypertension Mixed hyperlipidemia (CMS/HCC) Mixed hyperlipidemia Primary hypertension (CMS/HCC) Unspecified essential hypertension Environmental and seasonal allergies Chronic sinusitis of both maxillary sinuses Moderate persistent asthma without complication ([facility]/HCC) Gastroesophageal reflux disease, unspecified whether esophagitis present [...] mellitus with diabetic peripheral angiopathy without gangrene ([facility]) Morbid (severe) obesity due to excess calories (CMS/HCC) Essential (primary) hypertension (CMS/HCC) Unspecified essential hypertension Body mass index (BMI) 36.0-36.9, adult Obstructive sleep apnea syndrome Obstructive sleep apnea (adult) (pediatric) Pulmonary emphysema, unspecified emphysema type (CMS/HCC) Type 2 diabetes mellitus without complication, without long-term current use of insulin ([facility]) Current mild episode of major depressive disorder without prior episode (HCC) ([facility]) Encounter for screening mammogram for malignant neoplasm of breast Primary hypertension ([facility]) Unspecified essential hypertension Mixed hyperlipidemia (CMS/HCC) Mixed [...] major depressive disorder without prior episode (HCC) ([facility]) Type 2 diabetes mellitus without complication, without long-term current use of insulin- Primary BMI 40.0-44.9, adult ([facility]/HCC) Primary hypertension ([facility]) Unspecified essential hypertension Current mild episode of major depressive disorder without prior episode (HCC) ([facility]) Type 2 diabetes mellitus without complication, without long-term current use of insulin- Primary Primary hypertension ([facility]) Unspecified essential hypertension Mixed hyperlipidemia ([facility]/HCC) Mixed hyperlipidemia Environmental and seasonal allergies Moderate persistent asthma without complication ([facility]) Candidiasis of skin Candidiasis of skin and nails Gastroesophageal reflux disease, unspecified whether esophagitis present Type 2 diabetes mellitus without complication, without long-term current use of insulin- Primary Moderate persistent asthma without complication ([facility]) Obesity (BMI 30-39.9) Acute non-recurrent frontal sinusitis- Primary Environmental and seasonal allergies Non-recurrent acute suppurative otitis media of right ear without spontaneous rupture of tympanic membrane Chronic sinusitis of both maxillary sinuses- Primary Type 2 diabetes mellitus with 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, unspecified whether terminal superintendent insulin use ([facility]) Peripheral vascular disease, unspecified ([facility]) Peripheral vascular disease, unspecified Type 2 diabetes mellitus without complication, without long-term current use of insulin Obesity (BMI 30-39.9) Type 2 diabetes mellitus without complication, without long-term current use of insulin- Primary Type 2 diabetes mellitus with diabetic peripheral angiopathy without gangrene ([facility]) Essential hypertension Unspecified essential hypertension Mixed hyperlipidemia ([facility]/HCC) Mixed hyperlipidemia Primary hypertension ([facility]) Unspecified essential hypertension Environmental and seasonal allergies Chronic sinusitis of both maxillary sinuses Moderate persistent asthma without complication ([facility]) Gastroesophageal reflux disease, unspecified whether esophagitis present Type 2 diabetes mellitus without complication, without long-term current use of insulin- Primary Obstructive sleep apnea syndrome Obstructive sleep apnea (adult) (pediatric) Pulmonary emphysema, unspecified emphysema type ([facility]) Moderate persistent asthma without complication ([facility]) Essential hypertension Unspecified essential hypertension Obesity (BMI 30-39.9) Current mild episode of major depressive disorder without prior episode (HCC) ([facility]) Mixed hyperlipidemia ([facility]) Mixed hyperlipidemia Primary hypertension ([facility]) Unspecified essential hypertension Environmental and seasonal allergies Gastroesophageal reflux disease, unspecified whether esophagitis present Hypoglycemia Hypoglycemia, unspecified Needs flu shot Need for prophylactic vaccination and inoculation against influenza Encounter for annual wellness visit (AWV) in Medicare patient- Primary Type 2 diabetes mellitus with diabetic peripheral angiopathy without gangrene ([facility]) Morbid (severe) obesity due to excess calories (CMS/HCC) Essential (primary) hypertension (CMS/HCC) Unspecified essential hypertension Body mass index (BMI) 36.0-36.9, adult Obstructive sleep apnea syndrome Obstructive sleep apnea (adult) (pediatric) Pulmonary emphysema, unspecified emphysema type (CMS/HCC) Type 2 diabetes mellitus without complication, without long-term current use of insulin Current mild episode of major depressive disorder without prior episode (HCC) ([facility]) Encounter for screening mammogram for malignant neoplasm of breast Primary hypertension ([facility]) Unspecified essential hypertension Mixed hyperlipidemia (CMS/HCC) Mixed hyperlipidemia Environmental and seasonal allergies Moderate persistent asthma without complication (CMS/HCC) Gastroesophageal reflux disease, unspecified whether esophagitis present Type 2 diabetes mellitus without complication, without long-term current use of insulin- Primary documented in this encounter [facility] HealthcareEvaluation note* Diagnosis Type 2 diabetes mellitus without complication, without long-term current use of insulin- Primary Primary hypertension (CMS/HCC) Unspecified essential hypertension Moderate persistent asthma without complication ([facility]/HCC) Class 3 severe obesity due to excess [...] major depressive disorder without prior episode (HCC) ([facility]) Type 2 diabetes mellitus without complication, without long-term current use of insulin- Primary BMI 40.0-44.9, adult ([facility]) Primary hypertension (CMS/HCC) Unspecified essential hypertension Current mild episode of major depressive disorder without prior episode (HCC) ([facility]) Type 2 diabetes mellitus without complication, [...] with 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, unspecified whether fdc insulin use ([facility]) Peripheral vascular disease, unspecified ([facility]) Peripheral vascular disease, unspecified Type 2 diabetes mellitus without complication, without long-term current use of insulin Obesity (BMI 30-39.9) Type 2 diabetes mellitus without complication, without long-term current use of insulin- Primary Type 2 diabetes mellitus with diabetic peripheral angiopathy without gangrene ([facility]) Essential hypertension Unspecified essential hypertension Mixed hyperlipidemia (CMS/HCC) Mixed hyperlipidemia Primary hypertension (CMS/HCC) Unspecified essential hypertension Environmental and seasonal allergies Chronic sinusitis of both maxillary sinuses Moderate persistent asthma without complication ([facility]) Gastroesophageal reflux disease, unspecified whether esophagitis present Type 2 diabetes mellitus without complication, without long-term current use of insulin- Primary Obstructive sleep apnea syndrome Obstructive sleep apnea (adult) (pediatric) Pulmonary emphysema, unspecified emphysema type ([facility]) Moderate persistent asthma without complication ([facility]) Essential hypertension Unspecified essential hypertension Obesity (BMI 30-39.9) Current mild episode of major depressive disorder without prior episode (HCC) ([facility]) Mixed hyperlipidemia (CMS/HCC) Mixed hyperlipidemia Primary hypertension ([facility]/HCC) Unspecified essential hypertension Environmental and seasonal allergies Gastroesophageal reflux disease, unspecified whether esophagitis present Hypoglycemia Hypoglycemia, unspecified Needs flu shot Need for prophylactic vaccination and inoculation against influenza Encounter for annual wellness visit (AWV) in Medicare patient- Primary Type 2 diabetes mellitus with diabetic peripheral angiopathy without gangrene ([facility]) Morbid (severe) obesity due to excess calories (CMS/HCC) Essential (primary) hypertension ([facility]/HCC) Unspecified essential hypertension Body mass index (BMI) 36.0-36.9, adult Obstructive sleep apnea syndrome Obstructive sleep apnea (adult) (pediatric) Pulmonary emphysema, unspecified emphysema type ([facility]) Type 2 diabetes mellitus without complication, without long-term current use of insulin Current mild episode of major depressive disorder without prior episode (HCC) ([facility]) Encounter for screening mammogram for malignant neoplasm of breast Primary hypertension (CMS/HCC) Unspecified essential hypertension Mixed hyperlipidemia (CMS/HCC) Mixed hyperlipidemia Environmental and seasonal allergies Moderate persistent asthma without complication ([facility]) Gastroesophageal reflux disease, unspecified whether esophagitis present Environmental and seasonal allergies- Primary Morbid (severe) obesity due to excess calories ([facility]) documented in this encounter [facility] HealthcareEvaluation note* Diagnosis Type 2 diabetes mellitus [...] use of insulin (HCC) BMI 40.0-44.9, adult ([facility]) Moderate persistent asthma without complication (HCC) Pulmonary emphysema, unspecified emphysema type (HCC) Primary hypertension Unspecified essential hypertension Encounter for annual wellness visit (AWV) in Medicare patient Current mild episode of major depressive disorder without prior episode Type 2 diabetes mellitus without complication, without long-term current use of insulin (HCC)- Primary BMI 40.0-44.9, adult ([facility]) Primary hypertension Unspecified essential hypertension Current mild [...] 2 diabetes mellitus with 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, unspecified whether terminal superintendent insulin use (HCC) Peripheral vascular disease, unspecified [...] Morbid (severe) obesity due to excess calories ([facility]-HCC) Essential (primary) hypertension Unspecified essential hypertension Body [...] Morbid (severe) obesity due to excess calories ([facility]-HCC) Enlarged lymph node in neck- Primary documented in this encounter [facility] HealthcareEvaluation note* Diagnosis Type 2 diabetes mellitus [...] use of insulin (HCC) BMI 40.0-44.9, adult ([facility]) Moderate persistent asthma without complication (HCC) Pulmonary emphysema, unspecified emphysema type (HCC) Primary hypertension Unspecified essential hypertension Encounter for annual wellness visit (AWV) in Medicare patient Current mild episode of major depressive disorder without prior episode Type 2 diabetes mellitus without complication, without long-term current use of insulin (HCC)- Primary BMI 40.0-44.9, adult ([facility]) Primary hypertension Unspecified essential hypertension Current mild [...] 2 diabetes mellitus with 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, unspecified whether terminal superintendent insulin use (HCC) Peripheral vascular disease, unspecified [...] Morbid (severe) obesity due to excess calories ([facility]-HCC) Essential (primary) hypertension Unspecified essential hypertension Body [...] Morbid (severe) obesity due to excess calories ([facility]) Neck mass Swelling, mass, or lump in head and neck documented in this encounter [facility] HealthcareEvaluation note* Diagnosis Type 2 diabetes mellitus [...] use of insulin (HCC) BMI 40.0-44.9, adult ([facility]) Moderate persistent asthma without complication (HCC) Pulmonary emphysema, unspecified emphysema type (HCC) Primary hypertension Unspecified essential hypertension Encounter for annual wellness visit (AWV) in Medicare patient Current mild episode of major depressive disorder without prior episode Type 2 diabetes mellitus without complication, without long-term current use of insulin (HCC)- Primary BMI 40.0-44.9, adult ([facility]) Primary hypertension Unspecified essential hypertension Current mild [...] 2 diabetes mellitus with 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, unspecified whether terminal superintendent insulin use (HCC) Peripheral vascular disease, unspecified [...] Morbid (severe) obesity due to excess calories ([facility]) Essential (primary) hypertension Unspecified essential hypertension Body [...] node in neck documented in this encounter [facility] HealthcareEvaluation noteNo assessment information availableSouthern [facility] Work Phone: Evaluation note* Diagnosis Type 2 [...] of insulin (HCC)- Primary BMI 40.0-44.9, adult ([facility]) Primary hypertension Unspecified essential hypertension Current mild [...] 2 diabetes mellitus with 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, unspecified whether terminal superintendent insulin use (HCC) Peripheral vascular disease, unspecified [...] Morbid (severe) obesity due to excess calories ([facility]) Essential (primary) hypertension Unspecified essential hypertension Body [...] Morbid (severe) obesity due to excess calories ([facility]) Type 2 diabetes mellitus without complication, without long-term current use of insulin (HCC)- Primary Obstructive sleep apnea syndrome Obstructive sleep apnea (adult) (pediatric) Essential (primary) hypertension Unspecified essential hypertension Morbid (severe) obesity due to excess calories ([facility]-HCC) Mixed hyperlipidemia Mixed hyperlipidemia Environmental and seasonal [...] diabetic neuropathy, without long-term currenacuteOctober 2024 9:28am [facility] Work Phone: Hospital Discharge instructions No data available for this section [facility] [place] [facility] Discharge instructionsAmbulatory Orders* AMB POC Hgb A1C Time Frame: 01/06/25, Location: Determined By Patient [facility] Work Phone: Progress note No data available for this section General [facility] [place] Reason for referral (narrative)No reason for referral information availableSouthern [facility] Center Work Phone: Summary Purpose Family History No [...] DateEnd Date Kuldip Cisneros MD [facility] - [facility]09/15/22Team MemberRelationshipSpecialtyStart DateEnd Date Kuldip Cisneros MD [address] [place] [address] PCP - [facility]05/21/23 Kuldip Cisneros MD [address] [place] [address] PCP - [facility]05/25/23 Rossana Alicia, MINK SLICER [address] [place] [address] [facility]05/21/23Team MemberRelationshipSpecialtyStart DateEnd Date Kuldip Cisneros MD [address] [place] [address] [facility] - [facility]05/21/23 Kuldip Cisneros MD [address] [place] [address] PCP - [employer]05/25/23 Rossana Alicia, AYDEE [address] [place] [address] Nurse Practitionermily Medicine05/21/23Team MemberRelationshipSpecialtyStart DateEnd Date Kuldip Cisneros MD [address] [place] [address] PCP - GeneralFamily Medicine05/21/23 Kuldip Cisneros MD [address] [place] [address] PCP - [employer]05/25/23 Rossana Alicia NP [address] [place] [address] [facility] Medicine05/21/23Team MemberRelationshipSpecialtyStart DateEnd Date Kuldip Cisneros MD [address] [place] [address] PCP - Generalmily Medicine05/21/23 Kuldip Cisneros MD [address] [place] [address] PCP - [employer]05/25/23 Rossana Alicia NP [address] [place] [address] [facility] Medicine05/21/23Team MemberRelationshipSpecialtyStart DateEnd Date Kuldip Cisneros MD [address] [place] [address] PCP - [facility]05/21/23 Kuldip Cisneros MD [address] [place] [address] [facility]05/25/23 Rossana Alicia, AYDEE [address] [place] [address] [facility]05/21/23Team MemberRelationshipSpecialtyStart DateEnd Date Kuldip Cisneros MD [address] [place] [address] [facility] - [facility]05/21/23 Kuldip Cisneros MD [address] [place] [address] [facility]05/25/23 Rossana Alicia NP [address] [place] [address] [facility]05/21/23Team MemberRelationshipSpecialtyStart DateEnd Date Kuldip Cisneros MD [address] [place] [address] PCP - [facility]05/21/23 Kuldip Cisneros MD [address] [place] [address] PCP - [facility]05/25/23 Rossana Alicia NP [address] [place] [address] [facility] Medicine05/21/23Team MemberRelationshipSpecialtyStart DateEnd Date Kuldip Cisneros MD [address] [place] [address] PCP - [facility]05/21/23 Kuldip Cisneros MD [address] [place] [address] [facility] Rossana Alicia NP [address] [place] [address] [facility]05/21/23Team MemberRelationshipSpecialtyStart DateEnd Date Kuldip Cisneros MD [address] [place] [address] PCP - [facility]05/21/23 Kuldip Cisneros MD [address] [place] [address] PCP - [facility]05/25/23 Rossana Alicia NP [address] [place] [address] [facility]05/21/23Team MemberRelationshipSpecialtyStart DateEnd Date Kuldip Cisneros MD [address] [place] [address] PCP - GeneralFamily Medicine05/21/23 Kuldip Cisneros MD [address] [place] [address] PCP - [employer]05/25/23 Rossana Alicia NP [address] [place] [address] [facility] Medicine05/21/23Team MemberRelationshipSpecialtyStart DateEnd Date Kuldip Cisneros MD [address] [place] [address] [facility]/23 Kuldip Cisneros MD [address] [place] [address] PCP - [employer]05/25/23 Rossana Alicia NP [address] [place] [address] Nurse [facility] Medicine05/21/23Team MemberRelationshipSpecialtyStart DateEnd Date Kuldip Cisneros MD [address] [place] [address] PCP - Generalmily Medicine05/21/23 Kuldip Cisneros MD [address] [place] [address] PCP - [employer]05/25/23 Rossana Alicia NP [address] [place] [address] [facility] Medicine05/21/23Team MemberRelationshipSpecialtyStart DateEnd Date Kuldip Cisneros MD [address] [place] [address] PCP - [facility]05/21/23 Kuldip Cisneros MD [address] [place] [address] PCP - [facility]05/25/23 Rossana Alicia NP [address] [place] [address] [facility]05/21/23Team MemberRelationshipSpecialtyStart DateEnd Date Kuldip Cisneros MD [address] [place] [address] PCP - [facility]05/21/23 Kuldip Cisneros MD [address] [place] [address] PCP - [facility]05/25/23 Rossana Alicia NP [address] [place] [address] [facility]05/21/23Team MemberRelationshipSpecialtyStart DateEnd Date Kuldip Cisneros MD [address] [place] [address] PCP - [facility]05/21/23 Kuldip Cisneros MD [address] [place] [address] PCP - [facility]05/25/23 Rossana Alicia NP [address] [place] [address] [facility]05/21/23Team MemberRelationshipSpecialtyStart DateEnd Date Kuldip Cisneros MD [address] [place] [address] PCP - [facility]05/21/23 Kuldip Cisneros MD [address] [place] [address] PCP - [facility]05/25/23 Rossana Alicia NP [address] [place] [address] [facility]05/21/23Team MemberRelationshipSpecialtyStart DateEnd Date Kuldip Cisneros MD [address] [place] [address] PCP - [facility]05/21/23 Kuldip Cisneros MD [address] [place] [address] PCP - [facility]05/25/23 Rossana Alicia NP [address] [place] [address] [facility] Medicine05/21/23Team MemberRelationshipSpecialtyStart DateEnd Date Kuldip Cisneros MD [address] [place] [address] PCP - [facility]05/21/23 Kuldip Cisneros MD [address] [place] [address] PCP - [employer]05/25/23 Rossana Alicia NP [address] [place] [address] [facility]05/21/23Team MemberRelationshipSpecialtyStart DateEnd Date Kuldip Cisneros MD [address] [place] [address] PCP - [facility]05/21/23 Kuldip Cisneros MD [address] [place] [address] PCP - [employer]05/25/23 Rossana Alicia NP [address] [place] [address] [facility]05/21/23Team MemberRelationshipSpecialtyStart DateEnd Date Kuldip Cisneros MD [address] [place] [address] PCP - GeneralFamily Medicine05/21/23 Kuldip Cisneros MD [address] [place] [address] PCP - [employer]05/25/23 Rossana Alicia, MINK SLICER [address] [place] [address] Nurse Practitionermily Medicine05/21/23Team MemberRelationshipSpecialtyStart DateEnd Date Kuldip Cisneros MD [address] [place] [address] PCP - Generalmily Medicine05/21/23 Kuldip Cisneros MD [address] [place] [address] PCP - [employer]05/25/23 Rosasna Alicia, MINK SLICER [address] [place] [address] [facility]Dec[facility]ally [facility]05/21/23Team MemberRelationshipSpecialtyStart DateEnd Date Kuldip Cisneros MD [address] [place] [address] PCP - Generalmily Medicine05/21/23 Kuldip Cisneros MD [address] [place] [address] PCP - [employer]05/25/23 Rossana Alicia NP [address] [place] [address] [facility]05/21/23Team MemberRelationshipSpecialtyStart DateEnd Date Kuldip Cisneros MD [address] [place] [address] PCP - [facility]05/21/23 Kuldip Cisneros MD [address] [place] [address] PCP - [facility]05/25/23 Rossana Alicia NP [address] [place] [address] [facility]05/21/23 Team Status: Inactive Member Role Status Dates Beverley Siegel Jr, MD Attending Provider Active Start: October 09, 2024 End: October 09, 2024Team MemberRelationshipSpecialtyStart DateEnd Date Kuldip Cisneros MD [address] [place] [address] PCP - [facility]05/21/23 Kuldip Cisneros MD [address] [place] [address] PCP - [facility]05/25/23 Rossana Alicia NP [address] [place] [address] [facility]05/21/23Team MemberRelationshipSpecialtyStart DateEnd Date Kuldip Cisneros MD [address] [place] [address] PCP - [facility]05/21/23 Kuldip Cisneros MD [address] [place] [address] PCP - [facility]05/25/23 Rossana Alicia NP [address] [place] [address] [facility]05/21/23 Team Status: Active Member Role Status Dates Rossana Alicia NP-C Primary Care Provider Active Team Status: Inactive Member Role Status Dates Rossana Alicia NP-C Primary Care Provider Active Start: January 06, 2025 End: January 06, 2025Rossana Alicia NP-CAttending ProviderActiveStart: January 06, 2025 End: January 06, 2025Team MemberRelationshipSpecialtyStart DateEnd Date Kuldip Cisneros MD PCP - [facility]05/21/23 Kuldip Cisneros MD [address] [place] [address] PCP - [facility]05/25/23 Rossana Alicia NP [facility]05/21/23 INFORMATION SOURCE (unrecogn ized section and content) DATE CREATED AUTHOR 06/01/2022 [facility] DATE CREATED AUTHOR AUTHOR'S ORGANIZ ATION 06/16/2022 [facility] DATE CREATED AUTHOR AUTHOR'S ORGANIZ ATION 10/16/2024 [facility] DATE CREATED AUTHOR AUTHOR'S ORGANIZ ATION 10/25/[address] [facility] DATE CREATED AUTHOR AUTHOR'S ORGANIZ ATION 11/01/2024 [facility] EPIC Reason for Visit (unrecogniz ed section and content) ReasonCommentsMed RefillReasonCommentsDiabetesReasonCommentsFoot ProblemBepaula Beavers is a 68 y.o. female. Patient relates Left 5th toenail is sore and discolored. NKI, Patient noticed about 2 weeks ago. Difficult to trim. PCP: Rossana Matamoros 03/06/24, A1C: 9.1 BS: 143ReasonCommentsMedicare Annual Wellness Visit InitialReasonCommentsSore ThroatReasonCommentsenlarged lymp nodeCT [facility] 09/12/24SpecialtyDiagnoses / ProceduresReferred By ContactReferred To Contact Otolaryngology Diagnoses Enlarged lymph node in neck Procedures [place] OFFICE/OUTPATIENT NEW HIGH [facility] 60 MINUTES Rossana Alicia, MINK SLICER [address] [place] [address] Phone: tel: fax: Beverley Siegel MD [address] [facility] [address] [place] [address] Phone: tel: fax: Referral IDStatusReasonStart DateExpiration DateVisits RequestedVisits [id number] Specialty Services Required /[id number] MassFollow up [facility] 10/01/24 FNA/PATH Mag 10/09/24 Goals [...] BE BASED ON THE PRIMARY CLINICAL RECORDS. [employer] [facility] provides no warranty or guarantee of the accuracy or completeness of information in this document.
--- NOTE | 2025-01-30 12:36 | XR_ITS ---
The [address] [address] Patient Name: JAYE PIRES MRN: [id number] date: 1955 Sex: F Assigned Patient Location: LAB Current Patient Location: Accession/Order Number: [id number] Exam Date: 01/30/2025 12:41 Report Date: 01/30/2025 16:37 At the request of: SARAH TREJO NP Procedure: XR hip LT 2V w/ pelvis Single view pelvis and 2 views left hip INDICATION: Pain in the left hip COMPARISON: None FINDINGS: No fracture or dislocation identified. Mild degenerative changes both hips. Minimal enthesopathy identified along the greater trochanteric region left. Overlying soft tissues are. Minor spurring sacral joints. Lower lumbar facet arthropathy. XR/XR hip LT 2V w/ pelvis IMPRESSION: Mild degenerative change. Negative acute osseous abnormalities. Impression dictated by: Leo Glover M.D. 01/30/2025 4:37 PM Dictation Location: [place] [address] Electronically authenticated by: [id number] Y Date: 01/30/2025 16:37
[2025-01-30 12:49] LABS: Hematocrit 42.1 % (36.0-48.0); Hemoglobin 13.6 g/dL (12.0-16.0); Immature Granulocytes Abs Auto 0.01 10^3/uL (0.00-0.03); Immature Granulocytes Pct Auto 0.2 % (0.0-0.5); Lymphocytes Absolute Auto 2.3 10^3/uL (1.2-3.8); Mean Corpuscular HGB Conc 32.3 g/dL (29.9-35.2); Mean Corpuscular Hemoglobin 29.2 pg (26.7-34.0); Mean Corpuscular Volume 90.3 fL (81.0-99.0); Platelet Count 187 10^3/uL (150-450); Red Blood Count 4.66 10^6/uL (4.20-5.40); White Blood Count 5.9 10^3/uL (4.0-11.0)
[2025-01-30 13:41] LABS: Alanine Aminotransferase 24 U/L (14-59); Albumin Globulin Ratio 1.0; Albumin Level 3.4 g/dL (3.4-5.0); Alkaline Phosphatase 141 U/L (46-116); Anion Gap 12.4; Aspartate Amino Transferase 19 U/L (15-37); Blood Urea Nitrogen 16.0 mg/dL (7.0-18.0); Calcium 9.0 mg/dL (8.5-10.1); Carbon Dioxide 27.7 mmol/L (21.0-32.0); Chloride 108 mmol/L (98-107); Cholesterol 133 mg/dL (<=200); Estimated GFR (African America >60 (>=60 mL/min/1.73m^2); Estimated GFR (Non-African Ame >60 (>=60 mL/min/1.73m^2); Globulin 3.5 g/dL; Glucose 116 mg/dL (74-106); HDL Cholesterol 54 mg/dL (40-60); Potassium 4.1 mmol/L (3.5-5.1); Sodium 144 mmol/L (136-145); Total Protein 6.9 g/dL (6.4-8.2); Triglycerides 134 mg/dL (<=150); VLDL CHOLESTEROL 26.8 mg/dL
[2025-01-30 15:56] LABS: Glucose Urine UA >=1000 mg/dL (NEGATIVE)
[2025-01-30 16:40] LABS: Cast Seen? NONE SEEN #/LPF (NONE SEEN); Crystals Seen? None Seen #/HPF (None Seen)
== END 2025-01-30 12:10 | disposition home or self-care (01) ==
LOC: LAB 12:14
PROVIDERS: PCP Nurse Practitioner; Visit Provider Nurse Practitioner
DX: E11.40 Type 2 diabetes mellitus with diabetic neuropathy, unspecified (principal); G47.30 Sleep apnea, unspecified; E66.01 Morbid (severe) obesity due to excess calories; E78.2 Mixed hyperlipidemia; J44.89 Other specified chronic obstructive pulmonary disease; R22.1 Localized swelling, mass and lump, neck; M25.552 Pain in left hip
CPT/HCPCS: 36415; 73502; 76536; 80053; 80061; 81001; 82043; 82570; 85025